=== PATIENT | female | born 1990 | race Caucasian/White ===

== ENCOUNTER 2021-08-08 09:56 | Emergency (ER) | payer OTHER, SELFPAY ==
--- NOTE | ~2021-08-08 | CT_ITS ---
EXAMINATION: CT SOFT TISSUE NECK WITHOUT CONTRAST CLINICAL INFORMATION: Headaches and right jaw, a mouth and ear pain. COMPARISON: None TECHNIQUE: Helical imaging was performed in the axial plane with generation of coronal and sagittal reformatted images. This CT examination was performed using dose optimization techniques as appropriate, variously including the following: *Automated exposure control *Adjustment of mA and/or kV according to patient size (this includes techniques or standardized protocols for targeted exams where dose is matched to indication/reason for exam; i.e. extremities or head) *Use of iterative reconstruction technique DLP: 642 mGy-cm FINDINGS: No cervical lymphadenopathy. No appreciable mucosal space mass. Major salivary glands and thyroid gland are unremarkable. No retropharyngeal edema/swelling. Globes and retro-orbital structures are within normal limits. Normal appearance of the clay dry press operator space. Parapharyngeal fat is symmetric. Minimal hazy atelectasis in the dependent visualized lungs. No consolidation or suspicious appearing pulmonary nodules. Normal caliber visualized thoracic aorta. No lymphadenopathy in the visualized mediastinum. Review of bone windows demonstrates no subluxation or fracture visualized spine. Intervertebral disc heights are maintained. Mild lobulated mucosal thickening along the floor the maxillary antra bilaterally. No air-fluid levels hyperostosis. Paranasal sinuses and mastoid air cells are otherwise normally aerated. Middle ear cavities are normally aerated. Temporomandibular joints are normally located. No appreciable degenerative or erosive change. No periapical lucencies to suggest dental abscess. CT/CT soft tissue neck wo con IMPRESSION: 1. No findings to explain the patient's pain. No soft tissue mass. 2. Minimal mucosal thickening in the maxillary antra bilaterally. No evidence of acute sinusitis.
--- NOTE | ~2021-08-08 | CT_ITS ---
EXAMINATION: CT HEAD WITHOUT CONTRAST CLINICAL INFORMATION: Migraine worse than normal COMPARISON: Head CT 06/10/2019 TECHNIQUE: Imaging was performed from the skull base to vertex without intravenous administration of contrast. This CT examination was performed using dose optimization techniques as appropriate, variously including the following: *Automated exposure control *Adjustment of mA and/or kV according to patient size (this includes techniques or standardized protocols for targeted exams where dose is matched to indication/reason for exam; i.e. extremities or head) *Use of iterative reconstruction technique Total exam dose length product: 702 mGy-cm FINDINGS: No intra or extra-axial fluid collection, hemorrhage, or mass. No ventriculomegaly. No midline shift or herniation. Basal cisterns are patent. Pedersen-white matter differentiation is maintained. No territorial encephalomalacia. Cluster calcifications in the pineal region are unchanged. No significant volume loss. There is no abnormal attenuation within the brain parenchyma. No calvarial fracture or soft tissue abnormality. The mastoid air cells and visualized portions of the paranasal sinuses are well aerated. Small exostosis or osteoma projecting from the inner table of the anterior right frontal bone noted. No aggressive features. CT/CT head/brain wo con IMPRESSION: 1. No acute intracranial pathology.
[2021-08-08 10:32] VITALS: BP 118/61; PULSE 62; RESP 18; TEMP 36.8; O2SAT 98; BMI 31.7
[2021-08-08 11:05] LABS: MANUAL DIFF FLAG NO
[2021-08-08 11:12] LABS: Basophils Percent Auto 0.4 % (0-2); Eosinophils Absolute Auto 0.4 X10*3/uL (0.0-0.4); Eosinophils Percent Auto 3.5 % (0-4); Hemoglobin 13.1 g/dl (12.0-16.0); Imm Gran Abs Auto 0.03 X10*3/uL (0.00-0.03); Imm Gran Pct Auto 0.3 % (0.0-0.4); Lymphocytes Absolute Auto 2.6 X10*3/uL (1.2-4.9); Lymphocytes Percent Auto 24.8 % (20-40); Mean Corpuscular HGB Conc 32.8 g/dl (31.0-35.0); Mean Corpuscular Hemoglobin 28.5 pg (27.0-33.0); Mean Platelet Volume 9.1 fL (9.4-12.3); Monocytes Absolute Auto 0.6 X10*3/uL (0.1-1.2); Monocytes Percent Auto 5.4 % (2-11); Neutrophils Absolute Auto 6.8 x10*3/uL (2.0-8.3); Neutrophils Percent Auto 65.6 % (45-73); Platelet Count 293 X10*3/uL (160-400); Red Cell Distribution Width 12.5 % (11.0-16.0); White Blood Count 10.3 X10*3/uL (4.8-10.8)
[2021-08-08 11:22] LABS: Alanine Aminotransferase 12 U/L (0-31); Albumin Level 4.1 g/dL (3.5-5.0); Alkaline Phosphatase 72 U/L (39-117); Anion Gap 10 (12-20); Aspartate Amino Transferase 12 U/L (5-31); Bilirubin Total 0.2 mg/dL (0.0-1.0); Blood Urea Nitrogen 7 mg/dL (9-16); C Reactive Protein 0.09 mg/dL (< or = 0.50); Calcium 9.3 mg/dL (8.4-10.2); Carbon Dioxide 28 mmol/L (22-29); Chloride 105 mmol/L (96-108); Creatinine Clr Calc Pharmacy 130.1; Estimated Glomerular Filt Rate > 60; Glucose Random 96 mg/dL (60-115); Potassium 4.4 mmol/L (3.3-5.1); Sodium 139 mmol/L (135-145)
[2021-08-08 12:46] LABS: Erythrocyte Sedimentation Rate 6 MM/HR (0-20)
[2021-08-08] MEDS: Ketorolac Tromethamine 30 MG/ML VIAL IM (16:08)
[2021-08-08] MEDS: Butalb/Acetamin/Caff 50/325/40 TABLET 2 TAB PO (16:08)
[2021-08-08 16:22] LABS: Appearance Urine CLEAR; Color Urine YELLOW; Glucose Urine UA NEG (NEG); Leukocyte Esterase Urine NEG (NEG); Nitrite Urine NEG (NEG); Specific Gravity - Urine 1.015 (1.005-1.025); Urine Blood NEG (NEG); Urine Ketones NEG (NEG); Urine Protein NEG (NEG-TRACE)
--- NOTE | 2021-08-08 16:25 | ED.HA ---
HPI - Headache General Chief Complaint: General Medical Stated Complaint: migraine, right jaw pain Time Seen by Provider: 08/08/21 10:51 Source: patient Mode of arrival: ambulatory Limitations: no limitations History of Present Illness HPI Narrative: 31-year-old female with a past medical history of asthma migraine headaches currently on 10 mg of propanolol presenting to the ED with complaints of a migraine headache to the bilateral temporal areas and right side of the face that has been intermittent over the past 3 weeks with associated right ear pain and right jaw pain. 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 She reports that she was seen at the urgent care for an ear infection given Augmentin and no symptomatic relief therefore she returned back to the urgent care this morning and they reported that the infection does not appear to be better and advised her to come to the emergency department they also noticed a lump in the inside of her mouth/she. She reports that [facility] She also had a negative strep and COVID. She reports that she also took 1000 mg of Motrin and 1000 mg of Tylenol. I explained to her that the limit for Motrin is 800 mg every 6-8 hours and she understands not to take a 1000 mg of Motrin next time. She reports that she has been having associated low-grade fevers of 99.0 through 100.0 temp orally otherwise no chills or sweats. She denies any recent falls or trauma, changes in vision, recent tick bite or CO2 exposure, she denies any new medications, recent spinal/epidural procedure, close contacts with similar symptoms, changes in vision, neck pain/stiffness, trouble swallowing or breathing, sore throat, trismus, drooling, changes in voice, recent sick contacts or travel, cough, nasal congestion/rhinorrhea, rashes or any other symptoms complaints or concerns at this time. MD elicited complaint: headache and migraine Pertinent past history: migraines Onset (ago): week(s) (3) Onset description: gradually Location: right, temporal, facial and maxillary Severity: moderate Quality & Timing: aching, throbbing, pulsatile, constant, pressure, progressively worsening and different than previous headaches Exacerbating factors: none Relieving factors: nothing Context: other (Cannot recall) Associated symptoms: fever (99.0-100.0 temporally ) and other (right facial, ear and jaw pain ) Treatments prior to arrival: acetaminophen (1000mg ), ibuprofen (1000mg ) and other (And her prescribed propanolol) Related Data Previous Rx's Medication Instructions Recorded [id number]-ghprcmpefetzi-[id number] 1 cap PO Q8H PRN pain #14 caps 08/08/21 50 mg-300 mg-40 mg capsule (Fioricet) cyclobenzaprine 10 mg tablet 10 mg PO Q8H Muscle spasms #14 tabs 08/08/21 naproxen 500 mg tablet 500 mg PO BID PRN pain #14 tabs 08/08/21 ondansetron 4 mg disintegrating 4 mg PO Q8H nausea/vomiting #14 08/08/21 tablet tabs Allergies Allergy/AdvReac Type Severity Reaction Status Date / Time erythromycin base Allergy Unknown UNKNOWN Verified 08/08/21 10:37 [ERYTHROMYCIN BASE] latex [LATEX] Allergy Unknown UNKNOWN Verified 08/08/21 10:37 Adhesive tape Allergy Unknown Unknown Uncoded 08/08/21 10:37 Erthromycin Allergy Unknown Unknown Uncoded 08/08/21 10:37 Latex Allergy Unknown Unknown Uncoded 08/08/21 10:37 Review of Systems Review of Systems: Constitutional : + Fever's, No changes in activity, No lethargy, No recent prior head injury, No agitation, No increased fussiness ENT/Mouth : + Right Ear Pain/Jaw pain, No Nasal discharge/drainage Eyes: No Eye Pain, No Swelling, No Redness, No Foreign Body, No Vision Changes Cardiovascular : No Chest Pain, No SOB Respiratory : No Cough Gastrointestinal : No Nausea, No Vomiting, No abdominal Pain Genitourinary : No Dysuria, No Urinary Frequency, No Urinary Incontinence, No Urgency, No Flank Pain Musculoskeletal : No joint pain, No neck stiffness, No back pain/injury Skin : No lacerations Neuro : No unsteady gait, No Paresthesias, No Loss of Consciousness, No altered mental status, No dizziness, + Headache Denies past medical history of HIV, recent trauma, coagulopathy, recent spinal/ epidural procedure, new medication, URI symptoms, close contacts with similar symptoms, tick bite, or known CO2 exposure. Yes all other systems are reviewed and are negative PMFSH Past Medical History Attestation statement: The following information was validated with the patient. Source: old records reviewed and nursing notes reviewed Social History Social History Advance Directives: No Advance Directives Information Provided: No Physical Exam Vital Signs: Vital Signs: Last Vital Signs Temp 96.8 F 08/08/21 17:06 Pulse 51 08/08/21 17:06 Resp 16 08/08/21 17:06 BP 105/48 L 08/08/21 17:06 Pulse Ox 98 08/08/21 17:06 O2 Del Method 08/08/21 17:06 BMI result Body Mass Index 31.7 Vital signs have been reviewed as normal and appeared to be correct. Blood pressure normal. Heart rate normal. Respiration rate normal. Temperature normal. Oxygen saturation normal. Appearance: Alert. Oriented X3. No acute distress. Head: Normal external exam. Normocephalic. Atraumatic. Able to rotate head bilaterally. No temporal artery tendinitis on my exam noted. Eyes: PERRLA. EOMI. No nystagmus noted. Conjunctiva and sclera normal. Eyelids normal. Corneal reflex normal. ENT: EAC normal. TM's Normal. Hearing normal. Pharynx normal. Uvula midline. tongue midline. Moist mucous membranes. No trismus noted. No drooling noted. No muffled voice noted. While I firmly palpate the pre-auricular area and have the patient open and close her mouth she reports that she has pain when opening and closing her mouth and she does have some intraoral tenderness on palpation of the pterygoid muscle on the right side. Neck: Normal inspection. Neck supple. FROM. No adenopathy. Thyroid Normal. No meningeal signs. No neck mass noted. CVS: Normal heart rate and rhythm. Heart sound normal. No murmurs noted. Pulses normal throughout. Respiratory: No respiratory distress. Painless inspiration. Breath sounds normal. No wheezes/rales/rhonchi noted. Chest nontender. No accessory muscle usage noted or decreased air movement noted. Back: Full range of motion noted. Skin: Skin warm and dry. Normal skin color. Normal skin turgor. No rashes/lesions/lacerations noted. Extremities: Extremities exhibit normal range of motion. Extremities nontender. Able to shrug shoulders bilaterally and keep up against resistance. Neuro: Oriented X 3. No motor deficit. No sensory deficit. Reflexes normal. Moving all extremities. No focal motor deficits. Cranial nerves II-XI intact bilaterally. Facial strength normal. Normal cognition. Speech normal. Gait normal. Strength 5/5 throughout. No pronator drift. No tremor noted. No fasciculations noted. Muscle tone normal throughout. No asterixis noted. No rigidity noted. Course Course Course Narrative: 16pm - Patient afebrile, resting comfortably in no distress. Non-toxic appearing. Patient denies any recent trauma/injury to head. Neurological exam shows no deficits. BP WNL. Denies any changes in vision. Patient ambulates without difficulty. Given the history, and physical - most likely diagnosis: Migraine ANDREWS. Although due to patient reporting that this is longer than her usual headaches will obtain CT scan of brain/soft tissue neck to evaluate for any acute processes. - labs reviewed and all within normal limits including ESR/CRP. Negative urine - Will treat pain with Fioricet and IM Toradol. And re-evaluate SAH: unlikely given gradual onset and similar to previous episodes Intracranial bleed: unlikely given neg trauma, neg anticoagulation Meningitis: unlikely given pt afebrile, neg stiff neck, no immune compromise. Exam without signs of meningismus Temporal arteritis: Unlikely given Neg jaw claudication, no temporal tenderness or nodularity on exam. Cerebral venous thrombosis: unlikely given no h/o hypercoaguable state, no chronic head/neck infection. Reevaluation(s) Reevaluation #1: - CT scan of head and neck revealed chronic changes no acute processes noted. Therefore patient most likely TMJ syndrome and migraine headaches. Will DC home with symptomatic treatment instructions return if any new or worsening symptoms follow up with primary care provider. Patient understands agrees with this plan. Time: 17:23 [facility] - Headache Medical Records Attestation: I reviewed the patient's medical records. Lab Data Attestation: I reviewed the patient's lab results. Result diagrams: 08/08/21 11:03 08/08/21 11:03 Labs: Lab Results 08/08/21 08/08/21 08/08/21 Range/Units 11:03 11:03 11:03 WBC 10.3 (4.8-10.8) X10*3/uL RBC 4.60 (4.20-5.50) X10*6/uL Hgb 13.1 (12.0-16.0) g/dl Hct 40.0 (37.0-47.0) % MCV 87.0 (80.0-98.0) fL MCH 28.5 (27.0-33.0) pg MCHC 32.8 (31.0-35.0) g/dl RDW 12.5 (11.0-16.0) % Plt Count 293 (160-400) X10*3/uL MPV 9.1 L (9.4-12.3) fL Immature Gran % (Auto) 0.3 (0.0-0.4) % Neut % (Auto) 65.6 (45-73) % Lymph % (Auto) 24.8 (20-40) % Dunn % (Auto) 5.4 (2-11) % Eos % (Auto) 3.5 (0-4) % Baso % (Auto) 0.4 (0-2) % Lymph # (Auto) 2.6 (1.2-4.9) X10*3/uL Dunn # (Auto) 0.6 (0.1-1.2) X10*3/uL Eos # (Auto) 0.4 (0.0-0.4) X10*3/uL Baso # (Auto) 0.0 (0.0-0.2) X10*3/uL Abs Immat Gran (auto) 0.03 (0.00-0.03) X10*3/uL Absolute Neuts (auto) 6.8 (2.0-8.3) x10*3/uL Absolute Nucleated RBC 0.000 (0.0-0.012) X10*3/uL Nucleated RBC % (auto) 0.0 (0.0-0.2) /100WBC ESR 6 (0-20) MM/HR Sodium 139 (135-145) mmol/L Potassium 4.4 (3.3-5.1) mmol/L Chloride 105 (96-108) mmol/L Carbon Dioxide 28 (22-29) mmol/L Anion Gap 10 L (12-20) BUN 7 L (9-16) mg/dL Creatinine 0.65 (0.5-1.4) mg/dL Estim Creat Clear Calc 130.1 Estimated GFR > 60 Random Glucose 96 (60-115) mg/dL Lactic Acid (0.5-2.0) mmol/L Calcium 9.3 (8.4-10.2) mg/dL Total Bilirubin 0.2 (0.0-1.0) mg/dL AST 12 (5-31) U/L ALT 12 (0-31) U/L Alkaline Phosphatase 72 (39-117) U/L C-Reactive Protein 0.09 (< or = 0.50) mg/dL Total Protein 6.0 L (6.5-8.0) g/dL Albumin 4.1 (3.5-5.0) g/dL Urine Test (NEGATIVE) 08/08/21 08/08/21 Range/Units 11:03 16:06 WBC (4.8-10.8) X10*3/uL RBC (4.20-5.50) X10*6/uL Hgb (12.0-16.0) g/dl Hct (37.0-47.0) % MCV (80.0-98.0) fL MCH (27.0-33.0) pg MCHC (31.0-35.0) g/dl RDW (11.0-16.0) % Plt Count (160-400) X10*3/uL MPV (9.4-12.3) fL Immature Gran % (Auto) (0.0-0.4) % Neut % (Auto) (45-73) % Lymph % (Auto) (20-40) % Dunn % (Auto) (2-11) % Eos % (Auto) (0-4) % Baso % (Auto) (0-2) % Lymph # (Auto) (1.2-4.9) X10*3/uL Dunn # (Auto) (0.1-1.2) X10*3/uL Eos # (Auto) (0.0-0.4) X10*3/uL Baso # (Auto) (0.0-0.2) X10*3/uL Abs Immat Gran (auto) (0.00-0.03) X10*3/uL Absolute Neuts (auto) (2.0-8.3) x10*3/uL Absolute Nucleated RBC (0.0-0.012) X10*3/uL Nucleated RBC % (auto) (0.0-0.2) /100WBC ESR (0-20) MM/HR Sodium (135-145) mmol/L Potassium (3.3-5.1) mmol/L Chloride (96-108) mmol/L Carbon Dioxide (22-29) mmol/L Anion Gap (12-20) BUN (9-16) mg/dL Creatinine (0.5-1.4) mg/dL Estim Creat Clear Calc Estimated GFR Random Glucose (60-115) mg/dL Lactic Acid 1.0 (0.5-2.0) mmol/L Calcium (8.4-10.2) mg/dL Total Bilirubin (0.0-1.0) mg/dL AST (5-31) U/L ALT (0-31) U/L Alkaline Phosphatase (39-117) U/L C-Reactive Protein (< or = 0.50) mg/dL Total Protein (6.5-8.0) g/dL Albumin (3.5-5.0) g/dL Urine Test NEGATIVE (NEGATIVE) Imaging Data CT scan of brain and soft tissue neck without contrast: Attestation: I personally reviewed and interpreted this imaging study as follows: Radiologist's impression: FINDINGS: No intra or extra-axial fluid collection, hemorrhage, or mass. No ventriculomegaly. No midline shift or herniation. Basal cisterns are patent. Pedersen-white matter differentiation is maintained. No territorial encephalomalacia. Cluster calcifications in the pineal region are unchanged. No significant volume loss. There is no abnormal attenuation within the brain parenchyma. No calvarial fracture or soft tissue abnormality.? The mastoid air cells and visualized portions of the paranasal sinuses are well aerated. Small exostosis or osteoma projecting from the inner table of the anterior right frontal bone noted. No aggressive features. CT/CT head/brain wo con IMPRESSION: 1. No acute intracranial pathology. FINDINGS: No cervical lymphadenopathy. No appreciable mucosal space mass. Major salivary glands and thyroid gland are unremarkable. No retropharyngeal edema/swelling. Globes and retro-orbital structures are within normal limits. Normal appearance of the crossbow maker space. Parapharyngeal fat is symmetric. Minimal hazy atelectasis in the dependent visualized lungs. No consolidation or suspicious appearing pulmonary nodules. Normal caliber visualized thoracic aorta. No lymphadenopathy in the visualized mediastinum. Review of bone windows demonstrates no subluxation or fracture visualized spine. Intervertebral disc heights are maintained. Mild lobulated mucosal thickening along the floor the maxillary antra bilaterally. No air-fluid levels hyperostosis. Paranasal sinuses and mastoid air cells are otherwise normally aerated. Middle ear cavities are normally aerated. Temporomandibular joints are normally located. No appreciable degenerative or erosive change. No periapical lucencies to suggest dental abscess. CT/CT soft tissue neck wo con IMPRESSION: ? ? 1. No findings to explain the patient's pain. No soft tissue mass. 2. Minimal mucosal thickening in the maxillary antra bilaterally. No evidence of acute sinusitis. ? 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
[2021-08-08 16:31] LABS: UPreg QC Valid YES; Urine Pregnancy NEGATIVE (NEGATIVE)
[2021-08-08] MEDS: Ondansetron ODT 4 MG TAB.RAPDIS TRANSLINGU (17:00)
[2021-08-08] MEDS: Cyclobenzaprine HCl 10 MG TABLET PO (17:00)
[2021-08-08 17:06] VITALS: BP 105/48; PULSE 51; RESP 16; TEMP 36; O2SAT 98
== END 2021-08-08 17:43 | disposition home or self-care (01) ==
PROVIDERS: Emergency Medicine Emergency Medical Services; Physician Assistant Medical; Emergency Provider Emergency Medicine; PCP Registered Nurse
DX: G43.909 Migraine, unspecified, not intractable, without status migrainosus (principal); M26.621 Arthralgia of right temporomandibular joint; Z79.899 Other long term (current) drug therapy
CPT/HCPCS: 36415; 70450; 70490; 80053; 81003; 81025; 83605; 85025; 85652; 86140; 99283; J1885

== ENCOUNTER 2021-10-04 08:22 | Emergency (ER) | payer OTHER, SELFPAY ==
--- NOTE | ~2021-10-04 | CT_ITS ---
EXAMINATION: CT ABDOMEN AND PELVIS WITHOUT CONTRAST CLINICAL INFORMATION: Negative test bilateral back/flank pain COMPARISON: CT abdomen and pelvis from 01/14/2016 TECHNIQUE: Multidetector volumetric imaging was performed from the superior aspect of the liver through the pubic symphysis. Sagittal and coronal reformatted images were obtained on the technologist's workstation. This CT examination was performed using dose optimization techniques as appropriate, variously including the following: *Automated exposure control *Adjustment of mA and/or kV according to patient size (this includes techniques or standardized protocols for targeted exams where dose is matched to indication/reason for exam; i.e. extremities or head) *Use of iterative reconstruction technique DLP: 677 mGy-cm FINDINGS: LUNG BASES: The visualized lung bases are unremarkable. LIVER, GALLBLADDER, AND BILIARY TREE: The liver is normal in size, shape, and attenuation. No focal hepatic lesion or biliary ductal dilatation is present. The gallbladder is unremarkable with no evidence of radiopaque gallstones, gallbladder wall thickening, or obvious pericholecystic inflammatory changes. PANCREAS: Unremarkable. SPLEEN: Spleen is enlarged measuring up to 14.8 cm. ADRENAL GLANDS: Unremarkable. KIDNEYS AND URETERS: The kidneys are normal in size, shape, and attenuation. No hydronephrosis, hydroureter, or calculi seen. No perinephric stranding. BLADDER: Unremarkable. GASTROINTESTINAL TRACT: The small and large bowel are unremarkable. The appendix is surgically absent. ABDOMINAL WALL: Fat filled umbilical hernia. LYMPH NODES: Redemonstration of multiple mildly prominent lymph nodes inferior to the right kidney and in the right lower quadrant of the abdomen, nonspecific though may represent an element of mesenteric adenitis in the appropriate clinical setting the largest of which measures 1.1 cm in short axis. VASCULAR: Abdominal aorta is nonaneurysmal. Pelvic phleboliths are noted. PELVIC VISCERA: Anteverted uterus. Left adnexal/ovarian hypodensity demonstrating fluid attenuation statistically representing a cyst measuring up to 2.2 cm. OSSEOUS STRUCTURES: Multilevel degenerative changes of the thoracolumbar spine. Stable loss of height of the superior endplate of T11. No large lytic or blastic lesions are noted. CT/CT abdomen pelvis wo con IMPRESSION: 1. No acute process of the abdomen or pelvis visualized. 2. Splenomegaly measuring up to 14.8 cm. 3. Redemonstration of multiple mildly prominent lymph nodes inferior to the right kidney and in the right lower quadrant of the abdomen, nonspecific though may represent an element of mesenteric adenitis in the appropriate clinical setting the largest of which measures 1.1 cm in short axis. 4. Fat filled umbilical hernia. 5. Left adnexal/ovarian hypodensity demonstrating fluid attenuation statistically representing a cyst measuring up to 2.2 cm.
[2021-10-04 08:32] VITALS: BP 129/73; PULSE 74; RESP 20; TEMP 36.8; O2SAT 98
--- NOTE | 2021-10-04 08:54 | ED_ITS ---
HPI - Abdominal Pain General Chief Complaint: General Medical Stated Complaint: Back pain/Vomiting/Covid+ 09/29 Time Seen by Provider: 10/04/21 08:29 Source: patient Mode of arrival: ambulatory Limitations: no limitations History of Present Illness HPI narrative: Patient presents emergency department for evaluation of bilateral flank pain. Onset 4 days ago. Initially a dull ache. Now having severe 10/10 pain. Right is worse than the left, and is beginning to radiate towards the front. Reports a history of kidney infections and this feels similar but is just worse. Associated nausea, vomiting, decreased urinary output inability to tolerate food. She states that she tested positive for COVID-19 5 days ago, initially she thought her symptoms were just due to muscular aches. Denies fevers, chills, dysuria, urinary frequency/urgency, hematuria, possibility of , last menstrual period 09/21/2021. Related Data Previous Rx's Medication Instructions Recorded gsulvdcfpt-[id number]-kruuqaiz 1 cap PO Q8H PRN pain #14 caps 08/08/21 50 mg-300 mg-40 mg capsule (Fioricet) cyclobenzaprine 10 mg tablet 10 mg PO Q8H Muscle spasms #14 tabs 08/08/21 naproxen 500 mg tablet 500 mg PO BID PRN pain #14 tabs 08/08/21 ondansetron 4 mg disintegrating 4 mg PO Q8H nausea/vomiting #14 08/08/21 tablet tabs cephalexin 500 mg capsule 500 mg PO BID 10 days #20 caps 10/04/21 naproxen 500 mg tablet 500 mg PO BID PRN pain 5 days #10 10/04/21 tabs oxycodone 5 mg capsule 5 mg PO Q8H PRN pain, severe 3 10/04/21 days #7 caps Allergies Allergy/AdvReac Type Severity Reaction Status Date / Time erythromycin base Allergy Unknown UNKNOWN Verified 08/08/21 10:37 [ERYTHROMYCIN BASE] latex [LATEX] Allergy Unknown UNKNOWN Verified 08/08/21 10:37 Adhesive tape Allergy Unknown Unknown Uncoded 08/08/21 10:37 Erthromycin Allergy Unknown Unknown Uncoded 08/08/21 10:37 Latex Allergy Unknown Unknown Uncoded 08/08/21 10:37 Review of Systems Review of Systems Constitutional : No Weight loss, No Fever, No Chills ENT/Mouth :? No sore throat, No Rhinorrhea Eyes: No Swelling, No Redness Cardiovascular : No Chest Pain, No SOB, No Edema Respiratory : No Cough, No Sputum, No Wheezing Gastrointestinal : Positive Nausea, Positive Vomiting, no Diarrhea, positive abdominal pain, No Hematochezia, No Melena Genitourinary : No Dysuria, No Urinary Frequency, No Hematuria, No Urgency? Musculoskeletal : No joint pain, No Myalgias, No Joint Swelling Skin : No Skin Lesions, No rash Neuro : No Weakness, No Numbness, No Dizziness, No Headache Psych : No Anxiety/Panic, No Depression Heme/Lymph: No Bruising, No Lymphadenopathy Endocrine : No Polyuria, No Polydipsia Yes all other systems are reviewed and are negative [facility] Past Medical History Attestation statement: The following information was validated with the patient. Source: old records reviewed Social History Social History Advance Directives: No Advance Directives Information Provided: Yes Physical Exam ED Vital Signs: Vital Signs - 24 hr 10/04/21 08:32 10/04/21 08:57 10/04/21 11:28 Temperature 98.2 F 98.2 F Pulse Rate 74 74 62 Respiratory Rate 20 20 18 Blood Pressure 129/73 129/73 115/50 L Pulse Oximetry 98 98 100 Oxygen Delivery Method Room Air Room Air Room Air 10/04/21 11:33 Temperature Pulse Rate Respiratory Rate 16 Blood Pressure Pulse Oximetry Oxygen Delivery Method BMI result Body Mass Index 31.7 Vital signs have been reviewed as normal and appeared to be correct. Blood pressure normal.? Heart rate normal.? Respiration rate normal. Temperature norm al.? Oxygen saturation normal. Appearance: Alert.?Oriented to person, place and time. No acute distress.?Normal affect. Eyes: Pupils equal, round and reactive to light.? ENT: Pharynx normal.?? Neck: Normal inspection.? Neck supple.?? CVS: Heart sounds normal. Normal heart rate and rhythm.? Pulses normal.?? Respiratory: No respiratory distress.? Lung sounds clear to auscultation bilaterally?? Abdomen: Soft and non-tender. Normoactive bowel sounds. Positive CVA tenderness bilaterally Skin: Skin warm and dry.? Normal skin color.? Extremities: No lower extremity edema.? Neuro: Moves all extremities spontaneously. Sensation intact bilaterally. No motor deficits Ambulates with normal steady gait. Course Course Course Narrative: Patient is a 31-year-old female presents emergency department for evaluation of bilateral flank pain and subjective decreased urinary output. She appears uncomfortable, tearful, vital signs are stable she is afebrile and not tachycardic. Will obtain CBC to evaluate for leukocytosis/ anemia, CMP and lipase to evaluate for abnormal electrolytes /abnormal renal function/ abnormal hepatic/biliary function, urine and Urinalysis. CT of the abdomen to evaluate for pyelonephritis versus nephrolithiasis. Patient receive normal saline 1 L IV bolus, Reglan IV, and Toradol IV. Disposition pending results. Reevaluation(s) Reevaluation #1: CBC is overall unremarkable. CMP is unremarkable. Urine test is negative. Urinalysis reveals a small amount of blood, trace leukocyte esterase. CT of the abdomen and pelvis is pending at this time. Upon re-evaluation, pain remains 8/10, will trial morphine IV. Time: 10:43 Reevaluation #2: CT of the abdomen and pelvis reveals no acute process, incidental finding of splenomegaly, redemonstration of prominent lymph nodes inferior to right kidney and right lower quadrant, fat filled umbilical hernia, and left adnexal/ovarian hypodensity likely representing a cyst. Overall no acute explanation for patient's pain. At this time, will begin treatment for urinary tract infection, presumed pyelonephritis given bilateral CVA tenderness. Discussed worsening signs and symptoms the patient should return back to the emergency department for. Advised outpatient follow-up with her primary care provider within 2-3 d ays. Patient verbalized understanding, and discharged home in stable condition. Time: 11:20 [facility] - Abdominal Pain Medical Records Attestation: I reviewed the patient's medical records. Lab Data Attestation: I reviewed the patient's lab results. Result diagrams: 10/04/21 09:13 10/04/21 09:12 Labs: Lab Results 10/04/21 10/04/21 10/04/21 Range/Units 09:05 09:05 09:12 WBC (4.8-10.8) X10*3/uL RBC (4.20-5.50) X10*6/uL Hgb (12.0-16.0) g/dl Hct (37.0-47.0) % MCV (80.0-98.0) fL MCH (27.0-33.0) pg MCHC (31.0-35.0) g/dl RDW (11.0-16.0) % Plt Count (160-400) X10*3/uL MPV (9.4-12.3) fL Immature Gran % (Auto) (0.0-0.4) % Neut % (Auto) (45-73) % Lymph % (Auto) (20-40) % [place] % (Auto) (2-11) % Eos % (Auto) (0-4) % Baso % (Auto) (0-2) % Lymph # (Auto) (1.2-4.9) X10*3/uL [place] # (Auto) (0.1-1.2) X10*3/uL Eos # (Auto) (0.0-0.4) X10*3/uL Baso # (Auto) (0.0-0.2) X10*3/uL Abs Immat Gran (auto) (0.00-0.03) X10*3/uL Absolute Neuts (auto) (2.0-8.3) x10*3/uL Absolute Nucleated RBC (0.0-0.012) X10*3/uL Nucleated RBC % (auto) (0.0-0.2) /100WBC Sodium 140 (135-145) mmol/L Potassium 4.4 (3.3-5.1) mmol/L Chloride 105 (96-108) mmol/L Carbon Dioxide 24 (22-29) mmol/L Anion Gap 15 (12-20) BUN 10 (9-16) mg/dL Creatinine 0.81 (0.5-1.4) mg/dL Estim Creat Clear Calc 104.5 Estimated GFR > 60 Random Glucose 89 (60-115) mg/dL Calcium 9.2 (8.4-10.2) mg/dL Total Bilirubin 0.5 (0.0-1.0) mg/dL AST 26 D (5-31) U/L ALT 25 (0-31) U/L Alkaline Phosphatase 106 D (39-117) U/L Total Protein 6.5 (6.5-8.0) g/dL Albumin 4.1 (3.5-5.0) g/dL Lipase 21 (8-78) U/L Urine Color Yellow Urine Appearance Hazy Urine pH 7.0 (5.0-8.0) Ur Specific [place] 1.015 (1.005-1.025) Urine Protein Negative (Neg-Trace) mg/dL Urine Glucose (UA) Negative (Negative) mg/dL Urine Ketones Negative (Negative) mg/dL Urine Blood Small (1+) H (Negative) Urine Nitrite Negative (Negative) Ur Leukocyte Esterase Trace H (Negative) Urine RBC 0-2 (0-2) /HPF Urine WBC 0-5 (0-5) /HPF Ur Squamous Epith Cells 11-20 (0-2) /HPF Urine Bacteria Trace (None Seen) Hyaline Casts 0-2 (0-2) /LPF Urine Test NEGATIVE (NEGATIVE) 10/04/21 Range/Units 09:13 WBC 6.2 (4.8-10.8) X10*3/uL RBC 4.70 (4.20-5.50) X10*6/uL Hgb 13.4 (12.0-16.0) g/dl Hct 40.1 (37.0-47.0) % MCV 85.3 (80.0-98.0) fL MCH 28.5 (27.0-33.0) pg MCHC 33.4 (31.0-35.0) g/dl RDW 12.7 (11.0-16.0) % Plt Count 310 (160-400) X10*3/uL MPV 9.2 L (9.4-12.3) fL Immature Gran % (Auto) 0.3 (0.0-0.4) % Neut % (Auto) 52.6 (45-73) % Lymph % (Auto) 30.8 (20-40) % [place] % (Auto) 10.6 (2-11) % Eos % (Auto) 5.2 H (0-4) % Baso % (Auto) 0.5 (0-2) % Lymph # (Auto) 1.9 (1.2-4.9) X10*3/uL [place] # (Auto) 0.7 (0.1-1.2) X10*3/uL Eos # (Auto) 0.3 (0.0-0.4) X10*3/uL Baso # (Auto) 0.0 (0.0-0.2) X10*3/uL Abs Immat Gran (auto) 0.02 (0.00-0.03) X10*3/uL Absolute Neuts (auto) 3.2 (2.0-8.3) x10*3/uL Absolute Nucleated RBC 0.000 (0.0-0.012) X10*3/uL Nucleated RBC % (auto) 0.0 (0.0-0.2) /100WBC Sodium (135-145) mmol/L Potassium (3.3-5.1) mmol/L Chloride (96-108) mmol/L Carbon Dioxide (22-29) mmol/L Anion Gap (12-20) BUN (9-16) mg/dL Creatinine (0.5-1.4) mg/dL Estim Creat Clear Calc Estimated GFR Random Glucose (60-115) mg/dL Calcium (8.4-10.2) mg/dL Total Bilirubin (0.0-1.0) mg/dL AST (5-31) U/L ALT (0-31) U/L Alkaline Phosphatase (39-117) U/L Total Protein (6.5-8.0) g/dL Albumin (3.5-5.0) g/dL Lipase (8-78) U/L Urine Color Urine Appearance Urine pH (5.0-8.0) Ur Specific [place] (1.005-1.025) Urine Protein (Neg-Trace) mg/dL Urine Glucose (UA) (Negative) mg/dL Urine Ketones (Negative) mg/dL Urine Blood (Negative) Urine Nitrite (Negative) Ur Leukocyte Esterase (Negative) Urine RBC (0-2) /HPF Urine WBC (0-5) /HPF Ur Squamous Epith Cells (0-2) /HPF Urine Bacteria (None Seen) Hyaline Casts (0-2) /LPF Urine Test (NEGATIVE) Imaging Data CT scan - abdomen: Radiologist's impression: CT/CT abdomen pelvis wo con IMPRESSION: 1.? No acute process of the abdomen or pelvis visualized. 2.? Splenomegaly measuring up to 14.8 cm. 3.? Redemonstration of multiple mildly prominent lymph nodes inferior to the right kidney and in the right lower quadrant of the abdomen, nonspecific though may represent an element of mesenteric adenitis in the appropriate clinical setting the largest of which measures 1.1 cm in short axis. 4.? Fat filled umbilical hernia. 5.? Left adnexal/ovarian hypodensity demonstrating fluid attenuation statistically representing a cyst measuring up to 2.2 cm.? Discharge Plan Discharge Clinical Impression: Urinary tract infection Patient Disposition: Home, Self-Care Additional Instructions: You have been given a prescription for cephalexin this is an antibiotic to treat urinary tract infection. Be sure to stay well hydrated. If you develop fevers, chills, nausea, vomiting severe worsening pain, hematuria, inability to urinate you should be re-evaluated. You have been given a prescription for naproxen to use twice daily as needed for pain, do not take additional [id number] medications such as aspirin, Tylenol/Motrin/Advil, or Aleve while taking this medication. If the naproxen is not helping you may trial oxycodone, this is a narcotic, it may be addictive, you should use this with caution. Additionally only take for severe pain. Please contact your primary care provider and arrange for a follow-up visit within 3 days. Prescriptions: New cephalexin 500 mg capsule 500 mg PO BID 10 Days Qty: 20 0RF naproxen 500 mg tablet 500 mg PO BID PRN (Reason: pain) 5 Days Qty: 10 0RF oxycodone 5 mg capsule 5 mg PO Q8H PRN (Reason: pain, severe) 3 Days Qty: 7 0RF Rx Instructions: Partial Fill upon patient request. No Action naproxen 500 mg tablet 500 mg PO BID PRN (Reason: pain) Qty: 14 0RF cyclobenzaprine 10 mg tablet 10 mg PO Q8H Qty: 14 0RF [id number]-aztrhocqlzoti-vqyy [Fioricet] 50-300-40 mg capsule 1 cap PO Q8H PRN (Reason: pain) Qty: 14 0RF ondansetron 4 mg tablet,disintegrating 4 mg PO Q8H Qty: 14 0RF Interventions: ED Discharge Assessment Last Done: 10/04/21 13:01 Discharge Date/Time: 10/04/21 13:02
[2021-10-04 08:57] VITALS: BP 129/73; PULSE 74; RESP 20; TEMP 36.8; O2SAT 98; BMI 31.7
[2021-10-04] MEDS: Ketorolac Tromethamine 30 MG/ML VIAL IVPUSH (09:21)
[2021-10-04] MEDS: 0.9 % Sodium Chloride 1,000 ML 999 ML IV (09:21)
[2021-10-04] MEDS: Metoclopramide HCl 10 MG/2 ML VIAL IVPUSH (09:27)
[2021-10-04 09:31] LABS: MANUAL DIFF FLAG NO
[2021-10-04 09:32] LABS: Basophils Percent Auto 0.5 % (0-2); Eosinophils Absolute Auto 0.3 X10*3/uL (0.0-0.4); Eosinophils Percent Auto 5.2 % (0-4); Hematocrit 40.1 % (37.0-47.0); Hemoglobin 13.4 g/dl (12.0-16.0); Imm Gran Abs Auto 0.02 X10*3/uL (0.00-0.03); Imm Gran Pct Auto 0.3 % (0.0-0.4); Lymphocytes Absolute Auto 1.9 X10*3/uL (1.2-4.9); Lymphocytes Percent Auto 30.8 % (20-40); Mean Corpuscular HGB Conc 33.4 g/dl (31.0-35.0); Mean Corpuscular Hemoglobin 28.5 pg (27.0-33.0); Mean Corpuscular Volume 85.3 fL (80.0-98.0); Mean Platelet Volume 9.2 fL (9.4-12.3); Monocytes Absolute Auto 0.7 X10*3/uL (0.1-1.2); Monocytes Percent Auto 10.6 % (2-11); Neutrophils Absolute Auto 3.2 x10*3/uL (2.0-8.3); Neutrophils Percent Auto 52.6 % (45-73); Platelet Count 310 X10*3/uL (160-400); Red Cell Distribution Width 12.7 % (11.0-16.0); White Blood Count 6.2 X10*3/uL (4.8-10.8)
[2021-10-04 09:36] LABS: Appearance Urine Hazy; Color Urine Yellow; Glucose Urine UA Negative (Negative); Leukocyte Esterase Urine Trace (Negative); Nitrite Urine Negative (Negative); Specific Gravity - Urine 1.015 (1.005-1.025); Urine Blood Small (1+) (Negative); Urine Ketones Negative (Negative); Urine Protein Negative (Neg-Trace)
[2021-10-04 09:39] LABS: UPreg QC Valid YES; Urine Pregnancy NEGATIVE (NEGATIVE)
[2021-10-04 09:51] LABS: Bacteria Urine Trace (None Seen); Hyaline Casts Urine 0-2 /LPF (0-2); RBC Urine 0-2 /HPF (0-2); WBC Urine 0-5 /HPF (0-5)
[2021-10-04 09:55] LABS: Alanine Aminotransferase 25 U/L (0-31); Albumin Level 4.1 g/dL (3.5-5.0); Alkaline Phosphatase 106 U/L (39-117); Anion Gap 15 (12-20); Aspartate Amino Transferase 26 U/L (5-31); Bilirubin Total 0.5 mg/dL (0.0-1.0); Blood Urea Nitrogen 10 mg/dL (9-16); Calcium 9.2 mg/dL (8.4-10.2); Carbon Dioxide 24 mmol/L (22-29); Chloride 105 mmol/L (96-108); Creatinine Clr Calc Pharmacy 104.5; Estimated Glomerular Filt Rate > 60; Glucose Random 89 mg/dL (60-115); Lipase 21 U/L (8-78); Potassium 4.4 mmol/L (3.3-5.1); Sodium 140 mmol/L (135-145); Total Protein 6.5 g/dL (6.5-8.0)
[2021-10-04 11:28] VITALS: BP 115/50; PULSE 62; RESP 18; O2SAT 100
[2021-10-04 11:33] VITALS: RESP 16
[2021-10-04] MEDS: Morphine Sulfate 4 MG/ML CARTRIDGE IVPUSH (11:33)
== END 2021-10-04 13:02 | disposition home or self-care (01) ==
PROVIDERS: Nurse Practitioner Family; Emergency Provider Emergency Medicine; PCP Nurse Practitioner Family
DX: N39.0 Urinary tract infection, site not specified (principal); U07.1 COVID-19; R10.2 Pelvic and perineal pain; M54.50 Low back pain, unspecified; Z79.899 Other long term (current) drug therapy
CPT/HCPCS: 36415; 74176; 80053; 81001; 81025; 83690; 85025; 96361; 96374; 96375; 99284; J1885; J2270; J2765

== ENCOUNTER 2021-10-26 09:54 | Emergency (ER) | payer OTHER, SELFPAY ==
--- NOTE | ~2021-10-26 | CT_ITS ---
EXAMINATION: CT ABDOMEN AND PELVIS WITH CONTRAST CLINICAL INFORMATION: Right abdominal pain. Rule out appendicitis. COMPARISON: October 04, 2021 and January 14, 2016. TECHNIQUE: Multidetector volumetric images were obtained from the superior aspect of the liver through the pubic symphysis following administration 85 mL of Omnipaque 350 intravenous contrast. Sagittal and coronal reformatted images were obtained on the technologist's workstation. Oral contrast: No This CT examination was performed using dose optimization techniques as appropriate, variously including the following: *Automated exposure control *Adjustment of mA and/or kV according to patient size (this includes techniques or standardized protocols for targeted exams where dose is matched to indication/reason for exam; i.e. extremities or head) *Use of iterative reconstruction technique DLP: 737 mGy-cm FINDINGS: LUNG BASES: The lung bases appear clear, with no evidence of inflammation or nodules. LIVER, GALLBLADDER, AND BILIARY TREE: Subcentimeter segment 5 benign simple hepatic cyst or hemangioma (image 36, series 3).. Suspect segment 4 focal fatty infiltration. The liver otherwise appears unremarkable in size, shape, and attenuation. No suspicious focal hepatic lesion or biliary ductal dilatation is appreciated. Unremarkable appearance of the gallbladder. PANCREAS: Unremarkable SPLEEN: Unremarkable ADRENAL GLANDS: Unremarkable KIDNEYS AND URETERS: The kidneys appear unremarkable in size, shape, and attenuation. No hydronephrosis, hydroureter, or calculi seen. BLADDER: Unremarkable GASTROINTESTINAL TRACT: Unremarkable appearance of the stomach and small bowel. Surgical chain jody in the region of the cecum. Normal-appearing distal ileum. Vermiform appendix not identified; no evidence of appendicitis. ABDOMINAL WALL: No significant hernia is appreciated. LYMPH NODES: At least 6 right lower quadrant mesenteric nodes measuring between 0.6 cm and 0.9 cm in short axis. VASCULAR: Unremarkable PELVIC VISCERA: Unremarkable OSSEOUS STRUCTURES: No change in mild compression deformity of T11. CT/CT abdomen pelvis w IV con IMPRESSION: No evidence of appendicitis. At least 6 right lower quadrant mesenteric nodes measuring between 0.6 cm and 0.9 cm in short axis. Cannot entirely exclude mesenteric adenitis.
--- NOTE | ~2021-10-26 | US_ITS ---
EXAMINATION: US ABDOMEN LIMITED CLINICAL INFORMATION: Right upper quadrant pain. Question cholecystitis.. COMPARISON: CT scan of the abdomen dated October 04, 2021. TECHNIQUE: Real-time imaging of the liver and biliary system. FINDINGS: PANCREAS: Not evaluated. LIVER: The liver is normal in size. The liver contour is normal. Parenchymal echogenicity is normal. No focal hepatic lesion identified. There is no intrahepatic biliary duct dilatation seen. GALLBLADDER: The gallbladder is physiologically distended without evidence of stones, sludge, polyps, wall thickening or pericholecystic fluid. COMMON BILE DUCT: Normal in caliber measuring 0.5 cm in diameter. RIGHT KIDNEY: Not evaluated. FREE FLUID: None. US/US abdomen limited IMPRESSION: Unremarkable appearance of the liver and biliary system.
[2021-10-26 11:04] VITALS: BP 153/81; PULSE 55; RESP 16; TEMP 36.3; O2SAT 98; BMI 30.9
--- NOTE | 2021-10-26 11:19 | ED_ITS ---
HPI - General Adult General Chief complaint: Abdominal Pain Stated complaint: R side pain referred from doctor. gallbladder Time Seen by Provider: 10/26/21 11:14 Source: patient Mode of arrival: ambulatory Limitations: no limitations History of Present Illness HPI narrative: 31-year-old female presents to ED for right upper quadrant pain as worse in the past 3 days. Patient station ultrasound with ago which showed that she had sludge in her gallbladder. Patient referred by primary care's to the ER for evaluation of acute cholecystitis. Patient states he has severe pain with nausea and vomiting. Patient states no improvement with tramadol. Patient denies any history of alcoholism, hepatitis, or pancreatitis. Patient denies any recent alcohol drink Related Data Previous Rx's Medication Instructions Recorded [id number]-[id number]-dxccowfh 1 cap PO Q8H PRN pain #14 caps 08/08/21 50 mg-300 mg-40 mg capsule (Fioricet) cyclobenzaprine 10 mg tablet 10 mg PO Q8H Muscle spasms #14 tabs 08/08/21 naproxen 500 mg tablet 500 mg PO BID PRN pain #14 tabs 08/08/21 ondansetron 4 mg disintegrating 4 mg PO Q8H nausea/vomiting #14 08/08/21 tablet tabs cephalexin 500 mg capsule 500 mg PO BID 10 days #20 caps 10/04/21 naproxen 500 mg tablet 500 mg PO BID PRN pain 5 days #10 10/04/21 tabs oxycodone 5 mg capsule 5 mg PO Q8H PRN pain, severe 3 10/04/21 days #7 caps oxycodone 5 mg capsule 5 mg PO TID PRN pain 3 days #9 caps 10/26/21 Allergies Allergy/AdvReac Type Severity Reaction Status Date / Time erythromycin base Allergy Unknown UNKNOWN Verified 08/08/21 10:37 [ERYTHROMYCIN BASE] latex [LATEX] Allergy Unknown UNKNOWN Verified 08/08/21 10:37 Adhesive tape Allergy Unknown Unknown Uncoded 08/08/21 10:37 Erthromycin Allergy Unknown Unknown Uncoded 08/08/21 10:37 Latex Allergy Unknown Unknown Uncoded 08/08/21 10:37 Review of Systems Review of Systems: Right upper quadrant pain Yes all other systems are reviewed and are negative PMFSH Social History Social History Alcohol intake: current Alcohol intake frequency: a few times a week Patient Tobacco Use Status: Former Tobacco user Use of substances other than those prescribed or required for medical reasons: No Advance Directives: No Advance Directives Information Provided: No Physical Exam ED Vital Signs: Vital Signs - 24 hr 10/26/21 11:04 10/26/21 11:44 10/26/21 13:26 Temperature 97.4 F Pulse Rate 55 43 L 53 Respiratory Rate 16 20 20 Blood Pressure 153/81 H 106/48 L 101/56 L Pulse Oximetry 98 99 100 Oxygen Delivery Method Room Air Room Air Room Air 10/26/21 15:22 Temperature 98.0 F Pulse Rate 43 L Respiratory Rate 18 Blood Pressure 105/39 L Pulse Oximetry 96 Oxygen Delivery Method Room Air BMI result Body Mass Index 30.9 Const General: cooperative, healthy appearing, comfortable, no acute distress, well developed, alert, awake and Physically active Orientation/consciousness: patient oriented x3 HENMA Head: Yes normal to inspection, Yes No palpable skull fracture present, Yes normocephalic, Yes atraumatic and No abrasion Eyes General: appearance normal, both eyes and all related structures Neck Neck: Yes normal visual inspection, Yes full ROM, Yes no lymphadenopathy, Yes no meningeal signs, Yes trachea midline, Yes supple, No anterior neck swelling and No tender Chest Chest palpation & inspection: normal inspection of the chest and normal palpation of entire chest wall Resp Effort & Inspection: normal respiratory effort and able to speak in complete sentences Auscultation: clear to auscultation bilaterally Cardio Jugular venous distension: no JVD Heart sounds: S1 normal heart sound present and S2 normal heart sound present GI Inspection: Yes normal to inspection and No abdominal wall ecchymosis Palpation (GI): Soft to palpation, not firm, Tenderness to palpation present (GI) in the RUQ, no guarding and not rigid General: Yes CVA tenderness (Right) and Yes no CVA tenderness Back/Spine/Pelvis Back: no CVA tenderness, CVA tenderness (Right) and No back tenderness Skin General skin exam: no rashes or lesions noted and elasticity normal Neuro General: patient oriented x3, gait normal, tone normal, no meningeal signs and CN's II-XI intact bilaterally Cranial nerves: Yes CN's II-XII intact bilaterally Extrem Other: Lower extremity negative for swelling, pain edema, or calf tenderness. General: Yes normal to inspection and Yes full ROM Psych Appearance: grossly normal, well kempt and not disheveled Course Course Course Narrative: History physical exam indicate possible cholecystitis. Will do labs in order ultrasound. Patient states no chance for . Labs hCG ordered. Pain me d ordered Reevaluation(s) Reevaluation #1: Patient labs came back normal. Negative for white blood cell count. Liver and lipase normal. Ultrasound came back negative for cholecystitis or fatty liver. Upon re-evaluation patient states she had pleurisy also pain on movement. Will add D-dimer to make sure no chance of PE. Upon re-evaluation she has no abdominal pain but still has flank CVA. Time: 13:07 Reevaluation #2: EKG showed sinus bradycardia at 38. Patient states history of bradycardia. On a monitor patient's heart rate between 70 and 40s. D-dimer negative. EKG negative STEMI. Waiting for troponin. Patient now having flank pain and right upper quadrant abdominal pain. PERC Score 0. Heart Score 0. Time: 13:59 Reevaluation #3: Patient had heart rate of 38 once on monitor. Spoke with Dr. Rosas of Cardiology he was informed of patient's history, physical exam, diagnostics, EKG, and vital signs on heart monitor. He states patient's heart rate was above 60 on ambulation patient is safe for discharge. Patient heart rate was 69 on ambulation. Patient will be discharged. He recommends outpatient echocardiogram and Holter monitor. Patient will be discharged after 2nd morphine dose. Abdominal CT scan came back normal. No need for admission. Labs are normal. Patient will be discharged 1 hour after receiving last morphine dose for returning abdominal pain. Patient to be discharged and informed to follow-up with primary care provider and for referral to social worker clinical and anesthesiology tech. Time: 17:16 Medical Decision Making MDM Narrative Medical decision making narrative: Abdominal pain. Lab Data Result diagrams: 10/26/21 11:10/26/21 11: Labs: Lab Results 10/26/21 10/26/21 10/26/21 Range/Units 11:26 11: 11:26 WBC 10.4 (4.8-10.8) X10*3/uL RBC 4.69 (4.20-5.50) X10*6/uL Hgb 13.5 (12.0-16.0) g/dl Hct 41.0 (37.0-47.0) % MCV 87.4 (80.0-98.0) fL MCH 28.8 (27.0-33.0) pg MCHC 32.9 (31.0-35.0) g/dl RDW 13.4 (11.0-16.0) % Plt Count 276 (160-400) X10*3/uL MPV 9.2 L (9.4-12.3) fL Immature Gran % (Auto) 0.4 (0.0-0.4) % Neut % (Auto) 57.2 (45-73) % Lymph % (Auto) 27.6 (20-40) % [place] % (Auto) 8.8 (2-11) % Eos % (Auto) 5.3 H (0-4) % Baso % (Auto) 0.7 (0-2) % Lymph # (Auto) 2.9 (1.2-4.9) X10*3/uL [place] # (Auto) 0.9 (0.1-1.2) X10*3/uL Eos # (Auto) 0.6 H (0.0-0.4) X10*3/uL Baso # (Auto) 0.1 (0.0-0.2) X10*3/uL Abs Immat Gran (auto) 0.04 H (0.00-0.03) X10*3/uL Absolute Neuts (auto) 6.0 (2.0-8.3) x10*3/uL Absolute Nucleated RBC 0.000 (0.0-0.012) X10*3/uL Nucleated RBC % (auto) 0.0 (0.0-0.2) /100WBC PT 12.7 (10.0-13.1) SEC INR 1.1 (0.9-1.1) APTT 33.1 (26.0-36.4) SEC D-Dimer High Sensitivty < 150 NG/ML Sodium 139 (135-145) mmol/L Potassium 4.4 (3.3-5.1) mmol/L Chloride 106 (96-108) mmol/L Carbon Dioxide 24 (22-29) mmol/L Anion Gap 13 (12-20) BUN 9 (9-16) mg/dL Creatinine 0.70 (0.5-1.4) mg/dL Estim Creat Clear Calc 119.3 Estimated GFR > 60 Random Glucose 104 (60-115) mg/dL Calcium 9.2 (8.4-10.2) mg/dL Total Bilirubin 0.8 (0.0-1.0) mg/dL Direct Bilirubin 0.3 (0.0-0.5) mg/dL AST 17 (5-31) U/L ALT 22 (0-31) U/L Alkaline Phosphatase 94 (39-117) U/L Troponin I High Sens (<3.5-17.0) ng/L Total Protein 6.6 (6.5-8.0) g/dL Albumin 4.3 (3.5-5.0) g/dL Lipase 7 L (8-78) U/L Beta HCG, Quant < 2 mIU/mL Urine Color Urine Appearance Urine pH (5.0-9.0) Ur Specific [place] (1.005-1.025) Urine Protein (Neg-Trace) mg/dL Urine Glucose (UA) (Negative) mg/dL Urine Ketones (Negative) mg/dL Urine Blood (Negative) Urine Nitrite (Negative) Ur Leukocyte Esterase (Negative) 10/26/21 10/26/21 Range/Units 13:29 13:43 WBC (4.8-10.8) X10*3/uL RBC (4.20-5.50) X10*6/uL Hgb (12.0-16.0) g/dl Hct (37.0-47.0) % MCV (80.0-98.0) fL MCH (27.0-33.0) pg MCHC (31.0-35.0) g/dl RDW (11.0-16.0) % Plt Count (160-400) X10*3/uL MPV (9.4-12.3) fL Immature Gran % (Auto) (0.0-0.4) % Neut % (Auto) (45-73) % Lymph % (Auto) (20-40) % [place] % (Auto) (2-11) % Eos % (Auto) (0-4) % Baso % (Auto) (0-2) % Lymph # (Auto) (1.2-4.9) X10*3/uL [place] # (Auto) (0.1-1.2) X10*3/uL Eos # (Auto) (0.0-0.4) X10*3/uL Baso # (Auto) (0.0-0.2) X10*3/uL Abs Immat Gran (auto) (0.00-0.03) X10*3/uL Absolute Neuts (auto) (2.0-8.3) x10*3/uL Absolute Nucleated RBC (0.0-0.012) X10*3/uL Nucleated RBC % (auto) (0.0-0.2) /100WBC PT (10.0-13.1) SEC INR (0.9-1.1) APTT (26.0-36.4) SEC D-Dimer High Sensitivty NG/ML Sodium (135-145) mmol/L Potassium (3.3-5.1) mmol/L Chloride (96-108) mmol/L Carbon Dioxide (22-29) mmol/L Anion Gap (12-20) BUN (9-16) mg/dL Creatinine (0.5-1.4) mg/dL Estim Creat Clear Calc Estimated GFR Random Glucose (60-115) mg/dL Calcium (8.4-10.2) mg/dL Total Bilirubin (0.0-1.0) mg/dL Direct Bilirubin (0.0-0.5) mg/dL AST (5-31) U/L ALT (0-31) U/L Alkaline Phosphatase (39-117) U/L Troponin I High Sens < 3.5 (<3.5-17.0) ng/L Total Protein (6.5-8.0) g/dL Albumin (3.5-5.0) g/dL Lipase (8-78) U/L Beta HCG, Quant mIU/mL Urine Color Yellow Urine Appearance Clear Urine pH 5.5 (5.0-9.0) Ur Specific [place] <= 1.005 (1.005-1.025) Urine Protein Negative (Neg-Trace) mg/dL Urine Glucose (UA) Negative (Negative) mg/dL Urine Ketones Negative (Negative) mg/dL Urine Blood Negative (Negative) Urine Nitrite Negative (Negative) Ur Leukocyte Esterase Negative (Negative) ECG Data Interpretation: Number sinus rhythm. Ventricular rate 38. Pr interval 146. QRS 86. QTC 399. Negative STEMI Discharge Plan Discharge Clinical Impression: Abdominal pain, Bradycardia, sinus Patient Disposition: Home, Self-Care Instructions: Bradycardia (ED), Abdominal Pain (ED) Additional Instructions: Your blood work, ultrasound, and CT scan came back normal. Please follow-up with the primary care provider for referral to social worker clinical for Holter monitoring and echocardiogram. Also you will need to be referred to gastroent erology for abdominal pain. Return to the ED immediately for chest pain, coughing up blood, shortness of breath, leg swelling, calf pain, severe abdominal pain, flank pain, hematuria, dysuria, weakness, or any other concerning symptoms. Stop taking tramadol while taking oxycodone. Prescriptions: New oxycodone 5 mg capsule 5 mg PO TID PRN (Reason: pain) 3 Days Qty: 9 0RF Rx Instructions: Partial Fill upon patient request. No Action naproxen 500 mg tablet 500 mg PO BID PRN (Reason: pain) Qty: 14 0RF cyclobenzaprine 10 mg tablet 10 mg PO Q8H Qty: 14 0RF [id number] [Fioricet] 50-300-40 mg capsule 1 cap PO Q8H PRN (Reason: pain) Qty: 14 0RF ondansetron 4 mg tablet,disintegrating 4 mg PO Q8H Qty: 14 0RF cephalexin 500 mg capsule 500 mg PO BID 10 Days Qty: 20 0RF naproxen 500 mg tablet 500 mg PO BID PRN (Reason: pain) 5 Days Qty: 10 0RF oxycodone 5 mg capsule 5 mg PO Q8H PRN (Reason: pain, severe) 3 Days Qty: 7 0RF Rx Instructions: Partial Fill upon patient request. Referrals: Glenny Dyson, JAZMIN, RESOLUTION ANALYST, ASSISTANCE COORDINATOR-C [Primary Care Provider] - (Abdominal pain. Sinus bradycardia. [place] social worker clinical recommend Holter monitor and echocardiogram.) Duane Rosas MD [Physician] - (Sinus bradycardia) Print Language: Syriac
[2021-10-26 11:36] LABS: MANUAL DIFF FLAG NO
[2021-10-26] MEDS: ondansetron HCL 4 MG/2 ML VIAL IVPUSH ×2 (11:37→14:52)
[2021-10-26] MEDS: Morphine Sulfate 4 MG/ML CARTRIDGE IVPUSH ×2 (11:37→17:32)
[2021-10-26] MEDS: 0.9 % Sodium Chloride 1,000 ML 999 ML IV (11:38)
[2021-10-26 11:42] LABS: Basophils Absolute Auto 0.1 X10*3/uL (0.0-0.2); Basophils Percent Auto 0.7 % (0-2); Eosinophils Absolute Auto 0.6 X10*3/uL (0.0-0.4); Eosinophils Percent Auto 5.3 % (0-4); Hemoglobin 13.5 g/dl (12.0-16.0); Imm Gran Abs Auto 0.04 X10*3/uL (0.00-0.03); Imm Gran Pct Auto 0.4 % (0.0-0.4); Lymphocytes Absolute Auto 2.9 X10*3/uL (1.2-4.9); Lymphocytes Percent Auto 27.6 % (20-40); Mean Corpuscular HGB Conc 32.9 g/dl (31.0-35.0); Mean Corpuscular Hemoglobin 28.8 pg (27.0-33.0); Mean Corpuscular Volume 87.4 fL (80.0-98.0); Mean Platelet Volume 9.2 fL (9.4-12.3); Monocytes Absolute Auto 0.9 X10*3/uL (0.1-1.2); Monocytes Percent Auto 8.8 % (2-11); Neutrophils Percent Auto 57.2 % (45-73); Platelet Count 276 X10*3/uL (160-400); Red Blood Count 4.69 X10*6/uL (4.20-5.50); Red Cell Distribution Width 13.4 % (11.0-16.0); White Blood Count 10.4 X10*3/uL (4.8-10.8)
[2021-10-26 11:44] VITALS: BP 106/48; PULSE 43; RESP 20; O2SAT 99
[2021-10-26 11:47] LABS: INTERNATIONAL NORM RATIO 1.1 (0.9-1.1); Prothrombin Time 12.7 SEC (10.0-13.1)
[2021-10-26 11:50] LABS: Partial Thromboplastin Time 33.1 SEC (26.0-36.4)
[2021-10-26 11:55] LABS: Alanine Aminotransferase 22 U/L (0-31); Albumin Level 4.3 g/dL (3.5-5.0); Alkaline Phosphatase 94 U/L (39-117); Anion Gap 13 (12-20); Aspartate Amino Transferase 17 U/L (5-31); Bilirubin Direct 0.3 mg/dL (0.0-0.5); Bilirubin Total 0.8 mg/dL (0.0-1.0); Blood Urea Nitrogen 9 mg/dL (9-16); Calcium 9.2 mg/dL (8.4-10.2); Carbon Dioxide 24 mmol/L (22-29); Chloride 106 mmol/L (96-108); Creatinine Clr Calc Pharmacy 119.3; Estimated Glomerular Filt Rate > 60; Glucose Random 104 mg/dL (60-115); Lipase 7 U/L (8-78); Potassium 4.4 mmol/L (3.3-5.1); Sodium 139 mmol/L (135-145); Total Protein 6.6 g/dL (6.5-8.0)
[2021-10-26 12:01] LABS: HCG Quantitative < 2 mIU/mL
--- NOTE | 2021-10-26 13:08 | ECG_ITS ---
Test Reason : ABD PAIN Blood Pressure : / mmHG Vent. Rate : 038 BPM Atrial Rate : 038 BPM P-R Int : 146 ms QRS Dur : 086 ms QT Int : 502 ms P-R-T Axes : -12 013 027 degrees QTc Int : 399 ms Marked sinus bradycardia Abnormal ECG No previous ECGs available Referred By: Fran Campbell Electronically Signed By:BROOKLYN STRAUSS
[2021-10-26 13:26] VITALS: BP 101/56; PULSE 53; RESP 20; O2SAT 100
--- NOTE | 2021-10-26 13:30 | PC.NURSE ---
pt reports that the pain is starting to come back in the right upper abd area that wraps slightly towards her back, nausea coming back as well but no vomiting since the arrival to the ed
[2021-10-26 13:33] LABS: D Dimer High Sensitivity < 150 NG/ML
[2021-10-26 13:40] LABS: Appearance Urine Clear; Color Urine Yellow; Glucose Urine UA Negative (Negative); Leukocyte Esterase Urine Negative (Negative); Nitrite Urine Negative (Negative); PH 5.5 (5.0-9.0); Specific Gravity - Urine <= 1.005 (1.005-1.025); Urine Blood Negative (Negative); Urine Ketones Negative (Negative); Urine Protein Negative (Neg-Trace)
[2021-10-26 14:17] LABS: Troponin-I High Sensitivity < 3.5 ng/L (<3.5-17.0)
[2021-10-26] MEDS: Cyclobenzaprine HCl 10 MG TABLET PO (14:52)
[2021-10-26] MEDS: Ketorolac Tromethamine 30 MG/ML VIAL IVPUSH (14:52)
[2021-10-26] MEDS: diphenhydrAMINE HCL 50 MG/ML VIAL 25 MG IVPUSH (15:05)
[2021-10-26] MEDS: methylPREDNISolone Sod Succ 125 MG/2 ML VIAL IVPUSH (15:05)
[2021-10-26] MEDS: iohexoL 350 MG/ML 100 ML INFUS..BTL IV (15:14)
[2021-10-26 15:22] VITALS: BP 105/39; PULSE 43; RESP 18; TEMP 36.7; O2SAT 96
== END 2021-10-26 19:38 | disposition home or self-care (01) ==
PROVIDERS: Physician Assistant; Emergency Provider Emergency Medicine; PCP Registered Nurse
DX: R00.1 Bradycardia, unspecified (principal); R10.9 Unspecified abdominal pain; Z87.891 Personal history of nicotine dependence; Z79.899 Other long term (current) drug therapy
CPT/HCPCS: 36415; 74177; 76705; 80053; 81003; 82248; 83690; 84484; 84702; 85025; 85379; 85610; 85730; 93005; 96361; 96374; 96375; 96376; 99285; J1200; J1885; J2270; J2405; J2930; Q9967

== ENCOUNTER 2021-11-10 11:24 | Outpatient (REF) | payer OTHER, SELFPAY ==
[2021-11-10 11:59] LABS: MANUAL DIFF FLAG NO
[2021-11-10 12:15] LABS: Basophils Absolute Auto 0.1 X10*3/uL (0.0-0.2); Basophils Percent Auto 0.8 % (0-2); Eosinophils Absolute Auto 0.2 X10*3/uL (0.0-0.4); Hematocrit 40.5 % (37.0-47.0); Hemoglobin 13.7 g/dl (12.0-16.0); Imm Gran Abs Auto 0.02 X10*3/uL (0.00-0.03); Imm Gran Pct Auto 0.3 % (0.0-0.4); Lymphocytes Absolute Auto 1.3 X10*3/uL (1.2-4.9); Lymphocytes Percent Auto 16.8 % (20-40); Mean Corpuscular HGB Conc 33.8 g/dl (31.0-35.0); Mean Corpuscular Volume 85.8 fL (80.0-98.0); Monocytes Absolute Auto 0.3 X10*3/uL (0.1-1.2); Monocytes Percent Auto 3.9 % (2-11); Neutrophils Absolute Auto 5.8 x10*3/uL (2.0-8.3); Neutrophils Percent Auto 75.2 % (45-73); Platelet Count 305 X10*3/uL (160-400); Red Blood Count 4.72 X10*6/uL (4.20-5.50); Red Cell Distribution Width 12.7 % (11.0-16.0); White Blood Count 7.7 X10*3/uL (4.8-10.8)
[2021-11-10 13:06] LABS: Alanine Aminotransferase 28 U/L (0-31); Albumin Level 4.4 g/dL (3.5-5.0); Alkaline Phosphatase 110 U/L (39-117); Anion Gap 15 (12-20); Aspartate Amino Transferase 25 U/L (5-31); Bilirubin Total 0.7 mg/dL (0.0-1.0); Blood Urea Nitrogen 7 mg/dL (9-16); Calcium 9.6 mg/dL (8.4-10.2); Carbon Dioxide 23 mmol/L (22-29); Chloride 105 mmol/L (96-108); Estimated Glomerular Filt Rate > 60; Gamma Glutamyl Transpeptidase 31 U/L (7-33); Glucose Random 104 mg/dL (60-115); Potassium 4.2 mmol/L (3.3-5.1); Sodium 139 mmol/L (135-145); Total Protein 6.7 g/dL (6.5-8.0)
[2021-11-11 06:22] LABS: HIV AB/AG Nonreactive (Nonreactive); HIV Num 1 0.07 S/CO (0.00-0.99)
[2021-11-11 22:02] LABS: EBV-VCA IgM Ab <36.00 U/mL
[2021-11-14 10:42] LABS: Other Ref Test - Misc SEE COMMENTS
[2021-11-14 10:46] LABS: Other Ref Test - Misc SEE COMMENTS
[2021-11-17 10:32] LABS: Transglutaminase Ab IgG <1.0 U/mL; Transglutaminase IgA <1.0 U/mL
== END 2021-11-10 11:25 | disposition home or self-care (01) ==
LOC: HO.LAB 11:24
PROVIDERS: PCP Registered Nurse; Visit Provider Registered Nurse
DX: Z11.4 Encounter for screening for human immunodeficiency virus [HIV] (principal); R05.9 Cough, unspecified; R10.13 Epigastric pain; L04.1 Acute lymphadenitis of trunk
CPT/HCPCS: 80053; 82977; 85025; 86364; 86663; 86664; 86665; 87086; 87147; 87389; 87476

== ENCOUNTER → 2021-12-13 08:58 | Outpatient (REF) | payer OTHER, SELFPAY ==
--- NOTE | 2021-12-13 09:00 | HM_ITS ---
Conclusion: 1. Patient was monitored for total period of 2 days and 22 hours 2. Baseline was normal sinus rhythm with average heart of 68 beats per minute 3. Frequent sinus bradycardia with 32.5% of time heart rate below 60 beats per minute 4. No significant bradycardia or pauses noted 5. Rare PACs noted 6. No patient reported events MTDD
--- NOTE | 2021-12-13 09:00 | CA_ITS ---
Acquisition Time: 2021-12-13 09:27:54 Total Exercise Time: 00:09:46 Test Indications: BRADYCARDIA Medications: SEE CHART Protocol: MITCH Max HR: 118 BPM 62% of Pred: 188 BPM Max BP: 110/070 mmHG Max Work Load: 11.3 METS Exercise stress test with exercise 9 min 46 sec of Mitch protocol, achieving 114 b/min 60% MPHR by my observation ( computer reading gives higher heart rate which is likely related to artificat) 11.3 METs, ( Baseline heart rate 50 b/min 27% MPHR), with report of a tightness across, up to 4/10 discomfort, and dizziness with request to stop, without arrythmia, with blunted heart rate and BP response to exercise, ( baseline BP 96/60, ajay to max 110/60), with nondiagnostic EKG for ischemia due to suboptimal heart rate. In recovery her symptoms resolved. Test reviewed with Dr Varela. Pt is having a holter monitor applied today. Referred By: Duane Rosas Overread By: AKANKSHA AGUDELO
== END ==
LOC: HO.CARD 08:58
PROVIDERS: PCP Registered Nurse; Visit Provider Internal Medicine Cardiovascular Disease
DX: R00.1 Bradycardia, unspecified (principal); J45.909 Unspecified asthma, uncomplicated
CPT/HCPCS: 93017; 93242

== ENCOUNTER → 2022-08-04 09:38 | Outpatient (BNVA) | payer OTHER, SELFPAY | PROVIDERS: PCP Registered Nurse; Visit Provider Nurse Practitioner Family | DX: M62.838 Other muscle spasm (principal); M25.551 Pain in right hip; M25.552 Pain in left hip; M54.2 Cervicalgia; M62.830 Muscle spasm of back; G89.4 Chronic pain syndrome | CPT/HCPCS: 99202 ==

== ENCOUNTER 2023-10-18 14:33 | Inpatient (IN) | payer OTHER, SELFPAY ==
--- NOTE | ~2023-10-18 | US_ITS ---
EXAMINATION: US ABDOMEN LIMITED CLINICAL INFORMATION: Right upper quadrant tenderness. COMPARISON: CT abdomen pelvis dated October 26, 2021. TECHNIQUE: Real-time imaging of the gallbladder and common bile duct was performed per request of ordering physician. FINDINGS: GALLBLADDER: The gallbladder is physiologically distended without evidence of stones, sludge, polyps, wall thickening or pericholecystic fluid. COMMON BILE DUCT: Normal in caliber measuring 0.5 cm in diameter. US/US abdomen limited IMPRESSION: Normal sonographic appearance of the gallbladder. Electronically signed by: Juan F Ashley DO 10/18/2023 07:55 PM EDT
--- NOTE | ~2023-10-18 | FL_ITS ---
EXAMINATION: XR FLUOROSCOPY UPPER GI WITH AIR CLINICAL INFORMATION: Nausea/vomiting COMPARISON: None TECHNIQUE: Fluoroscopic air contrast upper GI examination was performed utilizing standard techniques with thin and thick barium and effervescent granules. Numerous spot images were obtained. FINDINGS: Dual and single contrast images of the esophagus demonstrate normal caliber, contour, and mucosal pattern. No evidence of stricture, mass, or ulcerations identified. Esophageal peristalsis was normal. No evidence of hiatus hernia identified. No significant gastroesophageal reflux was seen during the course of the examination and on reflux views. Dual contrast and single contrast images of the stomach demonstrated a normal contour. There are multiple tiny foci of contrast pooling in the posterior wall of the fundus of the stomach. No masses are seen. Contrast freely passed into the gastric antrum and duodenal bulb without delay. Single and air-contrast images of the duodenal bulb demonstrate no abnormality. The duodenal sweep has a normal appearance, course, and mucosal fold appearance. The imaged proximal jejunum has a normal fold pattern and caliber. FLUOROSCOPY TIME: 4 minutes 16 seconds Number of Spot Images: 11 Number of Cine: 12 DOSE AREA PRODUCT: 3224 uGy-m2 (microgray-meter squared) FL/FL upper GI series IMPRESSION: 1. Multiple tiny foci of contrast pooling in the posterior wall the fundus the stomach that may represent small superficial aphthous ulcers. Recommend correlation with EGD. This procedure was performed by Rolando Gould PA-C, and supervised by Dr. Awad Electronically signed by: Didier Awad MD 10/19/2023 04:03 PM EDT
--- NOTE | ~2023-10-18 | NM_ITS ---
EXAMINATION: BILIARY TRACT IMAGING STUDY WITH CCK CLINICAL INFORMATION: Right upper quadrant abdominal pain. COMPARISON: CT of the abdomen and pelvis done on 10/18/2023. TECHNIQUE: Serial gamma scintillation camera images were obtained over the abdomen for a total observation period of 60 minutes following the intravenous administration of 5 mCi Tc-99m mebrofenin. The radiotracer was injected through the right hand superficial vein without complications. FINDINGS: There is good concentration of activity in the liver by 5 minutes post injection. Biliary activity is visualized by 10 minutes. The gallbladder is well visualized by 25 minutes. Small bowel is well visualized by 70 minutes. At 60 minutes post radiopharmaceutical injection, a 30-minute infusion of 1.6 micrograms Sincalide was then begun and an additional 40 minutes of images were obtained. There is rapid emptying of the gallbladder. By the end of the study there is good clearance of activity from the liver and visualization of diffuse small bowel activity. The calculated gallbladder ejection fraction is 88% (Normal range of gallbladder ejection fraction is between 35-80%; GBEF <35% is considered biliary hypokinesia and >80% is considered biliary hyperkinesia; Ref. #1-Clinical Journal of Gastroenterology (2020) 14:7942-1375; Ref.#2-[email or web address]). NM/NM hepatobiliary w pharm IMPRESSION: Visualization of the gallbladder is evidence of a patent cystic duct and strong evidence against the diagnosis of acute cholecystitis. The common bile duct is patent. Gallbladder emptying and ejection fraction are abnormal. Liver function appears normal. Electronically signed by: Moises Curran MD 10/20/2023 11:55 AM EDT Workstation: [id number]
--- NOTE | ~2023-10-18 | CT_ITS ---
EXAMINATION: CT ABDOMEN AND PELVIS WITH CONTRAST CLINICAL INFORMATION: Right upper quadrant pain. COMPARISON: Abdominal ultrasound dated 10/18/2023. CT abdomen and pelvis dated 10/26/2021. TECHNIQUE: Multidetector volumetric images were obtained from the superior aspect of the liver through the pubic symphysis following administration 85 mL of Omnipaque 350 intravenous contrast. Sagittal and coronal reformatted images were obtained on the technologist's workstation. Oral contrast: No This CT examination was performed using dose optimization techniques as appropriate, variously including the following: *Automated exposure control *Adjustment of mA and/or kV according to patient size (this includes techniques or standardized protocols for targeted exams where dose is matched to indication/reason for exam; i.e. extremities or head) *Use of iterative reconstruction technique DLP: 703 mGy-cm FINDINGS: LUNG BASES: The visualized lung bases are unremarkable. LIVER, GALLBLADDER, AND BILIARY TREE: The liver is normal in size, shape, and attenuation. No focal hepatic lesion or biliary ductal dilatation is present. The gallbladder is unremarkable with no evidence of radiopaque gallstones, gallbladder wall thickening, or obvious pericholecystic inflammatory changes. PANCREAS: Unremarkable. SPLEEN: Unremarkable. ADRENAL GLANDS: Unremarkable. KIDNEYS AND URETERS: The kidneys are normal in size, shape, and attenuation. No hydronephrosis, hydroureter, or calculi seen. No perinephric stranding. BLADDER: Unremarkable. GASTROINTESTINAL TRACT: The small and large bowel are normal in caliber. There is no pericolonic inflammatory stranding. The appendix is not identified. Correlate with surgical history. ABDOMINAL WALL: No significant hernia is appreciated. LYMPH NODES: Again seen are numerous right lower quadrant lymph nodes, measuring up to 1.1 cm in short axis. VASCULAR: Unremarkable. PELVIC VISCERA: The uterus and adnexal structures appear grossly normal. OSSEOUS STRUCTURES: No acute osseous abnormality. CT/CT abdomen pelvis w IV con IMPRESSION: No acute intra-abdominal/intrapelvic abnormality. The appendix appears to be surgically absent. Correlate with surgical history. Again seen are numerous right lower quadrant lymph nodes, measuring up to 1.1 cm in short axis. The etiology of these lymph nodes remains uncertain. Mesenteric adenitis cannot be excluded. Fleischner guidelines were followed. Electronically signed by: Juan F Ashley DO 10/18/2023 10:31 PM EDT RP
--- NOTE | ~2023-10-18 | XR_ITS ---
EXAMINATION: XR CHEST CLINICAL INFORMATION: Left-sided back pain. Fever. COMPARISON: Chest radiograph dated January 14, 2016. TECHNIQUE: 2 views of the chest were obtained. FINDINGS: The heart is normal in size. The lungs are clear. Pleural spaces are clear. No pneumothorax. No acute osseous abnormality. XR/XR chest 2V IMPRESSION: No acute cardiopulmonary disease. Electronically signed by: Juan F Ashley DO 10/18/2023 07:56 PM EDT
[2023-10-18 14:36] VITALS: BP 111/62; PULSE 84; RESP 20; TEMP 37.1; O2SAT 99; BMI 29.9
--- NOTE | 2023-10-18 14:37 | ED.GENADULT ---
HPI - General Adult General Chief complaint: Abdominal Pain Stated complaint: back unry-tsmdvbrb-gealp stool Time Seen by Provider: 10/18/23 17:43 Source: patient Mode of arrival: ambulatory Limitations: no limitations History of Present Illness ED Provider: geronimo CORLEY narrative: Patient is a 33-year-old female with history of Behcet syndrome, Kings Danlos syndrome, fibromyalgia, asthma, appendectomy presenting to emergency department with complaint of 3 weeks of right upper quadrant abdominal pain worse after eating as well as left upper back pain since yesterday. Reporting white, greasy stools. Reporting nausea and vomiting at least 3 episodes daily for the past 3 weeks. Reports subjective fevers. Complains bladder spasms but states she has interstitial cystitis and this is her baseline. Denies hematuria, dysuria, urinary urgency. Denies hematochezia, melena, hematemesis. MD complaint: RUQ and back pain Onset (ago): week(s) Exacerbating factors: eating Associated symptoms: fever/chills and nausea/vomiting Related Data Home Medications ?Medication ?Instructions ?Recorded ?Confirmed cyclobenzaprine 5 mg tablet 5 mg PO BEDTIME PRN 08/04/22 duloxetine 30 mg capsule,delayed 30 mg PO BID 08/04/22 release escitalopram oxalate 10 mg tablet 10 mg PO DAILY 08/04/22 lorazepam 0.5 mg tablet 0.5 mg PO BID PRN 08/04/22 oxycodone-acetaminophen 5 mg-325 1 tab PO BID PRN 08/04/22 mg tablet prazosin 1 mg capsule 1 mg PO BEDTIME 08/04/22 propranolol 10 mg tablet 10 mg PO DAILY 08/04/22 Previous Rx's ?Medication ?Instructions ?Recorded ieddfurkit-luqaeibxiqurt-lsemwtfu 1 cap PO Q8H PRN pain #14 caps 08/08/21 50 mg-300 mg-40 mg capsule (Fioricet) naproxen 500 mg tablet 500 mg PO BID PRN pain #14 tabs 08/08/21 baclofen 20 mg tablet 20 mg PO TID muscle spasticity 30 09/07/22 days #90 tabs Allergies Allergy/AdvReac Type Severity Reaction Status Date / Time erythromycin base Allergy Unknown UNKNOWN Verified 10/18/23 14:40 [ERYTHROMYCIN BASE] latex [LATEX] Allergy Unknown UNKNOWN Verified 10/18/23 14:40 Adhesive tape Allergy Unknown Unknown Uncoded 10/18/23 14:40 Erthromycin Allergy Unknown Unknown Uncoded 10/18/23 14:40 Latex Allergy Unknown Unknown Uncoded 10/18/23 14:40 Review of Systems Review of Systems: As per HPI. Yes all other systems are reviewed and are negative Constitutional: Constitutional: Reports as per HPI [facility] Past Medical History Medical History (Updated 10/18/23 @ 20:57 by Kristi Tubbs NP) Other specified disorders of bladder 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] Personal history of malignant melanoma of skin Muscle spasm of back Chronic pain syndrome Generalized anxiety disorder Major depressive disorder, single episode, in full remission Social History Social History (System 12/12/22 @ 13:37 by Sharona Owens) Alcohol intake: current Alcohol intake frequency: a few times a week Patient Tobacco Use Status: Former Tobacco user Substance Use Type: Other and Caffiene Advance Directives: No Advance Directives Information Provided: Yes Do you have a plan to hurt others: No Plan Physical Exam ED Vital Signs: Vital Signs - 24 hr 10/18/23 14:36 10/18/23 17:34 10/18/23 20:24 Temperature 98.7 F 97.5 F 97.6 F Pulse Rate 84 71 69 Respiratory Rate 20 19 20 Blood Pressure 111/62 114/70 114/73 Pulse Oximetry 99 100 99 Oxygen Delivery Method Room Air Room Air Room Air BMI result Body Mass Index 29.9 Vital signs have been reviewed and appear to be correct. Blood pressure normal. Heart rate normal. Respiratory rate normal. Temperature normal. Oxygen saturation normal. Const General: cooperative, healthy appearing and no acute distress Orientation/consciousness: oriented to person, oriented to place, oriented to time and patient oriented x3 Limitations: no limitations [facility] Head: Yes normocephalic and Yes atraumatic Ears: external ears normal General nose exam: Normal external nose present Face and sinus: Yes face symmetric Mouth: oropharynx normal and moist mucous membranes Throat: Yes uvula midline Eyes Pupils: Equal, round and reactive pupils present Neck Neck: Yes normal visual inspection and Yes supple Resp Effort & Inspection: normal respiratory effort and able to speak in complete sentences Auscultation: clear to auscultation bilaterally Cardio Rate: regular rate Rhythm: regular rhythm Heart sounds: S1 normal heart sound present and S2 normal heart sound present GI Palpation (GI): Soft to palpation, Tenderness to palpation present (GI) in the RUQ, no guarding and No Rebound tenderness present Auscultation: normoactive bowel sounds General: Yes no CVA tenderness Back/Spine/Pelvis Back: no CVA tenderness Thoracic/Lumbar Spine: thoracic and lumbar spine normal to inspection, pain with thoraco-lumbar ROM, paraspinal muscle tenderness on the left in the mid thoracic, No thoracic spinal tenderness and No lumbar spinal tenderness Skin General skin exam: elasticity normal and turgor normal Neuro General: oriented to person, oriented to place, oriented to time, patient oriented x3, moves all extremities, no focal motor deficits and CN's II-XI intact bilaterally Cranial nerves: Yes Equal, round and reactive pupils present Cognition (Neuro): normal cognition Extrem General: Yes full ROM, Yes no pedal edema and Yes no calf tenderness Psych Mental Status: mental status grossly normal Affect: normal affect Thought process: Normal thought process present Course Course Course Narrative: This is a Rapid Medical Examination (RME) performed by [place] PA-C in triage. Full HPI, ROS, assessment and treatment plan per primary provider in the Main ED. 33 yo female with history of chronic pain syndrome, asthma, who presents to the ER for evaluation of 3 weeks of intermittent RUQ pain along with greasy, white stools and new onset of severe 9/10 left flank pain that started yesterday. She reports vomiting for the 3 weeks and post prandial abdominal pain. Decreased UOP but no other urinary symptoms. LMP 1 month ago, denies chance of . Appears uncomfortable in triage. RUQ tenderness and bilateral CVA tenderness on exam. No improvement with tylenol and ibuprofen today. Plan: Labs, UA, Upreg Medications Administered Discontinued Medications Generic Name Dose Route Start Last Admin Trade Name Freq PRN Reason Stop Dose Admin Hydromorphone HCl 1 mg 10/18/23 20:08 10/18/23 20:24 Hydromorphone Hcl 1 Mg/Ml Syringe IVPUSH 10/18/23 20:09 1 mg ONCE ONE Administration Protocol Sodium Chloride 1,000 mls @ 999 mls/hr 10/18/23 18:00 10/18/23 20:24 Ns IV 10/18/23 19:00 Infused .Q1H1M XIMENA Infusion Morphine Sulfate 4 mg 10/18/23 17:55 10/18/23 18:26 Morphine Sulfate 4 Mg/Ml Cartridge IVPUSH 10/18/23 17:56 4 mg ONCE ONE Administration Protocol Ondansetron HCl 4 mg 10/18/23 17:55 10/18/23 18:26 Ondansetron Hcl 4 Mg/2 Ml Vial IVPUSH 10/18/23 17:56 4 mg ONCE ONE Administration Medical Decision Making Medical Decision Making [facility] Narrative: Patient is a 33-year-old female with history of Behcet syndrome, Kings Danlos syndrome, fibromyalgia, asthma, appendectomy presenting to emergency department with complaint of 3 weeks of right upper quadrant abdominal pain worse after eating as well as left upper back pain since yesterday. On exam patient is awake, A+Ox3, VS WNL, afebrile, normal neurological exam without focal deficits, physical exam findings as above. Given reported symptoms and physical exam findings, initial differential includes biliary colic, cholecystitis, cholangitis, pancreatitis, UTI/pyelonephritis, muscle strain, pneumonia.. Labs notable for no leukocytosis, no anemia, no evidence of PRIMO, no significant electrolyte abnormalities, ALT of 62, normal alk-phos, lipase. No evidence of infection on urinalysis. Urine drug screen positive for methadone and THC only. COVID negative. X-ray chest notable for no evidence of pneumonia. RUQ ultrasound notable for normal gallbladder, no evidence of cholecystitis, stones, sludge, normal CBD. My interpretation is in agreement with the radiologist's interpretation. Results discussed with patient who continues to complain of severe pain. States she feels she is unable to return home due to her severe pain. IV dilaudid ordered. Case discussed with Dr. Apple to admit for intratable pain. He recommends adding CT A/P. Differential Diagnosis Differential Diagnoses: The differential diagnosis associated with the presentation includes as per [facility] Admission/Observation Consideration of admission/observation: Escalation of care including admission/observation considered Consult Healthcare Provider Management of the patient was discussed with: Hospitalist (Dr. Apple) Lab Data [facility] Lab Attestation statement: I reviewed the patient's lab results. as per [facility] 10/18/23 14:56 10/18/23 14:56 Labs: Lab Results 10/18/23 Range/Units 14:56 WBC 8.6 (4.8-10.8) X10*3/uL RBC 4.86 (4.20-5.50) X10*6/uL Hgb 14.2 (12.0-16.0) g/dl Hct 41.6 (37.0-47.0) % MCV 85.6 (80.0-98.0) fL MCH 29.2 (27.0-33.0) pg MCHC 34.1 (31.0-35.0) g/dl RDW 12.6 (11.0-16.0) % Plt Count 262 (160-400) X10*3/uL MPV 9.4 (9.4-12.3) fL Immature Gran % (Auto) 0.2 (0.0-0.4) % Neut % (Auto) 44.4 L (45-73) % Lymph % (Auto) 37.4 (20-40) % [place] % (Auto) 6.7 (2-11) % Eos % (Auto) 10.4 H (0-4) % Baso % (Auto) 0.9 (0-2) % Lymph # (Auto) 3.2 (1.2-4.9) X10*3/uL [place] # (Auto) 0.6 (0.1-1.2) X10*3/uL Eos # (Auto) 0.9 H (0.0-0.4) X10*3/uL Baso # (Auto) 0.1 (0.0-0.2) X10*3/uL Abs Immat Gran (auto) 0.02 (0.00-0.03) X10*3/uL Absolute Neuts (auto) 3.8 (2.0-8.3) x10*3/uL Absolute Nucleated RBC 0.000 (0.0-0.012) X10*3/uL Nucleated RBC % (auto) 0.0 (0.0-0.2) /100WBC Sodium 142 (135-145) mmol/L Potassium 3.6 (3.3-5.1) mmol/L Chloride 108 (96-108) mmol/L Carbon Dioxide 26 (22-29) mmol/L Anion Gap 12 (12-20) BUN 6 L (9-16) mg/dL Creatinine 0.76 (0.5-1.4) mg/dL Estim Creat Clear Calc 106.0 Estimated GFR > 60 Random Glucose 83 (60-115) mg/dL Calcium 9.7 (8.4-10.2) mg/dL Magnesium 1.8 (1.6-2.6) mg/dL Total Bilirubin 0.4 (0.0-1.0) mg/dL Direct Bilirubin 0.1 (0.0-0.5) mg/dL AST 21 (5-31) U/L ALT 62 H (0-31) U/L Alkaline Phosphatase 74 (39-117) U/L Total Protein 6.6 (6.5-8.0) g/dL Albumin 4.3 (3.5-5.0) g/dL Lipase 30 (8-78) U/L Urine Color Yellow Urine Appearance Clear Urine pH 6.0 (5.0-9.0) Ur Specific Farley 1.010 (1.005-1.025) Urine Protein Negative (Neg-Trace) mg/dL Urine Glucose (UA) Negative (Negative) mg/dL Urine Ketones Negative (Negative) mg/dL Urine Blood Negative (Negative) Urine Nitrite Negative (Negative) Ur Leukocyte Esterase Negative (Negative) Urine Test NEGATIVE (NEGATIVE) Urine Opiates Screen Not Detected (Not Detect) Ur Buprenorphine Scrn Not Detected (Not Detect) ng/mL Ur Oxycodone Screen Not Detected (Not Detect) ng/mL Urine Methadone Screen Positive H (Not Detect) ng/mL Urine Fentanyl Screen Not Detected (Not Detect) Ur Barbiturates Screen Not Detected (Not Detect) Ur Phencyclidine Scrn Not Detected (Not Detect) Ur Amphetamines Screen Not Detected (Not Detect) U Benzodiazepines Scrn Not Detected (Not Detect) Urine Cocaine Screen Not Detected (Not Detect) U Marijuana (THC) Screen POSITIVE H (Not Detect) Ethyl Alcohol < 10 mg/dL COVID-19 (SREEDHAR) Negative (Negative) COVID-19 Clin Com See Note Independent Interpretation I performed an independent interpretation of an: Ultrasound Interpretation: U/S notable for normal gallbladder and CBD Chest xray is without evidence of pneumonia. Radiology Impression Discussion of test interpretation with radiology: I have reviewed the radiologist's reading. Radiologist Impression: FINDINGS: GALLBLADDER: The gallbladder is physiologically distended without evidence of stones, sludge, polyps, wall thickening or pericholecystic fluid. COMMON BILE DUCT: Normal in caliber measuring 0.5 cm in diameter. US/US abdomen limited IMPRESSION: Normal sonographic appearance of the gallbladder. XR/XR chest 2V IMPRESSION: No acute cardiopulmonary disease. External Record Review External record reviewed: Inpatient record, Office record and Outpatient record Discharge Plan Discharge Print Language: Spanish
[2023-10-18 15:07] LABS: MANUAL DIFF FLAG NO
[2023-10-18 15:09] LABS: Basophils Absolute Auto 0.1 X10*3/uL (0.0-0.2); Basophils Percent Auto 0.9 % (0-2); Eosinophils Absolute Auto 0.9 X10*3/uL (0.0-0.4); Eosinophils Percent Auto 10.4 % (0-4); Hematocrit 41.6 % (37.0-47.0); Hemoglobin 14.2 g/dl (12.0-16.0); Imm Gran Abs Auto 0.02 X10*3/uL (0.00-0.03); Imm Gran Pct Auto 0.2 % (0.0-0.4); Lymphocytes Absolute Auto 3.2 X10*3/uL (1.2-4.9); Lymphocytes Percent Auto 37.4 % (20-40); Mean Corpuscular HGB Conc 34.1 g/dl (31.0-35.0); Mean Corpuscular Hemoglobin 29.2 pg (27.0-33.0); Mean Corpuscular Volume 85.6 fL (80.0-98.0); Mean Platelet Volume 9.4 fL (9.4-12.3); Monocytes Absolute Auto 0.6 X10*3/uL (0.1-1.2); Monocytes Percent Auto 6.7 % (2-11); Neutrophils Absolute Auto 3.8 x10*3/uL (2.0-8.3); Neutrophils Percent Auto 44.4 % (45-73); Platelet Count 262 X10*3/uL (160-400); Red Blood Count 4.86 X10*6/uL (4.20-5.50); Red Cell Distribution Width 12.6 % (11.0-16.0); White Blood Count 8.6 X10*3/uL (4.8-10.8)
[2023-10-18 15:15] LABS: Appearance Urine Clear; Color Urine Yellow; Glucose Urine UA Negative (Negative); Leukocyte Esterase Urine Negative (Negative); Nitrite Urine Negative (Negative); Urine Blood Negative (Negative); Urine Ketones Negative (Negative); Urine Protein Negative (Neg-Trace)
[2023-10-18 15:17] LABS: UPreg QC Valid YES; Urine Pregnancy NEGATIVE (NEGATIVE)
[2023-10-18 15:25] LABS: COVID-19 Test Negative (Negative); IDNOW Serial# 08D9AD1C
[2023-10-18 15:28] LABS: Alanine Aminotransferase 62 U/L (0-31); Albumin Level 4.3 g/dL (3.5-5.0); Alkaline Phosphatase 74 U/L (39-117); Anion Gap 12 (12-20); Aspartate Amino Transferase 21 U/L (5-31); Bilirubin Direct 0.1 mg/dL (0.0-0.5); Bilirubin Total 0.4 mg/dL (0.0-1.0); Blood Urea Nitrogen 6 mg/dL (9-16); Calcium 9.7 mg/dL (8.4-10.2); Carbon Dioxide 26 mmol/L (22-29); Chloride 108 mmol/L (96-108); Estimated Glomerular Filt Rate > 60; Ethanol < 10 mg/dL; Glucose Random 83 mg/dL (60-115); Lipase 30 U/L (8-78); Magnesium 1.8 mg/dL (1.6-2.6); Potassium 3.6 mmol/L (3.3-5.1); Sodium 142 mmol/L (135-145); Total Protein 6.6 g/dL (6.5-8.0)
[2023-10-18 16:39] LABS: Amphetamine Screen Urine Not Detected (Not Detect); Barbiturates, Urine Not Detected (Not Detect); Benzodiazepines Screen Urine Not Detected (Not Detect); Buprenorphine Scr Not Detected (Not Detect); Cannabinoid Screen Urine POSITIVE (Not Detect); Cocaine Screen Urine Not Detected (Not Detect); Fentanyl, urine Not Detected (Not Detect); Methadone Screen, Urine Positive (Not Detect); Opiate Screen Urine Not Detected (Not Detect); Oxycodone Screen Urine Not Detected (Not Detect); Phencyclidine Screen Urine Not Detected (Not Detect)
[2023-10-18 17:34] VITALS: BP 114/70; PULSE 71; RESP 19; TEMP 36.4; O2SAT 100
--- OUTSIDE RECORDS SUMMARY | 2023-10-18 17:55 | XMS_ITS | Continuity of Care Document ---
Author Organization [facility] Address [address] [place] [address]- Care Team Providers Care Pizzamaker Name Role Phone Kiel AMADO, Glenny Ayon Primary Care Physician [place] [facility] [place]s): 01/26/22 - 02/25/22 [facility] [address] [place] [id number] Attending Physician: Arya Guido Admitting Physician: AdmtrArya Referring Physician: Admtr, Ar8 Allergies, Adverse Reactions, Alerts Substance Reaction Severity Status erythromycin Active Adhesive Bandage Active Contrast Dye Hives Hives Active Latex Adhesive Active Medications Acetaminophen = 1,000 mg, 3 times a day, PRN Pain , Mild, 0 Refills, Maintenance, 10/01/19 17:40:00 EDT Start Date: 10/01/19 Status: Ordered acetaminophen/butalbital/caffeine 325 mg-50 mg-40 mg oral tablet 0 Refills, Maintenance, 11/21/17 7:52:18 EDT Start Date: 11/21/17 Status: Ordered estradiol-norethindrone 0.5 mg-0.1 mg oral tablet 1 tablet, By Mouth, Daily, # 28 tablet, 0 Refills, Maintenance, 10/01/19 17:40:00 EDT, Tablet Start Date: 10/01/19 Status: Ordered gabapentin 300 mg oral capsule 300 mg, 1, capsule, By Mouth, 2 times a day, PRN, Refills 0, Maintenance, Other, 10/01/19 17:40:00 EDT Start Date: 10/01/19 Status: Ordered LORazepam 1 mg oral tablet 1 tablet = 1 mg, By Mouth, 2 times a day, PRN as needed for anxiety, 0 Refills, Maintenance, 10/01/19 17:41:00 EDT, Tablet Start Date: 10/01/19 Status: Ordered PNV Plus oral tablet 0 Refills, Maintenance, 11/21/17 7:52:42 EDT Start Date: 11/21/17 Status: Ordered ProAir HFA 90 mcg/inh inhalation aerosol with adapter Refills 0, Maintenance, 11/21/17 7:52:54 EDT Start Date: 11/21/17 Status: Ordered tramadol 100 mg oral tablet, extended release 1 tablet = 100 mg, By Mouth, 3 times a day, 0 Refills, Maintenance, 01/26/22 9:24:00 EST, Partial fill upon patient request if the prescription is for a schedule II opioid drug. Start Date: 01/26/22 Status: Ordered Problem List Condition Confirmation Course Effective Dates Status Health St atus Informant Asthma Confirmed Active Gestational diabetes mellitus, antepartum Confirmed Active Migraine Confirmed Active Obese class I Confirmed Active Social History Social History Type Response Smoking Status Former smoker, quit more than 30 days ago; Other: quit 2015; entered on: 01/26/22 Sex Note * Event Display: Non Lab Results Authored Date: Patient Care team information Care Team Personnel Name: Julianna Schreiber LPN Position: [facility] OB RN Member Role: Primary Care Nurse Name: Glenny Dyson NP Position: [facility] Outreach Member Role: PCP Address: Address: [address] [place] [phone]- Care Team Related Persons Name: DANNY REYNOLDS Address: [address] [place] [address] Name: JORGE REYNOLDS Address: [place] Address: home [address] [place] [address] [place] Address: [facility] 0
--- OUTSIDE RECORDS SUMMARY | 2023-10-18 17:55 | XMS_ITS | Continuity of Care Document ---
Author Organization [facility] ter Address [address] [place] [id number]- Care Team Providers Care Metal Milling Machine Operator Name Role Phone Kiel AMADO, Glenny Ayon Primary Care Physician Encounter [facility] [place] Date(s): 03/28/22 - 08/06/[address] [id number] Attending Physician: Tex Varela MD Admitting Physician: Tex Varela MD Referring Physician: Tex Varela MD Allergies, Adverse Reactions, Alerts Substance Reaction Severity Status erythromycin Active Adhesive Bandage Active Contrast Dye Hives Hives Active Latex Adhesive Active Medications Acetaminophen = 1,000 mg, 3 times a day, PRN Pain , Mild, 0 Refills, Maintenance, 10/01/19 17:40:00 EDT Start Date: 10/01/19 Status: Ordered acetaminophen/butalbital/caffeine 325 mg-50 mg-40 mg oral tablet 0 Refills, Maintenance, 11/21/17 7:52:18 EDT Start Date: 11/21/17 Status: Ordered Aller-Dong 10 mg oral tablet See Instructions, take 1 tab 12 hours prior to exam, and then again at 2 hours prior to exam, # 2 tablet, 0 Refills, Maintenance, 03/06/22 14:34:00 [facility], [facility] #[id number], Partial fill uponpatient request if the prescription is for a schedu... Start Date: 03/06/22 Status: Ordered estradiol-norethindrone 0.5 mg-0.1 mg oral [...] EDT, Tablet Start Date: 10/01/19 Status: Ordered Medrol 16 mg oral tablet See Instructions, Take 2 tablets [address] scan then again [address] scan., # 4 tablet, 0 Refills, Maintenance, 03/06/22 14:34:00 EST, [facility] #[id number], Partial fill upon patient request if the prescription is for a joaquin... Start Date: 03/06/22 Status: Ordered PNV Plus oral tablet 0 [...] Other: quit 2015; entered on: 01/26/22 Sex Patient Care team information Care Team Personnel Name: Julianna Schreiber LPN Position: [facility] OB RN Member Role: Primary Care Nurse Name: Pamela Dorsey MA Position: [facility] Onco RN Member Role: Primary Care Nurse Name: Glenny Dyson NP Position: [facility] Outreach Member Role: PCP Address: Address: [address] [place] [id number] Care Team Related Persons Name: DANNY REYNOLDS Address: [address] [place] [address] Name: JORGE REYNOLDS Address: [employer] Address: [address] [place] [address] Address: temporary 0
--- OUTSIDE RECORDS SUMMARY | 2023-10-18 17:55 | XMS_ITS | Continuity of Care Document ---
Author Organization [facility] Address [address] [place] [address]- Care Team Providers Care Systems Trainer Name Role Phone Kiel AMADO, Glenny Ayon Primary Care Physician Encounter [facility] [place] Date(s): 02/03/22 - 03/09/22 [facility] [address] [place] [id number] Attending Physician: Leon Martinez MD Admitting Physician: Leon Martinez MD Referring Physician: Glenny Dyson NP Allergies, Adverse Reactions, Alerts Substance Reaction Severity [...] 2 tablet, 0 Refills, Maintenance, 03/06/22 14:34:00 [id number], Partial fill uponpatient request if the prescription [...] tablet, 0 Refills, Maintenance, 03/06/22 14:34:00 EST, [facility] #[id number], Partial fill upon patient request if the [...] Team Personnel Name: Julianna Schreiber LPN Position: [facility] OB RN Member Role: Primary Care Nurse Name: Glenny Dyson NP Position: [facility] Outreach Member Role: PCP Address: Address: [address] [place] [phone]- Care Team Related Persons Name: DANNY REYNOLDS Address: [address] [place] [address] Name: JORGE REYNOLDS Address: [employer] Address: home [address] [facility] [place] [address] Address: temporary 0
--- OUTSIDE RECORDS SUMMARY | 2023-10-18 17:55 | XMS_ITS | Continuity of Care Document ---
Author Organization [facility] Address [address] [place] [address]- Care Team Providers Care Assistant Produce Manager Name Role Phone Kiel MAADO, Glenny Ayon Primary Care Physician [place] [facility] [place] [facility] [address], [place] [address] Attending Physician: Arya Guido Admitting Physician: AdmtrArya Referring Physician: Admtr, ArElis Allergies, Adverse Reactions, Alerts Substance Reaction Severity [...] 2 tablet, 0 Refills, Maintenance, 03/06/22 14:34:00 [facility], [facility] #[id number], Partial fill uponpatient request if the prescription [...] tablet, 0 Refills, Maintenance, 03/06/22 14:34:00 EST, [facility] #[id number], Partial fill upon patient request if the [...] Team Personnel Name: Julianna Schreiber LPN Position: [facility] OB RN Member Role: Primary Care Nurse Name: Pamela Dorsey MA Position: [facility] Onco RN Member Role: Primary Care Nurse Name: Glenny Dyson NP Position: [facility] Outreach Member Role: PCP Address: Address: [address] [place] [phone]- Care Team Related Persons Name: DANNY REYNOLDS Address: [address] [place] [address] Name: JORGE REYNOLDS Address: [employer] Address: [address] [place] [address] Address: temporary 0
--- OUTSIDE RECORDS SUMMARY | 2023-10-18 17:55 | XMS_ITS | Continuity of Care Document ---
Author Organization [facility] Address [address] [place] [address]- Care Team Providers Care Esl Tutor Name Role Phone Nilda Carty Primary Care Physician Encounter [facility] [place] Date(s): 09/23/19 - 10/23/19 [facility] [address] [place] [address] [facility] Attending Physician: Hay, Arya Admitting Physician: AdmtrArya Referring Physician: Admtr, Ar8 [...] 7:52:54 EDT Start Date: 11/21/17 Status: Ordered Problem List Condition Effective Dates Status Health Status Inform ant Asthma(Confirmed) Active Gestational diabetes mellitu s, antepartum(Confirmed) Active Migraine(Confirmed) Active
--- OUTSIDE RECORDS SUMMARY | 2023-10-18 17:55 | XMS_ITS | Continuity of Care Document ---
Author Organization [facility] Address [address] [place] [address]- Care Team Providers Care Senior Ios Software Engineer Name Role Phone Kiel AMADO, Glenny Ayon Primary Care Physician Encounter [facility] [place] Date(s): 03/06/22 - 04/05/22 [facility] [address] [place] [id number] Allergies, Adverse Reactions, Alerts Substance Reaction Severity [...] 2 tablet, 0 Refills, Maintenance, 03/06/22 14:34:00 [facility] #[id number], Partial fill uponpatient request if the prescription [...] tablet, 0 Refills, Maintenance, 03/06/22 14:34:00 EST, [facility] #[id number], Partial fill upon patient request if the [...] Team Personnel Name: Julianna Schreiber LPN Position: [facility] OB RN Member Role: Primary Care Nurse Name: Pamela Dorsey MA Position: [facility] Onco RN Member Role: Primary Care Nurse Name: Glenny Dyson NP Position: [facility] Outreach Member Role: PCP Address: Address: [address] [place] [phone] [place] Care Team Related Persons Name: DANNY REYNOLDS Address: [address] [place] [address] Name: JORGE REYNOLDS Address: [employer] Address: home [address] [place] [address] [place] Address: temporary 0
--- OUTSIDE RECORDS SUMMARY | 2023-10-18 17:55 | XMS_ITS | Continuity of Care Document ---
Author Organization [facility] Address [address] [place] [address]- Care Team Providers Care Small Arms Artillery Repairer Name Role Phone Kiel AMADO, Glenny Ayon Primary Care Physician [place] [facility] [place] 03/[place]/22 [facility] [address] [place] [id number] Allergies, Adverse Reactions, Alerts Substance Reaction Severity [...] 2 tablet, 0 Refills, Maintenance, 03/06/22 14:34:00 [facility][id number], Partial fill uponpatient request if the prescription [...] tablet, 0 Refills, Maintenance, 03/06/22 14:34:00 EST, [facility] #[id number], Partial fill upon patient request if the [...] Team Personnel Name: Julianna Schreiber LPN Position: [facility] OB RN Member Role: Primary Care Nurse Name: Glenny Dyson NP Position: [facility] Outreach Member Role: PCP Address: Address: [address] [place] [address]- Care Team Related Persons Name: DANNY REYNOLDS Address: home [address] [place] [address] Name: JORGE REYNOLDS Address: AMERCN Address: home [address] [place] [address] [place] Address: [facility] 0
--- OUTSIDE RECORDS SUMMARY | 2023-10-18 17:56 | XMS_ITS | Continuity of Care Document ---
Author Organization [facility] Address [address] [place] [address]- Care Team Providers Care Party Plan Dealer Name Role Phone Nilda Carty Primary Care Physician [place] [facility] [place] [facility] [place]09/21 - 01/08/22 [facility] [address] [place] [id number] Allergies, Adverse Reactions, Alerts Substance Reaction [...] Date: 11/21/17 Status: Ordered Problem List Condition Confirmation Course Effective Dates Status Health St atus Informant Asthma Confirmed Active Gestational diabetes mellitus, antepartum Confirmed Active Migraine Confirmed Active Obese class I Confirmed Active Patient Care team information Care Team Personnel Name: Nilda Carty Position: Reference Physician Member Role: PCP Address: Address: [address] [place] [address]- Name: Julianna Schreiber LPN Position: S OB RN Member Role: Primary Care Nurse Care Team Related Persons Name: DANNY REYNOLDS Address: [address] [place] [address] Name: JORGE REYNOLDS Address: AMERCN Address: [address] [place] [address] Address: temporary 0
--- OUTSIDE RECORDS SUMMARY | 2023-10-18 17:56 | XMS_ITS | Continuity of Care Document ---
Author Organization [facility] Infectious Disease Address [address] [place] [address]- Care Team Providers Care Satellite Tv Technician Name Role Phone Kiel AMADO, Glenny Ayon Primary Care Physician [place] [facility] [place] - 03/02/22 [facility] [address] [place] [id number] Allergies, Adverse Reactions, Alerts Substance [...] Team Personnel Name: Julianna Schreiber LPN Position: [facility] OB RN Member Role: Primary Care Nurse Name: Glenny Dyson NP Position: [facility] Outreach Member Role: PCP Address: Address: [address] [place] [address]- Care Team Related Persons Name: DANNY REYNOLDS Address: [address] [place] [address] Name: JORGE REYNOLDS Address: AMERCDevi Address: [address] [place] [address] Address: [place] [address]
--- OUTSIDE RECORDS SUMMARY | 2023-10-18 17:56 | XMS_ITS | Continuity of Care Document ---
Author Organization [facility] ter Address [address] [place] [address]- Care Team Providers Care Electrical Tester Battery Name Role Phone Kiel AMADO, Glenny Ayon Primary Care Physician Encounter [facility] [place] Date(s): 03/14/22 - 05/03/[address] [id number] Attending Physician: Tex Varela MD Admitting Physician: Tex Varela MD Referring Physician: Nikolas Gee MD, Tex Santiago Allergies, Adverse Reactions, Alerts Substance Reaction Severity [...] 2 tablet, 0 Refills, Maintenance, 03/06/22 14:34:00 [facility], [facility] #[id number], Partial fill uponpatient request if the prescription [...] tablet, 0 Refills, Maintenance, 03/06/22 14:34:00 EST, [facility] #[id number], Partial fill upon patient request if the [...] Care team information Care Team Personnel Name: Pamela Dorsey [place] Position: [facility] Onco RN Member Role: Primary Care Nurse Name: Glenny Dyson NP Position: [facility] Outreach Member Role: PCP Address: Address: [address] [place] [id number] Care Team Related Persons Name: DANNY REYNOLDS Address: [address] [place] [address] Name: JORGE REYNOLDS Address: AMERCN Address: [address] [place] [address] Address: temporary 0
--- OUTSIDE RECORDS SUMMARY | 2023-10-18 17:56 | XMS_ITS | Continuity of Care Document ---
Author Organization [facility] Address [address] [facility] [place] [address]- Care Team Providers Care Superintendent Local Name Role Phone Kiel AMADO, Glenny Ayon Primary Care Physician Encounter 10/06/22 - 10/13/22 [facility] [place] [address] [facility] [place] [address]- Attending Physician: Dana AMADO, Ana De Anda Admitting Physician: Dana AMADO, Ana De Anda Referring Physician: Dana AMADO, Ana De Anda Allergies, Adverse Reactions, Alerts Substance Reaction Severity [...] 2 tablet, 0 Refills, Maintenance, 03/06/22 14:34:00 [facility], [facility] #[id number], Partial fill uponpatient request if the prescription [...] tablet, 0 Refills, Maintenance, 03/06/22 14:34:00 EST, [facility] #[id number], Partial fill upon patient request if the [...] Confirmed Active Obese class I Confirmed Active Results Radiology Reports * Exam Date Time Procedure Performing Provider Status 10/06/22 1:09 PM US Abdomen Comp Laureen Guy; Auth (Verified) Notes: (US Abdomen Comp) Reason For Exam: 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 No focal lesion is seen. Main portal vein patent with normalhepatopetal direction of flow. Gallbladder: No gallstones. Normal wall thickness. No pericholecystic fluid. Negative Ortega sign. Biliary Tree: No intrahepatic or extrahepatic bile duct dilation is identified. Common duct: 0.5 cm. Pancreas: No abnormality in the visualized portions of the pancreas. Spleen: Normal in size and echotexture. Spleen measures 11.9 cm in length, decreased from 14.5 cm. Right kidney: 10.8 cm in length. Normal parenchymal echotexture and thickness. No hydronephrosis, stone or mass. Left kidney: 12.4 cm in length. Normal parenchymal echotexture and thickness. No hydronephrosis, stone or mass. Aorta: Normal caliber and contour. Inferior vena cava: Normal. Other: No free fluid. IMPRESSION: Normal abdominal ultrasound. Interval resolution of splenomegaly. WSN: [id number] Ordering Physician: Ana Cortez Dictated By: Rolando Mobley MD Dictated Date/Time: 10/06/22 1:52 pm Reviewed By: Rolando Mobley MD Signed By: Rolando Mobley MD Signed Date/Time: 10/06/22 1:52 pm Transcribed By: SYEDA Transcribed Date/Time: 10/06/22 1:49 pm Social History Social History Type Response Smoking Status Former smoker, quit more than 30 days ago; Other: quit 2015; entered on: 01/26/22 Sex Patient Care team information Care Team Personnel Name: Julianna Schreiber LPN Position: [facility] OB RN Member Role: Primary Care Nurse Name: Pamela Dorsey [place] Position: [facility] Onco RN Member Role: Primary Care Nurse Name: Glenny Dyson NP Position: [facility] Outreach Member Role: PCP Address: Address: [address] [place] [address]- Care Team Related Persons Name: ROLANDO REYNOLDS Address: [address] [place], [place] Name: JORGE REYNOLDS Address: AMERCN Address: home [address] [place], [place] Address: [place] [address]
--- OUTSIDE RECORDS SUMMARY | 2023-10-18 17:56 | XMS_ITS | Continuity of Care Document ---
Author Organization [facility] Address [address] [place] [address]- Care Team Providers Care English Faculty Member Name Role Phone Kiel AMADO, Glenny Ayon Primary Care Physician [place] [facility] [place] Date(s): 01/31/22 - 04/17/22 [facility] [address] [place] [address]- Discharge Disposition: A-D/C Home Attending Physician: Nikolas Gee MD, Tex Santiago Admitting Physician: Nikolas Gee MD, Tex Santiago Referring Physician: Kanika LERMA, Moy Prieto Allergies, Adverse Reactions, Alerts Substance Reaction Severity [...] 2 tablet, 0 Refills, Maintenance, 03/06/22 14:34:00 [id number] Partial fill uponpatient request if the prescription [...] tablet, 0 Refills, Maintenance, 03/06/22 14:34:00 EST, [facility] #[id number], Partial fill upon patient request if the [...] Confirmed Active Obese class I Confirmed Active Vital Signs Most recent to oldest [Reference Range]: 1 Height 163 cm (02/15/22 2:04 PM) Weight 85.6 kg (02/15/22 2:04 PM) Oxygen Saturation [94-100 %] 95 % (02/15/22 2:04 PM) Pulse Rate [55-90 bpm] 65 bpm (02/15/22 2:04 PM) Body Mass Index [18.5-24.99 kg/m2] 32.22 kg/m2 *>HHI* (02/15/22 2:04 PM) Blood Pressure [90-138/55-84 mm Hg] 119/ 54mm Hg (02/15/22 2:04 PM) Temperature [96.8-100.4 DegF] 98.7 DegF (02/15/22 2:04 PM) Mode of Delivery (Oxygen) Room air (02/15/22 2:04 PM) Blood pressure sites Arm, left (02/15/22 2:04 PM) Temperature Route Temporal (02/15/22 2:04 PM) Dry Weight 85.6 kg (02/15/22 2:04 PM) Weight Obtained Via Standing scale (02/15/22 2:04 PM) Dry Weight Obtained Via Standing scale (02/15/22 2:04 PM) Social History Social History Type Response Smoking Status Former smoker, quit more than 30 days ago; Other: quit 2015; entered on: 01/26/22 Sex Patient Care team information Care Team Personnel Name: Pamela Dorsey [place] Position: [facility] Onco RN Member Role: Primary Care Nurse Name: Glenny Dyson NP Position: [facility] Outreach Member Role: PCP Address: Address: [address] [place] [address]- Care Team Related Persons Name: DANNY REYNOLDS Address: [address] [place], [place] Name: JORGE REYNOLDS Address: AMERCN Address: [address] [place], [place] Address: [place] [address]
--- OUTSIDE RECORDS SUMMARY | 2023-10-18 17:56 | XMS_ITS | Continuity of Care Document ---
Author Organization [facility] Address [address] [place] [address]- Care Team Providers Care Gummed Tape Press Operator Name Role Phone Kiel AMADO, Glenny Ayon Primary Care Physician Encounter [facility] [place] Date(s): 01/31/22 - 03/02/22 [facility] [address] [place] [id number] Attending Physician: Arya Guido Admitting Physician: AdmtrArya [...] HOSPITAL Outreach Member Role: PCP Address: Address: [address] [place] [address]- Care Team Related Persons Name: DANNY REYNOLDS Address: [address] [place] [address] Name: JORGE REYNOLDS Address: AMERCN Address: [address] [place] [address] [place] Address: [facility] 0
--- OUTSIDE RECORDS SUMMARY | 2023-10-18 17:56 | XMS_ITS | Continuity of Care Document ---
Author Organization [facility] Infectious Disease Address [address] [place] [address]- Care Team Providers Care Laborer Laboratory Name Role Phone Kiel AMADO, Glenny Ayon Primary Care Physician En[place] [facility] [place] Date(s): 02/02/22 - 03/04/22 [facility] Disease [address] [place] [id number] Allergies, Adverse Reactions, Alerts Substance Reaction [...] Personnel Name: Julianna Schreiber LPN Position: [facility] OB RN Member Role: Primary Care Nurse Name: Glenny Dyson NP Position: [facility] Outreach Member Role: PCP Address: Address: [address] [place] [address]- Care Team Related Persons Name: DANNY REYNOLDS Address: [address] [place] [address] Name: JORGE REYNOLDS Address: AMERCDevi Address: [address] [place] [address] Address: [place] [address]
--- OUTSIDE RECORDS SUMMARY | 2023-10-18 17:56 | XMS_ITS | Continuity of Care Document ---
Author Organization [facility] ter Address [address] [place] [address]- Care Team Providers Care Auxiliary Powerplant Operator Name Role Phone Kiel AMADO, Glenny Ayon Primary Care Physician [place] [facility] [place] - 09/22/[address] [address] Attending Physician: Tam LERMA, Rhys Admitting Physician: Tam LERMA, Rhys Referring Physician: Tam LERMA, Rhys Allergies, Adverse Reactions, Alerts Substance Reaction Severity [...] 2 tablet, 0 Refills, Maintenance, 03/06/22 14:34:00 [facility], [facility] #[id number], Partial fill uponpatient request if the prescription [...] tablet, 0 Refills, Maintenance, 03/06/22 14:34:00 EST, [facility] #[id number], Partial fill upon patient request if the prescription is for a joaquin... Start Date: 03/06/22 Status: Ordered Milk of Magnesia 8% oral suspension 30 mL = 2.4 Gm, By Mouth, Daily at bedtime, PRN for constipation, # 300 mL, 0 Refills, Maintenance,09/02/23 22:35:00 EDT, Suspension, [id number], Partial fill upon patient request if the prescription is for a schedule II opioid drug., 163, cm... Start Date: 09/02/23 Status: Ordered MiraLax oral powder for reconstitution = 17 Gm, By Mouth, Daily, dissolve in 4 to 8 oz of beverage, # 238 Gm, 0 Refills, Maintenance, 09/02/23 22:35:00 EDT, REC Powder, [id number], Partial fill upon patient request if the prescription is for a schedule II opioid drug., 17 Gm By Audelia... 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 Gestational diabetes mellitus, antepartum Confirmed Active IgA deficiency Confirmed Active Migraine Confirmed Active Obese class I Confirmed Active Sjogren's syndrome Confirmed Active Social History Social History Type Response Smoking Status Former smoker, quit more than 30 days ago; Other: quit 2015; entered on: 01/26/22 Sex Patient Care team information Care Team Personnel Name: Pamela Dorsey [place] Position: [facility] Onco RN Member Role: Primary Care Nurse Name: Glenny Dyson NP Position: [facility] Outreach Member Role: PCP Address: Address: [address] [place] [address]- Care Team Related Persons Name: DANNY REYNOLDS Address: [address] [place] [address] Name: JORGE REYNOLDS Address: AMERCN Address: [address] [place] [address] Address: [place] [address]
--- OUTSIDE RECORDS SUMMARY | 2023-10-18 17:56 | XMS_ITS | Continuity of Care Document ---
Author Organization [facility] Address [address] [place] [address]- Care Team Providers Care Dynamics Ax Consultant Name Role Phone Nilda Carty Primary Care Physician ( [phone] Encounter [facility] [place] Date(s): 10/19/21 - 11/19/[address] [address]- Attending Physician: Kiel AMADO, Glenny Ayon Admitting Physician: Kiel AMADO, Glenny Ayon Referring Physician: Kiel AMADO, Glenny Ayon Allergies, Adverse Reactions, Alerts Substance Reaction Severity [...] I Confirmed Active Patient Care team information Personnel Name: Nilda Carty Address: Address: [address] [place], [place] [address]
--- OUTSIDE RECORDS SUMMARY | 2023-10-18 17:56 | XMS_ITS | Continuity of Care Document ---
Author Organization [facility] ter Address [address] [place] [address]- Care Team Providers Care Delinquent Notice Machine Operator Name Role Phone Nilda Carty Primary Care Physician ( [phone] [place] [facility] [place]16/[place] - 08/16/[address] [address]- Discharge Disposition: A-D/C Walkout Attending Physician: Not on Staff, Attending MD Admitting Physician: Not on Staff, Admitting MD Referring Physician: Not on Staff, Referring MD Allergies, Adverse Reactions, Alerts Substance Reaction [...] diabetes mellitu s, antepartum(Confirmed) Active Migraine(Confirmed) Active Obese class I(Confirmed) Active Vital Signs Most recent to oldest [Reference Range]: 1 2 Height 163 cm (08/16/21 8:56 AM) 163 cm (08/16/21 8:17 AM) Weight 84 kg (08/16/21 8:56 AM) 84 kg (08/16/21 8:17 AM) Oxygen Saturation [94-100 %] 100 % (08/16/21 11:05 AM) 100 % (08/16/21 8:17 AM) Pulse Rate [55-90 bpm] 55 bpm (08/16/21 11:05 AM) 61 bpm (08/16/21 8:17 AM) Body Mass Index [18.5-24.99] 31.62 *>HHI* (08/16/21 8:17 AM) Blood Pressure [90-138/55-84 mm Hg] 107/ 61mm Hg (08/16/21 11:05 AM) 122/51mm Hg (08/16/21 8:17 AM) Respiratory Rate [16-30 br/min] 18 br/mi n (08/16/21 11:05 AM) 18 br/min (08/16/21 8:17 AM) Temperature [96.8-100.4 DegF] 98.2 DegF (08/16/21 11:05 AM) 98.1 DegF (08/16/21 8:17 AM) Mode of Delivery (Oxygen) Room air (08/16/21 11:05 AM) Room air (08/16/21 8:17 AM) Blood pressure sites Arm, right (08/16/21 11:05 AM) Arm, left (08/16/21 8:17 AM) Temperature Route Oral (08/16/21 11:05 AM) Oral (08/16/21 8:17 AM) Weight Obtained Via Patient/family state d (08/16/21 8:17 AM)
--- OUTSIDE RECORDS SUMMARY | 2023-10-18 17:56 | XMS_ITS | Continuity of Care Document ---
Author Organization [facility] Address [address] [place] [address]- Care Team Providers Care Support Merchandiser Name Role Phone Kiel AMADO, Glenny Ayon Primary Care Physician [place] [facility] [place] 06/30/22 - 10/14/22 [facility] [address] [place] [address]- Discharge Disposition: A-D/C Home Attending Physician: Nikolas Gee MD, Tex Santiago Admitting Physician: Nikolas Gee MD, Tex Santiago Referring Physician: Kiel AMADO, Glenny Ayon Allergies, [...] 2 tablet, 0 Refills, Maintenance, 03/06/22 14:34:00 [facility][id number], Partial fill uponpatient request if the prescription [...] tablet, 0 Refills, Maintenance, 03/06/22 14:34:00 EST, [facility] #[id number], Partial fill upon patient request if the [...] Team Personnel Name: Julianna Schreiber LPN Position: [facility] OB RN Member Role: Primary Care Nurse Name: Pamela Dorsey [place] Position: [facility] Onco RN Member Role: Primary Care Nurse Name: Glenny Dyson NP Position: [facility] Outreach Member Role: PCP Address: Address: [address] [place] [address], [place] [address]- Name: Nikolas Gee MD, Tex Santiago Position: [facility] Physician - Oncology Med Service: Hematology & Oncology Member Role: Admitting Physician Address: Address: [address] [place] [address] Hem/[place] [address]- Care Team Related Persons Name: DANNY REYNOLDS Address: [address] [place] [address] Name: JORGE REYNOLDS Address: AMER[place] Address: home [address] [place] [address] Address: temporary 0
--- OUTSIDE RECORDS SUMMARY | 2023-10-18 17:56 | XMS_ITS | Continuity of Care Document ---
Author Organization [facility] Address [address] [place] [address]- Care Team Providers Care Boring Mill Set Up Operator Vertical Name Role Phone Kiel AMADO, Glenny Ayon Primary Care Physician [place] [facility] [place] 03[place]22 [facility] [address] [place] [address] Allergies, Adverse Reactions, Alerts [...] 2 tablet, 0 Refills, Maintenance, 03/06/22 14:34:00 [email or web address][id number], Partial fill uponpatient request if the prescription [...] tablet, 0 Refills, Maintenance, 03/06/22 14:34:00 EST, [email or web address] #[id number], Partial fill upon patient request if the [...] HOSPITAL Outreach Member Role: PCP Address: Address: [address] [place] [address]- Care Team Related Persons Name: DANNY REYNOLDS Address: [address] [place] [address] Name: JORGE REYNOLDS Address: AMERCN Address: [address] [place] [address] [place] Address: [facility] 0
--- OUTSIDE RECORDS SUMMARY | 2023-10-18 17:56 | XMS_ITS | Continuity of Care Document ---
Author Organization [facility] Address [address] [place] [address]- Care Team Providers Care Barrel Loader And Cleaner Name Role Phone Kiel AMADO, Glenny Ayon Primary Care Physician Encounter [facility] [place] Date(s): 02/07/22 - 03/09/22 [facility] [address] [place] [address]- Attending Physician: Arya Guido Admitting Physician: AdmArya balderas Referring Physician: Admtr, Ar8 Allergies, Adverse Reactions, [...] 7:52:18 EDT Start Date: 11/21/17 Status: Ordered Aller-Dogn 10 mg oral tablet See Instructions, take 1 tab 12 hours prior to exam, and then again at 2 hours prior to exam, # 2 tablet, 0 Refills, Maintenance, 03/06/22 14:34:00 [facility], [facility][id number], Partial fill uponpatient request if the prescription [...] tablet, 0 Refills, Maintenance, 03/06/22 14:34:00 EST, [facility] #[id number], Partial fill upon patient request if the [...] Team Personnel Name: Julianna Schreiber LPN Position: [facility] OB RN Member Role: Primary Care Nurse Name: Glenny Dyson NP Position: [facility] Outreach Member Role: PCP Address: Address: [address] [place] [address]- Care Team Related Persons Name: DANNY REYNOLDS Address: [address] [place] [address] Name: JORGE REYNOLDS Address: AMERCN Address: home [address] [place] [address] [place] Address: temporary 0
--- OUTSIDE RECORDS SUMMARY | 2023-10-18 17:56 | XMS_ITS | Patient Health Record ---
Author Organization [facility], [facility] Address [address] [place] [address] [phone] Support Name Relationship Address Phone JAVIER REYNOLDS Guarantor Unknown Unavailable REASON FOR REFERRAL No Information MEDICATIONS Medication SIG (Take, Route, Frequency, Duration) Notes Start Date End Date Status Albuterol Sulfate (2.5 MG/3ML) 0.083% Use one vial in nebulizer every 4-6 hours as needed for wheezing. Inhalation albuterol sulfate 2.5 mg/3 mL (0.083 %) solution for nebulization 11/17/2021 Active Ketorolac Tromethamine 10 MG Take 2 tabs orally once then take 1 tab every 6 hrs as needed for pain. Don not exceed 40 mg in 24 hrs Oral ketorolac 10 mg tablet 11/11/2021 Active LORazepam 0.5 MG Take 1 tab orally twice daily as needed for anxiety/panic Oral LORazepam 0.5 mg tablet 01/31/2022 Active oxyCODONE HCl 5 MG take 1 tab orally every 6 hrs as needed for acute pain Oral oxyCODONE 5 mg tablet 01/31/2022 Active SOLU-Medrol 125 MG Injection SOLU-MedroL ( PF) 125 mg/2 mL solution for injection 11/10/2021 Active Ubrelvy 100 MG Take 1 tab orally once at first sign of migraine Oral Ubrelvy 100 mg tablet 12/01/2021 Active SOCIAL HISTORY Sex Assigned At : Social History Observation Description Sex Assigned At Unknown PLAN OF TREATMENT No Information Insurance Providers Payer Name Payer Address Payer Phone Subscriber Number Group Number Insured Name Patient Relationship to Insured Coverage Start Date Coverage End Date [facility] [address] [place] [address] [id number] JAVIER REYNOLDS Self - patient is the insured
--- OUTSIDE RECORDS SUMMARY | 2023-10-18 17:56 | XMS_ITS | Continuity of Care Document ---
Author Organization [facility] ter Address [address] [place] [id number]- Care Team Providers Care Other Sports Official Name Role Phone Kiel AMADO, Glenny Ayon Primary Care Physician Encounter [facility] Date(s): 09/02/23 - 09/03/[address] [id number] Discharge Disposition: A-D/C Home Attending Physician: Flaca Najera MD Admitting Physician: Flaca Najera MD Referring Physician: Flaca Najera MD Allergies, Adverse Reactions, Alerts Substance Reaction [...] tablet, 0 Refills, Maintenance, 03/06/22 14:34:00 [facility], [facility] #[id number], Partial fill uponpatient request if the prescription [...] tablet, 0 Refills, Maintenance, 03/06/22 14:34:00 EST, [facility] #[id number], Partial fill upon patient request if the prescription is for a joaquin... Start Date: 03/06/22 Status: Ordered Milk of Magnesia 8% oral suspension 30 mL = 2.4 Gm, By Mouth, Daily at bedtime, PRN for constipation, # 300 mL, 0 Refills, Maintenance,09/02/23 22:35:00 EDT, Suspension, [facility]/pharmacy #[id number], Partial fill upon patient request if [...] By Audelia... Start Date: 09/02/23 Status: Ordered oxyCODONE 5 mg oral tablet 5 mg, Tablet, By Mouth, Once, PRN for Pain , Moderate, Routine, 09/02/23 21:01:00 EDT Start Date: 09/02/23 Stop Date: 09/02/23 Status: Completed PNV Plus oral tablet 0 Refills, Maintenance, [...] I Confirmed Active Sjogren's syndrome Confirmed Active Vital Signs Most recent to oldest [Reference Range]: 1 2 Height 163 cm (09/02/23 7:15 PM) Weight 86 kg (09/02/23 7:10 PM) Oxygen Saturation [94-100 %] 99 % (09/02/23 7:10 PM) Pulse Rate [55-90 bpm] 71 bpm (09/02/23 7:10 PM) Blood Pressure [90-138/55-84 mm Hg] 113/ 72mm Hg (09/02/23 7:10 PM) Respiratory Rate [16-30 br/min] 20 br/mi n (09/02/23 8:59 PM) 18 br/min (09/02/23 7:10 PM) Temperature [96.8-100.4 DegF] 98.4 DegF (09/02/23 7:10 PM) Mode of Delivery (Oxygen) Room air (09/02/23 7:10 PM) Blood pressure sites Arm, right (09/02/23 7:10 PM) Temperature Route Oral (09/02/23 7:10 PM) Dry Weight 86 kg (09/02/23 7:10 PM) Weight Obtained Via Standing scale (09/02/23 7:10 PM) Dry Weight Obtained Via Standing scale (09/02/23 7:10 PM) Social History Social History Type Response Smoking Status Former smoker, quit more than 30 days ago; Other: quit 2015; entered on: 01/26/22 Sex Note * Event Display: Discharge/Transfer Note Hospital Authored Date: * Aldo PUENTES, Shyanne Merida: PERFORM Event Display: Discharge/Transfer Note Hospital Authored Date: Nursing Discharge Note Entered On: 09/03/2023 0:01 EDT Performed On: 09/03/2023 0:00 EDT by Shyanne Carlson RN Nursing Discharge Note 2 Discharge Time : 09/03/2023 0:00 EDT Discharge Level of Care at Discharge : Home/Fpc/Foster Care Patient Left Unit Via : Ambulatory Patient Accompanied Off Unit with : Significant other DC Instructions Provided & Signed by Pt : Yes Patient Understands D/C Instructions : Yes Patient Instructions Discharge Signed : Yes Did Pt have Specialty Bed or Wound Vac : No Shyanne Carlson RN - 09/03/2023 0:00 EDT * Shyanne Carlson RN: PERFORM Event Display: Patient Education/Instruction Authored Date: [id number] Inpatient Adult Discharge Instructions. [address] [address] Name: JAVIER REYNOLDS : 1990?? Visit: 09/02/2023 19:07?? Current Date: 09/02/2023 23:47 ?? Account: [id number]?? Inpatient Adult Discharge Instructions We would like to thank you for allowing us to assist you with your healthcare needs. The following includes patient education materials and information regarding your injury/illness. Our entire staffstrives to provide an excellent experience for our patients and their families. PLEASE ENSURE YOU FOLLOW-UP PER THE INSTRUCTIONS BELOW! ?? YOUR OPINION IS IMPORTANT TO US! Please complete the survey you may receive by mail or email. Your feedback will be used to make improvements to the healthcare experiences of our patients and their families. Surveys are administered by [employer] ?? If further treatment with your primary care physician or another doctor is recommended, it is important for you to keep the appointment. Call your primary care physician or return to the Emergency Department immediately if your condition worsens, fails to improve, or new symptoms develop. If you need to find a doctor, you can call [facility] [email or web address] for a referral at [phone] or toll free at [phone] ([phone]) or log in to [email or web address].. ?? [facility], in keeping with [facility] guidance, no longer requires face masks for staff, patientsor visitors in most situations. Similiar to time spent indoors at other locations, there is the chance that you were exposed to repiratory viruses during your time with us (such as flu or COVID-19). If you develop symptoms concerning for a viral respiratory infection, please seek testing (and treatment if indicated) from your medical provider or home test kit. ?? You can view and manage your care through the patient portal or by using a health care bill of your choosing. [employer] is a website that allows you to securely view your medical information including your hospital discharge summary, office visit summaries, medications and follow-up visits. You can also request appointments, renew medications, and request access to your medical information using a health care bill of your choosing, or just ask a question. You can enroll at [email or web address] or register during your next office visit. You have been discharged from [facility], Patient Care Unit: [id number]??. If you have any questions regarding these instructions, including results of studies pending, afteryou leave, please call us and we will be happy to assist you 04/09. [facility] Your Care Team Attending Physician Flaca Najera MD?? Consulting Providers Flaca Najera MD?? Tests Performed Below is a partial list of the tests performed during your hospitalization. You may have had other tests and procedures not included in this list. Please discuss all test results with your provider. Urinalysis Complete Chlamydia/Neisseria RNA, TMA, Ur/TP/Swab (CHLAMYDIA/GC RNA, UR/TP/SWAB)?? Complete Urinalysis (Urinalysis Complete)?? Urine Culture (Culture Urine)?? Vaginosis Panel, CTNG?? Primary Care Provider Kiel AMADO, Glenny Ayon? Advance Directive Health Care Proxy on File No Discharge Vitals Temperature: 98.4 DegF Weight: 86 kg Pulse Rate: 71 bpm ?? Respiratory Rate: 20 br/min ?? Systolic Blood Pressure: 113 mm Hg ?? Diastolic Blood Pressure: 72 mm Hg ?? Oxygen Saturation: 99 % ?? Studies Pending All studies ordered during this hospital stay have been completed unless listed below. Please discuss all pending results with your provider listed above in these instructions. ?? Chlamydia/Neisseria RNA, TMA, Ur/TP/Swab (CHLAMYDIA/GC RNA, UR/TP/SWAB)?? Urine Culture (Culture Urine)?? Vaginosis Panel, CTNG?? What to do next Instructions From Your Doctor ?? Orders?? You Need to Schedule the Following Appointments Follow Up with??[facility] [phone] Discharge Medications JAVIER REYNOLDS :1990 Visit Date:09/02/2023 Medications: Please continue your medications until treatment is completed or stopped by your provider. Medications not listed below should be discontinued. Discuss any questions related to medications with your provider. What How Much When Instructions Next Dose New Milk of Magnesia (Milk of Magnesia 8% oral suspension) 30 Milliliter Oral Daily at Bedtime as needed for for constipation Pickup at [facility]/pharmacy #[id number] New Polyethylene Glycol 3350 (MiraLax oral powder for reconstitution) 17 gram Oral Daily dissolve in 4 to 8 oz of beverage ?? Pickup at [facility]/pharmacy #[id number] Unchanged Acetaminophen 1,000 Milligram 3 times a day as needed for Pain , Mild Unchanged Acetaminophen/ Butalbital/ Caffeine (acetaminophen/ butalbital/ caffeine 325 mg-50 mg-40 mg oral tablet) Unchanged Albuterol (ProAir HFA 90 mcg/ inh inhalation aerosol with adapter) Unchanged Cetirizine (Aller-Dong 10 mg oral tablet) See instructions take 1 tab 12 hours prior to exam, and then again at 2 hours prior to exam ?? Unchanged Estradiol-Norethindrone (estradiol-norethindrone 0.5 mg-0.1 mg oral tablet) 1 tab(s) Oral Daily Unchanged Gabapentin (gabapentin 300 mg oral capsule) 1 capsule Oral Twice a day as needed for Other Unchanged Lorazepam (LORazepam 1 mg oral tablet) 1 tab(s) Oral Twice a day as needed for as needed for anxiety Unchanged MethylPREDNISolone (Medrol 16 mg oral tablet) See instructions Take 2 tablets [address] scan then again [address] scan. ?? Unchanged Multivitamin, (PNV Plus oral tablet) Pharmacy Information [facility]/pharmacy #[id number]: [id number] [place] [phone] Prescription Given During Visit Milk of Magnesia (Milk of Magnesia 8% oral suspension) - 30 mL = 2.4 Gm, By Mouth, Daily at bedtime, # 300 mL, 0 Refills, [facility]/pharmacy #[id number], [id number] [place] [phone]?? Polyethylene Glycol 3350 (MiraLax oral powder for reconstitution) - 17 Gm, By Mouth, Daily, # 238 Gm, 0 Refills, dissolve in 4 to 8 oz of beverage, [facility]/pharmacy #[id number], [address] [place] [id number] [phone]?? Laboratory Results Below is a partial list of the most recent Laboratory test results done prior to this discharge. You may have had other tests and procedures not included in this list. Please discuss all test resultswith your provider. Urinalysis Complete (09/02/2023) ???Appear/Color, Urine - LIGHT YELLOW???Specific [place], Urine - 1.014???pH, Urine - 6.5???Albumin, Urine - NEGATIVE???Glucose, Urine - NEGATIVE???Ketones, Urine - NEGATIVE???Bilirubin, Urine - NEGATIVE???Hemoglobin, Urine - NEGATIVE???Nitrite, Urine - NEGATIVE???Leukocyte, Urine - TRACE???Urobilinogen - NORMAL???WBC's, Urine - 4 /HPF???RBC's, Urine - NONE SEEN???Squamous Epith - 6 /HPF Allergies (NKA means No Known Allergies) Adhesive Bandage Contrast Dye??(Hives, Hives) Latex??(Adhesive) erythromycin Problems Active Problems??(8) Asthma?? 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 Gestational diabetes mellitus, antepartum?? IgA deficiency?? Migraine?? Obese class I?? Sjogren's syndrome?? Education Materials Below is the list of Educational Leaflet Providered with your Discharge Instructions. Web[employer] Ignite Patient Education - Treating Constipation?? [employer] Patient Education - Constipation (Adult)?? Valuables and Belongings I fully understand and agree that [facility] accepts no responsibility for all my personal property including clothing, toilet articles, radios, jewelry, dentures, hearing aids, rings, money, or any other property that is in my possession or is brought to me after admission. I understand certain valuables may be placed in a hospital safe for a short period of time. I understand that the hospital is not liable for loss or damage due to accident, fire, or other natural occurrence while said property is in the safe. I accept full responsibility for any personal property that I keep with me, and will not hold the hospital responsible in case of loss or disappearance. I acknowledge that i have been encouraged to send valuables and belongings home. ? Other Discharge Information ? Pulmonary Rehab Status?? Pulmonary Rehab Discharge Status?? Respiratory Rate: 20 br/min ? Common Emergency Awareness Tips IS IT A STROKE? Act FAST and Check for these signs: FACE Does the face look uneven? ARM Does one arm drift down? SPEECH Does their speech sound strange? TIME Call at any sign of stroke ?? Heart Attack Signs Chest discomfort: Most heart attacks involve discomfort in the center of the chest and lasts more than a few minutes, or goes away and comes back. It can feel like uncomfortable pressure, squeezing, fullness or pain. Discomfort in upper body: Symptoms can include pain or discomfort in one or both arms, back, neck, jaw or stomach. Shortness of breath: With or without discomfort. Other signs: Breaking out in a cold sweat, nausea, or lightheaded. Remember, MINUTES DO MATTER. If you experience any of these heart attack warning signs, call to get immediate medical attention! ?? Smoking can increase your chances of developing chronic health problems and can cause harmful effects to other family members in your house. If you smoke, you are strongly encouraged to quit. Please call [facility] GetMyRx Link at [phone] or [phone] ([phone]) or log in to [email or web address] for referrals to smoking cessation programs. ?? 807 Suicide & Crisis Lifeline is available 04/09 if you or someone you know needs to find a reason to keep living. By calling 760 you'll be connected to a skilled, trained counselor at a crisis center in your area. INPATIENT DISCHARGE INSTRUCTIONS SIGNATURE PAGE JAVIER REYNOLDS Location:[facility] Registration Date and Time:09/02/2023 19:07 EDT Primary Care Physician: Kiel AMADO, Glenny Ayon, Attending Physician: Dania LERMA, Flaca Babb, I JAVIER REYNOLDS, have received the above patient education materials/instructions and have verbalized understanding. If ambulance or transport services are being used I further acknowledge being given a choice of service. ?? If you need to contact me, please call me at this number: . Patient/Manager Mountain Name: Patient/Manager Mountain Signature: Relationship to Patient: Witness Name/Signature: Date: * Aldo PUENTES, Shyanne Merida: PERFORM Event Display: Patient Education Leaflets Authored Date: [id number] Treating Constipation ?? [address] Treating Constipation Constipation is a common and often uncomfortable problem. Constipation means you have bowel movements??fewer than 3 times per week. Or that you strain to pass hard, dry stool. It can last a short time. Or it can be a problem that never seems to go away. The good news is that it can often be treatedand controlled. Eat more fiber One of the best ways to help treat constipation is to increase your fiber intake. You can do this either through diet or by using fiber supplements. Fiber (in whole grains, fruits, and vegetables) adds bulk and absorbs water to soften the stool. This helps the stool pass through the colon more easily. When you increase your fiber intake, do it slowly to prevent side effects such as bloating. Alsoincrease the amount of water that you drink. Eating more of these foods can add fiber to your diet:??? High-fiber cereals ??? Whole grains, bran, and brown rice ??? Vegetables such as carrots, broccoli, and greens ??? Fresh fruits (especially apples, pears, and dried fruits such as raisins and apricots) ??? Nuts and legumes (especially beans such as lentils, kidney beans, and cornelius beans) ?? Set a good routine ? Go to the bathroom when you feel you need to. Don???t ignore the urge to have a bowel movement.??? Set aside time after meals to go to the bathroom. ? Get physically active Exercise helps improve the working of your colon which helps ease constipation. Try to get some physical??activity every day. If you haven???t been active for a while, talk with your??healthcare provider??before starting again. ?? Consider other choices ??? Laxatives. Your healthcare provider may suggest an kezn-zaa-fitguuk product to help ease your constipation. They may suggest using bulk-forming products or laxatives. Laxatives are common and safe if used as directed. Follow directions carefully when using them. See your provider for new constipation or long-term constipation. This is??to rule out other causes such as certain medicines or other health conditions. See your provider if you have rectal bleeding. ??? Pelvic floor training. Biofeedback and pelvic physical therapy (PT) may be helpful. They can help if youhave pelvic floor problems that may be lead to constipation. For biofeedback, the healthcare provider puts sensors in and outside your anus. This helps you learn how to find and relax the muscles during a bowel movement so you don't get constipated. With PT, you'll learn exercises to help have normal bowel movements and prevent constipation. You may be taught different positions to use to keep from straining during a bowel movement. ?? Last Reviewed Date: 2021 ?? [employer]. All rights reserved. This information is not intended as a substitute for professional medical care. Always follow your healthcare professional's instructions. ?? * Aldo PUENTES, Shyanne Merida: PERFORM Event Display: Patient Education Leaflets Authored Date: [id number] Constipation (Adult) ?? [id number] Constipation (Adult) Constipation means that you have bowel movements that are less frequent than usual. Stools often become very hard and difficult to pass. Constipation is very common. At some point in life, it affects almost everyone. Since everyone's bowel habits are different, what is constipation to one person may not be to another. Your healthcare provider may do tests to diagnose constipation. It depends on what??they??find when evaluating you. Symptoms of constipation include: ??? Abdominal pain ??? Bloating ??? Vomiting ??? Painful bowel movements ??? Itching, swelling, bleeding, or pain around the anus Causes Constipation can have many causes. These include: ??? Diet low in fiber ??? Too much dairy ??? Not drinking enough liquids ??? Lack of exercise or physical activity (especially true for older adults)??? Changes in lifestyle or daily routine, including , aging, work, and travel ??? Frequent use or misuse of laxatives ??? Ignoring the urge to have a bowel movement or delaying it until later ??? Medicines, such as certain prescription pain medicines, iron supplements, antacids, certain antidepressants, and calcium supplements ??? Diseases like irritable bowel syndrome, bowel obstructions, stroke, diabetes, thyroid disease, Parkinson disease, hemorrhoids, and colon cancer ?? Complications Possible complications of constipation can include: ??? Hemorrhoids ??? Rectal bleeding from hemorrhoids or anal fissures??(skin tears) ??? Hernias ??? Chronic constipation ??? Fecal impaction, a severe form of constipation in which a large amount of hard stool is in your rectum that you can't pass??? Bowel obstruction or perforation ?? Home care All treatment should be done after talking with your healthcare provider. This is especially true if you have another medical problem, are taking prescription medicines, or are an older adult. Treatment most often involves lifestyle changes. You may also need medicines. Your healthcare provider will tell you which will work best for you. Follow the advice below to help avoid this problem in the future. ?? Lifestyle changes These lifestyle changes can help prevent constipation: ??? Diet. Eat a high- fiber diet, with fresh fruit and vegetables, and reduce dairy intake, meats, and processed foods ??? Fluids. It's importantto get enough fluids each day. Drink plenty of water when you eat more fiber. If you are on diet that limits the amount of fluid you can have, talk about this with your healthcare provider. ??? Regular exercise. Check with your healthcare provider first. ?? Medicines Take any medicines as directed. Some laxatives are safe to use only every now and then. Others can be taken on a regular basis. While laxatives don't cause bowel dependence, they are treating the symptoms. So your constipation may return if you don't make other changes. Talk with your healthcare provider or pharmacist if you have questions. Prescription pain medicines can cause constipation. If you are taking this kind of medicine, ask your healthcare provider if you should also take a stool softener. Medicines you may take to treat constipation include: ??? Fiber supplements ??? Stool softeners ???Laxatives ??? Enemas ??? Rectal suppositories ?? Follow-up care Follow up with your healthcare provider if symptoms don't get better in the next few days. You may need to have more tests or see a specialist. ?? Call 911 Call 911 if any of these occur: ??? Trouble breathing ??? Stiff, rigid abdomen that is severely painful to touch ??? Large amount of blood in the stool ??? Confusion ??? Fainting or loss of consciousness ??? Rapid heart rate ??? Chest pain ?? When to seek medical advice Call your healthcare provider right away if any of these occur: ??? Fever of 100.4??F (38??C) or higher, or as directed by your healthcare provider ??? Failure to resume normal bowel movements ??? Pain in your abdomen or back gets worse ??? Nausea or vomiting ??? Swelling in your abdomen ??? Small amount of blood in the stool ??? Black, tarry stool ??? Involuntary weight loss ??? Weakness ?? Last Reviewed Date: 2021 ?? 7405-2207 [employer]. All rights reserved. This information is not intended as a substitute for professional medical care. Always follow your healthcare professional's instructions. ?? Patient Care team information Care Team Personnel Name: Pamela Dorsey MA Position: [facility] Onco RN Member Role: Primary Care Nurse Name: Glenny Dyson NP Position: [facility] Outreach Member Role: PCP Address: Address: [address] [place] [address]- Name: Aldo PUENTES, Shyanne Merida Position: [facility] OB RN Member Role: Patient Care Provider Care Team Related Persons Name: DANNY REYNOLDS Address: [address] [place] [address] Name: JORGE REYNOLDS Address: [employer] Address: home [address] [place] [address] Address: [facility] [address]
--- OUTSIDE RECORDS SUMMARY | 2023-10-18 17:56 | XMS_ITS | Continuity of Care Document ---
Author Organization [facility] Address [address] [place] [address]- Care Team Providers Care Block Splitter Operator Name Role Phone Kiel AMADO, Glenny Ayon Primary Care Physician Encounter [facility] Date(s): 02/10/22 - 03/12/22 [facility] [address] [place] [id number] Allergies, Adverse Reactions, Alerts Substance Reaction [...] 2 tablet, 0 Refills, Maintenance, 03/06/22 14:34:00 [facility] #[id number], Partial fill uponpatient request if the prescription [...] tablet, 0 Refills, Maintenance, 03/06/22 14:34:00 EST, [facility] #[id number], Partial fill upon patient request if the [...] Team Personnel Name: Julianna Schreiber LPN Position: [facility] OB RN Member Role: Primary Care Nurse Name: Glenny Dyson NP Position: [facility] Outreach Member Role: PCP Address: Address: [address] [place] [id number]- Care Team Related Persons Name: DANNY REYNOLDS Address: home [address] [place] [address] Name: JORGE REYNOLDS Address: [place] Address: home [address] [place], [place] Address: [place] [address]
--- OUTSIDE RECORDS SUMMARY | 2023-10-18 17:56 | XMS_ITS | Continuity of Care Document ---
Author Organization [facility] Address [address] [place] [address]- Care Team Providers Care Finishing Machine Operator Name Role Phone Kiel AMADO, Glenny Ayon Primary Care Physician Encounter [facility] Date(s): 03/02/22 - 04/01/22 [facility] [address] [place] [id number]- Allergies, Adverse Reactions, Alerts Substance Reaction Severity [...] 2 tablet, 0 Refills, Maintenance, 03/06/22 14:34:00 [place], [facility] #[id number], Partial fill uponpatient request if the prescription [...] tablet, 0 Refills, Maintenance, 03/06/22 14:34:00 EST, [facility] #[id number], Partial fill upon patient request if the [...] Team Personnel Name: Julianna Schreiber LPN Position: [facility] OB RN Member Role: Primary Care Nurse Name: Glenny Dyson NP Position: [facility] Outreach Member Role: PCP Address: Address: [address] [place] [id number]- Care Team Related Persons Name: DANNY REYNOLDS Address: home [address] [place] [address] Name: JORGE REYNOLDS Address: [employer] Address: home [address] [place] [address] [place] Address: temporary 0
[2023-10-18] MEDS: 0.9 % Sodium Chloride 1,000 ML 999 ML IV (18:26)
[2023-10-18] MEDS: ondansetron HCL 4 MG/2 ML VIAL IVPUSH (18:26)
[2023-10-18] MEDS: Morphine Sulfate 4 MG/ML CARTRIDGE IVPUSH (18:26)
--- NOTE | 2023-10-18 18:33 | PC.NURSE ---
IV established, medicated per the MAR. ultrasound at bedside
[2023-10-18 20:24] VITALS: BP 114/73; PULSE 69; RESP 20; TEMP 36.4; O2SAT 99
[2023-10-18] MEDS: HYDROmorphone HCl 1 MG/ML SYRINGE IVPUSH (20:24)
[2023-10-18] MEDS: iohexoL 350 MG/ML 100 ML INFUS..BTL 85 ML IV (21:25)
--- NOTE | 2023-10-18 21:44 | PM.IMHP ---
History of Present Illness Date of Service: 10/18/23 Chief Complaint: abd pain 33F PMH becets, EDS, melanoma s/p excision 2019, splenomegaly, fibromyalgia, mild intermittent asthma, chronic pain syndrome, mood disorder, interstitial cystitis presented with abdominal pain. Patient reports pain has been going on for about 3 weeks. Started mid epigastric, radiates to right upper quadrant. Worse with food associated with loose diarrhea. Also had some vomiting. Recently started radiating to back specifically left side. In ED ALT noted to be elevated to the 60s, abdominal ultrasound negative, CT abdomen done but report pending. 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] Personal history of malignant melanoma of skin Muscle spasm of back Chronic pain syndrome Generalized anxiety disorder Major depressive disorder, single episode, in full remission Social History Alcohol intake: current Alcohol intake frequency: a few times a week Patient Tobacco Use Status: Former Tobacco user Substance Use Type: Other and Caffiene Advance Directives: No Advance Directives Information Provided: Yes Do you have a plan to hurt others: No Plan Meds Allergies Allergy/AdvReac Type Severity Reaction Status Date / Time erythromycin base Allergy Unknown UNKNOWN Verified 10/18/23 14:40 [ERYTHROMYCIN BASE] latex [LATEX] Allergy Unknown UNKNOWN Verified 10/18/23 14:40 Adhesive tape Allergy Unknown Unknown Uncoded 10/18/23 14:40 Erthromycin Allergy Unknown Unknown Uncoded 10/18/23 14:40 Latex Allergy Unknown Unknown Uncoded 10/18/23 14:40 Active Medications: Current Medications Acetaminophen (Acetaminophen 325 Mg Tablet) 650 mg PO Q6H PRN PRN Reason: Pain, Mild (Pain Scale 1-3), fever or headache Calcium Carbonate (Calcium Carbonate 750 Mg Tab.Chew) 750 mg PO Q4H PRN PRN Reason: Heartburn Hydromorphone HCl (Hydromorphone Hcl 1 Mg/Ml Syringe) 1 mg IVPUSH Q4H PRN; Protocol PRN Reason: severe pain Magnesium Hydroxide (Milk Of Magnesia 30 Ml Oral.Susp) 30 ml PO DAILY PRN PRN Reason: Constipation Melatonin (Melatonin 3 Mg Tablet) 6 mg PO BEDTIME PRN PRN Reason: Insomnia Sodium Chloride (0.9 % Sodium Chloride Flush 3 Ml Syringe) 3 ml IVFLUSH QSHIFT [facility] Home Medications ?Medication ?Instructions ?Recorded ?Confirmed ?Last Taken ?Type duloxetine 30 mg capsule,delayed 30 mg PO BID 08/04/22 Unknown History release lorazepam 0.5 mg tablet 0.5 mg PO BID PRN 08/04/22 Unknown History acetaminophen 500 mg tablet 1,000 mg PO Q6-8H PRN Pain 10/18/23 10/18/23 Unknown History (Tylenol Extra Strength) baclofen 10 mg tablet 10 mg PO TID 10/18/23 Unknown History buspirone 15 mg tablet 15 mg PO TID 10/18/23 Unknown History colchicine 0.6 mg tablet 0.6 mg DAILY 10/18/23 Unknown History dextroamphetamine-amphetamine 10 10 mg PO DAILY@1200 10/18/23 10/18/23 10/18/23 History mg tablet dextroamphetamine-amphetamine 10 PO 10/18/23 Unknown History mg tablet duloxetine 60 mg capsule,delayed 60 mg PO QAM 10/18/23 Unknown History release gabapentin 800 mg tablet 800 mg PO TID 10/18/23 Unknown History ibuprofen 200 mg tablet 400 mg PO Q6-8H PRN Pain 10/18/23 10/18/23 Unknown History mupirocin 2 % topical ointment topical BID 10/18/23 Unknown History Physical Exam Vital Signs and Narrative: Vital Signs: Last Vital Signs Temp 97.6 F 10/18/23 20:24 Pulse 69 10/18/23 20:24 Resp 20 10/18/23 20:24 BP 114/73 10/18/23 20:24 Pulse Ox 99 10/18/23 20:24 O2 Del Method Room Air 10/18/23 20:24 BMI result Body Mass Index 29.9 General: AO X 3, in pain Resp: CTA bilateral, no accessory muscles used CVS: S1,S2,RRR GI: soft, epigatric tenderness, non distended Neuro: motor grossly intact, alert Psych: appropriate affect, appropriate insight Results Labs 10/18/23 14:56 10/18/23 14:56 Labs: Laboratory Results - last 24 hr 10/18/23 14:56 MCV 85.6 MCH 29.2 MCHC 34.1 RDW 12.6 Plt Count 262 MPV 9.4 Immature Gran % (Auto) 0.2 Neut % (Auto) 44.4 L Lymph % (Auto) 37.4 [place] % (Auto) 6.7 Eos % (Auto) 10.4 H Baso % (Auto) 0.9 Lymph # (Auto) 3.2 [place] # (Auto) 0.6 Eos # (Auto) 0.9 H Baso # (Auto) 0.1 Abs Immat Gran (auto) 0.02 Absolute Neuts (auto) 3.8 Absolute Nucleated RBC 0.000 Nucleated RBC % (auto) 0.0 Anion Gap 12 Estim Creat Clear Calc 106.0 Estimated GFR > 60 Random Glucose 83 Calcium 9.7 Magnesium 1.8 Total Bilirubin 0.4 Direct Bilirubin 0.1 AST 21 ALT 62 H Alkaline Phosphatase 74 Total Protein 6.6 Albumin 4.3 Lipase 30 Urine Color Yellow Urine Appearance Clear Urine pH 6.0 Ur Specific [place] 1.010 Urine Protein Negative Urine Glucose (UA) Negative Urine Ketones Negative Urine Blood Negative Urine Nitrite Negative Ur Leukocyte Esterase Negative Urine Test NEGATIVE Urine Opiates Screen Not Detected Ur Buprenorphine Scrn Not Detected Ur Oxycodone Screen Not Detected Urine Methadone Screen Positive H Urine Fentanyl Screen Not Detected Ur Barbiturates Screen Not Detected Ur Phencyclidine Scrn Not Detected Ur Amphetamines Screen Not Detected U Benzodiazepines Scrn Not Detected Urine Cocaine Screen Not Detected U Marijuana (THC) Screen POSITIVE H Ethyl Alcohol < 10 COVID-19 (SREEDHAR) Negative COVID-19 Clin Com See Note Imaging Radiologist's Impressions: Impressions Chest X-Ray 10/18/23 18:05 IMPRESSION: No acute cardiopulmonary disease. Electronically signed by: Juan F Ashley DO 10/18/2023 07:56 PM EDT Abdomen Ultrasound 10/18/23 18:28 IMPRESSION: Normal sonographic appearance of the gallbladder. Electronically signed by: Juan F Ashley DO 10/18/2023 07:55 PM EDT Assessment and Plan (1) Intractable abdominal pain: Status: Acute Plan 33F PMH becets, EDS, melanoma s/p excision 2019, splenomegaly, fibromyalgia, mild intermittent asthma, chronic pain syndrome, mood disorder, interstitial cystitis presented with abdominal pain Intractable abdominal pain Broad differential, follow-up CT abdomen GI eval Pain meds Mild intermittent asthma Albuterol as needed Low risk for DVT-early ambulation Full code Quality Stroke Does the patient have a stroke diagnosis?: No VTE Prior VTE?: No VTE Risk Level:: Medical - low VTE Device Contraindication: Treatment Not Indicated VTE Drug Contraindication: Treatment Not Indicated
--- NOTE | 2023-10-18 21:50 | PHA.MEDREC ---
Addendum entered by Jackie An formerly [facility] 10/18/23 22:21: Patient states her ketamine is in dennise form used in her cheek, unable to find any information on exact dosing or product Addendum entered by Jackie An formerly [facility] 10/18/23 22:04: Reviewed by [facility] Original Note: Pharmacy Consult ? Medication Reconciliation Pharmacy has completed the medication reconciliation. Spoke to patient to confirm med list patient states she no longer takes proportional 10 mg. patient confirm Dextroamphetamine-amphetamine 20 mg qam and 10 mg at noon prn, Buspirone 15 mg is bid , Duloxetine is 60 mg plus 30 mg daily for a total dose of 90 mg total. Patient also states she take Ketamine 60 mg or mcg daily she isn't sure of the dose. she gets from her psychiatrist
[2023-10-18] MEDS: Lactated Ringers 1,000 ML 80 ML IVCONT (23:45)
[2023-10-18] MEDS: HYDROmorphone HCl 0.5 MG/0.5 ML SYRINGE IVPUSH (23:45)
[2023-10-18] MEDS: 0.9 % Sodium Chloride Flush 3 ML SYRINGE IVFLUSH (23:46)
[2023-10-18 23:47] VITALS: BP 124/84; PULSE 69; RESP 18; TEMP 36; O2SAT 99
[2023-10-19] MEDS: Baclofen 10 MG TABLET PO ×4 (00:22→21:06)
[2023-10-19] MEDS: HYDROmorphone HCl 0.5 MG/0.5 ML SYRINGE IVPUSH ×5 (03:54→22:50)
[2023-10-19 04:18] VITALS: BP 111/53; PULSE 57; RESP 18; TEMP 36.1; O2SAT 100
[2023-10-19 06:45] LABS: Hemoglobin 13.1 g/dl (12.0-16.0); Mean Corpuscular HGB Conc 32.8 g/dl (31.0-35.0); Mean Corpuscular Hemoglobin 28.5 pg (27.0-33.0); Mean Platelet Volume 9.7 fL (9.4-12.3); Platelet Count 245 X10*3/uL (160-400); Red Cell Distribution Width 12.6 % (11.0-16.0); White Blood Count 7.9 X10*3/uL (4.8-10.8)
[2023-10-19 06:49] LABS: Alanine Aminotransferase 51 U/L (0-31); Albumin Level 3.7 g/dL (3.5-5.0); Alkaline Phosphatase 63 U/L (39-117); Anion Gap 10 (12-20); Aspartate Amino Transferase 21 U/L (5-31); Bilirubin Direct 0.1 mg/dL (0.0-0.5); Bilirubin Total 0.4 mg/dL (0.0-1.0); Blood Urea Nitrogen 5 mg/dL (9-16); Calcium 9.1 mg/dL (8.4-10.2); Carbon Dioxide 26 mmol/L (22-29); Chloride 108 mmol/L (96-108); Creatinine Clr Calc Pharmacy 120.2; Estimated Glomerular Filt Rate > 60; Glucose Fasting 79 mg/dL (60-99); Magnesium 1.8 mg/dL (1.6-2.6); Potassium 3.4 mmol/L (3.3-5.1); Sodium 141 mmol/L (135-145); Total Protein 5.6 g/dL (6.5-8.0)
[2023-10-19 07:54] VITALS: BP 100/56; PULSE 57; RESP 17; TEMP 36.2; O2SAT 98
[2023-10-19] MEDS: DULoxetine HCl 60 MG CAPSULE.DR PO (08:00)
[2023-10-19] MEDS: busPIRone HCl 5 MG TABLET 15 MG PO ×2 (08:00→21:05)
[2023-10-19] MEDS: 0.9 % Sodium Chloride Flush 3 ML SYRINGE IVFLUSH ×3 (08:00→23:59)
[2023-10-19] MEDS: Gabapentin 400 MG CAPSULE 800 MG PO ×3 (08:00→21:06)
[2023-10-19] MEDS: DULoxetine HCl 30 MG CAPSULE.DR PO (08:00)
[2023-10-19 10:45] LABS: Erythrocyte Sedimentation Rate 4 MM/HR (0-20)
--- NOTE | 2023-10-19 10:58 | P.PNIM_ITS ---
Subjective Subjective Date of Service: 10/19/23 Interval History: Seen and evaluated this morning reporting Left sided back pain and RUQ pain reporting fever at home nausea no other events Review of Systems Review of Systems: Yes all other systems are reviewed and are negative Physical Exam 2 Vital Signs: Vital Signs: Last Vital Signs Temp 97.1 F 10/19/23 07:54 Pulse 57 10/19/23 07:54 Resp 17 10/19/23 07:54 BP 100/56 L 10/19/23 07:54 Pulse Ox 98 10/19/23 07:54 O2 Del Method Room Air 10/19/23 07:54 BMI result Body Mass Index 29.9 Const: Other: Constitutional : Awake, interactive, not in distress Neck : Normal inspection, Supple Cardiovascular : RRR, no JVP, no lower extremity edema Respiratory : good bilateral air entry, no crackles, wheezes or rhonchi Gastrointestinal: soft, lax, Normal bowel sounds, RUQ tenderness , Left CVA? tenderness, no surgical signs Skin : Warm, Dry Neurological : Alert & oriented x3, No focal deficit Objective Data Active Medications Acetaminophen (Acetaminophen 325 Mg Tablet) 650 mg PO Q6H PRN PRN Reason: Pain, Mild (Pain Scale 1-3), fever or headache Albuterol Sulfate (Albuterol Sulfate 90 Mcg 8 Gm Inhaler) 2 puff INHALE RQ4H PRN PRN Reason: sob Baclofen (Baclofen 10 Mg Tablet) 10 mg PO TID ON LICENSE OF [facility] Last Admin: 10/19/23 08:00 Dose: 10 mg Documented By: GOPAL Buspirone HCl (Buspirone Hcl 5 Mg Tablet) 15 mg PO BID ON LICENSE OF [facility] Last Admin: 10/19/23 08:00 Dose: 15 mg Documented By: GOPAL Calcium Carbonate (Calcium Carbonate 750 Mg Tab.Chew) 750 mg PO Q4H PRN PRN Reason: Heartburn Duloxetine HCl (Duloxetine Hcl 60 Mg Capsule.) 60 mg PO DAILY ON LICENSE OF [facility] Last Admin: 10/19/23 08:00 Dose: 60 mg Documented By: GOPAL Duloxetine HCl (Duloxetine Hcl 30 Mg Capsule.) 30 mg PO DAILY ON LICENSE OF [facility] Last Admin: 10/19/23 08:00 Dose: 30 mg Documented By: GOPAL Gabapentin (Gabapentin 400 Mg Capsule) 800 mg PO TID ON LICENSE OF [facility] Last Admin: 10/19/23 08:00 Dose: 800 mg Documented By: GOPAL Hydromorphone HCl (Hydromorphone Hcl 0.5 Mg/0.5 Ml Syringe) 0.5 mg IVPUSH Q4H PRN; Protocol PRN Reason: severe pain Last Admin: 10/19/23 07:59 Dose: 0.5 mg Documented By: GOPAL Lactated Ringer's (Lr) 1,000 mls @ 80 mls/hr IVCONT .[id number] ON LICENSE OF [facility] Last Admin: 10/18/23 23:45 Dose: 80 mls/hr Documented By: RADHA Ceftriaxone Sodium 1 gm/ (Sodium Chloride) 50 mls @ 100 mls/hr IV Q24H ON LICENSE OF [facility] Magnesium Hydroxide (Milk Of Magnesia 30 Ml Oral.Susp) 30 ml PO DAILY PRN PRN Reason: Constipation Melatonin (Melatonin 3 Mg Tablet) 6 mg PO BEDTIME PRN PRN Reason: Insomnia Ondansetron HCl (Ondansetron Hcl 4 Mg/2 Ml Vial) 4 mg IVPUSH Q6H PRN PRN Reason: Nausea and Vomiting Sodium Chloride (0.9 % Sodium Chloride Flush 3 Ml Syringe) 3 ml IVFLUSH QSHIFT ON LICENSE OF [facility] Last Admin: 10/19/23 08:00 Dose: 3 ml Documented By: GOPAL Labs 10/19/23 05:28 10/19/23 05:28 Labs: Laboratory Results - last 24 hr 10/18/23 10/19/23 14:56 05:28 MCV 85.6 87.0 MCH 29.2 28.5 MCHC 34.1 32.8 RDW 12.6 12.6 Plt Count 262 245 MPV 9.4 9.7 Immature Gran % (Auto) 0.2 Neut % (Auto) 44.4 L Lymph % (Auto) 37.4 [place] % (Auto) 6.7 Eos % (Auto) 10.4 H Baso % (Auto) 0.9 Lymph # (Auto) 3.2 [place] # (Auto) 0.6 Eos # (Auto) 0.9 H Baso # (Auto) 0.1 Abs Immat Gran (auto) 0.02 Absolute Neuts (auto) 3.8 Absolute Nucleated RBC 0.000 0.000 Nucleated RBC % (auto) 0.0 0.0 ESR 4 Anion Gap 12 10 L Estim Creat Clear Calc 106.0 120.2 Estimated GFR > 60 > 60 Random Glucose 83 Fasting Glucose 79 Calcium 9.7 9.1 D Magnesium 1.8 1.8 Total Bilirubin 0.4 0.4 Direct Bilirubin 0.1 0.1 AST 21 21 ALT 62 H 51 H Alkaline Phosphatase 74 63 C-Reactive Protein 0.10 Total Protein 6.6 5.6 L Albumin 4.3 3.7 Lipase 30 Urine Color Yellow Urine Appearance Clear Urine pH 6.0 Ur Specific [place] 1.010 Urine Protein Negative Urine Glucose (UA) Negative Urine Ketones Negative Urine Blood Negative Urine Nitrite Negative Ur Leukocyte Esterase Negative Urine Test NEGATIVE Urine Opiates Screen Not Detected Ur Buprenorphine Scrn Not Detected Ur Oxycodone Screen Not Detected Urine Methadone Screen Positive H Urine Fentanyl Screen Not Detected Ur Barbiturates Screen Not Detected Ur Phencyclidine Scrn Not Detected Ur Amphetamines Screen Not Detected U Benzodiazepines Scrn Not Detected Urine Cocaine Screen Not Detected U Marijuana (THC) Screen POSITIVE H Ethyl Alcohol < 10 COVID-19 (SREEDHAR) Negative COVID-19 Clin Com See Note Assessment and Plan (1) Intractable abdominal pain: Status: Acute (2) Muscle spasm of back: Status: Acute (3) Chronic pain syndrome: Status: Acute Plan 33F [facility] aria, EDS, melanoma s/p excision 2019, splenomegaly, fibromyalgia, mild intermittent asthma, chronic pain syndrome, mood disorder, interstitial cystitis presented with abdominal pain Intractable abdominal pain CT abdomen showing enlarged RUQ LN which seems to be chronic Has left CVA tenderness ? Muscle pain ? Empirical Ceftriaxone for now given reported fever and CVa tenderness Muscle relaxant : Baclofen Pending GI eval Zofran for nausea IVF PRN dilaudid for pain Mild intermittent asthma Albuterol as needed Low risk for DVT early ambulation Full code Quality Stroke Does the patient have a stroke diagnosis?: No VTE Prior VTE?: No VTE Risk Level:: Medical - low VTE Device Contraindication: Treatment Not Indicated VTE Drug Contraindication: Treatment Not Indicated
[2023-10-19] MEDS: cefTRIAXone sodium 1 GM in 0.9 % Sodium Chloride 50 ML IV (11:06)
[2023-10-19] MEDS: ondansetron HCL 4 MG/2 ML VIAL IVPUSH ×2 (11:06→22:50)
[2023-10-19 11:38] LABS: Lactate Dehydrogenase 197 U/L (122-220)
--- NOTE | 2023-10-19 11:54 | P.CNGI_ITS ---
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 Patient reports a background of chronic intermittent right-sided abdominal pain that has been ongoing for more than a year. Sees Dr Colon at [facility] as outpatient. Reports having an upper endoscopy and colonoscopy last year for the same. More recently, over the last 2-3 weeks, the pain has worsened with nausea and decreased p.o. intake. Reports reduced appetite. Also has been having diarrhea with watery nonbloody bowel movements 3 to 4 times a day. Does not think that this slowed down when she skips food. No sick contacts. No new medications. On initial evaluation, was noted to be vitally stable. Labs with no significant abnormality on CBC and chem 7. Tox screen positive for methadone as well as marijuana. CT abdomen pelvis with IV contrast personally reviewed and shows and shows no gastric wall thickening or air-fluid level to suggest GI 0 0. Gallbladder without any radiopaque stones. Decompressed CBD. Lymphadenopathy on the right side of her abdomen noticed. 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] Personal history of malignant melanoma of skin Muscle spasm of back Chronic pain syndrome Generalized anxiety disorder Major depressive disorder, single episode, in full remission Social History Social History Alcohol intake: current Alcohol intake frequency: a few times a week Patient Tobacco Use Status: Former Tobacco user Substance Use Type: Other and Caffiene Meds Allergies Allergy/AdvReac Type Severity Reaction Status Date / Time erythromycin base Allergy Unknown UNKNOWN Verified 10/18/23 14:40 [ERYTHROMYCIN BASE] latex [LATEX] Allergy Unknown UNKNOWN Verified 10/18/23 14:40 Adhesive tape Allergy Unknown Unknown Uncoded 10/18/23 14:40 Erthromycin Allergy Unknown Unknown Uncoded 10/18/23 14:40 Latex Allergy Unknown Unknown Uncoded 10/18/23 14:40 Active Medications: Current Medications Acetaminophen (Acetaminophen 325 Mg Tablet) 650 mg PO Q6H PRN PRN Reason: Pain, Mild (Pain Scale 1-3), fever or headache Albuterol Sulfate (Albuterol Sulfate 90 Mcg 8 Gm Inhaler) 2 puff INHALE RQ4H PRN PRN Reason: sob Baclofen (Baclofen 10 Mg Tablet) 10 mg PO TID [facility] Last Admin: 10/19/23 08:00 Dose: 10 mg Buspirone HCl (Buspirone Hcl 5 Mg Tablet) 15 mg PO BID [facility] Last Admin: 10/19/23 08:00 Dose: 15 mg Calcium Carbonate (Calcium Carbonate 750 Mg Tab.Chew) 750 mg PO Q4H PRN PRN Reason: Heartburn Duloxetine HCl (Duloxetine Hcl 60 Mg Capsule.Dr) 60 mg PO DAILY [facility] Last Admin: 10/19/23 08:00 Dose: 60 mg Duloxetine HCl (Duloxetine Hcl 30 Mg Capsule.Dr) 30 mg PO DAILY [facility] Last Admin: 10/19/23 08:00 Dose: 30 mg Gabapentin (Gabapentin 400 Mg Capsule) 800 mg PO TID [facility] Last Admin: 10/19/23 08:00 Dose: 800 mg Hydromorphone HCl (Hydromorphone Hcl 0.5 Mg/0.5 Ml Syringe) 0.5 mg IVPUSH Q4H PRN; Protocol PRN Reason: severe pain Last Admin: 10/19/23 07:59 Dose: 0.5 mg Lactated Ringer's (Lr) 1,000 mls @ 80 mls/hr IVCONT .[id number] [facility] Last Infusion: 10/19/23 11:10 Dose: 0 mls/hr Ceftriaxone Sodium 1 gm/ (Sodium Chloride) 50 mls @ 100 mls/hr IV Q24H [facility] Last Admin: 10/19/23 11:06 Dose: 100 mls/hr Magnesium Hydroxide (Milk Of Magnesia 30 Ml Oral.Susp) 30 ml PO DAILY PRN PRN Reason: Constipation Melatonin (Melatonin 3 Mg Tablet) 6 mg PO BEDTIME PRN PRN Reason: Insomnia Ondansetron HCl (Ondansetron Hcl 4 Mg/2 Ml Vial) 4 mg IVPUSH Q6H PRN PRN Reason: Nausea and Vomiting Last Admin: 10/19/23 11:06 Dose: 4 mg Sodium Chloride (0.9 % Sodium Chloride Flush 3 Ml Syringe) 3 ml IVFLUSH QSHIFT [facility] Last Admin: 10/19/23 08:00 Dose: 3 ml Home Medications ?Medication ?Instructions ?Recorded ?Confirmed ?Last Taken ?Type duloxetine 30 mg capsule,delayed 30 mg PO DAILY 08/04/22 10/18/23 10/18/23 History release lorazepam 0.5 mg tablet 0.5 mg PO QID PRN Anxiety 08/04/22 10/18/23 10/18/23 History acetaminophen 500 mg tablet 1,000 mg PO Q6-8H PRN Pain 10/18/23 10/18/23 Unknown History (Tylenol Extra Strength) baclofen 10 mg tablet 10 mg PO TID 10/18/23 10/18/23 10/18/23 History buspirone 15 mg tablet 15 mg PO BID 10/18/23 10/18/23 10/18/23 History colchicine 0.6 mg tablet 0.6 mg DAILY 10/18/23 10/18/23 10/18/23 History dextroamphetamine-amphetamine 10 10 mg PO DAILY@1200 PRN attention 10/18/23 10/18/23 10/18/23 History mg tablet dextroamphetamine-amphetamine 10 20 mg PO DAILY 10/18/23 10/18/23 10/18/23 History mg tablet duloxetine 60 mg capsule,delayed 60 mg PO DAILY 10/18/23 10/18/23 10/18/23 History release gabapentin 800 mg tablet 800 mg PO TID 10/18/23 10/18/23 10/18/23 History ibuprofen 200 mg tablet 400 mg PO Q6-8H PRN Pain 10/18/23 10/18/23 Unknown History ketamine 100 mg sublingual dennise 60 mg sublingual DAILY 10/18/23 10/18/23 Unknown History mupirocin 2 % topical ointment 1 appl topical BID PRN Rash 10/18/23 10/18/23 Unknown History Physical Exam 2 Vital Signs: Vital Signs: Last Vital Signs Temp 97.1 F 10/19/23 07:54 Pulse 57 10/19/23 07:54 Resp 17 10/19/23 07:54 BP 100/56 L 10/19/23 07:54 Pulse Ox 98 10/19/23 07:54 O2 Del Method Room Air 10/19/23 07:54 BMI result Body Mass Index 29.9 No apparent distress Nonicteric normal resp Abdomen soft, nondistended, voluntary guarding on palpation paula in epigastrium and RUQ Alert and oriented x3 Results Labs 10/19/23 05:28 10/19/23 05:28 Labs: Short CBC 10/18/23 10/19/23 Range/Units 14:56 05:28 WBC 8.6 7.9 (4.8-10.8) X10*3/uL Hgb 14.2 13.1 (12.0-16.0) g/dl Hct 41.6 40.0 (37.0-47.0) % Plt Count 262 245 (160-400) X10*3/uL BMP 10/18/23 10/19/23 14:56 05:28 Sodium 142 141 Potassium 3.6 3.4 Chloride 108 108 Carbon Dioxide 26 26 BUN 6 L 5 L Creatinine 0.76 0.67 Calcium 9.7 9.1 D Liver Function 10/18/23 10/19/23 Range/Units 14:56 05:28 Total Bilirubin 0.4 0.4 (0.0-1.0) mg/dL Direct Bilirubin 0.1 0.1 (0.0-0.5) mg/dL AST 21 21 (5-31) U/L ALT 62 H 51 H (0-31) U/L Alkaline Phosphatase 74 63 (39-117) U/L Albumin 4.3 3.7 (3.5-5.0) g/dL Urine 10/18/23 Range/Units 14:56 Urine Color Yellow Urine Appearance Clear Urine pH 6.0 (5.0-9.0) Ur Specific [place] 1.010 (1.005-1.025) Urine Protein Negative (Neg-Trace) mg/dL Urine Glucose (UA) Negative (Negative) mg/dL Assessment and Plan (1) Intractable abdominal pain: Status: Acute (2) Chronic pain syndrome: Status: Acute (3) Diarrhea: Status: Acute (4) Nausea & vomiting: Status: Acute Plan Most of the pt's complaints re abd pain and nausea are chronic and spanning over years. She also reports endoscopic work up done for this last year. Main reason for seeking medical attnetion this time was severity of R sided pain with nausea, decreased appetite and diarrhea x 2-3 weeks. Ddx include infectious gastroenteritis, PUD, symptomatic cholelithiasis, cannabis hyperemesis considered but typically not assoc with diarrhea. Plan: - Check GI panel, C Diff - HIDA scan - UGIS - Trial of topical capsaicin over the abd - Empiric omeprazole 20 BID - Records from [facility] to be reviewed to guide indication of repeat endoscopy if needed - Diet as tolerated Thank you for allowing me to participate in her care. Pls do not hesitate to reach out for questions or concerns. Procedures Date of Service Date of Service: 10/19/23
[2023-10-19] MEDS: Lactated Ringers 1,000 ML 80 ML IVCONT (13:55)
--- NOTE | 2023-10-19 14:18 | MHC.CM.PN ---
MORGAN delivered. Patient lives in a home w/ and children. Ambulates w/ cane, walker PRN. assists w/ ADL's PRN. No PCP. CM provided [facility] provider brochure. Patient will call to schedule appt and understands importance of establishing care w/ PCP. No HCP. CM provided education and offered assistance. Patient declined. DP: Goal is home, self care. to transport. CM will continue to follow.
[2023-10-19 15:17] VITALS: BP 119/53; PULSE 60; RESP 20; TEMP 36.2; O2SAT 95
[2023-10-19] MEDS: Omeprazole 20 MG CAPSULE.DR PO (15:46)
[2023-10-19 17:00] LABS: CDiff Gene PCR NEGATIVE (Negative)
[2023-10-19 20:07] VITALS: BP 104/52; PULSE 71; RESP 20; TEMP 36.2; O2SAT 97
[2023-10-19] MEDS: LORazepam 0.5 MG TABLET PO (21:20)
[2023-10-20 00:42] LABS: Amphetamine Screen Urine Not Detected (Not Detect); Barbiturates, Urine Not Detected (Not Detect); Benzodiazepines Screen Urine Not Detected (Not Detect); Buprenorphine Scr Not Detected (Not Detect); Cannabinoid Screen Urine POSITIVE (Not Detect); Cocaine Screen Urine Not Detected (Not Detect); Fentanyl, urine Not Detected (Not Detect); Methadone Screen, Urine Positive (Not Detect); Opiate Screen Urine POSITIVE (Not Detect); Oxycodone Screen Urine Not Detected (Not Detect); Phencyclidine Screen Urine Not Detected (Not Detect)
[2023-10-20] MEDS: HYDROmorphone HCl 0.5 MG/0.5 ML SYRINGE IVPUSH ×6 (02:47→21:32)
[2023-10-20] MEDS: Lactated Ringers 1,000 ML 80 ML IVCONT ×2 (02:50→15:31)
[2023-10-20] MEDS: LORazepam 0.5 MG TABLET PO ×2 (04:45→10:35)
[2023-10-20 06:00] VITALS: BP 124/58; PULSE 75; RESP 18; TEMP 35.6; O2SAT 96
[2023-10-20 06:28] LABS: Hematocrit 38.3 % (37.0-47.0); Hemoglobin 13.3 g/dl (12.0-16.0); Mean Corpuscular HGB Conc 34.7 g/dl (31.0-35.0); Mean Corpuscular Hemoglobin 29.1 pg (27.0-33.0); Mean Corpuscular Volume 83.8 fL (80.0-98.0); Mean Platelet Volume 9.6 fL (9.4-12.3); Platelet Count 249 X10*3/uL (160-400); Red Blood Count 4.57 X10*6/uL (4.20-5.50); Red Cell Distribution Width 12.3 % (11.0-16.0); White Blood Count 6.9 X10*3/uL (4.8-10.8)
[2023-10-20 06:43] LABS: Anion Gap 12 (12-20); Blood Urea Nitrogen 6 mg/dL (9-16); Calcium 9.3 mg/dL (8.4-10.2); Carbon Dioxide 26 mmol/L (22-29); Chloride 107 mmol/L (96-108); Creatinine Clr Calc Pharmacy 115.1; Estimated Glomerular Filt Rate > 60; Glucose Random 108 mg/dL (60-115); Potassium 3.7 mmol/L (3.3-5.1); Sodium 141 mmol/L (135-145)
--- NOTE | 2023-10-20 07:11 | PC.NURSE ---
Pt informed me of a prolapsed uterus she has been suffering from for a couple months, and was hoping for a Gyno consult. Provider Zechariah made aware.
[2023-10-20 07:15] VITALS: BP 104/62; PULSE 60; RESP 16; TEMP 36.1; O2SAT 94
[2023-10-20] MEDS: 0.9 % Sodium Chloride Flush 3 ML SYRINGE IVFLUSH ×3 (09:17→21:34)
[2023-10-20] MEDS: Omeprazole 20 MG CAPSULE.DR PO (10:20)
[2023-10-20] MEDS: busPIRone HCl 5 MG TABLET 15 MG PO ×2 (10:20→19:21)
[2023-10-20] MEDS: Baclofen 10 MG TABLET PO (10:20)
[2023-10-20] MEDS: DULoxetine HCl 60 MG CAPSULE.DR PO (10:20)
[2023-10-20] MEDS: Gabapentin 400 MG CAPSULE 800 MG PO ×2 (10:20→19:22)
[2023-10-20] MEDS: DULoxetine HCl 30 MG CAPSULE.DR PO (10:20)
[2023-10-20] MEDS: cefTRIAXone sodium 1 GM in 0.9 % Sodium Chloride 50 ML IV (10:35)
[2023-10-20 11:10] LABS: Adenovirus F 40/41 Not Detected (Not Detect.); Astrovirus Not Detected (Not Detect.); Campylobacter Not Detected (Not Detect.); Cryptosporidium Not Detected (Not Detect.); Cyclospora cayetanensis Not Detected (Not Detect.); E. coli EAEC Not Detected (Not Detect.); E. coli EPEC Not Detected (Not Detect.); E. coli ETEC Not Detected (Not Detect.); E. coli STEC Not Detected (Not Detect.); Entamoeba histolytica Not Detected (Not Detect.); Giardia lamblia Not Detected (Not Detect.); Norovirus GI/GII Not Detected (Not Detect.); Plesiomonas shigelloides Not Detected (Not Detect.); Salmonella Not Detected (Not Detect.); Shigella sp./EIEC Not Detected (Not Detect.); Vibrio Not Detected (Not Detect.); Vibrio Cholerae Not Detected (Not Detect.); Yersinia enterocolitica Not Detected (Not Detect.)
[2023-10-20 11:11] LABS: Rotavirus A Not Detected (Not Detect.); Sapovirus Not Detected (Not Detect.)
--- NOTE | 2023-10-20 12:13 | P.PNIM_ITS ---
Subjective Subjective Date of Service: 10/20/23 Interval History: Seen and evaluated still complaining of Left sided back pain and RUQ pain, No fever or chills having nausea no other events Review of Systems Review of Systems: Yes all other systems are reviewed and are negative Physical Exam 2 Vital Signs: Vital Signs: Last Vital Signs Temp 97.0 F 10/20/23 07:15 Pulse 60 10/20/23 07:15 Resp 16 10/20/23 07:15 BP 104/62 10/20/23 07:15 Pulse Ox 94 10/20/23 07:15 O2 Del Method Room Air 10/20/23 07:15 BMI result Body Mass Index 29.9 Const: Other: Constitutional : Awake, interactive, not in distress Neck : Normal inspection, Supple Cardiovascular : RRR, no JVP, no lower extremity edema Respiratory : good bilateral air entry, no crackles, wheezes or rhonchi Gastrointestinal: soft, lax, Normal bowel sounds, RUQ tenderness , Left back\loin tenderness; superficial, no surgical signs Skin : Warm, Dry Neurological : Alert & oriented x3, No focal deficit Objective Data Active Medications Acetaminophen (Acetaminophen 325 Mg Tablet) 650 mg PO Q6H PRN PRN Reason: Pain, Mild (Pain Scale 1-3), fever or headache Albuterol Sulfate (Albuterol Sulfate 90 Mcg 8 Gm Inhaler) 2 puff INHALE RQ4H PRN PRN Reason: sob Buspirone HCl (Buspirone Hcl 5 Mg Tablet) 15 mg PO BID [facility] Last Admin: 10/20/23 10:20 Dose: 15 mg Documented By: TRISTON Calcium Carbonate (Calcium Carbonate 750 Mg Tab.Chew) 750 mg PO Q4H PRN PRN Reason: Heartburn Duloxetine HCl (Duloxetine Hcl 60 Mg Capsule.) 60 mg PO DAILY [facility] Last Admin: 10/20/23 10:20 Dose: 60 mg Documented By: TRISTON Duloxetine HCl (Duloxetine Hcl 30 Mg Capsule.Dr) 30 mg PO DAILY [facility] Last Admin: 10/20/23 10:20 Dose: 30 mg Documented By: TRISTON Famotidine (Famotidine 20 Mg Tablet) 20 mg PO BID [facility] Gabapentin (Gabapentin 400 Mg Capsule) 800 mg PO TID [facility] Last Admin: 10/20/23 10:20 Dose: 800 mg Documented By: TRISTON Hydromorphone HCl (Hydromorphone Hcl 0.5 Mg/0.5 Ml Syringe) 0.5 mg IVPUSH Q4H PRN; Protocol PRN Reason: severe pain Last Admin: 10/20/23 09:14 Dose: 0.5 mg Documented By: TRISTON Lactated Ringer's (Lr) 1,000 mls @ 80 mls/hr IVCONT .[id number] [facility] Last Admin: 10/20/23 02:50 Dose: 80 mls/hr Documented By: TRAV Ceftriaxone Sodium 1 gm/ (Sodium Chloride) 50 mls @ 100 mls/hr IV Q24H [facility] Last Infusion: 10/20/23 11:19 Dose: Infused Documented By: TRISTON Lorazepam (Lorazepam 0.5 Mg Tablet) 0.5 mg PO QID PRN PRN Reason: Anxiety Last Admin: 10/20/23 10:35 Dose: 0.5 mg Documented By: TRISTON Magnesium Hydroxide (Milk Of Magnesia 30 Ml Oral.Susp) 30 ml PO DAILY PRN PRN Reason: Constipation Melatonin (Melatonin 3 Mg Tablet) 6 mg PO BEDTIME PRN PRN Reason: Insomnia Methocarbamol (Methocarbamol 500 Mg Tablet) 1,000 mg PO TID [facility] Omeprazole (Omeprazole 20 Mg Capsule.Dr) 20 mg PO BID@0630,1630 [facility] Ondansetron HCl (Ondansetron Hcl 4 Mg/2 Ml Vial) 4 mg IVPUSH Q6H PRN PRN Reason: Nausea and Vomiting Last Admin: 10/19/23 22:50 Dose: 4 mg Documented By: TRAV Sodium Chloride (0.9 % Sodium Chloride Flush 3 Ml Syringe) 3 ml IVFLUSH QSHIFT [facility] Last Admin: 10/20/23 09:17 Dose: 3 ml Documented By: TRISTON Labs 10/20/23 06:04 10/20/23 06:04 Labs: Laboratory Results - last 24 hr 10/19/23 10/20/23 10/20/23 15:50 06:04 Unknown MCV 83.8 MCH 29.1 MCHC 34.7 RDW 12.3 Plt Count 249 MPV 9.6 Absolute Nucleated RBC 0.000 Nucleated RBC % (auto) 0.0 Anion Gap 12 Estim Creat Clear Calc 115.1 Estimated GFR > 60 Random Glucose 108 Calcium 9.3 Stl C. cayetanensis PCR Not Detected Stool Rotavirus A PCR Not Detected Stl Adenov F 40/41 PCR Not Detected Stool Astrovirus (PCR) Not Detected Stool Campylobacter PCR Not Detected Stool Cryptosporidium PCR Not Detected Stl Sh Tox Pr E STEC PCR Not Detected Stool E coli O157 PCR Not applicable Stl Enterotoxigenic E PCR Not Detected Stool EPEC (PCR) Not Detected Stool EAEC (PCR) Not Detected Stl E. histolytica PCR Not Detected Stool Giardia Lamblia PCR Not Detected Stl P. shigelloides PCR Not Detected Stool Salmonella PCR Not Detected Stool Sapovirus (PCR) Not Detected Stl Shigella/EIEC PCR Not Detected St Y.enterocolitica PCR Not Detected Stool Vibrio (PCR) Not Detected Stl Vibrio cholerae PCR Not Detected Stl Norovirus GI/GII PCR Not Detected Urine Opiates Screen POSITIVE H Ur Buprenorphine Scrn Not Detected Ur Oxycodone Screen Not Detected Urine Methadone Screen Positive H Urine Fentanyl Screen Not Detected Ur Barbiturates Screen Not Detected Ur Phencyclidine Scrn Not Detected Ur Amphetamines Screen Not Detected U Benzodiazepines Scrn Not Detected Urine Cocaine Screen Not Detected U Marijuana (THC) Screen POSITIVE H C. difficile Tox B Gene NEGATIVE Assessment and Plan (1) Nausea & vomiting: Status: Acute (2) Intractable abdominal pain: Status: Acute (3) Muscle spasm of back: Status: Acute Plan 33[facility], melanoma s/p excision 2018, splenomegaly, fibromyalgia, mild intermittent asthma, chronic pain syndrome, mood disorder, interstitial cystitis presented with abdominal pain Intractable abdominal pain CT abdomen showing enlarged RUQ LN which seems to be chronic Empirical Ceftriaxone for now given reported fever and CVA tenderness Muscle relaxant change to Methocarbamol GI input appreciated; GI Series, HIDA scan, old records GI series concerning for possible PUD; start Omeprazole and Famotidine, EGD Sunday HIDA scan normal PRN dilaudid for pain Zofran for nausea IVF for now Mild intermittent asthma Albuterol as needed Uterine prolapse Discussed with dr Hudson, Outpatient follow up. Low risk for DVT early ambulation Full code The patient will need overnight hospital stay for evaluation of abdominal pain and decrease PO intake with nausea pending EGD study on Sunday. Quality Stroke Does the patient have a stroke diagnosis?: No VTE Prior VTE?: No VTE Risk Level:: Medical - low VTE Device Contraindication: Treatment Not Indicated VTE Drug Contraindication: Treatment Not Indicated
[2023-10-20] MEDS: Famotidine 20 MG TABLET PO ×2 (12:20→19:23)
[2023-10-20] MEDS: methocarbamoL 500 MG TABLET 1000 MG PO ×2 (12:20→19:22)
[2023-10-20] MEDS: Pantoprazole Sodium 40 MG/10 ML VIAL IVPUSH (15:32)
[2023-10-20 15:34] VITALS: BP 100/58; PULSE 62; RESP 16; TEMP 36.6; O2SAT 94
[2023-10-20] MEDS: Lidocaine 5 % Ointment 35 GM 1 APPL TOPICAL (17:03)
[2023-10-20 17:14] VITALS: BP 116/61; PULSE 81
[2023-10-20] MEDS: Milk of Magnesia 30 ML ORAL.SUSP PO (19:21)
[2023-10-20 21:28] VITALS: BP 113/66; PULSE 78; RESP 18; TEMP 36.1; O2SAT 96
[2023-10-20] MEDS: ondansetron HCL 4 MG/2 ML VIAL IVPUSH (23:08)
[2023-10-21] MEDS: HYDROmorphone HCl 0.5 MG/0.5 ML SYRINGE IVPUSH ×3 (01:45→13:21)
[2023-10-21] MEDS: methocarbamoL 750 MG TABLET PO (02:04)
[2023-10-21 04:00] VITALS: BP 130/63; PULSE 75; RESP 18; TEMP 36.2; O2SAT 96
[2023-10-21] MEDS: Lactated Ringers 1,000 ML 80 ML IVCONT ×2 (04:13→17:14)
[2023-10-21] MEDS: Pantoprazole Sodium 40 MG/10 ML VIAL IVPUSH ×2 (05:57→15:31)
[2023-10-21] MEDS: LORazepam 0.5 MG TABLET PO ×3 (06:15→21:46)
[2023-10-21 06:21] LABS: Anion Gap 11 (12-20); Blood Urea Nitrogen 5 mg/dL (9-16); Carbon Dioxide 26 mmol/L (22-29); Chloride 106 mmol/L (96-108); Estimated Glomerular Filt Rate > 60; Glucose Random 138 mg/dL (60-115); Potassium 3.4 mmol/L (3.3-5.1); Sodium 140 mmol/L (135-145)
[2023-10-21 07:13] VITALS: BP 117/61; PULSE 57; RESP 14; TEMP 36.4; O2SAT 96
[2023-10-21] MEDS: Gabapentin 400 MG CAPSULE 800 MG PO ×3 (09:44→20:26)
[2023-10-21] MEDS: DULoxetine HCl 60 MG CAPSULE.DR PO (09:44)
[2023-10-21] MEDS: DULoxetine HCl 30 MG CAPSULE.DR PO (09:44)
[2023-10-21] MEDS: methocarbamoL 500 MG TABLET 1000 MG PO ×3 (09:44→20:29)
[2023-10-21] MEDS: cefTRIAXone sodium 1 GM in 0.9 % Sodium Chloride 50 ML IV (09:45)
[2023-10-21] MEDS: Famotidine 20 MG TABLET PO ×2 (09:45→20:28)
[2023-10-21] MEDS: busPIRone HCl 5 MG TABLET 15 MG PO ×2 (09:45→20:30)
[2023-10-21] MEDS: Lidocaine 5 % Ointment 35 GM 1 APPL TOPICAL (10:32)
[2023-10-21] MEDS: Milk of Magnesia 30 ML ORAL.SUSP PO (11:29)
--- NOTE | 2023-10-21 13:01 | HO.PM.IMPN ---
Subjective Subjective Date of Service: 10/21/23 Interval History: Seen and evaluated still complaining RUQ pain, Lt sided muscle pain improved No fever or chills having nausea but tolerating small amount of diet no other events Review of Systems Review of Systems: Yes all other systems are reviewed and are negative Physical Exam Vital Signs: Vital Signs: Last Vital Signs Temp 97.5 F 10/21/23 07:13 Pulse 57 10/21/23 07:13 Resp 14 10/21/23 07:13 BP 117/61 10/21/23 07:13 Pulse Ox 96 10/21/23 07:13 O2 Del Method Room Air 10/21/23 04:00 BMI result Body Mass Index 29.9 Const: Other: Constitutional : Awake, interactive, not in distress Neck : Normal inspection, Supple Cardiovascular : RRR, no JVP, no lower extremity edema Respiratory : good bilateral air entry, no crackles, wheezes or rhonchi Gastrointestinal: soft, lax, Normal bowel sounds, RUQ tenderness , Left back\loin less tenderness; superficial, no surgical signs Skin : Warm, Dry Neurological : Alert & oriented x3, No focal deficit Objective Data Active Medications Acetaminophen (Acetaminophen 325 Mg Tablet) 650 mg PO Q6H PRN PRN Reason: Pain, Mild (Pain Scale 1-3), fever or headache Albuterol Sulfate (Albuterol Sulfate 90 Mcg 8 Gm Inhaler) 2 puff INHALE RQ4H PRN PRN Reason: sob Buspirone HCl (Buspirone Hcl 5 Mg Tablet) 15 mg PO BID [facility] Last Admin: 10/21/23 09:45 Dose: 15 mg Documented By: TRISTON Calcium Carbonate (Calcium Carbonate 750 Mg Tab.Chew) 750 mg PO Q4H PRN PRN Reason: Heartburn Duloxetine HCl (Duloxetine Hcl 60 Mg Capsule.) 60 mg PO DAILY [facility] Last Admin: 10/21/23 09:44 Dose: 60 mg Documented By: TRISTON Duloxetine HCl (Duloxetine Hcl 30 Mg Capsule.) 30 mg PO DAILY [facility] Last Admin: 10/21/23 09:44 Dose: 30 mg Documented By: TRISTON Famotidine (Famotidine 20 Mg Tablet) 20 mg PO BID [facility] Last Admin: 10/21/23 09:45 Dose: 20 mg Documented By: TRISTON Gabapentin (Gabapentin 400 Mg Capsule) 800 mg PO TID [facility] Last Admin: 10/21/23 09:44 Dose: 800 mg Documented By: TRISTON Hydromorphone HCl (Hydromorphone Hcl 0.5 Mg/0.5 Ml Syringe) 0.5 mg IVPUSH Q4H PRN; Protocol PRN Reason: severe pain Last Admin: 10/21/23 10:31 Dose: 0.5 mg Documented By: TRISTON Lactated Ringer's (Lr) 1,000 mls @ 80 mls/hr IVCONT .[id number] [facility] Last Admin: 10/21/23 04:13 Dose: 80 mls/hr Documented By: TRAV Ceftriaxone Sodium 1 gm/ (Sodium Chloride) 50 mls @ 100 mls/hr IV Q24H [facility] Last Infusion: 10/21/23 10:39 Dose: Infused Documented By: TRISTON Lidocaine (Lidocaine 5 % Ointment 35 Gm) 1 appl TOPICAL Q6H PRN; Protocol PRN Reason: Pain, Mild (Pain Scale 1-3) Last Admin: 10/21/23 10:32 Dose: 1 appl Documented By: TRISTON Lorazepam (Lorazepam 0.5 Mg Tablet) 0.5 mg PO QID PRN PRN Reason: Anxiety Last Admin: 10/21/23 06:15 Dose: 0.5 mg Documented By: TRAV Magnesium Hydroxide (Milk Of Magnesia 30 Ml Oral.Susp) 30 ml PO DAILY PRN PRN Reason: Constipation Last Admin: 10/21/23 11:29 Dose: 30 ml Documented By: TRISTON Melatonin (Melatonin 3 Mg Tablet) 6 mg PO BEDTIME PRN PRN Reason: Insomnia Methocarbamol (Methocarbamol 500 Mg Tablet) 1,000 mg PO TID [facility] Last Admin: 10/21/23 09:44 Dose: 1,000 mg Documented By: TRISTON Ondansetron HCl (Ondansetron Hcl 4 Mg/2 Ml Vial) 4 mg IVPUSH Q6H PRN PRN Reason: Nausea and Vomiting Last Admin: 10/20/23 23:08 Dose: 4 mg Documented By: TRAV Pantoprazole Sodium (Pantoprazole Sodium 40 Mg/10 Ml Vial) 40 mg IVPUSH BID@0630,1630 [facility] Last Admin: 10/21/23 05:57 Dose: 40 mg Documented By: TRAV Sodium Chloride (0.9 % Sodium Chloride Flush 3 Ml Syringe) 3 ml IVFLUSH QSHIFT [facility] Last Admin: 10/21/23 09:45 Dose: Not Given Documented By: TRISTON Non-Admin Reason: IV Running Labs 10/20/23 06:04 10/21/23 05:49 Labs: Laboratory Results - last 24 hr 10/21/23 05:49 Hold Purple Top SEE NOTE Anion Gap 11 L Estim Creat Clear Calc 106.0 Estimated GFR > 60 Random Glucose 138 H Calcium 9.0 Assessment and Plan (1) Nausea & vomiting: Status: Acute (2) Intractable abdominal pain: Status: Acute (3) Muscle spasm of back: Status: Acute Plan 33F [facility], EDS, melanoma s/p excision 2019, splenomegaly, fibromyalgia, mild intermittent asthma, chronic pain syndrome, mood disorder, interstitial cystitis presented with abdominal pain Intractable abdominal pain Possibe PUD\GB problem CT abdomen showing enlarged RUQ LN which seems to be chronic Empirical Ceftriaxone for now given reported fever and CVA tenderness Muscle relaxant change to Methocarbamol GI input appreciated; GI Series, HIDA scan, old records GI series concerning for possible PUD; start Omeprazole and Famotidine, EGD Sunday HIDA scan no obstruction but some abnormalities reported with emptying to get surgery eval PRN dilaudid for pain Zofran for nausea IVF for now Mild intermittent asthma Albuterol as needed Uterine prolapse Discussed with dr Hudson, Outpatient follow up. Low risk for DVT early ambulation Full code The patient will need overnight hospital stay for evaluation of abdominal pain and decrease PO intake with nausea pending EGD study and surgery evaluation. Quality Stroke Does the patient have a stroke diagnosis?: No VTE Prior VTE?: No VTE Risk Level:: Medical - low VTE Device Contraindication: Treatment Not Indicated VTE Drug Contraindication: Treatment Not Indicated
[2023-10-21] MEDS: polyethylene glycoL 3350 17 GM POWD.PACK PO (13:20)
[2023-10-21] MEDS: ondansetron HCL 4 MG/2 ML VIAL IVPUSH ×2 (14:24→20:26)
[2023-10-21 15:00] VITALS: BP 132/80; PULSE 85; RESP 20; TEMP 36.1; O2SAT 97
[2023-10-21] MEDS: HYDROmorphone HCl 0.5 MG/0.5 ML SYRINGE 1 MG IVPUSH ×3 (15:31→23:32)
--- NOTE | 2023-10-21 18:33 | PM.CNGS ---
History of Present Illness Consult details Consult date: 10/21/23 Reason for consult: abdominal pain Requesting physician: Francisca Turpin Narrative: 33-year-old female patient presenting with complaints of abdominal pain mainly in the right upper quadrant of several months duration. Patient has a past history of Behcet Disease, malignant melanoma of the abdomen and back excised in 2019, splenomegaly, fibromyalgia, asthma, chronic pain syndrome, mood disorder and interstitial cystitis. Pain seems to be increasing over the past 3 weeks and associated with a constant right upper quadrant pain with elevation of the pain after eating. The pain did seem to improve slightly after having a bowel movement. She reports that her bowel movements have been unusual, occasionally oily and pencil thin. She reports nausea, anorexia, and vomiting. She underwent extensive workup was found to have a normal WBC a slightly elevated ALT but otherwise normal liver bilirubin level. Both CT and ultrasound were negative for cholelithiasis, wall thickening, pericholecystic fluid or common bile duct dilatation. A HIDA scan however revealed an abnormally high gallbladder ejection fraction of 88%, which is above the normal range of 35-80%. Surgical consultation was requested for management of this biliary hyperkinesia. Review of Systems Review of Systems: Yes all other systems are reviewed and are negative Constitutional: Constitutional: Denies chills, Denies fever(s), Denies headache(s), Reports poor appetite and Denies weakness ENT: Denies headache(s) Cardiovascular: Cardiovascular: Denies chest pain, Denies irregular heart rhythm, Denies palpitations and Denies dyspnea Respiratory: Respiratory: Denies cough, Denies excessive phlegm production and Denies dyspnea Gastrointestinal: Gastrointestinal: Reports abdominal pain, Denies bloating, Reports change in bowel habits, Denies constipation, Denies heartburn, Reports diarrhea, Reports nausea and Reports vomiting Genitourinary: Genitourinary: Denies urinary frequency Musculoskeletal: Musculoskeletal: Denies back pain, Denies muscle weakness and Denies numbness Integumentary/Breasts: Skin/Breast: Denies changing lesions and Denies unusual bruising Neurologic: Denies headache(s), Denies numbness, Denies paresthesias and Denies weakness Psychiatric: Psychiatric: Denies anxiety and Denies depression Endocrine: Endocrine: Denies palpitations Hematologic/Lymphatic: Hematologic/Lymphatic: Reports lymphadenopathy (By CT) [facility] Past Medical History Medical History Other specified disorders of bladder 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] Personal history of malignant melanoma of skin Muscle spasm of back Chronic pain syndrome Generalized anxiety disorder Major depressive disorder, single episode, in full remission Social History Social History Household Members: Spouse and Family Housing: House Do you presently have visiting nurse or other home services: No Alcohol intake: current Alcohol intake frequency: a few times a week Patient Tobacco Use Status: Former Tobacco user Tobacco use type: Cigarette Smoked in Last 30 Days: No e-Cigarette/Vaping Use: Currently Using Patient Interested in Nicotine Replacement: No Patient Given Instructions on How to Stop Smoking: No Date Education Initiated: 10/21/23 Second Hand Smoke Exposure: No Use of substances other than those prescribed or required for medical reasons: No Substance Use Type: Other and Caffiene Currently Displaying Signs/Symptoms of Drug Intoxication Withdrawal: No Any prior treatment program specific to substance use: No Have you been hit, kicked, punched, or otherwise hurt by someone within the past year? If so, by whom?: No Do you feel safe in your current relationship?: Yes Is there a partner from a previous relationship who is making you feel unsafe now?: No Are you made to feel afraid or neglected: No Advance Directives: No Advance Directives Information Provided: Yes Do you have a plan to hurt others: No Plan Recently lost weight without trying: No Eating poorly because of decreased appetite: No Nutrition Risks: Acute nausea or vomiting x1 week and Poor intake 0-25% >4 days Patient : No : No Poor oral hygiene: No service: No Meds Allergies Allergy/AdvReac Type Severity Reaction Status Date / Time erythromycin base Allergy Unknown UNKNOWN Verified 10/18/23 14:40 [ERYTHROMYCIN BASE] latex [LATEX] Allergy Unknown UNKNOWN Verified 10/18/23 14:40 Adhesive tape Allergy Unknown Unknown Uncoded 10/18/23 14:40 Erthromycin Allergy Unknown Unknown Uncoded 10/18/23 14:40 Latex Allergy Unknown Unknown Uncoded 10/18/23 14:40 Active Medications: Current Medications Acetaminophen (Acetaminophen 325 Mg Tablet) 650 mg PO Q6H PRN PRN Reason: Pain, Mild (Pain Scale 1-3), fever or headache Albuterol Sulfate (Albuterol Sulfate 90 Mcg 8 Gm Inhaler) 2 puff INHALE RQ4H PRN PRN Reason: sob Buspirone HCl (Buspirone Hcl 5 Mg Tablet) 15 mg PO BID [facility] Last Admin: 10/21/23 09:45 Dose: 15 mg Calcium Carbonate (Calcium Carbonate 750 Mg Tab.Chew) 750 mg PO Q4H PRN PRN Reason: Heartburn Duloxetine HCl (Duloxetine Hcl 60 Mg Capsule.Dr) 60 mg PO DAILY [facility] Last Admin: 10/21/23 09:44 Dose: 60 mg Duloxetine HCl (Duloxetine Hcl 30 Mg Capsule.Dr) 30 mg PO DAILY [facility] Last Admin: 10/21/23 09:44 Dose: 30 mg Famotidine (Famotidine 20 Mg Tablet) 20 mg PO BID [facility] Last Admin: 10/21/23 09:45 Dose: 20 mg Gabapentin (Gabapentin 400 Mg Capsule) 800 mg PO TID [facility] Last Admin: 10/21/23 14:24 Dose: 800 mg Hydromorphone HCl (Hydromorphone Hcl 0.5 Mg/0.5 Ml Syringe) 1 mg IVPUSH Q4H PRN; Protocol PRN Reason: Pain, Severe (Pain Scale 7-10) Last Admin: 10/21/23 15:31 Dose: 1 mg Lactated Ringer's (Lr) 1,000 mls @ 80 mls/hr IVCONT .[id number] [facility] Last Admin: 10/21/23 17:14 Dose: 80 mls/hr Lidocaine (Lidocaine 5 % Ointment 35 Gm) 1 appl TOPICAL Q6H PRN; Protocol PRN Reason: Pain, Mild (Pain Scale 1-3) Last Admin: 10/21/23 10:32 Dose: 1 appl Lorazepam (Lorazepam 0.5 Mg Tablet) 0.5 mg PO QID PRN PRN Reason: Anxiety Last Admin: 10/21/23 13:21 Dose: 0.5 mg Magnesium Hydroxide (Milk Of Magnesia 30 Ml Oral.Susp) 30 ml PO DAILY PRN PRN Reason: Constipation Last Admin: 10/21/23 11:29 Dose: 30 ml Melatonin (Melatonin 3 Mg Tablet) 6 mg PO BEDTIME PRN PRN Reason: Insomnia Methocarbamol (Methocarbamol 500 Mg Tablet) 1,000 mg PO TID [facility] Last Admin: 10/21/23 14:24 Dose: 1,000 mg Ondansetron HCl (Ondansetron Hcl 4 Mg/2 Ml Vial) 4 mg IVPUSH Q6H PRN PRN Reason: Nausea and Vomiting Last Admin: 10/21/23 14:24 Dose: 4 mg Pantoprazole Sodium (Pantoprazole Sodium 40 Mg/10 Ml Vial) 40 mg IVPUSH BID@0630,1630 [facility] Last Admin: 10/21/23 15:31 Dose: 40 mg Polyethylene Glycol (Polyethylene Glycol 3350 17 Gm Powd.Pack) 17 gm PO DAILY [facility] Last Admin: 10/21/23 13:20 Dose: 17 gm Psyllium Hydrophilic Mucilloid (Psyllium Seed 3.7 Gm Packet) 3.7 gm PO BEDTIME [facility] Sodium Chloride (0.9 % Sodium Chloride Flush 3 Ml Syringe) 3 ml IVFLUSH QSHIFT [facility] Last Admin: 10/21/23 15:36 Dose: Not Given Home Medications ?Medication ?Instructions ?Recorded ?Confirmed ?Last Taken ?Type duloxetine 30 mg capsule,delayed 30 mg PO DAILY 08/04/22 10/18/23 10/18/23 History release lorazepam 0.5 mg tablet 0.5 mg PO QID PRN Anxiety 08/04/22 10/18/23 10/18/23 History acetaminophen 500 mg tablet 1,000 mg PO Q6-8H PRN Pain 10/18/23 10/18/23 Unknown History (Tylenol Extra Strength) baclofen 10 mg tablet 10 mg PO TID 10/18/23 10/18/23 10/18/23 History buspirone 15 mg tablet 15 mg PO BID 10/18/23 10/18/23 10/18/23 History colchicine 0.6 mg tablet 0.6 mg DAILY 10/18/23 10/18/23 10/18/23 History dextroamphetamine-amphetamine 10 10 mg PO DAILY@1200 PRN attention 10/18/23 10/18/23 10/18/23 History mg tablet dextroamphetamine-amphetamine 10 20 mg PO DAILY 10/18/23 10/18/23 10/18/23 History mg tablet duloxetine 60 mg capsule,delayed 60 mg PO DAILY 10/18/23 10/18/23 10/18/23 History release gabapentin 800 mg tablet 800 mg PO TID 0910/18/23 10/18/23 History ibuprofen 200 mg tablet 400 mg PO Q6-8H PRN Pain 10/18/23 10/18/23 Unknown History ketamine 100 mg sublingual dennise 60 mg sublingual DAILY 10/18/23 10/18/23 Unknown History mupirocin 2 % topical ointment 1 appl topical BID PRN Rash 10/18/23 10/18/23 Unknown History Physical Exam Vital Signs: Vital Signs: Last Vital Signs Temp 97.0 F 10/21/23 15:00 Pulse 85 10/21/23 15:00 Resp 20 10/21/23 15:00 BP 132/80 10/21/23 15:00 Pulse Ox 97 10/21/23 15:00 O2 Del Method Room Air 10/21/23 15:00 BMI result Body Mass Index 29.9 Const: General: cooperative and no acute distress Nutritional Appearance: well nourished Orientation/consciousness: patient oriented x3 Limitations: no limitations HEENT: Head: Yes normocephalic and Yes atraumatic Ears: hearing grossly normal bilaterally Resp: Effort & Inspection: normal respiratory effort, no audible wheezes, no cough and no respiratory distress Cardio: Jugular venous distension: no JVD GI: Inspection: Yes normal to inspection Palpation (GI): Soft to palpation, Tenderness to palpation present (GI) in the RUQ and Ortega's sign positive; with no rebound tenderness and Rovsing's sign negative, no guarding, not rigid and No hepatosplenomegaly present Percussion: Yes normal to percussion Rectal Exam - Female: deferred Skin: Other: Warm, dry, no rash Neuro: General: patient oriented x3 Extrem: General: Yes no clubbing, cyanosis or edema Results Labs 10/20/23 06:04 10/21/23 05:49 Labs: Abnormal lab results 10/21/23 Range/Units 05:49 Anion Gap 11 L (12-20) BUN 5 L (9-16) mg/dL Random Glucose 138 H (60-115) mg/dL BMP 10/21/23 05:49 Sodium 140 Potassium 3.4 Chloride 106 Carbon Dioxide 26 BUN 5 L Creatinine 0.76 Calcium 9.0 Urine 10/18/23 Range/Units 14:56 Urine Color Yellow Urine Appearance Clear Urine pH 6.0 (5.0-9.0) Ur Specific [place] 1.010 (1.005-1.025) Urine Protein Negative (Neg-Trace) mg/dL Urine Glucose (UA) Negative (Negative) mg/dL Urine Test NEGATIVE (NEGATIVE) All other labs normal. Imaging Additional studies: CT abdomen and pelvis: Mesenteric lymphadenopathy HIDA scan: Assessment and Plan (1) Biliary dyskinesia: Status: Acute Plan 33-year-old female patient with persistent abdominal pain in the right upper quadrant found to have a negative CT and ultrasound for cholelithiasis. CT was positive for multiple enlarged lymph nodes along the right colon mesentery. HIDA scan however was positive for biliary hyperkinesia with an ejection fraction of 88%. It is difficult to know if all her symptoms could be answered by this biliary hyperkinesia. The patient is very eager to proceed to a laparoscopic cholecystectomy but understands that it is certainly possible that she continues to have abdominal pain following this procedure. After discussion of the procedure, risks, and alternatives, she consents to a laparoscopic or possible open cholecystectomy. She will be added onto the operative schedule for tomorrow. Procedures Date of Service Date of Service: 10/21/23
[2023-10-21 19:45] VITALS: BP 141/69; PULSE 63; RESP 20; TEMP 36.3; O2SAT 95
[2023-10-21] MEDS: Psyllium seed 3.7 GM PACKET PO (20:29)
[2023-10-21] MEDS: 0.9 % Sodium Chloride Flush 3 ML SYRINGE IVFLUSH (20:30)
[2023-10-22] VITALS (16 sets, daily range): BP systolic 110–149; BP diastolic 57–83; PULSE 50–67; RESP 14–20; TEMP 36–36.9; O2SAT 95–100
--- NOTE | 2023-10-22 | ECG_ITS ---
Test Reason : arrhythmia, ? LVH Blood Pressure : / mmHG Vent. Rate : 054 BPM Atrial Rate : 054 BPM P-R Int : 144 ms QRS Dur : 092 ms QT Int : 474 ms P-R-T Axes : 001 -22 025 degrees QTc Int : 449 ms Sinus bradycardia Otherwise normal ECG When compared with ECG of 26-OCT-2021 13:37, QT has lengthened Heart rate has increased Referred By: Kaya Bush Electronically Signed By:BROOKLYN STRAUSS
[2023-10-22] MEDS: Lactated Ringers 1,000 ML 80 ML IVCONT ×2 (04:55→23:42)
[2023-10-22] MEDS: HYDROmorphone HCl 0.5 MG/0.5 ML SYRINGE 1 MG IVPUSH ×5 (05:36→23:12)
[2023-10-22] MEDS: Pantoprazole Sodium 40 MG/10 ML VIAL IVPUSH ×2 (05:36→17:45)
[2023-10-22] MEDS: cefoTEtan disodium 2 GM in 0.9 % Sodium Chloride 50 ML IV (06:18)
[2023-10-22 06:41] LABS: Anion Gap 12 (12-20); Blood Urea Nitrogen 4 mg/dL (9-16); Calcium 8.8 mg/dL (8.4-10.2); Carbon Dioxide 25 mmol/L (22-29); Chloride 108 mmol/L (96-108); Creatinine Clr Calc Pharmacy 111.9; Estimated Glomerular Filt Rate > 60; Glucose Random 83 mg/dL (60-115); Potassium 3.9 mmol/L (3.3-5.1); Sodium 141 mmol/L (135-145)
[2023-10-22] MEDS: Gabapentin 400 MG CAPSULE 800 MG PO ×3 (07:37→20:00)
[2023-10-22] MEDS: methocarbamoL 500 MG TABLET 1000 MG PO ×3 (07:37→20:00)
[2023-10-22] MEDS: DULoxetine HCl 60 MG CAPSULE.DR PO (07:37)
[2023-10-22] MEDS: Famotidine 20 MG TABLET PO ×2 (07:37→20:00)
[2023-10-22] MEDS: busPIRone HCl 5 MG TABLET 15 MG PO ×2 (07:37→20:00)
[2023-10-22] MEDS: DULoxetine HCl 30 MG CAPSULE.DR PO (07:37)
[2023-10-22] MEDS: 0.9 % Sodium Chloride Flush 3 ML SYRINGE IVFLUSH ×2 (07:38→19:55)
--- NOTE | 2023-10-22 08:27 | P.CONAN_ITS ---
HPI - Anesthesia Eval Consult details Narrative: 33 yo female patient for Laparoscopic Cholecystectomy PMFSH Active Problems Active Problems: All Active Problems Biliary dyskinesia (Acute) Nausea & vomiting (Acute) Diarrhea (Acute) Intractable abdominal pain (Acute) Cervicalgia (Acute) Bilateral hip pain (Acute) Muscle spasticity (Acute) Asthma (Acute)- only with respiratory illness Migraine headache (Acute) Muscle spasm of back (Acute) Chronic pain syndrome (Acute) Anxiety/Depression Denies AMA Past Medical History 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] Personal history of malignant melanoma of skin Muscle spasm of back Chronic pain syndrome Generalized anxiety disorder Major depressive disorder, single episode, in full remission Family History Family history of problems with anesthesia: No Surgical History Surgical History Hx of tonsillectomy History of appendectomy History of Problems with Anesthesia: No Social History Social History Household Members: Spouse and Family Housing: House Are you a primary childbirth and infant care teacher to a significant other at home: No Do you presently have visiting nurse or other home services: No Alcohol intake: current Alcohol intake frequency: a few times a week Patient Tobacco Use Status: Former Tobacco user Tobacco use type: Cigarette Smoked in Last 30 Days: No e-Cigarette/Vaping Use: Currently Using Patient Interested in Nicotine Replacement: No Patient Given Instructions on How to Stop Smoking: No Date Education Initiated: 10/21/23 Second Hand Smoke Exposure: No Use of substances other than those prescribed or required for medical reasons: Yes Substance Use Type: Other and Caffiene Substance Use Frequency: Weekly Currently Displaying Signs/Symptoms of Drug Intoxication Withdrawal: No Any prior treatment program specific to substance use: No Have you been hit, kicked, punched, or otherwise hurt by someone within the past year? If so, by whom?: No Do you feel safe in your current relationship?: Yes Is there a partner from a previous relationship who is making you feel unsafe now?: No Are you made to feel afraid or neglected: No Are you DNR?: No Advance Directives: No Advance Directives Information Provided: Yes Do you have a plan to hurt others: No Plan Recently lost weight without trying: No Eating poorly because of decreased appetite: No Nutrition Risks: No Nutritional Risk Patient : No : No Poor oral hygiene: No service: No Meds Allergies Allergy/AdvReac Type Severity Reaction Status Date / Time erythromycin base Allergy Unknown UNKNOWN Verified 10/22/23 08:18 [ERYTHROMYCIN BASE] latex [LATEX] Allergy Unknown UNKNOWN Verified 10/22/23 08:18 Adhesive tape Allergy Unknown Unknown Uncoded 10/18/23 14:40 Erthromycin Allergy Unknown Unknown Uncoded 10/18/23 14:40 Latex Allergy Unknown Unknown Uncoded 10/18/23 14:40 Active Medications: Current Medications Acetaminophen (Acetaminophen 325 Mg Tablet) 650 mg PO Q6H PRN PRN Reason: Pain, Mild (Pain Scale 1-3), fever or headache Albuterol Sulfate (Albuterol Sulfate 90 Mcg 8 Gm Inhaler) 2 puff INHALE RQ4H PRN PRN Reason: sob Buspirone HCl (Buspirone Hcl 5 Mg Tablet) 15 mg PO BID [facility] Last Admin: 10/22/23 07:37 Dose: 15 mg Calcium Carbonate (Calcium Carbonate 750 Mg Tab.Chew) 750 mg PO Q4H PRN PRN Reason: Heartburn Duloxetine HCl (Duloxetine Hcl 60 Mg Capsule.Dr) 60 mg PO DAILY [facility] Last Admin: 10/22/23 07:37 Dose: 60 mg Duloxetine HCl (Duloxetine Hcl 30 Mg Capsule.Dr) 30 mg PO DAILY [facility] Last Admin: 10/22/23 07:37 Dose: 30 mg Famotidine (Famotidine 20 Mg Tablet) 20 mg PO BID [facility] Last Admin: 10/22/23 07:37 Dose: 20 mg Gabapentin (Gabapentin 400 Mg Capsule) 800 mg PO TID [facility] Last Admin: 10/22/23 07:37 Dose: 800 mg Hydromorphone HCl (Hydromorphone Hcl 0.5 Mg/0.5 Ml Syringe) 1 mg IVPUSH Q4H PRN; Protocol PRN Reason: Pain, Severe (Pain Scale 7-10) Last Admin: 10/22/23 05:36 Dose: 1 mg Lactated Ringer's (Lr) 1,000 mls @ 80 mls/hr IVCONT .[id number] [facility] Last Admin: 10/22/23 04:55 Dose: 80 mls/hr Lidocaine (Lidocaine 5 % Ointment 35 Gm) 1 appl TOPICAL Q6H PRN; Protocol PRN Reason: Pain, Mild (Pain Scale 1-3) Last Admin: 10/21/23 10:32 Dose: 1 appl Lorazepam (Lorazepam 0.5 Mg Tablet) 0.5 mg PO QID PRN PRN Reason: Anxiety Last Admin: 10/21/23 21:46 Dose: 0.5 mg Magnesium Hydroxide (Milk Of Magnesia 30 Ml Oral.Susp) 30 ml PO DAILY PRN PRN Reason: Constipation Last Admin: 10/21/23 11:29 Dose: 30 ml Melatonin (Melatonin 3 Mg Tablet) 6 mg PO BEDTIME PRN PRN Reason: Insomnia Methocarbamol (Methocarbamol 500 Mg Tablet) 1,000 mg PO TID [facility] Last Admin: 10/22/23 07:37 Dose: 1,000 mg Ondansetron HCl (Ondansetron Hcl 4 Mg/2 Ml Vial) 4 mg IVPUSH Q6H PRN PRN Reason: Nausea and Vomiting Last Admin: 10/21/23 20:26 Dose: 4 mg Pantoprazole Sodium (Pantoprazole Sodium 40 Mg/10 Ml Vial) 40 mg IVPUSH BID@0630,1630 [facility] Last Admin: 10/22/23 05:36 Dose: 40 mg Polyethylene Glycol (Polyethylene Glycol 3350 17 Gm Powd.Pack) 17 gm PO DAILY [facility] Last Admin: 10/22/23 08:02 Dose: Not Given Psyllium Hydrophilic Mucilloid (Psyllium Seed 3.7 Gm Packet) 3.7 gm PO BEDTIME [facility] Last Admin: 10/21/23 20:29 Dose: 3.7 gm Sodium Chloride (0.9 % Sodium Chloride Flush 3 Ml Syringe) 3 ml IVFLUSH QSHIFT [facility] Last Admin: 10/22/23 07:38 Dose: 3 ml Home Medications ?Medication ?Instructions ?Recorded ?Confirmed ?Last Taken ?Type duloxetine 30 mg capsule,delayed 30 mg PO DAILY 08/04/22 10/18/23 10/18/23 History release lorazepam 0.5 mg tablet 0.5 mg PO QID PRN Anxiety 08/04/22 10/18/23 10/18/23 History acetaminophen 500 mg tablet 1,000 mg PO Q6-8H PRN Pain 10/18/23 10/18/23 Unknown History (Tylenol Extra Strength) baclofen 10 mg tablet 10 mg PO TID 10/18/23 10/18/23 10/18/23 History buspirone 15 mg tablet 15 mg PO BID 10/18/23 10/18/23 10/18/23 History colchicine 0.6 mg tablet 0.6 mg DAILY 10/18/23 10/18/23 10/18/23 History dextroamphetamine-amphetamine 10 10 mg PO DAILY@1200 PRN attention 10/18/23 10/18/23 10/18/23 History mg tablet dextroamphetamine-amphetamine 10 20 mg PO DAILY 10/18/23 10/18/23 10/18/23 History mg tablet duloxetine 60 mg capsule,delayed 60 mg PO DAILY 10/18/23 10/18/23 10/18/23 History release gabapentin 800 mg tablet 800 mg PO TID 10/18/23 10/18/23 10/18/23 History ibuprofen 200 mg tablet 400 mg PO Q6-8H PRN Pain 10/18/23 10/18/23 Unknown History ketamine 100 mg sublingual dennise 60 mg sublingual DAILY 10/18/23 10/18/23 Unknown History mupirocin 2 % topical ointment 1 appl topical BID PRN Rash 10/18/23 10/18/23 Unknown History Exam Height,Weight and Vital Signs: Height 5 ft 4 in Weight 78.925 kg Last Vital Signs Temp 97.1 F 10/22/23 08:19 Pulse 55 10/22/23 08:19 Resp 14 10/22/23 08:19 BP 135/83 10/22/23 08:19 Pulse Ox 97 10/22/23 08:19 O2 Del Method Room Air 10/22/23 08:19 Pertinent Lab Results Pertinent Lab Results: Laboratory Tests 10/18/23 10/19/23 10/19/23 14:56 05:28 15:50 WBC 8.6 7.9 RBC 4.86 4.60 Hgb 14.2 13.1 Hct 41.6 40.0 MCV 85.6 87.0 MCH 29.2 28.5 MCHC 34.1 32.8 RDW 12.6 12.6 Plt Count 262 245 MPV 9.4 9.7 Immature Gran % (Auto) 0.2 Neut % (Auto) 44.4 L Lymph % (Auto) 37.4 [place] % (Auto) 6.7 Eos % (Auto) 10.4 H Baso % (Auto) 0.9 Lymph # (Auto) 3.2 [place] # (Auto) 0.6 Eos # (Auto) 0.9 H Baso # (Auto) 0.1 Abs Immat Gran (auto) 0.02 Absolute Neuts (auto) 3.8 Absolute Nucleated RBC 0.000 0.000 Nucleated RBC % (auto) 0.0 0.0 ESR 4 Hold Purple Top Sodium 142 141 Potassium 3.6 3.4 Chloride 108 108 Carbon Dioxide 26 26 Anion Gap 12 10 L BUN 6 L 5 L Creatinine 0.76 0.67 Estim Creat Clear Calc 106.0 120.2 Estimated GFR > 60 > 60 Random Glucose 83 Fasting Glucose 79 Calcium 9.7 9.1 D Magnesium 1.8 1.8 Total Bilirubin 0.4 0.4 Direct Bilirubin 0.1 0.1 AST 21 21 ALT 62 H 51 H Alkaline Phosphatase 74 63 Lactate Dehydrogenase 197 C-Reactive Protein 0.10 Total Protein 6.6 5.6 L Albumin 4.3 3.7 Lipase 30 Urine Color Yellow Urine Appearance Clear Urine pH 6.0 Ur Specific [place] 1.010 Urine Protein Negative Urine Glucose (UA) Negative Urine Ketones Negative Urine Blood Negative Urine Nitrite Negative Ur Leukocyte Esterase Negative Urine Test NEGATIVE Stl C. cayetanensis PCR Not Detected Stool Rotavirus A PCR Not Detected Stl Adenov F 40/41 PCR Not Detected Stool Astrovirus (PCR) Not Detected Stool Campylobacter PCR Not Detected Stool Cryptosporidium PCR Not Detected Stl Sh Tox Pr E STEC PCR Not Detected Stool E coli O157 PCR Not applicable Stl Enterotoxigenic E PCR Not Detected Stool EPEC (PCR) Not Detected Stool EAEC (PCR) Not Detected Stl E. histolytica PCR Not Detected Stool Giardia Lamblia PCR Not Detected Stl P. shigelloides PCR Not Detected Stool Salmonella PCR Not Detected Stool Sapovirus (PCR) Not Detected Stl Shigella/EIEC PCR Not Detected St Y.enterocolitica PCR Not Detected Stool Vibrio (PCR) Not Detected Stl Vibrio cholerae PCR Not Detected Stl Norovirus GI/GII PCR Not Detected Urine Opiates Screen Not Detected Ur Buprenorphine Scrn Not Detected Ur Oxycodone Screen Not Detected Urine Methadone Screen Positive H Urine Fentanyl Screen Not Detected Ur Barbiturates Screen Not Detected Ur Phencyclidine Scrn Not Detected Ur Amphetamines Screen Not Detected U Benzodiazepines Scrn Not Detected Urine Cocaine Screen Not Detected U Marijuana (THC) Screen POSITIVE H Ethyl Alcohol < 10 C. difficile Tox B Gene NEGATIVE COVID-19 ([facility]) Negative COVID-19 Clin Com See Note 10/20/23 10/20/23 10/21/23 06:04 Unknown 05:49 WBC 6.9 RBC 4.57 Hgb 13.3 Hct 38.3 MCV 83.8 MCH 29.1 MCHC 34.7 RDW 12.3 Plt Count 249 MPV 9.6 Immature Gran % (Auto) Neut % (Auto) Lymph % (Auto) [place] % (Auto) Eos % (Auto) Baso % (Auto) Lymph # (Auto) [place] # (Auto) Eos # (Auto) Baso # (Auto) Abs Immat Gran (auto) Absolute Neuts (auto) Absolute Nucleated RBC 0.000 Nucleated RBC % (auto) 0.0 ESR Hold Purple Top SEE NOTE Sodium 141 140 Potassium 3.7 3.4 Chloride 107 106 Carbon Dioxide 26 26 Anion Gap 12 11 L BUN 6 L 5 L Creatinine 0.70 0.76 Estim Creat Clear Calc 115.1 106.0 Estimated GFR > 60 > 60 Random Glucose 108 138 H Fasting Glucose Calcium 9.3 9.0 Magnesium Total Bilirubin Direct Bilirubin AST ALT Alkaline Phosphatase Lactate Dehydrogenase C-Reactive Protein Total Protein Albumin Lipase Urine Color Urine Appearance Urine pH Ur Specific [place] Urine Protein Urine Glucose (UA) Urine Ketones Urine Blood Urine Nitrite Ur Leukocyte Esterase Urine Test Stl C. cayetanensis PCR Stool Rotavirus A PCR Stl Adenov F 40/41 PCR Stool Astrovirus (PCR) Stool Campylobacter PCR Stool Cryptosporidium PCR Stl Sh Tox Pr E STEC PCR Stool E coli O157 PCR Stl Enterotoxigenic E PCR Stool EPEC (PCR) Stool EAEC (PCR) Stl E. histolytica PCR Stool Giardia Lamblia PCR Stl P. shigelloides PCR Stool Salmonella PCR Stool Sapovirus (PCR) Stl Shigella/EIEC PCR St Y.enterocolitica PCR Stool Vibrio (PCR) Stl Vibrio cholerae PCR Stl Norovirus GI/GII PCR Urine Opiates Screen POSITIVE H Ur Buprenorphine Scrn Not Detected Ur Oxycodone Screen Not Detected Urine Methadone Screen Positive H Urine Fentanyl Screen Not Detected Ur Barbiturates Screen Not Detected Ur Phencyclidine Scrn Not Detected Ur Amphetamines Screen Not Detected U Benzodiazepines Scrn Not Detected Urine Cocaine Screen Not Detected U Marijuana (THC) Screen POSITIVE H Ethyl Alcohol C. difficile Tox B Gene COVID-19 ([facility]) COVID-19 Clin Com 10/22/23 05:23 WBC RBC Hgb Hct MCV MCH MCHC RDW Plt Count MPV Immature Gran % (Auto) Neut % (Auto) Lymph % (Auto) [place] % (Auto) Eos % (Auto) Baso % (Auto) Lymph # (Auto) [place] # (Auto) Eos # (Auto) Baso # (Auto) Abs Immat Gran (auto) Absolute Neuts (auto) Absolute Nucleated RBC Nucleated RBC % (auto) ESR Hold Purple Top SEE NOTE Sodium 141 Potassium 3.9 Chloride 108 Carbon Dioxide 25 Anion Gap 12 BUN 4 L Creatinine 0.72 Estim Creat Clear Calc 111.9 Estimated GFR > 60 Random Glucose 83 Fasting Glucose Calcium 8.8 Magnesium Total Bilirubin Direct Bilirubin AST ALT Alkaline Phosphatase Lactate Dehydrogenase C-Reactive Protein Total Protein Albumin Lipase Urine Color Urine Appearance Urine pH Ur Specific [place] Urine Protein Urine Glucose (UA) Urine Ketones Urine Blood Urine Nitrite Ur Leukocyte Esterase Urine Test Stl C. cayetanensis PCR Stool Rotavirus A PCR Stl Adenov F 40/41 PCR Stool Astrovirus (PCR) Stool Campylobacter PCR Stool Cryptosporidium PCR Stl Sh Tox Pr E STEC PCR Stool E coli O157 PCR Stl Enterotoxigenic E PCR Stool EPEC (PCR) Stool EAEC (PCR) Stl E. histolytica PCR Stool Giardia Lamblia PCR Stl P. shigelloides PCR Stool Salmonella PCR Stool Sapovirus (PCR) Stl Shigella/EIEC PCR St Y.enterocolitica PCR Stool Vibrio (PCR) Stl Vibrio cholerae PCR Stl Norovirus GI/GII PCR Urine Opiates Screen Ur Buprenorphine Scrn Ur Oxycodone Screen Urine Methadone Screen Urine Fentanyl Screen Ur Barbiturates Screen Ur Phencyclidine Scrn Ur Amphetamines Screen U Benzodiazepines Scrn Urine Cocaine Screen U Marijuana (THC) Screen Ethyl Alcohol C. difficile Tox B Gene COVID-19 ([facility]) COVID-19 Clin Com Airway Mallampati Class: II TM Dist: >3cm Neck ROM: Full Loose/Missing/Broken Teeth: Yes (Missing teeth back. Some broken teeth) Heart: RRR Lungs: CTAB Assessment and Plan Assessment Anesthesia Assessment: Anesthesia Plan Discussed and Chart Reviewed Final Anesthetic Review Family History of Problems with Anesthesia: No History of Problems with Anesthesia: No NPO: Yes ASA Class: II and Emergency Final Preanesthetic Review: No Changes in Pt Med Stat, Meds/Allgs Chart Reviewed, Consent Obtained/Reviewed and Anes Risks/Benef Reviewed Patient Risk: Intermediate Procedure Risk: Intermediate Assessment/Block/Sedation in SS: Assess/Block/Sedation-SS Anesthetic Plan Anesthetic Plan: GA Disposition: Standard PACU and Inp. Admit - Standard Bed
--- NOTE | 2023-10-22 08:45 | MHC.SHP ---
Pre-Procedural Eval Section A - 24 Hr Update-Section A only Date of Service: 10/22/23 The patient is an INPATIENT: Yes Changes since office visit: Yes Patient answered all questions; No Cold of Flu in the past 2 weeks, No New Medical Problems and No Changes in Medication The patient has been examined within 24 hours of the surgical procedure. The History & Physical has been completed within 30 days and I have reviewed it.: Yes Section B - Complete if H&P > 30 days Chief Complaint: Abd pain Allergies: Allergies Allergy/AdvReac Type Severity Reaction Status Date / Time erythromycin base Allergy Unknown UNKNOWN Verified 10/22/23 08:18 [ERYTHROMYCIN BASE] latex [LATEX] Allergy Unknown UNKNOWN Verified 10/22/23 08:18 Adhesive tape Allergy Unknown Unknown Uncoded 10/18/23 14:40 Erthromycin Allergy Unknown Unknown Uncoded 10/18/23 14:40 Latex Allergy Unknown Unknown Uncoded 10/18/23 14:40 Plan Diagnosis/Plan: Change (pt requested biopsy of mesenteric Lymph nodes seen on CT) I have reviewed the history and physical and performed a pertinent physical examination on my patient. No changes have occurred unless specified. Multiple enlarged lymph nodes noted in the mesentery of the right colon on CT. Patient has a prior history of malignant melanoma in his concerned about metastatic spread. She has requested biopsy of 1 of the enlarged lymph nodes. I reviewed the procedure, risks, and alternatives and she consents to a lymph node biopsy of the mesenteric lymph node to be performed during the laparoscopic cholecystectomy. Time Spent With Patient Time: Total time managing care of this patient today ____ minutes.
--- NOTE | 2023-10-22 10:12 | P.OP_ITS ---
Operative Note Operative Note Date of Service: 10/22/23 Narrative: Preoperative diagnosis: Biliary dyskinesia, mesenteric lymphadenopathy Postoperative diagnosis: Same Procedure: Laparoscopic cholecystectomy, biopsy mesenteric lymph node Surgeon: Gavin Burks MD Data Abstractor: ERIN Turk Anesthesia: General endotracheal Indications for procedure: 33-year-old female patient presenting with complaints of right upper quadrant abdominal pain of several months' duration. Workup with ultrasound and CT was negative for cholelithiasis however HIDA scan revealed an ejection fraction of 88% suggestive hyperkinesia. Patient was also noted to have enlarged mesenteric lymph nodes on CT and the patient has requested biopsy due to her previous history of malignant melanoma. Operative findings: Markedly enlarged lymph nodes in the right colon mesentery without melanotic changes. Normal appearing gallbladder without apparent gallstones Specimen: gallbladder Estimated blood loss: 2 mL Complications: None Procedure details: Patient was brought to the OR and placed in a supine position. After administering general anesthesia the patient's abdomen was prepped with ChloraPrep and draped in a sterile fashion. A surgical time-out was called the consent confirmed. Patient received preoperative antibiotics and Venodyne boots were in place. Local anesthesia consisting of 0.5% Sensorcaine without epinephrine was infiltrated in a periumbilical region. A 5 mm incision was made above the umbilicus in a transverse fashion. The Veress needle was then inserted while elevating abdominal cavity with towel clips. After positive drop test the abdomen was insufflated to a pressure of 15 mm of mercury. The Veress needle was then removed and a 5 mm trocar inserted. The camera was inserted in the abdomen explored. A 12 mm trocar was then placed in the epigastrium. Two 5 mm trocars placed in the right upper quadrant by the visual merchandising assistant. The patient was placed in reverse Trendelenburg positioning and rotated to the left. The gallbladder was grasped with the fundus and retracted cephalad by the visual merchandising assistant. The infundibulum was then grasped and retracted away from the liver bed, also by the visual merchandising assistant. The Dolphin dissected was then used by the surgeon to dissect the peritoneum off the infundibulum to reveal the junction with the cystic duct. Cystic artery was noted slightly medial and posterior to the cystic duct. After obtaining a critical view the cystic duct was doubly clipped and divided. The cystic artery was then doubly clipped and divided. The gallbladder was then dissected off the liver bed using electrocautery with an L hook. Hemostasis was assured all times using the electrocautery. When the gallbladder is completely dissected off the liver bed was placed in an Endo-Catch bag and brought out through the epigastric incision. The gallbladder was sent to pathology for further examination. Attention was then directed to the mesentery of the right colon. The patient was placed in a Trendelenburg position and rotated to the left. The mesentery of the right colon was examined and an area of possible lymphadenopathy identified just below the duodenal sweep. The mesentery was divided using LigaSure. A 2nd port was placed in the right lower quadrant. Dissection through the mesentery revealed a large beefy appearing lymph node. LigaSure was used to dissect the lymph node from the surrounding vascular tissue. Hemostasis was assured at all times with the LigaSure. The lymph node was removed and placed in the Endo-Catch bag brought out through the epigastric incision. The abdomen was then re-examined. The liver bed was irrigated and suctioned dry. No bleeding or bile leak could be identified. CO2 was then evacuated and all trocars removed. Skin was closed in all incisions using a subcuticular 4 0 Polysorb suture by both the surgeon and visual merchandising assistant. Sterile dressings consisting of Steri-Strips, 2 x 2 gauze, and Tegaderm were then applied. The patient tolerated the procedure well. Sponge instrument and needle counts reported as correct. The patient was transferred to PACU in stable condition.
[2023-10-22] MEDS: HYDROmorphone HCl 0.5 MG/0.5 ML SYRINGE 0.25 MG IVPUSH ×4 (10:43→10:58)
[2023-10-22] MEDS: fentaNYL citrate/PF 100 MCG/2 ML VIAL 25 MCG IVPUSH (11:13)
--- NOTE | 2023-10-22 11:27 | MHC.CM.PN ---
Per MD rounds patient not medically cleared for dc. CM will continue to follow.
--- NOTE | 2023-10-22 12:56 | P.PNIM_ITS ---
Subjective Subjective Date of Service: 10/22/23 Interval History: Seen and evaluated POD 0 post lap shayy reporting pain at surgical site no other events Review of Systems Review of Systems: Yes all other systems are reviewed and are negative Physical Exam 2 Vital Signs: Vital Signs: Last Vital Signs Temp 96.8 F 10/22/23 11:45 Pulse 53 10/22/23 11:45 Resp 18 10/22/23 11:45 BP 128/78 10/22/23 11:45 Pulse Ox 98 10/22/23 11:45 O2 Del Method Room Air 10/22/23 11:45 O2 Flow Rate 2 10/22/23 11:33 BMI result Body Mass Index 29.9 Const: Other: Constitutional : Awake, interactive, not in distress Neck : Normal inspection, Supple Cardiovascular : RRR, no JVP, no lower extremity edema Respiratory : good bilateral air entry, no crackles, wheezes or rhonchi Gastrointestinal: soft, lax, Normal bowel sounds, tenderness at surgery site , Left back\loin less tenderness significantly better; superficial, no surgical signs Skin : Warm, Dry Neurological : Alert & oriented x3, No focal deficit Objective Data Active Medications Acetaminophen (Acetaminophen 325 Mg Tablet) 650 mg PO Q6H PRN PRN Reason: Pain, Mild (Pain Scale 1-3), fever or headache Albuterol Sulfate (Albuterol Sulfate 90 Mcg 8 Gm Inhaler) 2 puff INHALE RQ4H PRN PRN Reason: sob Buspirone HCl (Buspirone Hcl 5 Mg Tablet) 15 mg PO BID [facility] Last Admin: 10/22/23 07:37 Dose: 15 mg Documented By: ZACH Calcium Carbonate (Calcium Carbonate 750 Mg Tab.Chew) 750 mg PO Q4H PRN PRN Reason: Heartburn Duloxetine HCl (Duloxetine Hcl 60 Mg Capsule.) 60 mg PO DAILY [facility] Last Admin: 10/22/23 07:37 Dose: 60 mg Documented By: ZACH Duloxetine HCl (Duloxetine Hcl 30 Mg Capsule.) 30 mg PO DAILY [facility] Last Admin: 10/22/23 07:37 Dose: 30 mg Documented By: ZACH Famotidine (Famotidine 20 Mg Tablet) 20 mg PO BID [facility] Last Admin: 10/22/23 07:37 Dose: 20 mg Documented By: ZACH Gabapentin (Gabapentin 400 Mg Capsule) 800 mg PO TID [facility] Last Admin: 10/22/23 07:37 Dose: 800 mg Documented By: ZACH Hydromorphone HCl (Hydromorphone Hcl 0.5 Mg/0.5 Ml Syringe) 1 mg IVPUSH Q4H PRN; Protocol PRN Reason: Pain, Severe (Pain Scale 7-10) Last Admin: 10/22/23 12:20 Dose: 1 mg Documented By: ZACH Lactated Ringer's (Lr) 1,000 mls @ 80 mls/hr IVCONT .[id number] [facility] Last Admin: 10/22/23 04:55 Dose: 80 mls/hr Documented By: TRAV Lidocaine (Lidocaine 5 % Ointment 35 Gm) 1 appl TOPICAL Q6H PRN; Protocol PRN Reason: Pain, Mild (Pain Scale 1-3) Last Admin: 10/21/23 10:32 Dose: 1 appl Documented By: TRISTON Lorazepam (Lorazepam 0.5 Mg Tablet) 0.5 mg PO QID PRN PRN Reason: Anxiety Last Admin: 10/21/23 21:46 Dose: 0.5 mg Documented By: TRAV Magnesium Hydroxide (Milk Of Magnesia 30 Ml Oral.Susp) 30 ml PO DAILY PRN PRN Reason: Constipation Last Admin: 10/21/23 11:29 Dose: 30 ml Documented By: TRISTON Melatonin (Melatonin 3 Mg Tablet) 6 mg PO BEDTIME PRN PRN Reason: Insomnia Methocarbamol (Methocarbamol 500 Mg Tablet) 1,000 mg PO TID [facility] Last Admin: 10/22/23 07:37 Dose: 1,000 mg Documented By: ZACH Ondansetron HCl (Ondansetron Hcl 4 Mg/2 Ml Vial) 4 mg IVPUSH Q6H PRN PRN Reason: Nausea and Vomiting Last Admin: 10/21/23 20:26 Dose: 4 mg Documented By: TRAV Oxycodone HCl (Oxycodone Hcl Immed Release 5 Mg Tablet) 5 mg PO Q6H PRN PRN Reason: Pain, Moderate(Pain Scale 4-6) Pantoprazole Sodium (Pantoprazole Sodium 40 Mg/10 Ml Vial) 40 mg IVPUSH BID@0630,1630 [facility] Last Admin: 10/22/23 05:36 Dose: 40 mg Documented By: TRAV Polyethylene Glycol (Polyethylene Glycol 3350 17 Gm Powd.Pack) 17 gm PO DAILY [facility] Last Admin: 10/22/23 08:02 Dose: Not Given Documented By: ZACH Non-Admin Reason: NPO Psyllium Hydrophilic Mucilloid (Psyllium Seed 3.7 Gm Packet) 3.7 gm PO BEDTIME [facility] Last Admin: 10/21/23 20:29 Dose: 3.7 gm Documented By: TRAV Sodium Chloride (0.9 % Sodium Chloride Flush 3 Ml Syringe) 3 ml IVFLUSH QSHIFT [facility] Last Admin: 10/22/23 07:38 Dose: 3 ml Documented By: ZACH Labs 10/20/23 06:04 10/22/23 05:23 Labs: Laboratory Results - last 24 hr 10/22/23 05:23 Hold Purple Top SEE NOTE Anion Gap 12 Estim Creat Clear Calc 111.9 Estimated GFR > 60 Random Glucose 83 Calcium 8.8 Assessment and Plan (1) Biliary dyskinesia: Status: Acute (2) Nausea & vomiting: Status: Acute (3) Intractable abdominal pain: Status: Acute Plan 33F PMH becets, EDS, melanoma s/p excision 2019, splenomegaly, fibromyalgia, mild intermittent asthma, chronic pain syndrome, mood disorder, interstitial cystitis presented with abdominal pain Intractable abdominal pain Possibe PUD\GB problem CT abdomen showing enlarged RUQ LN which seems to be chronic GI input appreciated; GI Series, HIDA scan, old records GI series concerning for possible PUD; start IV PPI and Famotidine, EGD considered HIDA showing dyskinesia of GB Muscle relaxant change to Methocarbamol PRN dilaudid for pain Zofran for nausea IVF for now Biliary dyskinesa post Lap Shayy POD 0 HIDA scan no obstruction but some abnormalities reported with emptying; dyskinesia Gen surgery did Lap Shayy NPO pain management Mild intermittent asthma Albuterol as needed Uterine prolapse Discussed with dr Hudson, Outpatient follow up. Low risk for DVT early ambulation Full code The patient will need overnight hospital stay post Lap shayy pending advancing diet and possible EGD study Quality Stroke Does the patient have a stroke diagnosis?: No VTE Prior VTE?: No VTE Risk Level:: Medical - low VTE Device Contraindication: Treatment Not Indicated VTE Drug Contraindication: Treatment Not Indicated
--- NOTE | 2023-10-22 13:35 | PM.EVENT ---
Event Note Date of Service: 10/22/23 Event Note: Postoperative Check: Patient awake and alert Does reports some incisional pain but otherwise no new complaints. Some bloody discharge noted from the umbilical incision, all other incisions are clean and intact. Review of the operative findings with the patient. Pathology pending. Time Spent With Patient Time: Total time managing care of this patient today ____ minutes.
[2023-10-22] MEDS: oxyCODONE HCl Immed Release 5 MG TABLET PO ×2 (14:11→21:52)
[2023-10-22] MEDS: ondansetron HCL 4 MG/2 ML VIAL IVPUSH ×2 (15:43→23:09)
[2023-10-22] MEDS: Psyllium seed 3.7 GM PACKET PO (20:00)
[2023-10-22] MEDS: Acetaminophen 325 MG TABLET 650 MG PO (21:52)
[2023-10-22] MEDS: LORazepam 0.5 MG TABLET PO (21:52)
[2023-10-23] MEDS: HYDROmorphone HCl 0.5 MG/0.5 ML SYRINGE 1 MG IVPUSH ×6 (04:52→22:21)
[2023-10-23 06:13] LABS: Alanine Aminotransferase 109 U/L (0-31); Albumin Level 3.7 g/dL (3.5-5.0); Alkaline Phosphatase 69 U/L (39-117); Anion Gap 13 (12-20); Aspartate Amino Transferase 56 U/L (5-31); Bilirubin Direct 0.1 mg/dL (0.0-0.5); Bilirubin Total 0.3 mg/dL (0.0-1.0); Blood Urea Nitrogen 7 mg/dL (9-16); Calcium 9.3 mg/dL (8.4-10.2); Carbon Dioxide 26 mmol/L (22-29); Chloride 106 mmol/L (96-108); Creatinine Clr Calc Pharmacy 108.9; Estimated Glomerular Filt Rate > 60; Glucose Random 82 mg/dL (60-115); Potassium 3.8 mmol/L (3.3-5.1); Sodium 141 mmol/L (135-145); Total Protein 5.9 g/dL (6.5-8.0)
[2023-10-23 06:18] LABS: Hematocrit 39.2 % (37.0-47.0); Hemoglobin 13.2 g/dl (12.0-16.0); Mean Corpuscular HGB Conc 33.7 g/dl (31.0-35.0); Mean Corpuscular Hemoglobin 28.2 pg (27.0-33.0); Mean Corpuscular Volume 83.8 fL (80.0-98.0); Mean Platelet Volume 9.6 fL (9.4-12.3); Platelet Count 266 X10*3/uL (160-400); Red Blood Count 4.68 X10*6/uL (4.20-5.50); Red Cell Distribution Width 12.1 % (11.0-16.0); White Blood Count 12.5 X10*3/uL (4.8-10.8)
[2023-10-23] MEDS: Pantoprazole Sodium 40 MG/10 ML VIAL IVPUSH ×2 (06:39→15:53)
[2023-10-23] MEDS: Gabapentin 400 MG CAPSULE 800 MG PO ×3 (07:34→22:10)
[2023-10-23] MEDS: methocarbamoL 500 MG TABLET 1000 MG PO ×3 (07:34→22:11)
[2023-10-23] MEDS: DULoxetine HCl 60 MG CAPSULE.DR PO (07:35)
[2023-10-23] MEDS: oxyCODONE HCl Immed Release 5 MG TABLET PO ×2 (07:35→08:00)
[2023-10-23] MEDS: busPIRone HCl 5 MG TABLET 15 MG PO ×2 (07:35→22:10)
[2023-10-23] MEDS: Famotidine 20 MG TABLET PO ×2 (07:35→22:11)
[2023-10-23] MEDS: Acetaminophen 325 MG TABLET 650 MG PO (07:35)
[2023-10-23] MEDS: DULoxetine HCl 30 MG CAPSULE.DR PO (07:35)
[2023-10-23] MEDS: polyethylene glycoL 3350 17 GM POWD.PACK PO (07:37)
--- NOTE | 2023-10-23 07:57 | P.PNGS_ITS ---
Subjective Subjective Date of Service: 10/23/23 <Jenae Arciniega PA-C - Last Filed: 10/23/23 08:03> 10/23/23 <Gavin Burks MD - Last Filed: 10/23/23 08:15> Interval history: C/o RUQ/right shoulder pain and pain at incision sites. Different than pain prior to surgery. Had some nausea/vomiting yesterday, resolved this morning. Has been trying to ambulate with walker to bathroom. <Jenae Arciniega PA-C - Last Filed: 10/23/23 08:03> Physical Exam 2 Vital Signs: Vital Signs: Last Vital Signs Temp 97 F 10/22/23 23:50 Pulse 55 10/22/23 23:50 Resp 18 10/22/23 23:50 BP 120/74 10/22/23 23:50 Pulse Ox 97 10/22/23 23:50 O2 Del Method Room Air 10/22/23 23:50 O2 Flow Rate 2 10/22/23 11:33 BMI result Body Mass Index 29.9 <Jenae Arciniega PA-C - Last Filed: 10/23/23 08:03> Const: General: comfortable, no acute distress and alert <SHIRIN Turk Last Filed: 10/23/23 08:03> Orientation/consciousness: patient oriented x3 <Jenae Arciniega PA-C - Last Filed: 10/23/23 08:03> Resp: Effort & Inspection: normal respiratory effort <SHIRIN Turk Last Filed: 10/23/23 08:03> GI: Inspection: No distended and Yes incision (dressings intact) <SHIRIN Turk Last Filed: 10/23/23 08:03> Palpation (GI): Soft to palpation, Tenderness to palpation present (GI) (incisional) and no guarding <SHIRIN Turk Last Filed: 10/23/23 08:03> Percussion: Yes normal to percussion <SHIRIN Turk Last Filed: 10/23/23 08:03> Skin: General skin exam: no rashes or lesions noted <Jenae Arciniega PA-C - Last Filed: 10/23/23 08:03> Neuro: General: patient oriented x3 <Jenae Arciniega PA-C - Last Filed: 10/23/23 08:03> Objective Data Active Medications Acetaminophen (Acetaminophen 325 Mg Tablet) 650 mg PO Q6H PRN PRN Reason: Pain, Mild (Pain Scale 1-3), fever or headache Last Admin: 10/23/23 07:35 Dose: 650 mg Documented By: ZACH Albuterol Sulfate (Albuterol Sulfate 90 Mcg 8 Gm Inhaler) 2 puff INHALE RQ4H PRN PRN Reason: sob Buspirone HCl (Buspirone Hcl 5 Mg Tablet) 15 mg PO BID [facility] Last Admin: 10/23/23 07:35 Dose: 15 mg Documented By: ZACH Calcium Carbonate (Calcium Carbonate 750 Mg Tab.Chew) 750 mg PO Q4H PRN PRN Reason: Heartburn Duloxetine HCl (Duloxetine Hcl 60 Mg Capsule.) 60 mg PO DAILY [facility] Last Admin: 10/23/23 07:35 Dose: 60 mg Documented By: ZACH Duloxetine HCl (Duloxetine Hcl 30 Mg Capsule.) 30 mg PO DAILY [facility] Last Admin: 10/23/23 07:35 Dose: 30 mg Documented By: ZACH Famotidine (Famotidine 20 Mg Tablet) 20 mg PO BID [facility] Last Admin: 10/23/23 07:35 Dose: 20 mg Documented By: ZACH Gabapentin (Gabapentin 400 Mg Capsule) 800 mg PO TID [facility] Last Admin: 10/23/23 07:34 Dose: 800 mg Documented By: ZACH Hydromorphone HCl (Hydromorphone Hcl 0.5 Mg/0.5 Ml Syringe) 1 mg IVPUSH Q3H PRN; Protocol PRN Reason: Pain, Severe (Pain Scale 7-10) Last Admin: 10/23/23 04:52 Dose: 1 mg Documented By: LENCHO Lactated Ringer's (Lr) 1,000 mls @ 80 mls/hr IVCONT .[id number] [facility] Last Admin: 10/23/23 03:34 Dose: Not Given Documented By: LENCHO Non-Admin Reason: IV Running Lidocaine (Lidocaine 5 % Ointment 35 Gm) 1 appl TOPICAL Q6H PRN; Protocol PRN Reason: Pain, Mild (Pain Scale 1-3) Last Admin: 10/21/23 10:32 Dose: 1 appl Documented By: TRISTON Lorazepam (Lorazepam 0.5 Mg Tablet) 0.5 mg PO QID PRN PRN Reason: Anxiety Last Admin: 10/22/23 21:52 Dose: 0.5 mg Documented By: LENCHO Magnesium Hydroxide (Milk Of Magnesia 30 Ml Oral.Susp) 30 ml PO DAILY PRN PRN Reason: Constipation Last Admin: 10/21/23 11:29 Dose: 30 ml Documented By: TRISTON Melatonin (Melatonin 3 Mg Tablet) 6 mg PO BEDTIME PRN PRN Reason: Insomnia Methocarbamol (Methocarbamol 500 Mg Tablet) 1,000 mg PO TID [facility] Last Admin: 10/23/23 07:34 Dose: 1,000 mg Documented By: ZACH Ondansetron HCl (Ondansetron Hcl 4 Mg/2 Ml Vial) 4 mg IVPUSH Q6H PRN PRN Reason: Nausea and Vomiting Last Admin: 10/22/23 23:09 Dose: 4 mg Documented By: LENCHO Oxycodone HCl (Oxycodone Hcl Immed Release 5 Mg Tablet) 10 mg PO Q6H PRN PRN Reason: Pain, Moderate(Pain Scale 4-6) Pantoprazole Sodium (Pantoprazole Sodium 40 Mg/10 Ml Vial) 40 mg IVPUSH BID@0630,1630 [facility] Last Admin: 10/23/23 06:39 Dose: 40 mg Documented By: LENCHO Polyethylene Glycol (Polyethylene Glycol 3350 17 Gm Powd.Pack) 17 gm PO DAILY [facility] Last Admin: 10/23/23 07:37 Dose: 17 gm Documented By: ZACH Psyllium Hydrophilic Mucilloid (Psyllium Seed 3.7 Gm Packet) 3.7 gm PO BEDTIME [facility] Last Admin: 10/22/23 20:00 Dose: 3.7 gm Documented By: LENCHO Sodium Chloride (0.9 % Sodium Chloride Flush 3 Ml Syringe) 3 ml IVFLUSH QSHIFT [facility] Last Admin: 10/23/23 07:37 Dose: Not Given Documented By: ZACH Non-Admin Reason: IV Running <Jenae Arciniega PA-C - Last Filed: 10/23/23 08:03> Labs CBC & Chem 7: 10/23/23 05:31 10/23/23 05:31 <Jenae Arciniega PA-C - Last Filed: 10/23/23 08:03> Labs: Laboratory Results - last 24 hr 10/23/23 05:31 MCV 83.8 MCH 28.2 MCHC 33.7 RDW 12.1 Plt Count 266 MPV 9.6 Absolute Nucleated RBC 0.000 Nucleated RBC % (auto) 0.0 Anion Gap 13 Estim Creat Clear Calc 108.9 Estimated GFR > 60 Random Glucose 82 Calcium 9.3 Total Bilirubin 0.3 Direct Bilirubin 0.1 AST 56 H ALT 109 H Alkaline Phosphatase 69 Total Protein 5.9 L Albumin 3.7 <Jenae Arciniega PA-C - Last Filed: 10/23/23 08:03> Procedures Date of Service Date of Service: 10/23/23 <Jenae Arciniega PA-C - Last Filed: 10/23/23 08:03> 10/23/23 <Gavin Burks MD - Last Filed: 10/23/23 08:15> Progress Note: A&P Assessment and plan (1) Biliary dyskinesia: Status: Acute <Jenae Arciniega PA-C - Last Filed: 10/23/23 08:03> (2) Intractable abdominal pain: Status: Acute <Jenae Arciniega PA-C - Last Filed: 10/23/23 08:03> Assessment and Plan: POD #1 s/p laparoscopic cholecystectomy, biopsy mesenteric lymph node for biliary dyskinesia, mesenteric lymphadenopathy. Patient doing fairly well post op, having referred and incisional pain. VSS. Abd exam benign with intact dressings, appropriate post op tenderness. Diet as tolerated, increase activity. Incentive spiromater. Will increase oxycodone to 10mg as needed. Surgically stable for dc when tolerating diet, comfortable on PO analgesics. PAteint comfortable with plan. Pathology pending. <Jenae Arciniega PA-C - Last Filed: 10/23/23 08:03> POD #1 s/p laparoscopic cholecystectomy, biopsy mesenteric lymph node for biliary dyskinesia, mesenteric lymphadenopathy. Patient doing fairly well post op, having referred and incisional pain. VSS. Abd exam benign with intact dressings, appropriate post op tenderness. Diet as tolerated, increase activity. Incentive spiromater. Will increase oxycodone to 10mg as needed. Surgically stable for dc when tolerating diet, comfortable on PO analgesics. PAteint comfortable with plan. Pathology pending. <Gavin Burks MD - Last Filed: 10/23/23 08:15> Time Spent With Patient Time: Total time managing care of this patient today ____ minutes. <Jenae Arciniega PA-C - Last Filed: 10/23/23 08:03> Quality Stroke Does the patient have a stroke diagnosis?: No <Jenae Arciniega PA-C - Last Filed: 10/23/23 08:03> VTE Prior VTE?: No <Jenae Arciniega PA-C - Last Filed: 10/23/23 08:03> VTE Risk Level:: Medical - low <Jenae Arciniega PA-C - Last Filed: 10/23/23 08:03> VTE Device Contraindication: Treatment Not Indicated <Jenae Arciniega PA-C - Last Filed: 10/23/23 08:03> VTE Drug Contraindication: Treatment Not Indicated <Jenae Arciniega PA-C - Last Filed: 10/23/23 08:03>
[2023-10-23 08:02] VITALS: BP 120/57; PULSE 59; RESP 18; TEMP 36.3; O2SAT 97
--- NOTE | 2023-10-23 09:08 | HO.POSTANES ---
Post Anesthesia Evaluation Post Anesthesia Evaluation Date of Service: 10/23/23 Vital Signs: Vital Signs Temp Pulse Resp BP Pulse Ox O2 Del Method 10/23/23 08:02 97.3 F 59 18 120/57 L 97 Room Air 10/22/23 23:50 97 F 55 18 120/74 97 Room Air Anesthesia: General Endotracheal-GETA Mental Status: Awake Pain Control: Satisfactory Nausea/Vomiting: None Hydration: Adequate Anesthesia-Related Issues: No Anes. Related Issues
[2023-10-23] MEDS: ondansetron HCL 4 MG/2 ML VIAL IVPUSH (09:31)
--- NOTE | 2023-10-23 10:15 | HO.PM.IMPN ---
Subjective Subjective Date of Service: 10/23/23 Interval History: Seen and evaluated POD 1 post lap shayy reporting pain at surgical site and feels distended passing gas and reports 2 episodes of vomiting no other events Review of Systems Review of Systems: Yes all other systems are reviewed and are negative Physical Exam Vital Signs: Vital Signs: Last Vital Signs Temp 97.3 F 10/23/23 08:02 Pulse 59 10/23/23 08:02 Resp 18 10/23/23 08:02 BP 120/57 L 10/23/23 08:02 Pulse Ox 97 10/23/23 08:02 O2 Del Method Room Air 10/23/23 08:02 O2 Flow Rate 2 10/22/23 11:33 BMI result Body Mass Index 29.9 Const: Other: Constitutional : Awake, interactive, not in distress Neck : Normal inspection, Supple Cardiovascular : RRR, no JVP, no lower extremity edema Respiratory : good bilateral air entry, no crackles, wheezes or rhonchi Gastrointestinal: soft, lax, Normal bowel sounds, tenderness at surgery site , Left back\loin tenderness significantly better Skin : Warm, Dry Neurological : Alert & oriented x3, No focal deficit Objective Data Active Medications Acetaminophen (Acetaminophen 325 Mg Tablet) 650 mg PO Q6H PRN PRN Reason: Pain, Mild (Pain Scale 1-3), fever or headache Last Admin: 10/23/23 07:35 Dose: 650 mg Documented By: ZACH Albuterol Sulfate (Albuterol Sulfate 90 Mcg 8 Gm Inhaler) 2 puff INHALE RQ4H PRN PRN Reason: sob Buspirone HCl (Buspirone Hcl 5 Mg Tablet) 15 mg PO BID [facility] Last Admin: 10/23/23 07:35 Dose: 15 mg Documented By: ZACH Calcium Carbonate (Calcium Carbonate 750 Mg Tab.Chew) 750 mg PO Q4H PRN PRN Reason: Heartburn Duloxetine HCl (Duloxetine Hcl 60 Mg Capsule.) 60 mg PO DAILY [facility] Last Admin: 10/23/23 07:35 Dose: 60 mg Documented By: ZACH Duloxetine HCl (Duloxetine Hcl 30 Mg Capsule.) 30 mg PO DAILY [facility] Last Admin: 10/23/23 07:35 Dose: 30 mg Documented By: ZACH Famotidine (Famotidine 20 Mg Tablet) 20 mg PO BID [facility] Last Admin: 10/23/23 07:35 Dose: 20 mg Documented By: ZACH Gabapentin (Gabapentin 400 Mg Capsule) 800 mg PO TID [facility] Last Admin: 10/23/23 07:34 Dose: 800 mg Documented By: ZACH Hydromorphone HCl (Hydromorphone Hcl 0.5 Mg/0.5 Ml Syringe) 1 mg IVPUSH Q3H PRN; Protocol PRN Reason: Pain, Severe (Pain Scale 7-10) Last Admin: 10/23/23 09:32 Dose: 1 mg Documented By: ZACH Lactated Ringer's (Lr) 1,000 mls @ 80 mls/hr IVCONT .[id number] [facility] Last Admin: 10/23/23 03:34 Dose: Not Given Documented By: LENCHO Non-Admin Reason: IV Running Lidocaine (Lidocaine 5 % Ointment 35 Gm) 1 appl TOPICAL Q6H PRN; Protocol PRN Reason: Pain, Mild (Pain Scale 1-3) Last Admin: 10/21/23 10:32 Dose: 1 appl Documented By: TRISTON Lorazepam (Lorazepam 0.5 Mg Tablet) 0.5 mg PO QID PRN PRN Reason: Anxiety Last Admin: 10/22/23 21:52 Dose: 0.5 mg Documented By: LENCHO Magnesium Hydroxide (Milk Of Magnesia 30 Ml Oral.Susp) 30 ml PO DAILY PRN PRN Reason: Constipation Last Admin: 10/21/23 11:29 Dose: 30 ml Documented By: TRISTON Melatonin (Melatonin 3 Mg Tablet) 6 mg PO BEDTIME PRN PRN Reason: Insomnia Methocarbamol (Methocarbamol 500 Mg Tablet) 1,000 mg PO TID [facility] Last Admin: 10/23/23 07:34 Dose: 1,000 mg Documented By: ZACH Ondansetron HCl (Ondansetron Hcl 4 Mg/2 Ml Vial) 4 mg IVPUSH Q6H PRN PRN Reason: Nausea and Vomiting Last Admin: 10/23/23 09:31 Dose: 4 mg Documented By: ZACH Oxycodone HCl (Oxycodone Hcl Immed Release 5 Mg Tablet) 10 mg PO Q6H PRN PRN Reason: Pain, Moderate(Pain Scale 4-6) Pantoprazole Sodium (Pantoprazole Sodium 40 Mg/10 Ml Vial) 40 mg IVPUSH BID@0630,1630 [facility] Last Admin: 10/23/23 06:39 Dose: 40 mg Documented By: LENCHO Polyethylene Glycol (Polyethylene Glycol 3350 17 Gm Powd.Pack) 17 gm PO DAILY [facility] Last Admin: 10/23/23 07:37 Dose: 17 gm Documented By: ZACH Psyllium Hydrophilic Mucilloid (Psyllium Seed 3.7 Gm Packet) 3.7 gm PO BEDTIME [facility] Last Admin: 10/22/23 20:00 Dose: 3.7 gm Documented By: LENCHO Simethicone (Simethicone 80 Mg Tab.Chew) 80 mg PO QIDWMHS PRN PRN Reason: Gas Sodium Chloride (0.9 % Sodium Chloride Flush 3 Ml Syringe) 3 ml IVFLUSH QSHIFT [facility] Last Admin: 10/23/23 07:37 Dose: Not Given Documented By: ZACH Non-Admin Reason: IV Running Labs 10/23/23 05:31 10/23/23 05:31 Labs: Laboratory Results - last 24 hr 10/23/23 05:31 MCV 83.8 MCH 28.2 MCHC 33.7 RDW 12.1 Plt Count 266 MPV 9.6 Absolute Nucleated RBC 0.000 Nucleated RBC % (auto) 0.0 Anion Gap 13 Estim Creat Clear Calc 108.9 Estimated GFR > 60 Random Glucose 82 Calcium 9.3 Total Bilirubin 0.3 Direct Bilirubin 0.1 AST 56 H ALT 109 H Alkaline Phosphatase 69 Total Protein 5.9 L Albumin 3.7 Assessment and Plan (1) Biliary dyskinesia: Status: Acute (2) Nausea & vomiting: Status: Acute (3) Intractable abdominal pain: Status: Acute Plan 33F PMH becets, EDS, melanoma s/p excision 2019, splenomegaly, fibromyalgia, mild intermittent asthma, chronic pain syndrome, mood disorder, interstitial cystitis presented with abdominal pain Biliary dyskinesa post Lap Shayy POD 1 HIDA scan no obstruction but some abnormalities reported with emptying; dyskinesia Gen surgery did Lap Shayy advance diet as tolerated pain management Intractable abdominal pain Possibe PUD\GB dyskinesia CT abdomen showing enlarged RUQ LN which seems to be chronic GI input appreciated; GI Series, HIDA scan, old records GI series concerning for possible PUD; Continue IV PPI and Famotidine, EGD considered; To rediscuss with GI if need to be done as Inpt Muscle relaxant change to Methocarbamol with good response; Left loin pain resolved PRN dilaudid for pain Zofran for nausea IVF for now Mild intermittent asthma Albuterol as needed Uterine prolapse Discussed with dr Hudson, Outpatient follow up. Low risk for DVT Lovenox Full code The patient will need overnight hospital stay post Lap shayy pending advancing diet and possible EGD study Quality Stroke Does the patient have a stroke diagnosis?: No VTE Prior VTE?: No VTE Risk Level:: Medical - low VTE Device Contraindication: Treatment Not Indicated VTE Drug Contraindication: Treatment Not Indicated
[2023-10-23] MEDS: Enoxaparin Sodium 40 MG/0.4 ML SYRINGE SUBCUT (12:36)
[2023-10-23] MEDS: Prochlorperazine Edisylate 10 MG/2 ML VIAL 5 MG IVPUSH (13:37)
[2023-10-23] MEDS: LORazepam 0.5 MG TABLET PO (13:38)
[2023-10-23] MEDS: Lactated Ringers 1,000 ML 80 ML IVCONT (13:38)
[2023-10-23 15:14] VITALS: BP 128/87; PULSE 73; RESP 18; TEMP 36.2; O2SAT 96
[2023-10-23] MEDS: 0.9 % Sodium Chloride Flush 3 ML SYRINGE IVFLUSH ×2 (16:01→22:13)
[2023-10-23] MEDS: oxyCODONE HCl Immed Release 5 MG TABLET 10 MG PO (17:10)
[2023-10-23 23:17] VITALS: BP 113/58; PULSE 55; RESP 16; TEMP 36.6; O2SAT 95
[2023-10-24] MEDS: HYDROmorphone HCl 0.5 MG/0.5 ML SYRINGE 1 MG IVPUSH ×6 (03:00→21:06)
[2023-10-24] MEDS: Lactated Ringers 1,000 ML 80 ML IVCONT ×2 (03:03→17:41)
[2023-10-24] MEDS: LORazepam 0.5 MG TABLET PO ×3 (05:15→20:21)
[2023-10-24] MEDS: Pantoprazole Sodium 40 MG/10 ML VIAL IVPUSH ×2 (06:28→16:37)
[2023-10-24 06:54] LABS: Hematocrit 35.8 % (37.0-47.0); Hemoglobin 12.2 g/dl (12.0-16.0); Mean Corpuscular HGB Conc 34.1 g/dl (31.0-35.0); Mean Corpuscular Hemoglobin 28.8 pg (27.0-33.0); Mean Corpuscular Volume 84.4 fL (80.0-98.0); Mean Platelet Volume 9.6 fL (9.4-12.3); Platelet Count 240 X10*3/uL (160-400); Red Blood Count 4.24 X10*6/uL (4.20-5.50); Red Cell Distribution Width 12.4 % (11.0-16.0); White Blood Count 8.4 X10*3/uL (4.8-10.8)
[2023-10-24 07:00] VITALS: BP 117/69; PULSE 50; RESP 18; TEMP 36.9; O2SAT 93
[2023-10-24 07:21] LABS: Alanine Aminotransferase 77 U/L (0-31); Albumin Level 3.2 g/dL (3.5-5.0); Alkaline Phosphatase 59 U/L (39-117); Anion Gap 10 (12-20); Aspartate Amino Transferase 31 U/L (5-31); Bilirubin Direct < 0.2 mg/dL (0.0-0.5); Bilirubin Total 0.1 mg/dL (0.0-1.0); Blood Urea Nitrogen 5 mg/dL (9-16); Calcium 8.2 mg/dL (8.4-10.2); Carbon Dioxide 27 mmol/L (22-29); Chloride 107 mmol/L (96-108); Creatinine Clr Calc Pharmacy 111.9; Estimated Glomerular Filt Rate > 60; Glucose Random 105 mg/dL (60-115); Potassium 3.2 mmol/L (3.3-5.1); Sodium 141 mmol/L (135-145); Total Protein 4.9 g/dL (6.5-8.0)
--- NOTE | 2023-10-24 08:08 | HO.PM.IMPN ---
Subjective Subjective Date of Service: 10/24/23 Interval History: Seen in follow-up for biliary hyperkinesia Interval history: Continues to report incisional pain s/p lap cholecystectomy. Denies ongoing nausea or vomiting. Has been using incentive spirometer. Scheduled for EGD later today, currently NPO Review of Systems Review of Systems: Yes all other systems are reviewed and are negative Physical Exam Vital Signs: Vital Signs: Last Vital Signs Temp 98.4 F 10/24/23 07:00 Pulse 50 10/24/23 07:00 Resp 18 10/24/23 07:00 BP 117/69 10/24/23 07:00 Pulse Ox 93 10/24/23 07:00 O2 Del Method Room Air 10/24/23 07:00 O2 Flow Rate 2 10/22/23 11:33 BMI result Body Mass Index 29.9 Constitutional - Awake and Alert, No apparent distress Eyes - PERRLA, EOMI Cardiovascular - S1S2, RRR, No edema Respiratory - Normal lung expansion, Normal respiratory effort, No respiratory distress, CTA bilaterally Gastrointestinal - ttp in ruq and epigastrium around incision without erythema or warmth. ND; +BS; No rebound or guarding Extremities - no calf tenderness bilaterally, no swelling Skin - Warm/Dry Neurological - Alert & oriented x3 Psychological - Appropriate affect Objective Data Active Medications Acetaminophen (Acetaminophen 325 Mg Tablet) 650 mg PO Q6H PRN PRN Reason: Pain, Mild (Pain Scale 1-3), fever or headache Last Admin: 10/23/23 07:35 Dose: 650 mg Documented By: ZACH Albuterol Sulfate (Albuterol Sulfate 90 Mcg 8 Gm Inhaler) 2 puff INHALE RQ4H PRN PRN Reason: sob Buspirone HCl (Buspirone Hcl 5 Mg Tablet) 15 mg PO BID [facility] Last Admin: 10/23/23 22:10 Dose: 15 mg Documented By: LENCHO Calcium Carbonate (Calcium Carbonate 750 Mg Tab.Chew) 750 mg PO Q4H PRN PRN Reason: Heartburn Duloxetine HCl (Duloxetine Hcl 60 Mg Capsule.) 60 mg PO DAILY [facility] Last Admin: 10/23/23 07:35 Dose: 60 mg Documented By: ZACH Duloxetine HCl (Duloxetine Hcl 30 Mg Capsule.) 30 mg PO DAILY [facility] Last Admin: 10/23/23 07:35 Dose: 30 mg Documented By: ZACH Enoxaparin Sodium (Enoxaparin Sodium 40 Mg/0.4 Ml Syringe) 40 mg SUBCUT Q24H [facility] Last Admin: 10/23/23 12:36 Dose: 40 mg Documented By: ZACH Famotidine (Famotidine 20 Mg Tablet) 20 mg PO BID [facility] Last Admin: 10/23/23 22:11 Dose: 20 mg Documented By: LENCHO Gabapentin (Gabapentin 400 Mg Capsule) 800 mg PO TID [facility] Last Admin: 10/23/23 22:10 Dose: 800 mg Documented By: LENCHO Hydromorphone HCl (Hydromorphone Hcl 0.5 Mg/0.5 Ml Syringe) 1 mg IVPUSH Q3H PRN; Protocol PRN Reason: Pain, Severe (Pain Scale 7-10) Last Admin: 10/24/23 06:24 Dose: 1 mg Documented By: LENCHO Lactated Ringer's (Lr) 1,000 mls @ 80 mls/hr IVCONT .[id number] [facility] Last Admin: 10/24/23 03:03 Dose: 80 mls/hr Documented By: LENCHO Lidocaine (Lidocaine 5 % Ointment 35 Gm) 1 appl TOPICAL Q6H PRN; Protocol PRN Reason: Pain, Mild (Pain Scale 1-3) Last Admin: 10/21/23 10:32 Dose: 1 appl Documented By: TRISTON Lorazepam (Lorazepam 0.5 Mg Tablet) 0.5 mg PO QID PRN PRN Reason: Anxiety Last Admin: 10/24/23 05:15 Dose: 0.5 mg Documented By: LENCHO Magnesium Hydroxide (Milk Of Magnesia 30 Ml Oral.Susp) 30 ml PO DAILY PRN PRN Reason: Constipation Last Admin: 10/21/23 11:29 Dose: 30 ml Documented By: TRISTON Melatonin (Melatonin 3 Mg Tablet) 6 mg PO BEDTIME PRN PRN Reason: Insomnia Methocarbamol (Methocarbamol 500 Mg Tablet) 1,000 mg PO TID [facility] Last Admin: 10/23/23 22:11 Dose: 1,000 mg Documented By: LENCHO Ondansetron HCl (Ondansetron Hcl 4 Mg/2 Ml Vial) 4 mg IVPUSH Q6H PRN PRN Reason: Nausea and Vomiting Last Admin: 10/23/23 09:31 Dose: 4 mg Documented By: ZACH Oxycodone HCl (Oxycodone Hcl Immed Release 5 Mg Tablet) 10 mg PO Q6H PRN PRN Reason: Pain, Moderate(Pain Scale 4-6) Last Admin: 10/23/23 17:10 Dose: 10 mg Documented By: ZACH Pantoprazole Sodium (Pantoprazole Sodium 40 Mg/10 Ml Vial) 40 mg IVPUSH BID@0630,1630 [facility] Last Admin: 10/24/23 06:28 Dose: 40 mg Documented By: LENCHO Polyethylene Glycol (Polyethylene Glycol 3350 17 Gm Powd.Pack) 17 gm PO DAILY [facility] Last Admin: 10/23/23 07:37 Dose: 17 gm Documented By: ZACH Prochlorperazine Edisylate (Prochlorperazine Edisylate 10 Mg/2 Ml Vial) 5 mg IVPUSH Q6H PRN PRN Reason: Nausea and Vomiting Psyllium Hydrophilic Mucilloid (Psyllium Seed 3.7 Gm Packet) 3.7 gm PO BEDTIME [facility] Last Admin: 10/23/23 22:09 Dose: Not Given Documented By: LENCHO Non-Admin Reason: Patient Refused Simethicone (Simethicone 80 Mg Tab.Chew) 80 mg PO QIDWMHS PRN PRN Reason: Gas Sodium Chloride (0.9 % Sodium Chloride Flush 3 Ml Syringe) 3 ml IVFLUSH QSHIFT [facility] Last Admin: 10/23/23 22:13 Dose: 3 ml Documented By: LENCHO Labs 10/24/23 05:35 10/24/23 05:35 Labs: Laboratory Results - last 24 hr 10/24/23 05:35 MCV 84.4 MCH 28.8 MCHC 34.1 RDW 12.4 Plt Count 240 MPV 9.6 Absolute Nucleated RBC 0.000 Nucleated RBC % (auto) 0.0 Anion Gap 10 L Estim Creat Clear Calc 111.9 Estimated GFR > 60 Random Glucose 105 Calcium 8.2 L D Total Bilirubin 0.1 Direct Bilirubin < 0.2 AST 31 ALT 77 H Alkaline Phosphatase 59 Total Protein 4.9 L Albumin 3.2 L Assessment and Plan (1) Biliary dyskinesia: Status: Acute (2) Nausea & vomiting: Status: Acute (3) Intractable abdominal pain: Status: Acute Plan 33F PMH aria, EDS, melanoma s/p excision 2019, splenomegaly, fibromyalgia, mild intermittent asthma, chronic pain syndrome, mood disorder, interstitial cystitis presented with abdominal pain Biliary dyskinesa post Lap Shayy POD 2 HIDA scan no obstruction but some abnormalities reported with emptying; dyskinesia Gen surgery did Lap Shayy, awaiting lymph node biopsies Currently NPO scheduled for EGD today. Advance diet as tolerated pain management Intractable abdominal pain Possibe PUD\GB dyskinesia CT abdomen showing enlarged RUQ LN which seems to be chronic GI input appreciated; GI Series, HIDA scan, old records GI series concerning for possible PUD; Continue IV PPI and Famotidine, EGD scheduled for today 2pm, currentlyl npo Muscle relaxant change to Methocarbamol with good response; Left loin pain resolved PRN dilaudid for pain Zofran for nausea IVF for now Mild intermittent asthma Albuterol as needed Uterine prolapse Discussed with dr Hudson, Outpatient follow up. Low risk for DVT Lovenox Full code The patient will need overnight hospital stay post Lap shayy pending advancing diet and EGD study Quality Stroke Does the patient have a stroke diagnosis?: No VTE Prior VTE?: No VTE Risk Level:: Medical - low VTE Device Contraindication: Treatment Not Indicated VTE Drug Contraindication: Treatment Not Indicated
--- NOTE | 2023-10-24 08:45 | PM.PNGS ---
Subjective Subjective Date of Service: 10/24/23 Interval history: Pod 2 following laparoscopic cholecystectomy and mesenteric lymph node biopsy. Patient continues to report pain in the epigastric and subcostal incision. She apparently is scheduled for an EGD later today. Reports continued nausea and vomiting. Physical Exam Vital Signs: Vital Signs: Last Vital Signs Temp 98.4 F 10/24/23 07:00 Pulse 50 10/24/23 07:00 Resp 18 10/24/23 07:00 BP 117/69 10/24/23 07:00 Pulse Ox 93 10/24/23 07:00 O2 Del Method Room Air 10/24/23 07:00 O2 Flow Rate 2 10/22/23 11:33 BMI result Body Mass Index 29.9 Const: General: no acute distress Nutritional Appearance: well nourished Orientation/consciousness: patient oriented x3 Limitations: ambulation with walker Resp: Effort & Inspection: normal respiratory effort, no audible wheezes, no cough and no respiratory distress GI: Other: Trocar sites are clean, dry, and intact without redness or hernia. Palpation (GI): Soft to palpation Skin: Other: No jaundice Neuro: General: patient oriented x3 Objective Data Active Medications Acetaminophen (Acetaminophen 325 Mg Tablet) 650 mg PO Q6H PRN PRN Reason: Pain, Mild (Pain Scale 1-3), fever or headache Last Admin: 10/23/23 07:35 Dose: 650 mg Documented By: ZACH Albuterol Sulfate (Albuterol Sulfate 90 Mcg 8 Gm Inhaler) 2 puff INHALE RQ4H PRN PRN Reason: sob Buspirone HCl (Buspirone Hcl 5 Mg Tablet) 15 mg PO BID [facility] Last Admin: 10/23/23 22:10 Dose: 15 mg Documented By: LENCHO Calcium Carbonate (Calcium Carbonate 750 Mg Tab.Chew) 750 mg PO Q4H PRN PRN Reason: Heartburn Duloxetine HCl (Duloxetine Hcl 60 Mg Capsule.) 60 mg PO DAILY [facility] Last Admin: 10/23/23 07:35 Dose: 60 mg Documented By: ZACH Duloxetine HCl (Duloxetine Hcl 30 Mg Capsule.) 30 mg PO DAILY [facility] Last Admin: 10/23/23 07:35 Dose: 30 mg Documented By: ZACH Enoxaparin Sodium (Enoxaparin Sodium 40 Mg/0.4 Ml Syringe) 40 mg SUBCUT Q24H [facility] Last Admin: 10/23/23 12:36 Dose: 40 mg Documented By: ZACH Famotidine (Famotidine 20 Mg Tablet) 20 mg PO BID [facility] Last Admin: 10/23/23 22:11 Dose: 20 mg Documented By: LENCHO Gabapentin (Gabapentin 400 Mg Capsule) 800 mg PO TID [facility] Last Admin: 10/23/23 22:10 Dose: 800 mg Documented By: LENCHO Hydromorphone HCl (Hydromorphone Hcl 0.5 Mg/0.5 Ml Syringe) 1 mg IVPUSH Q3H PRN; Protocol PRN Reason: Pain, Severe (Pain Scale 7-10) Last Admin: 10/24/23 06:24 Dose: 1 mg Documented By: LENCHO Lactated Ringer's (Lr) 1,000 mls @ 80 mls/hr IVCONT .[id number] [facility] Last Admin: 10/24/23 03:03 Dose: 80 mls/hr Documented By: LENCHO Lidocaine (Lidocaine 5 % Ointment 35 Gm) 1 appl TOPICAL Q6H PRN; Protocol PRN Reason: Pain, Mild (Pain Scale 1-3) Last Admin: 10/21/23 10:32 Dose: 1 appl Documented By: TRISTON Lorazepam (Lorazepam 0.5 Mg Tablet) 0.5 mg PO QID PRN PRN Reason: Anxiety Last Admin: 10/24/23 05:15 Dose: 0.5 mg Documented By: LENCHO Magnesium Hydroxide (Milk Of Magnesia 30 Ml Oral.Susp) 30 ml PO DAILY PRN PRN Reason: Constipation Last Admin: 10/21/23 11:29 Dose: 30 ml Documented By: TRISTON Melatonin (Melatonin 3 Mg Tablet) 6 mg PO BEDTIME PRN PRN Reason: Insomnia Methocarbamol (Methocarbamol 500 Mg Tablet) 1,000 mg PO TID [facility] Last Admin: 10/23/23 22:11 Dose: 1,000 mg Documented By: LENCHO Ondansetron HCl (Ondansetron Hcl 4 Mg/2 Ml Vial) 4 mg IVPUSH Q6H PRN PRN Reason: Nausea and Vomiting Last Admin: 10/23/23 09:31 Dose: 4 mg Documented By: ZACH Oxycodone HCl (Oxycodone Hcl Immed Release 5 Mg Tablet) 10 mg PO Q6H PRN PRN Reason: Pain, Moderate(Pain Scale 4-6) Last Admin: 10/23/23 17:10 Dose: 10 mg Documented By: ZACH Pantoprazole Sodium (Pantoprazole Sodium 40 Mg/10 Ml Vial) 40 mg IVPUSH BID@0630,1630 [facility] Last Admin: 10/24/23 06:28 Dose: 40 mg Documented By: LENCHO Polyethylene Glycol (Polyethylene Glycol 3350 17 Gm Powd.Pack) 17 gm PO DAILY [facility] Last Admin: 10/23/23 07:37 Dose: 17 gm Documented By: ZACH Prochlorperazine Edisylate (Prochlorperazine Edisylate 10 Mg/2 Ml Vial) 5 mg IVPUSH Q6H PRN PRN Reason: Nausea and Vomiting Psyllium Hydrophilic Mucilloid (Psyllium Seed 3.7 Gm Packet) 3.7 gm PO BEDTIME [facility] Last Admin: 10/23/23 22:09 Dose: Not Given Documented By: LENCHO Non-Admin Reason: Patient Refused Simethicone (Simethicone 80 Mg Tab.Chew) 80 mg PO QIDWMHS PRN PRN Reason: Gas Sodium Chloride (0.9 % Sodium Chloride Flush 3 Ml Syringe) 3 ml IVFLUSH QSHIFT [facility] Last Admin: 10/23/23 22:13 Dose: 3 ml Documented By: LENCHO Labs 10/24/23 05:35 10/24/23 05:35 Labs: Laboratory Results - last 24 hr 10/24/23 05:35 MCV 84.4 MCH 28.8 MCHC 34.1 RDW 12.4 Plt Count 240 MPV 9.6 Absolute Nucleated RBC 0.000 Nucleated RBC % (auto) 0.0 Anion Gap 10 L Estim Creat Clear Calc 111.9 Estimated GFR > 60 Random Glucose 105 Calcium 8.2 L D Total Bilirubin 0.1 Direct Bilirubin < 0.2 AST 31 ALT 77 H Alkaline Phosphatase 59 Total Protein 4.9 L Albumin 3.2 L Procedures Date of Service Date of Service: 10/24/23 Progress Note: A&P Assessment and plan (1) Biliary dyskinesia: Status: Acute (2) Nausea & vomiting: Status: Acute Plan 33-year-old female patient with complaints of right upper quadrant abdominal pain, nausea and vomiting found on HIDA scan to have biliary hyperkinesia. She is now postoperative day 2 following laparoscopic cholecystectomy with mesenteric lymph node biopsy. She continues to have nausea and vomiting and mainly incisional pain at this time. It is unclear if her symptoms have improved following laparoscopic cholecystectomy. She is awaiting EGD later today. We will await pathology results on the large mesenteric lymphadenopathy. Time Spent With Patient Time: Total time managing care of this patient today ____ minutes. Quality Stroke Does the patient have a stroke diagnosis?: No VTE Prior VTE?: No VTE Risk Level:: Medical - low VTE Device Contraindication: Treatment Not Indicated VTE Drug Contraindication: Treatment Not Indicated
[2023-10-24] MEDS: methocarbamoL 500 MG TABLET 1000 MG PO ×3 (09:39→20:22)
[2023-10-24] MEDS: Famotidine 20 MG TABLET PO ×2 (09:39→20:22)
[2023-10-24] MEDS: DULoxetine HCl 30 MG CAPSULE.DR PO (09:39)
[2023-10-24] MEDS: DULoxetine HCl 60 MG CAPSULE.DR PO (09:39)
[2023-10-24] MEDS: busPIRone HCl 5 MG TABLET 15 MG PO ×2 (09:39→20:21)
[2023-10-24] MEDS: Gabapentin 400 MG CAPSULE 800 MG PO ×3 (09:39→20:22)
[2023-10-24] MEDS: Enoxaparin Sodium 40 MG/0.4 ML SYRINGE SUBCUT (09:40)
[2023-10-24] MEDS: ondansetron HCL 4 MG/2 ML VIAL IVPUSH ×2 (09:47→21:05)
[2023-10-24 12:24] VITALS: BP 127/78; PULSE 53; RESP 16; TEMP 36.7; O2SAT 97
[2023-10-24] MEDS: oxyCODONE HCl Immed Release 5 MG TABLET 10 MG PO (12:31)
--- NOTE | 2023-10-24 13:00 | P.PNGI_ITS ---
Subjective Subjective Date of Service: 10/24/23 Interval History: patient still has nausea, and epigastric pain, poor appetite she has been having diarrhea no fevers or chills Critical Care Time (minutes): 0 Physical Exam 2 Vital Signs: Vital Signs: Last Vital Signs Temp 98.0 F 10/24/23 12:24 Pulse 53 10/24/23 12:24 Resp 16 10/24/23 12:24 BP 127/78 10/24/23 12:24 Pulse Ox 97 10/24/23 12:24 O2 Del Method Room Air 10/24/23 12:24 O2 Flow Rate 2 10/22/23 11:33 BMI result Body Mass Index 29.9 EXAM: GENERAL: The patient is well developed and nontoxic. VITAL SIGNS:see workflow HEENT: Nonicteric sclerae, PERRLA, EOMI. Oropharynx clear. Moist mucous membranes. Conjunctivae appear well perfused. No thyroid mass. CHEST: Chest wall is nontender. HEART: Regular rate and rhythm without murmurs. LUNGS: Clear to auscultation bilaterally. ABDOMEN: Soft, positive bowel sounds, tender upper abdo, no organomegaly.no flank tenderness SKIN: No rash, no excessive bruising, petechiae, or purpura. NEUROLOGIC: Cranial nerves II-XII intact without motor/sensory deficit. Psych: normal affect Objective Data Labs 10/24/23 05:35 10/24/23 05:35 Labs: Laboratory Results - last 24 hr 10/24/23 05:35 WBC 8.4 RBC 4.24 Hgb 12.2 Hct 35.8 L MCV 84.4 MCH 28.8 MCHC 34.1 RDW 12.4 Plt Count 240 MPV 9.6 Absolute Nucleated RBC 0.000 Nucleated RBC % (auto) 0.0 Sodium 141 Potassium 3.2 L Chloride 107 Carbon Dioxide 27 Anion Gap 10 L BUN 5 L Creatinine 0.72 Estim Creat Clear Calc 111.9 Estimated GFR > 60 Random Glucose 105 Calcium 8.2 L D Total Bilirubin 0.1 Direct Bilirubin < 0.2 AST 31 ALT 77 H Alkaline Phosphatase 59 Total Protein 4.9 L Albumin 3.2 L Procedures Date of Service Date of Service: 10/24/23 Progress Note: A&P Assessment and plan (1) Intractable abdominal pain: Status: Acute Assessment and Plan: 1/ upper abdominal pain, nausea, poor PO intake--recent cholecystectomy, with mesenteric LN sample also take, result pending PLAN: 1/ EGD for further assessment of pain, r/o PUD, GOO 2/ f/u mesenteric LN path Time Spent With Patient Time: Total time managing care of this patient today ____ minutes. Quality Stroke Does the patient have a stroke diagnosis?: No VTE Prior VTE?: No VTE Risk Level:: Medical - low VTE Device Contraindication: Treatment Not Indicated VTE Drug Contraindication: Treatment Not Indicated
--- NOTE | 2023-10-24 13:00 | MHC.SHP ---
Pre-Procedural Eval Section A - 24 Hr Update-Section A only Date of Service: 10/24/23 The patient is an INPATIENT: Yes The patient has been examined within 24 hours of the surgical procedure. The History & Physical has been completed within 30 days and I have reviewed it.: Yes Section B - Complete if H&P > 30 days Chief Complaint: Intractable abd pain Allergies: Allergies Allergy/AdvReac Type Severity Reaction Status Date / Time erythromycin base Allergy Unknown UNKNOWN Verified 10/22/23 08:18 [ERYTHROMYCIN BASE] latex [LATEX] Allergy Unknown UNKNOWN Verified 10/22/23 08:18 Adhesive tape Allergy Unknown Unknown Uncoded 10/18/23 14:40 Erthromycin Allergy Unknown Unknown Uncoded 10/18/23 14:40 Latex Allergy Unknown Unknown Uncoded 10/18/23 14:40 Plan Diagnosis/Plan: Unchanged I have reviewed the history and physical and performed a pertinent physical examination on my patient. No changes have occurred unless specified. Time Spent With Patient Time: Total time managing care of this patient today ____ minutes.
--- NOTE | 2023-10-24 13:04 | HO.ANESPROP2 ---
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] Personal history of malignant melanoma of skin Muscle spasm of back Chronic pain syndrome Generalized anxiety disorder Major depressive disorder, single episode, in full remission Family History Family history of problems with anesthesia: No Surgical History Surgical History Hx of tonsillectomy History of appendectomy History of Problems with Anesthesia: No Social History Social History Household Members: Spouse and Family Housing: House Are you a primary health care liaison to a significant other at home: No Do you presently have visiting nurse or other home services: No Alcohol intake: current Alcohol intake frequency: holidays/special occasions only Patient Tobacco Use Status: Former Tobacco user Tobacco use type: Cigarette Smoked in Last 30 Days: No e-Cigarette/Vaping Use: Currently Using Patient Interested in Nicotine Replacement: No Patient Given Instructions on How to Stop Smoking: No Date Education Initiated: 10/21/23 Second Hand Smoke Exposure: No Use of substances other than those prescribed or required for medical reasons: Yes Substance Use Type: Other and Caffiene Substance Use Frequency: Weekly Currently Displaying Signs/Symptoms of Drug Intoxication Withdrawal: No Any prior treatment program specific to substance use: No Have you been hit, kicked, punched, or otherwise hurt by someone within the past year? If so, by whom?: No Do you feel safe in your current relationship?: Yes Is there a partner from a previous relationship who is making you feel unsafe now?: No Are you made to feel afraid or neglected: No Are you DNR?: No Advance Directives: No Advance Directives Information Provided: Yes Advance Directives on File: No Do you have a plan to hurt others: No Plan Recently lost weight without trying: No Eating poorly because of decreased appetite: No Nutrition Risks: No Nutritional Risk Patient : No : No Poor oral hygiene: No service: No Meds Allergies Allergy/AdvReac Type Severity Reaction Status Date / Time erythromycin base Allergy Unknown UNKNOWN Verified 10/22/23 08:18 [ERYTHROMYCIN BASE] latex [LATEX] Allergy Unknown UNKNOWN Verified 10/22/23 08:18 Adhesive tape Allergy Unknown Unknown Uncoded 10/18/23 14:40 Erthromycin Allergy Unknown Unknown Uncoded 10/18/23 14:40 Latex Allergy Unknown Unknown Uncoded 10/18/23 14:40 Active Medications: Current Medications Acetaminophen (Acetaminophen 325 Mg Tablet) 650 mg PO Q6H PRN PRN Reason: Pain, Mild (Pain Scale 1-3), fever or headache Last Admin: 10/23/23 07:35 Dose: 650 mg Albuterol Sulfate (Albuterol Sulfate 90 Mcg 8 Gm Inhaler) 2 puff INHALE RQ4H PRN PRN Reason: sob Buspirone HCl (Buspirone Hcl 5 Mg Tablet) 15 mg PO BID [facility] Last Admin: 10/24/23 09:39 Dose: 15 mg Calcium Carbonate (Calcium Carbonate 750 Mg Tab.Chew) 750 mg PO Q4H PRN PRN Reason: Heartburn Duloxetine HCl (Duloxetine Hcl 60 Mg Capsule.Dr) 60 mg PO DAILY [facility] Last Admin: 10/24/23 09:39 Dose: 60 mg Duloxetine HCl (Duloxetine Hcl 30 Mg Capsule.Dr) 30 mg PO DAILY [facility] Last Admin: 10/24/23 09:39 Dose: 30 mg Enoxaparin Sodium (Enoxaparin Sodium 40 Mg/0.4 Ml Syringe) 40 mg SUBCUT Q24H [facility] Last Admin: 10/24/23 09:40 Dose: 40 mg Famotidine (Famotidine 20 Mg Tablet) 20 mg PO BID [facility] Last Admin: 10/24/23 09:39 Dose: 20 mg Gabapentin (Gabapentin 400 Mg Capsule) 800 mg PO TID [facility] Last Admin: 10/24/23 09:39 Dose: 800 mg Hydromorphone HCl (Hydromorphone Hcl 0.5 Mg/0.5 Ml Syringe) 1 mg IVPUSH Q3H PRN; Protocol PRN Reason: Pain, Severe (Pain Scale 7-10) Last Admin: 10/24/23 09:40 Dose: 1 mg Lactated Ringer's (Lr) 1,000 mls @ 80 mls/hr IVCONT .[id number] [facility] Last Admin: 10/24/23 03:03 Dose: 80 mls/hr Lidocaine (Lidocaine 5 % Ointment 35 Gm) 1 appl TOPICAL Q6H PRN; Protocol PRN Reason: Pain, Mild (Pain Scale 1-3) Last Admin: 10/21/23 10:32 Dose: 1 appl Lorazepam (Lorazepam 0.5 Mg Tablet) 0.5 mg PO QID PRN PRN Reason: Anxiety Last Admin: 10/24/23 05:15 Dose: 0.5 mg Magnesium Hydroxide (Milk Of Magnesia 30 Ml Oral.Susp) 30 ml PO DAILY PRN PRN Reason: Constipation Last Admin: 10/21/23 11:29 Dose: 30 ml Melatonin (Melatonin 3 Mg Tablet) 6 mg PO BEDTIME PRN PRN Reason: Insomnia Methocarbamol (Methocarbamol 500 Mg Tablet) 1,000 mg PO TID [facility] Last Admin: 10/24/23 09:39 Dose: 1,000 mg Ondansetron HCl (Ondansetron Hcl 4 Mg/2 Ml Vial) 4 mg IVPUSH Q6H PRN PRN Reason: Nausea and Vomiting Last Admin: 10/24/23 09:47 Dose: 4 mg Oxycodone HCl (Oxycodone Hcl Immed Release 5 Mg Tablet) 10 mg PO Q6H PRN PRN Reason: Pain, Moderate(Pain Scale 4-6) Last Admin: 10/24/23 12:31 Dose: 10 mg Pantoprazole Sodium (Pantoprazole Sodium 40 Mg/10 Ml Vial) 40 mg IVPUSH BID@0630,1630 [facility] Last Admin: 10/24/23 06:28 Dose: 40 mg Polyethylene Glycol (Polyethylene Glycol 3350 17 Gm Powd.Pack) 17 gm PO DAILY [facility] Last Admin: 10/24/23 09:48 Dose: Not Given Prochlorperazine Edisylate (Prochlorperazine Edisylate 10 Mg/2 Ml Vial) 5 mg IVPUSH Q6H PRN PRN Reason: Nausea and Vomiting Psyllium Hydrophilic Mucilloid (Psyllium Seed 3.7 Gm Packet) 3.7 gm PO BEDTIME [facility] Last Admin: 10/23/23 22:09 Dose: Not Given Simethicone (Simethicone 80 Mg Tab.Chew) 80 mg PO QIDWMHS PRN PRN Reason: Gas Sodium Chloride (0.9 % Sodium Chloride Flush 3 Ml Syringe) 3 ml IVFLUSH QSHIFT [facility] Last Admin: 10/24/23 09:48 Dose: Not Given Home Medications ?Medication ?Instructions ?Recorded ?Confirmed ?Last Taken ?Type duloxetine 30 mg capsule,delayed 30 mg PO DAILY 08/04/22 10/18/23 10/18/23 History release lorazepam 0.5 mg tablet 0.5 mg PO QID PRN Anxiety 08/04/22 10/18/23 10/18/23 History acetaminophen 500 mg tablet 1,000 mg PO Q6-8H PRN Pain 10/18/23 10/18/23 Unknown History (Tylenol Extra Strength) baclofen 10 mg tablet 10 mg PO TID 10/18/23 10/18/23 10/18/23 History buspirone 15 mg tablet 15 mg PO BID 10/18/23 10/18/23 10/18/23 History colchicine 0.6 mg tablet 0.6 mg DAILY 10/18/23 10/18/23 10/18/23 History dextroamphetamine-amphetamine 10 10 mg PO DAILY@1200 PRN attention 10/18/23 10/18/23 10/18/23 History mg tablet dextroamphetamine-amphetamine 10 20 mg PO DAILY 10/18/23 10/18/23 10/18/23 History mg tablet duloxetine 60 mg capsule,delayed 60 mg PO DAILY 10/18/23 10/18/23 10/18/23 History release gabapentin 800 mg tablet 800 mg PO TID 10/18/23 10/18/23 10/18/23 History ibuprofen 200 mg tablet 400 mg PO Q6-8H PRN Pain 10/18/23 10/18/23 Unknown History ketamine 100 mg sublingual dennise 60 mg sublingual DAILY 10/18/23 10/18/23 Unknown History mupirocin 2 % topical ointment 1 appl topical BID PRN Rash 10/18/23 10/18/23 Unknown History Exam Height,Weight and Vital Signs: Height 5 ft 4 in Weight 78.925 kg Last Vital Signs Temp 98.0 F 10/24/23 12:24 Pulse 53 10/24/23 12:24 Resp 16 10/24/23 12:24 BP 127/78 10/24/23 12:24 Pulse Ox 97 10/24/23 12:24 O2 Del Method Room Air 10/24/23 12:24 O2 Flow Rate 2 10/22/23 11:33 Pertinent Lab Results Pertinent Lab Results: Laboratory Tests 10/18/23 10/19/23 10/19/23 14:56 05:28 15:50 WBC 8.6 7.9 RBC 4.86 4.60 Hgb 14.2 13.1 Hct 41.6 40.0 MCV 85.6 87.0 MCH 29.2 28.5 MCHC 34.1 32.8 RDW 12.6 12.6 Plt Count 262 245 MPV 9.4 9.7 Immature Gran % (Auto) 0.2 Neut % (Auto) 44.4 L Lymph % (Auto) 37.4 [place] % (Auto) 6.7 Eos % (Auto) 10.4 H Baso % (Auto) 0.9 Lymph # (Auto) 3.2 [place] # (Auto) 0.6 Eos # (Auto) 0.9 H Baso # (Auto) 0.1 Abs Immat Gran (auto) 0.02 Absolute Neuts (auto) 3.8 Absolute Nucleated RBC 0.000 0.000 Nucleated RBC % (auto) 0.0 0.0 ESR 4 Hold Purple Top Sodium 142 141 Potassium 3.6 3.4 Chloride 108 108 Carbon Dioxide 26 26 Anion Gap 12 10 L BUN 6 L 5 L Creatinine 0.76 0.67 Estim Creat Clear Calc 106.0 120.2 Estimated GFR > 60 > 60 Random Glucose 83 Fasting Glucose 79 Calcium 9.7 9.1 D Magnesium 1.8 1.8 Total Bilirubin 0.4 0.4 Direct Bilirubin 0.1 0.1 AST 21 21 ALT 62 H 51 H Alkaline Phosphatase 74 63 Lactate Dehydrogenase 197 C-Reactive Protein 0.10 Total Protein 6.6 5.6 L Albumin 4.3 3.7 Lipase 30 Urine Color Yellow Urine Appearance Clear Urine pH 6.0 Ur Specific [place] 1.010 Urine Protein Negative Urine Glucose (UA) Negative Urine Ketones Negative Urine Blood Negative Urine Nitrite Negative Ur Leukocyte Esterase Negative Urine Test NEGATIVE Stl C. cayetanensis PCR Not Detected Stool Rotavirus A PCR Not Detected Stl Adenov F 40/41 PCR Not Detected Stool Astrovirus (PCR) Not Detected Stool Campylobacter PCR Not Detected Stool Cryptosporidium PCR Not Detected Stl Sh Tox Pr E STEC PCR Not Detected Stool E coli O157 PCR Not applicable Stl Enterotoxigenic E PCR Not Detected Stool EPEC (PCR) Not Detected Stool EAEC (PCR) Not Detected Stl E. histolytica PCR Not Detected Stool Giardia Lamblia PCR Not Detected Stl P. shigelloides PCR Not Detected Stool Salmonella PCR Not Detected Stool Sapovirus (PCR) Not Detected Stl Shigella/EIEC PCR Not Detected St Y.enterocolitica PCR Not Detected Stool Vibrio (PCR) Not Detected Stl Vibrio cholerae PCR Not Detected Stl Norovirus GI/GII PCR Not Detected Urine Opiates Screen Not Detected Ur Buprenorphine Scrn Not Detected Ur Oxycodone Screen Not Detected Urine Methadone Screen Positive H Urine Fentanyl Screen Not Detected Ur Barbiturates Screen Not Detected Ur Phencyclidine Scrn Not Detected Ur Amphetamines Screen Not Detected U Benzodiazepines Scrn Not Detected Urine Cocaine Screen Not Detected U Marijuana (THC) Screen POSITIVE H Ethyl Alcohol < 10 C. difficile Tox B Gene NEGATIVE COVID-19 ([facility]) Negative COVID-19 Clin Com See Note 10/20/23 10/20/23 10/21/23 06:04 Unknown 05:49 WBC 6.9 RBC 4.57 Hgb 13.3 Hct 38.3 MCV 83.8 MCH 29.1 MCHC 34.7 RDW 12.3 Plt Count 249 MPV 9.6 Immature Gran % (Auto) Neut % (Auto) Lymph % (Auto) [place] % (Auto) Eos % (Auto) Baso % (Auto) Lymph # (Auto) [place] # (Auto) Eos # (Auto) Baso # (Auto) Abs Immat Gran (auto) Absolute Neuts (auto) Absolute Nucleated RBC 0.000 Nucleated RBC % (auto) 0.0 ESR Hold Purple Top SEE NOTE Sodium 141 140 Potassium 3.7 3.4 Chloride 107 106 Carbon Dioxide 26 26 Anion Gap 12 11 L BUN 6 L 5 L Creatinine 0.70 0.76 Estim Creat Clear Calc 115.1 106.0 Estimated GFR > 60 > 60 Random Glucose 108 138 H Fasting Glucose Calcium 9.3 9.0 Magnesium Total Bilirubin Direct Bilirubin AST ALT Alkaline Phosphatase Lactate Dehydrogenase C-Reactive Protein Total Protein Albumin Lipase Urine Color Urine Appearance Urine pH Ur Specific [place] Urine Protein Urine Glucose (UA) Urine Ketones Urine Blood Urine Nitrite Ur Leukocyte Esterase Urine Test Stl C. cayetanensis PCR Stool Rotavirus A PCR Stl Adenov F 40/ PCR Stool Astrovirus (PCR) Stool Campylobacter PCR Stool Cryptosporidium PCR Stl Sh Tox Pr E STEC PCR Stool E coli O157 PCR Stl Enterotoxigenic E PCR Stool EPEC (PCR) Stool EAEC (PCR) Stl E. histolytica PCR Stool Giardia Lamblia PCR Stl P. shigelloides PCR Stool Salmonella PCR Stool Sapovirus (PCR) Stl Shigella/EIEC PCR St Y.enterocolitica PCR Stool Vibrio (PCR) Stl Vibrio cholerae PCR Stl Norovirus GI/GII PCR Urine Opiates Screen POSITIVE H Ur Buprenorphine Scrn Not Detected Ur Oxycodone Screen Not Detected Urine Methadone Screen Positive H Urine Fentanyl Screen Not Detected Ur Barbiturates Screen Not Detected Ur Phencyclidine Scrn Not Detected Ur Amphetamines Screen Not Detected U Benzodiazepines Scrn Not Detected Urine Cocaine Screen Not Detected U Marijuana (THC) Screen POSITIVE H Ethyl Alcohol C. difficile Tox B Gene COVID-19 ([facility]) COVID-19 Clin Com 10/22/23 10/23/23 10/24/23 05:23 05:31 05:35 WBC 12.5 H 8.4 RBC 4.68 4.24 Hgb 13.2 12.2 Hct 39.2 35.8 L MCV 83.8 84.4 MCH 28.2 28.8 MCHC 33.7 34.1 RDW 12.1 12.4 Plt Count 266 240 MPV 9.6 9.6 Immature Gran % (Auto) Neut % (Auto) Lymph % (Auto) [place] % (Auto) Eos % (Auto) Baso % (Auto) Lymph # (Auto) [place] # (Auto) Eos # (Auto) Baso # (Auto) Abs Immat Gran (auto) Absolute Neuts (auto) Absolute Nucleated RBC 0.000 0.000 Nucleated RBC % (auto) 0.0 0.0 ESR Hold Purple Top SEE NOTE Sodium 141 141 141 Potassium 3.9 3.8 3.2 L Chloride 108 106 107 Carbon Dioxide 25 26 27 Anion Gap 12 13 10 L BUN 4 L 7 L 5 L Creatinine 0.72 0.74 0.72 Estim Creat Clear Calc 111.9 108.9 111.9 Estimated GFR > 60 > 60 > 60 Random Glucose 83 82 105 Fasting Glucose Calcium 8.8 9.3 8.2 L D Magnesium Total Bilirubin 0.3 0.1 Direct Bilirubin 0.1 < 0.2 AST 56 H 31 ALT 109 H 77 H Alkaline Phosphatase 69 59 Lactate Dehydrogenase C-Reactive Protein Total Protein 5.9 L 4.9 L Albumin 3.7 3.2 L Lipase Urine Color Urine Appearance Urine pH Ur Specific [place] Urine Protein Urine Glucose (UA) Urine Ketones Urine Blood Urine Nitrite Ur Leukocyte Esterase Urine Test Stl C. cayetanensis PCR Stool Rotavirus A PCR Stl Adenov F 40/41 PCR Stool Astrovirus (PCR) Stool Campylobacter PCR Stool Cryptosporidium PCR Stl Sh Tox Pr E STEC PCR Stool E coli O157 PCR Stl Enterotoxigenic E PCR Stool EPEC (PCR) Stool EAEC (PCR) Stl E. histolytica PCR Stool Giardia Lamblia PCR Stl P. shigelloides PCR Stool Salmonella PCR Stool Sapovirus (PCR) Stl Shigella/EIEC PCR St Y.enterocolitica PCR Stool Vibrio (PCR) Stl Vibrio cholerae PCR Stl Norovirus GI/GII PCR Urine Opiates Screen Ur Buprenorphine Scrn Ur Oxycodone Screen Urine Methadone Screen Urine Fentanyl Screen Ur Barbiturates Screen Ur Phencyclidine Scrn Ur Amphetamines Screen U Benzodiazepines Scrn Urine Cocaine Screen U Marijuana (THC) Screen Ethyl Alcohol C. difficile Tox B Gene COVID-19 ([facility]) COVID-19 Clin Com Airway Mallampati Class: II TM Dist: <=3cm Neck ROM: Full Loose/Missing/Broken Teeth: No Heart: ok Lungs: ok Assessment and Plan Assessment Anesthesia Assessment: Anesthesia Plan Discussed and Chart Reviewed Final Anesthetic Review Family History of Problems with Anesthesia: No History of Problems with Anesthesia: No NPO: Yes ASA Class: II Final Preanesthetic Review: No Changes in Pt Med Stat, Meds/Allgs Chart Reviewed, Consent Obtained/Reviewed and Anes Risks/Benef Reviewed Patient Risk: Intermediate Procedure Risk: Intermediate Anesthetic Plan Anesthetic Plan: Agree w/ Assess. and Plan and TIVA Disposition: Standard PACU
--- NOTE | 2023-10-24 13:28 | W.PM.OPN ---
Operative Note Operative Note Date of Service: 10/24/23 Narrative: Procedure Description: EGD Indication: abdominal pain Anesthesia: MAC FLEXIBLE TRANSORAL UPPER GASTROINTESTINAL ENDOSCOPY UPPER ENDOSCOPY Consent: Indications for the procedure and potential complications of bleeding, perforation, reaction to medications and missed diagnosis were discussed with the patient and informed consent was obtained. Instrument: Olympus GIF H 190 J mid size upper endoscope Monitoring: Vital signs and clinical assessment, continuous EKG monitoring, Pulse oximetry, Carbon Dioxide monitoring and blood pressure monitoring were done throughout the procedure. Procedure: The patient was placed in the left lateral decubitis position and pre-procedure medications were administered and a bite block was placed. The endoscope was inserted into the mouth and advanced under direct vision to the third part of duodenum. A careful inspection was made as the upper endoscope was withdrawn including a retroflexed examination of the proximal stomach; Findings and interventions are described below. Findings: Larynx:normal Esophagus: GE junction at 36 cm, diaphragm hiatus at 36 cm, normal mucosa Stomach: atrophic mucosa with scarring and erythema . Biopsies were obtained. Grade 2 flap valve on retroflexed examination of the cardia. Duodenum: Patchy erythema and nodular mucosa, bx taken Intervention: Biopsies as noted above, Impression/Findings: atrophic gastritis enteritis PLAN: check celiac serologies if H pylori pos treat await mesenteric LN path GERD precautions
[2023-10-24 13:36] VITALS: BP 82/48; PULSE 54; RESP 18; TEMP 36.5; O2SAT 91
--- NOTE | 2023-10-24 13:38 | MHC.CM.PN ---
EMR REVIEWED AND PER MD ROUNDS, PT NOT MEDICALLY CLEARED FOR DC (WILL HAVE EGD TODAY, CONTINUES WITH N/V) CM WILL CONTINUE TO FOLLOW FOR ANY CHANGE TO DC PLAN/NEEDS.
[2023-10-24 13:52] VITALS: BP 115/66; PULSE 72; RESP 17; TEMP 36.1; O2SAT 96
[2023-10-24 14:30] VITALS: BP 131/67; PULSE 52; RESP 18; TEMP 36.8; O2SAT 97
[2023-10-24] MEDS: Milk of Magnesia 30 ML ORAL.SUSP PO (14:41)
[2023-10-24] MEDS: polyethylene glycoL 3350 17 GM POWD.PACK PO (14:45)
[2023-10-24] MEDS: 0.9 % Sodium Chloride Flush 3 ML SYRINGE IVFLUSH ×2 (14:46→21:06)
[2023-10-24] MEDS: Sucralfate Oral Suspension 1 GM/10 ML ORAL.SUSP PO ×2 (16:36→20:22)
[2023-10-24 19:45] VITALS: BP 124/73; PULSE 71; RESP 18; TEMP 36.9; O2SAT 96
[2023-10-25] MEDS: HYDROmorphone HCl 0.5 MG/0.5 ML SYRINGE 1 MG IVPUSH ×6 (02:31→20:59)
[2023-10-25 05:57] VITALS: BP 111/70; PULSE 51; RESP 18; TEMP 36.6; O2SAT 95
[2023-10-25] MEDS: Pantoprazole Sodium 40 MG/10 ML VIAL IVPUSH ×2 (06:03→15:34)
[2023-10-25] MEDS: Lactated Ringers 1,000 ML 80 ML IVCONT (06:04)
[2023-10-25] MEDS: DULoxetine HCl 30 MG CAPSULE.DR PO (07:52)
[2023-10-25] MEDS: Sucralfate Oral Suspension 1 GM/10 ML ORAL.SUSP PO ×4 (07:52→20:12)
[2023-10-25] MEDS: methocarbamoL 500 MG TABLET 1000 MG PO ×3 (07:53→20:12)
[2023-10-25] MEDS: Famotidine 20 MG TABLET PO ×2 (07:53→20:12)
[2023-10-25] MEDS: DULoxetine HCl 60 MG CAPSULE.DR PO (07:53)
[2023-10-25] MEDS: busPIRone HCl 5 MG TABLET 15 MG PO ×2 (07:53→20:12)
[2023-10-25] MEDS: Gabapentin 400 MG CAPSULE 800 MG PO ×3 (07:53→20:12)
[2023-10-25] MEDS: 0.9 % Sodium Chloride Flush 3 ML SYRINGE IVFLUSH ×3 (07:54→20:59)
--- NOTE | 2023-10-25 08:27 | P.PNGS_ITS ---
Subjective Subjective Date of Service: 10/25/23 Interval history: States she feels better Tolerating diet Still having some vague abdominal pain Physical Exam 2 Vital Signs: Vital Signs: Last Vital Signs Temp 97.8 F 10/25/23 05:57 Pulse 51 10/25/23 05:57 Resp 18 10/25/23 05:57 BP 111/70 10/25/23 05:57 Pulse Ox 95 10/25/23 05:57 O2 Del Method Room Air 10/25/23 05:57 O2 Flow Rate 2 10/22/23 11:33 BMI result Body Mass Index 29.9 Const: General: comfortable and no acute distress Eyes: Other: Nonicteric Resp: Effort & Inspection: normal respiratory effort GI: Other: Incisions clean and dry Palpation (GI): Soft to palpation and not firm Objective Data Active Medications Acetaminophen (Acetaminophen 325 Mg Tablet) 650 mg PO Q6H PRN PRN Reason: Pain, Mild (Pain Scale 1-3), fever or headache Last Admin: 10/23/23 07:35 Dose: 650 mg Documented By: ZACH Albuterol Sulfate (Albuterol Sulfate 90 Mcg 8 Gm Inhaler) 2 puff INHALE RQ4H PRN PRN Reason: sob Buspirone HCl (Buspirone Hcl 5 Mg Tablet) 15 mg PO BID [facility] Last Admin: 10/25/23 07:53 Dose: 15 mg Documented By: ARSENIO Calcium Carbonate (Calcium Carbonate 750 Mg Tab.Chew) 750 mg PO Q4H PRN PRN Reason: Heartburn Duloxetine HCl (Duloxetine Hcl 60 Mg Capsule.) 60 mg PO DAILY [facility] Last Admin: 10/25/23 07:53 Dose: 60 mg Documented By: ARSENIO Duloxetine HCl (Duloxetine Hcl 30 Mg Capsule.) 30 mg PO DAILY [facility] Last Admin: 10/25/23 07:52 Dose: 30 mg Documented By: ARSENIO Enoxaparin Sodium (Enoxaparin Sodium 40 Mg/0.4 Ml Syringe) 40 mg SUBCUT Q24H [facility] Last Admin: 10/24/23 09:40 Dose: 40 mg Documented By: FOGARTB Famotidine (Famotidine 20 Mg Tablet) 20 mg PO BID [facility] Last Admin: 10/25/23 07:53 Dose: 20 mg Documented By: ARSENIO Gabapentin (Gabapentin 400 Mg Capsule) 800 mg PO TID [facility] Last Admin: 10/25/23 07:53 Dose: 800 mg Documented By: ARSENIO Hydromorphone HCl (Hydromorphone Hcl 0.5 Mg/0.5 Ml Syringe) 1 mg IVPUSH Q3H PRN; Protocol PRN Reason: Pain, Severe (Pain Scale 7-10) Last Admin: 10/25/23 06:21 Dose: 1 mg Documented By: RADHA Lactated Ringer's (Lr) 1,000 mls @ 80 mls/hr IVCONT .[id number] [facility] Last Admin: 10/25/23 06:04 Dose: 80 mls/hr Documented By: RADHA Lidocaine (Lidocaine 5 % Ointment 35 Gm) 1 appl TOPICAL Q6H PRN; Protocol PRN Reason: Pain, Mild (Pain Scale 1-3) Last Admin: 10/21/23 10:32 Dose: 1 appl Documented By: TRISTON Lorazepam (Lorazepam 0.5 Mg Tablet) 0.5 mg PO QID PRN PRN Reason: Anxiety Last Admin: 10/24/23 20:21 Dose: 0.5 mg Documented By: RADHA Magnesium Hydroxide (Milk Of Magnesia 30 Ml Oral.Susp) 30 ml PO DAILY PRN PRN Reason: Constipation Last Admin: 10/24/23 14:41 Dose: 30 ml Documented By: FRANCESARTLaurie Melatonin (Melatonin 3 Mg Tablet) 6 mg PO BEDTIME PRN PRN Reason: Insomnia Methocarbamol (Methocarbamol 500 Mg Tablet) 1,000 mg PO TID [facility] Last Admin: 10/25/23 07:53 Dose: 1,000 mg Documented By: ARSENIO Naloxone HCl (Naloxone Hcl 0.4 Mg/Ml Vial) 0.04 mg IVPUSH Q5M PRN PRN Reason: Excessive sedation or RR < 8 Ondansetron HCl (Ondansetron Hcl 4 Mg/2 Ml Vial) 4 mg IVPUSH Q6H PRN PRN Reason: Nausea and Vomiting Last Admin: 10/24/23 21:05 Dose: 4 mg Documented By: RADHA Oxycodone HCl (Oxycodone Hcl Immed Release 5 Mg Tablet) 10 mg PO Q6H PRN PRN Reason: Pain, Moderate(Pain Scale 4-6) Last Admin: 10/24/23 12:31 Dose: 10 mg Documented By: LAUREL Pantoprazole Sodium (Pantoprazole Sodium 40 Mg/10 Ml Vial) 40 mg IVPUSH BID@0630,1630 [facility] Last Admin: 10/25/23 06:03 Dose: 40 mg Documented By: RADHA Polyethylene Glycol (Polyethylene Glycol 3350 17 Gm Powd.Pack) 17 gm PO DAILY [facility] Last Admin: 10/25/23 07:55 Dose: Not Given Documented By: ARSENIO Non-Admin Reason: Patient Refused Prochlorperazine Edisylate (Prochlorperazine Edisylate 10 Mg/2 Ml Vial) 5 mg IVPUSH Q6H PRN PRN Reason: Nausea and Vomiting Psyllium Hydrophilic Mucilloid (Psyllium Seed 3.7 Gm Packet) 3.7 gm PO BEDTIME [facility] Last Admin: 10/24/23 20:22 Dose: Not Given Documented By: RADHA Non-Admin Reason: Patient Refused Simethicone (Simethicone 80 Mg Tab.Chew) 80 mg PO QIDWMHS PRN PRN Reason: Gas Sodium Chloride (0.9 % Sodium Chloride Flush 3 Ml Syringe) 3 ml IVFLUSH QSHIFT [facility] Last Admin: 10/25/23 07:54 Dose: 3 ml Documented By: ARSENIO Sucralfate (Sucralfate Oral Suspension 1 Gm/10 Ml Oral.Susp) 1 gm PO QIDACHS [facility] Last Admin: 10/25/23 07:52 Dose: 1 gm Documented By: ARSENIO Labs 10/24/23 05:35 10/24/23 05:35 Procedures Date of Service Date of Service: 10/25/23 Progress Note: A&P Assessment and plan (1) Biliary dyskinesia: Status: Acute Assessment and Plan: Status post lap fazal Able to tolerate diet better With persistent abdominal pain GI following Path for gallbladder pending Care as per hospitalist service Time Spent With Patient Time: Total time managing care of this patient today ____ minutes. Quality Stroke Does the patient have a stroke diagnosis?: No VTE Prior VTE?: No VTE Risk Level:: Medical - low VTE Device Contraindication: Treatment Not Indicated VTE Drug Contraindication: Treatment Not Indicated
[2023-10-25 08:31] VITALS: BP 129/79; PULSE 56; RESP 18; O2SAT 96
[2023-10-25] MEDS: oxyCODONE HCl Immed Release 5 MG TABLET 10 MG PO ×2 (08:52→16:41)
[2023-10-25] MEDS: ondansetron HCL 4 MG/2 ML VIAL IVPUSH (11:08)
[2023-10-25] MEDS: Enoxaparin Sodium 40 MG/0.4 ML SYRINGE SUBCUT (11:35)
[2023-10-25 13:13] VITALS: O2SAT 97
--- NOTE | 2023-10-25 13:32 | HO.POSTANES ---
Post Anesthesia Evaluation Post Anesthesia Evaluation Date of Service: 10/24/23 Vital Signs: Vital Signs Temp Pulse Resp BP Pulse Ox O2 Del Method 10/25/23 08:31 56 18 129/79 96 Room Air 10/25/23 05:57 97.8 F 51 18 111/70 95 Room Air Anesthesia: Monitored Mental Status: Awake Pain Control: Satisfactory Nausea/Vomiting: None Hydration: Adequate Anesthesia-Related Issues: No Anes. Related Issues
[2023-10-25 14:00] VITALS: BP 130/82; PULSE 65; RESP 18; TEMP 37.5; O2SAT 97
--- NOTE | 2023-10-25 14:34 | P.PNIM_ITS ---
Subjective Subjective Date of Service: 10/25/23 Interval History: Seen and examined this morning Follow-up for abdominal pain, biliary dyskinesia status post cholecystectomy and EGD Abdominal pain improving, tolerating diet Review of Systems Review of Systems: Yes all other systems are reviewed and are negative Constitutional Constitutional: Denies fever(s) Physical Exam 2 Vital Signs: Vital Signs: Last Vital Signs Temp 99.5 F 10/25/23 14:00 Pulse 65 10/25/23 14:00 Resp 18 10/25/23 14:00 BP 130/82 10/25/23 14:00 Pulse Ox 97 10/25/23 14:00 O2 Del Method Room Air 10/25/23 14:00 O2 Flow Rate 2 10/22/23 11:33 BMI result Body Mass Index 29.9 Const: Other: Constitutional : Awake, interactive, not in distress Neck : Normal inspection, Supple Cardiovascular : RRR, no JVP, no lower extremity edema Respiratory : good bilateral air entry, no crackles, wheezes or rhonchi Gastrointestinal: soft, lax, Normal bowel sounds, tenderness at surgery site , Left back\loin tenderness significantly better Skin : Warm, Dry Neurological : Alert & oriented x3, No focal deficit GI: Other: Mild incisional tenderness, soft, nondistended Palpation (GI): Soft to palpation Objective Data Active Medications Acetaminophen (Acetaminophen 325 Mg Tablet) 650 mg PO Q6H PRN PRN Reason: Pain, Mild (Pain Scale 1-3), fever or headache Last Admin: 10/23/23 07:35 Dose: 650 mg Documented By: ZACH Albuterol Sulfate (Albuterol Sulfate 90 Mcg 8 Gm Inhaler) 2 puff INHALE RQ4H PRN PRN Reason: sob Buspirone HCl (Buspirone Hcl 5 Mg Tablet) 15 mg PO BID [facility] Last Admin: 10/25/23 07:53 Dose: 15 mg Documented By: ARSENIO Calcium Carbonate (Calcium Carbonate 750 Mg Tab.Chew) 750 mg PO Q4H PRN PRN Reason: Heartburn Duloxetine HCl (Duloxetine Hcl 60 Mg Capsule.) 60 mg PO DAILY [facility] Last Admin: 10/25/23 07:53 Dose: 60 mg Documented By: ARSENIO Duloxetine HCl (Duloxetine Hcl 30 Mg Capsule.) 30 mg PO DAILY [facility] Last Admin: 10/25/23 07:52 Dose: 30 mg Documented By: ARSENIO Enoxaparin Sodium (Enoxaparin Sodium 40 Mg/0.4 Ml Syringe) 40 mg SUBCUT Q24H [facility] Last Admin: 10/25/23 11:35 Dose: 40 mg Documented By: ARSENIO Famotidine (Famotidine 20 Mg Tablet) 20 mg PO BID [facility] Last Admin: 10/25/23 07:53 Dose: 20 mg Documented By: ARSENIO Gabapentin (Gabapentin 400 Mg Capsule) 800 mg PO TID [facility] Last Admin: 10/25/23 14:08 Dose: 800 mg Documented By: ARSENIO Hydromorphone HCl (Hydromorphone Hcl 0.5 Mg/0.5 Ml Syringe) 1 mg IVPUSH Q3H PRN; Protocol PRN Reason: Pain, Severe (Pain Scale 7-10) Last Admin: 10/25/23 14:09 Dose: 1 mg Documented By: ARSENIO Lactated Ringer's (Lr) 1,000 mls @ 80 mls/hr IVCONT .[id number] [facility] Last Admin: 10/25/23 06:04 Dose: 80 mls/hr Documented By: RADHA Lidocaine (Lidocaine 5 % Ointment 35 Gm) 1 appl TOPICAL Q6H PRN; Protocol PRN Reason: Pain, Mild (Pain Scale 1-3) Last Admin: 10/21/23 10:32 Dose: 1 appl Documented By: TRISTON Lorazepam (Lorazepam 0.5 Mg Tablet) 0.5 mg PO QID PRN PRN Reason: Anxiety Last Admin: 10/24/23 20:21 Dose: 0.5 mg Documented By: RADHA Magnesium Hydroxide (Milk Of Magnesia 30 Ml Oral.Susp) 30 ml PO DAILY PRN PRN Reason: Constipation Last Admin: 10/24/23 14:41 Dose: 30 ml Documented By: FOGARTLaurie Melatonin (Melatonin 3 Mg Tablet) 6 mg PO BEDTIME PRN PRN Reason: Insomnia Methocarbamol (Methocarbamol 500 Mg Tablet) 1,000 mg PO TID [facility] Last Admin: 10/25/23 14:08 Dose: 1,000 mg Documented By: ARSENIO Naloxone HCl (Naloxone Hcl 0.4 Mg/Ml Vial) 0.04 mg IVPUSH Q5M PRN PRN Reason: Excessive sedation or RR < 8 Ondansetron HCl (Ondansetron Hcl 4 Mg/2 Ml Vial) 4 mg IVPUSH Q6H PRN PRN Reason: Nausea and Vomiting Last Admin: 10/25/23 11:08 Dose: 4 mg Documented By: ARSENIO Oxycodone HCl (Oxycodone Hcl Immed Release 5 Mg Tablet) 10 mg PO Q6H PRN PRN Reason: Pain, Moderate(Pain Scale 4-6) Last Admin: 10/25/23 08:52 Dose: 10 mg Documented By: ARSENIO Pantoprazole Sodium (Pantoprazole Sodium 40 Mg/10 Ml Vial) 40 mg IVPUSH BID@0630,1630 [facility] Last Admin: 10/25/23 06:03 Dose: 40 mg Documented By: RADHA Polyethylene Glycol (Polyethylene Glycol 3350 17 Gm Powd.Pack) 17 gm PO DAILY [facility] Last Admin: 10/25/23 07:55 Dose: Not Given Documented By: ARSENIO Non-Admin Reason: Patient Refused Prochlorperazine Edisylate (Prochlorperazine Edisylate 10 Mg/2 Ml Vial) 5 mg IVPUSH Q6H PRN PRN Reason: Nausea and Vomiting Psyllium Hydrophilic Mucilloid (Psyllium Seed 3.7 Gm Packet) 3.7 gm PO BEDTIME [facility] Last Admin: 10/24/23 20:22 Dose: Not Given Documented By: RADHA Non-Admin Reason: Patient Refused Simethicone (Simethicone 80 Mg Tab.Chew) 80 mg PO QIDWMHS PRN PRN Reason: Gas Sodium Chloride (0.9 % Sodium Chloride Flush 3 Ml Syringe) 3 ml IVFLUSH QSHIFT [facility] Last Admin: 10/25/23 07:54 Dose: 3 ml Documented By: ARSENIO Sucralfate (Sucralfate Oral Suspension 1 Gm/10 Ml Oral.Susp) 1 gm PO QIDACHS [facility] Last Admin: 10/25/23 11:35 Dose: 1 gm Documented By: ARSENIO Labs 10/24/23 05:35 10/25/23 14:10 Assessment and Plan (1) Biliary dyskinesia: Status: Acute Plan 33F PMH becets, EDS, melanoma s/p excision 2019, splenomegaly, fibromyalgia, mild intermittent asthma, chronic pain syndrome, mood disorder, interstitial cystitis presented with abdominal pain Biliary dyskinesa post Lap Shayy POD 3 cholecystectomy, biopsy of mesenteric lymph node for biliary dyskinesia, mesenteric lymphadenopathy HIDA scan no obstruction but some abnormalities reported with emptying; dyskinesia Tolerating regular diet pain management Intractable abdominal pain Possibe PUD\GB dyskinesia CT abdomen showing enlarged RUQ LN which seems to be chronic GI input appreciated; GI Series, HIDA scan GI series concerning for possible PUD; Continue IV PPI and Famotidine, s/p EGD Muscle relaxant change to Methocarbamol with good response; Left loin pain resolved PRN dilaudid for pain Zofran for nausea Mild intermittent asthma Albuterol as needed Uterine prolapse Discussed with dr Hudson, Outpatient follow up. Low risk for DVT Lovenox Full code The patient will need overnight hospital stay post lap isra - PT recommended short-term rehab, also awaiting safe disposition Quality Stroke Does the patient have a stroke diagnosis?: No VTE Prior VTE?: No VTE Risk Level:: Medical - low VTE Device Contraindication: Treatment Not Indicated VTE Drug Contraindication: Treatment Not Indicated
--- NOTE | 2023-10-25 15:04 | MHC.CM.PN ---
P.Nish. REC STR, BROAD REFERRALS SENT TO CENTERS CONTRACTED WITH HER INSURANCE LOCALLY WITH NO BED OFFERS OF YET. CM WILL CONTINUE TO AWAIT BED OFFERS AND WILL EXPAND REFERRALS NEEDED.
[2023-10-25 15:46] VITALS: BP 135/84; PULSE 53; RESP 18; TEMP 36.6; O2SAT 96
[2023-10-25 15:50] LABS: Alanine Aminotransferase 70 U/L (0-31); Albumin Level 3.5 g/dL (3.5-5.0); Alkaline Phosphatase 64 U/L (39-117); Anion Gap 10 (12-20); Aspartate Amino Transferase 26 U/L (5-31); Bilirubin Direct < 0.2 mg/dL (0.0-0.5); Bilirubin Total 0.2 mg/dL (0.0-1.0); Blood Urea Nitrogen 4 mg/dL (9-16); Calcium 9.1 mg/dL (8.4-10.2); Carbon Dioxide 30 mmol/L (22-29); Chloride 104 mmol/L (96-108); Creatinine Clr Calc Pharmacy 110.3; Estimated Glomerular Filt Rate > 60; Glucose Random 84 mg/dL (60-115); Potassium 4.4 mmol/L (3.3-5.1); Sodium 140 mmol/L (135-145); Total Protein 5.5 g/dL (6.5-8.0)
[2023-10-25 19:44] VITALS: BP 112/69; PULSE 68; RESP 18; TEMP 36.1; O2SAT 96
[2023-10-25 23:34] LABS: Gliadin Deamidated IgA Ab <1.0 U/mL; Gliadin Deamidated IgG Ab <1.0 U/mL; Immunoglobulin A <5 mg/dL (47-310); Transglutaminase Ab IgG <1.0 U/mL; Transglutaminase IgA <1.0 U/mL
[2023-10-26] MEDS: HYDROmorphone HCl 0.5 MG/0.5 ML SYRINGE 1 MG IVPUSH ×2 (00:43→03:53)
[2023-10-26 03:19] VITALS: BP 111/61; PULSE 58; RESP 16; TEMP 36; O2SAT 96
[2023-10-26] MEDS: oxyCODONE HCl Immed Release 5 MG TABLET 10 MG PO ×3 (04:45→18:05)
[2023-10-26] MEDS: Sucralfate Oral Suspension 1 GM/10 ML ORAL.SUSP PO ×3 (07:42→15:34)
[2023-10-26] MEDS: polyethylene glycoL 3350 17 GM POWD.PACK PO (07:42)
[2023-10-26] MEDS: 0.9 % Sodium Chloride Flush 3 ML SYRINGE IVFLUSH ×2 (07:42→14:21)
[2023-10-26] MEDS: Gabapentin 400 MG CAPSULE 800 MG PO ×2 (07:43→14:19)
[2023-10-26] MEDS: DULoxetine HCl 60 MG CAPSULE.DR PO (07:43)
[2023-10-26] MEDS: DULoxetine HCl 30 MG CAPSULE.DR PO (07:43)
[2023-10-26] MEDS: busPIRone HCl 5 MG TABLET 15 MG PO (07:43)
[2023-10-26] MEDS: Famotidine 20 MG TABLET PO (07:43)
[2023-10-26] MEDS: methocarbamoL 500 MG TABLET 1000 MG PO ×2 (07:44→14:18)
[2023-10-26 07:55] VITALS: BP 113/69; PULSE 60; RESP 18; TEMP 36.1; O2SAT 98
[2023-10-26] MEDS: HYDROmorphone HCl 0.5 MG/0.5 ML SYRINGE IVPUSH ×3 (07:59→15:06)
--- NOTE | 2023-10-26 08:32 | MHC.CM.PN ---
[facility] HAS OFFERED A BED AND PT ACCEPTS BED OFFER. [facility] HAS SUBMITTED FOR INSURANCE AUTH. CM WILL CONTINUE TO FOLLOW.
[2023-10-26] MEDS: Enoxaparin Sodium 40 MG/0.4 ML SYRINGE SUBCUT (11:18)
--- NOTE | 2023-10-26 11:55 | MHC.CM.PN ---
Addendum entered by Kristi Smith RN 10/26/23 15:25: [facility] obtained insurance auth. BLS transport scheduled for 5pm. RN, PA and patient aware. Patient requesting private room. Aware that she will not have a roommate at this time, and that [facility] reports they have several open beds. They have agreed to try not to place a roommate, but she understands that it's a possibility. Original Note: Per MD rounds patient medically cleared for dc. Accepted by [facility] and auth is pending. CM will continue to follow.
[2023-10-26 13:00] VITALS: O2SAT 96
[2023-10-26] MEDS: LORazepam 0.5 MG TABLET PO (13:00)
--- NOTE | 2023-10-26 13:52 | HO.PM.IMPN ---
Subjective Subjective Date of Service: 10/26/23 Interval History: Seen and examined this morning Follow-up for abdominal pain status post cholecystectomy still with some antoinette-incisional pain Physical Exam Vital Signs: Vital Signs: Last Vital Signs Temp 96.9 F 10/26/23 07:55 Pulse 60 10/26/23 07:55 Resp 18 10/26/23 07:55 BP 113/69 10/26/23 07:55 Pulse Ox 98 10/26/23 07:55 O2 Del Method Room Air 10/26/23 07:55 O2 Flow Rate 2 10/22/23 11:33 BMI result Body Mass Index 29.9 Objective Data Active Medications Acetaminophen (Acetaminophen 325 Mg Tablet) 650 mg PO Q6H PRN PRN Reason: Pain, Mild (Pain Scale 1-3), fever or headache Last Admin: 10/23/23 07:35 Dose: 650 mg Documented By: ZACH Albuterol Sulfate (Albuterol Sulfate 90 Mcg 8 Gm Inhaler) 2 puff INHALE RQ4H PRN PRN Reason: sob Buspirone HCl (Buspirone Hcl 5 Mg Tablet) 15 mg PO BID [facility] Last Admin: 10/26/23 07:43 Dose: 15 mg Documented By: ARSENIO Calcium Carbonate (Calcium Carbonate 750 Mg Tab.Chew) 750 mg PO Q4H PRN PRN Reason: Heartburn Duloxetine HCl (Duloxetine Hcl 60 Mg Capsule.) 60 mg PO DAILY [facility] Last Admin: 10/26/23 07:43 Dose: 60 mg Documented By: ARSENIO Duloxetine HCl (Duloxetine Hcl 30 Mg Capsule.) 30 mg PO DAILY [facility] Last Admin: 10/26/23 07:43 Dose: 30 mg Documented By: ARSENIO Enoxaparin Sodium (Enoxaparin Sodium 40 Mg/0.4 Ml Syringe) 40 mg SUBCUT Q24H [facility] Last Admin: 10/26/23 11:18 Dose: 40 mg Documented By: ARSENIO Famotidine (Famotidine 20 Mg Tablet) 20 mg PO BID [facility] Last Admin: 10/26/23 07:43 Dose: 20 mg Documented By: ARSENIO Gabapentin (Gabapentin 400 Mg Capsule) 800 mg PO TID [facility] Last Admin: 10/26/23 07:43 Dose: 800 mg Documented By: ARSENIO Hydromorphone HCl (Hydromorphone Hcl 0.5 Mg/0.5 Ml Syringe) 0.5 mg IVPUSH Q3H PRN; Protocol PRN Reason: Pain, Severe (Pain Scale 7-10) Last Admin: 10/26/23 11:15 Dose: 0.5 mg Documented By: ARSENIO Lidocaine (Lidocaine 5 % Ointment 35 Gm) 1 appl TOPICAL Q6H PRN; Protocol PRN Reason: Pain, Mild (Pain Scale 1-3) Last Admin: 10/21/23 10:32 Dose: 1 appl Documented By: TRISTON Lorazepam (Lorazepam 0.5 Mg Tablet) 0.5 mg PO QID PRN PRN Reason: Anxiety Last Admin: 10/26/23 13:00 Dose: 0.5 mg Documented By: BOB Magnesium Hydroxide (Milk Of Magnesia 30 Ml Oral.Susp) 30 ml PO DAILY PRN PRN Reason: Constipation Last Admin: 10/24/23 14:41 Dose: 30 ml Documented By: REYES Melatonin (Melatonin 3 Mg Tablet) 6 mg PO BEDTIME PRN PRN Reason: Insomnia Methocarbamol (Methocarbamol 500 Mg Tablet) 1,000 mg PO TID [facility] Last Admin: 10/26/23 07:44 Dose: 1,000 mg Documented By: ARSENIO Naloxone HCl (Naloxone Hcl 0.4 Mg/Ml Vial) 0.04 mg IVPUSH Q5M PRN PRN Reason: Excessive sedation or RR < 8 Ondansetron HCl (Ondansetron Hcl 4 Mg/2 Ml Vial) 4 mg IVPUSH Q6H PRN PRN Reason: Nausea and Vomiting Last Admin: 10/25/23 11:08 Dose: 4 mg Documented By: ARSENIO Oxycodone HCl (Oxycodone Hcl Immed Release 5 Mg Tablet) 10 mg PO Q6H PRN PRN Reason: Pain, Moderate(Pain Scale 4-6) Last Admin: 10/26/23 13:01 Dose: 10 mg Documented By: BOB Polyethylene Glycol (Polyethylene Glycol 3350 17 Gm Powd.Pack) 17 gm PO DAILY [facility] Last Admin: 10/26/23 07:42 Dose: 17 gm Documented By: ARSENIO Prochlorperazine Edisylate (Prochlorperazine Edisylate 10 Mg/2 Ml Vial) 5 mg IVPUSH Q6H PRN PRN Reason: Nausea and Vomiting Psyllium Hydrophilic Mucilloid (Psyllium Seed 3.7 Gm Packet) 3.7 gm PO BEDTIME [facility] Last Admin: 10/25/23 20:12 Dose: Not Given Documented By: RADHA Non-Admin Reason: Patient Refused Simethicone (Simethicone 80 Mg Tab.Chew) 80 mg PO QIDWMHS PRN PRN Reason: Gas Sodium Chloride (0.9 % Sodium Chloride Flush 3 Ml Syringe) 3 ml IVFLUSH QSHIFT [facility] Last Admin: 10/26/23 07:42 Dose: 3 ml Documented By: ARSENIO Sucralfate (Sucralfate Oral Suspension 1 Gm/10 Ml Oral.Susp) 1 gm PO QIDACHS [facility] Last Admin: 10/26/23 11:18 Dose: 1 gm Documented By: ARSENIO Labs 10/24/23 05:35 10/25/23 14:10 Labs: Laboratory Results - last 24 hr 10/24/23 10/25/23 14:45 14:10 Anion Gap 10 L Estim Creat Clear Calc 110.3 Estimated GFR > 60 Random Glucose 84 Calcium 9.1 D Total Bilirubin 0.2 Direct Bilirubin < 0.2 AST 26 ALT 70 H Alkaline Phosphatase 64 Total Protein 5.5 L Albumin 3.5 IgA <5 L Tiss Transglutamin IgG <1.0 Tiss Transglutamin IgA <1.0 Anti-Gliadin IgG Ab <1.0 Gliadin (Deamidat) IgA <1.0 Quality Stroke Does the patient have a stroke diagnosis?: No VTE Prior VTE?: No VTE Risk Level:: Medical - low VTE Device Contraindication: Treatment Not Indicated VTE Drug Contraindication: Treatment Not Indicated
--- NOTE | 2023-10-26 13:57 | PM.DS ---
DS: Providers Provider Date of Service: 10/26/23 Date of admission: 10/20/23 12:36 Date of discharge: 10/26/23 Primary care physician: None Physician Consults: 10/19/23 01:47 Consult to Gastroenterology Routine Consulting Provider: Shima Mota Reason for consultation: abd pain 10/21/23 13:00 Consult to General Surgery Routine Consulting Provider: [facility] General Surgeons Reason for consultation: recurrent RUQ pain, Abnormal HIDA scan; emptying. 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 Patient reports pain has been going on for about 3 weeks. Started mid epigastric, radiates to right upper quadrant. Worse with food associated with loose diarrhea. Also had some vomiting. Recently started radiating to back specifically left side. In ED ALT noted to be elevated to the 60s, abdominal ultrasound negative, CT abdomen done but report pending Biliary dyskinesa POD 4 s/p cholecystectomy, biopsy of mesenteric lymph node for biliary dyskinesia, mesenteric lymphadenopathy HIDA scan no obstruction but some abnormalities reported with emptying; dyskinesia Tolerating regular diet. will need outpatient follow up with general surgery, post operative instruction in d/c paperwork Intractable abdominal pain Possibe PUD\GB dyskinesia GI series concerning for possible PUD; Initially treated with IV PPI and Famotidine, s/p EGD showing atrophic gastritis/enteritis. Celiac serologies pending negative for H pylori. Lymph node pathology negative for malignancy. Muscle relaxant change to Methocarbamol with good response; Left loin pain resolved Time Attestation Discharge Coordination Time (in mins): 36 Quality: Safe Use of Opioids Does Pt have an Active Cancer Diagnosis on the Problem List?: No Quality: Stroke Does the patient have a stroke diagnosis?: No Physical Exam Vital Signs: Vital Signs: Last Vital Signs Temp 96.9 F 10/26/23 07:55 Pulse 60 10/26/23 07:55 Resp 18 10/26/23 07:55 BP 113/69 10/26/23 07:55 Pulse Ox 98 10/26/23 07:55 O2 Del Method Room Air 10/26/23 07:55 O2 Flow Rate 2 10/22/23 11:33 BMI result Body Mass Index 29.9 Const: Other: Constitutional : Awake, interactive, not in distress Neck : Normal inspection, Supple Cardiovascular : RRR, no JVP, no lower extremity edema Respiratory : good bilateral air entry, no crackles, wheezes or rhonchi Gastrointestinal: soft, lax, Normal bowel sounds, tenderness at surgery site , Left back\loin tenderness significantly better Skin : Warm, Dry Neurological : Alert & oriented x3, No focal deficit GI: Other: Mild incisional tenderness, soft, nondistended Palpation (GI): Soft to palpation DS: Data Data Completed and Pending Completed studies during hospitalization [Text1]: Pending at discharge 10/22/23 09:30 Surgical [PTH] Routine 10/24/23 13:26 Surgical [PTH] Routine Labs on day of discharge: Laboratory Results - last 24 hr 10/24/23 10/25/23 14:45 14:10 Sodium 140 Potassium 4.4 D Chloride 104 Carbon Dioxide 30 H Anion Gap 10 L BUN 4 L Creatinine 0.73 Estim Creat Clear Calc 110.3 Estimated GFR > 60 Random Glucose 84 Calcium 9.1 D Total Bilirubin 0.2 Direct Bilirubin < 0.2 AST 26 ALT 70 H Alkaline Phosphatase 64 Total Protein 5.5 L Albumin 3.5 IgA <5 L Tiss Transglutamin IgG <1.0 Tiss Transglutamin IgA <1.0 Anti-Gliadin IgG Ab <1.0 Gliadin (Deamidat) IgA <1.0 Discharge Plan Discharge Anticipated Discharge Date/Time: 10/26/23 17:00 Patient Disposition: er [facility] Discharge Diagnosis: abdominal pain biliary dyskinesia Referrals: [facility] [Outside] - 1 Day (short term rehab) Gavin Burks MD [Physician] - 1 Week Physician,None [Primary Care Provider] - 1 Week Discharge Medications: New polyethylene glycol 3350 17 gram Powder In Packet 17 g PO DAILY Qty: 14 0RF famotidine 20 mg Tablet 20 mg PO BID Qty: 1 0RF oxycodone 5 mg Tablet 10 mg PO Q6H PRN (Reason: Pain, Moderate(Pain Scale 4-6)) Qty: 7 0RF Rx Instructions: Partial Fill upon patient request. methocarbamol 500 mg Tablet 500 mg PO TID PRN (Reason: muscle spasm) Qty: 7 0RF acetaminophen 325 mg Tablet 650 mg PO Q6H PRN (Reason: Pain, Mild (Pain Scale 1-3), fever or headache) Qty: 1 0RF Continued dextroamphetamine-amphetamine 10 mg tablet 20 mg PO DAILY Rx Instructions: TAKE 2 TABLETS BY MOUTH EVERY MORNING AND TAKE 1 TABLET EVERY AFTERNOON gabapentin 800 mg tablet 800 mg PO TID mupirocin 2 % ointment 1 appl topical BID PRN (Reason: Rash) buspirone 15 mg tablet 15 mg PO BID duloxetine 60 mg capsule,delayed release(DR/EC) 60 mg PO DAILY dextroamphetamine-amphetamine 10 mg tablet 10 mg PO DAILY@1200 PRN (Reason: attention) lorazepam 0.5 mg tablet 0.5 mg PO QID PRN (Reason: Anxiety) Qty: 7 0RF duloxetine 30 mg capsule,delayed release(DR/EC) 30 mg PO DAILY Discontinued naproxen 500 mg tablet 500 mg PO BID PRN (Reason: pain) Qty: 14 0RF baclofen 10 mg tablet 10 mg PO TID colchicine 0.6 mg tablet 0.6 mg DAILY acetaminophen [Tylenol Extra Strength] 500 mg Tablet 1,000 mg PO Q6-8H PRN (Reason: Pain) ibuprofen 200 mg Tablet 400 mg PO Q6-8H PRN (Reason: Pain) ketamine 100 mg Sharon 60 mg SUBLINGUAL DAILY Discharge Orders: Discharge Order (Routine); Ordered 10/26/23 Ordered By: Marlene Samaniego Activity on Discharge: No heavy lifting Stand Alone Forms: Patient Portal Discharge page Print Language: Portuguese Activity Restrictions/Additional Instructions: If the incision area is tender, you may apply an ice pack for short intervals (No more than 20 minutes on, followed by at least 20 minutes off). Do not apply heat. Do not use creams, lotions, or topical antibiotics. Ok to shower. Remove clear dressings 3 days following your procedure. You have steri strips (small white cloth strips) covering your incision- these will fall off ~1 week. No heavy lifting (>10lbs) or strenuous activity! Take Tylenol Extra-strength 1-2 tabs every 6 hours for the first day, then as needed. Oxycodone every 6-8 hours as needed for pain. Colace 100 mg every day as needed for constipation. Follow up in office with Dr. Burks in 1 week. ([phone]) Call Your Doctor If: -Your temperature exceeds 101.5? F -You experience excessive pain or swelling -You have an unexpected reaction to medication -You have excessive bleeding -You experience continued vomiting/nausea -Your incision begins to separate -Your incision shows signs of infection such as increased redness, swelling, excessive pain, drainage (light blood or clear fluid is normal) or heat Care Plan Goals: see below Health Concerns: Abdominal pain Biliary dyskinesia status post cholecystectomy Plan of Treatment: Postoperative instructions as above Recommend outpatient follow-up with PCP Assessment: see discharge summary
[2023-10-26 14:00] VITALS: BP 129/64; PULSE 74; RESP 18; TEMP 36.4; O2SAT 96
[2023-10-26 15:33] VITALS: BP 129/64; PULSE 74; O2SAT 96
[2023-10-26 15:44] VITALS: BP 125/76; PULSE 64; RESP 18; TEMP 36.9; O2SAT 96
[2023-10-26] MEDS: Acetaminophen 325 MG TABLET 650 MG PO (17:49)
== END 2023-10-26 19:13 | disposition skilled nursing facility (03) | DRG 263 ==
LOC: HO.ED 20:57 → HO.EDOVER 21:40 → HO.S3 21:54
PROVIDERS: Internal Medicine; Internal Medicine Gastroenterology; Physician Assistant; Student in an Organized Health Care Education/Training Program; Surgery; Admitting Provider Internal Medicine; Emergency Provider Emergency Medicine; Visit Provider Physician Assistant Medical
PROC: 0FT44ZZ Resection of Gallbladder, Percutaneous Endoscopic Approach (ICD-10-PCS; CPT 47562; principal; 2023-10-22 08:50)
PROC: 0DJ08ZZ Inspection of Upper Intestinal Tract, Via Natural or Artificial Opening Endoscopic (ICD-10-PCS; CPT 43235; principal; 2023-10-24 14:00)
DX: K82.8 Other specified diseases of gallbladder (principal); M35.2 Behcet's disease; R59.0 Localized enlarged lymph nodes; N81.4 Uterovaginal prolapse, unspecified; K52.9 Noninfective gastroenteritis and colitis, unspecified; K29.40 Chronic atrophic gastritis without bleeding; J45.20 Mild intermittent asthma, uncomplicated; Z20.822 Contact with and (suspected) exposure to COVID-19; Z87.891 Personal history of nicotine dependence; Z91.040 Latex allergy status; Z79.899 Other long term (current) drug therapy
CPT/HCPCS: 36415; 71046; 74177; 74240; 76705; 78227; 80048; 80076; 80307; 81003; 81025; 82784; 83615; 83690; 83735; 85025; 85027; 85652; 86140; 86258; 86364; 87493; 87507; 87635; 88304; 88305; 88307; 88341; 88342; 93005; 97116; 97162; 97166; 99285; A9537; J0131; J0696; J0737; J1100; J1170; J1650; J2250; J2270; J2405; J2470; J2704; J2795; J2805; J3010; J7120; Q9967

== ENCOUNTER 2023-10-18 21:36 | Outpatient (BNV) | payer OTHER, SELFPAY | END 2023-10-19 14:30 | PROVIDERS: Admitting Provider Internal Medicine; Emergency Provider Emergency Medicine; Visit Provider Radiology Diagnostic Radiology | DX: R11.2 Nausea with vomiting, unspecified (principal) | CPT/HCPCS: 74246 ==

== ENCOUNTER → 2023-10-18 21:36 | Outpatient (BNV) | payer OTHER, SELFPAY | PROVIDERS: Admitting Provider Internal Medicine; Emergency Provider Emergency Medicine; Visit Provider Internal Medicine | DX: K82.8 Other specified diseases of gallbladder (principal) | CPT/HCPCS: 99222; 99232; 99239 ==

== ENCOUNTER → 2023-10-18 21:36 | Outpatient (BNV) | payer OTHER, SELFPAY | PROVIDERS: Admitting Provider Internal Medicine; Emergency Provider Emergency Medicine; Visit Provider Internal Medicine | DX: R10.9 Unspecified abdominal pain (principal); K29.40 Chronic atrophic gastritis without bleeding; K52.9 Noninfective gastroenteritis and colitis, unspecified | CPT/HCPCS: 43239; 99222; 99232 ==

== ENCOUNTER → 2023-10-20 12:36 | Outpatient (BNV) | payer OTHER, SELFPAY | PROVIDERS: Admitting Provider Internal Medicine; Emergency Provider Emergency Medicine; Visit Provider Surgery | DX: K82.8 Other specified diseases of gallbladder (principal) | CPT/HCPCS: 38570; 47562; 99024; 99222; 99499 ==

== ENCOUNTER 2023-11-06 10:52 | Outpatient (AMB) | payer OTHER, SELFPAY ==
--- NOTE | 2023-11-06 10:56 | MHC.OFFVIS ---
Vital Signs 11/06/23 10:57 Height 5 ft 3.5 in Weight 185 lb BMI 32.3 BP 116/75 Blood Pressure Location Rt brachial Position Sitting Pulse 99 Intake Visit Reasons: Abdominal pain Intake Note: Patient here c/o abd pain. Hx of biliary dyskinesia, mesenteric lymphadenopathy with Dr. Burks on 10-22-2023. Patient c/o: abdominal pain. Pencil thin BM. Taking Oxycodone q4hrs. Rn Correctional Required: No Accompanied by: Self / Same As Patient Allergies erythromycin base [ERYTHROMYCIN BASE] Allergy (Unknown, Verified 11/06/23 10:57) UNKNOWN latex [LATEX] Allergy (Unknown, Verified 11/06/23 10:57) UNKNOWN Adhesive tape Allergy (Unknown, Uncoded 11/06/23 10:57) Unknown Erthromycin Allergy (Unknown, Uncoded 11/06/23 10:57) Unknown Latex Allergy (Unknown, Uncoded 11/06/23 10:57) Unknown HPI Comments Details: Patient was status post laparoscopic cholecystectomy. She presents here because she has incisional discomfort. She has a plethora of other complaints and is currently at an extended care facility. She is upset because she is getting analgesic narcotic meds every 8 hours and would like the frequency to be every 4 hours. In the meantime, patient was tolerating a diet. Having regular bowel habits. Pathology from laparoscopic cholecystectomy and lymph node biopsy are benign. 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] Personal history of malignant melanoma of skin Muscle spasm of back Chronic pain syndrome Generalized anxiety disorder Major depressive disorder, single episode, in full remission Surgical History Hx of tonsillectomy History of appendectomy Social History Household Members: Spouse and Family Housing: House Are you a primary healthcare interpreter to a significant other at home: No Do you presently have visiting nurse or other home services: No Alcohol intake: current Alcohol intake frequency: holidays/special occasions only Patient Tobacco Use Status: Former Tobacco user Tobacco use type: Cigarette e-Cigarette/Vaping Use: Currently Using Second Hand Smoke Exposure: No Substance Use Type: Other and Caffiene service: No Physical Exam Vital Signs: Last Vital Signs Pulse 99 11/06/23 10:57 BP 116/75 11/06/23 10:57 BMI result Body Mass Index 32.3 Eyes Other: Anicteric GI Other: Abdomen is soft. All wounds clean dry and intact healing very well. Patient has incisional tenderness at the upper midline which is the specimen retrieval site. She was reassured that this will improve in time. Assessment & Plan Assessment & Plan (1) Status post laparoscopic cholecystectomy: Code(s): Z90.49 - Acquired absence of other specified parts of digestive tract Category: Medical Plan Patient has been given local instructions. She is currently on extended care facility and is ?rehabbing ?there. She would like her analgesics/oxycodone given more frequently. I will acquiesce to every 6 hours as opposed to 4. Patient will be scheduled to follow-up with Dr. Burks in roughly 1 weeks time or p.r.n.. All questions answered Coding Level of Care Code Global (67734) Diagnoses Status post laparoscopic cholecystectomy Z90.49
[2023-11-06 10:57] VITALS: BP 116/75; PULSE 99; BMI 32.3
== END 2023-11-06 11:20 | disposition home or self-care (01) ==
PROVIDERS: Visit Provider Surgery
DX: Z90.49 Acquired absence of other specified parts of digestive tract (principal)
CPT/HCPCS: 99024

== ENCOUNTER → 2023-11-06 10:52 | Outpatient (BNVA) | payer OTHER, SELFPAY | PROVIDERS: Visit Provider Surgery | DX: Z90.49 Acquired absence of other specified parts of digestive tract (principal) | CPT/HCPCS: 99212 ==

== ENCOUNTER → 2023-11-22 10:04 | Outpatient (BNVA) | payer OTHER, SELFPAY | PROVIDERS: Visit Provider Surgery | DX: K29.40 Chronic atrophic gastritis without bleeding (principal); K91.5 Postcholecystectomy syndrome; Z90.49 Acquired absence of other specified parts of digestive tract | CPT/HCPCS: 99212 ==

== ENCOUNTER 2023-11-22 10:07 | Outpatient (AMB) | payer OTHER, SELFPAY ==
--- OUTSIDE RECORDS SUMMARY | 2023-11-22 10:06 | XMS_ITS | Patient Health Record ---
Author Organization [facility], [facility] Address [address] [place] [phone] Support Name Relationship Address Phone JAVIER REYNOLDS [...] Insured Coverage Start Date Coverage End Date [facility] [address] [place] [address] [id number] JAVIER REYNOLDS Self - patient is the insured
--- NOTE | 2023-11-22 10:10 | MHC.OFFVIS ---
Intake Visit Reasons: 2 wks f/u, s/p laparoscopic cholecystectomy Intake Note: Patient post op/ Laparoscopic Cholecystectomy Patient cc: discomfort in the incision and also nauseas and vomiting on and off. 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 Overall she does feel improved with less right upper quadrant abdominal pain. She does have some minor incisional pain but mostly complains of what she calls gastric pain. She was determined to have atrophic gastritis by upper endoscopy. Her pathology was negative for H pylori. Previous lymph node biopsy was negative as well for malignancy/melanoma. 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] Personal history of malignant melanoma of skin Muscle spasm of back Chronic pain syndrome Generalized anxiety disorder Major depressive disorder, single episode, in full remission Surgical History Hx laparoscopic cholecystectomy (10/22/23) Hx of tonsillectomy History of appendectomy Social History Household Members: Spouse and Family Housing: House Are you a primary critical care paramedic to a significant other at home: No Do you presently have visiting nurse or other home services: No Alcohol intake: current Alcohol intake frequency: holidays/special occasions only Patient Tobacco Use Status: Former Tobacco user Tobacco use type: Cigarette e-Cigarette/Vaping Use: Currently Using Second Hand Smoke Exposure: No Substance Use Type: Other and Caffiene service: No Physical Exam Const General: no acute distress Nutritional Appearance: well nourished Orientation/consciousness: patient oriented x3 Resp Effort & Inspection: normal respiratory effort GI Other: Trocar incisions are clean, dry, and intact. No hernia noted with Valsalva maneuvers. Inspection: Yes normal to inspection Palpation (GI): Soft to palpation, Tenderness to palpation present (GI) (Epigastric incision), no guarding and not rigid Neuro General: patient oriented x3 Extrem Other: No edema Assessment & Plan Assessment & Plan (1) Atrophic gastritis: Code(s): K29.40 - Chronic atrophic gastritis without bleeding Category: Medical (2) Biliary dyskinesia: Code(s): K82.8 - Other specified diseases of gallbladder Category: Medical Plan Patient returns following laparoscopic cholecystectomy on 10/24/2023. Her wounds are clean, dry, and intact. She may resume normal activity without restrictions. I recommended follow-up with Gastroenterology due to the continued upper intestinal symptoms, nausea and vomiting. She expressed understanding and agrees with the plan. She should follow up as needed. Orders: Referrals Gastroenterology Referral K29.40 - Chronic atrophic gastritis without bleeding Coding Level of Care Code Global (80510) Diagnoses Atrophic gastritis K29.40 Biliary dyskinesia K82.8
== END 2023-11-22 10:22 | disposition home or self-care (01) ==
PROVIDERS: Visit Provider Surgery
DX: K29.40 Chronic atrophic gastritis without bleeding (principal); K82.8 Other specified diseases of gallbladder
CPT/HCPCS: 99024

== ENCOUNTER 2023-12-14 19:29 | Outpatient (REF) | payer OTHER, SELFPAY ==
--- NOTE | ~2023-12-14 | MR_ITS ---
EXAMINATION: MR THORACIC SPINE WITHOUT CONTRAST CLINICAL INFORMATION: Compression fracture. COMPARISON: MRI thoracic spine dated March 08, 2010. TECHNIQUE: MRI of the thoracic spine was obtained using routine sequences without contrast. FINDINGS: There is mild S-shaped curvature of the thoracolumbar spine. Thoracic spinal alignment is anatomic in the sagittal projection. There are unchanged, mild compression deformities of the superior endplates of T10 and T11. Remaining thoracic vertebral bodies demonstrate preserved stature. There are several low signal linear foci within the T11 vertebral body which appear slightly more prominent than on the 2011 MRI examination. There is, however, no bone marrow edema to suggest that these are acute fractures. The intervertebral discs demonstrate preserved stature. There is partial desiccation of several midthoracic spine intervertebral discs. The visualized spinal cord is normal in caliber and signal intensity. There are tiny disc bulges at T9-10 and T10-11. There is no spinal canal stenosis at any thoracic level. No foraminal stenosis. The paraspinal soft tissue is normal in appearance. Visualized retroperitoneal structures are normal in appearance. Visualized lungs appear clear. MR/MR thoracic spine wo con IMPRESSION: There is mild S-shaped curvature of the thoracolumbar spine. Thoracic spinal alignment is anatomic in the sagittal projection. There are unchanged, mild compression deformities of the superior endplates of T10 and T11. Remaining thoracic vertebral bodies demonstrate preserved stature. There are several low signal linear foci within the T11 vertebral body which appear slightly more prominent than on the 2011 MRI examination. Chronic fractures are suspected as there is no associated bone marrow edema. This critical result was discussed with RG GUPTA at 5:05 PM on 12/15/2023 and it was ascertained that the content and urgency of the report was understood at the time of direct communication. Electronically signed by: uJan F Ashley DO 12/15/2023 05:05 PM EDT
== END 2023-12-14 19:30 | disposition home or self-care (01) ==
LOC: HO.MRI 19:29
PROVIDERS: Visit Provider Internal Medicine Rheumatology
DX: S22.078A Other fracture of T9-T10 vertebra, initial encounter for closed fracture (principal); S22.088A Other fracture of T11-T12 vertebra, initial encounter for closed fracture
CPT/HCPCS: 72146

== ENCOUNTER 2023-12-15 14:31 | Emergency (ER) | payer OTHER, SELFPAY ==
--- NOTE | ~2023-12-15 | CT_ITS ---
EXAMINATION: CT LUMBAR SPINE WITHOUT CONTRAST CT SACRUM WITHOUT CLINICAL INFORMATION: Trauma, known fracture of thoracic spine and coccyx COMPARISON: None available. TECHNIQUE: CT imaging of the lumbar spine and sacrum performed without contrast. Multiplanar reformats were reviewed. This CT examination was performed using dose optimization techniques as appropriate, variously including the following: *Automated exposure control *Adjustment of mA and/or kV according to patient size (this includes techniques or standardized protocols for targeted exams where dose is matched to indication/reason for exam; i.e. extremities or head) *Use of iterative reconstruction technique DLP; 808 mGy-cm FINDINGS: The lumbar spine maintains normal alignment. Vertebral body heights and intervertebral disc spaces are maintained. No bony abnormalities. No significant spinal canal or foraminal stenosis. No acute fractures in the sacrum. There is a nondisplaced coccygeal fracture. The paravertebral soft tissues are unremarkable. CT/CT lumbar spine wo IV con IMPRESSION: Nondisplaced coccygeal fracture. Electronically signed by: Adelaida Alvarado MD 12/15/2023 06:24 PM EDT
--- NOTE | ~2023-12-15 | XR_ITS ---
EXAMINATION: XR RIBS, BILATERAL CLINICAL INFORMATION: Trauma. COMPARISON: None available. TECHNIQUE: Frontal view of chest 3 views of the bilateral ribs were obtained. FINDINGS: Lungs are clear. No consolidation, pneumothorax, or pleural effusion. The cardiomediastinal silhouette and pulmonary vasculature are normal. Osseous structures are unremarkable. Ribs are intact. No fractures are identified. Surgical clips right upper quadrant of abdomen. XR/XR ribs BI 3V IMPRESSION: Unremarkable examination. Electronically signed by: Mitch Mathew MD 12/15/2023 06:23 PM EDT RP
--- NOTE | ~2023-12-15 | CT_ITS ---
EXAMINATION: CT LUMBAR SPINE WITHOUT CONTRAST CT SACRUM WITHOUT CLINICAL INFORMATION: Trauma, known fracture of thoracic spine and coccyx COMPARISON: None available. TECHNIQUE: CT imaging of the lumbar spine and sacrum performed without contrast. Multiplanar reformats were reviewed. This CT examination was performed using dose optimization techniques as appropriate, variously including the following: *Automated exposure control *Adjustment of mA and/or kV according to patient size (this includes techniques or standardized protocols for targeted exams where dose is matched to indication/reason for exam; i.e. extremities or head) *Use of iterative reconstruction technique DLP; 808 mGy-cm FINDINGS: The lumbar spine maintains normal alignment. Vertebral body heights and intervertebral disc spaces are maintained. No bony abnormalities. No significant spinal canal or foraminal stenosis. No acute fractures in the sacrum. There is a nondisplaced coccygeal fracture. The paravertebral soft tissues are unremarkable. CT/CT sacrum IMPRESSION: Nondisplaced coccygeal fracture. Electronically signed by: Adelaida Alvarado MD 12/15/2023 06:24 PM EDT
[2023-12-15 14:45] VITALS: BP 100/65; PULSE 82; RESP 20; TEMP 36.1; O2SAT 98; BMI 31.9
--- NOTE | 2023-12-15 14:48 | ED.BACK ---
HPI - Back Pain/Injury General Chief Complaint: Back Pain/Injury Stated Complaint: back pain Time Seen by Provider: 12/15/23 16:12 Source: patient Limitations: no limitations History of Present Illness ED Provider: Philly Butler PA-C HPI Narrative: 33-year-old female with chronic back pain secondary to thoracic fractures that occurred in 2010, presents with new back fracture. Patient states she fell backwards landing on a chair, she subsequently fractured additional regions of the her thoracic spine, she sustained a rib fracture and a coccyx fracture. Incident occurred yesterday, she was seen as an outpatient for x-rays, they in turn sent her for an MRI. The MRI is yet to be read, her healthcare provider will not prescribe pain medication until they have MRI results. Denies weakness of lower extremities, saddle anesthesia, urinary retention or bowel incontinence. Related Data Home Medications ?Medication ?Instructions ?Recorded ?Confirmed duloxetine 30 mg capsule,delayed 30 mg PO DAILY 08/04/22 11/06/23 release buspirone 15 mg tablet 15 mg PO BID 10/18/23 11/06/23 dextroamphetamine-amphetamine 10 10 mg PO DAILY@1200 PRN attention 10/18/23 11/06/23 mg tablet dextroamphetamine-amphetamine 10 20 mg PO DAILY 10/18/23 11/06/23 mg tablet duloxetine 60 mg capsule,delayed 60 mg PO DAILY 10/18/23 11/06/23 release gabapentin 800 mg tablet 800 mg PO TID 10/18/23 11/06/23 mupirocin 2 % topical ointment 1 appl topical BID PRN Rash 10/18/23 11/06/23 Previous Rx's ?Medication ?Instructions ?Recorded acetaminophen 325 mg tablet 650 mg (2 x 325 mg) PO Q6H PRN 10/26/23 Pain, Mild (Pain Scale 1-3), fever or headache #1 tab famotidine 20 mg tablet 20 mg PO BID #1 tab 10/26/23 lorazepam 0.5 mg tablet 0.5 mg PO QID PRN Anxiety #7 tabs 10/26/23 methocarbamol 500 mg tablet 500 mg PO TID PRN muscle spasm #7 10/26/23 tabs oxycodone 5 mg tablet 10 mg (2 x 5 mg) PO Q6H PRN Pain, 10/26/23 Moderate(Pain Scale 4-6) #7 tabs polyethylene glycol 3350 17 gram 17 g PO DAILY #14 ea 10/26/23 oral powder packet methocarbamol 750 mg tablet 1,500 mg (2 x 750 mg) PO QID PRN 12/15/23 pain #20 tabs Allergies Allergy/AdvReac Type Severity Reaction Status Date / Time erythromycin base Allergy Unknown UNKNOWN Verified 12/15/23 14:47 [ERYTHROMYCIN BASE] latex [LATEX] Allergy Unknown UNKNOWN Verified 12/15/23 14:47 Adhesive tape Allergy Unknown Unknown Uncoded 11/06/23 10:57 Erthromycin Allergy Unknown Unknown Uncoded 11/06/23 10:57 Latex Allergy Unknown Unknown Uncoded 11/06/23 10:57 Review of Systems Review of Systems: Yes all other systems are reviewed and are negative Constitutional: Constitutional: Denies fatigue and Denies fever(s) Cardiovascular: Cardiovascular: Denies chest pain and Denies dyspnea Respiratory: Respiratory: Denies dyspnea Gastrointestinal: Gastrointestinal: Denies abdominal pain Musculoskeletal: Musculoskeletal: Reports back pain, Denies muscle weakness, Denies radiating pain into limb and Denies tingling Neurologic: Denies tingling Endocrine: Endocrine: Denies fatigue PMFSH Past Medical History Attestation statement: The following information was validated with the patient. 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] Personal history of malignant melanoma of skin Muscle spasm of back Chronic pain syndrome Generalized anxiety disorder Major depressive disorder, single episode, in full remission Surgical History Hx laparoscopic cholecystectomy (10/22/23) Hx of tonsillectomy History of appendectomy Social History Social History Household Members: Spouse and Family Housing: House Are you a primary home health care case manager to a significant other at home: No Do you presently have visiting nurse or other home services: No Alcohol intake: current Alcohol intake frequency: holidays/special occasions only Patient Tobacco Use Status: Former Tobacco user Tobacco use type: Cigarette e-Cigarette/Vaping Use: Currently Using Second Hand Smoke Exposure: No Substance Use Type: Other and Caffiene Advance Directives Date on File: 10/29/23 service: No Physical Exam Vital Signs: Vital Signs: Last Vital Signs Temp 98.2 F 12/15/23 19:26 Pulse 57 12/15/23 19:26 Resp 16 12/15/23 19:26 BP 106/66 12/15/23 19:26 Pulse Ox 97 12/15/23 19:26 O2 Del Method Room Air 12/15/23 19:26 BMI result Body Mass Index 31.9 Const: Other: Alert, tearful, appears older than stated age Orientation/consciousness: patient oriented x3 Resp: Other: Nonlabored respiration Cardio: Other: Normal peripheral perfusion Skin: Other: Warm dry no rash Neuro: General: patient oriented x3, no focal motor deficits and CN's II-XI intact bilaterally Extrem: Other: Strength 5/5 bilateral upper and lower extremities, patient is ambulatory, she does have a cane Psych: Other: Cooperative Course Course Course Narrative: This is an RME: Additional HPI, ROS, PE not included below will be deferred to primary provider. RME assessment and note performed by: Carlie No PA-C This is a 33-year-old female who presents with upper back pain. Patient is that she fell 1 week ago into a chair and fractured her back. She was seen at [facility], she had an MRI performed yesterday and has been awaiting the results. She is reporting worsening back pain. She has been taking multiple medications including muscle relaxants, gabapentin, and others without any relief. Spoke to radiology department, who will attempt to have MRI read. Medications Administered Discontinued Medications Generic Name Dose Route Start Last Admin Trade Name Andre PRN Reason Stop Dose Admin Diazepam 5 mg 12/15/23 16:12 12/15/23 16:22 Diazepam 10 Mg/2 Ml Cartridge IVPUSH 12/15/23 16:13 5 mg STAT STA Administration Ketorolac Tromethamine 15 mg 12/15/23 16:12 12/15/23 16:22 Ketorolac Tromethamine 15 Mg/Ml Vial IVPUSH 12/15/23 16:13 15 mg ONCE ONE Administration Morphine Sulfate 4 mg 12/15/23 16:12 12/15/23 16:19 Morphine Sulfate 4 Mg/Ml Cartridge IVPUSH 12/15/23 16:13 4 mg ONCE ONE Administration Protocol Morphine Sulfate 6 mg 12/15/23 18:10 12/15/23 18:16 Morphine Sulfate 10 Mg/Ml Cartridge IVPUSH 12/15/23 18:11 6 mg ONCE ONE Administration Protocol Oxycodone HCl 10 mg 12/15/23 18:57 12/15/23 19:22 Oxycodone Hcl Immed Release 5 Mg Tablet PO 12/15/23 18:58 10 mg ONCE ONE Administration Medical Decision Making Medical Decision Making MDM Narrative: 33-year-old female with chronic back pain secondary to thoracic fractures that occurred in 2010, presents with new back fracture. Patient states she fell backwards landing on a chair, she subsequently fractured additional regions of the her thoracic spine, she sustained a rib fracture and a coccyx fracture. Incident occurred yesterday, she was seen as an outpatient for x-rays, they in turn sent her for an MRI. The MRI is yet to be read, her healthcare provider will not prescribe pain medication until they have MRI results. Denies weakness of lower extremities, saddle anesthesia, urinary retention or bowel incontinence. Problem: Acute on chronic back pain, new fractures and multiple regions History: Per patient I have considered the following differential diagnoses: Fracture, dislocation, cauda equina, additional injury Plan: We are unable to receive outpatient x-rays, the patient reports she has new thoracic fracture with rib fracture and coccygeal fracture. Given injury and multiple regions, she potentially could be a trauma consult. I am going to scan her lumbar spine, the sacrum/coccyx, I have put in a request for Radiology to read the MRI. It is unclear why her healthcare provider did not prescribe pain medication, based on the x-ray reads. Unclear if she is exhibiting medication seeking behaviors at this time. We will treat with Valium, morphine and Toradol. Screening labs were already obtained. To note, she has no red flag signs symptoms concerning for cord compression. I have independently reviewed the following tests: Labs: No leukocytosis, not anemic, no electrolyte abnormality, not T spine MRI: MR/MR thoracic spine wo con IMPRESSION: There is mild S-shaped curvature of the thoracolumbar spine. Thoracic spinal alignment is anatomic in the sagittal projection. There are unchanged, mild compression deformities of the superior endplates of T10 and T11. Remaining thoracic vertebral bodies demonstrate preserved stature. There are several low signal linear foci within the T11 vertebral body which appear slightly more prominent than on the 2011 MRI examination. Chronic fractures are suspected as there is no associated bone marrow edema. This critical result was discussed with RG GUPTA at 5:05 PM on 12/15/2023 and it was ascertained that the content and urgency of the report was understood at the time of direct communication. CT lumbar spine and sacrum: CT/CT sacrum IMPRESSION: Nondisplaced coccygeal fracture. Electronically signed by: Adelaida Alvarado MD 12/15/2023 06:24 PM EDT RP Rib x-rays: XR/XR ribs BI 3V IMPRESSION: Unremarkable examination. Electronically signed by: Mitch Mathew MD 12/15/2023 06:23 PM EDT RP Lab Data 12/15/23 16:48 12/15/23 16:48 Labs: Lab Results 12/15/23 Range/Units 16:48 WBC 7.0 (4.8-10.8) X10*3/uL RBC 4.62 (4.20-5.50) X10*6/uL Hgb 13.3 (12.0-16.0) g/dl Hct 38.3 (37.0-47.0) % MCV 82.9 (80.0-98.0) fL MCH 28.8 (27.0-33.0) pg MCHC 34.7 (31.0-35.0) g/dl RDW 13.1 (11.0-16.0) % Plt Count 244 (160-400) X10*3/uL MPV 9.2 L (9.4-12.3) fL Immature Gran % (Auto) 0.3 (0.0-0.4) % Neut % (Auto) 52.9 (45-73) % Lymph % (Auto) 27.2 (20-40) % Faulk % (Auto) 7.0 (2-11) % Eos % (Auto) 11.9 H (0-4) % Baso % (Auto) 0.7 (0-2) % Lymph # (Auto) 1.9 (1.2-4.9) X10*3/uL Faulk # (Auto) 0.5 (0.1-1.2) X10*3/uL Eos # (Auto) 0.8 H (0.0-0.4) X10*3/uL Baso # (Auto) 0.1 (0.0-0.2) X10*3/uL Abs Immat Gran (auto) 0.02 (0.00-0.03) X10*3/uL Absolute Neuts (auto) 3.7 (2.0-8.3) x10*3/uL Absolute Nucleated RBC 0.000 (0.0-0.012) X10*3/uL Nucleated RBC % (auto) 0.0 (0.0-0.2) /100WBC Sodium 140 (135-145) mmol/L Potassium 4.5 (3.3-5.1) mmol/L Chloride 108 (96-108) mmol/L Carbon Dioxide 25 (22-29) mmol/L Anion Gap 12 (12-20) BUN 9 (9-16) mg/dL Creatinine 0.64 (0.5-1.4) mg/dL Estim Creat Clear Calc 125.3 Estimated GFR > 60 Random Glucose 93 (60-115) mg/dL Calcium 9.4 (8.4-10.2) mg/dL Magnesium 2.1 (1.6-2.6) mg/dL Total Bilirubin 0.3 (0.0-1.0) mg/dL AST 24 (5-31) U/L ALT 27 (0-31) U/L Alkaline Phosphatase 74 (39-117) U/L Total Protein 6.2 L (6.5-8.0) g/dL Albumin 4.1 (3.5-5.0) g/dL Beta HCG, Quant < 2 mIU/mL Discharge Plan Discharge Clinical Impression: Back contusion, Closed fracture of coccyx, Muscle spasm Patient Disposition: Home, Self-Care Instructions: Coccyx Injury (ED), Contusion in Adults (ED), Muscle Spasm (ED) Additional Instructions: We are able to obtain the MRI of your thoracic spine, there was no acute injury sustained, the study resembles your prior MRI from 2010. Today, I obtained a CT scan of your lumbar spine that was unremarkable. We also imaged the coccyx, you do have a nondisplaced fracture, this is not operable, it will heal on its own. Lastly, we obtained dedicated rib films, you have no rib fractures. You need to follow up with your prescribers, and the spine and sports specialists, for your ongoing discomfort. Use the methocarbamol as needed for pain, you can take 1500 mg 4 times a day, if need be. Use your other home pain medications that you were prescribed. Prescriptions: New methocarbamol 750 mg tablet 1,500 mg PO QID PRN (Reason: pain) Qty: 20 0RF No Action dextroamphetamine-amphetamine 10 mg tablet 20 mg PO DAILY Rx Instructions: TAKE 2 TABLETS BY MOUTH EVERY MORNING AND TAKE 1 TABLET EVERY AFTERNOON gabapentin 800 mg tablet 800 mg PO TID mupirocin 2 % ointment 1 appl topical BID PRN (Reason: Rash) buspirone 15 mg tablet 15 mg PO BID duloxetine 60 mg capsule,delayed release(DR/EC) 60 mg PO DAILY dextroamphetamine-amphetamine 10 mg tablet 10 mg PO DAILY@1200 PRN (Reason: attention) polyethylene glycol 3350 17 gram Powder In Packet 17 g PO DAILY Qty: 14 0RF famotidine 20 mg Tablet 20 mg PO BID Qty: 1 0RF oxycodone 5 mg Tablet 10 mg PO Q6H PRN (Reason: Pain, Moderate(Pain Scale 4-6)) Qty: 7 0RF Rx Instructions: Partial Fill upon patient request. methocarbamol 500 mg Tablet 500 mg PO TID PRN (Reason: muscle spasm) Qty: 7 0RF lorazepam 0.5 mg tablet 0.5 mg PO QID PRN (Reason: Anxiety) Qty: 7 0RF acetaminophen 325 mg Tablet 650 mg PO Q6H PRN (Reason: Pain, Mild (Pain Scale 1-3), fever or headache) Qty: 1 0RF duloxetine 30 mg capsule,delayed release(DR/EC) 30 mg PO DAILY Interventions: ED Discharge Assessment Last Done: 12/15/23 19:26 Discharge Date/Time: 12/15/23 19:26 Print Language: Irish
--- OUTSIDE RECORDS SUMMARY | 2023-12-15 15:55 | XMS_ITS | Continuity of Care Document ---
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 Role Phone Kiel AMADO, Glenny Ayon Primary Care Physician Encounter [facility] [place] Date(s): 11/02/23 - 12/02/23 [facility] [address] [id number]- Attending Physician: Arya Guido Admitting Physician: Admtr, Arya Referring Physician: Admtr, [id number] Allergies, Adverse Reactions, [...] 03/06/22 14:34:00 [facility], [id number], Partial fill uponpatient request if the prescription [...] tablet, 0 Refills, Maintenance, 03/06/22 14:34:00 EST, [facility] #[id number], Partial fill upon patient request if the [...] Team Personnel Name: Pamela Dorsey MA Position: [facility] Onco RN Member Role: Primary Care Nurse Name: Kiel AMADO, Glenny Ayon Position: [facility] Outreach Member Role: PCP Address: Address: [address] [place] [id number]- Care Team Related Persons Name: DANNY REYNOLDS Address: home [address] [place] [address] Name: JORGE REYNOLDS Address: [employer] Address: home [address] [place], [place] Address: [place] [address]
--- OUTSIDE RECORDS SUMMARY | 2023-12-15 15:56 | XMS_ITS | Patient Health Record ---
Author Organization [facility], [facility] Address [address] [place] [phone] Support Name Relationship Address Phone JAVIER REYNOLDS [...] Insured Coverage Start Date Coverage End Date [employer] [address] [place] [address] [id number] JAVIER REYNOLDS Self - patient is the insured
[2023-12-15 16:19] VITALS: RESP 18
[2023-12-15] MEDS: Morphine Sulfate 4 MG/ML CARTRIDGE IVPUSH (16:19)
[2023-12-15] MEDS: Ketorolac Tromethamine 15 MG/ML VIAL IVPUSH (16:22)
[2023-12-15] MEDS: diazePAM 10 MG/2 ML CARTRIDGE 5 MG IVPUSH (16:22)
[2023-12-15 16:53] LABS: Basophils Absolute Auto 0.1 X10*3/uL (0.0-0.2); Basophils Percent Auto 0.7 % (0-2); Eosinophils Absolute Auto 0.8 X10*3/uL (0.0-0.4); Eosinophils Percent Auto 11.9 % (0-4); Hematocrit 38.3 % (37.0-47.0); Hemoglobin 13.3 g/dl (12.0-16.0); Imm Gran Abs Auto 0.02 X10*3/uL (0.00-0.03); Imm Gran Pct Auto 0.3 % (0.0-0.4); Lymphocytes Absolute Auto 1.9 X10*3/uL (1.2-4.9); Lymphocytes Percent Auto 27.2 % (20-40); MANUAL DIFF FLAG NO; Mean Corpuscular HGB Conc 34.7 g/dl (31.0-35.0); Mean Corpuscular Hemoglobin 28.8 pg (27.0-33.0); Mean Corpuscular Volume 82.9 fL (80.0-98.0); Mean Platelet Volume 9.2 fL (9.4-12.3); Monocytes Absolute Auto 0.5 X10*3/uL (0.1-1.2); Neutrophils Absolute Auto 3.7 x10*3/uL (2.0-8.3); Neutrophils Percent Auto 52.9 % (45-73); Platelet Count 244 X10*3/uL (160-400); Red Blood Count 4.62 X10*6/uL (4.20-5.50); Red Cell Distribution Width 13.1 % (11.0-16.0)
[2023-12-15 17:30] LABS: Alanine Aminotransferase 27 U/L (0-31); Albumin Level 4.1 g/dL (3.5-5.0); Alkaline Phosphatase 74 U/L (39-117); Anion Gap 12 (12-20); Aspartate Amino Transferase 24 U/L (5-31); Bilirubin Total 0.3 mg/dL (0.0-1.0); Blood Urea Nitrogen 9 mg/dL (9-16); Calcium 9.4 mg/dL (8.4-10.2); Carbon Dioxide 25 mmol/L (22-29); Chloride 108 mmol/L (96-108); Creatinine Clr Calc Pharmacy 125.3; Estimated Glomerular Filt Rate > 60; Glucose Random 93 mg/dL (60-115); HCG Quantitative < 2 mIU/mL; Magnesium 2.1 mg/dL (1.6-2.6); Potassium 4.5 mmol/L (3.3-5.1); Sodium 140 mmol/L (135-145); Total Protein 6.2 g/dL (6.5-8.0)
[2023-12-15 18:16] VITALS: RESP 16
[2023-12-15] MEDS: Morphine Sulfate 10 MG/ML CARTRIDGE 6 MG IVPUSH (18:16)
[2023-12-15 18:44] VITALS: BP 88/46; PULSE 54; RESP 16; O2SAT 98
[2023-12-15] MEDS: oxyCODONE HCl Immed Release 5 MG TABLET 10 MG PO (19:22)
[2023-12-15 19:24] VITALS: BP 106/66; PULSE 57; RESP 16; TEMP 36.8; O2SAT 97
[2023-12-15 19:26] VITALS: BP 106/66; PULSE 57; RESP 16; TEMP 36.8; O2SAT 97
== END 2023-12-15 19:26 | disposition home or self-care (01) ==
PROVIDERS: Physician Assistant Medical; Emergency Provider Emergency Medicine
DX: S32.2XXA Fracture of coccyx, initial encounter for closed fracture (principal); S20.224A Contusion of middle back wall of thorax, initial encounter; W01.190A Fall on same level from slipping, tripping and stumbling with subsequent striking against furniture, initial encounter; M62.830 Muscle spasm of back; M54.6 Pain in thoracic spine; Z87.891 Personal history of nicotine dependence; Z91.81 History of falling; Y93.9 Activity, unspecified; Y92.9 Unspecified place or not applicable; Y99.9 Unspecified external cause status; Z79.899 Other long term (current) drug therapy
CPT/HCPCS: 36415; 71110; 72131; 72192; 80053; 83735; 84702; 85025; 96374; 96375; 96376; 99284; J1885; J2270; J3360

== ENCOUNTER 2023-12-19 12:59 | Outpatient (AMB) | payer OTHER, SELFPAY ==
--- NOTE | 2023-12-19 13:05 | HO.SPINEOV ---
Intake Visit Reasons: Severe Mid back pain Intake Note: Ms. Pandya is here today c/o severe mid back pain that radiates down to the legs and make it difficult to walk. Configuration Developer Required: No Allergies erythromycin base [ERYTHROMYCIN BASE] Allergy (Unknown, Verified 12/19/23 13:05) UNKNOWN latex [LATEX] Allergy (Unknown, Verified 12/19/23 13:05) UNKNOWN Adhesive tape Allergy (Unknown, Uncoded 11/06/23 10:57) Unknown Erthromycin Allergy (Unknown, Uncoded 11/06/23 10:57) Unknown Latex Allergy (Unknown, Uncoded 11/06/23 10:57) Unknown Assessment & Plan Assessment & Plan (1) Myelopathy: Code(s): G95.9 - Disease of spinal cord, unspecified Category: Medical Plan Marie is a pleasant 33-year-old female who is self-referred to our office. She comes in today with a chief complaint of midthoracic back pain. She does report some occasional radiation into her bilateral ribs. In addition to this she reports his progressive difficulty with balance/walking over the course of the last few years. Her difficulties with ambulation have progressed to the point where she needs to utilize a walker in order to ambulate without falling. She also reports weakness in her bilateral legs. She has a pertinent medical history of childhood scoliosis and was previously followed by [facility] for this. She reports an initial inciting incident when she was 14 years old and fell on her back causing a compression fracture in her thoracic spine. She has had several other recurrences compression fractures at T10/T11 since this incident. She has been evaluated by other neurosurgical services that informed her her thoracic spine does not need intervention. She comes in today for a subsequent evaluation/2nd opinion regarding her thoracic spine, and difficulty with ambulation/balance. She has been to physical therapy in the past multiple times feels as though it has not been helpful. She has tried [id number] medications including Tylenol, ibuprofen, pain patches/creams. She is currently taking gabapentin, Robaxin, Valium, Celebrex in an effort to help mitigate her back pain. PMH: Kings-Danlos syndrome, pots, Behcet's disease, fibromyalgia, depression. Social hx: Patient does not smoke, reports no substance use. Medications: Duloxetine, Robaxin, Valium, gabapentin, colchicine, prednisone, Celebrex, lidocaine. Allergies: Erythromycin, latex, adhesives. Physical exam: The patient is an obvious agony on exam, tearing up when talking & discussing her pain. The patient has 3/5 strength with bilateral dorsiflexion. She has 4/5 strength diffusely throughout the rest of her bilateral lower extremities. Her upper extremity strength is about 4/5. Much of her physical exam strength testing is limited due to pain. She ambulates very slowly with an extremely antalgic gait with her walker favoring her right side. She has no appreciable sensational deficits. Her reflexes are slightly hyperactive in her upper and lower extremities. (+) bilateral Babinski, (+) bilateral Conteh's. (-) clonus. Imaging review: MRI of the thoracic spine completed at [facility] shows evidence of compression fracture at T11/10. There is some notable streaking in the central canal at this level but it does not appear to be myelomalacia or true signal change. The radiologist report also reflects this. Impression: Marie is a pleasant 33-year-old female who comes in today with a chief complaint of midthoracic back pain as a result of multiple compression fractures in the past. Based on the imaging I have today her pain on exam is far out of proportion to the findings I have available. I do not believe she needs his surgical intervention for her thoracic spine to help relieve her pain. Given this, I can not ignore her (+) Babinski's & Conteh's sign which raises significant concern for a cervical impingement. I would like to send the patient for a cervical MRI to rule out cervical myelopathy, which could also be responsible for her balance/ambulation issues. Thank you for allowing us to care for your patient. The total time spent with this visit with this patient was 45 minutes reviewing history, physical exam, MRI imaging review, and implementation of treatment plan or further diagnostic testing Bradford Boykin MD,PhD [facility] Orders: Orders MR cervical spine wo con Today G95.9 - Disease of spinal cord, unspecified Coding Level of Care Code New Pt Level 4 (18332) Diagnoses Myelopathy G95.9
== END 2023-12-19 13:46 | disposition home or self-care (01) ==
LOC: HO.HNS 12:59
PROVIDERS: Visit Provider Physician Assistant
DX: G95.9 Disease of spinal cord, unspecified (principal)
CPT/HCPCS: 99204

== ENCOUNTER → 2023-12-19 12:59 | Outpatient (BNVA) | payer OTHER, SELFPAY | PROVIDERS: Visit Provider Physician Assistant | DX: G95.9 Disease of spinal cord, unspecified (principal) | CPT/HCPCS: 99202 ==

== ENCOUNTER 2023-12-19 19:38 | Outpatient (REF) | payer OTHER, SELFPAY ==
--- NOTE | ~2023-12-19 | MR_ITS ---
EXAMINATION: MR CERVICAL SPINE WITHOUT CONTRAST CLINICAL INFORMATION: Cervical myelopathy COMPARISON: None available. TECHNIQUE: MRI of the cervical spine was obtained using routine sequences without contrast. FINDINGS: The visualized cervical vertebrae are intact with normal alignment. No focal bone lesion with abnormal signal can be seen. Evaluation of the intervertebral discs show: C2/C3: Intervertebral disc height is normal, with normal T2 signal. No focal disc herniation is seen. Bilateral C2-C3 neural foramina are patent. Bilateral apophyseal joints are intact with normal alignment. C3/C4: Intervertebral disc height is normal, with normal T2 signal. No focal disc herniation is seen. Bilateral C3-C4 neural foramina are patent. Bilateral apophyseal joints are intact with normal alignment. C4/C5: Intervertebral disc height is normal, with normal T2 signal. No focal disc herniation is seen. Bilateral C4-C5 neural foramina are patent. Bilateral apophyseal joints are intact with normal alignment. C5/C6: Intervertebral disc height is normal, with normal T2 signal. No focal disc herniation is seen. Bilateral C5-C6 neural foramina are patent. Bilateral apophyseal joints are intact with normal alignment. C6/C7: Intervertebral disc height is normal, with normal T2 signal. No focal disc herniation is seen. Bilateral C6-C7 neural foramina are patent. Bilateral apophyseal joints are intact with normal alignment. C7/T1: Intervertebral disc height is normal, with normal T2 signal. No focal disc herniation is seen. Bilateral C7-T1 neural foramina are patent. Bilateral apophyseal joints are intact with normal alignment. Cervical spinal cord is normal in position and signal. MR/MR cervical spine wo con IMPRESSION: 1. Normal MRI scan of the cervical spine. No focal cervical disc herniation, spinal stenosis, spinal cord or nerve root compression can be seen. 2. No focal lesion or signal abnormality could be seen in the cervical spinal cord. Electronically signed by: Sherrill House MD 12/20/2023 09:02 AM [facility] [place]
== END 2023-12-19 19:39 | disposition home or self-care (01) ==
LOC: HO.MRI 19:38
PROVIDERS: Visit Provider Physician Assistant
DX: G95.9 Disease of spinal cord, unspecified (principal)
CPT/HCPCS: 72141

== ENCOUNTER 2023-12-26 13:45 | Outpatient (AMB) | payer OTHER, SELFPAY ==
--- NOTE | 2023-12-26 14:14 | HO.SPINEOV ---
Intake Visit Reasons: STAT MRI follow up Intake Note: Ms. Pandya is here to F/u on the results to her MRI. Reservations And Ticketing Agent Required: No Allergies erythromycin base [ERYTHROMYCIN BASE] Allergy (Unknown, Verified 01/03/24 09:58) UNKNOWN latex [LATEX] Allergy (Unknown, Verified 01/03/24 09:58) UNKNOWN Adhesive tape Allergy (Unknown, Uncoded 01/03/24 09:58) Unknown Erthromycin Allergy (Unknown, Uncoded 01/03/24 09:58) Unknown Latex Allergy (Unknown, Uncoded 01/03/24 09:58) Unknown plaquenol Adverse Reaction (Intermediate, Uncoded 01/03/24 09:58) Vomiting Assessment & Plan Assessment & Plan (1) Cervicalgia: Code(s): M54.2 - Cervicalgia Category: Medical Plan Marie comes in for follow up regarding her STAT MRI. She did not have any neurological impingement noted on MRI imaging. She requested that she have a referral placed to [facility] so they could re-evaluate her for continued back pain. The referral was placed for her. She denied any other needs during this visit and reported she only came in for follow up to have the referral placed. I did discuss her cervical MRI with her, but she states she already read the report and acknowledges that she does not needs surgery. Coding Level of Care Code Est Pt Level 1 (66798) Diagnoses Cervicalgia M54.2
== END 2023-12-26 14:28 | disposition home or self-care (01) ==
PROVIDERS: Visit Provider Physician Assistant
DX: M54.2 Cervicalgia (principal)

== ENCOUNTER → 2023-12-26 13:45 | Outpatient (BNVA) | payer OTHER, SELFPAY | PROVIDERS: Visit Provider Physician Assistant | DX: M54.2 Cervicalgia (principal) | CPT/HCPCS: 99211 ==

== ENCOUNTER 2024-01-03 09:37 | Outpatient (AMB) | payer OTHER, SELFPAY ==
--- NOTE | 2024-01-03 09:52 | MHC.OFFVIS ---
Vital Signs 01/03/24 09:53 Height 5 ft 3 in Weight 168 lb 3.403 oz BMI 29.8 BP 112/62 Blood Pressure Location Lt brachial Position Sitting Pulse 58 Pulse Source Pulse Oximeter Pulse Oximetry (%) 98 Oxygen Delivery Method Room Air Intake Visit Reasons: Sindy/ RECIEVED Intake Note: Patient is here to follow up on Bechet's today. She is always nauseous and in pain. Allergies erythromycin base [ERYTHROMYCIN BASE] Allergy (Unknown, Verified 01/03/24 09:58) UNKNOWN latex [LATEX] Allergy (Unknown, Verified 01/03/24 09:58) UNKNOWN Adhesive tape Allergy (Unknown, Uncoded 01/03/24 09:58) Unknown Erthromycin Allergy (Unknown, Uncoded 01/03/24 09:58) Unknown Latex Allergy (Unknown, Uncoded 01/03/24 09:58) Unknown plaquenol Adverse Reaction (Intermediate, Uncoded 01/03/24 09:58) Vomiting HPI HPI Sindy/MR RECIEVED: Details: Patient has a history of Behcet's syndrome with positive pathergy testing, recurrent oral ulcers and now new diagnosis of bilateral uveitis being managed by pinsetter mechanic automatic Dr. Michel. Since my last appointment with patient she has had multiple medical conditions that complicate her situation. 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 She is currently experiencing explosive watery diarrhea and vomiting constantly unchanged on famotidine and sucralfate prescribed by GI for the last 2 months. She also has been treated for bilateral uveitis with topical steroid for a few months. Parts Interpreter tried hydroxychloroquine but she could not tolerate it due to vomiting. She only took hydroxychloroquine for [address] Rodriguez last month who increased colchicine from 0.6 mg daily to b.i.d. and reports that she has fewer ulcers in her mouth. Most recently her skin has less lesions But are still persistent in her extremities and anterior chest. She continues to have mid to lower back pain. She has been seeing warp bleaching vat tender Dr. Raúl ANDERSEN who has ordered a nuclear bone scan that is scheduled today for further evaluation of her pain. She has been on multiple muscle relaxers without benefit. Most recently she has been on Robaxin. She is allergic to adhesive and can not try lidocaine patch. She has minimal benefit with lidocaine topical. She has been using heating pad applied her back constantly with some benefit but it has caused skin lesions. she continues to have recurrent falls. She uses a walker to ambulate. She had EMG bilateral upper extremity lower extremity in October but I do not have results. DErmatology Ritu Mcgrath hx melanoma 2 sites that were resected 2018. she has erythema development in the scar of the lesion that was resected in her back. she was told that she could not be on a medication Humira if needed in the future due to melanoma history. 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] Personal history of malignant melanoma of skin Muscle spasm of back Chronic pain syndrome Generalized anxiety disorder Major depressive disorder, single episode, in full remission Surgical History Hx laparoscopic cholecystectomy (10/22/23) Hx of tonsillectomy History of appendectomy Social History Household Members: Spouse and Family Housing: House Are you a primary livestock caretaker to a significant other at home: No Do you presently have visiting nurse or other home services: No Alcohol intake: current Alcohol intake frequency: holidays/special occasions only Patient Tobacco Use Status: Former Tobacco user Tobacco use type: Cigarette e-Cigarette/Vaping Use: Currently Using Second Hand Smoke Exposure: No Substance Use Type: Other and Caffiene Advance Directives Date on File: 10/29/23 service: No Review of Systems Const All systems reviewed & are unremarkable except as noted in HPI and below Physical Exam Vital Signs: Last Vital Signs Pulse 58 01/03/24 09:53 BP 112/62 01/03/24 09:53 Pulse Ox 98 01/03/24 09:53 Oxygen Delivery Method Room Air 01/03/24 09:53 BMI result Body Mass Index 29.8 Const Other: General: Comfortable Ocular: erythema and sclera noted left worse than right CVS: RRR Respiratory: clear to auscultation bilaterally. Good respiratory effort Skin: erythematous circular lesions on anterior chest, bilateral arms and legs. erythema ab igne present mid to lower back MSK: tenderness of PIP knees bilaterally in hands. No synovitis. She is unable to abduct shoulders over 100 degrees bilaterally. Limited shoulder external rotation internal rotation due to pain. she has diffuse tenderness of spinous process midthoracic spine to lower lumbar spine. She has tenderness of paraspinal muscles and laterally. Patient ambulates with walker. abnormal gait. Assessment & Plan Assessment & Plan (1) Behcet disease with multisystem involvement: Comment: history of Behcet's syndrome with positive pathergy test, recurrent ulcerations and bilateral uveitis. recently complicated with autoimmune atrophic gastritis causing uncontrolled watery diarrhea and vomiting, uncontrolled back pain, recurrent falls and weakness. She is seeing multiple specialist to help manage her conditions. she has failed treatment with colchicine to help manage oral ulcerations from Behcet's syndrome. She continues to have skin lesions and requires topical steroid to treat her uveitis. she did not tolerate hydroxychloroquine due to vomiting. Diarrhea and vomiting are uncontrolled. Colchicine may be contributing 2 diarrhea, which is why I asked her to discontinue it. we discussed medical management with DMARD therapy methotrexate, which is indicated for Behcet's syndrome to treat recurrent oral ulcers, skin lesions and uveitis. discussed side effects, benefits and drug monitoring. I recommend that she be started on subcutaneous methotrexate due to favorable safety profile over oral methotrexate In setting of her current GI complaints. Code(s): M35.2 - Behcet's disease Category: Medical Plan: Labs ordered for baseline prior to starting methotrexate. After lab results are back, we will send prescription for methotrexate liquid, syringes and schedule patient an appointment with nurse for teaching. she will then need to have labs a month after starting methotrexate. She will be following up with pinsetter mechanic automatic Dr. Michel next week. I will forward my note to his office. I recommended that she contact GI to help further manage her uncontrolled diarrhea and vomiting with consideration of medication adjustments. Requesting EMG report from [facility] Return to clinic in 2 months (2) Back pain: Comment: myofascial pain is contributing. Failed multiple muscle relaxers. She also is currently being seen at [facility] and being worked up for her pain. Code(s): M54.9 - Dorsalgia, unspecified Category: Medical Plan: we will switch Robaxin to tizanidine 2 mg t.i.d.. She has an appointment with warp bleaching vat tender January 08. I have asked her to consider up titration if she does not find benefit on the current dose. She has developed erythema ab igne from heating pad use. I have recommended that she decrease her use of heating pad but patient reports using the heating pad is the only thing that has provided her relief. I recommend that she have at least a towel as a barrier in between the heating pad in her skin she will continue to follow up with warp bleaching vat tender Dr. 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 she did not tolerate hydroxychloroquine Prescribed by pinsetter mechanic automatic Dr. Michel. Code(s): H20.9 - Unspecified iridocyclitis Category: Medical Plan: I recommend starting methotrexate subcutaneous injection with initial dosing at 15 mg once weekly to help control Behcet's syndrome associated recurrent oral ulcers, skin lesions and bilateral uveitis. I am requesting last clinic note from Dr. Michel's office she has an appointment with Ophthalmology next week, which encouraged her to follow-up with continued monitoring of her ocular condition. Defer steroid dosing to Ophthalmology for her ocular condition. (5) Fibromyalgia: Comment: not address this visit Code(s): M79.7 - Fibromyalgia Category: Medical Plan: not address this visit Plan . Orders: Orders Liver Panel Today M35.2 - Behcet's disease Creatinine Today M35.2 - Behcet's disease Complete Blood Count Auto Diff Today M35.2 - Behcet's disease Hepatitis B,C Profile Today M35.2 - Behcet's disease C Reactive Protein Today M35.2 - Behcet's disease Erythrocyte Sedimentation Rate Today M35.2 - Behcet's disease T Spot TB Today M35.2 - Behcet's disease Medications: New tizanidine Take 1 tablet TID replace prior muscle relaxers 2 mg PO Q8H PRN 90 caps 2RF muscle spasticity Discontinued methocarbamol Discontinued Reason: Doctor's Order 1,500 mg (2 x 750 mg) PO QID PRN 20 tabs 0RF pain Coding Level of Care Code Est Pt Level 5 (99362) Complex EM visit Add On G2211 Diagnoses Behcet disease with multisystem involvement M35.2 Back pain M54.9 Other retirement (current) drug therapy Z79.899 Uveitis H20.9 Fibromyalgia M79.7
[2024-01-03 09:53] VITALS: BP 112/62; PULSE 58; O2SAT 98; BMI 29.8
== END 2024-01-03 10:45 | disposition home or self-care (01) ==
PROVIDERS: Visit Provider Internal Medicine Rheumatology
DX: M35.2 Behcet's disease (principal); M54.9 Dorsalgia, unspecified; Z79.899 Other long term (current) drug therapy; H20.9 Unspecified iridocyclitis; M79.7 Fibromyalgia
CPT/HCPCS: 99214; G2211

== ENCOUNTER 2024-01-03 09:37 | Outpatient (REF) | payer OTHER, SELFPAY ==
[2024-01-03 15:54] LABS: MANUAL DIFF FLAG NO
[2024-01-03 16:45] LABS: Basophils Absolute Auto 0.1 X10*3/uL (0.0-0.2); Basophils Percent Auto 0.7 % (0-2); Eosinophils Absolute Auto 0.1 X10*3/uL (0.0-0.4); Hematocrit 37.6 % (37.0-47.0); Hemoglobin 13.4 g/dl (12.0-16.0); Imm Gran Abs Auto 0.02 X10*3/uL (0.00-0.03); Imm Gran Pct Auto 0.3 % (0.0-0.4); Lymphocytes Absolute Auto 2.3 X10*3/uL (1.2-4.9); Lymphocytes Percent Auto 32.8 % (20-40); Mean Corpuscular HGB Conc 35.6 g/dl (31.0-35.0); Mean Corpuscular Hemoglobin 28.3 pg (27.0-33.0); Mean Corpuscular Volume 79.5 fL (80.0-98.0); Mean Platelet Volume 9.2 fL (9.4-12.3); Monocytes Absolute Auto 0.4 X10*3/uL (0.1-1.2); Monocytes Percent Auto 6.2 % (2-11); Platelet Count 304 X10*3/uL (160-400); Red Blood Count 4.73 X10*6/uL (4.20-5.50); Red Cell Distribution Width 12.9 % (11.0-16.0); White Blood Count 6.9 X10*3/uL (4.8-10.8)
[2024-01-03 17:38] LABS: Alanine Aminotransferase 39 U/L (0-31); Albumin Level 4.5 g/dL (3.5-5.0); Aspartate Amino Transferase 23 U/L (5-31); Bilirubin Direct 0.2 mg/dL (0.0-0.5); Bilirubin Total 0.5 mg/dL (0.0-1.0); C Reactive Protein < 0.10 mg/dL (< or = 0.50); Estimated Glomerular Filt Rate > 60; Total Protein 6.5 g/dL (6.5-8.0)
[2024-01-03 17:41] LABS: Erythrocyte Sedimentation Rate 2 MM/HR (0-20)
[2024-01-03 18:53] LABS: Alkaline Phosphatase 73 U/L (39-117)
[2024-01-04 08:09] LABS: HBS Num1 4.72 mIU/mL (0-7.99); HBsAGNum1 0.46 S/CO (0.00-0.99); Hepatitis B Core Antibody Nonreactive (Nonreactive); Hepatitis B Surface Antigen Negative (Negative); ~HepC Num1 0.07 S/CO (0.00-0.79); ~Hepatitis B Surface Antibody NONREACTIVE (Nonreactive); ~Hepatitis C Antibody Nonreactive (Nonreactive)
[2024-01-06 05:18] LABS: TS Negative Control Passed; TS Panel A 0; TS Panel B 0; TS Positive Control Passed; TSpotTB Negative (Negative)
== END 2024-01-03 09:38 | disposition home or self-care (01) ==
LOC: HO.LAB 09:37
PROVIDERS: Visit Provider Internal Medicine Rheumatology
DX: M35.2 Behcet's disease (principal); M54.9 Dorsalgia, unspecified; M79.7 Fibromyalgia; H20.9 Unspecified iridocyclitis; Z79.899 Other long term (current) drug therapy
CPT/HCPCS: 36415; 80076; 82565; 85025; 85652; 86140; 86481; 86704; 86706; 86803; 87340; 99212

== ENCOUNTER 2024-01-14 13:20 | Outpatient (REF) | payer OTHER, SELFPAY ==
[2024-01-14 14:34] LABS: Alanine Aminotransferase 16 U/L (0-31)
== END 2024-01-14 13:21 | disposition home or self-care (01) ==
LOC: HO.LAB 13:20
PROVIDERS: Visit Provider Internal Medicine Rheumatology
DX: R74.01 Elevation of levels of liver transaminase levels (principal)
CPT/HCPCS: 36415; 84460

== ENCOUNTER 2024-01-16 11:26 | Outpatient (REF) | payer OTHER, SELFPAY ==
[2024-01-16 11:34] LABS: Appearance Urine Cloudy; Color Urine Dark Yellow; Glucose Urine UA Negative (Negative); Leukocyte Esterase Urine Moderate (2+) (Negative); Nitrite Urine Negative (Negative); Specific Gravity - Urine 1.015 (1.005-1.025); UMIC TRIGGER UA YES; Urine Blood Moderate (2+) (Negative); Urine Ketones Trace mg/dL (Negative); Urine Protein Negative (Neg-Trace)
[2024-01-16 11:37] LABS: Bacteria Urine 4+ (None Seen); Hyaline Casts Urine 0-2 /LPF (0-2); RBC Urine >20 /HPF (0-2); Squamous Epithelial Cell Urine 0-2 /HPF (0-2); WBC Urine 21-50 /HPF (0-5)
--- OUTSIDE RECORDS SUMMARY | 2024-01-22 18:08 | XMS_ITS | Patient Health Record ---
Author Organization [facility], [facility] Address [address] [place] [address] [phone] Support Name Relationship Address Phone JAVIER REYNOLDS [...] Oral Ubrelvy 100 mg tablet 12/01/2021 Active PLAN OF TREATMENT No Information Insurance Providers Payer Name Payer Address Payer Phone Subscriber Number Group Number Insured Name Patient Relationship to Insured Coverage Start Date Coverage End Date [facility] [address] [place] [phone] [id number] JAVIER REYNOLDS Self - patient is the insured
== END 2024-01-16 11:27 | disposition home or self-care (01) ==
LOC: HO.LNP 11:26
PROVIDERS: Visit Provider Internal Medicine Rheumatology
DX: R33.9 Retention of urine, unspecified (principal)
CPT/HCPCS: 81001; 87086; 87088; 87186

== ENCOUNTER 2024-01-22 08:01 | Emergency (ER) | payer OTHER, SELFPAY ==
[2024-01-22 08:07] VITALS: BP 118/64; PULSE 63; RESP 20; TEMP 36.6; O2SAT 95; BMI 28.7
--- NOTE | 2024-01-22 08:17 | ED.FEMALEGU ---
HPI - Female Genitourinary General Chief complaint: Urogenital-Female Stated complaint: Pain upon urination, fever, chills Time Seen by Provider: 01/22/24 08:17 Source: patient Mode of arrival: ambulatory Limitations: no limitations History of Present Illness ED Provider: Lake Bradley PA-C HPI Narrative: 34-year-old female with a history of Behcet's disease, fibromyalgia, headaches, recent E coli UTI who presents to the ER for evaluation of ongoing urinary tract symptoms. She states she completed 3 days of Bactrim last week but is having ongoing symptoms including bladder pain, dysuria, foul-smelling urine. She now has developed left-sided lower back pain, chills, fever of 103 today. She is also having trouble passing her urine, with urgency and frequency but only passing small amounts. She denies any other abdominal pain, chest pain, shortness of breath. MD elicited complaint: UTI , back pain and other (Vomiting and fever) Onset (ago): day(s) Location of symptoms: suprapubic and urethra Severity: severe Severity scale (1-10): 7 Quality of pain: sharp, dull, burning and stabbing Consistency: constant Vaginal discharge: none Vaginal bleeding: none Urinary symptoms: Dysuria, Urgency, Frequency, Foul Smelling Urine, Difficulty Urinating and Flank Pain Exacerbating factors: urination Relieving factors: none Associated symptoms: fever, chills, nausea and vomiting Treatment prior to arrival: none Sexual activity: No Patient : No Related Data Home Medications ?Medication ?Instructions ?Recorded ?Confirmed duloxetine 30 mg capsule,delayed 30 mg PO DAILY 08/04/22 11/06/23 release buspirone 15 mg tablet 15 mg PO BID 10/18/23 11/06/23 dextroamphetamine-amphetamine 10 10 mg PO DAILY@1200 PRN attention 10/18/23 11/06/23 mg tablet dextroamphetamine-amphetamine 10 20 mg PO DAILY 10/18/23 11/06/23 mg tablet duloxetine 60 mg capsule,delayed 60 mg PO DAILY 10/18/23 11/06/23 release gabapentin 800 mg tablet 800 mg PO TID 10/18/23 11/06/23 mupirocin 2 % topical ointment 1 appl topical BID PRN Rash 10/18/23 11/06/23 acetaminophen 500 mg tablet 1,000 mg PO Q6H PRN 01/02/24 (Tylenol Extra Strength) colchicine 0.6 mg capsule 0.6 mg PO DAILY 01/02/24 (Mitigare) methadone 10 mg/5 mL oral solution 40 mg PO Q4H 01/02/24 qjazvdev-mwpihpitd-xoirihiv 3.5 1 drp ophthalmic (eye) Q12H 01/02/24 mg/mL-10,000 unit/mL-0.1% eye drops ondansetron 4 mg disintegrating 4 mg PO Q8H 01/02/24 tablet turmeric 400 mg capsule mg PO 01/02/24 glucosamine-chondroitin 250 mg-200 2 tab PO TID 01/03/24 mg tablet (Osteo Bi-Flex) Previous Rx's ?Medication ?Instructions ?Recorded acetaminophen 325 mg tablet 650 mg (2 x 325 mg) PO Q6H PRN 10/26/23 Pain, Mild (Pain Scale 1-3), fever or headache #1 tab famotidine 20 mg tablet 20 mg PO BID #1 tab 10/26/23 lorazepam 0.5 mg tablet 0.5 mg PO QID PRN Anxiety #7 tabs 10/26/23 oxycodone 5 mg tablet 10 mg (2 x 5 mg) PO Q6H PRN Pain, 10/26/23 Moderate(Pain Scale 4-6) #7 tabs polyethylene glycol 3350 17 gram 17 g PO DAILY #14 ea 10/26/23 oral powder packet tizanidine 2 mg capsule 2 mg PO Q8H PRN muscle spasticity 01/03/24 #90 caps Magic Mouthwash 240 ml PO .COMPLEX #240 mL 01/15/24 Diphen/Lido/Antacid 1:1:1 240 mL suspension sulfamethoxazole 800 1 tab PO BID #6 tabs 01/16/24 mg-trimethoprim 160 mg tablet (Bactrim DS) cefuroxime axetil 500 mg tablet 500 mg PO BID 7 days #14 tabs 01/22/24 nitrofurantoin macrocrystal 100 mg 100 mg PO BID #14 caps 01/22/24 capsule ondansetron 4 mg disintegrating 4 mg PO Q8H PRN nausea and 01/22/24 tablet vomiting #7 tabs phenazopyridine 100 mg tablet 100 mg PO TID PRN pain 6 doses #6 01/22/24 (Pyridium) tabs Allergies Allergy/AdvReac Type Severity Reaction Status Date / Time erythromycin base Allergy Unknown UNKNOWN Verified 01/22/24 08:08 [ERYTHROMYCIN BASE] latex [LATEX] Allergy Unknown UNKNOWN Verified 01/22/24 08:08 acetaminophen [From Tylenol] AdvReac Unknown Verified 01/22/24 08:08 Adhesive tape Allergy Unknown Unknown Uncoded 01/22/24 08:08 Erthromycin Allergy Unknown Unknown Uncoded 01/22/24 08:08 Latex Allergy Unknown Unknown Uncoded 01/22/24 08:08 plaquenol AdvReac Intermediate Vomiting Uncoded 01/22/24 08:08 Review of Systems Review of Systems: Yes all other systems are reviewed and are negative PMFSH Past Medical History Medical History (Updated 01/22/24 @ 10:52 by ALONSO Man) History of enlarged adenoids TMJ (temporomandibular joint syndrome) Other specified disorders of bladder 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] Personal history of malignant melanoma of skin Muscle spasm of back Chronic pain syndrome Generalized anxiety disorder Major depressive disorder, single episode, in full remission Surgical History Hx laparoscopic cholecystectomy (10/22/23) Hx of tonsillectomy History of appendectomy Social History Social History Household Members: Spouse and Family Housing: House Are you a primary healthcare network pricing consultant to a significant other at home: No Do you presently have visiting nurse or other home services: No Alcohol intake: current Alcohol intake frequency: holidays/special occasions only Patient Tobacco Use Status: Former Tobacco user Tobacco use type: Cigarette e-Cigarette/Vaping Use: Currently Using Second Hand Smoke Exposure: No Substance Use Type: Other and Caffiene Advance Directives: Yes Advance Directives on File: Yes Advance Directives Date on File: 10/29/23 service: No Physical Exam Vital Signs: Vital Signs: Last Vital Signs Temp 98 F 01/22/24 08:07 Pulse 47 L 01/22/24 10:07 Resp 16 01/22/24 10:07 BP 97/58 L 01/22/24 10:07 Pulse Ox 96 01/22/24 10:07 O2 Del Method Room Air 01/22/24 10:07 BMI result Body Mass Index 28.7 Appearance: Alert. Oriented X3. Appears uncomfortable, in pain, Head: normocephalic, atraumatic. Eyes: Pupils equal, round and reactive to light. ENT: Pharynx normal. No tonsillar swelling or exudate. Neck: Normal inspection. Neck supple. CVS: Normal heart rate and rhythm. Pulses normal. Respiratory: No respiratory distress. Breath sounds normal. Abdomen: Soft with suprapubic tenderness, no rebound or guarding, normal +BS x4. +CVA tenderness Skin: Skin warm and dry. Normal skin color. Normal skin turgor. No rashes. Extremities: No lower extremity edema. No joint swelling. Neuro/psych: Oriented X 3. nonfocal Normal speech and cognition. Medications Administered Discontinued Medications Generic Name Dose Route Start Last Admin Trade Name Freq PRN Reason Stop Dose Admin Ceftriaxone Sodium 1 gm 01/22/24 09:29 01/22/24 09:56 Ceftriaxone Sodium 1 Gm Vial IVPUSH 01/22/24 09:30 1 gm ONCE ONE Administration Ketorolac Tromethamine 15 mg 01/22/24 09:29 01/22/24 09:55 Ketorolac Tromethamine 15 Mg/Ml Vial IVPUSH 01/22/24 09:30 15 mg ONCE ONE Administration Morphine Sulfate 4 mg 01/22/24 09:29 01/22/24 09:56 Morphine Sulfate 4 Mg/Ml Cartridge IVPUSH 01/22/24 09:30 4 mg ONCE ONE Administration Protocol Ondansetron HCl 4 mg 01/22/24 09:29 01/22/24 09:55 Ondansetron Hcl 4 Mg/2 Ml Vial IVPUSH 01/22/24 09:30 4 mg ONCE ONE Administration Medical Decision Making Medical Decision Making MDM Narrative: 34-year-old female with history of Behcet's disease, fibromyalgia, migraines, who recently completed a a course of Bactrim for UTI last week presents to the ER for evaluation of ongoing symptoms. She has a reported fever of 103 at home this morning along with nausea and vomiting. On arrival she is uncomfortable, hunching over in bed. She is not febrile or tachycardic here. Low suspicion for sepsis. There is concern for pyelonephritis given her symptoms and clinical presentation. Lab work is reassuring with no leukocytosis, no anemia. Her renal function is normal. Her urinalysis is still positive for infection. She does have a pansensitive E coli on her urine culture from January 15. An IV was established and she was given IV Rocephin, IV morphine, IV Zofran with significant improvement in her symptoms when re-evaluated. Comfortable discharge home with treatment for pyelonephritis with oral Ceftin 500 mg bid x 1 week. She was given strict return precautions to return to the ER if she had new or worsening symptoms. Stable for discharge home. Differential Diagnosis Differential Diagnoses: The differential diagnosis associated with the presentation includes UTI, pyelonephritis, obstructing kidney stone, colitis, low suspicion for sepsis Admission/Observation Consideration of admission/observation: Escalation of care including admission/observation considered Lab Data MDM Lab Attestation statement: I reviewed the patient's lab results. No leukocytosis, normal renal function, no anemia 01/22/24 08:20 01/22/24 08:20 Labs: Lab Results 01/22/24 01/22/24 Range/Units 08:20 09:20 WBC 6.2 (4.8-10.8) X10*3/uL RBC 4.71 (4.20-5.50) X10*6/uL Hgb 13.6 (12.0-16.0) g/dl Hct 39.1 (37.0-47.0) % MCV 83.0 (80.0-98.0) fL MCH 28.9 (27.0-33.0) pg MCHC 34.8 (31.0-35.0) g/dl RDW 12.9 (11.0-16.0) % Plt Count 246 (160-400) X10*3/uL MPV 9.2 L (9.4-12.3) fL Immature Gran % (Auto) 0.2 (0.0-0.4) % Neut % (Auto) 45.0 (45-73) % Lymph % (Auto) 38.7 (20-40) % [place] % (Auto) 7.9 (2-11) % Eos % (Auto) 7.6 H (0-4) % Baso % (Auto) 0.6 (0-2) % Lymph # (Auto) 2.4 (1.2-4.9) X10*3/uL [place] # (Auto) 0.5 (0.1-1.2) X10*3/uL Eos # (Auto) 0.5 H (0.0-0.4) X10*3/uL Baso # (Auto) 0.0 (0.0-0.2) X10*3/uL Abs Immat Gran (auto) 0.01 (0.00-0.03) X10*3/uL Absolute Neuts (auto) 2.8 (2.0-8.3) x10*3/uL Absolute Nucleated RBC 0.000 (0.0-0.012) X10*3/uL Nucleated RBC % (auto) 0.0 (0.0-0.2) /100WBC Sodium 138 (135-145) mmol/L Potassium 3.5 D (3.3-5.1) mmol/L Chloride 106 (96-108) mmol/L Carbon Dioxide 22 (22-29) mmol/L Anion Gap 14 (12-20) BUN 7 L (9-16) mg/dL Creatinine 0.78 (0.5-1.4) mg/dL Estim Creat Clear Calc 96.6 Estimated GFR > 60 Random Glucose 124 H (60-115) mg/dL Calcium 9.4 (8.4-10.2) mg/dL Urine Color Dark Yellow Urine Appearance Cloudy Urine pH 6.0 (5.0-9.0) Ur Specific [place] 1.020 (1.005-1.025) Urine Protein Trace (Neg-Trace) mg/dL Urine Glucose (UA) Negative (Negative) mg/dL Urine Ketones Trace (Negative) mg/dL Urine Blood Large (3+) H (Negative) Urine Nitrite Negative (Negative) Ur Leukocyte Esterase Moderate (2+) H (Negative) Urine RBC >20 H (0-2) /HPF Urine WBC 11-20 H (0-5) /HPF Ur Squamous Epith Cells >20 (0-2) /HPF Urine Bacteria Trace (None Seen) Hyaline Casts 0-2 (0-2) /LPF External Record Review External record reviewed: Outpatient record, Prior outpatient labs and Prior outpatient radiology Tests considered The following testing was considered but not selected: Considered renal ultrasound versus CT scan of the abdomen however clinically improved after treatments Prescription Management I considered prescription management with: Pain Medication and Antibiotic Chronic Conditions Patient?s care impacted by: Other (Presents disease, fibromyalgia) Critical Care Time Critical Care Time Critical Care Time: Yes Total Critical Care Time: 32 Attestation: I have personally provided critical care time exclusive of time spent on separately billable procedures. Time includes review of lab data, radiology results, bedside re-evaluation of vital signs and cardiopulmonary status after administration of IV narcotics, and monitoring for potential decompensation. Intervention performed as documented. Discharge Plan Discharge Clinical Impression: Pyelonephritis Patient Disposition: Home, Self-Care Instructions: Kidney Infection (ED) Additional Instructions: Take the prescribed antibiotics as directed, complete the entire course and do not miss any doses. Start them tomorrow morning, you were given a dose in the ER today that is long acting. Take the prescribed Pyridium as needed for bladder pain and spasm. This has a known side effect or turn your urine orange that is normal. Make sure drinking plenty of fluids. Follow-up with your doctor. If you develop new or worsening symptoms call 911 or come back to the ER for further evaluation. Prescriptions: New cefuroxime axetil 500 mg tablet 500 mg PO BID 7 Days Qty: 14 0RF phenazopyridine [Pyridium] 100 mg tablet 100 mg PO TID PRN (Reason: pain) Qty: 6 0RF ondansetron 4 mg tablet,disintegrating 4 mg PO Q8H PRN (Reason: nausea and vomiting) Qty: 7 0RF No Action Magic Mouthwash Diphen/Lido/Antacid 1:1:1 240 mL suspension 240 ml PO .COMPLEX Qty: 240 1RF Rx Instructions: 240 mL orally; Lidocaine Viscous 2 % 80mL; diphenhydramine 12.5 mg/5 mL 80mL; aluminum-mag hydrox-simeth 582ts-080dc-12bt/5mL 80mL Swish, gargle and split 5 mL every 4-6 hours as needed. sulfamethoxazole-trimethoprim [Bactrim DS] 800-160 mg tablet 1 tab PO BID Qty: 6 0RF nitrofurantoin macrocrystal 100 mg capsule 100 mg PO BID Qty: 14 0RF Rx Instructions: must administer with a meal/food dextroamphetamine-amphetamine 10 mg tablet 20 mg PO DAILY Rx Instructions: TAKE 2 TABLETS BY MOUTH EVERY MORNING AND TAKE 1 TABLET EVERY AFTERNOON gabapentin 800 mg tablet 800 mg PO TID mupirocin 2 % ointment 1 appl topical BID PRN (Reason: Rash) buspirone 15 mg tablet 15 mg PO BID duloxetine 60 mg capsule,delayed release(DR/EC) 60 mg PO DAILY dextroamphetamine-amphetamine 10 mg tablet 10 mg PO DAILY@1200 PRN (Reason: attention) polyethylene glycol 3350 17 gram Powder In Packet 17 g PO DAILY Qty: 14 0RF famotidine 20 mg Tablet 20 mg PO BID Qty: 1 0RF oxycodone 5 mg Tablet 10 mg PO Q6H PRN (Reason: Pain, Moderate(Pain Scale 4-6)) Qty: 7 0RF Rx Instructions: Partial Fill upon patient request. lorazepam 0.5 mg tablet 0.5 mg PO QID PRN (Reason: Anxiety) Qty: 7 0RF acetaminophen 325 mg Tablet 650 mg PO Q6H PRN (Reason: Pain, Mild (Pain Scale 1-3), fever or headache) Qty: 1 0RF duloxetine 30 mg capsule,delayed release(DR/EC) 30 mg PO DAILY methadone 10 mg/5 mL solution 40 mg PO Q4H colchicine [Mitigare] 0.6 mg capsule 0.6 mg PO DAILY neomycin-polymyxin B-dexameth 3.5mg/mL-10,000 unit/mL-0.1 % drops,suspension 1 drp ophthalmic (eye) Q12H ondansetron 4 mg tablet,disintegrating 4 mg PO Q8H turmeric 400 mg capsule PO acetaminophen [Tylenol Extra Strength] 500 mg tablet 1,000 mg PO Q6H PRN glucosamine-chondroitin [Osteo Bi-Flex] 250-200 mg tablet 2 tab PO TID Rx Instructions: give after food/meal tizanidine 2 mg capsule 2 mg PO Q8H PRN (Reason: muscle spasticity) Qty: 90 2RF Rx Instructions: Take 1 tablet TID replace prior muscle relaxers Print Language: Albanian
[2024-01-22 08:27] LABS: MANUAL DIFF FLAG NO
[2024-01-22 08:28] LABS: Basophils Percent Auto 0.6 % (0-2); Eosinophils Absolute Auto 0.5 X10*3/uL (0.0-0.4); Eosinophils Percent Auto 7.6 % (0-4); Hematocrit 39.1 % (37.0-47.0); Hemoglobin 13.6 g/dl (12.0-16.0); Imm Gran Abs Auto 0.01 X10*3/uL (0.00-0.03); Imm Gran Pct Auto 0.2 % (0.0-0.4); Lymphocytes Absolute Auto 2.4 X10*3/uL (1.2-4.9); Lymphocytes Percent Auto 38.7 % (20-40); Mean Corpuscular HGB Conc 34.8 g/dl (31.0-35.0); Mean Corpuscular Hemoglobin 28.9 pg (27.0-33.0); Mean Platelet Volume 9.2 fL (9.4-12.3); Monocytes Absolute Auto 0.5 X10*3/uL (0.1-1.2); Monocytes Percent Auto 7.9 % (2-11); Neutrophils Absolute Auto 2.8 x10*3/uL (2.0-8.3); Platelet Count 246 X10*3/uL (160-400); Red Blood Count 4.71 X10*6/uL (4.20-5.50); Red Cell Distribution Width 12.9 % (11.0-16.0); White Blood Count 6.2 X10*3/uL (4.8-10.8)
[2024-01-22 08:45] LABS: Anion Gap 14 (12-20); Blood Urea Nitrogen 7 mg/dL (9-16); Calcium 9.4 mg/dL (8.4-10.2); Carbon Dioxide 22 mmol/L (22-29); Chloride 106 mmol/L (96-108); Creatinine Clr Calc Pharmacy 96.6; Estimated Glomerular Filt Rate > 60; Glucose Random 124 mg/dL (60-115); Potassium 3.5 mmol/L (3.3-5.1); Sodium 138 mmol/L (135-145)
[2024-01-22 09:27] LABS: Appearance Urine Cloudy; Color Urine Dark Yellow; Glucose Urine UA Negative (Negative); Leukocyte Esterase Urine Moderate (2+) (Negative); Nitrite Urine Negative (Negative); UMIC TRIGGER UACC YES; Urine Blood Large (3+) (Negative); Urine Ketones Trace mg/dL (Negative); Urine Protein Trace mg/dL (Neg-Trace)
[2024-01-22 09:29] LABS: Bacteria Urine Trace (None Seen); Hyaline Casts Urine 0-2 /LPF (0-2); RBC Urine >20 /HPF (0-2); Squamous Epithelial Cell Urine >20 /HPF (0-2); UACC Culture Trigger YES
[2024-01-22] MEDS: ondansetron HCL 4 MG/2 ML VIAL IVPUSH (09:55)
[2024-01-22] MEDS: Ketorolac Tromethamine 15 MG/ML VIAL IVPUSH (09:55)
[2024-01-22] MEDS: Morphine Sulfate 4 MG/ML CARTRIDGE IVPUSH (09:56)
[2024-01-22] MEDS: cefTRIAXone sodium 1 GM VIAL IVPUSH (09:56)
[2024-01-22 10:07] VITALS: BP 97/58; PULSE 47; RESP 16; O2SAT 96
[2024-01-22 11:01] VITALS: BP 97/58; PULSE 47; RESP 18; TEMP 36.6; O2SAT 96
--- OUTSIDE RECORDS SUMMARY | 2024-01-23 18:42 | XMS_ITS | Patient Health Record ---
Author Organization [facility], [facility] Address [address] [place] [address] [phone] Support Name Relationship Address Phone JAVIER REYNOLDS [...] [facility] [address] [place] [address] [id number] JAVIER REYNOLDS Self - patient is the insured
== END 2024-01-22 11:02 | disposition home or self-care (01) ==
PROVIDERS: Emergency Provider Emergency Medicine
DX: N12 Tubulo-interstitial nephritis, not specified as acute or chronic (principal); R30.0 Dysuria; R39.89 Other symptoms and signs involving the genitourinary system; M54.50 Low back pain, unspecified; R39.15 Urgency of urination; Z79.899 Other long term (current) drug therapy
CPT/HCPCS: 36415; 80048; 81001; 85025; 87086; 96374; 96375; 99284; J0696; J1885; J2270; J2405

== ENCOUNTER 2024-02-04 14:55 | Outpatient (AMB) | payer OTHER, SELFPAY ==
--- NOTE | 2024-02-04 14:56 | MHC.OFFVIS ---
Vital Signs 02/04/24 15:00 Height 5 ft 3 in Weight 162 lb BMI 28.7 Blood Pressure Location Lt brachial Position Sitting Intake Visit Reasons: Chronic atrophic gastritis without bleeding Intake Note: Marie presents in the office as a Keila patient for chronic atrophic gastritis. CC: Master Control Operator Required: No Allergies erythromycin base [ERYTHROMYCIN BASE] Allergy (Unknown, Verified 02/04/24 15:02) UNKNOWN latex [LATEX] Allergy (Unknown, Verified 02/04/24 15:02) UNKNOWN acetaminophen [From Tylenol] Adverse Reaction (Verified 02/04/24 15:02) Unknown Adhesive tape Allergy (Unknown, Uncoded 02/04/24 15:02) Unknown Erthromycin Allergy (Unknown, Uncoded 02/04/24 15:02) Unknown Latex Allergy (Unknown, Uncoded 02/04/24 15:02) Unknown plaquenol Adverse Reaction (Intermediate, Uncoded 02/04/24 15:02) Vomiting HPI Comments Details: 34 y.o F with PMH of Behcet's, reported Ehler Danlos, melanoma, intermittent asthma, chronic pain syndrome, interstitial cystitis, who is coming to follow up. Pt was seen for inpatietn consultation 10/2023 for RUQ pain. W/up was significant for abnormal HIDA scan, and gastritis/duodenitis. Pt is s/p cholecystectomy 10/22/23. Reports near resolution of R sided abd pain but continues to endorse diffuse abd pain and bloating with nausea paula 10-20 mins after eating. This is assoc with constipation. Prev was struggling with diarrhea but now bowel movements have shifted to constipation. Pain gets worse with the urge to defecate. Prev has been seen by [facility]. Dr Colon. Has had extensive w/up including EGD/colo 2022. 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] Personal history of malignant melanoma of skin Muscle spasm of back Chronic pain syndrome Generalized anxiety disorder Major depressive disorder, single episode, in full remission Surgical History Hx laparoscopic cholecystectomy (10/22/23) Hx of tonsillectomy History of appendectomy Social History Household Members: Spouse and Family Housing: House Are you a primary pet care attendant to a significant other at home: No Do you presently have visiting nurse or other home services: No Alcohol intake: current Alcohol intake frequency: holidays/special occasions only Patient Tobacco Use Status: Former Tobacco user Tobacco use type: Cigarette e-Cigarette/Vaping Use: Currently Using Second Hand Smoke Exposure: No Substance Use Type: Other and Caffiene Advance Directives Date on File: 10/29/23 service: No Review of Systems Const All systems reviewed & are unremarkable except as noted in HPI and below Physical Exam Vital Signs: BMI result Body Mass Index 28.7 Assessment & Plan Assessment & Plan (1) Atrophic gastritis: Code(s): K29.40 - Chronic atrophic gastritis without bleeding Category: Medical (2) Change in bowel habit: Code(s): R19.4 - Change in bowel habit Category: Medical (3) Abdominal bloating: Code(s): R14.0 - Abdominal distension (gaseous) Category: Medical Plan DDx includes postprandial distress 2/2 atrophic gastritis vs IBS-mixed, vs IMO due to constipation. Plan: - Labs as below - GES - Will also obtain small bowel imaging - In the meantime, will start on motegrity which should help with IBS related constipation as well as gastric emptying. - Bentyl Rxed as per pt's preference Follow up 2 months Orders: Orders NM gastric emptying study 02/04/24 R11.10 - Vomiting, unspecified CT enterography 02/04/24 R14.0 - Abdominal distension (gaseous), R19.4 - Change in bowel habit Medications: New prucalopride (Motegrity) 1 mg PO DAILY 90 tabs 0RF 90 days dicyclomine 10 mg PO BID PRN 180 caps 0RF abdominal pain 90 days Coding Level of Care Code Est Pt Level 4 (32280) Complex EM visit Add On G2211 Diagnoses Atrophic gastritis K29.40 Change in bowel habit R19.4 Abdominal bloating R14.0
--- OUTSIDE RECORDS SUMMARY | 2024-02-04 14:56 | XMS_ITS | Patient Health Record ---
Author Organization [facility], [facility] Address [address] [place] [address] [phone] Support Name Relationship Address Phone JAVIER REYNOLDS [...] Coverage End Date [facility] [address] [place] [address] [id number] JAVIER REYNOLDS Self - patient is the insured
[2024-02-04 15:00] VITALS: BMI 28.7
== END 2024-02-04 15:18 | disposition home or self-care (01) ==
LOC: HO.HGI 14:55
PROVIDERS: Visit Provider Internal Medicine
DX: K29.40 Chronic atrophic gastritis without bleeding (principal); R19.4 Change in bowel habit; R14.0 Abdominal distension (gaseous)
CPT/HCPCS: 99214; G2211

== ENCOUNTER → 2024-02-04 14:55 | Outpatient (BNVA) | payer OTHER, SELFPAY | PROVIDERS: Visit Provider Internal Medicine | DX: K29.40 Chronic atrophic gastritis without bleeding (principal); R19.4 Change in bowel habit; R14.0 Abdominal distension (gaseous) | CPT/HCPCS: 99212 ==

== ENCOUNTER 2024-02-20 15:43 | Outpatient (AMB) | payer OTHER, SELFPAY ==
--- OUTSIDE RECORDS SUMMARY | 2024-02-20 15:45 | XMS_ITS | Patient Health Record ---
Author Organization [facility], [facility] Address [address] [place] [address] [phone] Support Name Relationship Address Phone JAVIER REYNOLDS [...] Insured Coverage Start Date Coverage End Date [facility] [address] [place] [address] [id number] JAVIER REYNOLDS Self - patient is the insured
--- NOTE | 2024-02-20 15:49 | HO.SPINEOV ---
Intake Visit Reasons: EMG f/u reschedule from 02/10 Intake Note: Ms. Pandya is here today to F/u on the results to her EMG. Articulation Officer Required: No Allergies erythromycin base [ERYTHROMYCIN BASE] Allergy (Unknown, Verified 02/04/24 15:02) UNKNOWN latex [LATEX] Allergy (Unknown, Verified 02/04/24 15:02) UNKNOWN acetaminophen [From Tylenol] Adverse Reaction (Verified 02/04/24 15:02) Unknown Adhesive tape Allergy (Unknown, Uncoded 02/04/24 15:02) Unknown Erthromycin Allergy (Unknown, Uncoded 02/04/24 15:02) Unknown Latex Allergy (Unknown, Uncoded 02/04/24 15:02) Unknown plaquenol Adverse Reaction (Intermediate, Uncoded 02/04/24 15:02) Vomiting Assessment & Plan Assessment & Plan (1) Elbow pain: Code(s): M25.529 - Pain in unspecified elbow Category: Medical Plan Marie comes in today to discuss her previous EMG at [facility] and worsening right upper extremity symptoms. She reports that her right upper extremity has diffuse pain, worse in the right elbow and right wrist. She does have a history of right-sided carpal tunnel release, which he found was helpful back in 2019 when it was done. About a year later she had return of symptoms. Unfortunately now she feels as though the numbness and tingling in her right hand continues to worsen as the weeks progress. She states that her right elbow is by far the worst. She feels hyperesthesia in her right elbow with pain to even light touch. She feels shooting pains down from elbow to her hand. She also has diffuse tingling throughout her forearm. (+) right-sided Tinel's at elbow. (+) right-sided Tinel's at wrist. (+) right-sided Phalen's. I would like to order the patient a EMG of her right upper extremity to include/rule out cubital tunnel impingement and brachial plexus impingement. I will call her with the results with this is done. Bradford Boykin MD,PhD [facility] Orders: Orders NE electromyogram (EMG) Today M25.529 - Pain in unspecified elbow Coding Level of Care Code Est Pt Level 3 (87989) Diagnoses Elbow pain M25.529
== END 2024-02-20 16:08 | disposition home or self-care (01) ==
PROVIDERS: Visit Provider Physician Assistant
DX: M25.529 Pain in unspecified elbow (principal)
CPT/HCPCS: 99213

== ENCOUNTER → 2024-02-20 15:43 | Outpatient (BNVA) | payer OTHER, SELFPAY | PROVIDERS: Visit Provider Physician Assistant | DX: M25.521 Pain in right elbow (principal) | CPT/HCPCS: 99212 ==

== ENCOUNTER 2024-02-22 10:19 | Outpatient (AMB) | payer OTHER, SELFPAY ==
--- NOTE | 2024-02-22 10:23 | A.OFFVIS_ITS ---
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 Accompanied by: Self / Same As Patient Allergies erythromycin base [ERYTHROMYCIN BASE] Allergy (Unknown, Verified 02/04/24 15:02) UNKNOWN latex [LATEX] Allergy (Unknown, Verified 02/04/24 15:02) UNKNOWN acetaminophen [From Tylenol] Adverse Reaction (Verified 02/04/24 15:02) Unknown Adhesive tape Allergy (Unknown, Uncoded 02/04/24 15:02) Unknown Erthromycin Allergy (Unknown, Uncoded 02/04/24 15:02) Unknown Latex Allergy (Unknown, Uncoded 02/04/24 15:02) Unknown plaquenol Adverse Reaction (Intermediate, Uncoded 02/04/24 15:02) Vomiting Medication List - Last Reconciled 02/22/24 by Kt Randolph MD colchicine (Mitigare) 0.6 mg PO DAILY dextroamphetamine-amphetamine 10 mg 20 mg PO DAILY dextroamphetamine-amphetamine 10 mg 10 mg PO DAILY@1200 PRN diazepam 5 mg PO TID PRN dicyclomine 10 mg PO BID PRN 90 days duloxetine 60 mg PO DAILY duloxetine 30 mg PO DAILY famotidine 20 mg PO BID folic acid 1 mg PO DAILY gabapentin 800 mg PO TID glucosamine-chondroitin 250-200 mg (Osteo Bi-Flex) 2 tabs PO TID Magic Mouthwash Diphen/Lido/Antacid 1:1:1 240 mL orally; Lidocaine Viscous 2 % 80mL; diphenhydramine 12.5 mg/5 mL 80mL; aluminum-mag hydrox-simeth [id number]/5mL 80mL Swish, gargle and split 5 mL every 4-6 hours as needed. methotrexate sodium 12.5 mg (0.5 mL) subcut QWEEK mupirocin 2% 1 appl topical BID PRN neomycin-polymyxin B-dexameth 3.5mg/mL-10,000 unit/mL-0.1 % 1 drp ophthalmic (eye) Q12H ondansetron 4 mg PO Q8H PRN oxycodone 10 mg (2 x 5 mg) PO Q6H PRN prucalopride (Motegrity) 1 mg PO DAILY 90 days syringe with needle, safety (Monoject TB Safety Syringe) As directed use weekly with methotrexate. Schedule methotrexate injection teaching [place] [facility] [place] tizanidine 2 mg PO Q8H PRN turmeric mg PO HPI Comments Details: [age] year female who is here for 1st office visit. 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 She also has hypermobile joints and Kings-Danlos syndrome. She has multiple joints dislocations and walks without a walker mostly. She previously underwent Holter monitoring and stress test in the past. She has noticed that her heart rate is slow and when she is sleeping the heart rate was as low as 29 on her Apple watch. She has dizziness and lightheadedness when she stands up. She also has noticed that her heart rate goes up to 130s when she is going upstairs or when she stands up at times. She has persistent diarrhea and nausea/vomiting ongoing for 6 months. She has been following with Gastroenterology for that. She tries to hydrate herself with water and electrolytes. She has significant abdominal pain. She also has back pain and he is currently taking Percocet. She is also on medications for ADHD and takes dextroamphetamine-amphetamine. She is saying she has been taking that for years. She also has some issues with orthopnea like episodes that when she tries to lay down she gets out of breath. She has to sit up. She denies any snoring. Quite complex issues. 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] Personal history of malignant melanoma of skin Muscle spasm of back Chronic pain syndrome Generalized anxiety disorder Major depressive disorder, single episode, in full remission Surgical History Hx laparoscopic cholecystectomy (10/22/23) Hx of tonsillectomy History of appendectomy Social History Household Members: Spouse and Family Housing: House Are you a primary primary care sales representative to a significant other at home: No Do you presently have visiting nurse or other home services: No Alcohol intake: current Alcohol intake frequency: holidays/special occasions only Patient Tobacco Use Status: Former Tobacco user Tobacco use type: Cigarette e-Cigarette/Vaping Use: Currently Using Second Hand Smoke Exposure: No Substance Use Type: Other and Caffiene Advance Directives Date on File: 10/29/23 service: No Review of Systems Const Denies chills, Denies fatigue, Denies fever(s), Denies frequent falls, Denies weakness, Denies weight gain and Denies weight loss ENT Denies dizziness Card Denies chest pain, Denies leg edema, Denies lightheadedness, Denies palpitations, Denies dyspnea and Denies dyspnea on exertion Resp Denies cough, Denies dyspnea and Denies dyspnea on exertion GI Denies hematochezia Musc Denies abnormal gait, Denies muscle weakness, Denies numbness, Denies radiating pain into limb and Denies tingling Neuro Denies abnormal gait, Denies dizziness, Denies frequent falls, Denies numbness, Denies tingling and Denies weakness Endo Denies fatigue and Denies palpitations Physical Exam Vital Signs: Last Vital Signs Pulse 74 02/22/24 10:24 BP 90/62 02/22/24 10:24 BMI result Body Mass Index 28.7 GENERAL APPEARANCE: in no acute distress, pleasant. NECK: no carotid bruit, no jugular venous distention. SKIN: no suspicious lesions, warm and dry. HEART: no murmurs, regular rate and rhythm. LUNGS: clear to auscultation bilaterally. ABDOMEN: soft, nontender. EXTREMITIES: no edema. PERIPHERAL PULSES: equal. NEUROLOGIC: No gross deficits, AAO X 3 Office Procedures EKG Details: Sinus rhythm 74 beats per minute, normal axis, normal ECG, QTC 439 milliseconds. [id number], Complete Assessment & Plan Assessment & Plan (1) Tachycardia: Code(s): R00.0 - Tachycardia, unspecified Category: Medical (2) Dizziness: Code(s): R42 - Dizziness and giddiness Category: Medical Plan [age] year female with multiple complaints on background of Behcet's disease. She has diarrhea abdominal pain and vomiting ongoing for 6 months. She also has postural intolerance and gets dizziness and tachycardia when she stands up. She also has some bradycardic episodes and previously had workup done for that. I have reassured her about the heart rate being slow in her sleep which is normal. Autonomic issues can happen in patients with hypermobile joints/Kings-Danlos syndrome. I think the 1st issue is that she has significant fluid loss with diarrhea vomiting and it is hard to say whether she has been able to hydrate herself completely. I have advised her to continue the hydration as she is doing. She will sprinkled some salt on her food to so she can retain some of the fluids. I will arrange Holter monitor to rule out any arrhythmia and we will do echocardiogram to rule out any structural heart issues. I am also referring her for a tilt-table test to see her hemodynamics when she is in upright posture. She may need further workup with Neurology at [facility] because they do have neurologist working in autonomic dysfunction. I think currently we have limited information to call this autonomic dysfunction/POTS. Thank you for allowing me to participate in the care of your patient. Please feel free to contact me if you have any questions. Orders: Orders ECG 7 day holter monitor Today R00.0 - Tachycardia, unspecified CA echo transthoracic complete Today R00.0 - Tachycardia, unspecified ECG Tilt Table Test Today R42 - Dizziness and giddiness Coding Level of Care Code New Pt Level 5 (17272) Diagnoses Tachycardia R00.0 Dizziness R42 CPT Codes EKG - CPT: 03073-[id number], Complete ([id number])
[2024-02-22 10:24] VITALS: BP 90/62; PULSE 74; BMI 28.7
--- OUTSIDE RECORDS SUMMARY | 2024-02-22 10:36 | XMS_ITS | Patient Health Record ---
Author Organization [facility], [facility] Address [address] [place] [phone] Support Name Relationship Address Phone JAVIER REYNOLDS [...] Insured Coverage Start Date Coverage End Date [facility] [address] [place] [address] [id number] JAVIER REYNOLDS Self - patient is the insured
== END 2024-02-22 11:23 | disposition home or self-care (01) ==
PROVIDERS: Visit Provider Internal Medicine Cardiovascular Disease
DX: R00.0 Tachycardia, unspecified (principal); R42 Dizziness and giddiness
CPT/HCPCS: 93010; 99204

== ENCOUNTER 2024-02-22 15:43 | Outpatient (REF) | payer OTHER, SELFPAY ==
--- NOTE | 2024-02-22 15:45 | EMG_ITS ---
Chief complaint: Right shoulder pain, elbow pain, hand numbness. History of right CTR. Previous EMG done at [facility] but not available for my review. Reason for referral: Evaluate for ulnar neuropathy Referred by: Bradford GUPTA Procedure done: Right upper extremity NCS/EMG Precautions and/or limitations: None The limb temperature was monitored continuously and remained between 32-36 degrees C during the performance of the NCS. Nerve Conduction Studies Anti Sensory Summary Table ?Stim Site NR Onset (ms) Norm Onset (ms) Peak (ms) Norm Peak (ms) O-P Amp (?V) Norm O-P Amp Site1 Site2 Delta-0 (ms) Dist (cm) Dario (m/s) Norm Dario (m/s) Right Median Anti Sensory (2nd Digit) Wrist ? 3.1 4.0 <3.6 27.4 >10 Wrist 2nd Digit 3.1 14.0 45 Right Radial Anti Sensory (Thumb) Forearm ? 1.3 2.0 <3.1 21.8 Forearm Thumb 1.3 0.0 Right Ulnar Anti Sensory (5th Digit) Wrist ? 2.1 3.0 <3.7 28.5 >15.0 Wrist 5th Digit 2.1 14.0 67 Motor Summary Table ?Stim Site NR Onset (ms) Norm Onset (ms) O-P Amp (mV) Norm O-P Amp iAmp (mV) Amp (1st) (%) Site1 Site2 Delta-0 (ms) Dist (cm) Dario (m/s) Norm Dario (m/s) Right Median Motor (Abd Poll Brev) Wrist ? 4.8 <3.9 7.3 >4.5 8.1 100.0 Elbow Wrist 3.9 20.5 53 >45 Elbow ? 8.7 7.0 7.9 95.9 Right Ulnar Motor (Abd Dig Minimi) Wrist ? 2.7 <3.0 7.8 >5 9.5 100.0 B Elbow Wrist 3.4 19.0 56 >45 B Elbow ? 6.1 7.9 9.8 101.3 A Elbow B Elbow 1.3 10.0 77 >45 A Elbow ? 7.4 7.9 9.8 101.3 EMG ?Side Muscle Nerve Root Ins Act Fibs Psw Amp Dur Poly Recrt Int Pat Comment Right 1stDorInt Ulnar C8-T1 Nml Nml Nml Nml Nml 0 Nml Complete Right FlexCarRad Median C6-7 Nml Nml Nml Nml Nml 0 Nml Complete Right Biceps Musculocut C5-6 Nml Nml Nml Nml Nml 0 Nml Complete Right Triceps Radial C6-7-8 Nml Nml Nml Nml Nml 0 Nml Complete Right Deltoid Axillary C5-6 Nml Nml Nml Nml Nml 0 Nml Complete Paraspinal EMG ?Side Muscle Nerve Root Ins Act Fibs Psw Comment Right Cervical Upper Rami Nml Nml Nml Right Cervical Mid Rami Nml Nml Nml Right Cervical Lower Rami Nml Nml Nml FINDINGS: Right median motor nerve showed prolonged distal latency, normal amplitude and normal conduction velocity. Right median sensory nerve showed prolonged peak latency. All other nerves tested were within normal. Concentric needle EMG was performed in selected muscles of the right upper extremity and cervical paraspinals. Study did not reveal signs of electric abnormalities as shown in the table above. IMPRESSION: 1. This is an abnormal study. 2. There is electrodiagnostic evidence for right moderate-severe median neuropathy at the wrist, consistent with carpal tunnel syndrome. 3. There is no electrodiagnostic evidence for ulnar neuropathy, brachial plexopathy, or cervical radiculopathy. Thank you for your kind referral. Betty Hermosillo MD, ESVIN Board Certified, [place] Board [employer] and Rehabilitation (ABPMR) Board Certified, [place] Board of Electrodiagnostic Medicine (ABEM) CODIN [id number] MTDD
== END 2024-02-22 15:44 | disposition home or self-care (01) ==
LOC: HO.NEURO 15:43
PROVIDERS: Visit Provider Physician Assistant
DX: M25.521 Pain in right elbow (principal); R00.0 Tachycardia, unspecified; R42 Dizziness and giddiness
CPT/HCPCS: 95886; 95909

== ENCOUNTER → 2024-02-22 15:45 | Outpatient (BNV) | payer OTHER, SELFPAY | PROVIDERS: Visit Provider Physical Medicine & Rehabilitation | DX: G56.01 Carpal tunnel syndrome, right upper limb (principal) | CPT/HCPCS: 95886; 95909 ==

== ENCOUNTER → 2024-02-27 11:02 | Outpatient (BNVA) | payer OTHER, SELFPAY | PROVIDERS: Visit Provider Student in an Organized Health Care Education/Training Program ==

== ENCOUNTER 2024-03-04 08:38 | Outpatient (AMB) | payer OTHER, SELFPAY ==
[2024-03-04 08:40] VITALS: BP 94/60; PULSE 69; O2SAT 98; BMI 27.7
--- NOTE | 2024-03-04 08:40 | A.OFFVIS_ITS ---
Vital Signs 03/04/24 08:40 Height 5 ft 3 in Weight 156 lb 2 oz BMI 27.7 BP 94/60 Blood Pressure Location Lt brachial Position Sitting Pulse 69 Pulse Source Pulse Oximeter Pulse Oximetry (%) 98 Oxygen Delivery Method Room Air Intake Visit Reasons: Follow up 2mo Intake Note: Patient presents for follow up on joint pain and pain in both kidneys, the pain has not gone away. Allergies erythromycin base [ERYTHROMYCIN BASE] Allergy (Unknown, Verified 03/04/24 08:45) UNKNOWN latex [LATEX] Allergy (Unknown, Verified 03/04/24 08:45) UNKNOWN acetaminophen [From Tylenol] Adverse Reaction (Verified 03/04/24 08:45) Unknown Adhesive tape Allergy (Unknown, Uncoded 03/04/24 08:45) Unknown Erthromycin Allergy (Unknown, Uncoded 03/04/24 08:45) Unknown Latex Allergy (Unknown, Uncoded 03/04/24 08:45) Unknown plaquenol Adverse Reaction (Intermediate, Uncoded 03/04/24 08:45) Vomiting HPI HPI Follow up 2mo: Details: She has revealed to me that she has been found to have MTHFR gene mutation in the past. She is experiencing acute on chronic migraines, nausea, vomiting, diarrhea and increased fatigue after taking methotrexate last Sunday. She took methotrexate today. She was in bed all weekend. She is also taking methylated folic 2 mg daily. She has children at home that she was unable to care for over the weekend but during the week they are in school. She continues to have pain in her joints throughout her body. She has noted swelling in her hands and her knees. She uses a walker to ambulate. She has had frequent falls. She saw Ophthalmology who recommended that patient see a neurologist for discoordination. Patient needs neurologist locally as she was unable to go to her appointments at [facility] in [place] and was discharged from practice due to multiple no shows. At the time she did not have a consistent ride. Since antibiotic treatment for UTI (she required IV antibiotics inpatient and was discharged with regimen) she has reduced dysuria but still experiences suprapubic pain and mid low back pain with urination. She continues to have urinary frequency. Urine is no longer foul-smelling. She denies fevers and chills. She has had multiple ER visits. She has no PCP. Off of colchicine diarrhea improved but oral ulceration increased. She resumed colchicine 0.6 mg b.i.d. with benefit. 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] Personal history of malignant melanoma of skin Muscle spasm of back Chronic pain syndrome Generalized anxiety disorder Major depressive disorder, single episode, in full remission Surgical History Hx laparoscopic cholecystectomy (10/22/23) Hx of tonsillectomy History of appendectomy Social History Household Members: Spouse and Family Housing: House Are you a primary home care associate to a significant other at home: No Do you presently have visiting nurse or other home services: No Alcohol intake: current Alcohol intake frequency: holidays/special occasions only Patient Tobacco Use Status: Former Tobacco user Tobacco use type: Cigarette e-Cigarette/Vaping Use: Currently Using Second Hand Smoke Exposure: No Substance Use Type: Other and Caffiene Advance Directives Date on File: 10/29/23 service: No Review of Systems Const All systems reviewed & are unremarkable except as noted in HPI and below Physical Exam Vital Signs: Last Vital Signs Pulse 69 03/04/24 08:40 BP 94/60 03/04/24 08:40 Pulse Ox 98 03/04/24 08:40 Oxygen Delivery Method Room Air 03/04/24 08:40 BMI result Body Mass Index 27.7 GENERAL APPEARANCE: in no acute distress, pleasant. NECK: no carotid bruit, no jugular venous distention. SKIN: no suspicious lesions, warm and dry. HEART: no murmurs, regular rate and rhythm. LUNGS: clear to auscultation bilaterally. ABDOMEN: soft, nontender. EXTREMITIES: no edema. PERIPHERAL PULSES: equal. NEUROLOGIC: No gross deficits, AAO X 3 Const Other: General: Comfortable CVS: RRR Respiratory: clear to auscultation bilaterally. Good respiratory effort Oral: lower lip apthus ulcers present MSK: tenderness of PIP bilaterally in hands. No synovitis. She is unable to abduct shoulders over 160 degrees bilaterally. Limited shoulder external rotation internal rotation due to pain. Diffuse allodynia. Patient ambulates with walker. abnormal gait. Assessment & Plan Assessment & Plan (1) Dysuria: Comment: Recurrent suspected Code(s): R30.0 - Dysuria Category: Medical Plan: UA and UC ordered (2) Behcet disease with multisystem involvement: Comment: history of Behcet's syndrome with positive pathergy test, recurrent ulcerations and polyarthalgias. She has failed treatment with colchicine 0.6mg BID in controlling oral ulcers. She continues to have skin lesions and requires topical steroid to treat dry eyes prescribed from Dr. Michel (12/26/2023 note). she did not tolerate hydroxychloroquine due to vomiting started by Ophthalmology for dry eye syndrome (status post punctate plugs, topical prednisone). Diarrhea and vomiting are uncontrolled, especially after starting MTX SC. Colchicine is contributing to diarrhea, which is why I asked her to discontinue it but she resumed it due to worsening oral ulcers. She has had benefit with magic mouthwash. Her Polyarthalgias are uncontrolled. She informed me this visit that she has MTHFR mutation and therefore should not be on methotrexate due to increase risk of toxicity, which she experienced. We discussed medical management with DMARD therapy Otezla, which is indicated for Behcet's syndrome to treat recurrent oral ulcers, skin lesions and joint pain. We discussed side effects, benefits and drug monitoring. Code(s): M35.2 - Behcet's disease Category: Medical Plan: Labs ordered for baseline prior to starting Otezla Discontinue MTX Ondansetron 4 mg every 4-6 hours as needed for nausea and vomiting. She is being worked up by GI and has an upcoming scan. Continue colchicine 0.6 mg twice a day Change NSAID to Celebrex 200mg twice a day Continue magic mouthwash every 4-6 hours as We had a discussion about her establishing with PCP. She has called many PCP's office is but has been unsuccessful in obtaining an appointment. Discussed case with executive officer. Patient needs to call her insurance to change PCP. Patient was referred to uveitis specialist by appliance painter and refinisher Dr. Michel. I am requesting clinical notes of uveitis specialist and Dr. Michel after 01/02/2024 Return to clinic in 3 months (3) Migraine headache: Comment: Chronic. Exacerbated since being on methotrexate. She has discoordination, gait instability, frequent falls, symptoms of neuropathy in lower extremities with negative EMG for significant finding and prior brain imaging unrevealing. I was unable to locate recent brain MRI in [facility]'s EMR CIS. She has benefit on gabapentin in helping to control neuropathy. She denies any side effects from gabapentin. Code(s): G43.909 - Migraine, unspecified, not intractable, without status migrainosus Category: Medical Qualifiers: Intractability: intractable Migraine type: unspecified Status migrainosus presence: without status migrainosus Qualified Code(s): G43.919 - Migraine, unspecified, intractable, without status migrainosus Plan: Requesting neurological consultation for evaluation and management of her neurological symptoms Discontinue methotrexate Increase gabapentin to 900 mg t.i.d. Requesting brain MRI report (4) Hematuria: Comment: On recent urinalysis. Urine culture has been negative so far. She was treated for UTI 01/2024 presenting with dysuria, urinary frequency, abdominal pain and mid back pain with resolution of urinary frequency and foul-smelling urine after antibiotic treatment, which consisted of IV antibiotics in the ER. She continues to have dysuria, suprapubic pain and mid back pain. I am requesting urgent urology evaluation for further workup to prevent recurrent ER visits. She has uncontrolled pain and is unable to sit for prolonged periods of time. She requested palliative consultation for pain control as her quality of life is very limited with all of her symptoms. I recommended that at this time it is best for her to get further workup to determine if there is a specific cause for her symptoms that is treatable. 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) use of unspecified immunomodulators and immunosuppressants UA w Microscopic 03/04/24 R30.0 - Dysuria Urine Culture 03/04/24 R30.0 - Dysuria XR knee RT 2V 03/04/24 M35.2 - Behcet's disease Alanine Aminotransferase 03/04/24 Z79.60 - care home (current) use of unspecified immunomodulators and immunosuppressants Creatinine 03/04/24 Z79.60 - 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 200 mg PO BID 60 caps 2RF Discontinued methotrexate sodium Schedule methotrexate injection teaching visit for first dose at [facility] [place] Rhe[place]ology office Discontinued Reason: Duplicate 12.5 mg (0.5 mL) subcut QWEEK 2 mL 0RF syringe with needle, safety (Monoject TB Safety Syringe) Discontinued Reason: Doctor's Order As directed use weekly with methotrexate. Schedule methotrexate injection teaching visit for first dose at [facility] [place] Rheumatology office 100 ea 0RF Coding Level of Care Code Est Pt Level 5 (78090) Complex EM visit Add On G2211 Diagnoses Dysuria R30.0 Behcet disease with multisystem involvement M35.2 Intractable migraine without status migrainosus, unspecified migraine type G43.919 Intractability: intractable Migraine type: unspecified Status migrainosus presence: without status migrainosus Hematuria, unspecified type R31.9 Hematuria type: unspecified type Time Spent (min) 80 Comment [id number] time, reviewing labs/imaging/consultation notes, coordinating care
== END 2024-03-04 09:28 | disposition home or self-care (01) ==
LOC: HO.RHES 08:38
PROVIDERS: Visit Provider Internal Medicine Rheumatology
DX: R30.0 Dysuria (principal); M35.2 Behcet's disease; G43.919 Migraine, unspecified, intractable, without status migrainosus; R31.9 Hematuria, unspecified
CPT/HCPCS: 99215; 99417; G2211

== ENCOUNTER 2024-03-04 08:38 | Outpatient (REF) | payer OTHER, SELFPAY ==
--- OUTSIDE RECORDS SUMMARY | 2024-03-04 10:30 | XMS_ITS | Clinical Summary ---
Author Organization [address] Address [address] [place] [phone] Phone Care Team Providers Care Bowling Ball Marker Name Role Phone Genesis Davis MD Primary Care Provider Allergies Active Allergy Reactions Criticality Noted Date Comments Adhesive Tape-Silicones Rash 05/04/2011 localized Erythromycin Rash 01/18/2006 Iodinated Contrast Media 09/20/2018 Latex Rash 07/04/2016 Localized;Pt reports latex sensitivity, gets rash with use Other 11/12/2018 Other (No Interaction Warnings)-Blood product alert: patient with IgA deficiency Medications Medication Sig Dispensed Refills Start Date End Date Status LORazepam (ATIVAN) 1 mg tablet Take 1 tablet (1 mg total) by mouth. 10/14/2019 Active DULoxetine (Drizalma Sprinkle) 30 mg capsule, delayed rel sprinkle Take by mouth 1 (one) time each day. Active DULoxetine (CYMBALTA) [address] capsule Take 1 capsule (60 mg total) by mouth 1 (one) time each day. Active busPIRone (BUSPAR) 15 mg tablet Take 1 tablet (15 mg total) by mouth 3 (three) times a day. Active amphetamine-dextroamph etamine (ADDERALL) 10 mg tablet Take 1 tablet (10 mg total) by mouth 2 (two) times a day. Active dextroamphetamine/amph etamine (ADDERALL ORAL) Take 5 mg by mouth daily as needed. Active gabapentin (NEURONTIN) 600 mg tablet Take 1 tablet (600 mg total) by mouth 3 (three) times a day. Active baclofen (LIORESAL) 10 mg tablet Take 1 tablet (10 mg total) by mouth 3 (three) times a day. Active naproxen (NAPROSYN) 500 mg tablet Take 1 tablet (500 mg total) by mouth 2 (two) times a day with meals. Active colchicine (COLCRYS) 0.6 mg tablet Take 1 tablet (0.6 mg total) by mouth 1 (one) time each day. Active METHYLPREDNISOLONE ORAL Take by mouth. 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 Biopsies Abdominal ultrasound 03/31/17 wnl Asthma 09/24/2013 Encounters Date Type Department Care Team Description 01/03/2024 1:30 PM EST - 01/03/2024 11:59 PM [facility] Hospital Encounter [facility] Nuclear Medicine [address] [place] [phone] Discharge Disposition: Home or Self Care 01/03/2024 10:00 AM EST - 01/03/2024 11:59 PM [facility] Hospital Encounter [facility] Nuclear Medicine [address] [place] [phone] Spondylosis without myelopathy or radiculopathy, thoracic region; Low back pain, unspecified; Wedge compression fracture of unspecified thoracic vertebra, sequela Discharge Disposition: Home or Self Care from Last 3 Months Immunizations Name Administration Dates Next Due Tdap Tetanus diptheria acell ular pertussis (Boostrix; Adacel) 7yo and older 10/13/2015 Surgical History Surgery Date Site/Laterality Comments TONSILLECTOMY PROCEDURE: HISTORICAL TONSILLECTOMY OTHER SURGICAL HISTORY PROCEDURE: REMOVAL OF TMJ CONDYLE APPENDECTOMY PROCEDURE: HISTORICAL APPENDECTOMY ESOPHAGOGASTRODUODENOSCOPY 03/29/15 PROCEDURE: NE EGD TRANSORAL BIOPSY SINGLE/MULTIPLE; COMMENT: mild distal esophagitis, antritis and duodenitis. bxs of all - bx all negative ADENOIDECTOMY PROCEDURE: HISTORICAL ADENOIDECTOMY Medical History Medical History Date Comments History of migraine DX:History o f migraine Obesity DX:Obesity Family history of hyperthyroidism 01/20/2019 DX:Family history of hyperthyroidism Family History Medical History Relation Name Comments Melanoma Aunt maternal Squamous cell carcinoma Aunt maternal No Known Problems Father no contact Alzheimer's disease Maternal Grandfather Diabetes Maternal Grandfather Hyperlipidemia Maternal Grandfather Hypertension Maternal Grandfather Prostate cancer Maternal Grandfather Basal cell carcinoma Maternal Grandmother Heart attack Maternal Grandmother other a ssociated heart issues Hypertension Mother Other: autoimmune disorders Mother Other: graves disease Mother Melanoma Other cousin No Known Problems Paternal Grandfather No Known Problems Paternal Grandmother di abetes and cancer- she is doing research about this Relation Name Status Comments Aunt maternal Alive Father Other Maternal Grandfather Maternal Grandmother Alive Mother Alive Other cousin Alive Paternal Grandfather Other Paternal Grandmother Other Social History Tobacco Use Types Packs/Day Years Used Date Smoking Tobacco: Former Cigarettes Q uit: 03/15/2016 Smokeless Tobacco: Never Alcohol Use Standard Drinks/Week Comments No 0 (1 standard drink = 0.6 oz pur e alcohol) Sex and Gender Information Value Date Recorded Sex Assigned at Not on file Gender Identity Not on file Sexual Orientation Not on file Job Start Date Occupation Industry Not on file Not on file Not on file Obstetrics History Last Filed Vital Signs Vital Sign Reading Time Taken Comments Blood Pressure 124/78 09/07/2023 3:45 PM EDT Pulse 82 09/07/2023 3:45 PM EDT Temperature - - Respiratory Rate - - Oxygen Saturation - - Inhaled Oxygen Concentration - - Weight 86.6 kg (191 lb) 09/07/2023 3:45 PM EDT Height 162.6 cm (5' 4 ) 09/07/2023 3:45 PM EDT Body Mass Index 32.79 09/07/2023 3:45 PM EDT Plan of Treatment Upcoming Encounters Date Type Department Care Team (Late st Contact Info) Description 04/15/2024 1:45 PM EST Appointment [facility] Xray [address] [place] [phone] Health Maintenance Due Date Last Done Comments COVID-19 Vaccine (#1) 1994 Pneumococcal Vaccine: Pediatrics (0 to 5 Years) and At-Risk Patients (6 to 64 Years) (1 of 2 - PCV) 1995 Hepatitis B Vaccines (1 of 3 - 19+ 3-dose series) 01/07/2008 Cervical Cancer Screening: P ap Smear 06/13/2020 06/13/2017, 06/13/2017, 06/13/2017 Depression Screening 01/14/2022 Hepatitis C Screening 01/14/2022 Social Influencers of Health Screening 01/14/2022 Cholesterol Screening (Lipid Panel) 04/19/2023 04/18/2018 Influenza Vaccine (#1) 2023 DTaP,Tdap,and Td Vaccines (2 - Td or Tdap) 10/12/2025 10/13/2015 HIV Screening Completed 06/14/2017 HIB Vaccines Aged Out No longer eligi ble based on patient's age to complete this topic HPV Vaccines Aged Out No longer eligi ble based on patient's age to complete this topic Hepatitis A Vaccines Aged Out No long er eligible based on patient's age to complete this topic IPV Vaccines Aged Out No longer eligi ble based on patient's age to complete this topic MMR Vaccines Aged Out No longer eligi ble based on patient's age to complete this topic Meningococcal ACWY Vaccine Aged Out N o longer eligible based on patient's age to complete this topic RSV Immunization Patients Under 20 months Aged Out No longer eligible b ased on patient's age to complete this topic Varicella Vaccines Aged Out No longer eligible based on patient's age to complete this topic Procedures Procedure Name Priority Date/Time Associated Diagnosis Comments NM BONE/JOINT SCAN SPECT Routine 01/03/2024 4:00 PM EST Spondylosis without myelopathy or radiculopathy, thoracic region Low back pain, unspecified Wedge compression fracture of unspecified thoracic vertebra, sequela LIPID PANEL Routine 04/18/2018 HM HIV SCREENING Routine 06/14/2017 PAP SMEAR Routine 06/13/2017 from Last 3 Months or Most Recently Relevant to Health Maintenance Results * NM Bone/Joint Scan Spect (01/03/2024 4:00 PM EST) Anatomical Region Laterality Modality Nuclear Medicine 01/03/2024 3:58 PM EST Impressions 01/03/2024 4:06 PM EST Focal increased activity corresponding to left T9-10 facet joint most likely represents a source for patient's back pain. Findings not consistent with active compression fracture. -------- FINAL REPORT -------- Dictated By: Santy Devries Dictated Date: 01/03/2024 15:58 ET Assigned Physician: Santy Devries Reviewed and Electronically Signed By: Santy Devries Signed Date: 01/03/2024 16:06 ET Workstation ID: [id number] Transcribed By: Self Edit Transcribed Date: 01/03/2024 15:58 ET Narrative 01/03/2024 4:06 PM EST EXAM PERFORMED: Bone SPECT REASON FOR EXAM: [id number] spondylosis without myelopathy or radiculopathy in the thoracic region, low back pain COMPARISON: Correlation made with prior thoracic MRI from June 07, 2022 ??corresponding to the same anatomical region in question. RADIOISOTOPE: 22.9 mCi of Tc99m MDP TECHNIQUE: SPECT imaging of the thoracolumbar region was performed about 2 hours after administration of Tc 99m MDP FINDINGS: Focal significantly increased activity noted towards the left side corresponding to the left T9/10 facet joint. Minimally increased activity noted towards the right T9/T10 facet joint. Mild increased activity anteriorly and towards the right centered at the T8 level and lesser degree at the T9 level corresponding to mild bony sclerosis and adjacent osteophytosis. Procedure Note Santy Devries MD - 01/03/2024 EXAM PERFORMED: Bone SPECT REASON FOR EXAM: [id number] spondylosis without myelopathy or radiculopathyin the thoracic region, low back pain COMPARISON: Correlation made with prior thoracic MRI from June 07orresponding to the same anatomical region in question. RADIOISOTOPE: 22.9 mCi of Tc99m MDP TECHNIQUE: SPECT imaging of the thoracolumbar region was performed about 2hours after administration of Tc 99m MDP FINDINGS: Focal significantly increased activity noted towards the leftside corresponding to the left T9/10 facet joint. Minimally increasedactivity noted towards the right T9/T10 facet joint. Mild increased activity anteriorly and towards the right centered at theT8 level and lesser degree at the T9 level corresponding to mild bonysclerosis and adjacent osteophytosis. IMPRESSION: Focal increased activity corresponding to left T9-10 facet joint mostlikely represents a source for patient's back pain. Findings notconsistent with active compression fracture. -------- FINAL REPORT -------- Dictated By: Santy Devries Dictated Date: 01/03/2024 15:58 ET Assigned Physician: Santy Devries Reviewed and Electronically Signed By: Santy Devries Signed Date: 01/03/2024 16:06 ET Workstation ID: [id number] Transcribed By: Self Edit Transcribed Date: 01/03/2024 15:58 ET Narayan Ernst MD IMG NM PROCEDURES * (ABNORMAL) Lipid panel (04/18/2018) Pathologist [facility] LDL/HDL Ratio 4 0 - 4 Triglycerides 97 0 - 150 mg/dL Cholesterol 179 0 - 200 mg/dL HDL 42 40 mg/dL LDL Cholesterol 118(A) 0 - 100 mg/dL Blood Venous blood specimen / Unknown Historical Provider LAB BLOOD ORDERAB LES * Hm HIV Screening (06/14/2017) Pathologist [facility] HIV Screening abstracted Historical Provider [facility] * Pap smear (06/13/2017) 06/13/2017 Narrative HISTORICAL TESTING LAB RESULTING AGENCY - 06/20/2017 4:55 PM EDT [id number] THINPREP PAP, IMAGED AND CELL BLOCK: NEGATIVE FOR SQUAMOUS INTRAEPITHELIAL LESION AND MALIGNANCY ??. PARTIALLY OBSCURING LUBRICANT IS PRESENT. BORDERLINE/LIMITED SQUAMOUS CELLULARITY. LYNDA SNYDER, ELIZABETH(ASCP) (CASE SCREENED 06 18 2017) BROOKLYN MANSFIELD M.D., PATHOLOGIST (CASE ELECTRONICALLY SIGNED 06 19 2017) ADEQUACY: SATISFACTORY. ENDOCERVICAL/TRANSFORMATION ZONE COMPONENT PRESENT. SOURCE: THINPREP PAP HPV IF ASCUS, CERVICAL, IMAGED: CLINICAL INFORMATION: HPV IF DIAGNOSIS OF ASCUS. Z12.4, Z34.81, PAP HX: NEGATIVE 06/09/2017, [place] CNM LAB CYTOLOG Y ORDERABLES HISTORICAL TESTING LAB RESULTING AGENCY from Last 3 Months or Most Recently Relevant to Health Maintenance Care Teams Bowling Ball Marker Relationship Specialty Start Date End Date Genesis Davis MD [address], [place] [id number] PCP - General 08/31/23
--- OUTSIDE RECORDS SUMMARY | 2024-03-04 10:30 | XMS_ITS | Clinical Summary ---
Author Organization [facility] Address [address] [place] [address] Care Team Providers Care Log Operations Coordinator Name Role Phone Ana Cortez NP Primary Care Provider [phone] Allergies Active Allergy Reactions Criticality Noted Date Comments Adhesive Tape Rash Low 09/21/2022 Erythromycin Hives Medium 09/21/2022 Latex Rash Low 09/21/2022 Medications Medication Sig Dispensed Refills Start Date End Date Status oxyCODONE-acetaminop hen (PERCOCET) 5-325 MG per tablet TAKE 1 TABLET BY MOUTH EVERY 12 HOURS NEEDED FOR CHRONIC PAIN FOR 30 DAYS 0 08/23/2022 Active LORazepam (ATIVAN) 0.5 MG tablet Take 1 tablet (0.5 mg total) by mouth. 0 08/03/2022 Active DULoxetine (CYMBALTA) DR capsule 60 mg Take 1 capsule (60 mg total) by mouth every morning. 0 09/12/2022 Active baclofen (LIORESAL) 20 MG tablet TAKE 1 TABLET BY MOUTH 3 TIMES A DAY FOR MUSCLE SPASTICITY FOR 30 DAYS 0 09/07/2022 Active Active Problems No known active problems Social History Tobacco Use Types Packs/Day Years Used Date Smoking Tobacco: Never Assessed Sex and Gender Information Value Date Recorded Sex Assigned at Female 09/21/2022 6:14 PM EDT Gender Identity Not on file Sexual Orientation Not on file Job Start Date Occupation Industry Not on file Not on file Not on file Last Filed Vital Signs Vital Sign Reading Time Taken Comments Blood Pressure 120/82 09/21/2022 10:00 PM EDT Pulse 79 09/21/2022 10:00 PM EDT Temperature 36.7 ??C (98.1 ??F) 09/21/2022 10:00 PM E DT Respiratory Rate 18 09/21/2022 10:00 PM EDT Oxygen Saturation 100% 09/21/2022 10:00 PM EDT Inhaled Oxygen Concentration - - Weight 72.6 kg (160 lb) 09/21/2022 6:32 PM EDT Height 162.6 cm (5' 4 ) 09/21/2022 6:32 PM EDT Body Mass Index 27.46 09/21/2022 6:32 PM EDT Plan of Treatment Health Maintenance Due Date Last Done Comments Hepatitis B Vaccines (1 of 3 - 3-dose series) 1989 Hepatitis C Screening 1989 COVID-19 Vaccine (#1) 1989 Depression Screening 2001 Preventative Health Evaluation 2007 Cervical Cancer Screening (P ap Smear) 2010 Influenza Vaccine (#1) 2023 DTap / Tdap / Td (2 - Td or Tdap) 10/12/2025 016 Pneumococcal Vaccine Aged Out No long er eligible based on patient's age to complete this topic RSV Ped < 20 months Aged Out No longe r eligible based on patient's age to complete this topic Care Teams Log Operations Coordinator Relationship Specialty Start Date End Date Ana Cortez NP [address] [id number] PCP - General Family Medicine 09/21/22
--- OUTSIDE RECORDS SUMMARY | 2024-03-04 10:31 | XMS_ITS | Referral Summary ---
Author Organization [facility] Address [address] [place] [address] Care Team Providers Care Railroad Brake Repairer Name Role Phone Ana Cortez Primary Care Provider [phone] Allergies Active Allergy Reactions Criticality Noted Date Comments Adhesive Rash High 03/09/2019 Erythromycin Rash Low 01/18/2006 Iodine Hives 08/03/2022 Latex Hives,Rash High 03/09/[address] (CYMBALTA) 60 mg capsule Take 90 mg by mouth once a day. Active LORazepam (ATIVAN) 0.5 mg tablet Take by mouth every 6 hours as needed for anxiety. Active docusate sodium (COLACE) 100 mg capsule Take 100 mg by mouth 2 times daily. 3 Active EPINEPHrine (EPIPEN) 0.3 mg/0.3 mL injection syringe Inject 0.3 mg into the shoulder, thigh, or buttocks muscle as directed once daily as needed. 2 Active famotidine (PEPCID) 40 mg tablet 3 Active ondansetron (ZOFRAN ODT) 4 mg disintegrating tablet Dissolve 4 mg in the mouth every 8 hours as needed. 3 Active LORazepam (ATIVAN) 0.5 mg tablet Take 1 tablet (0.5 mg total) by mouth Pre-medication (MRI pre-med) for up to 2 doses. 2 tablet 3 Active baclofen (LIORESAL) 20 mg tablet TAKE 1 TABLET BY MOUTH 3 TIMES A DAY FOR MUSCLE SPASTICITY FOR 30 DAYS 3 Active albuterol (PROAIR HFA,VENTOLIN HFA) 90 mcg inhaler SMARTSI Puff(s) By Mouth Every 6 Hours PRN 2 Active busPIRone (BUSPAR) 15 mg tablet SMARTSI Tablet(s) By Mouth Twice Daily 3 Active mirtazapine (REMERON) 7.5 mg tablet SMARTSI Tablet(s) By Mouth Every Night 3 Active senna 8.6 mg tablet SMARTSI Tablet(s) By Mouth Daily PRN 3 Active cholecalciferol (VITAMIN D3) 1,250 mcg (50,000 unit) capsule TAKE 1 CAPSULE BY MOUTH ONE TIME PER WEEK 12 capsule 3 Active azelastine (ASTELIN) 137 mcg (0.1 %) nasal spray Administer 2 sprays into each nostril 2 times a day. 30 mL 11 4 025 Active Active Problems Problem Noted Date Diagnosed Date Bilateral carpal tunnel syndrome 04/03/2023 Paresthesia 04/03/2023 Migraine 09/28/2022 Class 1 obesity 09/28/2022 Multiple neurological symptoms 09/28/2022 Chronic pelvic pain in female 08/29/2019 Overview (08/03/2022): Since 2018 Endometriosis 08/29/2019 Overview (08/03/2022): Clinical diagnosis Migraine without aura and wi thout status migrainosus, not intractable 08/29/2019 Overview (08/03/2022): Last Assessment & Plan: A history today of her migraines is taken; she reports no aura. She states that during the headache, she does have some nausea and visual spots/lights and photophobia. No symptoms precede the headache. Right hand pain 07/11/2019 Overview (08/03/2022): Last Assessment & Plan: Orthopedics diagnosed as CPT and recommends surgical release d/t presence of muscle wasting. Insurance requiring EMG which cannot be scheduled until 09/23/19. -will do trial of restarting her gabapentin which she tolerated well. Discussed titrating slowly up to 300mg tid -sent in #30 day supply with one refill. Discussed other pain medication options if gabapentin alone does not seem to be effective and she will message me in the next week if that is the case Allergic reaction to contrast dye 04/20/2019 Overview (08/03/2022): Last Assessment & Plan: Prednisone and rx for benadryl with directions for dosing prior to CT scan Anxiety with depression 04/20/2019 Overview (08/03/2022): Last Assessment & Plan: Recent increase in zoloft to 100mg daily with noted improvement -will refill today Right lower quadrant pain 04/20/2019 Overview (08/03/2022): Last Assessment & Plan: Will be scheduled with [facility] GI. Saw Dr. Reyes who recommended work up of potential GI causes of her pain prior to diagnostic laparoscopy. Asthma 09/24/2013 Social History Tobacco Use Types Packs/Day Years Used Date Smoking Tobacco: Never Smokeless Tobacco: Never Tobacco Cessation:Counseling Given: Not Answered Alcohol Use Standard Drinks/Week Comments Never 0 (1 standard drink = 0.6 oz pur e alcohol) Comments No Sex and Gender Information Value Date Recorded Sex Assigned at Female 09/02/2022 8:46 AM EDT Legal Sex Female 2:48 PM EDT Gender Identity Female 09/02/2022 8:46 AM EDT Sexual Orientation Straight 09/02/2022 8: 46 AM EDT Last Filed Vital Signs Vital Sign Reading Time Taken Comments Blood Pressure 120/81 09/28/2022 1:14 PM EDT Pulse 96 09/28/2022 1:14 PM EDT Temperature 36.1 ??C (96.9 ??F) 07/19/2022 9:43 AM ED T Respiratory Rate 18 07/19/2022 9:43 AM EDT Oxygen Saturation - - Inhaled Oxygen Concentration - - Weight 71 kg (156 lb 8.4 oz) 07/19/2022 9:43 AM EDT Height 162.6 cm (5' 4 ) 07/19/2022 9:43 AM EDT Body Mass Index 26.87 07/19/2022 9:43 AM EDT Plan of Treatment Not on file Insurance [employer] Care Teams Railroad Brake Repairer Relationship Specialty Start Date End Date Ana Cortez [address] [place], [place] [address] PCP - General 04/10/23
--- OUTSIDE RECORDS SUMMARY | 2024-03-04 10:31 | XMS_ITS | Clinical Summary ---
Author Organization [facility] Address [address] [place] [address] Care Team Providers Care Energy Projects Lead Name Role Phone Ana Cortez Primary Care Provider [phone] Allergies Active Allergy Reactions Criticality Noted Date [...] Assessment & Plan: Will be scheduled with [facility] GI. Saw Dr. Reyes who recommended work up of potential GI causes of her pain prior to diagnostic laparoscopy. Asthma 09/24/2013 Family History Medical History Relation Name Comments Diabetes Maternal Grandfather Glaucoma Maternal Grandfather Macular degeneration Maternal Grandmother Blindness Mother Glaucoma Other Hypertension Other Strabismus Other Thyroid disease Other Relation Name Status Comments Maternal Grandfather Maternal Grandmother Mother Other Social History Tobacco Use Types Packs/Day [...] 07/19/2022 9:43 AM EDT Plan of Treatment Health Maintenance Due Date Last Done Comments Cervical Cancer Screening 1989 HIV Screening 1989 HPV and Pap Smear 1989 Hepatitis C Screening 1989 Pap Smear 1989 Pneumococcal Vaccine: Pediat jani (0-5 Years) and At-Risk Patients (6-64 Years) (1 of 2 - PCV) 1995 Varicella Vaccines (1 of 2 - 13+ 2-dose series) 2001 Hepatitis B Vaccines (1 of 3 - 19+ 3-dose series) 12/14 COVID-19 Vaccine (1 - 2023- season) 2023 Influenza Vaccine (#1) 2023 Alcohol/Substance Use Screening 02/13/2024 Depression Evaluation 02/13/2024 Social Drivers of Health Annual Screening 02/13/2024 DTaP,Tdap,and Td Vaccines (2 - Td or Tdap) 10/12/2025 10/13/2015 RSV Vaccine (60+ years old a nd patients) (1 - 1-dose 75+ series) 01/07/2064 Insurance [employer]ICA[employer] Care Teams Energy Projects Lead Relationship Specialty Start Date End Date Ana Cortez [address] [place] [address] PCP - General 04/10/23
--- OUTSIDE RECORDS SUMMARY | 2024-03-04 10:31 | XMS_ITS | Encounter Summary ---
Author Organization [facility] Address [address] [place] [address] Care Team Providers Care Salt Miner Name Role Phone Ana Cortez Primary Care Provider [phone] Encounter Details Date Type Department Care Team (Late st Contact Info) Description 08/11/2022 Orders Only [facility] [address] [place] [address] Brenda Willard, DO [address] [place], [place] [id number] Social History Tobacco Use Types Packs/Day Years Used Date Smoking Tobacco: Never Smokeless Tobacco: Never Alcohol Use Standard Drinks/Week Comments Never 0 (1 standard drink = 0.6 oz pur e alcohol) Comments Unknown Sex and Gender Information Value Date Recorded Sex Assigned at Female 09/02/2022 8:46 AM EDT Legal Sex Female 2:48 PM EDT Gender Identity Female 09/02/2022 8:46 AM EDT Sexual Orientation Straight 09/02/2022 8: 46 AM EDT documented as of this encounter Plan of Treatment Not on file documented as of this encounter Visit Diagnoses Not on filedocumented in this encounter Care Teams Salt Miner Relationship Specialty Start Date End Date Ana Cortez [address] [place] [address] PCP - General 04/10/23 documented as of this encounter
[2024-03-04 17:42] LABS: Appearance Urine Clear; Color Urine Dark Yellow; Glucose Urine UA Negative (Negative); Leukocyte Esterase Urine Moderate (2+) (Negative); Nitrite Urine Negative (Negative); PH 6.5 (5.0-9.0); Specific Gravity - Urine 1.015 (1.005-1.025); UMIC TRIGGER UA YES; Urine Blood Moderate (2+) (Negative); Urine Ketones Negative (Negative); Urine Protein Negative (Neg-Trace)
[2024-03-04 17:44] LABS: MANUAL DIFF FLAG NO
[2024-03-04 17:50] LABS: Basophils Percent Auto 0.6 % (0-2); Eosinophils Absolute Auto 0.4 X10*3/uL (0.0-0.4); Eosinophils Percent Auto 5.8 % (0-4); Hematocrit 38.5 % (37.0-47.0); Imm Gran Abs Auto 0.01 X10*3/uL (0.00-0.03); Imm Gran Pct Auto 0.2 % (0.0-0.4); Lymphocytes Absolute Auto 2.2 X10*3/uL (1.2-4.9); Lymphocytes Percent Auto 34.8 % (20-40); Mean Corpuscular HGB Conc 33.8 g/dl (31.0-35.0); Mean Corpuscular Hemoglobin 28.5 pg (27.0-33.0); Mean Corpuscular Volume 84.4 fL (80.0-98.0); Mean Platelet Volume 9.8 fL (9.4-12.3); Monocytes Absolute Auto 0.5 X10*3/uL (0.1-1.2); Monocytes Percent Auto 7.2 % (2-11); Neutrophils Absolute Auto 3.3 x10*3/uL (2.0-8.3); Neutrophils Percent Auto 51.4 % (45-73); Platelet Count 297 X10*3/uL (160-400); Red Blood Count 4.56 X10*6/uL (4.20-5.50); White Blood Count 6.4 X10*3/uL (4.8-10.8)
[2024-03-04 18:05] LABS: Bacteria Urine Trace (None Seen); Hyaline Casts Urine 0-2 /LPF (0-2); RBC Urine 0-2 /HPF (0-2)
[2024-03-04 18:06] LABS: Alanine Aminotransferase 17 U/L (0-31); Aspartate Amino Transferase 29 U/L (5-31); Estimated Glomerular Filt Rate > 60; Iron 108 mcg/dL (30-160); Percent Iron Saturation 36 % (15-50); Total Iron Binding Capacity 304 mcg/dL (228-428); Unsaturated Iron Binding 196 ug/dL
[2024-03-04 18:25] LABS: Ferritin 62 ng/mL (10-122)
[2024-03-04 18:38] LABS: Folate 7.8 ng/mL (> or = 4.0); Vitamin B12 1095 pg/mL (200-900)
[2024-03-07 12:28] LABS: Parietal Cell Antibody <=20.0 Unit (<=20.0)
[2024-03-07 18:07] LABS: Intrinsic Factor Antibodies Negative (Negative)
[2024-03-07 21:59] LABS: Gastrin 39 pg/mL (<=100)
== END 2024-03-04 08:39 | disposition home or self-care (01) ==
LOC: HO.HKASLDS 08:38
PROVIDERS: Internal Medicine; Visit Provider Internal Medicine Rheumatology
DX: R30.0 Dysuria (principal); M35.2 Behcet's disease; G43.919 Migraine, unspecified, intractable, without status migrainosus; R31.9 Hematuria, unspecified; K29.40 Chronic atrophic gastritis without bleeding; Z79.60 Long term (current) use of unspecified immunomodulators and immunosuppressants
CPT/HCPCS: 36415; 81001; 82565; 82607; 82728; 82746; 82941; 83516; 83540; 84450; 84460; 85025; 86340; 87086; 99212

== ENCOUNTER → 2024-03-07 13:53 | Outpatient (REF) | payer OTHER, SELFPAY ==
--- NOTE | ~2024-03-07 | XR_ITS ---
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 TECHNIQUE: 2 views of the right knee. FINDINGS: The tricompartment joint space is minimally reduced. No acute fracture, dislocation or subluxation seen. No joint effusion or loose bodies. XR/XR knee RT 2V IMPRESSION: Minimal loss of tricompartment joint space. No acute fracture, dislocation or subluxation seen. Electronically signed by: David Bowser MD 03/10/2024 07:27 AM [facility]
--- NOTE | ~2024-03-07 | XR_ITS ---
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 TECHNIQUE: Four views of the left knee. FINDINGS: Minimal loss of tricompartment joint space. No bony erosive changes, acute fracture, dislocation or loose bodies. No joint effusion seen.. XR/XR knee LT 2V IMPRESSION: Minimal loss of tricompartment joint space. Electronically signed by: David Bowser MD 03/10/2024 07:27 AM [facility]
--- NOTE | 2024-03-07 14:04 | CA_ITS ---
Transthoracic Echocardiogram Patient (Last, First, Middle): Marie Pandya M Gender: Female Date of : 1990 Age: 34 Procedure Date: 03/07/2024 Procedure Type: Transthoracic Echocardiogram Location: OP Height: 162.56 cm Weight: 67.59 kg BSA: 1.73 m2 Heart Rate: bpm BP: 90 / 60 mmHg Verifying Machine Operator: TO Referring MD: Kt Randolph MD Rotary Planer Set Up Operator: Duane Rosas MD Symptoms: R00.0 - Tachycardia, unspecified Study Quality: Good ECG Rhythm: Sinus bradycardia Conclusions: - Normal study Findings Left Ventricle Normal left ventricular size, thickness, and systolic function. The visually estimated ejection fraction is between 60-65%. Diastolic function is normal for age. Peak GLS is -27.2%, excellent. Right Ventricle Normal right ventricular cavity size and systolic function. Atria Both atria are normal in size. There is no evidence of interatrial shunt. Aortic Valve Normal aortic valve structure and function. There is no aortic valve stenosis. There is no aortic valve regurgitation. Mitral Valve Normal mitral valve structure and function. There is trace mitral valve regurgitation. There is no mitral valve stenosis. Pulmonic Valve The pulmonic valve is normal. There is trace pulmonic valve regurgitation. Tricuspid Valve Normal tricuspid valve structure. There is trace tricuspid valve regurgitation. The right ventricular systolic pressure is normal. Normal right atrial pressure. There is no evidence of pulmonary hypertension. Great Vessels All visible segments of the aorta are normal in size. The visualized portions of the pulmonary artery and branches are normal. Venous The inferior vena cava is normal in size and collapses greater than 50% with inspiration. Pericardium/Pleural There is no evidence of pericardial effusion. Prior Study Comparison No prior study available for comparison. Measurements 2D Linear Measurements IVSd: 0.71 0.6-0.9/0.6-1.0 cm LVIDd: 5.28 3.9-5.3/4.2-5.9 cm LVIDd Index: 3.05 2.4-3.2/2.2-3.1 cm/m2 LVIDs: 3.10 2.0-3.6 cm LVPWd: 0.75 0.7-1.1 cm LA Diam: 3.50 2.7-3.8/3.0-4.0 cm LAIDs Index: 2.02 1.5-2.3 cm/m2 LV Mass: 165.20 67-162/88-224 g LV Mass Index: 95.49 43-95/49-115 g/m2 LVOT Diam: 2.20 3.0+(-)1.3 cm 2D Systolic Function EF 4C: 63.80 >55% EF 2C: 64.60 >55% EF BiP: 65.50 >55% Mitral Valve MV Pk E: 0.79 MV PK A: 0.30 MV Decel Time: 265.00 E/A: 2.70 E'Lateral: 15.40 E'Medial: 11.60 E/E' Med: 6.80 E/E' Lat: 5.10 PHT: 78.00 MVA PHT: 2.82 Decel Andrews: 2.97 Aortic Valve AoV Pk Dario: 1.48 AoV Mn Dario: 0.94 AoV VTI: 0.35 AoV Pk Grad: 9.00 Aov Mn Grad: 4.00 LIGIA Cont.VTI: 2.82 LVOT LVOT Pk Dario: 1.12 LVOT Mn Dario: 0.71 LVOT VTI: 0.26 LVOT Pk Grad: 5.00 LVOT Mn Grad: 2.00 LVOT Diam: 2.20 LVOT Area: 3.80 Diastolic Function MV Pk E: 0.79 MV Pk A: 0.30 E/A: 2.70 E'Medial: 11.60 E/E' Med: 6.80 E' Laterial: 15.40 E/E' Lat: 5.10 Right Ventricle TAPSE (mm): 27.70 TVS' Dario: 14.50 Tricuspid Valve TR Pk Dario: 1.56 TR Pk Grad: 10.00 RA Press: 3.00 RVSP: 13.00 Great Vessels Aorta Sinus of Valsalva: 3.08 2.0-3.5 cm Ao Asc: 2.90 2.1-3.4 cm Ao Arch: 2.50 Updated in Other Vendor System with Status of Final Duane Rosas MD electronically signed on 03/09/2024 11:49:28 AM with status of Final
--- OUTSIDE RECORDS SUMMARY | 2024-03-07 15:34 | XMS_ITS | Clinical Summary ---
Author Organization [facility] Address [address] [place] [address] Care Team Providers Care Home Care Scheduler Name Role Phone Ana Cortez Primary Care Provider [phone] Allergies Active Allergy Reactions Criticality Noted Date [...] Assessment & Plan: Will be scheduled with [facility] GI. Saw Dr. Reyes who recommended [...] Insurance [employer] MEDICAID WE[employer] MEDICAID Care Teams Home Care Scheduler Relationship Specialty Start Date End Date Ana Cortez [address] [place] [address] PCP - General 04/10/23
--- OUTSIDE RECORDS SUMMARY | 2024-03-07 15:34 | XMS_ITS | Referral Summary ---
Author Organization [facility] Address [address] [place] [address] Care Team Providers Care Superintendent Board Mill Name Role Phone Ana Cortez Primary Care Provider [phone] Allergies Active Allergy Reactions Criticality Noted Date [...] Assessment & Plan: Will be scheduled with [facility] GI. Saw Dr. Reyes who recommended [...] Insurance [employer] MEDICAID WE[employer] MEDICAID Care Teams Superintendent Board Mill Relationship Specialty Start Date End Date Ana Cortez [address] [place], [place] [address] PCP - General 04/10/23
--- OUTSIDE RECORDS SUMMARY | 2024-03-07 15:35 | XMS_ITS | Clinical Summary ---
Author Organization [address] Address [address] [place] [phone] Phone Care Team Providers Care Web Analytics Developer Name Role Phone Genesis Davis MD Primary [...] 1:30 PM EST - 01/03/2024 11:59 PM [facility] Hospital Encounter [facility] Nuclear Medicine [address] [place] [phone] Discharge Disposition: Home or Self Care 01/03/2024 10:00 AM EST - 01/03/2024 11:59 PM [facility] Hospital Encounter [facility] Nuclear Medicine [address] [place] [phone] Spondylosis without myelopathy or radiculopathy, thoracic region; [...] APPENDECTOMY PROCEDURE: HISTORICAL APPENDECTOMY ESOPHAGOGASTRODUODENOSCOPY 03/29/15 PROCEDURE: MS EGD TRANSORAL BIOPSY SINGLE/MULTIPLE; COMMENT: mild distal [...] Info) Description 04/15/2024 1:45 PM EST Appointment [facility] Xray [address] [place] [phone] Health Maintenance Due Date Last [...] Dictated Date: 01/03/2024 15:58 ET Assigned Physician: aSnty Devries Reviewed and Electronically Signed By: Santy Devries Signed Date: 01/03/2024 16:06 ET Workstation ID: [id number] Transcribed By: Self Edit Transcribed Date: 01/03/2024 [...] Signed Date: 01/03/2024 16:06 ET Workstation ID: [id number] Transcribed By: Self Edit Transcribed Date: 01/03/2024 15:58 ET Narayan Ernst MD IMG NM PROCEDURES * (ABNORMAL) Lipid panel (04/18/2018) Pathologist [facility] LDL/HDL Ratio 4 0 - 4 Triglycerides 97 0 - 150 mg/dL Cholesterol 179 0 - 200 mg/dL HDL 42 40 mg/dL LDL Cholesterol 118(A) 0 - 100 mg/dL Blood Venous blood specimen / Unknown Historical Provider LAB BLOOD ORDERAB LES * Hm HIV Screening (06/14/2017) Pathologist [facility] HIV Screening abstracted Historical Provider [facility] JUNE E * Pap smear (06/13/2017) 06/13/2017 Narrative HISTORICAL TESTING LAB RESULTING AGENCY - 06/20/2017 4:55 PM EDT [id number] THINPREP PAP, IMAGED AND CELL BLOCK: NEGATIVE [...] Recently Relevant to Health Maintenance Care Teams Web Analytics Developer Relationship Specialty Start Date End Date Genesis Davis MD [address] [place], [place] [phone] PCP - General 08/31/23
--- OUTSIDE RECORDS SUMMARY | 2024-03-07 15:35 | XMS_ITS | Clinical Summary ---
Author Organization [facility] Address [address] [place] [address] Care Team Providers Care Cylinder Machine Operator Name Role Phone Ana Cortez NP Primary Care Provider [phone] Allergies Active Allergy Reactions Criticality Noted Date [...] age to complete this topic Care Teams Cylinder Machine Operator Relationship Specialty Start Date End Date Ana Cortez NP [address] [address] PCP - General Family Medicine 09/21/22
--- OUTSIDE RECORDS SUMMARY | 2024-03-07 15:35 | XMS_ITS | Patient Health Record ---
Author Organization [facility] Address [address] [place] [phone] Support Name Relationship Address Phone JAVIER REYNOLDS [...] Coverage Start Date Coverage End Date [facility] [address] [place] [address] [id number] JAVIER REYNOLDS Self - patient is the insured
--- OUTSIDE RECORDS SUMMARY | 2024-03-07 15:35 | XMS_ITS | Encounter Summary ---
Author Organization [facility] Address [address] [place] [address] Care Team Providers Care Package Drier Name Role Phone Ana Cortez Primary Care Provider [phone] Encounter Details Date Type Department Care Team (Late st Contact Info) Description 08/11/2022 Orders Only [facility] Neurology Clinic [address] [place] [address] Brenda Willard, DO [address] [place], [place] [phone] Social History Tobacco Use Types Packs/Day Years [...] on filedocumented in this encounter Care Teams Package Drier Relationship Specialty Start Date End Date Ana Cortez [address] [place] [address] PCP - General 04/10/23 documented as of this encounter
== END ==
LOC: HO.CARD 13:53
PROVIDERS: Absent Provider Internal Medicine Rheumatology; Visit Provider Internal Medicine Cardiovascular Disease
DX: R00.0 Tachycardia, unspecified (principal); M35.2 Behcet's disease
CPT/HCPCS: 73560; 93242; 93306; 93356

== ENCOUNTER → 2024-03-07 14:59 | Outpatient (BNV) | payer OTHER, SELFPAY | PROVIDERS: Absent Provider Internal Medicine Rheumatology; Visit Provider Radiology Diagnostic Radiology | DX: M25.561 Pain in right knee (principal); M25.562 Pain in left knee | CPT/HCPCS: 73560 ==

== ENCOUNTER 2024-03-24 10:27 | Outpatient (REF) | payer OTHER, SELFPAY ==
[2024-03-24 10:58] LABS: MANUAL DIFF FLAG NO
--- OUTSIDE RECORDS SUMMARY | 2024-03-24 11:24 | XMS_ITS | Patient Health Record ---
Author Organization [facility] Address [address] [place] [phone] Support Name Relationship Address Phone JAVIER REYNOLDS [...] Insured Coverage Start Date Coverage End Date [facility] [address] [place] [address] [id number] JAVIER REYNOLDS Self - patient is the insured
--- OUTSIDE RECORDS SUMMARY | 2024-03-24 11:24 | XMS_ITS | Clinical Summary ---
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 Active amphetamine-dex troamphetamine (ADDERALL) 10 mg tablet Take 1 tablet (10 mg total) by mouth 2 (two) times a day. Active dextroamphetami ne/amphetamine (ADDERALL ORAL) Take 5 mg by mouth [...] mouth 1 (one) time each day. Active METHYLPREDNISOL ONE ORAL Take by mouth. Active Active Problems [...] 1:30 PM EST - 01/03/2024 11:59 PM [facility] Hospital Encounter [facility] Nuclear Medicine [address] [place] [phone] Discharge Disposition: Home or Self Care 01/03/2024 10:00 AM EST - 01/03/2024 11:59 PM [facility] Hospital Encounter [facility] Nuclear Medicine [address] [place] [phone] Spondylosis without myelopathy or radiculopathy, thoracic region; [...] APPENDECTOMY PROCEDURE: HISTORICAL APPENDECTOMY ESOPHAGOGASTRODUODENOSCOPY 03/29/15 PROCEDURE: WA EGD TRANSORAL BIOPSY SINGLE/MULTIPLE; COMMENT: mild distal [...] Recorded Sex Assigned at Not on file Legal Sex Female 8:54 PM EST Gender Identity Not on file Sexual Orientation Not on file Obstetrics History Last Filed [...] Description 04/15/2024 1:45 PM EST Appointment [facility] Xray [address] [place] [phone] Health Maintenance Due Date Last Done Comments COVID-19 Vaccine (#1) 1994 Hepatitis B Vaccines (1 of 3 - 19+ 3-dose series) 01/07/2008 Pneumococcal Vaccine: Pediatrics (0 to 5 Years) and At-Risk Patients (6 to 64 Years) (1 of 2 - PCV) 01/07/2008 DTaP,Tdap,and Td Vaccines (2 - Td or Tdap) 11/10/2015 10/13/2015 Cervical Cancer Screening: P ap Smear 06/13/2020 06/13/2017, 06/13/2017, 06/13/2017 Depression Screening 01/14/2022 Hepatitis C Screening 01/14/2022 Social Influencers of Health Screening 01/14/2022 Cholesterol Screening (Lipid Panel) 04/19/2023 04/18/2018 Influenza Vaccine (#1) 2023 HIV Screening Completed 06/14/2017 HIB Vaccines Aged [...] patient's age to complete this topic Meningococcal B Vacine Aged Out No lo nger eligible based on patient's age to complete [...] Signed Date: 01/03/2024 16:06 ET Workstation ID: [id number] Transcribed By: Self Edit Transcribed Date: 01/03/2024 [...] Signed Date: 01/03/2024 16:06 ET Workstation ID: [id number] Transcribed By: Self Edit Transcribed Date: 01/03/2024 15:58 ET Narayan Ernst MD IM NM PROCEDURES Final Resul t * (ABNORMAL) Lipid panel (04/18/2018) Pathologist [facility] LDL/HDL Ratio 4 0 - 4 Triglycerides 97 0 - 150 mg/dL Cholesterol 179 0 - 200 mg/dL HDL 42 >=40 mg/dL LDL Cholesterol 118(A) 0 - 100 mg/dL Blood Venous blood specimen / Unknown Historical Provider LAB BLOOD ORDERABLES Candis l Result * Hm HIV Screening (06/14/2017) [facility] HIV Screening abstracted Historical Provider HEALTH MAINTENANCE Final Result * Pap smear (06/13/2017) 06/13/2017 Narrative HISTORICAL TESTING LAB RESULTING AGENCY - 06/20/2017 4:55 PM EDT [id number] THINPREP PAP, IMAGED AND CELL BLOCK: NEGATIVE [...] ASCUS. Z12.4, Z34.81, PAP HX: NEGATIVE 06/09/2017, us [facility] LAB CYTOLOGY ORDERA BLES Final Result HISTORICAL TESTING LAB RESULTING AGENCY from Last 3 Months or Most Recently Relevant to Health Maintenance Insurance [facility] [employer] Care Teams Dog Track Kennel Manager Relationship Specialty Start Date End Date Genesis Davis MD [address] [place] [address] PCP - General 08/31/23
--- OUTSIDE RECORDS SUMMARY | 2024-03-24 11:24 | XMS_ITS | Encounter Summary ---
Author Organization [facility] Address [address] [place] [address] Care Team Providers Care Ciaio Lumite Injector Name Role Phone Ana Cortez Primary Care Provider [phone] Encounter Details Date Type Department Care Team (Late st Contact Info) Description 08/11/2022 Orders Only [facility] Neurology Clinic [address] [place] [address] Brenda Willard, DO [address] [place], [place] [phone] Social History Tobacco Use Types Packs/Day Years [...] on filedocumented in this encounter Care Teams Ciaio Lumite Injector Relationship Specialty Start Date End Date Ana Cortez [address] [place] [address] PCP - General 04/10/23 documented as of this encounter
--- OUTSIDE RECORDS SUMMARY | 2024-03-24 11:24 | XMS_ITS | Clinical Summary ---
Author Organization [facility] Address [address] [place] [address] Care Team Providers Care Marketing Consultant Name Role Phone Ana Cortez NP Primary Care Provider [phone] Allergies Active Allergy Reactions Criticality Noted Date [...] age to complete this topic Care Teams Marketing Consultant Relationship Specialty Start Date End Date Ana Cortez NP [address] [address] PCP - General Family Medicine 09/21/22
--- OUTSIDE RECORDS SUMMARY | 2024-03-24 11:24 | XMS_ITS ---
Author Organization [facility] Address Unknown Allergies, Adverse Reactions, Alerts Substance Reaction Status Noted Date Resolved Date Latex active 10/26/2023 Erythromycin active 10/26/2023 Adhesive Tape active 10/26/2023 Medications Medication Dose Frequency Directions Start Date End Jarek e MiraLax Oral Powder 17 GM/SCOOP 1 24 h Give 1 scoop by mout h one time a day for constipation mix with 8 oz of water 10/27/2023 DULoxetine HCl Oral Capsule Delayed Release Sprinkle 60 MG 1 {Capsule} 24 h Give 1 capsule by mouth one time a day for depression take with 30mg TD 90mg 10/27/2023 Amphetamine-Dextroamph etamine Oral Tablet 10 MG 1 {tbl} Give 1 tablet by mouth every 24 hours as needed for ADHD 10mg po daily at 12 noon prn 10/27/2023 Gabapentin Oral Tablet 800 MG 1 {tbl} 8 h Give 1 tablet by mouth every 8 hours for neuropathy 10/27/2023 Amphetamine-Dextroamph etamine Oral Tablet 10 MG 2 {tbl} 24 h Give 2 tablet by mouth one time a day for ADHD 10/27/2023 Mupirocin External Ointment 2 % Apply to affected areas topically every 12 hours as needed for rash 10/27/2023 Famotidine Oral Tablet 20 MG 1 {tbl} Give 1 tablet by mouth every morning and at bedtime for biliary dyskinesia 10/27/2023 DULoxetine HCl Oral Capsule Delayed Release Sprinkle 30 MG 1 {Capsule} 24 h Give 1 capsule by mouth one time a day for depression take with 60mg TD 90mg qd 10/27/2023 Fleet Enema Enema 7-19 GM/118ML 1 {Dose} Insert 1 dose rectally as needed for Constipation (Step 3) as needed if no bowel movement for 8 hours after bisacodyl suppository. 10/27/2023 Milk of Magnesia Suspension 400 MG/5ML 30 mL Give 30 ml by mout h as needed for Constipation (Step 1) As needed if no bowel movement for three days. (Do not use for Hemodialysis patients). 10/27/2023 Bisacodyl Suppository 10 MG 1 Insert 1 suppository rectally as needed for If no bowel movement for 8 hours after Milk of Magnesia 10/27/2023 busPIRone HCl Oral Tablet 15 MG 1 {tbl} Give 1 tablet by mouth every morning and at bedtime for mood disorder 10/27/2023 LORazepam Oral Tablet 0.5 MG 1 {tbl} Give 1 tablet by mouth every 6 hours as needed for anxiety 10/27/2023 CeleBREX Oral Capsule 100 MG 1 {Capsule} Give 1 capsule by mouth every 12 hours as needed for Pain 10/27/2023 Methocarbamol Oral Tablet 500 MG 1000 mg 8 h Give 1000 mg by mout h three times a day for Pain hold for sedation 10/30/2023 Tylenol Extra Strength Oral Tablet 500 MG 1000 mg 8 h Give 1000 mg by mout h three times a day for PAIN DO NOT EXCEED 3000MG 10/30/2023 Cetirizine HCl Oral Tablet 5 MG 1 {tbl} Give 1 tablet by mouth every 24 hours as needed for allergy symptoms 10/30/2023 oxyCODONE HCl Oral Tablet 5 MG 5 mg Give 5 mg by mouth every 8 hours as needed for mild pain 11/06/2023 oxyCODONE HCl Oral Tablet 5 MG 10 mg Give 10 mg by mouth every 8 hours as needed for moderate to severe pain 11/06/2023 Medications Administered Medication Dose Frequency Status Start Date End Date MiraLax Oral Powder 17 GM/SCOOP 1 24 h 11/08/2023 DULoxetine HCl Oral Capsule Delayed Release Sprinkle 60 MG 1 {Capsule} 24 h 11/08/2023 Amphetamine-Dextroamphet amine Oral Tablet 10 MG 1 {tbl} 10/27/2023 Gabapentin Oral Tablet 800 MG 1 {tbl} 8 h Other / See Progress Notes?? 11/08/2023 Amphetamine-Dextroamphet amine Oral Tablet 10 MG 2 {tbl} 24 h 11/08/2023 Mupirocin External Ointment 2 % 10/27/2023 Famotidine Oral Tablet 20 MG 1 {tbl} 11/08/2023 DULoxetine HCl Oral Capsule Delayed Release Sprinkle 30 MG 1 {Capsule} 24 h 11/08/2023 Fleet Enema Enema 7-19 GM/118ML 1 {Dose} 10/27/2023 Milk of Magnesia Suspension 400 MG/5ML 30 mL 10/29/2023 Bisacodyl Suppository 10 MG 1 10/30/2023 busPIRone HCl Oral Tablet 15 MG 1 {tbl} 11/08/2023 LORazepam Oral Tablet 0.5 MG 1 {tbl} 11/07/2023 CeleBREX Oral Capsule 100 MG 1 {Capsule} 11/08/2023 Methocarbamol Oral Tablet 500 MG 1000 mg 8 h Other / See Progress Notes?? 11/08/2023 Tylenol Extra Strength Oral Tablet 500 MG 1000 mg 8 h Other / See Progress Notes?? 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 - ICD-10-CM) ACTIVE 10/26/2023 FIBROMYALGIA (M79.7 - ICD-10-CM) ACTIVE 10/26/19 CHRONIC PAIN SYNDROME (G89.4 - ICD-10-CM) ACTIVE 10/26/2023 WEAKNESS (R53.1 - ICD-10-CM) ACTIVE 10/26/2023 ANXIETY DISORDER, UNSPECIFIED (F41.9 - ICD-10-CM) ACTI VE 10/26/2023 POSTCHOLECYSTECTOMY SYNDROME (K91.5 - ICD-10-CM) ACTIV E 10/26/2023 MUSCLE WEAKNESS (GENERALIZED) (M62.81 - ICD-10-CM) ACT WENDY 10/26/2023 OTHER ABNORMALITIES OF GAIT AND MOBILITY (R26.89 - ICD-10-CM) ACTIVE 10/26/2023 Encounters Encounter Performer Performer Role Encounter Diagnoses Location Date Discharge - Discharged to home or self care - HOME - [facility] 4 07:37 pm EDT - 4 11:35 am EDT Social History
--- OUTSIDE RECORDS SUMMARY | 2024-03-24 11:24 | XMS_ITS | Clinical Summary ---
Author Organization [facility] Address [address] [place] [address] Care Team Providers Care Septic Pump Truck Driver Name Role Phone Ana Cortez Primary Care Provider [phone] Allergies Active Allergy Reactions Criticality Noted Date [...] Assessment & Plan: Will be scheduled with [facility] GI. Saw Dr. Reyes who recommended [...] Insurance [employer] MEDICAID WE[employer] MEDICAID Care Teams Septic Pump Truck Driver Relationship Specialty Start Date End Date Ana Cortez [address] [place] [address] PCP - General 04/10/23
--- OUTSIDE RECORDS SUMMARY | 2024-03-24 11:24 | XMS_ITS | Referral Summary ---
Author Organization [facility] Address [address] [place] [address] Care Team Providers Care Housekeeping Room Attendant Name Role Phone Ana Cortez Primary Care Provider [phone] Allergies Active Allergy Reactions Criticality Noted Date [...] Assessment & Plan: Will be scheduled with [facility] GI. Saw Dr. Reyes who recommended [...] Insurance [employer] MEDICAID WE[employer] MEDICAID Care Teams Housekeeping Room Attendant Relationship Specialty Start Date End Date Ana Cortez [address] [place], [place] [address] PCP - General 04/10/23
[2024-03-24 11:39] LABS: Basophils Percent Auto 0.2 % (0-2); Eosinophils Percent Auto 0.6 % (0-4); Hematocrit 38.7 % (37.0-47.0); Hemoglobin 13.8 g/dl (12.0-16.0); Imm Gran Abs Auto 0.03 X10*3/uL (0.00-0.03); Imm Gran Pct Auto 0.6 % (0.0-0.4); Lymphocytes Absolute Auto 1.4 X10*3/uL (1.2-4.9); Lymphocytes Percent Auto 28.5 % (20-40); Mean Corpuscular HGB Conc 35.7 g/dl (31.0-35.0); Mean Corpuscular Hemoglobin 29.2 pg (27.0-33.0); Mean Platelet Volume 9.9 fL (9.4-12.3); Monocytes Absolute Auto 0.5 X10*3/uL (0.1-1.2); Monocytes Percent Auto 9.7 % (2-11); Neutrophils Absolute Auto 2.9 x10*3/uL (2.0-8.3); Neutrophils Percent Auto 60.4 % (45-73); Platelet Count 235 X10*3/uL (160-400); Red Blood Count 4.72 X10*6/uL (4.20-5.50); Red Cell Distribution Width 13.2 % (11.0-16.0); White Blood Count 4.8 X10*3/uL (4.8-10.8)
[2024-03-24 12:08] LABS: Alanine Aminotransferase 20 U/L (0-31); Aspartate Amino Transferase 31 U/L (5-31); Estimated Glomerular Filt Rate > 60
== END 2024-03-24 10:28 | disposition home or self-care (01) ==
LOC: HO.LAB 10:27
PROVIDERS: Referring Provider Internal Medicine; Visit Provider Internal Medicine Rheumatology
DX: Z79.60 Long term (current) use of unspecified immunomodulators and immunosuppressants (principal)
CPT/HCPCS: 36415; 82565; 84450; 84460; 85025

== ENCOUNTER 2024-03-25 05:49 | Emergency (ER) | payer OTHER, SELFPAY ==
--- NOTE | ~2024-03-25 | XR_ITS ---
EXAMINATION: XR CHEST 2 VIEWS HISTORY: cough, sob COMPARISON: Comparison is made with the prior examination dated 12/15/2023. FINDINGS: PA and lateral views of the chest are submitted. The lungs are expanded and clear. There is no pleural effusion, pneumothorax, or pulmonary vascular congestion. The heart is normal in size. The bones are intact. XR/XR chest 2V IMPRESSION: No acute cardiopulmonary abnormality. Electronically signed by: Mikael Méndez MD 03/25/2024 10:57 AM [facility]
--- NOTE | ~2024-03-25 | CT_ITS ---
EXAMINATION: CT ABDOMEN AND PELVIS WITH CONTRAST CLINICAL INFORMATION: Diffuse abdominal pain, nausea and vomiting, flank pain. COMPARISON: 10/18/2023. TECHNIQUE: Multidetector volumetric images were obtained from the superior aspect of the liver through the pubic symphysis following administration 85 mL of Omnipaque 350 intravenous contrast. Sagittal and coronal reformatted images were obtained on the technologist's workstation. Oral contrast: No This CT examination was performed using dose optimization techniques as appropriate, variously including the following: *Automated exposure control *Adjustment of mA and/or kV according to patient size (this includes techniques or standardized protocols for targeted exams where dose is matched to indication/reason for exam; i.e. extremities or head) *Use of iterative reconstruction technique FINDINGS: LUNG BASES: Diffuse peribronchial thickening in the lung bases, most notable left lower lobe. Associated centrilobular nodular foci of airspace disease right middle lobe, left lower lobe, and to a lesser degree right lower lobe, in keeping with bronchopneumonia. No effusions. LIVER, GALLBLADDER, AND BILIARY TREE: The liver is normal in size, shape, and attenuation. No suspicious focal hepatic lesion. Minimal focal fatty infiltration abutting the falciform ligament. There is mild intra and extrahepatic biliary dilatation, most likely representing post cholecystectomy state. The common bile duct in the pancreatic head region measures 10 mm in diameter. Smooth tapering into the papilla. No change in these findings. Gallbladder is surgically absent. PANCREAS: Unremarkable. SPLEEN: Mildly enlarged measuring 14.0 x 11.7 cm. ADRENAL GLANDS: Unremarkable. KIDNEYS AND URETERS: The kidneys are normal in size, shape, and attenuation. No hydronephrosis, hydroureter, or calculi seen. No perinephric stranding. BLADDER: Unremarkable. GASTROINTESTINAL TRACT: The small and large bowel are unremarkable. The appendix is likely surgically absent. ABDOMINAL WALL: No significant hernia is appreciated. LYMPH NODES: None enlarged by size criteria. VASCULAR: Unremarkable. PELVIC VISCERA: The uterus and adnexa are unremarkable. OSSEOUS STRUCTURES: No suspicious lytic or blastic bone lesions. Mild chronic superior endplate concavities T10 and T9. CT/CT abdomen pelvis w IV con IMPRESSION: 1. Findings of bronchopneumonia in the lung bases. 2. No acute findings in the abdomen or pelvis. 3. Mild splenic enlargement, uncertain etiology. 4. Stable ancillary findings as discussed. Electronically signed by: Didier Awad MD 03/25/2024 12:33 PM [facility]
[2024-03-25 05:53] VITALS: BP 131/80; PULSE 106; RESP 17; TEMP 36; O2SAT 99; BMI 24.8
[2024-03-25 06:28] LABS: MANUAL DIFF FLAG NO
[2024-03-25 06:32] LABS: Eosinophils Percent Auto 0.3 % (0-4); Hematocrit 36.5 % (37.0-47.0); Hemoglobin 13.4 g/dl (12.0-16.0); Imm Gran Abs Auto 0.03 X10*3/uL (0.00-0.03); Imm Gran Pct Auto 0.4 % (0.0-0.4); Lymphocytes Absolute Auto 1.3 X10*3/uL (1.2-4.9); Lymphocytes Percent Auto 16.8 % (20-40); Mean Corpuscular HGB Conc 36.7 g/dl (31.0-35.0); Mean Corpuscular Hemoglobin 29.3 pg (27.0-33.0); Mean Corpuscular Volume 79.7 fL (80.0-98.0); Mean Platelet Volume 9.5 fL (9.4-12.3); Monocytes Absolute Auto 0.7 X10*3/uL (0.1-1.2); Neutrophils Absolute Auto 5.5 x10*3/uL (2.0-8.3); Neutrophils Percent Auto 73.5 % (45-73); Platelet Count 252 X10*3/uL (160-400); Red Blood Count 4.58 X10*6/uL (4.20-5.50); Red Cell Distribution Width 13.2 % (11.0-16.0); White Blood Count 7.5 X10*3/uL (4.8-10.8)
[2024-03-25 06:58] LABS: Alanine Aminotransferase 24 U/L (0-31); Albumin Level 4.4 g/dL (3.5-5.0); Alkaline Phosphatase 84 U/L (39-117); Anion Gap 16 (12-20); Aspartate Amino Transferase 33 U/L (5-31); Bilirubin Direct 0.4 mg/dL (0.0-0.5); Bilirubin Total 0.9 mg/dL (0.0-1.0); Blood Urea Nitrogen 8 mg/dL (9-16); Carbon Dioxide 24 mmol/L (22-29); Chloride 99 mmol/L (96-108); Creatinine Clr Calc Pharmacy 117.4; Estimated Glomerular Filt Rate > 60; Glucose Random 94 mg/dL (60-115); HCG Quantitative < 2 mIU/mL; Lipase 58 U/L (8-78); Potassium 3.9 mmol/L (3.3-5.1); Sodium 135 mmol/L (135-145); Total Protein 7.5 g/dL (6.5-8.0)
[2024-03-25 09:57] LABS: Magnesium 1.9 mg/dL (1.6-2.6)
[2024-03-25] MEDS: Ketorolac Tromethamine 15 MG/ML VIAL IVPUSH (09:58)
[2024-03-25] MEDS: 0.9 % Sodium Chloride 1,000 ML 999 ML IV (09:58)
[2024-03-25] MEDS: ondansetron HCL 4 MG/2 ML VIAL IVPUSH (09:58)
--- NOTE | 2024-03-25 10:07 | ED.ABDPAIN ---
HPI - Abdominal Pain General Chief Complaint: Abdominal Pain Stated Complaint: vomiting & abd pain Time Seen by Provider: 03/25/24 09:11 Source: patient, RN notes reviewed and old records reviewed Mode of arrival: ambulatory History of Present Illness ED Provider: Tara Sargent PA-C HPI narrative: 34-year-old female with a past medical history presents disease, fibromyalgia, headaches, pyelonephritis dx on 01/22/24, recent influenza 3 weeks ago, presenting to the ED complaining of diffuse abdominal pain, nausea, vomiting, inability to tolerate p.o., productive cough, SOB x 3 weeks. Also reports bilateral low pain and subjective fever. Denies diarrhea, dysuria/hematuria, travel, sick contacts, suspicious food intake Related Data Home Medications ?Medication ?Instructions ?Recorded ?Confirmed duloxetine 30 mg capsule,delayed 30 mg PO DAILY 08/04/22 02/22/24 release dextroamphetamine-amphetamine 10 20 mg PO DAILY 10/18/23 02/22/24 mg tablet duloxetine 60 mg capsule,delayed 60 mg PO DAILY 10/18/23 02/22/24 release mupirocin 2 % topical ointment 1 appl topical BID PRN Rash 10/18/23 02/22/24 nhamuhwi-xhkitjdvs-ibjroons 3.5 1 drp ophthalmic (eye) Q12H 01/02/24 02/22/24 mg/mL-10,000 unit/mL-0.1% eye drops turmeric 400 mg capsule mg PO 01/02/24 02/22/24 glucosamine-chondroitin 250 mg-200 2 tab PO TID 01/03/24 02/22/24 mg tablet (Osteo Bi-Flex) diazepam 5 mg tablet 5 mg PO TID PRN 02/22/24 02/22/24 dextroamphetamine-amphetamine 10 20 mg PO DAILY@1200 PRN attention 03/04/24 mg tablet Previous Rx's ?Medication ?Instructions ?Recorded famotidine 20 mg tablet 20 mg PO BID #1 tab 10/26/23 oxycodone 5 mg tablet 10 mg (2 x 5 mg) PO Q6H PRN Pain, 10/26/23 Moderate(Pain Scale 4-6) #7 tabs tizanidine 2 mg capsule 2 mg PO Q8H PRN muscle spasticity 01/03/24 #90 caps ondansetron 4 mg disintegrating 4 mg PO Q8H PRN nausea and 01/22/24 tablet vomiting #7 tabs dicyclomine 10 mg capsule 10 mg PO BID PRN abdominal pain 90 02/04/24 days #180 caps prucalopride 1 mg tablet 1 mg PO DAILY 90 days #90 tabs 02/08/24 (Motegrity) folic acid 1 mg tablet 1 mg PO DAILY #90 tabs 02/14/24 Magic Mouthwash 240 ml PO .COMPLEX #240 mL 03/04/24 Diphen/Lido/Antacid 1:1:1 240 mL suspension celecoxib 200 mg capsule (Celebrex) 200 mg PO BID #60 caps 03/04/24 colchicine 0.6 mg tablet 0.6 mg PO BID #60 tabs 03/04/24 gabapentin 600 mg tablet 900 mg (1.5 x 600 mg) PO TID #135 03/04/24 tabs ondansetron HCl 4 mg tablet 4 mg PO Q8H PRN nausea and 03/04/24 vomiting #42 tabs ondansetron 4 mg disintegrating 4 mg PO BID PRN nausea and 03/11/24 tablet vomiting #10 tabs apremilast 10 mg (4)-20 mg (4)-30 See Rx Instructions PO PER PKG DIR 03/13/24 mg (47) tablets in a dose pack #55 ea (Otezla Starter) apremilast 30 mg tablet (Otezla) 30 mg PO BID #180 tabs 03/13/24 amoxicillin 875 mg-potassium 1 tab PO BID 7 days #14 tabs 03/25/24 clavulanate 125 mg tablet doxycycline hyclate 100 mg tablet 100 mg PO BID 7 days #14 tabs 03/25/24 Allergies Allergy/AdvReac Type Severity Reaction Status Date / Time erythromycin base Allergy Unknown UNKNOWN Verified 03/25/24 05:55 [ERYTHROMYCIN BASE] latex [LATEX] Allergy Unknown UNKNOWN Verified 03/25/24 05:55 acetaminophen [From Tylenol] AdvReac Unknown Verified 03/25/24 05:55 Adhesive tape Allergy Unknown Unknown Uncoded 03/25/24 05:55 Erthromycin Allergy Unknown Unknown Uncoded 03/25/24 05:55 Latex Allergy Unknown Unknown Uncoded 03/25/24 05:55 plaquenol AdvReac Intermediate Vomiting Uncoded 03/25/24 05:55 Review of Systems Review of Systems Yes all other systems are reviewed and are negative Constitutional: Reports as per HPI [facility] Past Medical History Attestation statement: The following information was validated with the patient. 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] Personal history of malignant melanoma of skin Muscle spasm of back Chronic pain syndrome Generalized anxiety disorder Major depressive disorder, single episode, in full remission Surgical History Hx laparoscopic cholecystectomy (10/22/23) Hx of tonsillectomy History of appendectomy Social History Social History Household Members: Spouse and Family Housing: House Are you a primary child care centre manager to a significant other at home: No Do you presently have visiting nurse or other home services: No Alcohol intake: current Alcohol intake frequency: holidays/special occasions only Patient Tobacco Use Status: Former Tobacco user Tobacco use type: Cigarette e-Cigarette/Vaping Use: Currently Using Second Hand Smoke Exposure: No Substance Use Type: Other and Caffiene Advance Directives: Yes Advance Directives on File: Yes Advance Directives Date on File: 10/29/23 Do you have a plan to hurt others: No Plan service: No Physical Exam ED Vital Signs: Vital Signs - 24 hr 03/25/24 05:53 03/25/24 10:32 Temperature 96.8 F Pulse Rate 106 H 74 Respiratory Rate 17 18 Blood Pressure 131/80 Pulse Oximetry 99 Oxygen Delivery Method Room Air BMI result Body Mass Index 24.8 Const General: cooperative, healthy appearing and no acute distress Orientation/consciousness: patient oriented x3 Limitations: no limitations HENMT Head: Yes normal to inspection and Yes atraumatic Ears: hearing grossly normal bilaterally General nose exam: Normal external nose present Face and sinus: Yes normal facial exam Eyes General: appearance normal, both eyes and all related structures EOM: EOMs intact bilaterally Neck Neck: Yes normal visual inspection and Yes no meningeal signs Resp Effort & Inspection: normal respiratory effort and no respiratory distress Auscultation: rhonchi throughout Cardio Rate: regular rate Heart sounds: S1 normal heart sound present and S2 normal heart sound present GI Inspection: Yes normal to inspection Palpation (GI): Soft to palpation, Tenderness to palpation present (GI) (diffusely) with no rebound tenderness, no guarding and not rigid General: Yes CVA tenderness bilateral Back/Spine/Pelvis Back: CVA tenderness Skin Wounds: no wounds Neuro General: patient oriented x3, tone normal and no meningeal signs Cranial nerves: Yes CN's II-XII intact bilaterally Gait exam (Neuro): Normal gait present Extrem General: Yes normal to inspection Course Course Course Narrative: -1317--no leukocytosis. Labs otherwise reassuring. HCG negative. -UA with protein, blood/RBCs. Not infected. Contaminated. -influenza B positive (likely old infection - known) XR chest 2V IMPRESSION: No acute cardiopulmonary abnormality. CT abdomen pelvis w IV con IMPRESSION: 1. Findings of bronchopneumonia in the lung bases. 2. No acute findings in the abdomen or pelvis. 3. Mild splenic enlargement, uncertain etiology. 4. Stable ancillary findings as discussed. > patient is tolerating p.o. in the ED. Urine is dark will add CPK -1415-- CPK wnl Results discussed with patient including worrisome signs and symptoms and strict return precautions, and when to return to the emergency department. They verbalized understanding and feel safe for discharge at this time. Medical Decision Making Medical Decision Making [facility] Narrative: 1012: 34-year-old female with a past medical history presents disease, fibromyalgia, headaches, pyelonephritis dx on 01/22/24, recent influenza 3 weeks ago, presenting to the ED complaining of diffuse abdominal pain, nausea, vomiting, inability to tolerate p.o., productive cough, SOB x 3 weeks. Also reports bilateral low pain and subjective fever. On exam tachycardic, appears uncomfortable, coarse lung sounds throughout, abdomen soft diffusely tender, bilateral CVAT noted. Concern for viral illness vs pneumonia/bronchitis vs UTI/pyelo vs colitis/diverticulitis/appendicitis. Lower suspicion for acute ACS/PE or dissection. Unlikely severe sepsis at this time Plan: Labs, UA, viral testing, CXR, CT AP, IVF, pain control, re-evaluate Please refer to course for remaining clinical decision making, interpretation of labs/imaging results, and discussions with consultants and/or family members. Differential Diagnosis Differential Diagnoses: The differential diagnosis associated with the presentation includes As above Admission/Observation Consideration of admission/observation: Escalation of care including admission/observation considered Lab Data MDM Lab Attestation statement: I reviewed the patient's lab results. 03/25/24 06:13 03/25/24 06:13 Labs: Lab Results 03/25/24 03/25/24 Range/Units 06:13 10:10 WBC 7.5 (4.8-10.8) X10*3/uL RBC 4.58 (4.20-5.50) X10*6/uL Hgb 13.4 (12.0-16.0) g/dl Hct 36.5 L (37.0-47.0) % MCV 79.7 L (80.0-98.0) fL MCH 29.3 (27.0-33.0) pg MCHC 36.7 H (31.0-35.0) g/dl RDW 13.2 (11.0-16.0) % Plt Count 252 (160-400) X10*3/uL MPV 9.5 (9.4-12.3) fL Immature Gran % (Auto) 0.4 (0.0-0.4) % Neut % (Auto) 73.5 H (45-73) % Lymph % (Auto) 16.8 L (20-40) % [place] % (Auto) 9.0 (2-11) % Eos % (Auto) 0.3 (0-4) % Baso % (Auto) 0.0 (0-2) % Lymph # (Auto) 1.3 (1.2-4.9) X10*3/uL [place] # (Auto) 0.7 (0.1-1.2) X10*3/uL Eos # (Auto) 0.0 (0.0-0.4) X10*3/uL Baso # (Auto) 0.0 (0.0-0.2) X10*3/uL Abs Immat Gran (auto) 0.03 (0.00-0.03) X10*3/uL Absolute Neuts (auto) 5.5 (2.0-8.3) x10*3/uL Absolute Nucleated RBC 0.000 (0.0-0.012) X10*3/uL Nucleated RBC % (auto) 0.0 (0.0-0.2) /100WBC Sodium 135 (135-145) mmol/L Potassium 3.9 (3.3-5.1) mmol/L Chloride 99 (96-108) mmol/L Carbon Dioxide 24 (22-29) mmol/L Anion Gap 16 (12-20) BUN 8 L (9-16) mg/dL Creatinine 0.60 (0.5-1.4) mg/dL Estim Creat Clear Calc 117.4 Estimated GFR > 60 Random Glucose 94 (60-115) mg/dL Calcium 9.0 (8.4-10.2) mg/dL Magnesium 1.9 (1.6-2.6) mg/dL Total Bilirubin 0.9 (0.0-1.0) mg/dL Direct Bilirubin 0.4 (0.0-0.5) mg/dL AST 33 H (5-31) U/L ALT 24 (0-31) U/L Alkaline Phosphatase 84 (39-117) U/L Total Creatine Kinase 121 (26-140) U/L Total Protein 7.5 (6.5-8.0) g/dL Albumin 4.4 (3.5-5.0) g/dL Lipase 58 (8-78) U/L Beta HCG, Quant < 2 mIU/mL Urine Color Dark Yellow Urine Appearance Clear Urine pH 6.5 (5.0-9.0) Ur Specific [place] 1.015 (1.005-1.025) Urine Protein 30 (1+) H (Neg-Trace) mg/dL Urine Glucose (UA) Negative (Negative) mg/dL Urine Ketones 40 (Negative) mg/dL Urine Blood Moderate (2+) H (Negative) Urine Nitrite Negative (Negative) Ur Leukocyte Esterase Small (1+) H (Negative) Urine RBC 3-5 H (0-2) /HPF Urine WBC 0-5 (0-5) /HPF Ur Squamous Epith Cells 6-10 (0-2) /HPF Urine Bacteria None Seen (None Seen) Hyaline Casts 0-2 (0-2) /LPF Influenza Type A (PCR) NEGATIVE (Negative) Influenza Type B (PCR) POSITIVE A (Negative) RSV RNA Qual (PCR) NEGATIVE (Negative) SARS-CoV-2 RNA (RT-PCR) NEGATIVE (Negative) Independent Interpretation I performed an independent interpretation of an: Plain X-Ray and CT Scan Radiology Impression Discussion of test interpretation with radiology: I have reviewed the radiologist's reading. External Record Review External record reviewed: Inpatient record, Office record, Outpatient record, Prior outpatient labs, Prior outpatient radiology, Primary care record and Outside ED record Tests considered The following testing was considered but not selected: As above Prescription Management I considered prescription management with: Pain Medication, Antiviral and Antibiotic Chronic Conditions Patient?s care impacted by: Other (Behcet's disease, fibromyalgia) Social Determinants Patient?s care significantly limited by Social Determinants of Health including: Other Social Determinant of Health Medications Administered Discontinued Medications Generic Name Dose Route Start Last Admin Trade Name Freq PRN Reason Stop Dose Admin Albuterol Sulfate 2.5 mg 03/25/24 10:27 03/25/24 10:32 Albuterol Sulfate (0.083%) 2.5 Mg/3 Ml Vial.Neb INHALE 03/25/24 10:28 2.5 mg ONCE ONE Administration Sodium Chloride 1,000 mls @ 999 mls/hr 03/25/24 09:45 03/25/24 12:49 Ns IV 03/25/24 10:45 Infused .Q1H1M XIMENA Infusion Iohexol 70 ml 03/25/24 10:50 03/25/24 10:51 Iohexol 350 Mg/Ml 75 Ml Infus..Btl IV 03/25/24 10:51 70 ml ONCE ONE Administration Ketorolac Tromethamine 15 mg 03/25/24 09:56 03/25/24 09:58 Ketorolac Tromethamine 15 Mg/Ml Vial IVPUSH 03/25/24 09:57 15 mg ONCE ONE Administration Morphine Sulfate 2 mg 03/25/24 11:23 03/25/24 11:35 Morphine Sulfate 2 Mg/Ml Cartridge IVPUSH 03/25/24 11:24 2 mg ONCE ONE Administration Protocol Ondansetron HCl 4 mg 03/25/24 09:37 03/25/24 09:58 Ondansetron Hcl 4 Mg/2 Ml Vial IVPUSH 03/25/24 09:38 4 mg ONCE ONE Administration Discharge Plan Discharge Clinical Impression: Bronchopneumonia, Abdominal pain, Nausea & vomiting, Influenza Patient Disposition: Home, Self-Care Instructions: Acute Nausea and Vomiting (ED), Abdominal Pain (ED), Pneumonia (ED) Additional Instructions: Your CT scan shows pneumonia. Augmentin and doxycycline are antibiotics please take as prescribed until completion Your blood work is otherwise reassuring Your urine shows protein and blood, please have follow up with her doctor in regards to this If your symptoms persist or worsen or pain becomes unbearable, you are unable to eat or drink return to the emergency department MAKE SURE YOU ARE STAYING HYDRATED Prescriptions: New doxycycline hyclate 100 mg tablet 100 mg PO BID 7 Days Qty: 14 0RF amoxicillin-pot clavulanate 875-125 mg tablet 1 tab PO BID 7 Days Qty: 14 0RF No Action Motegrity 1 mg tablet 1 mg PO DAILY 90 Days Qty: 90 0RF folic acid 1 mg tablet 1 mg PO DAILY Qty: 90 3RF Magic Mouthwash Diphen/Lido/Antacid 1:1:1 240 mL suspension 240 ml PO .COMPLEX Qty: 240 2RF Rx Instructions: 240 mL orally; Lidocaine Viscous 2 % 80mL; diphenhydramine 12.5 mg/5 mL 80mL; aluminum-mag hydrox-simeth 536pw-[id number]-18sq/5mL 80mL Swish, gargle and split 5 mL every 4-6 hours as needed. ondansetron 4 mg tablet,disintegrating 4 mg PO BID PRN (Reason: nausea and vomiting) Qty: 10 1RF Otezla Starter 10 mg (4)-20 mg (4)-30 mg (47) tablets,dose pack See Rx Instructions PO PER PKG DIR Qty: 55 0RF Rx Instructions: PA approved. Please dispense. Authorization number: [id number]. Otezla 30 mg tablet 30 mg PO BID Qty: 180 2RF Rx Instructions: Start after starter kit. Dispense 90 day supply. PA needed. dextroamphetamine-amphetamine 10 mg tablet 20 mg PO DAILY Rx Instructions: TAKE 2 TABLETS BY MOUTH EVERY MORNING AND TAKE 1 TABLET EVERY AFTERNOON mupirocin 2 % ointment 1 appl topical BID PRN (Reason: Rash) duloxetine 60 mg capsule,delayed release(DR/EC) 60 mg PO DAILY famotidine 20 mg Tablet 20 mg PO BID Qty: 1 0RF oxycodone 5 mg Tablet 10 mg PO Q6H PRN (Reason: Pain, Moderate(Pain Scale 4-6)) Qty: 7 0RF Rx Instructions: Partial Fill upon patient request. dextroamphetamine-amphetamine 10 mg tablet 20 mg PO DAILY@1200 PRN (Reason: attention) ondansetron 4 mg tablet,disintegrating 4 mg PO Q8H PRN (Reason: nausea and vomiting) Qty: 7 0RF dicyclomine 10 mg capsule 10 mg PO BID PRN (Reason: abdominal pain) 90 Days Qty: 180 0RF duloxetine 30 mg capsule,delayed release(DR/EC) 30 mg PO DAILY neomycin-polymyxin B-dexameth 3.5mg/mL-10,000 unit/mL-0.1 % drops,suspension 1 drp ophthalmic (eye) Q12H turmeric 400 mg capsule PO glucosamine-chondroitin [Osteo Bi-Flex] 250-200 mg tablet 2 tab PO TID Rx Instructions: give after food/meal tizanidine 2 mg capsule 2 mg PO Q8H PRN (Reason: muscle spasticity) Qty: 90 2RF Rx Instructions: Take 1 tablet TID replace prior muscle relaxers ondansetron HCl 4 mg tablet 4 mg PO Q8H PRN (Reason: nausea and vomiting) Qty: 42 0RF celecoxib [Celebrex] 200 mg capsule 200 mg PO BID Qty: 60 2RF Rx Instructions: Take with food. colchicine 0.6 mg tablet 0.6 mg PO BID Qty: 60 5RF gabapentin 600 mg tablet 900 mg PO TID Qty: 135 5RF diazepam 5 mg tablet 5 mg PO TID PRN Referrals: Physician,None [Primary Care Provider] - 3 days Print Language: Palestinian
[2024-03-25 10:20] LABS: Appearance Urine Clear; Color Urine Dark Yellow; Glucose Urine UA Negative (Negative); Leukocyte Esterase Urine Small (1+) (Negative); Nitrite Urine Negative (Negative); PH 6.5 (5.0-9.0); Specific Gravity - Urine 1.015 (1.005-1.025); UMIC TRIGGER UACC YES; Urine Blood Moderate (2+) (Negative); Urine Ketones 40 mg/dL (Negative); Urine Protein 30 (1+) mg/dL (Neg-Trace)
--- OUTSIDE RECORDS SUMMARY | 2024-03-25 10:25 | XMS_ITS | Clinical Summary ---
Author Organization [facility] Address [address] [place] [address] Care Team Providers Care Deckhand Maintenance Name Role Phone Ana Cortez NP Primary Care Provider [phone] Allergies Active Allergy Reactions Criticality Noted Date [...] age to complete this topic Care Teams Deckhand Maintenance Relationship Specialty Start Date End Date Ana Cortez NP [address] [address] PCP - General Family Medicine 09/21/22
--- OUTSIDE RECORDS SUMMARY | 2024-03-25 10:25 | XMS_ITS | Encounter Summary ---
Author Organization [facility] Address [address] [place] [address] Care Team Providers Care Vocational Director Name Role Phone Ana Cortez Primary Care Provider [phone] Encounter Details Date Type Department Care Team (Late st Contact Info) Description 08/11/2022 Orders Only [facility] [address] [place] [address] Brenda Willard, DO [address] [place], [place] [id number] Social History Tobacco Use Types Packs/Day Years [...] on filedocumented in this encounter Care Teams Vocational Director Relationship Specialty Start Date End Date Ana Cortez [address] [place] [address] PCP - General 04/10/23 documented as of this encounter
--- OUTSIDE RECORDS SUMMARY | 2024-03-25 10:25 | XMS_ITS | Clinical Summary ---
Author Organization [facility] Address [address] [place] [address] Care Team Providers Care Health Education Director Name Role Phone Ana Cortez Primary Care Provider [phone] Allergies Active Allergy Reactions Criticality Noted Date [...] & Plan: Will be scheduled with [facility] GI. Saw Dr. Reyes who recommended [...] Insurance [employer] Care Teams Health Education Director Relationship Specialty Start Date End Date Ana Cortez [address] [place] [address] PCP - General 04/10/23
--- OUTSIDE RECORDS SUMMARY | 2024-03-25 10:25 | XMS_ITS | Referral Summary ---
Author Organization [facility] Address [address] [place] [address] Care Team Providers Care Senior Qualitative Researcher Name Role Phone Ana Cortez Primary Care Provider [phone] Allergies Active Allergy Reactions Criticality Noted Date [...] Assessment & Plan: Will be scheduled with [facility] GI. Saw Dr. Reyes who recommended [...] Insurance [employer] Care Teams Senior Qualitative Researcher Relationship Specialty Start Date End Date Ana Cortez [address] [place], [place] [address] PCP - General 04/10/23
--- OUTSIDE RECORDS SUMMARY | 2024-03-25 10:26 | XMS_ITS | Clinical Summary ---
Author Organization [address] Address [address] [place] [phone] Phone Care Team Providers Care Supervisor Orchard Name Role Phone Genesis Davis MD Primary Care Provider [phone] Allergies Active Allergy Reactions Criticality Noted Date [...] 1:30 PM EST - 01/03/2024 11:59 PM [facility] Hospital Encounter [facility] Nuclear Medicine [address] [place] [phone] Discharge Disposition: Home or Self Care 01/03/2024 10:00 AM EST - 01/03/2024 11:59 PM [facility] Hospital Encounter [facility] Nuclear Medicine [address] [place] [phone] Spondylosis without myelopathy or radiculopathy, thoracic region; [...] APPENDECTOMY PROCEDURE: HISTORICAL APPENDECTOMY ESOPHAGOGASTRODUODENOSCOPY 03/29/15 PROCEDURE: AR EGD TRANSORAL BIOPSY SINGLE/MULTIPLE; COMMENT: mild distal [...] Info) Description 04/15/2024 1:45 PM EST Appointment [facility] Xray [address] [place] [address] Health Maintenance Due Date Last [...] Signed Date: 01/03/2024 16:06 ET Workstation ID: [id number] Transcribed By: Self Edit Transcribed Date: 01/03/2024 [...] Signed Date: 01/03/2024 16:06 ET Workstation ID: [id number] Transcribed By: Self Edit Transcribed Date: 01/03/2024 15:58 ET Narayan Ernst MD IM NM PROCEDURES Final Resul t * (ABNORMAL) Lipid panel (04/18/2018) Pathologist [facility] LDL/HDL Ratio 4 0 - 4 Triglycerides 97 0 - 150 mg/dL Cholesterol 179 0 - 200 mg/dL HDL 42 >=40 mg/dL LDL Cholesterol 118(A) 0 - 100 mg/dL Blood Venous blood specimen / Unknown Historical Provider LAB BLOOD ORDERABLES Candis l Result * Hm HIV Screening (06/14/2017) [facility] HIV Screening abstracted Historical Provider HEALTH MAINTENANCE Final Result * Pap smear (06/13/2017) 06/13/2017 Narrative HISTORICAL TESTING LAB RESULTING AGENCY - 06/20/2017 4:55 PM EDT [id number] THINPREP PAP, IMAGED AND CELL BLOCK: NEGATIVE [...] Most Recently Relevant to Health Maintenance Insurance [facility] Care Teams Supervisor Orchard Relationship Specialty Start Date End Date Genesis Davis MD [address] [place] [address] PCP - General 08/31/23
[2024-03-25 10:30] LABS: Bacteria Urine None Seen (None Seen); Hyaline Casts Urine 0-2 /LPF (0-2); UACC Culture Trigger YES; WBC Urine 0-5 /HPF (0-5)
[2024-03-25 10:32] VITALS: PULSE 74; RESP 18; O2SAT 98
[2024-03-25] MEDS: Albuterol Sulfate (0.083%) 2.5 MG/3 ML VIAL.NEB INHALE (10:32)
[2024-03-25] MEDS: iohexoL 350 MG/ML 75 ML INFUS..BTL 70 ML IV (10:51)
[2024-03-25 10:57] LABS: Influenza A PCR NEGATIVE (Negative); Influenza B PCR POSITIVE (Negative); Resp Syncy Virus RNA Qual PCR NEGATIVE (Negative); SARS COV2 PCR INHOUSE NEGATIVE (Negative)
[2024-03-25] MEDS: Morphine Sulfate 2 MG/ML CARTRIDGE IVPUSH (11:35)
--- NOTE | 2024-03-25 11:38 | PC.NURSE ---
IV in right AC infiltrated, IV placed into left AC for medication administration
[2024-03-25] MEDS: Metoclopramide HCl 10 MG/2 ML VIAL IVPUSH (14:15)
[2024-03-25 14:29] VITALS: BP 00/00; PULSE 74; RESP 18; TEMP -17.7; TEMP 0; O2SAT 95
== END 2024-03-25 14:30 | disposition home or self-care (01) ==
PROVIDERS: Physician Assistant; Emergency Provider Emergency Medicine
DX: J18.0 Bronchopneumonia, unspecified organism (principal); J10.1 Influenza due to other identified influenza virus with other respiratory manifestations; R10.2 Pelvic and perineal pain; R06.02 Shortness of breath; R11.2 Nausea with vomiting, unspecified; Z79.899 Other long term (current) drug therapy; Z03.818 Encounter for observation for suspected exposure to other biological agents ruled out
CPT/HCPCS: 0241U; 36415; 71046; 74177; 80048; 80076; 81001; 82550; 83690; 83735; 84702; 85025; 87086; 87147; 94640; 96361; 96374; 96375; 99284; J1885; J2270; J2405; J2765; Q9967

== ENCOUNTER → 2024-03-25 10:13 | Outpatient (BNV) | payer OTHER, SELFPAY | PROVIDERS: Emergency Provider Emergency Medicine; Visit Provider Radiology Diagnostic Radiology | DX: J18.0 Bronchopneumonia, unspecified organism (principal); R06.02 Shortness of breath | CPT/HCPCS: 71046; 74177 ==

== ENCOUNTER 2024-04-07 13:08 | Outpatient (AMB) | payer OTHER, SELFPAY ==
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
--- OUTSIDE RECORDS SUMMARY | 2024-04-07 15:01 | XMS_ITS | Referral Summary ---
Author Organization [facility] Address [address] [place] [address] Care Team Providers Care Sharepoint Administrator Name Role Phone Ana Cortez Primary Care Provider [phone] Allergies Active Allergy Reactions Criticality Noted Date [...] Assessment & Plan: Will be scheduled with [facility]. Saw Dr. Reyes who [...] Insurance [employer] Care Teams Sharepoint Administrator Relationship Specialty Start Date End Date Ana Cortez [address] [place], [place] [address] PCP - General 04/10/23
--- OUTSIDE RECORDS SUMMARY | 2024-04-07 15:01 | XMS_ITS | Clinical Summary ---
Author Organization [facility] Address [address] [place] [address] Care Team Providers Care Hoister Name Role Phone Ana Cortez NP Primary Care Provider [phone] Allergies Active Allergy Reactions Criticality Noted Date [...] age to complete this topic Care Teams Hoister Relationship Specialty Start Date End Date Ana Cortez NP [address] [id number] PCP - General Family Medicine 09/21/22
--- OUTSIDE RECORDS SUMMARY | 2024-04-07 15:01 | XMS_ITS | Continuity of Care Document ---
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 Calcium (Calcium Ionized)?? Magnesium Level?? Phosphorus Level?? What to do next Instructions From Your Doctor ? You were??admitted??to[facility] for Injuries seen below:? Injury: 2nd Right rib fracture pneumonia mild t10-11 compression fracture ? The following consultants have seen you during your hospitalization and these are their discharge recommendations:? Neurosurgery: No neurosurgical intervention indicated at this time. No need for spinal precautions or bracing. Soft TLSO brace can be considered PRN for comfort only. If the patient continues to??experience upper extremity numbness sensation/weakness beyond 3 weeks,she should call our neurosurgical office to schedule an appointment. ?? - continue to use your IS ?? Trauma Special Instructions? If you develop fever, chills, increased pain, nausea, vomiting, bleeding, or increased redness or pus around the wound please call the trauma surgery office at . Please take medicationsas prescribed and do not drive while on narcotic medications.? If you have any questions, please call the trauma surgery office at . ?? Please call your Primary Care Provider within 1 week for post hospital follow up and review of yourmedications. ? Orders?? to [facility] - Please make sure patient gets soft TLSO brace for comfort before she leaves, ??04/01/24 12:34:00 EST?? Scheduled Follow-Up Appointments Sunday 2:00 PM EST ?? With: Sierra AMADO, Ollie Dave Where: Trauma Surg [address] [place] [address]- Status: Pending You Need to Schedule the Following Appointments Follow Up with??Jordan LERMA, Jeremiah When:??Within 2 to 3 weeks, only if needed Where: [address] [place] [address] [place] [address]- Follow Up with??Not on Staff, PCP When:??Within 1 week Discharge Medications JAVIER REYNOLDS :1990 Visit Date:03/30/2024 Medications: Please continue your medications until treatment is completed or stopped by your provider. Medications not listed below should be discontinued. Discuss any questions related to medications with your provider. What How Much When Instructions Next Dose New Diazepam (diazepam 5 mg oral tablet) 5 Milligram Oral Twice a day as needed for Spasm Pickup at [facility] as needed follow as prescribe Changed Acetaminophen (acetaminophen 500 mg oral tablet) 1,000 Milligram Oral 3 times a day as needed for Pain , Mild not to exceed 3000 mg/ day ?? Pickup at [place] [address] as needed follow as prescribe Changed Gabapentin (gabapentin 300 mg oral capsule) 900 Milligram Oral 3 times a day Pickup at [place] [address] 04/01/24 evening Changed Gabapentin (gabapentin 300 mg oral capsule) 1 capsule Oral Twice a day as needed for Other as needed follow as prescribe Changed Gabapentin (gabapentin 600 mg oral tablet) Changed Oxycodone (oxyCODONE 5 mg oral tablet) 10 Milligram Oral Every 4 hours as needed for Pain , Severe Pickup at [place] [address] 04/01/24 7:20 PM than follow as prescribe Changed Tizanidine (tiZANidine 2 mg oral tablet) Changed Tizanidine (tiZANidine 4 mg oral tablet) 4 Milligram Oral 4 times a day as needed for Spasm not to exceed 3 doses/ day ?? Pickup at [place] [address] as needed follow as prescribe last dose give 4:45 PM Unchanged Acetaminophen/ Butalbital/ Caffeine (acetaminophen/ butalbital/ caffeine 325 mg-50 mg-40 mg oral tablet) Unchanged Albuterol (ProAir HFA 90 mcg/ inh inhalation aerosol with adapter) Unchanged Amoxicillin-Clavulanate (Augmentin 875 mg-125 mg oral tablet) 1 tab(s) Oral Every 12 hours Duration: 10 Days follow as prescibe Unchanged Amphetamine-Dextroamphetamine (amphetamine-dextroamphetamine 20 mg oral tablet) 1 tab(s) Oral Twice a day 04/01/24 evening Unchanged apremilast (Otezla Starter Pack oral tablet) Unchanged Celecoxib (celecoxib 200 mg oral capsule) 1 capsule Oral Twice a day 04/01/24 evening Unchanged Cetirizine (Aller-Dong 10 mg oral tablet) See instructions take 1 tab 12 hours prior to exam, and then again at 2 hours prior to exam ?? see instructions Unchanged Colchicine (colchicine 0.6 mg oral tablet) Unchanged Doxycycline (doxycycline hyclate 100 mg oral tablet) 1 tab(s) Oral Twice a day Duration: 10 Days 04/01/24 evening Unchanged Estradiol-Norethindrone (estradiol-norethindrone 0.5 mg-0.1 mg oral tablet) 1 tab(s) Oral Daily 04/02/24 Unchanged Lidocaine Topical (lidocaine 5% topical film) 1 patch(es) Topically Daily as needed for Pain , Mild remove after 12 hours ?? as needed follow as prescribe Unchanged Lorazepam (LORazepam 1 mg oral tablet) 1 tab(s) Oral Twice a day as needed for as needed for anxiety as needed follow as prescribe Unchanged MethylPREDNISolone (Medrol 16 mg oral tablet) See instructions Take 2 tablets [address] scan then again [address] scan. ?? see instructions Unchanged Milk of Magnesia (Milk of Magnesia 8% oral suspension) 30 Milliliter Oral Daily at Bedtime as needed for for constipation as needed follow as prescribe bedtime Unchanged Miscellaneous Rx (COMPOUND DRUG) Unchanged Multivitamin, (PNV Plus oral tablet) Unchanged Ondansetron (ondansetron 4 mg oral tablet, disintegrating) 1 tab(s) Oral Every 8 hours as needed for as needed for nausea/vomiting as needed follow as prescribe Unchanged Polyethylene Glycol 3350 (MiraLax oral powder for reconstitution) 17 gram Oral Daily dissolve in 4 to 8 oz of beverage ?? 04/02/24 Pharmacy Information [facility] 3: [address] [place] [address] [phone] Prescription Given During Visit Acetaminophen (acetaminophen 500 mg oral tablet) - 1,000 mg, By Mouth, 3 times a day, # 50 tablet, 0 Refills, not to exceed 3000 mg/day, [address] [address] [phone]?? Diazepam (diazepam 5 mg oral tablet) - 5 mg, By Mouth, 2 times a day, # 15 tablet, 0 Refills, [place] [address] [phone]?? Gabapentin (gabapentin 300 mg oral capsule) - 900 mg, By Mouth, 3 times a day, # 90 tablet, 0 Refills, [address] [address] [phone]?? Oxycodone (oxyCODONE 5 mg oral tablet) - 10 mg, By Mouth, Every 4 hours, # 24 tablet, 0 Refills, [place] [address] [phone]?? Tizanidine (tiZANidine 4 mg oral tablet) - 4 mg, By Mouth, 4 times a day, # 40 tablet, 0 Refills, not to exceed 3 doses/day, [facility], [address] [place] [address] [phone]?? Laboratory Results Below is a partial list of the most recent Laboratory test results done prior to this discharge. You may have had other tests and procedures not included in this list. Please discuss all test resultswith your provider. Est Creatinine Clearance - 214.93 mL/min (04/01/2024) Alcohol Level (03/30/2024) ???Ethanol, Serum or Plasma - NONE DETECTED Amphetamine Urine Screen (03/30/2024) ???Amphetamine Screen, Urine - POSITIVE Amylase (03/30/2024) ???Amylase - 80 units/L Barbiturate Urine Screen (03/30/2024) ???Barbiturate Screen, Urine - NONE DETECTED Basic Metabolic Panel (03/30/2024) ???Sodium - 139 mmol/L???Potassium - 2.8 mmol/L???Chloride - 100 mmol/L???Bicarbonate Level - 22 mmol/L???Anion Gap - 17 mmol/L???Glucose Level - 98 mg/dL???BUN - 8 mg/dL???Creatinine-Blood - 0.53 mg/dL???Estimated GFR Creatinine - 71 ML/MIN/1.73 M2???Calcium - 10.1 mg/dL Benzodiazepine Urine Screen (03/30/2024) ???Benzodiazepine Screen, Urine - POSITIVE BUN (04/01/2024) ???BUN - 6 mg/dL Calcium Ionized (04/01/2024) ???Calcium, Ionized pH Corrected - 1.28 mmol/L Cannabinoid Urine Screen (03/30/2024) ???Cannabinoid Screen, Urine - POSITIVE CBC w/ Differential (04/01/2024) ???WBC - 5.6 k/mm3???RBC - 3.98 m/mm3???Hgb - 11.2 Gm/dL???Hct - 32.6 %???MCV - 81.9 femtoliters???MCH - 28.1 pg???MCHC - 34.4 Gm/dL???Platelet Count - 383 k/mm3???RDW-SD - 38.8 femtoliters???MPV - 9.2 femtoliters???Nucleated RBC (Automated) - 0.0 #/100 WBC'S???Abs. NRBC - 0.0 k/mm3???Abs. Neut - 2.9 k/mm3???Abs. Lymph - 1.9 k/mm3???Abs. Mckenzie - 0.7 k/mm3???Abs. Eo - 0.1 k/mm3???Abs. Baso - 0.0 k/mm3???Neut % - 51.9 %???Lymph % - 33.3 %???Mckenzie % - 12.5 %???Eos % - 1.3 %???Baso % - 0.5 %???Imm Gran - 0.5 %???Abs. Imm Gran - 0.0 k/mm3 Cocaine Urine Screen (03/30/2024) ???Cocaine Metabolite Screen, Urine - NONE DETECTED Complete Urinalysis (03/30/2024) ? ?Appear/Color, Urine - YELLOW? ?Specific Eckley, Urine - >1.050? ?pH, Urine - 7.0? ?Albumin, Urine - TRACE???Glucose, Urine - NEGATIVE???Ketones, Urine - 2+???Bilirubin, Urine - NEGATIVE???Hemoglobin, Urine - NEGATIVE???Nitrite, Urine - NEGATIVE???Leukocyte, Urine - NEGATIVE???Urobilinogen - NORMAL? ?WBC's, Urine - <1 /HPF? ?RBC's, Urine - NONE SEEN? ?Squamous Epith - 1 /HPF? ?Mucus - SLIGHT COVID-19, RSV, and Flu A/B, Rapid PCR (03/30/2024) ???Influenza A PCR - NEGATIVE???Influenza B PCR - POSITIVE???RSV PCR - NEGATIVE???COVID-19 PCR Specimen Source - NASAL???COVID-19 PCR Result - NEGATIVE Creatinine (04/01/2024) ???Creatinine-Blood - 0.37 mg/dL???Estimated GFR Creatinine - 135 ML/MIN/1.73 M2 Electrolytes (04/01/2024) ???Sodium - 137 mmol/L???Potassium - 3.4 mmol/L???Chloride - 106 mmol/L???Bicarbonate Level - 20 mmol/L???Anion Gap - 11 mmol/L Glucose Level (04/01/2024) ???Glucose Level - 87 mg/dL Hold Red Top Tube (03/30/2024) ???Hold Red Top - SPECIMEN DISCARDED AFTER 1 WEEK Lactic Acid Level (03/30/2024) ???Lactate - 1.4 mmol/L Magnesium Level (04/01/2024) ???Magnesium - 1.7 mg/dL Opiate Screen Urine (03/30/2024) ???Opiate Screen, Urine - NONE DETECTED Phosphorus Level (04/01/2024) ???Phosphorus - 2.4 mg/dL Serum Quantitative (03/30/2024) ? ?Blood - <1 mIU/mL PT (INR) (03/30/2024) ???INR - 1.3???Protime (PT) - 12.9 seconds PTT (03/30/2024) ???APTT - 25.6 seconds Type and Screen (03/30/2024) ???Blood Type - O Positive???Antibody Screen - Negative You will be contacted within 72 hours with your results. Allergies (NKA means No Known Allergies) Adhesive Bandage Contrast Dye??(Hives, Hives) Latex??(Adhesive) erythromycin Problems Active Problems??(8) Asthma?? 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 Gestational diabetes mellitus, antepartum?? IgA deficiency?? Migraine?? Obese class I?? Sjogren's syndrome?? Education Materials Below is the list of Educational Leaflet Providered with your Discharge Instructions. Web[employer] Ignite Patient Education - Back Fracture (Compression Fracture)?? Web[employer] Ignite Patient Education - Vertebral Compression Fracture?? Web[employer] Ign[employer] Patient Education - Rib Fracture (Broken Rib)?? Valuables and Belongings I fully understand and agree that [facility] accepts no responsibility for all my [...] encouraged to send valuables and belongings home. ?? Review of Valuable and Belonging List: With patient Date for Pt to Sign Valuables/Belongings: 03/31/24 16:13:00 ?? Other Discharge Information ? Pulmonary Rehab Status?? Pulmonary Rehab Discharge Status?? Respiratory Rate: 18 br/min ? Common Emergency Awareness Tips IS [...] are strongly encouraged to quit. Please call [facility] [employer] at [phone] or [phone] ([phone]) or log in to [email or web address] for referrals to smoking cessation programs. ?? 919 Suicide & Crisis Lifeline is available 04/09 if you or someone you know needs to find a reason to keep living. By calling 622 you'll be connected to a skilled, trained counselor at a crisis center in your area. INPATIENT DISCHARGE INSTRUCTIONS SIGNATURE PAGE JAVIER REYNOLDS Location:[facility] Registration Date and Time:03/30/2024 11:10 EST Primary Care Physician: Not on Staff, PCP Attending Physician: Annel Gomez MD, I JAVIER REYNOLDS, have received the above patient education materials/instructions and have verbalized understanding. If ambulance or transport services are being used I further acknowledge being given a choice of service. ?? If you need to contact me, please call me at this number: . Patient/Global Marketing Coordinator Name: Patient/Global Marketing Coordinator Signature: Relationship to Patient: Witness Name/Signature: Date: * Rolando Melendez: PERFORM Event Display: Patient Education Leaflets Authored Date: [id number] Back Fracture (Compression Fracture) ?? 71062 Back Fracture (Compression Fracture) Your spine stretches from the base of your skull to your tailbone. It's composed of 33 bones (vertebrae) stacked on top of one another. These bones are strong enough to support the weight of your upper body. But certain injuries can damage 1 or more of the vertebrae and cause them to collapse. A collapsed bone in your spine is known as a compression fracture. As you age, your bones lose calcium. This can lead to bone loss (osteopenia) or osteoporosis. This raises the risk for compression fractures and other fractures, such as in the hip. What to expect in the ER A??healthcare provider??will ask about your health history and examine you. In some cases, you may have X-rays. You may have other tests, such as a CT scan or MRI. These tests can give detailed images of your bones and spinal cord. ?? Treatment Treatment will depend on the type and cause of the fracture. You will be given??medicine for pain. Severe fractures or those that cause nerve problems may need surgery. Many compression fractures mend on their own. ?? Follow-up As you improve, you may be given exercises to strengthen your bones. You may also need a special type of X-ray called a DEXA scan (dual-energy X-ray absorptiometry). This measures bone mineral density and bone loss. If the DEXA shows your bone density is lower than expected for your age, it means you have a risk for osteoporosis and bone fractures. If you have osteoporosis, your provider??may prescribe a??medicine to treat it. Sometimes you may have pain even after the bone has healed. In that case, your??provider??will discuss your options. ?? Causes of compression fracture Many compression fractures result from osteoporosis. This disease thins and weakens your bones so they can't withstand normal pressure and are more likely to break. Trauma from a car accident or hardfall can fracture even healthy vertebrae. In rare cases, a tumor in the bone may be the cause of a fracture. Sometimes vertebrae may fracture for unknown reasons. ?? When to call 911 Call 911 if you or someone else has been in an accident or had a fall and has neck or back pain, especially when pain occurs with any of these symptoms: ??? Can't move immediately after the incident.Keep the person still. Don't move the head or neck. Place heavy towels or rolled sheets on both sides of the neck. Or hold the head and neck still to prevent movement. ??? Loss of control over bowelsor bladder ??? Numbness or weakness ??? High fever ??? Unexplained back pain in a person with cancer ?? Last Reviewed Date: 2023 ?? [employer]. All rights reserved. This information is not intended as a substitute for professional medical care. Always follow your healthcare professional's instructions. ?? * Rolando Melendez: PERFORM Event Display: Patient Education Leaflets Authored Date: [id number] Vertebral Compression Fracture ?? [id number] Vertebral Compression Fracture You have a crushed vertebra. This is a compression fracture of 1 or more bones in your spine. This kind of break usually happens in older people with thinning of the bones called osteoporosis. It mayhappen after a ground-level fall or even with a very minor force. This can include bending forward,getting up from a seated position, coughing, or sneezing. It may also occur in young healthy people after a severe injury, such as a car accident or a fall from a height. This is generally a stable break. This means the spine doesn't need to be realigned orfused. And it usually doesn't cause any injury to the spinal cord or nerves. This injury often takes 1 to 3 months to heal. It can be treated at home with bed rest and pain medicine. Prescription or ixer-efp-[id number] pain medicine can be used to control the pain. Long-term use of pain medicine can increase the risk of side effects. This includes liver or kidney damage, gastrointestinal bleeding, constipation, or narcotic dependence. If you have chronic liver or kidney disease, or ever had a stomach ulcer or gastrointestinal bleeding, talk with your healthcare provider before using these medicines. If pain medicine is needed for more than 1 to 2 weeks, talk with your providerabout other treatment options. A back brace or abdominal binder may be prescribed. This reduces pain by limiting motion at the fracture site. If you have osteoporosis, talk with your healthcare provider about using calcium and vitamin D3 supplements. You may need prescription medicines to prevent further bone loss. If you take co rticosteroids, smoke or take nicotine products, or you had a bariatric surgery, talk to your provider about how this affects your bones. An exercise program to increase spine strength is a very important part of the treatment plan. It should start once the pain is under control. If you have severe and lasting pain, your provider may advise a procedure called a vertebral augmentation. In this procedure, a needle is used to inject a bone cement into the fractured vertebra. Home care ??? You may need to stay in bed for the first few days. But start sitting or walking as soon as possible. This will help prevent problems with prolonged bed rest such as: muscle weakness, worsening back stiffness and pain, and blood clots in the legs. ??? When in bed, try to find a comfortable position. A firm mattress is best. Try lying flat on your back with pillows under your knees. You can also try lying on your side with your knees bent up toward your chest and a pillow between your knees. ??? Don't sit for long periods of time. This puts more stress on the low back than standing or walking. ??? Apply an ice pack over the injured area for 15 to 20 minutes every 3 to 6 hours. You should do this for the first 24 to 48 hours. To make an ice pack, put ice cubes in a plastic bagthat seals at the top. Wrap the bag in a thin towel or cloth before using it. You can start with ice, then switch to heat after 2 days. Apply heat (warm shower or warm bath) for 15 to 20 minutes several times a day for muscle spasms. Some people feel best alternating ice and heat treatments. Use the one method that feels the best to you. Be careful not to injure your skin with the ice or heat treatments. Ice should never be applied directly to skin. Warm rather than hot heat should be used to protect skin areas that have decreased sensation. ??? Take pain medicine as directed. Call your healthcare provider if your pain isn't well-controlled. A dose change, stronger medicine, or other treatment options may be needed. ??? Be aware of safe lifting methods. Don't lift anything over 10 pounds until all the pain is gone. ?? Follow-up care Follow up with your healthcare provider as advised. If X-rays were taken, you'll be told of any newfindings that may affect your care. ?? Call 911 Call 911 if you have: ??? Weakness or numbness in 1 or both legs ??? Loss of control over bowels orbladder ??? Numbness in the groin area ?? When to get medical advice Call your healthcare provider right away if the pain gets worse or spreads to your arms or legs. ?? Last Reviewed Date: 2021 ?? [employer]. All rights reserved. This information is not intended as a substitute for professional medical care. Always follow your healthcare professional's instructions. ?? * Rolando Melendez: PERFORM Event Display: Patient Education Leaflets Authored Date: [id number] Rib Fracture (Broken Rib) ?? 91184 Rib Fracture (Broken Rib) Your ribs are curved bones in your chest. They help protect your lungs and expand and contract whenyou breathe. Children's ribs bend easily and can often withstand a blow or fall. But adult ribs aremore likely to break (fracture) under stress. Even coughing or a hard sneeze can fracture a rib. When to go to the emergency room (ER) Although they can be painful, most rib fractures aren't serious. But they often make it hard to cough or breathe deeply. Get to the ER or call 911 right away if you have: ??? Trouble breathing ??? Nausea, vomiting, or stomach pain with a sore or bruised rib ??? Pain that gets worse over time ??? An injury to the chest or stomach ?? What to expect in the ER Here's what will happen in the ER:? A healthcare provider will ask about your injury and examine you carefully. ??? An X-ray of your chest will likely be taken to show any major damage to ribs and lungs. But ribs can have small breaks that don't show up on X-rays, even though they still hurt. In some cases, a CT scan may be done. ??? You may be given??medicine to ease your discomfort. ??? In rare cases, rib fractures can cause a lung to collapse or lead to bleeding in the chest. In these cases, a tube will be inserted into the chest to reinflate the lung or drain the blood. ?? Follow-up You are likely to heal in 6 to 8 weeks. Most rib fractures heal on their own with no lasting effects. Call your??healthcare provider??right away if you notice any of these symptoms: ??? Increased chest pain ??? Shortness of breath ??? Fever of 100.4??F (38??C) or above, or as advised by your provider ??? Chills ??? Coughing up blood ?? Last Reviewed Date: 2023 ?? 2126-2519 [employer]. All rights reserved. This information is not intended as a substitute for professional medical care. Always follow your healthcare professional's instructions. ?? Patient Care team information Care Team Personnel Name: Pamela Dorsey MA Position: [facility] Onco RN Member Role: Primary Care Nurse Name: Not on Staff, PCP Position: [facility] Physician (General Medicine) Member Role: PCP Name: Kourtney Nielsen RN Position: [facility] RN Member Role: Primary Care Nurse Care Team Related Persons Name: ROLANDO REYNOLDS Name: JORGE REYNOLDS Insurance Providers Guarantor name: FI[employer] Health Plan Information #: 1 Payer: [employer] Member Number: [id number] Policy Number: FIOR Group Number: Health Plan Information #: 2 Payer: [employer] Member Number: [id number] Policy Number: FIOR Group Number:
--- OUTSIDE RECORDS SUMMARY | 2024-04-07 15:01 | XMS_ITS | Clinical Summary ---
Author Organization [facility] Address [address] [place] [address] Care Team Providers Care Wine Specialist Name Role Phone Ana Cortez Primary Care Provider [phone] Allergies Active Allergy Reactions Criticality Noted Date [...] Assessment & Plan: Will be scheduled with [facility]. Saw Dr. Reyes who recommended work [...] Hepatitis C Screening 1989 Pap Smear 1989 Varicella Vaccines (1 of 2 - 13+ 2-dose series) 2001 Hepatitis B Vaccines (1 of 3 - 19+ 3-dose series) 12/14 Pneumococcal Vaccine: Pediat jani (0-5 Years) and At-Risk Patients (6-50 Years) (1 of 2 - PCV) 01/07/2008 COVID-19 Vaccine (1 - 2023- season) 2023 Influenza Vaccine (#1) 2023 Alcohol/Substance Use Screening 02/13/2024 Depression Evaluation 02/13/2024 Social Drivers of Health Annual Screening 02/13/2024 DTaP,Tdap,and Td Vaccines (2 - Td or Tdap) 10/12/2025 10/13/2015 RSV Vaccine (60+ years old a nd patients) (1 - 1-dose 75+ series) 01/07/2064 Insurance [employer] MEDICAID WE[employer] MEDICAID Care Teams Wine Specialist Relationship Specialty Start Date End Date Ana Cortez [address] [place] [address] PCP - General 04/10/23
--- OUTSIDE RECORDS SUMMARY | 2024-04-07 15:01 | XMS_ITS | Patient Health Record ---
Author Organization [facility] Address [address] [place] [phone] Support Name Relationship Address Phone JAVIER REYNOLDS [...] Insured Coverage Start Date Coverage End Date [facility] [address] [place] [address] [id number] JAVIER REYNOLDS Self - patient is the insured
--- OUTSIDE RECORDS SUMMARY | 2024-04-07 15:01 | XMS_ITS | Clinical Summary ---
Author Organization [address] Address [address] [place] [id number] Phone Care Team Providers Care Supervisor Housecleaner Name Role Phone Genesis Davis MD Primary [...] Biopsies Abdominal ultrasound 03/31/17 wnl Asthma 09/24/2013 Immunizations Name Administration Dates Next Due Tdap Tetanus diptheria acell ular pertussis (Boostrix; Adacel) 7yo and older 10/13/2015 Surgical History Surgery Date Site/Laterality Comments TONSILLECTOMY PROCEDURE: HISTORICAL TONSILLECTOMY OTHER SURGICAL HISTORY PROCEDURE: REMOVAL OF TMJ CONDYLE APPENDECTOMY PROCEDURE: HISTORICAL APPENDECTOMY ESOPHAGOGASTRODUODENOSCOPY 03/29/15 PROCEDURE: DC EGD TRANSORAL BIOPSY SINGLE/MULTIPLE; COMMENT: mild distal [...] Info) Description 04/15/2024 1:45 PM EST Appointment [facility] [address] [place] [address] Health Maintenance Due Date Last Done Comments COVID-19 Vaccine (#1) 1994 Hepatitis B Vaccines (1 of 3 - 19+ 3-dose series) 01/07/2008 Pneumococcal Vaccine: Pediatrics (0 to 5 Years) and At-Risk Patients (6 to 64 Years) (1 of 2 - PCV) 01/07/2008 Cervical Cancer Screening: P ap Smear [...] Procedure Name Priority Date/Time Associated Diagnosis Comments LIPID PANEL Routine 04/18/2018 HIV SCREENING Routine 06/14/2017 PAP SMEAR Routine 06/13/2017 from Last 3 Months or Most Recently Relevant to Health Maintenance Results * (ABNORMAL) Lipid panel (04/18/2018) Pathologist [facility] LDL/HDL Ratio 4 0 - 4 Triglycerides 97 0 - 150 mg/dL Cholesterol 179 0 - 200 mg/dL HDL 42 >=40 mg/dL LDL Cholesterol 118(A) 0 - 100 mg/dL Blood Venous blood specimen / Unknown Historical Provider LAB BLOOD ORDERABLES Candis l Result * HIV Screening (06/14/2017) Pathologist [facility] HIV Screening abstracted Historical Provider HEALTH MAINTENANCE Final Result * Pap smear (06/13/2017) 06/13/2017 Narrative HISTORICAL TESTING LAB RESULTING AGENCY - 06/20/2017 4:55 PM EDT [id number] THINPREP PAP, IMAGED AND CELL BLOCK: NEGATIVE [...] Z34.81, PAP HX: NEGATIVE 06/09/2017, [place] [facility] LAB CYTOLOGY ORDERA BLES Final Result HISTORICAL TESTING LAB RESULTING AGENCY from Last 3 Months or Most Recently Relevant to Health Maintenance Insurance [facility] Care Teams Supervisor Housecleaner Relationship Specialty Start Date End Date Genesis Daivs MD [address] [place] [id number] PCP - General 08/31/23
--- OUTSIDE RECORDS SUMMARY | 2024-04-07 15:01 | XMS_ITS | Encounter Summary ---
Author Organization [facility] Address [address] [place] [address] Care Team Providers Care Human Resources Assistant Manager Name Role Phone Ana Cortez Primary Care Provider [phone] Encounter Details Date Type Department Care Team (Late st Contact Info) Description 08/11/2022 Orders Only [facility] [address] [place] [address] Brenda Willard, DO [address], [place] [phone] Social History Tobacco Use Types Packs/Day Years [...] on filedocumented in this encounter Care Teams Human Resources Assistant Manager Relationship Specialty Start Date End Date Ana Cortez [address] [place] [address] PCP - General 04/10/23 documented as of this encounter
== END 2024-04-07 13:48 | disposition home or self-care (01) ==
LOC: HO.HNS 13:08
PROVIDERS: Visit Provider Physician Assistant
DX: G56.01 Carpal tunnel syndrome, right upper limb (principal)
CPT/HCPCS: 99213

== ENCOUNTER → 2024-04-07 13:08 | Outpatient (BNVA) | payer OTHER, SELFPAY | PROVIDERS: Visit Provider Physician Assistant | DX: G56.01 Carpal tunnel syndrome, right upper limb (principal) | CPT/HCPCS: 99212 ==

== ENCOUNTER 2024-04-24 09:42 | Day surgery (SDC) | payer OTHER, SELFPAY ==
--- OUTSIDE RECORDS SUMMARY | 2024-04-08 14:58 | XMS_ITS | Clinical Summary ---
Author Organization [facility] Address [address] [place] [address] Care Team Providers Care New Order Clerk Name Role Phone Ana Cortez Primary Care Provider [phone] Allergies Active Allergy Reactions Criticality Noted Date [...] Assessment & Plan: Will be scheduled with [facility] GI. Saw Dr. Reyes who recommended [...] Insurance [employer] MEDICAID WE[employer] MEDICAID Care Teams New Order Clerk Relationship Specialty Start Date End Date Ana Cortez [address] [place] [address] PCP - General 04/10/23
--- OUTSIDE RECORDS SUMMARY | 2024-04-08 14:58 | XMS_ITS | Referral Summary ---
Author Organization [facility] Address [address] [place] [address] Care Team Providers Care Aviation Maintenance Instructor Name Role Phone Ana Cortez Primary Care Provider [phone] Allergies Active Allergy Reactions Criticality Noted Date [...] Assessment & Plan: Will be scheduled with [facility] GI. Saw Dr. Reyes who [...] Insurance [employer] MEDICAID WELL[employer] MEDICAID Care Teams Aviation Maintenance Instructor Relationship Specialty Start Date End Date Ana Cortez [address] [place], [place] [address] PCP - General 04/10/23
--- OUTSIDE RECORDS SUMMARY | 2024-04-08 14:59 | XMS_ITS | Clinical Summary ---
Author Organization [facility] Address [address] [place] [address] Care Team Providers Care Laborer Livestock Name Role Phone Ana Cortez NP Primary Care Provider Allergies Active Allergy Reactions [...] age to complete this topic Care Teams Laborer Livestock Relationship Specialty Start Date End Date Ana Cortez NP [address] [address] PCP - General Family Medicine 09/21/22
--- OUTSIDE RECORDS SUMMARY | 2024-04-08 14:59 | XMS_ITS | Patient Health Record ---
Author Organization [facility] Address [address] [place] [phone] Support Name Relationship Address Phone JAVIER REYNOLDS [...] Coverage Start Date Coverage End Date [facility] [address] [place] [address] [id number] JAVIER REYNOLDS Self - patient is the insured
--- OUTSIDE RECORDS SUMMARY | 2024-04-08 14:59 | XMS_ITS | Encounter Summary ---
Author Organization [facility] Address [address] [place] [address] Care Team Providers Care Trucking Supervisor Name Role Phone Ana Cortez Primary Care Provider [phone] Encounter Details Date Type Department Care Team (Late st Contact Info) Description 08/11/2022 Orders Only [facility] [address] [place] [address] Brenda Willard, DO [address] [place], [place] [id number] Social History Tobacco Use Types Packs/Day Years [...] on filedocumented in this encounter Care Teams Trucking Supervisor Relationship Specialty Start Date End Date Ana Cortez [address] [place] [address] PCP - General 04/10/23 documented as of this encounter
--- OUTSIDE RECORDS SUMMARY | 2024-04-08 14:59 | XMS_ITS | Clinical Summary ---
Author Organization [address] Address [address] [place] [phone] Phone Care Team Providers Care Carpet Loom Fixer Name Role Phone Genesis Davis MD Primary Care Provider [phone] Allergies Active Allergy Reactions Criticality Noted Date [...] APPENDECTOMY PROCEDURE: HISTORICAL APPENDECTOMY ESOPHAGOGASTRODUODENOSCOPY 03/29/15 PROCEDURE: OK EGD TRANSORAL BIOPSY SINGLE/MULTIPLE; COMMENT: mild distal [...] Info) Description 04/15/2024 1:45 PM EST Appointment [facility] [address] [place] [address] Health Maintenance Due Date Last [...] Results * (ABNORMAL) Lipid panel (04/18/2018) Pathologist [facility] LDL/HDL Ratio 4 0 - 4 Triglycerides 97 0 - 150 mg/dL Cholesterol 179 0 - 200 mg/dL HDL 42 >=40 mg/dL LDL Cholesterol 118(A) 0 - 100 mg/dL Blood Venous blood specimen / Unknown Historical Provider LAB BLOOD ORDERABLES Candis l Result * HIV Screening (06/14/2017) Pathologist [facility] HIV Screening abstracted Historical Provider HEALTH MAINTENANCE Final Result * Pap smear (06/13/2017) 06/13/2017 Narrative HISTORICAL TESTING LAB RESULTING AGENCY - 06/20/2017 4:55 PM EDT [id number] THINPREP PAP, IMAGED AND CELL BLOCK: NEGATIVE [...] Most Recently Relevant to Health Maintenance Insurance [facility] PLAN Care Teams Carpet Loom Fixer Relationship Specialty Start Date End Date Genesis Davis MD [address] [place] [id number] PCP - General 08/31/23
[2024-04-22 12:32] VITALS: BMI 27.6
--- NOTE | 2024-04-24 09:55 | MHC.SHP ---
Pre-Procedural Eval Section A - 24 Hr Update-Section A only Date of Service: 04/24/24 The patient is an INPATIENT: No Section B - Complete if H&P > 30 days Chief Complaint: Carpal tunnel syndrome, right upper limb Details of Present Illness: Right hand pain Allergies: Allergies Allergy/AdvReac Type Severity Reaction Status Date / Time hydroxychloroquine Allergy Intermediate Vomiting Verified 04/22/24 12:21 [From Plaquenil] adhesive tape Allergy Unknown Unknown Verified 04/22/24 12:22 erythromycin base Allergy Unknown UNKNOWN Verified 03/25/24 05:55 [ERYTHROMYCIN BASE] latex [LATEX] Allergy Unknown UNKNOWN Verified 03/25/24 05:55 acetaminophen [From Tylenol] AdvReac Unknown Unknown Verified 04/22/24 12:22 Review of Systems Sugical H&P ROS: Negative: Constitution, Cardiovascular, Respiratory, Neurological, Psychiatric, Hem-Onc, Allergic/Immunologic, Gastrointestinal, Genitourinary, Musculoskeletal, Integumentary, Endocrine and Eyes/Ears/Nose/Throat Exam Surgical H&P Exam: Normal: HEENT, Normal: Heart, Normal: Lungs, Normal: Extremities, Normal: Abdomen, Normal: Skin and Normal: Neurological (Awake, alert) Plan Diagnosis/Plan: Unchanged I have reviewed the history and physical and performed a pertinent physical examination on my patient. No changes have occurred unless specified. Carpal tunnel release, right side Time Spent With Patient Time: Total time managing care of this patient today __5__ minutes.
[2024-04-24 10:17] VITALS: BP 106/69; PULSE 76; RESP 16; TEMP 36.8; O2SAT 98; BMI 11.7
[2024-04-24 10:30] VITALS: BMI 25.8
--- NOTE | 2024-04-24 10:31 | P.CONAN_ITS ---
Documented by User: Madelin White NP 04/23/24 10:08 HPI - Anesthesia Eval Consult details Narrative: 34yo F for Right Carpal Tunnel Release Behcet disease ?POTS - eval'd by [facility] Active Problems Active Problems: All Active Problems Carpal tunnel syndrome, right (Acute) Hematuria (Acute) Dysuria (Acute) Dizziness (Acute) Tachycardia (Acute) Elbow pain (Acute) Change in bowel habit (Acute) Abdominal bloating (Acute) Vomiting (Acute) Urinary retention (Acute) Dry eyes (Acute) Transaminitis (Acute) Fibromyalgia (Acute) Uveitis (Acute) Other termite renewal inspector (current) drug therapy (Acute) Back pain (Acute) Behcet disease with multisystem involvement (Acute) Thoracic compression fracture (Acute) Myelopathy (Acute) Atrophic gastritis (Acute) Status post laparoscopic cholecystectomy (Acute) Biliary dyskinesia (Acute) Cervicalgia (Acute) Bilateral hip pain (Acute) Muscle spasticity (Acute) Asthma (Acute) Migraine headache (Acute) 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] (Acute) Past Medical History Medical History Migraine Asthma Behcet disease with multisystem involvement TMJ (temporomandibular joint syndrome) Other specified disorders of bladder 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] Personal history of malignant melanoma of skin Muscle spasm of back Chronic pain syndrome Generalized anxiety disorder Major depressive disorder, single episode, in full remission Family History Family history of problems with anesthesia: No Surgical History Surgical History Hx laparoscopic cholecystectomy (10/22/23) Hx of tonsillectomy History of appendectomy History of Problems with Anesthesia: No Social History Social History Household Members: Spouse and Family Housing: House Are you a primary palliative care nurse practitioner to a significant other at home: No Do you presently have visiting nurse or other home services: No Alcohol intake: current Alcohol intake frequency: holidays/special occasions only Patient Tobacco Use Status: Former Tobacco user Tobacco use type: Cigarette e-Cigarette/Vaping Use: Currently Using Second Hand Smoke Exposure: No Use of substances other than those prescribed or required for medical reasons: Yes Substance Use Type: Other and Caffiene Substance Use Frequency: Daily Have you been hit, kicked, punched, or otherwise hurt by someone within the past year? If so, by whom?: No Are you DNR?: No Advance Directives: No Advance Directives Information Provided: Yes Advance Directives Date on File: 10/29/23 Recently lost weight without trying: No Nutrition Risks: No Nutritional Risk Patient : No FDLMP: 03/28/2024 service: No Meds Allergies Allergy/AdvReac Type Severity Reaction Status Date / Time hydroxychloroquine Allergy Intermediate Vomiting Verified 04/22/24 12:21 [From Plaquenil] adhesive tape Allergy Unknown Unknown Verified 04/22/24 12:22 erythromycin base Allergy Unknown UNKNOWN Verified 03/25/24 05:55 [ERYTHROMYCIN BASE] latex [LATEX] Allergy Unknown UNKNOWN Verified 03/25/24 05:55 acetaminophen [From Tylenol] AdvReac Unknown Unknown Verified 04/22/24 12:22 Home Medications ?Medication ?Instructions ?Recorded ?Confirmed ?Last Taken ?Type duloxetine 30 mg capsule,delayed 30 mg PO DAILY 08/04/22 04/22/24 10/18/23 History release dextroamphetamine-amphetamine 10 20 mg PO DAILY 10/18/23 04/22/24 10/18/23 History mg tablet duloxetine 60 mg capsule,delayed 60 mg PO DAILY 10/18/23 04/22/24 10/18/23 History release mupirocin 2 % topical ointment 1 appl topical BID PRN Rash 10/18/23 04/22/24 Unknown History [id number]-[id number]-peigakkf 3.5 1 drp ophthalmic (eye) Q12H 01/02/24 04/22/24 Unknown History mg/mL-10,000 unit/mL-0.1% eye drops turmeric 400 mg capsule 400 mg PO DAILY 01/02/24 04/22/24 Unknown History glucosamine-chondroitin 250 mg-200 2 tab PO TID 01/03/24 04/22/24 Unknown History mg tablet (Osteo Bi-Flex) diazepam 5 mg tablet 5 mg PO TID PRN Anxiety 02/22/24 04/22/24 Unknown History dextroamphetamine-amphetamine 10 20 mg PO DAILY@1200 PRN attention 03/04/24 04/22/24 Unknown History mg tablet Exam Height,Weight and Vital Signs: Height 5 ft 3 in Weight 70.76 kg Pertinent Lab Results Pertinent Lab Results: Laboratory Tests 03/25/24 06:13 WBC 7.5 Hgb 13.4 Hct 36.5 L Plt Count 252 Sodium 135 Potassium 3.9 Chloride 99 Carbon Dioxide 24 BUN 8 L Creatinine 0.60 Narrative Narrative: ECHO 03/2024 Conclusions: - Normal study EKG 02/2024 EKG Details: Sinus rhythm 74 beats per minute, normal axis, normal ECG, QTC 439 milliseconds. Holter 2024 1. Patient was monitored for total period of 2 days and 22 hours 2. Baseline was normal sinus rhythm with average heart of 68 beats per minute 3. Frequent sinus bradycardia with 32.5% of time heart rate below 60 beats per minute 4. No significant bradycardia or pauses noted 5. Rare PACs noted 6. 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] Personal history of malignant melanoma of skin Muscle spasm of back Chronic pain syndrome Generalized anxiety disorder Major depressive disorder, single episode, in full remission Family History Family history of problems with anesthesia: No Surgical History Surgical History Hx laparoscopic cholecystectomy (10/22/23) Hx of tonsillectomy History of appendectomy History of Problems with Anesthesia: No Social History Social History Household Members: Spouse and Family Housing: House Are you a primary palliative care nurse practitioner to a significant other at home: No Do you presently have visiting nurse or other home services: No Alcohol intake: current Alcohol intake frequency: holidays/special occasions only Patient Tobacco Use Status: Former Tobacco user Tobacco use type: Cigarette e-Cigarette/Vaping Use: Currently Using Second Hand Smoke Exposure: No Use of substances other than those prescribed or required for medical reasons: Yes Substance Use Type: Other and Caffiene Substance Use Frequency: Daily Have you been hit, kicked, punched, or otherwise hurt by someone within the past year? If so, by whom?: No Are you DNR?: No Advance Directives: No Advance Directives Information Provided: Yes Advance Directives Date on File: 10/29/23 Recently lost weight without trying: No Nutrition Risks: No Nutritional Risk Patient : No FDLMP: 03/28/2024 service: No Meds Allergies Allergy/AdvReac Type Severity Reaction Status Date / Time hydroxychloroquine Allergy Intermediate Vomiting Verified 04/22/24 12:21 [From Plaquenil] adhesive tape Allergy Unknown Unknown Verified 04/22/24 12:22 erythromycin base Allergy Unknown UNKNOWN Verified 03/25/24 05:55 [ERYTHROMYCIN BASE] latex [LATEX] Allergy Unknown UNKNOWN Verified 03/25/24 05:55 acetaminophen [From Tylenol] AdvReac Unknown Unknown Verified 04/22/24 12:22 Home Medications ?Medication ?Instructions ?Recorded ?Confirmed ?Last Taken ?Type duloxetine 30 mg capsule,delayed 30 mg PO DAILY 08/04/22 04/22/24 10/18/23 History release dextroamphetamine-amphetamine 10 20 mg PO DAILY 10/18/23 04/22/24 10/18/23 History mg tablet duloxetine 60 mg capsule,delayed 60 mg PO DAILY 10/18/23 04/22/24 10/18/23 History release mupirocin 2 % topical ointment 1 appl topical BID PRN Rash 10/18/23 04/22/24 Unknown History gehdnmrz-rzqhymcvp-crswhkys 3.5 1 drp ophthalmic (eye) Q12H 01/02/24 04/22/24 Unknown History mg/mL-10,000 unit/mL-0.1% eye drops turmeric 400 mg capsule 400 mg PO DAILY 01/02/24 04/22/24 Unknown History glucosamine-chondroitin 250 mg-200 2 tab PO TID 01/03/24 04/22/24 Unknown History mg tablet (Osteo Bi-Flex) diazepam 5 mg tablet 5 mg PO TID PRN Anxiety 02/22/24 04/22/24 Unknown History dextroamphetamine-amphetamine 10 20 mg PO DAILY@1200 PRN attention 03/04/24 04/22/24 Unknown History mg tablet Exam Exam Date and Time: 04/24/24 1030 Height,Weight and Vital Signs: Height 5 ft 3 in Weight 70.76 kg Vital Signs Temperature 98.3 F 04/24/24 10:17 Pulse Rate 76 04/24/24 10:17 Respiratory Rate 16 04/24/24 10:17 Blood Pressure 106/69 04/24/24 10:17 Pulse Oximetry 98 04/24/24 10:17 Oxygen Delivery Method Room Air 04/24/24 10:17 Temperature 98.3 F 04/24/24 10:17 Pulse Rate 76 04/24/24 10:17 Respiratory Rate 16 04/24/24 10:17 Blood Pressure 106/69 04/24/24 10:17 Pulse Oximetry 98 04/24/24 10:17 Oxygen Delivery Method Room Air 04/24/24 10:17 Airway Mallampati Class: II TM Dist: >3cm Neck ROM: Full Loose/Missing/Broken Teeth: Yes (multiple chipped teeth but nothing loose) Heart: S1S2 Lungs: CTAB Assessment and Plan Assessment Anesthesia Assessment: Anesthesia Plan Discussed and Chart Reviewed Final Anesthetic Review Family History of Problems with Anesthesia: No History of Problems with Anesthesia: No NPO: Yes ASA Class: II Final Preanesthetic Review: No Changes in Pt Med Stat, Meds/Allgs Chart Reviewed, Consent Obtained/Reviewed and Anes Risks/Benef Reviewed Patient Risk: Low Procedure Risk: Low Anesthetic Plan Anesthetic Plan: MAC: and Agree w/ Assess. and Plan Disposition: Standard PACU
--- NOTE | 2024-04-24 10:36 | PC.NURSE ---
at bedside. Per Dr. Boykin, RN to disregard existing PO and IV orders for pt. No medications administered per Dr. Boykin.
--- NOTE | 2024-04-24 10:37 | W.PM.OPN ---
Operative Note Operative Note Date of Service: 04/24/24 Narrative: Diagnosis: Right carpal tunnel syndrome Procedure: Right median nerve release Surgeon: Elias Boykin MD PhD Description procedure: This 34-year-old female had a right-sided carpal tunnel release done 3 years ago another institution. The symptoms returned and EMG shows severe carpal tunnel syndrome. She was offered a reexploration and decompression of the nerve root. The patient was offered a decompression of the median nerve. The procedure complications were explained. The patient was consented. She was brought to the operating room, where moderate sedation was applied. Prepping and draping was done followed by time-out. Marcaine was injected into the mid volar region. A midvolar incision was made. The ligamentum carpi transversum was opened sharply until the median nerve became visible. A Metzenbaum scissor was used to decompress the median nerve proximally and distally over its trajectory. Significant compression was present. Hemostasis was done. The incision was closed with 3 interrupted sutures. A compressive DANA wrap was used for hemostasis. All sponge and needle counts were correct. Patient was transported to the recovery room. Anesthesia: Moderate sedation and local anesthetic Blood loss: Minimal Complications: None Disposition: Discharge home
[2024-04-24] MEDS: Lactated Ringers 1,000 ML 100 ML IVCONT (10:38)
[2024-04-24 10:44] LABS: UPreg QC Valid YES; Urine Pregnancy NEGATIVE (NEGATIVE)
--- NOTE | 2024-04-24 10:49 | P.DS_ITS ---
DS: Providers Provider Date of Service: 04/24/24 Date of discharge: 04/24/24 Primary care physician: Unknown Physician Admitting clinician: Elias Boykin DS: Diagnosis Discharge Diagnosis (1) Carpal tunnel syndrome, right: Status: Acute DS: Summary Time Attestation Discharge Coordination Time (in mins): 4 Quality: Safe Use of Opioids Does Pt have an Active Cancer Diagnosis on the Problem List?: No Quality: Stroke Does the patient have a stroke diagnosis?: No Physical Exam Vital Signs: Vital Signs: Last Vital Signs Temp 98.3 F 04/24/24 10:17 Pulse 76 04/24/24 10:17 Resp 16 04/24/24 10:17 BP 106/69 04/24/24 10:17 Pulse Ox 98 04/24/24 10:17 O2 Del Method Room Air 04/24/24 10:17 BMI result Body Mass Index 11.7 DS: Data Data Completed and Pending Completed studies during hospitalization [Text1]: Procedures Excision of Duodenum, Via Natural or Artificial Opening Endoscopic, Diagnostic (10/20/23) Excision of Mesenteric Lymphatic, Percutaneous Endoscopic Approach, Diagnostic (10/20/23) Excision of Stomach, Pylorus, Via Natural or Artificial Opening Endoscopic, Diagnostic (10/20/23) Resection of Gallbladder, Percutaneous Endoscopic Approach (10/20/23) Labs on day of discharge: Laboratory Results - last 24 hr 04/24/24 09:50 Urine Test NEGATIVE Discharge Plan Discharge Patient Disposition: Home, Self-Care Referrals: Physician,Unknown J [Primary Care Provider] - 1 Week Discharge Medications: Continued Motegrity 1 mg tablet 1 mg PO DAILY 90 Days Qty: 90 0RF folic acid 1 mg tablet 1 mg PO DAILY Qty: 90 3RF Magic Mouthwash Diphen/Lido/Antacid 1:1:1 240 mL suspension 240 ml PO .COMPLEX Qty: 240 2RF Rx Instructions: 240 mL orally; Lidocaine Viscous 2 % 80mL; diphenhydramine 12.5 mg/5 mL 80mL; aluminum-mag hydrox-simeth 641bw-[id number]-41oz/5mL 80mL Swish, gargle and split 5 mL every 4-6 hours as needed. ondansetron 4 mg tablet,disintegrating 4 mg PO BID PRN (Reason: nausea and vomiting) Qty: 10 1RF Otezla Starter 10 mg (4)-20 mg (4)-30 mg (47) tablets,dose pack See Rx Instructions PO PER PKG DIR Qty: 55 0RF Rx Instructions: PA approved. Please dispense. Authorization number: [id number]. Otezla 30 mg tablet 30 mg PO BID Qty: 180 2RF Rx Instructions: Start after starter kit. Dispense 90 day supply. PA needed. tizanidine 2 mg tablet 2 mg PO Q8H PRN (Reason: for muscle spasm) Qty: 90 2RF dextroamphetamine-amphetamine 10 mg tablet 20 mg PO DAILY Rx Instructions: TAKE 2 TABLETS BY MOUTH EVERY MORNING AND TAKE 1 TABLET EVERY AFTERNOON mupirocin 2 % ointment 1 appl topical BID PRN (Reason: Rash) duloxetine 60 mg capsule,delayed release(DR/EC) 60 mg PO DAILY famotidine 20 mg Tablet 20 mg PO BID Qty: 1 0RF oxycodone 5 mg Tablet 10 mg PO Q6H PRN (Reason: Pain, Moderate(Pain Scale 4-6)) Qty: 7 0RF Rx Instructions: Partial Fill upon patient request. dextroamphetamine-amphetamine 10 mg tablet 20 mg PO DAILY@1200 PRN (Reason: attention) doxycycline hyclate 100 mg tablet 100 mg PO BID 7 Days Qty: 14 0RF amoxicillin-pot clavulanate 875-125 mg tablet 1 tab PO BID 7 Days Qty: 14 0RF lidocaine [Lidoderm] 5 % adhesive patch,medicated 1 patch topical DAILY MDD remove after 12 hours PRN (Reason: pain) Qty: 30 0RF Rx Instructions: leave on most painful area for up to 12 hrs dicyclomine 10 mg capsule 10 mg PO BID PRN (Reason: abdominal pain) 90 Days Qty: 180 0RF duloxetine 30 mg capsule,delayed release(DR/EC) 30 mg PO DAILY neomycin-polymyxin B-dexameth 3.5mg/mL-10,000 unit/mL-0.1 % drops,suspension 1 drp ophthalmic (eye) Q12H turmeric 400 mg capsule 400 mg PO DAILY glucosamine-chondroitin [Osteo Bi-Flex] 250-200 mg tablet 2 tab PO TID Rx Instructions: give after food/meal celecoxib [Celebrex] 200 mg capsule 200 mg PO BID Qty: 60 2RF Rx Instructions: Take with food. colchicine 0.6 mg tablet 0.6 mg PO BID Qty: 60 5RF gabapentin 600 mg tablet 900 mg PO TID Qty: 135 5RF diazepam 5 mg tablet 5 mg PO TID PRN (Reason: Anxiety) Discharge Orders: Discharge Order (Routine); Ordered 04/24/24 Ordered By: Tenzin Steen Diet: Advance to usual diet Activity on Discharge: As tolerated Activity Restrictions/Additional Instructions: after your carpal tunnel surgery we ask that you observe the following alexandre delines. You may remove your zayda wrap on post op day 3, as well as the dressing underneath it There are sutures in your wound, and you will need these removed 10-14 days after surgery. Please call the office to arrange this visit, You can use your hand as much as you like, however, please avoid straining or heavy lifting It will help swelling in your hand to keep it elevated when you are not using it. You can shower on post op day 1, but please keep wound dry You can drive when you feel comfortable and are off narcotics If you experience any signs of infection such as fever, chills or redness/discharge from your wound,please call office right away Print Language: Sudanese
[2024-04-24 11:35] VITALS: BP 91/42; PULSE 80; RESP 12; TEMP 36.1; O2SAT 97
[2024-04-24 11:50] VITALS: BP 92/45; PULSE 65; RESP 16; O2SAT 100
[2024-04-24 12:05] VITALS: BP 91/54; PULSE 63; RESP 16; O2SAT 100
[2024-04-24] MEDS: Haloperidol Lactate 5 MG/ML VIAL 1 MG IVPUSH (12:07)
[2024-04-24] MEDS: oxyCODONE HCl Immed Release 5 MG TABLET PO (12:10)
[2024-04-24 12:20] VITALS: BP 101/63; PULSE 65; RESP 16; TEMP 36.1; O2SAT 100
== END 2024-04-24 13:16 | disposition home or self-care (01) ==
PROVIDERS: Nurse Practitioner; Visit Provider Neurological Surgery
PROC: (CPT 64721; principal; 2024-04-24 11:40)
DX: G56.01 Carpal tunnel syndrome, right upper limb (principal); M79.641 Pain in right hand; R20.0 Anesthesia of skin; R20.2 Paresthesia of skin; G89.4 Chronic pain syndrome; M25.831 Other specified joint disorders, right wrist; M54.9 Dorsalgia, unspecified; Z87.828 Personal history of other (healed) physical injury and trauma; Z98.890 Other specified postprocedural states; M35.2 Behcet's disease; Q79.60 Ehlers-Danlos syndrome, unspecified; F32.5 Major depressive disorder, single episode, in full remission; F41.1 Generalized anxiety disorder; Z79.891 Long term (current) use of opiate analgesic; Z79.899 Other long term (current) drug therapy; Z99.89 Dependence on other enabling machines and devices; Z88.1 Allergy status to other antibiotic agents; Z88.8 Allergy status to other drugs, medicaments and biological substances; Z91.040 Latex allergy status; L23.1 Allergic contact dermatitis due to adhesives
CPT/HCPCS: 64721; 81025; J0690; J1630; J2003; J2250; J3010

== ENCOUNTER → 2024-04-24 09:42 | Outpatient (BNV) | payer OTHER, SELFPAY | PROVIDERS: Visit Provider Physician Assistant | DX: G56.01 Carpal tunnel syndrome, right upper limb (principal) | CPT/HCPCS: 64721; 99499 ==

== ENCOUNTER 2024-05-01 12:38 | Outpatient (AMB) | payer OTHER, SELFPAY ==
--- NOTE | 2024-05-01 12:58 | HO.SPINEOV ---
Intake Visit Reasons: incision check Intake Note: Ms. Pandya is here today for an incision check. Drawbridge Tender Required: No Allergies hydroxychloroquine [From Plaquenil] Allergy (Intermediate, Verified 05/01/24 13:01) Vomiting adhesive tape Allergy (Unknown, Verified 05/01/24 13:01) Unknown erythromycin base [ERYTHROMYCIN BASE] Allergy (Unknown, Verified 05/01/24 13:01) UNKNOWN latex [LATEX] Allergy (Unknown, Verified 05/01/24 13:01) UNKNOWN acetaminophen [From Tylenol] Adverse Reaction (Unknown, Verified 05/01/24 13:01) Unknown Assessment & Plan Assessment & Plan (1) Carpal tunnel syndrome, right: Code(s): G56.01 - Carpal tunnel syndrome, right upper limb Category: Medical Plan Mrs Pandya came in today to have me look at her wound. She had a carpal tunnel done on her right hand about a week ago. She feels as though it is getting more swollen and irritated. The preoperative symptoms that she had with the carpal tunnel are improved. There is a little bit of pinkness around the external suture area but no overt redness or discharge that I can see. It might just be skin irritation from the sutures. 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 I told her she does not have to start it right now but if it starts to get more reddened over the course of the next few days she should start the prescription. I did remove her sutures while she was here today because the wound looked completely healed up. Tenzin Boykin MD, PhD [facility] Coding Level of Care Code Global (57403) Diagnoses Carpal tunnel syndrome, right G56.01
--- OUTSIDE RECORDS SUMMARY | 2024-05-01 15:01 | XMS_ITS | Patient Health Record ---
Author Organization [facility] Address [address] [place] [phone] Support Name Relationship Address Phone JAVIER REYNOLDS [...] Insured Coverage Start Date Coverage End Date [facility] [address] [place] [address] [phone] [id number] JAVIER REYNOLDS Self - patient is the insured
--- OUTSIDE RECORDS SUMMARY | 2024-05-01 15:01 | XMS_ITS | Clinical Summary ---
Author Organization [facility] Address [address] [place] [address] Care Team Providers Care Heel Sprayer First Name Role Phone Ana Cortez Primary Care Provider [phone] Allergies Active Allergy Reactions Criticality Noted Date [...] Assessment & Plan: Will be scheduled with [facility] GI. Saw Dr. Reyes who [...] (#1) 2023 Alcohol/Substance Use Screening 02/13/2024 Depression Screening and Follow-Up 02/13/2024 Social Drivers of Health Annual Screening 02/13/2024 DTaP,Tdap,and Td Vaccines (2 - Td or Tdap) 10/12/2025 10/13/2015 RSV Vaccine (60+ years old a nd patients) (1 - 1-dose 75+ series) 01/07/2064 Insurance [employer]ICA[employer] Care Teams Heel Sprayer First Relationship Specialty Start Date End Date Ana Cortez [address] [place] [address] PCP - General 04/10/23
--- OUTSIDE RECORDS SUMMARY | 2024-05-01 15:01 | XMS_ITS | Referral Summary ---
Author Organization [facility] Address [address] [place] [address] Care Team Providers Care Labour Market Economist Name Role Phone Ana Cortez Primary Care Provider Allergies Active Allergy Reactions [...] Assessment & Plan: Will be scheduled with [facility] GI. Saw Dr. Reyes who [...] Insurance [employer] Care Teams Labour Market Economist Relationship Specialty Start Date End Date Ana Cortez [address] [place], [place] [id number] PCP - General 04/10/23
--- OUTSIDE RECORDS SUMMARY | 2024-05-01 15:01 | XMS_ITS | Clinical Summary ---
Author Organization [facility] Address [address] [place] [address] Care Team Providers Care Cable Dispatcher Name Role Phone Ana Cortez NP Primary Care Provider [phone] Allergies Active Allergy Reactions Criticality Noted Date [...] age to complete this topic Care Teams Cable Dispatcher Relationship Specialty Start Date End Date Ana Cortez NP [address] [address] PCP - General Family Medicine 09/21/22
--- OUTSIDE RECORDS SUMMARY | 2024-05-01 15:01 | XMS_ITS | Clinical Summary ---
Author Organization [address] Address [address] [place] [phone] Phone Care Team Providers Care Fundraising Officer Name Role Phone Genesis Davis MD Primary Care Provider [phone] Allergies Active Allergy Reactions Criticality Noted Date [...] APPENDECTOMY PROCEDURE: HISTORICAL APPENDECTOMY ESOPHAGOGASTRODUODENOSCOPY 03/29/15 PROCEDURE: ND EGD TRANSORAL BIOPSY SINGLE/MULTIPLE; COMMENT: mild distal [...] 09/07/2023 3:45 PM EDT Plan of Treatment Health Maintenance [...] Maintenance Results * (ABNORMAL) Lipid panel (04/18/2018) [facility] [address] LDL/HDL Ratio 4 0 - 4 Triglycerides 97 0 - 150 mg/dL Cholesterol 179 0 - 200 mg/dL HDL 42 >=40 mg/dL LDL Cholesterol 118(A) 0 - 100 mg/dL Blood Venous blood specimen / Unknown us Historical Provider MD LAB BLOOD ORDERABLES Candis l Result * HIV Screening (06/14/2017) [facility] [address] HIV Screening abstracted us Historical Provider HEALTH MAINTENANCE Final Result * Pap smear (06/13/2017) 06/13/2017 Narrative HISTORICAL TESTING LAB RESULTING AGENCY - 06/20/2017 4:55 PM EDT [id number] THINPREP PAP, IMAGED AND CELL BLOCK: NEGATIVE FOR SQUAMOUS INTRAEPITHELIAL LESION AND MALIGNANCY ??. PARTIALLY OBSCURING LUBRICANT IS PRESENT. BORDERLINE/LIMITED SQUAMOUS CELLULARITY. ELIZABETH LATHAM(ASCP) (CASE SCREENED 06 18 2017) [facility] [...] Most Recently Relevant to Health Maintenance Insurance [facility] [employer] Care Teams Fundraising Officer Relationship Specialty Start Date End Date Genesis Davis MD [address] [place] [id number] PCP - General 08/31/23
--- OUTSIDE RECORDS SUMMARY | 2024-05-01 15:01 | XMS_ITS ---
Author Name [facility] Organization Unknown Encounters Encounter Type Encounter Reason Primary Diagnosis Location Date Emergency Myalgia, unspecified site Myalgia, unspecified site [facility] 09/21/2022 Care Team Organization Name Specialty Phone Email Start Date End Da steve [facility] 03/04/2023 [facility] 2022 [facility] 09/2109/21/2022
--- OUTSIDE RECORDS SUMMARY | 2024-05-01 15:01 | XMS_ITS | Encounter Summary ---
Author Organization [facility] Address [address] [place] [address] Care Team Providers Care Drawer In Jacquard Loom Name Role Phone Ana Cortez Primary Care Provider [phone] Encounter Details Date Type Department Care Team (Late st Contact Info) Description 08/11/2022 Orders Only [facility] [address] [place] [address] Brenda Willard, DO [address], [place] [id number] Social History Tobacco Use Types Packs/Day Years [...] on filedocumented in this encounter Care Teams Drawer In Jacquard Loom Relationship Specialty Start Date End Date Ana Cortez [address] [place] [address] PCP - General 04/10/23 documented as of this encounter
--- OUTSIDE RECORDS SUMMARY | 2024-05-01 15:01 | XMS_ITS | Continuity of Care Document ---
Author Organization [facility] Address [address] [place] [address] [address] [place] [address]- Care Team Providers Care Manager Of Corporate Name Role Phone Not on Staff, PCP Primary Care Physician Unavail able [place] [facility] [place] 04/16/24 - 04/23/[address] [place] [address]- Attending Physician: Sierra AMADO, Ollie Dave Encounter Type: Office Visit Allergies, Adverse Reactions, Alerts Substance Criticality Severity Reaction Reaction Severity Status erythromycin Active Adhesive Bandage Act victor manuel Contrast Dye Hives Hives Active Latex Adhesive Active Medications Aller-Dong 10 mg oral tablet See Instructions, take 1 tab 12 hours prior to exam, and then again at 2 hours prior to exam, # 2 tablet, 0 Refills, Maintenance, 03/06/22 2:34:00 PM EST, [id number], Partial fill upon patient request if the [...] Date: 03/30/24 Status: Ordered Repeat number: 1 celecoxib 200 mg oral capsule 1 capsule = 200 mg, By Mouth, 2 times a day, 0 Refills, Maintenance, 03/30/24 3:57:00 PM EST, Capsule, Partial fill upon patient request if the prescription is for a schedule II opioid drug. Start Date: 03/30/24 Status: Ordered Repeat number: 1 clobetasol 0.05% topical gel Topically, 2 times a day, 0 Refills, Maintenance, 04/16/24 2:29:00 PM EST, Partial fill upon patient request if the prescription is for a schedule II opioid drug. Start Date: 04/16/24 Status: Ordered Repeat number: 1 colchicine 0.6 mg oral tablet Refills 0, Maintenance, 03/30/24 3:58:00 PM EST, Partial fill upon patient request if the prescription is for a schedule II opioid drug. Start Date: 03/30/24 Status: Ordered Repeat number: 1 COMPOUND DRUG COMPOUND DRUG, 0 Refills, Maintenance, 03/30/24 3:58:00 PM EST Start Date: 03/30/24 Status: Ordered Repeat number: 1 desoximetasone 0.25% topical ointment Topically, 2 times a day, 0 Refills, Maintenance, 04/16/24 2:28:00 PM EST, Partial fill upon patient request if the prescription is for a schedule II opioid drug. Start Date: 04/16/24 Status: Ordered Repeat number: 1 dicyclomine 10 mg oral capsule 180 capsule, 0 Refill(s), 0 Refills, 04/16/24 2:25:00 PM EST, Partial fill upon patient request if the prescription is for a schedule II opioid drug. Start Date: 04/16/24 Status: Ordered Repeat number: 1 duloxetine 30 mg oral enteric coated capsule 90 each, 0 Refill(s), TAKE 1 CAPSULE BY MOUTH EVERY DAY IN THE EVENING, 0 Refills, 04/16/24 2:25:00 PM EST, Partial fill upon patient request if the prescription is for a schedule II opioid drug. Start Date: 04/16/24 Status: Ordered Repeat number: 1 duloxetine 60 mg oral enteric coated capsule 90 each, 0 Refill(s), TAKE 1 CAPSULE BY MOUTH EVERY DAY IN THE MORNING, 0 Refills, 04/16/24 2:25:00 PM EST, Partial fill upon patient request if the prescription is for a schedule II opioid drug. Start Date: 04/16/24 Status: Ordered Repeat number: 1 gabapentin 300 [...] 12:27:00 PM EST, Route to Pharmacy Electronically, [facility], Partial fill upon patient [...] Date: 03/30/24 Status: Ordered Repeat number: 1 Magic Mouth Wash 0 Refills, Maintenance, 04/16/24 2:29:00 PM EST, Partial fill upon patient request if the prescription is for a schedule II opioid drug. Start Date: 04/16/24 Status: Ordered Repeat number: 1 MiraLax oral powder for reconstitution = 17 Gm, By Mouth, Daily, dissolve in 4 to 8 oz of beverage, # 238 Gm, 0 Refills, Maintenance, 09/02/23 10:35:00 PM EDT, REC Powder, [facility] #[id number], Partial fill upon patient request if the prescription is for a schedule II opioid drug., 17 Gm By Mouth Daily,Instr:dissolve in 4 to 8 oz of beverage, 163, cm, 12/30/22 10:29:00 EST, Height, 86, kg, 09/02/23 19:18:00 EDT, Dry Weight Start Date: 09/02/23 Status: Ordered Quantity: 238.0 Unit: g Repeat number: 1 mupirocin 2% topical cream Topically, 3 times a day, 0 Refills, Maintenance, 04/16/24 2:27:00 PM EST, Partial fill upon patient request if the prescription is for a schedule II opioid drug. Start Date: 04/16/24 Status: Ordered Repeat number: 1 ondansetron 4 mg oral [...] number: 1 oxyCODONE 5 mg oral tablet 30 each, 0 Refill(s), TAKE 1 TO 2 TABLETS BY MOUTH 3 TIMES A DAY NEEDED FOR SEVERE PAIN, Refills0, 04/16/24 2:25:00 PM EST, Partial fill upon patient request if the prescription is for a schedule II opioid drug. Start Date: 04/16/24 Status: Ordered Repeat number: 1 Pred Forte acetate 1% suspension 1 drops, 4 times a day, 0 Refills, Maintenance, 04/16/24 2:27:00 PM EST, Partial fill upon patient request if the prescription is for a schedule II opioid drug. Start Date: 04/16/24 Status: Ordered Repeat number: 1 ProAir HFA 90 mcg/inh inhalation aerosol with adapter Refills 0, Maintenance, 11/21/17 7:52:54 AM EDT Start Date: 11/21/17 Status: Ordered Repeat number: 1 Restasis 0.05% ophthalmic emulsion 1 drops, Every 12 hours, 0 Refills, Maintenance, 04/16/24 2:26:00 PM EST, Partial fill upon patient request if the prescription is for a schedule II opioid drug. Start Date: 04/16/24 Status: Ordered Repeat number: 1 tiZANidine 2 [...] 12:27:00 PM EST, Route to Pharmacy Electronically, [facility], Partial fill upon patient request if the prescription is for a schedule II opioid drug., 173, cm, 04/01/24 6:25:00 EST, Height, 67, kg, 03/31/24 17:46:00 EST, Dry Weight Start Date: 04/01/24 Status: Ordered Quantity: 40.0 Unit: tablet Repeat number: 1 Tobradex 0.1%-0.3% ointment 0.5 inches, Eyes, Both, 4 times a day, 0 Refills, Maintenance, 04/16/24 2:27:00 PM EST, Partial fill upon patient request if the prescription is for a schedule II opioid drug. Start Date: 04/16/24 Status: Ordered Repeat number: 1 Problem List Condition Confirmation Course Effective Dates Status Health [facility] Informant Asthma Confirmed Active Behcet's syndrome Confirmed Active Kings-Danlos syndrome Confirmed Active Gestational diabetes mellitus, antepartum Confirmed Active IgA deficiency Confirmed Active Migraine Confirmed Active Sjogren's syndrome Confirmed Active Vital Signs Most recent to oldest [Reference Range]: 1 Height 173 cm (04/16/24 2:30 PM) Weight 69.0 kg (04/16/24 2:30 PM) Pulse Rate [55-90 bpm] 64 bpm (04/16/24 2:30 PM) Body Mass Index [18.5-24.99 kg/m2] 23.05 kg/m2 (04/16/24 2:30 PM) Blood Pressure [90-138/55-84 mm Hg] 123/ 86mm Hg (04/16/24 2:30 PM) Temperature [96.8-100.4 DegF] 97.4 DegF (04/16/24 2:30 PM) Blood pressure sites Arm, left (04/16/24 2:30 PM) Temperature Route Temporal (04/16/24 2:30 PM) Weight Obtained Via Standing scale (04/16/24 2:30 PM) Social History Social History Type Response Smoking Status Former smoker, quit more than 30 days ago; Other: quit 2015; entered on: 01/26/22 Sex Sex Representation Female (finding) Note * Melissa Jaime: PERFORM Event Display: Patient Education/Instruction Authored Date: Ambulatory Adult Visit Summary [facility] [address] [place] [address] Name: JAVIER REYNOLDS : 1990?? Visit: 04/16/2024 14:00?? Ambulatory Visit Instructions ?? Your Care Team Primary Care Provider Not on Staff, PCP?? This Visit Provider Sierra AMADO, Ollie Dave Vitals Signs Temperature: 97.4 DegF Height: 173 cm Pulse Rate: 64 bpm Weight: 69 kg Systolic Blood Pressure: 123 mm Hg Body Mass Index: 23.05 kg/m2 Diastolic Blood Pressure:??86 mm Hg??High Body surface area: 1.82 Medications The list below reflects the information in our records and provided by you today along with any changes made during this visit. Please continue your medications until treatment is completed or stopped by your provider. If this is different from the information you have or there are other questions,please contact the prescribing provider. What How Much When Instructions Unchanged Albuterol (ProAir HFA 90 mcg/ inh inhalation aerosol withadapter) Unchanged Amphetamine-Dextroamphetamine (amphetamine-dextroamphetamine 20 mg oral tablet) 1 tab(s) Oral Twice a day Unchanged apremilast (Otezla Starter Pack oral tablet) Unchanged Celecoxib (celecoxib 200 mg oral capsule) 1 capsule Oral Twice a day Unchanged Cetirizine (Aller-Dong 10 mg oral tablet) See instructions take 1 tab 12 hours prior to exam, and then again at 2 hours prior to exam ?? Unchanged Clobetasol Topical (clobetasol 0.05% topical gel) Topically Twice a day Unchanged Colchicine (colchicine 0.6 mg oral tablet) Unchanged Cyclosporine Ophthalmic (Restasis 0.05% ophthalmic emulsion) 1 Drops Every 12 hours Unchanged Desoximetasone Topical (desoximetasone 0.25% topical ointment) Topically Twice a day Unchanged Dexamethasone / Tobramycin Ophthalmic (Tobradex 0.1%-0.3% ointment) 0.5 Inch Both eyes 4 times a day Unchanged Dicyclomine (dicyclomine 10 mg oral capsule) 180 capsule, 0 Refill(s) ?? Unchanged Duloxetine (duloxetine 30 mg oral enteric coated capsule) 90 each, 0 Refill(s), TAKE 1 CAPSULE BY MOUTH EVERY DAY IN THE EVENING ?? Unchanged Duloxetine (duloxetine 60 mg oral enteric coated capsule) 90 each, 0 Refill(s), TAKE 1 CAPSULE BY MOUTH EVERY DAY IN THE MORNING ?? Unchanged Gabapentin (gabapentin 300 mg oral capsule) 1 capsule Oral Twice a day as needed for Other Unchanged Gabapentin (gabapentin 300 mg oral capsule) 900 Milligram Oral 3 times a day Unchanged Gabapentin (gabapentin 600 mg oral tablet) Unchanged Lidocaine Topical (Magic Mouth Wash) Unchanged Miscellaneous Rx (COMPOUND DRUG) Unchanged Mupirocin Topical (mupirocin 2% topical cream) Topically 3 times a day Unchanged Ondansetron (ondansetron 4 mg oral tablet, disintegrating) 1 tab(s) Oral Every 8 hours as needed for as needed for nausea/vomiting Unchanged Oxycodone (oxyCODONE 5 mg oral tablet) 30 each, 0 Refill(s), TAKE 1 TO 2 TABLETS BY MOUTH 3 TIMES A DAY NEEDED FOR SEVERE PAIN ?? Unchanged Polyethylene Glycol 3350 (MiraLax oral powder for reconstitution) 17 gram Oral Daily dissolve in 4 to 8 oz of beverage ?? Unchanged PrednisoLONE Ophthalmic (Pred Forte acetate 1% suspension) 1 Drops 4 times a day Unchanged Tizanidine (tiZANidine 2 mg oral tablet) Unchanged Tizanidine (tiZANidine 4 mg oral tablet) 4 Milligram Oral 4 times a day as needed for Spasm not to exceed 3 doses/ day ?? Medications and Immunizations Administered Medications Given During Visit No medications given during this visit.?? Allergies (NKA means No Known Allergies) Adhesive Bandage Contrast Dye??(Hives, Hives) Latex??(Adhesive) erythromycin Common Emergency Awareness Tips IS IT A [...] are strongly encouraged to quit. Please call [facility] at [phone] or [phone]) or log in to [email or web address] for referrals to smoking cessation programs. ?? The National Suicide Prevention Hotline is available 04/09 if you or someone you know needs to find a reason to keep living. By calling 6-981-031-wildcraft (3586) you'll be connected to a skilled, trained counselor at a crisis center in your area. [facility] You can view and manage your care through the patient portal or by using a health care bill of your choosing. [employer] is a website that allows you to securely view your medical information including your hospital discharge summary, office visit summaries, medications and follow-up visits. You can also request appointments, renew medications, and request access to your medical information using a health care bill of your choosing, or just ask a question. You can enroll at [email or web address] or register during your next office visit. [facility], in keeping with [facility] guidance, no longer requires face [...] medical provider or home test kit. ?? Disclaimer: The information provided is of a general nature and is intended to be used in conjunction with the recommendations and advice of your health care practitioner. Every effort has been made to ensure that the information provided is accurate and complete at the time it is provided to you however, as your needs change, or, as new information becomes available, different or additional instructions may be required. ?? If you have questions, please consult with your primary care provider or pharmacist, as appropriate. This information is not intended to serve as substitution for assessment and evaluation by a qualified health care provider. If you do not have a primary care provider, you may find a [facility] provider by calling [facility] at [phone]. Patient Care team information Care Team Personnel Name: Pamela Dorsey MA Position: [facility] Onco RN Member Role: Primary Care Nurse Name: Not on Staff, PCP Position: [facility] Physician (General Medicine) Member Role: PCP Name: Kourtney Nielsen RN Position: [facility] RN Member Role: Primary Care Nurse Care Team Related Persons Name: DANNY REYNOLDS Name: JORGE REYNOLDS Insurance Providers Guarantor name: Health Plan Information #: 1 Payer: [employer] Member Number: [id number] Policy Number: Group Number: Health Plan Information #: 2 Payer: [employer] Member Number: [id number] Policy Number: Group Number: Health Plan Information #: 3 Payer: [employer] Member Number: [id number] Policy Number: Group Number: Health Plan Information #: 4 Payer: [employer] Member Number: Policy Number: Group Number:
== END 2024-05-01 13:47 | disposition home or self-care (01) ==
LOC: HO.HNS 12:39
PROVIDERS: Visit Provider Physician Assistant
DX: G56.01 Carpal tunnel syndrome, right upper limb (principal)
CPT/HCPCS: 99024

== ENCOUNTER → 2024-05-01 12:38 | Outpatient (BNVA) | payer OTHER, SELFPAY | PROVIDERS: Visit Provider Physician Assistant | DX: Z48.811 Encounter for surgical aftercare following surgery on the nervous system (principal); Z98.890 Other specified postprocedural states | CPT/HCPCS: 99212 ==

== ENCOUNTER 2024-05-07 09:44 | Outpatient (REF) | payer OTHER, SELFPAY ==
[2024-05-07 12:53] LABS: MANUAL DIFF FLAG NO
[2024-05-07 13:15] LABS: Basophils Absolute Auto 0.1 X10*3/uL (0.0-0.2); Basophils Percent Auto 0.8 % (0-2); Eosinophils Absolute Auto 0.2 X10*3/uL (0.0-0.4); Hematocrit 36.3 % (37.0-47.0); Hemoglobin 12.2 g/dl (12.0-16.0); Imm Gran Abs Auto 0.02 X10*3/uL (0.00-0.03); Imm Gran Pct Auto 0.3 % (0.0-0.4); Lymphocytes Percent Auto 30.8 % (20-40); Mean Corpuscular HGB Conc 33.6 g/dl (31.0-35.0); Mean Corpuscular Volume 86.2 fL (80.0-98.0); Mean Platelet Volume 9.2 fL (9.4-12.3); Monocytes Absolute Auto 0.4 X10*3/uL (0.1-1.2); Monocytes Percent Auto 5.4 % (2-11); Neutrophils Percent Auto 59.7 % (45-73); Platelet Count 318 X10*3/uL (160-400); Red Blood Count 4.21 X10*6/uL (4.20-5.50); Red Cell Distribution Width 13.4 % (11.0-16.0); White Blood Count 6.6 X10*3/uL (4.8-10.8)
[2024-05-07 13:42] LABS: Alanine Aminotransferase 15 U/L (0-31); Aspartate Amino Transferase 20 U/L (5-31); C Reactive Protein < 0.10 mg/dL (< or = 0.50); Estimated Glomerular Filt Rate > 60
[2024-05-07 13:56] LABS: Erythrocyte Sedimentation Rate 12 MM/HR (0-20)
== END 2024-05-07 09:45 | disposition home or self-care (01) ==
LOC: HO.LAB 09:44
PROVIDERS: Visit Provider Internal Medicine Rheumatology
DX: M35.2 Behcet's disease (principal); G56.01 Carpal tunnel syndrome, right upper limb; Z79.60 Long term (current) use of unspecified immunomodulators and immunosuppressants; Z79.899 Other long term (current) drug therapy
CPT/HCPCS: 36415; 82565; 84450; 84460; 85025; 85652; 86140; 99212

== ENCOUNTER 2024-05-07 09:44 | Outpatient (AMB) | payer OTHER, SELFPAY ==
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
[2024-05-07 09:57] VITALS: BP 140/90; PULSE 74; TEMP 23.3; O2SAT 100
== END 2024-05-07 10:37 | disposition home or self-care (01) ==
LOC: HO.RHES 09:45
PROVIDERS: Visit Provider Internal Medicine Rheumatology
DX: M35.2 Behcet's disease (principal); G56.01 Carpal tunnel syndrome, right upper limb
CPT/HCPCS: 99215; G2211

== ENCOUNTER 2024-05-27 11:06 | Outpatient (AMB) | payer OTHER, SELFPAY ==
--- NOTE | 2024-05-27 11:10 | MHC.PC.OV ---
Vital Signs 05/27/24 11:13 Height 5 ft 4.57 in Weight 150 lb 5.684 oz BMI 25.4 BP 110/70 Blood Pressure Location Lt brachial Position Sitting Pulse 78 Pulse Source Pulse Oximeter Temp 97.3 F Temp Source Temporal Artery Scan Pulse Oximetry (%) 99 Oxygen Delivery Method Room Air Intake Visit Reasons: ptient looking for palliative care Intake Note: Patient is a new patient here to establish care for Bechets Disease, Ehler Danlos disease, IGA deficiency, Osteoarthritis, Head melanoma, Chronic pain, Myopathy, Neuropathy, Migraine (sever), Sever Bladder issues, GI issues. Transferring care from [facility]. Medical records have been requested and have not received. Hand Clipper Required: No Hydrochloric Manufacturing Supervisor: Not Required per policy Accompanied by: Self / Same As Patient Allergies hydroxychloroquine [From Plaquenil] Allergy (Intermediate, Verified 05/27/24 11:32) Vomiting leflunomide Allergy (Intermediate, Verified 05/27/24 11:32) Diarrhea adhesive tape Allergy (Unknown, Verified 05/27/24 11:32) Unknown erythromycin base [ERYTHROMYCIN BASE] Allergy (Unknown, Verified 05/27/24 11:32) UNKNOWN latex [LATEX] Allergy (Unknown, Verified 05/27/24 11:32) UNKNOWN acetaminophen [From Tylenol] Adverse Reaction (Unknown, Verified 05/27/24 11:32) Unknown Medication List - Last Reconciled 05/27/24 by Jo Ann Hebert PA-C apremilast (Otezla) 30 mg PO BID azelastine 1 spray intranasal BID colchicine 0.6 mg PO DAILY 30 days dextroamphetamine-amphetamine 20 mg 1 tab PO BID diazepam 5 mg PO TID PRN dicyclomine 10 mg PO BID PRN 90 days duloxetine 60 mg PO DAILY duloxetine 30 mg PO DAILY famotidine 20 mg PO BID gabapentin 900 mg (1.5 x 600 mg) PO TID glucosamine-chondroitin 250-200 mg (Osteo Bi-Flex) 2 tabs PO TID Magic Mouthwash Diphen/Lido/Antacid 1:1:1 240 mL orally; Lidocaine Viscous 2 % 80mL; diphenhydramine 12.5 mg/5 mL 80mL; aluminum-mag hydrox-simeth [id number]/5mL 80mL Swish, gargle and split 5 mL every 4-6 hours as needed. mupirocin 2% 1 appl topical BID PRN neomycin-polymyxin B-dexameth 3.5mg/mL-10,000 unit/mL-0.1 % 1 drp ophthalmic (eye) Q12H ondansetron 4 mg PO BID PRN oxycodone 5 mg PO TID PRN prucalopride (Motegrity) 1 mg PO DAILY 90 days tizanidine 2 mg PO Q8H PRN turmeric 400 mg PO DAILY Tobacco use date assessed: 05/27/24 Dental Screening Dental Screen Date: 05/27/24 Did you have a dental visit in the last 12 months?: Yes Did you have a dental problem in the last 6 months where you did not have access to dental care?: No Was dental information given to patient?: Patient has dentist HPI ptient looking for palliative care HPI Details 34-year-old female with past medical history of migraine, asthma, biliary dyskinesia, myelopathy, Behcet disease, fibromyalgia coming to the office for the 1st time. In review of the notes, patient follows with multiple specialists. She was seen by rheumatology 04/2024 requesting palliative consultation for home assessment, aids and additional resources to assist with ADLs.?She follows with [facility] for chronic back pain, following with Ophthalmology in [place] and follows with orthopedics for carpal tunnel syndrome.?She was continued on Otezla, reduced colchicine and considering leflunomide. She was seen by Cardiology 02/2024 for tachycardia ordered for Holter monitor, echocardiogram and ECG tilt-table test. She was seen by Gastroenterology 01/2024 for atrophic gastritis obtain small-bowel imaging with gastric emptying study and CT enterography. Patient follows with a psychiatrist through [facility] for counseling and for Psychiatry. She is working with physical therapy at this time for strength training. She also sees a golf player assistant, outside collector, sociology teacher, urologist, hot stick man, product examiner, neurologist and pain management. 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 She reports chronic instability in her knees and hips due to frequent dislocations and subluxations. She manages persistent pain with reduced dose oxycodone and has not found it effective. The instability of her right knee has resulted in daily dislocations. She also reports severe gastrointestinal issues, profound weight loss, and regular incidents of infections. She is experiencing extensive fatigue, sleep disturbances due to pain, and depression resulting from chronic pain and physical limitations. 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] Personal history of malignant melanoma of skin Muscle spasm of back Chronic pain syndrome Generalized anxiety disorder Major depressive disorder, single episode, in full remission Surgical History H/O right wrist surgery Hx laparoscopic cholecystectomy (10/22/23) Hx of tonsillectomy History of appendectomy Social History Household Members: Spouse and Family Housing: House Are you a primary toddler caregiver to a significant other at home: No Do you presently have visiting nurse or other home services: No Alcohol intake: current Alcohol intake frequency: holidays/special occasions only Patient Tobacco Use Status: Former Tobacco user Tobacco use type: Cigarette e-Cigarette/Vaping Use: Currently Using Second Hand Smoke Exposure: Yes Substance Use Type: Other and Caffiene Advance Directives Date on File: 10/29/23 service: No Current occupational status: disabled Cognitive needs: Yes (Walker, Cane) Hearing needs: No Vision needs: Yes (Glasses) Questionnaire PHQ-9 Over the last 2 weeks, how often have you been bothered by any of the following problems? 1. Little interest or pleasure in doing things: not at all 2. Feeling down, depressed, or hopeless: not at all 3. Trouble falling or staying asleep, or sleeping too much: not at all 4. Feeling tired or having little energy: not at all 5. Poor appetite or overeating: not at all 6. Feeling bad about yourself - or that you are a failure or have let yourself or your family down: not at all 7. Trouble concentrating on things, such as reading the newspaper or watching television: not at all 8. Moving or speaking so slowly that other people could have noticed. Or the opposite - being so fidgety or restless that you have been moving around a lot more than usual: not at all 9. Thoughts that you would be better off or of hurting yourself in some way: not at all Total score: 0 Depression Screening Interpretation: Negative Depression Screening Done: Yes Source: Developed by Drs. Mikael Maher, Saritha Us, David Ramos and colleagues, with an educational gigi from [employer]. Thrive Questionnaire Date Thrive assessed: 05/27/24 I am a: Patient What is your living situation today?: I have a steady place to live Within the past 12 months, did the food you bought not last and you didn't have the money to get more?: Never true Within the past 12 months, did you worry whether your food would run out before you got money to buy more?: Never true Do you have trouble paying for medicines?: No Do you have trouble getting transportation to medical appointments?: No Do you have trouble paying your heating and electricity bill?: No Do you have trouble taking care of your child, family member or friend?: No Do you have trouble with day-to-day activities such as bathing, preparing meals, shopping, managing finances, etc.?: No Are you currently unemployed and looking for a job?: No Are you interested in more education?: No Please select the resources that you would like help with: None Currently or been in a relationship where the following occur: No concerns reported THRIVE Score: 0 AUDIT C Alcohol Use Questionnaire (AUDIT-C) 1. How often do you have a drink containing alcohol?: Never Total Score: 0 ISAC-7 AMB Questionnaire ISAC-7 Date ISAC - 7 assessed: 05/27/24 Feeling nervous, anxious, or on edge: 0 = Not at all Not being able to stop or control worryin = Not at all Worrying too much about different things: 0 = Not at all Trouble relaxin = Not at all Being so restless that it is hard to sit still: 0 = Not at all Becoming easily annoyed or irritable: 0 = Not at all Feeling afraid as if something awful might happen: 0 = Not at all Total ISAC-7 score (0-4 normal; 5-9 mild; 10-14 moderate; 15-21 severe): 0 Source: Developed by Drs. Mikael Maher, Saritha Us, David Ramos and colleagues, with an educational gigi from [employer]. ISAC-7 Assessment Billing ISAC-7 Assessment Tool: ISAC-7 Assessment 02887 Review of Systems Const Denies body aches, Denies chills, Denies fever(s), Reports headache(s) and Denies poor appetite Eyes Reports no additional complaints ENT Denies dysphagia, Denies dizziness, Reports headache(s) and Denies odynophagia Card Denies chest pain, Denies syncope, Denies edema, Denies irregular heart rhythm, Denies lightheadedness and Denies dyspnea Resp Denies cough and Denies dyspnea GI Denies abdominal pain, Denies constipation, Denies dysphagia, Denies diarrhea, Denies nausea, Denies odynophagia and Denies vomiting Reports as per HPI Musc Details: Hypermobility of bilateral knees and hips Reports abnormal gait Skin/Breast Reports system reviewed and no additional complaints, except as documented Neuro Reports abnormal gait, Denies dizziness, Denies syncope and Reports headache(s) Psych Reports no additional complaints Physical exam (Primary Care) Vital Signs: Last Vital Signs Temp 97.3 F 05/27/24 11:13 Pulse 78 05/27/24 11:13 BP 110/70 05/27/24 11:13 Pulse Ox 99 05/27/24 11:13 Oxygen Delivery Method Room Air 05/27/24 11:13 BMI result Body Mass Index 25.4 Tobacco/Smoking Status: Tobacco use Status Tobacco use date assessed 05/27/24 05/27/24 11:19 Patient Tobacco Use Status Former Tobacco user 05/27/24 11:11 Tobacco use type Cigarette 05/27/24 11:11 e-Cigarette/Vaping Use Currently Using 05/27/24 11:11 PHQ-9: PHQ-9 Score PHQ-9: Total score 0 05/27/24 14:10 Depression Screening Interpretation: Negative Thrive Assessment: Date of Thrive Assessment Date Thrive assessed 05/27/24 05/27/24 11:11 Currently or been in a relationship where the following occur: No concerns reported Const General: cooperative, healthy appearing, comfortable and no acute distress Orientation/consciousness: patient oriented x3 HENMT Head: Yes normocephalic Ears: hearing grossly normal bilaterally General nose exam: Normal external nose present Eyes General: appearance normal, both eyes and all related structures Conjunctivae: conjunctivae normal Neck Neck: Yes full ROM and Yes no lymphadenopathy Resp Effort & Inspection: normal respiratory effort Auscultation: clear to auscultation bilaterally, no crackles, no rales, no rhonchi and no wheezes Cardio Rate: regular rate Rhythm: regular rhythm Skin General skin exam: no rashes or lesions noted Neuro General: patient oriented x3 Gait exam (Neuro): Normal gait present Extrem General: Yes normal to inspection, Yes full ROM and No edema Psych Affect: normal affect Attitude: cooperative Insight: Good insight present (Psych) Judgement: Good judgement present (Psych) Coding Level of Care Code New Pt Level 4 (82435) Diagnoses Polyarthralgia M25.50 Carpal tunnel syndrome, right G56.01 Hematuria, unspecified type R31.9 Hematuria type: unspecified type Fibromyalgia M79.7 Uveitis H20.9 Behcet disease with multisystem involvement M35.2 Thoracic compression fracture S22.000A Asthma J45.909 Intractable migraine without status migrainosus, unspecified migraine type G43.919 Intractability: intractable Migraine type: unspecified Status migrainosus presence: without status migrainosus Benign joint hypermobility syndrome M35.7 Depression F32.A Anxiety F41.9 Prolapse of female pelvic organs N81.9 Osteoarthritis of knees, bilateral M17.0 Additional Codes ISAC-7 Assessment Billing - ISAC-7 Assessment Tool: ISAC-7 Assessment 26171 ([id number]) Assessment & Plan Assessment & Plan (1) Polyarthralgia: Code(s): M25.50 - Pain in unspecified joint Category: Medical Plan: Patient complaining of polyarthralgia in relation to her Kings-Danlos syndrome recommend following up with pain management and continuing with [facility]. (2) Carpal tunnel syndrome, right: Comment: Carpal tunnel releasex2 with recent surgery complicated with infection treated with Keflex. Wound is healing well. Code(s): G56.01 - Carpal tunnel syndrome, right upper limb Category: Medical Plan: Patient currently following with spinal center for carpal tunnel syndrome. (3) Hematuria: Comment: On recent urinalysis. Urine culture has been negative so far. She was treated for UTI 01/2024 presenting with dysuria, urinary frequency, abdominal pain and mid back pain with resolution of urinary frequency and foul-smelling urine after antibiotic treatment, which consisted of IV antibiotics in the ER. She continues to have dysuria, suprapubic pain and mid back pain. I am requesting urgent urology evaluation for further workup to prevent recurrent ER visits. She has uncontrolled pain and is unable to sit for prolonged periods of time. She requested palliative consultation for pain control as her quality of life is very limited with all of her symptoms. I recommended that at this time it is best for her to get further workup to determine if there is a specific cause for her symptoms that is treatable. Code(s): R31.9 - Hematuria, unspecified Category: Medical Qualifiers: Hematuria type: unspecified type Qualified Code(s): R31.9 - Hematuria, unspecified Plan: She is following with Urology for hematuria. She has an appointment coming up in June. Denies any gross hematuria at this time. I did send her home with a urine sample as she has been having symptoms of urinary burning. (4) Fibromyalgia: Comment: not address this visit Code(s): M79.7 - Fibromyalgia Category: Medical Plan: Patient following with [facility] at this time. Advised her to follow up with management as well. Continue to follow up with Rheumatology (5) Uveitis: Comment: recent diagnosis on topical steroids. she did not tolerate hydroxychloroquine Prescribed by product examiner Dr. Michel. Code(s): H20.9 - Unspecified iridocyclitis Category: Medical Plan: Patient is currently following with [facility] [facility] for uveitis. (6) Behcet disease with multisystem involvement: Comment: Skin and oral ulcers have responded to Otezla. She would like to taper off of colchicine. I recommended decreasing colchicine to 0.6 mg daily from b.i.d. She continues to have polyarthralgias without clinical findings of synovitis on exam. This visit her fibromyalgia is not as active as it has been in the past. There may be a component of polyarthralgias from Behcet's syndrome. Celebrex provides pain relief but with her underlying history of chronic atrophic gastritis, I recommended discontinuing it as NSAIDs can contribute to it. To help treat her polyarthralgias, I am recommending trying DMARD therapy leflunomide. Discussed side effects, benefits and drug monitoring. She continues to have imbalance, requires walker to ambulate and has had falls. 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 Partial control with colchicine 0.6mg BID for oral ulcers with side effect of diarrhea (when she discontinued it, ulcers increased). Otezla 02/2024-controls oral ulcers and cutaneous disease. Low-dose prednisone causes agitation. No benefit in controlling joint pain with methylprednisolone. Cortisone injections to bilateral knees from pain management PSSP caused increased pain. MTX caused diarrhea. She has MTHFR mutation. She has history of dry eyes (SSA/SSB negative) treated with prednisolone topical, punctate plugs by Dr. Michel. She did not tolerate hydroxychloroquine due to vomiting started by Ophthalmology for dry eye syndrome. She saw Dr. Luther Villavicencio Opthalmologist 03/14/2024 who did not see any clinical signs of systemic inflammation in her eyes. She has history of Raynaud's syndrome and benign hypermobility syndrome. History of uterine and rectal prolapse. She was referred to Genetics at [facility] but no showed to appointment as patient did not have a ride. Neurological evaluation with imaging and EMGs have not revealed neurological involvement of Behcet's syndrome. She has had bilateral upper and R lower extremity EMG is that revealed bilateral carpal tunnel syndrome (03/2023 [facility] note), EMGs bilateral lower extremities [facility] 11/02/2023 normal, CT brain December 2022 and MRI C to T-spine 08/22/2022, MRI L-spine January 2021 has been negative. MRI brain May 2023 ordered by neurologist at [facility] was negative. Code(s): M35.2 - Behcet's disease Category: Medical Plan: Patient has extensive history of Behcet's disease and is currently following with Rheumatology. She has systemic problems in relation to this disease is currently being managed by a multitude specialists as well as her hot stick man. (7) Thoracic compression fracture: Code(s): S22.000A - Wedge compression fracture of unspecified thoracic vertebra, initial encounter for closed fracture Category: Medical Plan: Continue to follow with spinal center and [facility]. (8) Asthma: Code(s): J45.909 - Unspecified asthma, uncomplicated Category: Medical Plan: Asthma currently controlled on present medications. Avoid triggers such as allergies. (9) Migraine headache: Comment: Chronic. Exacerbated since being on methotrexate. She has discoordination, gait instability, frequent falls, symptoms of neuropathy in lower extremities with negative EMG for significant finding and prior brain imaging unrevealing. I was unable to locate recent brain MRI in [facility]'s EMR CIS. She has benefit on gabapentin in helping to control neuropathy. She denies any side effects from gabapentin. Code(s): G43.909 - Migraine, unspecified, not intractable, without status migrainosus Category: Medical Qualifiers: Intractability: intractable Migraine type: unspecified Status migrainosus presence: without status migrainosus Qualified Code(s): G43.919 - Migraine, unspecified, intractable, without status migrainosus Plan: Patient has a history of migraine headache she has an appointment coming up with Neurology in July to manage this concern. (10) Benign joint hypermobility syndrome: Code(s): M35.7 - Hypermobility syndrome Category: Medical Plan: Patient has hypermobility of hips and knees. She reports dislocations of the right knee on a regular basis. I reached out to Orthopedics to see if this patient would be a good candidate for the practice who agreed to take on the patient. Referral was placed to Orthopedics today for evaluation and treatment. I sent a new prescription for her Rollator walker as the 1 she has a currently damage in the breaks are not working effectively which makes it dangerous for ambulation. (11) Depression: Comment: [facility] for counseling and for Psychiatry. Code(s): F32.A - Depression, unspecified Category: Medical Plan: Currently undergoing treatment at this time. She does mentioned having increased depression guarding her current health status. She denies any thoughts of self-harm at this time and agrees to reach out if this changes. (12) Anxiety: Comment: [facility] for counseling and for Psychiatry Code(s): F41.9 - Anxiety disorder, unspecified Category: Medical Plan: See above (13) Prolapse of female pelvic organs: Code(s): N81.9 - Female genital prolapse, unspecified Category: Medical Plan: Patient reporting pelvic organ prolapse when bearing down to have a bowel movement. Referral was placed to gynecology at this time. (14) Osteoarthritis of knees, bilateral: Code(s): M17.0 - Bilateral primary osteoarthritis of knee Category: Medical Plan: Referral was placed to orthopedics for further evaluation. Plan Patient is requesting a palliative care consultation due to her chronic conditions that are not well managed. She believes the palliative care and we will help her improve her quality of life which at this time is poor. Referral was placed to palliative Care Medicine today. To manage her chronic pain and optimize her quality of life, the plan will involve quick referrals to both palliative care and pain management, prioritizing holistic and non-opioid treatment pathways. Orthopedic consultation will be arranged to address chronic knee instability, with the consideration of braces or potential surgical options. Ongoing monitoring with gastroenterology to address severe GI symptoms and ensure continuity with rheumatology for systemic disease management will be maintained. Follow-up with cardiology is essential, focusing on arrhythmia episodes, and tracking pending diagnostic outcomes. Replacement of broken mobility aids, including the provision of a functional wheelchair, will be expedited alongside the continued support of VNA services to better facilitate home adaptations and promote functional independence and family support. Psychiatric input will continue to be essential in mental health stabilization and addressing the psychological impact of chronic disease. This note was constructed using voice recognition software. While every effort has been made to ensure accuracy and folding machine setter, still areas may have been included sometimes these areas may affect the content or meeting of the given symptoms. Total time spent caring for the patient today was 30 minutes. This includes time spent before the visit reviewing the chart, time spent during the visit, and time spent after the visit and documentation. Patient was informed and verbally consented to the use of an ambient scribe for clinic note documentation during this visit. Orders: Referrals [facility]ER Referral Jo Ann Hebert PA-C N81.9 - Female genital prolapse, unspecified Orthopedics Referral Jo Ann Hebert PA-C M17.0 - Bilateral primary osteoarthritis of knee, M25.551 - Pain in right hip, M25.552 - Pain in left hip, M35.7 - Hypermobility syndrome Palliative Care Referral Jo Ann Hebert PA-C M35.2 - Behcet's disease, M35.7 - Hypermobility syndrome Pain Management Referral Jo Ann Hebert PA-C M17.0 - Bilateral primary osteoarthritis of knee, M25.50 - Pain in unspecified joint, M35.7 - Hypermobility syndrome, M79.7 - Fibromyalgia Medications: New [wheelchair] As directed 1 ea 0RF Jo Ann Hebert PA-C M17.0 - Bilateral primary osteoarthritis of knee, M35.7 - Hypermobility syndrome, S22.000A - Wedge compression fracture of unspecified thoracic vertebra, initial encounter for closed fracture walker (Ultra-Light Rollator [facility] As directed 1 ea 0WILEY Hebert PA-C Changed From oxycodone Partial Fill upon patient request. 10 mg (2 x 5 mg) PO Q6H PRN 7 tabs 0RF Pain, Moderate(Pain Scale 4-6) To oxycodone Partial Fill upon patient request. 5 mg PO TID PRN Pain, Moderate(Pain Scale 4-6) ALONSO Nath
[2024-05-27 11:13] VITALS: BP 110/70; PULSE 78; TEMP 36.3; O2SAT 99; BMI 25.4
--- OUTSIDE RECORDS SUMMARY | 2024-05-27 13:39 | XMS_ITS | Clinical Summary ---
Author Organization [address] Address [address] [place] [phone] Phone Care Team Providers Care Company Manager Name Role Phone Genesis Davis MD Primary Care Provider [phone] Allergies Active Allergy Reactions Criticality Noted Date [...] Diagnosed Date Morbid obesity with BMI of 4 0.0-44.9, adult ([facility] [place], [facility]) 11/23/2023 Allergic conjunctivitis of both eyes 06/19/2019 Perennial allergic rhinitis 06/19/2019 Arthralgia 04/09/2019 Lower abdominal pain 04/09/2019 IgA deficiency ([facility], [facility]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 Melanoma in situ ([facility], [facility] V28) 03/2018 Nevus 08/12/2018 Insulin controlled gestation al diabetes [...] APPENDECTOMY PROCEDURE: HISTORICAL APPENDECTOMY ESOPHAGOGASTRODUODENOSCOPY 03/29/15 PROCEDURE: CA EGD TRANSORAL BIOPSY SINGLE/MULTIPLE; COMMENT: mild distal [...] Care Team (Late st Contact Info) Description 07/15/2024 2:30 PM EDT Appointment [facility] Xray [address] [place] [address] Health Maintenance Due Date Last [...] Screening (Lipid Panel) 04/19/2023 04/18/2018 Influenza Vaccine (Season Ended) 2024 DTaP,Tdap,and Td Vaccines (2 - Td or [...] age to complete this topic Meningococcal B Vaccine Aged Out No l onger eligible based on patient's age to complete [...] Maintenance Results * (ABNORMAL) Lipid panel (04/18/2018) LDL/HDL Ratio 4 0 - 4 Triglycerides 97 0 - 150 mg/dL Cholesterol 179 0 - 200 mg/dL HDL 42 >=40 mg/dL LDL Cholesterol 118(A) 0 - 100 mg/dL Blood Venous blood specimen / Unknown Historical Provider LAB BLOOD ORDERABLES Candis l Result * HIV Screening (06/14/2017) HIV Screening abstracted us Historical Provider HEALTH MAINTENANCE Final Result * Pap smear (06/13/2017) 06/13/2017 Narrative HISTORICAL TESTING LAB RESULTING AGENCY - 06/20/2017 4:55 PM EDT [id number] THINPREP PAP, IMAGED AND CELL BLOCK: NEGATIVE [...] HX: NEGATIVE 06/09/2017, [place] CNM LAB CYTOLOGY ORDERA BLES Final Result HISTORICAL TESTING LAB RESULTING AGENCY from Last 3 Months or Most Recently Relevant to Health Maintenance Insurance [facility] [employer] Care Teams Company Manager Relationship Specialty Start Date End Date Genesis Davis MD [address] [place] [id number] [facility] - General 08/31/23
--- OUTSIDE RECORDS SUMMARY | 2024-05-27 13:39 | XMS_ITS | Encounter Summary ---
Author Organization [facility] Address [address] [place] [address] Care Team Providers Care Cold Patcher Name Role Phone Ana Cortez Primary Care Provider [phone] Encounter Details Date Type Department Care Team (Late st Contact Info) Description 08/11/2022 Orders Only [facility] [address] [place] [address] Brenda Willard, DO [address] [place], [place] [id number] Social History Tobacco Use Types Packs/Day Years [...] on filedocumented in this encounter Care Teams Cold Patcher Relationship Specialty Start Date End Date Ana Cortez [address] [place] [address] PCP - General 04/10/23 documented as of this encounter
--- OUTSIDE RECORDS SUMMARY | 2024-05-27 13:39 | XMS_ITS | Clinical Summary ---
Author Organization [facility] Address [address] [place] [address] Care Team Providers Care Airplane Rental Clerk Name Role Phone Ana Cortez Primary Care Provider [phone] Allergies Active Allergy Reactions Criticality Noted Date [...] 100 mg by mouth 2 times daily. 03/06/19 Active EPINEPHrine (EPIPEN) 0.3 mg/0.3 mL injection syringe Inject 0.3 mg into the shoulder, thigh, or buttocks muscle as directed once daily as needed. 08/03/19 22 Active famotidine (PEPCID) 40 mg tablet 03/16/19 23 Active ondansetron (ZOFRAN ODT) 4 mg disintegrating tablet Dissolve 4 mg in the mouth every 8 hours as needed. 03/22/19 23 Active LORazepam (ATIVAN) 0.5 mg tablet Take 1 tablet (0.5 mg total) by mouth Pre-medication (MRI pre-med) for up to 2 doses. 2 tablet 08/04/19 Active baclofen (LIORESAL) 20 mg tablet TAKE 1 TABLET BY MOUTH 3 TIMES A DAY FOR MUSCLE SPASTICITY FOR 30 DAYS 09/08/19 23 Active albuterol (PROAIR HFA,VENTOLIN HFA) 90 mcg inhaler SMARTSI Puff(s) By Mouth Every 6 Hours PRN 11/19/19 22 Active busPIRone (BUSPAR) 15 mg tablet SMARTSI Tablet(s) By Mouth Twice Daily 09/13/19 23 Active mirtazapine (REMERON) 7.5 mg tablet SMARTSI Tablet(s) By Mouth Every Night 09/13/19 23 Active senna 8.6 mg tablet SMARTSI Tablet(s) By Mouth Daily PRN 03/06/19 23 Active cholecalciferol (VITAMIN D3) 1,250 mcg (50,000 unit) capsule TAKE 1 CAPSULE BY MOUTH ONE TIME PER WEEK 12 capsule 01/23/20 23 Active azelastine (ASTELIN) 137 mcg (0.1 %) nasal spray Administer 2 sprays into each nostril 2 times a day. 30 mL 11 05/15/19 24 025 Active Problems Problem Noted Date Diagnosed Date [...] Assessment & Plan: Will be scheduled with [facility] GI. Saw Dr. Reyes who [...] - PCV) 01/07/2008 COVID-19 Vaccine (1 - ) 10/14/2023 Alcohol/Substance Use Screening 02/13/2024 Depression Screening and Follow-Up 02/13/2024 Social Drivers of Health Annual Screening 02/13/2024 Influenza Vaccine (Season Ended) 2024 DTaP,Tdap,and Td Vaccines (2 - Td or Tdap) 10/12/2025 10/13/2015 RSV Vaccine (60+ years old a nd patients) (1 - 1-dose 75+ series) 01/07/2064 Insurance [employer] Care Teams Airplane Rental Clerk Relationship Specialty Start Date End Date Ana Cortez [address] [place] [address] PCP - General 04/10/23
--- OUTSIDE RECORDS SUMMARY | 2024-05-27 13:39 | XMS_ITS | Referral Summary ---
Author Organization [facility] Address [address] [place] [address] Care Team Providers Care Fitter Armament Name Role Phone Ana Cortez Primary Care Provider [phone] Allergies Active Allergy Reactions Criticality Noted Date [...] Assessment & Plan: Will be scheduled with [facility] GI. Saw Dr. Reyes who [...] Insurance [employer] Care Teams Fitter Armament Relationship Specialty Start Date End Date Ana Cortez [address] [place], [place] [address] PCP - General 04/10/23
--- OUTSIDE RECORDS SUMMARY | 2024-05-27 13:39 | XMS_ITS | Clinical Summary ---
Author Organization [facility] Address [address] [place] [address] Care Team Providers Care Rat Exterminator Name Role Phone Ana Cortez NP Primary Care Provider [phone] Allergies Active Allergy Reactions Criticality Noted Date [...] age to complete this topic Care Teams Rat Exterminator Relationship Specialty Start Date End Date Ana Cortez NP [address] [address] PCP - General Family Medicine 09/21/22
== END 2024-05-27 12:24 | disposition home or self-care (01) ==
LOC: HO.HMCH 11:06
DX: G56.01 Carpal tunnel syndrome, right upper limb (principal); M35.2 Behcet's disease; S22.000A Wedge compression fracture of unspecified thoracic vertebra, initial encounter for closed fracture; M25.50 Pain in unspecified joint; R31.9 Hematuria, unspecified; M79.7 Fibromyalgia; H20.9 Unspecified iridocyclitis; J45.909 Unspecified asthma, uncomplicated; G43.919 Migraine, unspecified, intractable, without status migrainosus; M35.7 Hypermobility syndrome; F32.A Depression, unspecified; F41.9 Anxiety disorder, unspecified

== ENCOUNTER → 2024-05-27 11:06 | Outpatient (BNVA) | payer OTHER, SELFPAY | DX: G43.909 Migraine, unspecified, not intractable, without status migrainosus (principal); J45.909 Unspecified asthma, uncomplicated; M79.7 Fibromyalgia; M35.2 Behcet's disease; M54.50 Low back pain, unspecified; G56.01 Carpal tunnel syndrome, right upper limb; R31.9 Hematuria, unspecified; H20.9 Unspecified iridocyclitis; G43.919 Migraine, unspecified, intractable, without status migrainosus; M35.7 Hypermobility syndrome; F32.A Depression, unspecified; F41.9 Anxiety disorder, unspecified; N81.9 Female genital prolapse, unspecified; M17.0 Bilateral primary osteoarthritis of knee; S22.000A Wedge compression fracture of unspecified thoracic vertebra, initial encounter for closed fracture; X58.XXXA Exposure to other specified factors, initial encounter; Y93.9 Activity, unspecified; Y92.9 Unspecified place or not applicable; Y99.9 Unspecified external cause status | CPT/HCPCS: 96127; 99202 ==

== ENCOUNTER 2024-06-09 13:43 | Outpatient (AMB) | payer OTHER, SELFPAY ==
--- NOTE | 2024-06-09 13:43 | A.OFFVIS_ITS ---
Intake Visit Reasons: f/u rescheduled from 04/07 Intake Note: Ilia CC: Nausea, Vomiting, Severe abdominal pains - she states the pains in the stomach come and go. If she bends over or does anything that requires her muscles in the abdomen she gets a pain in the place where her gall bladder used to be. She states there is no inbetween - she either has constipation or diarrhea. Dicyclomine helps with pains after eating but the pains are so bad she has issues keeping food down at times. 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 Pt was seen for inpatietn consultation 10/2023 for RUQ pain. W/up was significant for abnormal HIDA scan, and gastritis/duodenitis. Pt is s/p cholecystectomy 10/22/23. Reports near resolution of R sided abd pain but continues to endorse diffuse abd pain and bloating with nausea paula 10-20 mins after eating. This is assoc with constipation. Prev was struggling with diarrhea but now bowel movements have shifted to constipation. Pain gets worse with the urge to defecate. Prev has been seen by [facility]. Dr Colon. Has had extensive w/up including EGD/colo 2022. 06/09/24: Continues to have same symptoms including abd discomfort, bloating paula post prandial. Sometimes feel has a tough time belching to feel better. Again reports feeling of fullness for a prolonged period of time after eating. GES not done yet. More recently has also noted R upper abd pain on core exercises and bending certain way. Pt does not see a dedicated specialist for Ehler Danlos but established with Rheum for possible behcets. 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] Personal history of malignant melanoma of skin Muscle spasm of back Chronic pain syndrome Generalized anxiety disorder Major depressive disorder, single episode, in full remission Surgical History H/O right wrist surgery Hx laparoscopic cholecystectomy (10/22/23) Hx of tonsillectomy History of appendectomy Social History Household Members: Spouse and Family Housing: House Are you a primary assurance services manager health care to a significant other at home: No Do you presently have visiting nurse or other home services: No Alcohol intake: current Alcohol intake frequency: holidays/special occasions only Patient Tobacco Use Status: Former Tobacco user Tobacco use type: Cigarette e-Cigarette/Vaping Use: Currently Using Second Hand Smoke Exposure: Yes Substance Use Type: Other and Caffiene Advance Directives Date on File: 10/29/23 service: No Current occupational status: disabled Cognitive needs: Yes (Walker, Cane) Hearing needs: No Vision needs: Yes (Glasses) Review of Systems Const All systems reviewed & are unremarkable except as noted in HPI and below Physical Exam Vital Signs: Video visit: No acute distress No icterus noted No facial asymmetry Speaking in full sentences Telehealth Telehealth Telehealth Platform: [employer] Location of provider rendering services: practice address Location of patient: address on file Patient Identification confirmed using: Name, : Yes Telehealth method: video Patient verbally consented to treatment: Yes Patient verbally consented to billing insurance company: Yes Patient informed of any privacy concerns related to visit: Yes Minutes spent on Phone/Video with Pt.: 20 Assessment & Plan Assessment & Plan (1) Atrophic gastritis: Code(s): K29.40 - Chronic atrophic gastritis without bleeding Category: Medical (2) Change in bowel habit: Code(s): R19.4 - Change in bowel habit Category: Medical (3) Abdominal bloating: Code(s): R14.0 - Abdominal distension (gaseous) Category: Medical Plan DDx includes postprandial distress 2/2 atrophic gastritis vs delayed gastric emptying. Also ? no burp syndrome Retrograde Cricopharyngeus Dysfunction (R- CPD) given report of difficulty belching which causes worsening pain and bloating, IBS-mixed, vs IMO due to constipation. Plan: - Barium swallow Rxed - Trial of reglan 5 ml QID x 5 days - Pt aware to HOLD this x 1 week before GES - GES pending - She also requests increased bentyl dose which was Rxed - she is aware that this may make constipation worse Follow up after imaging is done. Pt aware to leave us a msg on the portal when she books these with centralized scheduling. Orders: Orders [place] barium swallow Today R14.0 - Abdominal distension (gaseous) Medications: New metoclopramide HCl 5 mg (5 mL) PO TID 5 days 75 mL 1RF Changed From dicyclomine 10 mg PO BID 90 days PRN 180 caps 0RF abdominal pain To dicyclomine 20 mg (2 x 10 mg) PO BID 90 days PRN 180 caps 1RF abdominal pain Coding Level of Care Code Tele Est Pt Level 4 (91951) Diagnoses Atrophic gastritis K29.40 Change in bowel habit R19.4 Abdominal bloating R14.0
--- OUTSIDE RECORDS SUMMARY | 2024-06-09 16:25 | XMS_ITS | Referral Summary ---
Author Organization [facility] Address [address] [place] [address] Care Team Providers Care Gas Refrigerator Servicer Name Role Phone nAa Cortez Primary Care Provider [phone] Encounters Date Type Department Care Team Description 05/28/2024 Refill [facility] [address] [place] [address] [id number] Erecting Crane Operator: Pushpa Amin, ALONSO Dean from Last 3 Months Allergies Active Allergy Reactions Criticality Noted Date [...] mg by mouth 2 times daily. 03/06/19 23 Active EPINEPHrine (EPIPEN) 0.3 mg/0.3 mL injection [...] up to 2 doses. 2 tablet 08/04/19 23 Active baclofen (LIORESAL) 20 mg tablet TAKE [...] Assessment & Plan: Will be scheduled with [facility] GI. Saw Dr. Reyes who recommended [...] Insurance [employer] Care Teams Gas Refrigerator Servicer Relationship Specialty Start Date End Date Ana Cortez [address] [place] [address] PCP - General 04/10/23
--- OUTSIDE RECORDS SUMMARY | 2024-06-09 16:25 | XMS_ITS | Patient Health Record ---
Author Organization [facility] Address [address] [place] [phone] Support Name Relationship Address Phone JAVIER REYNOLDS [...] [facility] [address] [place] [address] [id number] JAVIER REYNOLDS Self - patient is the insured
--- OUTSIDE RECORDS SUMMARY | 2024-06-09 16:25 | XMS_ITS | Clinical Summary ---
Author Organization [facility] Address [address] [place] [address] Care Team Providers Care Tapper Operator Name Role Phone Ana Cortez Primary Care Provider [phone] Allergies Active Allergy Reactions Criticality Noted Date [...] Assessment & Plan: Will be scheduled with [facility] GI. Saw Dr. Reyes who recommended work up of potential GI causes of her pain prior to diagnostic laparoscopy. Asthma 09/24/2013 Encounters Date Type Department Care Team Description 05/28/2024 Refill [facility] [address] [place] [phone] Distance Learning Technician: Pushpa Amin, ALONSO Dean from Last 3 Months Family History Medical History Relation Name Comments [...] of 2 - PCV) 01/07/2008 COVID-19 Vaccine ( - season) 2023 Alcohol/Substance Use Screening 02/13/2024 Depression Screening and Follow-Up 02/13/2024 Social Drivers of Health Annual Screening 02/13/2024 Influenza Vaccine (Season Ended) 2024 DTaP,Tdap,and Td Vaccines (2 - Td or Tdap) 10/12/2025 10/13/2015 RSV Vaccine (60+ years old a nd patients) (1 - 1-dose 75+ series) 01/07/2064 Insurance [facility] MEDICA[facility] Care Teams Tapper Operator Relationship Specialty Start Date End Date Ana Cortez [address] [place] [address] PCP - General 04/10/23
--- OUTSIDE RECORDS SUMMARY | 2024-06-09 16:26 | XMS_ITS | Clinical Summary ---
Author Organization [address] Address [address] [place] [phone] Phone Care Team Providers Care Journeyman Power Plant Operator Name Role Phone Genesis Davis MD Primary [...] obesity with BMI of 4 0.0-44.9, adult ([facility], [facility] V28) 11/23/2023 Allergic conjunctivitis of both eyes 06/19/2019 Perennial allergic rhinitis 06/19/2019 Arthralgia 04/09/2019 Lower abdominal pain 04/09/2019 IgA deficiency ([facility], [facility]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 Melanoma in situ ([facility], [facility] V28) 03/2018 Nevus 08/12/2018 Insulin controlled gestation [...] APPENDECTOMY PROCEDURE: HISTORICAL APPENDECTOMY ESOPHAGOGASTRODUODENOSCOPY 03/29/15 PROCEDURE: [place] EGD TRANSORAL BIOPSY SINGLE/MULTIPLE; COMMENT: mild distal [...] Info) Description 07/15/2024 2:30 PM EDT Appointment [facility] Xray [address] [place] [address] Health Maintenance Due Date Last [...] RESULTING AGENCY - 06/20/2017 4:55 PM EDT [id number] THINPREP PAP, IMAGED AND CELL BLOCK: NEGATIVE [...] Most Recently Relevant to Health Maintenance Insurance [facility] [facility] Care Teams Journeyman Power Plant Operator Relationship Specialty Start Date End Date Genesis Davis MD [address] [place] [id number] [facility] - General 08/31/23
--- OUTSIDE RECORDS SUMMARY | 2024-06-09 16:26 | XMS_ITS | Encounter Summary ---
Author Organization [facility] Address [address] [place] [address] Care Team Providers Care House Builder Name Role Phone Ana Cortez Primary Care Provider [phone] Encounter Details Date Type Department Care Team (Late st Contact Info) Description 08/11/2022 Orders Only [facility] Neurology Clinic [address] [place] [address] Brenda Willard, DO [address] [place], [place] [phone] Social History Tobacco Use Types Packs/Day Years [...] on filedocumented in this encounter Care Teams House Builder Relationship Specialty Start Date End Date Ana Cortez [address] [place] [address] PCP - General 04/10/23 documented as of this encounter
--- OUTSIDE RECORDS SUMMARY | 2024-06-09 16:26 | XMS_ITS | Clinical Summary ---
Author Organization [facility] Address [address] [place] [address] Care Team Providers Care Plate And Weld Inspector Name Role Phone Ana Cortez NP Primary Care Provider [phone] Allergies Active Allergy Reactions Criticality Noted Date [...] age to complete this topic Care Teams Plate And Weld Inspector Relationship Specialty Start Date End Date Ana Cortez NP [address] [address] PCP - General Family Medicine 09/21/22
== END 2024-06-09 16:32 | disposition home or self-care (01) ==
LOC: HO.HGI 13:43
PROVIDERS: Visit Provider Internal Medicine
DX: K29.40 Chronic atrophic gastritis without bleeding (principal); R19.4 Change in bowel habit; R14.0 Abdominal distension (gaseous)
CPT/HCPCS: 99214

== ENCOUNTER 2024-06-10 13:43 | Outpatient (AMB) | payer OTHER, SELFPAY ==
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
[2024-06-10 14:03] VITALS: BP 110/74; PULSE 71; TEMP 37.7; O2SAT 100
--- OUTSIDE RECORDS SUMMARY | 2024-06-10 15:54 | XMS_ITS | Encounter Summary ---
Author Organization [facility] Address [address] [place] [address] Care Team Providers Care Business Intelligence Etl Developer Name Role Phone Ana Cortez Primary Care Provider [phone] Encounter Details Date Type Department Care Team (Late st Contact Info) Description 08/11/2022 Orders Only [facility] Neu[facility] [address] [place] [address] Brenda Willard, DO [address] [place], [place] [phone] Social History Tobacco Use Types Packs/Day Years [...] on filedocumented in this encounter Care Teams Business Intelligence Etl Developer Relationship Specialty Start Date End Date Ana Cortez [address] [place] [address] PCP - General 04/10/23 documented as of this encounter
--- OUTSIDE RECORDS SUMMARY | 2024-06-10 15:54 | XMS_ITS | Clinical Summary ---
Author Organization [facility] Address [address] [place] [address] Care Team Providers Care Manager Business Intelligence Name Role Phone Ana Cortez Primary Care Provider [phone] Allergies Active Allergy Reactions Criticality Noted Date [...] & Plan: Will be scheduled with [facility] GI. Saw Dr. Reyes who recommended work up of potential GI causes of her pain prior to diagnostic laparoscopy. Asthma 09/24/2013 Encounters Date Type Department Care Team Description 05/28/2024 Refill [facility] Otolaryngology Clinic [address] [place] [phone] Trading Manager: Pushpa Amin, ALONSO Dean from Last 3 [...] (1 - 1-dose 75+ series) 01/07/2064 Insurance [facility] MEDICAID [facility] MEDICAID Care Teams Manager Business Intelligence Relationship Specialty Start Date End Date Ana Cortez [address] [place] [id number] PCP - General 04/10/23
--- OUTSIDE RECORDS SUMMARY | 2024-06-10 15:54 | XMS_ITS | Clinical Summary ---
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 X[facility] [address] [place] [address] Health Maintenance Due Date Last [...] RESULTING AGENCY - 06/20/2017 4:55 PM EDT [id number] THINPREP PAP, IMAGED AND CELL BLOCK: NEGATIVE [...] Most Recently Relevant to Health Maintenance Insurance [facility] Care Teams Health Aid Relationship Specialty Start Date End Date Genesis Davis MD [address] [place] [phone] [facility] - General 08/31/23
--- OUTSIDE RECORDS SUMMARY | 2024-06-10 15:54 | XMS_ITS | Referral Summary ---
Author Organization [facility] Address [address] [place] [address] Care Team Providers Care Imaging Manager Name Role Phone Ana Cortez Primary Care Provider [phone] Encounters Date Type Department Care Team Description 05/28/2024 Refill [facility] Otol[facility]ology Clinic [address] [place] [phone] Accounting Manager: Pushpa Amin, ALONSO Dean from Last [...] Assessment & Plan: Will be scheduled with [facility] GI. Saw Dr. Reyes who recommended [...] Insurance [employer] Care Teams Imaging Manager Relationship Specialty Start Date End Date Ana Cortez [address] [place] [address] PCP - General 04/10/23
--- OUTSIDE RECORDS SUMMARY | 2024-06-10 15:54 | XMS_ITS | Clinical Summary ---
Author Organization [facility] Address [address] [place] [address] Care Team Providers Care Operator Specialist Communications Name Role Phone Ana Cortez NP Primary Care Provider [phone] Allergies Active Allergy Reactions Criticality Noted Date [...] age to complete this topic Care Teams Operator Specialist Communications Relationship Specialty Start Date End Date Ana Cortez NP [address] [phone] PCP - General Family Medicine 09/21/22
== END 2024-06-10 14:39 | disposition home or self-care (01) ==
LOC: HO.RHES 13:44
PROVIDERS: PCP Internal Medicine; Visit Provider Internal Medicine Rheumatology
DX: M35.2 Behcet's disease (principal); M25.50 Pain in unspecified joint
CPT/HCPCS: 99214; G2211

== ENCOUNTER → 2024-06-10 13:43 | Outpatient (BNVA) | payer OTHER, SELFPAY | PROVIDERS: PCP Internal Medicine; Visit Provider Internal Medicine Rheumatology | DX: M35.2 Behcet's disease (principal); M25.50 Pain in unspecified joint | CPT/HCPCS: 99212 ==

== ENCOUNTER 2024-06-17 15:16 | Outpatient (REF) | payer OTHER, SELFPAY ==
--- NOTE | ~2024-06-17 | XR_ITS ---
EXAMINATION: XR HAND, LEFT CLINICAL INFORMATION: M25.50 - Pain in unspecified joint COMPARISON: None available. TECHNIQUE: PA, lateral, and oblique views of the left hand. FINDINGS: No acute cortical disruption. No malalignment. No bony erosions. No lytic or blastic lesions. No joint space narrowing. No metallic or radiopaque foreign body. No subcutaneous emphysema. XR/XR hand LT min 3V IMPRESSION: Normal x-ray left hand. Electronically signed by: Kevin Saeed MD 06/17/2024 03:43 PM EDT
--- NOTE | ~2024-06-17 | XR_ITS ---
EXAMINATION: XR HAND, RIGHT CLINICAL INFORMATION: M25.50 - Pain in unspecified joint COMPARISON: None available. TECHNIQUE: PA, lateral, and oblique views of the right hand. FINDINGS: No acute cortical disruption. No malalignment. No lytic or blastic lesions. No bony erosions. No joint space narrowing. No subcutaneous emphysema. Metallic or radiopaque foreign body. XR/XR hand RT min 3V IMPRESSION: Normal x-ray right hand. Electronically signed by: Kevin Saeed MD 06/17/2024 03:42 PM EDT
--- OUTSIDE RECORDS SUMMARY | 2024-06-17 16:27 | XMS_ITS | Clinical Summary ---
Author Organization [facility] Address [address] [place] [address] Care Team Providers Care Pocket Stitcher Name Role Phone Ana Cortez Primary Care Provider [phone] Allergies Active Allergy Reactions Criticality Noted Date [...] TIME PER WEEK 12 capsule 3 Active Active Problems Problem Noted Date Diagnosed [...] Assessment & Plan: Will be scheduled with [facility] GI. Saw Dr. Reyes who recommended work up of potential GI causes of her pain prior to diagnostic laparoscopy. Asthma 09/24/2013 Encounters Date Type Department Care Team Description 05/28/2024 Refill [facility] Otolaryngology Clinic [address] [place] [phone] Business Development Sales Executive: Pushpa Amin, ALONSO Dean from Last 3 [...] COVID-19 Vaccine (1 - 2023- season) 2023 Alcohol/Substance Use Screening 02/13/2024 Depression Screening and Follow-Up 02/13/2024 Social Drivers of Health Annual Screening 02/13/2024 Influenza Vaccine (Season Ended) 2024 DTaP,Tdap,and Td Vaccines (2 - Td or Tdap) 10/12/2025 10/13/2015 RSV Vaccine (60+ years old a nd patients) (1 - 1-dose 75+ series) 01/07/2064 Insurance [employer] Care Teams Pocket Stitcher Relationship Specialty Start Date End Date Ana Cortez [address] [place] [address] PCP - General 04/10/23
--- OUTSIDE RECORDS SUMMARY | 2024-06-17 16:27 | XMS_ITS | Encounter Summary ---
Author Organization [facility] Address [address] [place] [address] Care Team Providers Care Doctor Of Nursing Practice Name Role Phone Ana Cortez Primary Care Provider Encounter Details Date Type Department Care Team (Late st Contact Info) Description 08/11/2022 Orders Only [facility] Neurology Clinic [address] [place] [address] Brenda Willard, DO [address] [place], [place] [phone] Social History Tobacco Use Types Packs/Day Years [...] on filedocumented in this encounter Care Teams Doctor Of Nursing Practice Relationship Specialty Start Date End Date Ana Cortez [address] [place] [address] PCP - General 04/10/23 documented as of this encounter
--- OUTSIDE RECORDS SUMMARY | 2024-06-17 16:27 | XMS_ITS | Clinical Summary ---
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, [facility]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 Melanoma in situ ([facility] V24, [facility] V28) 03/2018 Nevus 08/12/2018 Insulin controlled gestation [...] Info) Description 07/15/2024 2:30 PM EDT Appointment [facility] Xray [address] [place] [address] Health Maintenance Due Date Last [...] RESULTING AGENCY - 06/20/2017 4:55 PM EDT [id number] THINPREP PAP, IMAGED AND CELL BLOCK: NEGATIVE [...] Most Recently Relevant to Health Maintenance Insurance [facility] Care Teams Hat Blocker Relationship Specialty Start Date End Date Genesis Davis MD [address] [place] [phone] [facility] - General 08/31/23
--- OUTSIDE RECORDS SUMMARY | 2024-06-17 16:27 | XMS_ITS | Clinical Summary ---
Author Organization [facility] Address [address] [place] [address] Care Team Providers Care Marketing Strategist Name Role Phone Ana Cortez NP Primary Care Provider [phone] Allergies Active Allergy Reactions Criticality Noted Date [...] to complete this topic Care Teams Marketing Strategist Relationship Specialty Start Date End Date Ana Cortez NP [address] [phone] PCP - General Family Medicine 09/21/22
--- OUTSIDE RECORDS SUMMARY | 2024-06-17 16:27 | XMS_ITS | Referral Summary ---
Author Organization [facility] Address [address] [place] [address] Care Team Providers Care Thread Weaver Name Role Phone Ana Cortez Primary Care Provider [phone] Encounters Date Type Department Care Team Description 05/28/2024 Refill [facility] Otolaryngology Clinic [address] [place] [phone] Regulator Inspector: Pushpa Amin, ALONSO Dean from Last 3 [...] Assessment & Plan: Will be scheduled with [facility] GI. Saw Dr. Reyes who [...] Insurance [employer] Care Teams Thread Weaver Relationship Specialty Start Date End Date Ana Cortez [address] [place] [address] PCP - General 04/10/23
== END 2024-06-17 15:17 | disposition home or self-care (01) ==
LOC: HO.HMGCX 15:16
PROVIDERS: Visit Provider Internal Medicine Rheumatology
DX: M79.641 Pain in right hand (principal); M79.642 Pain in left hand; M35.2 Behcet's disease
CPT/HCPCS: 73130

== ENCOUNTER → 2024-06-17 15:19 | Outpatient (BNV) | payer OTHER, SELFPAY | PROVIDERS: Visit Provider Radiology Diagnostic Radiology | DX: M79.641 Pain in right hand (principal); M79.642 Pain in left hand | CPT/HCPCS: 73130 ==

== ENCOUNTER 2024-06-23 10:59 | Outpatient (AMB) | payer OTHER, SELFPAY ==
--- NOTE | 2024-06-23 11:07 | MHC.OFFVIS ---
Intake Visit Reasons: Hemturia/dysuria Intake Note: New patient presents today for initial visit for hematuria/dysuria Urology Medication:None Blood Thinner:None Antibiotic Allergies:Erythromycin PVR:12ml Allergies hydroxychloroquine [From Plaquenil] Allergy (Intermediate, Verified 06/23/24 11:30) Vomiting leflunomide Allergy (Intermediate, Verified 06/23/24 11:30) Diarrhea adhesive tape Allergy (Unknown, Verified 06/23/24 11:30) Unknown erythromycin base [ERYTHROMYCIN BASE] Allergy (Unknown, Verified 06/23/24 11:30) UNKNOWN latex [LATEX] Allergy (Unknown, Verified 06/23/24 11:30) UNKNOWN acetaminophen [From Tylenol] Adverse Reaction (Unknown, Verified 06/23/24 11:30) Unknown HPI Comments Details: 34 year old female h/o Bechets Disease, Ehler Danlos disease, IGA deficiency, Osteoarthritis, Head melanoma, Chronic pain, Myopathy, Neuropathy, Migraine, presenting for new patient evaluation, hematuria. She has experienced recurrent urinary tract infections over the past two years, with concurrent difficulties in urination, including incomplete voiding and sporadic urinary leakage. She states that she has pelvic prolapse and we will need to push her bladder back into the vagina to allow adequate emptying of the bladder and sometimes when she is urinating. Urinalysis today reveals 1+ blood, without leukocytes or bacteria. 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 She complains of intermittent pain with urination as well as she has seen dark specks and dark colored urine which she attributes to blood in the urine. I have discussed further evaluation with outpatient office cystoscopy. Additionally, management of pelvic organ prolapse requires further evaluation from urogynecology, and an interim pessary fitting was suggested to alleviate symptoms. She is requesting Prescription for lidocaine jelly to provide relief of pain related to vaginal mucosal tears. Patient has family history of breast cancer, aunt, we will hold on local vaginal estrogen therapy at this time. Feverish sensation during urination; no burning pain noted. Results - Urinalysis: Leukocytes negative, blood 1+. - CT Scan (abdomen and pelvis) from 03/25/24: Kidneys normal, no calculi noted, bladder unremarkable. 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] Personal history of malignant melanoma of skin Muscle spasm of back Chronic pain syndrome Generalized anxiety disorder Major depressive disorder, single episode, in full remission Surgical History H/O right wrist surgery Hx laparoscopic cholecystectomy (10/22/23) Hx of tonsillectomy History of appendectomy Social History Household Members: Spouse and Family Housing: House Are you a primary patient care representative to a significant other at home: No Do you presently have visiting nurse or other home services: No Alcohol intake: current Alcohol intake frequency: holidays/special occasions only Patient Tobacco Use Status: Former Tobacco user Tobacco use type: Cigarette e-Cigarette/Vaping Use: Currently Using Second Hand Smoke Exposure: Yes Substance Use Type: Other and Caffiene Advance Directives Date on File: 10/29/23 service: No Current occupational status: disabled Cognitive needs: Yes (Walker, Cane) Hearing needs: No Vision needs: Yes (Glasses) Review of Systems Const All systems reviewed & are unremarkable except as noted in HPI and below Reports no additional complaints Eyes Reports no additional complaints ENT Reports no additional complaints Card Reports no additional complaints Resp Reports no additional complaints GI Reports no additional complaints Reports as per HPI Musc Reports no additional complaints Skin/Breast Reports system reviewed and no additional complaints, except as documented Neuro Reports no additional complaints Psych Reports no additional complaints Endo Reports no additional complaints Kyler/Lymph Reports no additional complaints Aller/Immun Reports no additional complaints Physical Exam Const General: cooperative, healthy appearing and no acute distress Orientation/consciousness: patient oriented x3 HEENT Head: Yes normal to inspection, Yes normocephalic and Yes atraumatic Eyes Conjunctivae: conjunctivae normal Neck Neck: Yes normal visual inspection and Yes trachea midline Chest Chest palpation & inspection: normal inspection of the chest Resp Effort & Inspection: normal respiratory effort GI Inspection: Yes normal to inspection Neuro General: patient oriented x3 Extrem General: No edema Psych Appearance: grossly normal Office Procedures Post Void Residual Post Residual Void Post Void Residual (PVR): 12 [id number] Void Residual by ultrasound Results AMB Urinalysis, Automated UA Leukoctes 0 Nicole/uL Last Edit by Crista Godwintiz on 06/23/24 16:29 UA Nitrite Negative Last Edit by Crystal Shafer on 06/23/24 16:29 UA Urobilinogen 1 mg/dL Last Edit by Crystal Shafer on 06/23/24 16: UA Protein 15 mg/dL Last Edit by Crystal Shafer on 06/23/24 16:29 UA pH 6.5 Last Edit by Crystal Shafer on 06/23/24 16:29 UA Blood 25 Ankur/uL Last Edit by Crystal Shafer on 06/23/24 16:29 UA Specific [place] 1.015 Last Edit by Crystal Sahfer on 06/23/24 16: UA Ketone Negative Last Edit by Crystal Shafer on 06/23/24 16: UA Bilirubin 0 mg/dL Last Edit by Crystal Shafer on 06/23/24 16: UA Glucose 0 mg/dL Last Edit by Crystal Shafer on 06/23/24 16:29 Results Reviewed Results Reviewed: Date of Service: 03/25/24 EXAMINATION: CT ABDOMEN AND PELVIS WITH CONTRAST CLINICAL INFORMATION: Diffuse abdominal pain, nausea and vomiting, flank pain. COMPARISON: 10/18/2023. TECHNIQUE: Multidetector volumetric images were obtained from the superior aspect of the liver through the pubic symphysis following administration 85 mL of Omnipaque 350 intravenous contrast. Sagittal and coronal reformatted images were obtained on the technologist's workstation. Oral contrast: No This CT examination was performed using dose optimization techniques as appropriate, variously including the following: *Automated exposure control *Adjustment of mA and/or kV according to patient size (this includes techniques or standardized protocols for targeted exams where dose is matched to indication/reason for exam; i.e. extremities or head) *Use of iterative reconstruction technique FINDINGS: LUNG BASES: Diffuse peribronchial thickening in the lung bases, most notable left lower lobe. Associated centrilobular nodular foci of airspace disease right middle lobe, left lower lobe, and to a lesser degree right lower lobe, in keeping with bronchopneumonia. No effusions. LIVER, GALLBLADDER, AND BILIARY TREE: The liver is normal in size, shape, and attenuation. No suspicious focal hepatic lesion. Minimal focal fatty infiltration abutting the falciform ligament. There is mild intra and extrahepatic biliary dilatation, most likely representing post cholecystectomy state. The common bile duct in the pancreatic head region measures 10 mm in diameter. Smooth tapering into the papilla. No change in these findings. Gallbladder is surgically absent. PANCREAS: Unremarkable. SPLEEN: Mildly enlarged measuring 14.0 x 11.7 cm. ADRENAL GLANDS: Unremarkable. KIDNEYS AND URETERS: The kidneys are normal in size, shape, and attenuation. No hydronephrosis, hydroureter, or calculi seen. No perinephric stranding. BLADDER: Unremarkable. GASTROINTESTINAL TRACT: The small and large bowel are unremarkable. The appendix is likely surgically absent. ABDOMINAL WALL: No significant hernia is appreciated. LYMPH NODES: None enlarged by size criteria. VASCULAR: Unremarkable. PELVIC VISCERA: The uterus and adnexa are unremarkable. OSSEOUS STRUCTURES: No suspicious lytic or blastic bone lesions. Mild chronic superior endplate concavities T10 and T9. IMPRESSION: 1. Findings of bronchopneumonia in the lung bases. 2. No acute findings in the abdomen or pelvis. 3. Mild splenic enlargement, uncertain etiology. 4. Stable ancillary findings as discussed. Assessment & Plan Assessment & Plan (1) Prolapse of female pelvic organs: Code(s): N81.9 - Female genital prolapse, unspecified Category: Medical (2) Hematuria: Code(s): R31.9 - Hematuria, unspecified Category: Medical Qualifiers: Hematuria type: unspecified type Qualified Code(s): R31.9 - Hematuria, unspecified (3) Recurrent UTI: Code(s): N39.0 - Urinary tract infection, site not specified Category: Medical (4) History of pyelonephritis: Code(s): Z87.448 - Personal history of other diseases of urinary system Category: Medical Plan - urine cytology as recommended. - Schedule the outpatient cystoscopy. - lidocaine jelly for mucosal discomfort as needed. - Follow-up with urogynecology for prolapse evaluation, trial of pessary fitting on office follow-up. - Report any new or worsening symptoms promptly. Orders: Orders Urine Cytology Today N39.0 - Urinary tract infection, site not specified AMB Urinalysis Automated Today Z13.9 - Encounter for screening, unspecified Patient Instructions: The patient had an opportunity to ask questions regarding treatment plan. The patient expressed understanding and agreement with the above treatment plan. The patient is aware they should contact our office by phone for worsening of their current condition or the appearance of new symptoms. Compliance is encouraged with any medications and followup testing that is ordered. It is a privilege to be allowed the opportunity to participate in the urologic care of your patient. If you have any questions or concerns regarding treatment for the above conditions please do not hesitate to contact me. The office telephone contact is [phone]. This note is constructed in part using voice recognition software. While every effort has been made to ensure accuracy slot manager errors may have been included. Yours sincerely, Maci Gonzalez MD Scribe Plan - Not visible on output: Patient was informed and verbally consented to the use of an ambient scribe for clinic note documentation during this visit. Coding Level of Care Code New Pt Level 4 (42233) Diagnoses Prolapse of female pelvic organs N81.9 Hematuria, unspecified type R31.9 Hematuria type: unspecified type Recurrent UTI N39.0 History of pyelonephritis Z87.448 CPT Codes Post Residual Void - PVR CPT Code: 25064-Ahar Void Residual by ultrasound ([id number])
--- OUTSIDE RECORDS SUMMARY | 2024-06-23 11:47 | XMS_ITS | Encounter Summary ---
Author Organization [facility] Address [address] [place] [address] Care Team Providers Care Senior Principal Name Role Phone Ana Cortez Primary Care Provider [phone] Encounter Details Date Type Department Care Team (Late st Contact Info) Description 08/11/2022 Orders Only [facility] [address] [place] [address] Brenda Willard, DO [address] [place], [place] [id number] Social History Tobacco Use Types Packs/Day Years [...] on filedocumented in this encounter Care Teams Senior Principal Relationship Specialty Start Date End Date Ana Cortez [address] [place] [address] PCP - General 04/10/23 documented as of this encounter
--- OUTSIDE RECORDS SUMMARY | 2024-06-23 11:47 | XMS_ITS | Clinical Summary ---
Author Organization [facility] Address [address] [place] [address] Care Team Providers Care Etl Software Engineer Name Role Phone Ana Cortez Primary Care Provider [phone] Allergies Active Allergy Reactions Criticality Noted Date [...] Assessment & Plan: Will be scheduled with [facility] GI. Saw Dr. Reyes who recommended work up of potential GI causes of her pain prior to diagnostic laparoscopy. Asthma 09/24/2013 Encounters Date Type Department Care Team Description 05/28/2024 Refill [facility] [address] [place] [phone] Employment Trainer: Pushpa Amin, ALONSO Dean from Last 3 [...] Insurance [employer] Care Teams Etl Software Engineer Relationship Specialty Start Date End Date Ana Cortez [address] [place] [address] PCP - General 04/10/23
--- OUTSIDE RECORDS SUMMARY | 2024-06-23 11:47 | XMS_ITS | Clinical Summary ---
Author Organization [facility] Address [address] [place] [address] Care Team Providers Care Storehouse Clerk Name Role Phone Ana Cortez NP Primary [...] age to complete this topic Care Teams Storehouse Clerk Relationship Specialty Start Date End Date Ana Cortez NP [address] [address] PCP - General Family Medicine 09/21/22
--- OUTSIDE RECORDS SUMMARY | 2024-06-23 11:47 | XMS_ITS | Clinical Summary ---
Author Organization [address] Address [address] [place] [phone] Phone Care Team Providers Care Aircraft Fueler Name Role Phone Genesis Davis MD Primary Care Provider [phone] Allergies Active Allergy Reactions Criticality Noted Date [...] obesity with BMI of 4 0.0-44.9, adult ([facility] [place], [facility] [place]) 11/23/2023 Allergic conjunctivitis of both eyes 06/19/2019 Perennial allergic rhinitis 06/19/2019 Arthralgia 04/09/2019 Lower abdominal pain 04/09/2019 IgA deficiency ([facility] [place], [facility]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 Melanoma in situ ([facility] [place], [facility] [place]) 03/2018 Nevus 08/12/2018 Insulin controlled gestation [...] APPENDECTOMY PROCEDURE: HISTORICAL APPENDECTOMY ESOPHAGOGASTRODUODENOSCOPY 03/29/15 PROCEDURE: SD EGD TRANSORAL BIOPSY SINGLE/MULTIPLE; COMMENT: mild distal [...] Info) Description 07/15/2024 2:30 PM EDT Appointment [facility] Xray [address] [place] [address] Health Maintenance Due Date Last [...] RESULTING AGENCY - 06/20/2017 4:55 PM EDT [id number] THINPREP PAP, IMAGED AND CELL BLOCK: NEGATIVE [...] Relevant to Health Maintenance Insurance [facility] Care Teams Aircraft Fueler Relationship Specialty Start Date End Date Genesis Davis MD [address] [place] [phone] [facility] - General 08/31/23
--- OUTSIDE RECORDS SUMMARY | 2024-06-23 11:47 | XMS_ITS | Referral Summary ---
Author Organization [facility] Address [address] [place] [address] Care Team Providers Care Lacquer Sprayer Name Role Phone Ana Cortez Primary Care Provider [phone] Encounters Date Type Department Care Team Description 05/28/2024 Refill [facility] [address] [place] [address] [phone] Crown Ironer: Pushpa Amin, ALONSO Dean from Last 3 [...] & Plan: Will be scheduled with [facility] GI. Saw Dr. Reyes who [...] Insurance [employer] Care Teams Lacquer Sprayer Relationship Specialty Start Date End Date Ana Cortez [address] [place] [address] PCP - General 04/10/23
== END 2024-06-23 12:00 | disposition home or self-care (01) ==
LOC: HO.HUSH 10:59
PROVIDERS: PCP Internal Medicine; Visit Provider Urology
DX: Z13.9 Encounter for screening, unspecified (principal)

== ENCOUNTER 2024-06-23 10:59 | Outpatient (REF) | payer OTHER, SELFPAY ==
--- OUTSIDE RECORDS SUMMARY | 2024-06-23 14:05 | XMS_ITS | Clinical Summary ---
Author Organization [address] Address [address] [place] [phone] Phone Care Team Providers Care Cathode Maker Name Role Phone Genesis Davis MD Primary Care Provider [phone] Allergies Active Allergy Reactions Criticality Noted Date [...] obesity with BMI of 4 0.0-44.9, adult ([facility] V24, [facility] V28) 11/23/2023 Allergic conjunctivitis of both eyes 06/19/2019 Perennial allergic rhinitis 06/19/2019 Arthralgia 04/09/2019 Lower abdominal pain 04/09/2019 IgA deficiency ([facility] V24, [facility]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 Melanoma in situ ([facility] V24, [facility] V28) 03/2018 Nevus 08/12/2018 Insulin controlled gestation [...] APPENDECTOMY PROCEDURE: HISTORICAL APPENDECTOMY ESOPHAGOGASTRODUODENOSCOPY 03/29/15 PROCEDURE: [place] EGD TRANSORAL BIOPSY SINGLE/MULTIPLE; COMMENT: mild distal [...] Info) Description 07/15/2024 2:30 PM EDT Appointment [facility] Xray [address] [place] [address] Health Maintenance Due Date Last [...] RESULTING AGENCY - 06/20/2017 4:55 PM EDT [id number] THINPREP PAP, IMAGED AND CELL BLOCK: NEGATIVE [...] Most Recently Relevant to Health Maintenance Insurance [facility] Care Teams Cathode Maker Relationship Specialty Start Date End Date Genesis Davis MD [address] [place] [id number] [facility] - General 08/31/23
--- OUTSIDE RECORDS SUMMARY | 2024-06-23 14:05 | XMS_ITS | Clinical Summary ---
Author Organization [facility] Address [address] [place] [address] Care Team Providers Care Senior Sales Operations Analyst Name Role Phone Ana Cortez NP Primary Care Provider [phone] Allergies Active Allergy Reactions Criticality Noted Date [...] age to complete this topic Care Teams Senior Sales Operations Analyst Relationship Specialty Start Date End Date Ana Cortez NP [address] [phone] PCP - General Family Medicine 09/21/22
--- OUTSIDE RECORDS SUMMARY | 2024-06-23 14:05 | XMS_ITS | Clinical Summary ---
Author Organization [facility] Address [address] [place] [address] Care Team Providers Care Operation Agent Name Role Phone Ana Cortez Primary Care Provider [phone] Allergies Active Allergy Reactions Criticality Noted Date [...] Assessment & Plan: Will be scheduled with [facility] GI. Saw Dr. Reyes who recommended work up of potential GI causes of her pain prior to diagnostic laparoscopy. Asthma 09/24/2013 Encounters Date Type Department Care Team Description 05/28/[address] [facility] [address] [place] [phone] Integrated Circuit Design Engineer: Pushpa Amin, ALONSO Dean from Last 3 [...] Insurance [employer]ICAID [employer] Care Teams Operation Agent Relationship Specialty Start Date End Date Ana Cortez [address] [place] [address] PCP - General 04/10/23
--- OUTSIDE RECORDS SUMMARY | 2024-06-23 14:05 | XMS_ITS | Encounter Summary ---
Author Organization [facility] Address [address] [place] [address] Care Team Providers Care Assistant Executive Housekeeper Name Role Phone Ana Cortez Primary Care Provider [phone] Encounter Details Date Type Department Care Team (Late st Contact Info) Description 08/11/2022 Orders Only [facility] [address] [place] [address] Brenda Willard, DO [address] [place], [place] [phone] Social History Tobacco Use Types Packs/Day Years [...] on filedocumented in this encounter Care Teams Assistant Executive Housekeeper Relationship Specialty Start Date End Date Ana Cortez [address] [place] [address] PCP - General 04/10/23 documented as of this encounter
--- OUTSIDE RECORDS SUMMARY | 2024-06-23 14:05 | XMS_ITS | Referral Summary ---
Author Organization [facility] Address [address] [place] [address] Care Team Providers Care Automatic Glove Former Name Role Phone Ana Cortez Primary Care Provider [phone] Encounters Date Type Department Care Team Description 05/28/2024 Refill [facility] [address] [place] [address] [phone] Sports Equipment Repairer: Pushpa Amin, ALONSO Dean from Last 3 [...] Assessment & Plan: Will be scheduled with [facility] GI. Saw Dr. Reyes who recommended [...] Insurance [employer] MEDICAID WE[employer]ICAID Care Teams Automatic Glove Former Relationship Specialty Start Date End Date Ana Cortez [address] [place] [address] PCP - General 04/10/23
[2024-06-23 16:30] LABS: Urine Cytology See Pathology rpt
== END 2024-06-23 11:00 | disposition home or self-care (01) ==
LOC: HO.LAB 10:59
PROVIDERS: PCP Internal Medicine; Visit Provider Urology
DX: N39.0 Urinary tract infection, site not specified (principal)
CPT/HCPCS: 51798; 81003; 88112

== ENCOUNTER 2024-07-20 17:09 | Outpatient (REF) | payer OTHER, SELFPAY ==
--- NOTE | ~2024-07-20 | MR_ITS ---
EXAMINATION: MR KNEE WITHOUT AND WITH CONTRAST, Contrast: 6.5 mm gadolinium based contrast CLINICAL INFORMATION: Ehler-Danlos syndrome, chronic pain, frequent falls, assisted walking, symptoms worsening the last 3 weeks, not improved with steroid COMPARISON: None available. TECHNIQUE: Multiplanar multisequence imaging was performed on a high-field scanner before and after contrast injection. FINDINGS: Menisci: There is oblique intermediate signal in the posterior horn of the medial meniscus extending to the peripheral margin where there is a multiloculated para meniscal cyst. Signal probably extends to the undersurface. Anterior horn lateral meniscus demonstrates oblique intermediate signal extending to the undersurface. ACL/PCL: ACL is intact. There is a small cyst near the tibial insertion of the ACL demonstrates low T1 signal and high signal on fluid sensitive sequences likely representing small ganglia. There is a 3 x 7 mm ganglion on the superior surface of the proximal portion of PCL. PCL is otherwise unremarkable. Extensor mechanism: There is a physiologic volume of joint fluid. There is moderate edema like signal in the superior lateral fat pad of Hoffa. Extensor mechanism is otherwise unremarkable. MCL/LCL: MCL is intact and unremarkable. LCL complex is intact and unremarkable. Articular cartilage: Punctate high signal in the articular cartilage in the median ridge at the junction of middle third and third patella likely represents small surface fissure involving less than half the thickness of cartilage. Patellar cartilage is intact otherwise. Trochlear cartilage is intact. Lateral compartment articular cartilage is intact. Medial compartment articular cartilage is intact. Bones/Marrow: There are no marrow replacing lesions. Soft tissues: Nonspecific edema like signal reticulates the subcutaneous soft tissues anterior to patellar tendon and the medial femoral condyle and medial tibial plateau. Contrast: There is mild hyperenhancement of edema like signal superior lateral upper thigh and in the subcutaneous soft tissues. MR/MR knee RT wo/w con IMPRESSION: There is an oblique tear (meniscal cyst involving posterior horn the medial meniscus that probably extends to the undersurface, but this extends to the peripheral margin. There is an oblique tear of the anterior horn of the lateral meniscus that extends to the undersurface. Patellar tendon-lateral femoral condyle friction syndrome: There is edema like signal in the superior lateral fat of Hoffa. There is a small shallow fissure in the articular cartilage involving the medial retropatellar, at the junction of mid third upper third patella. Electronically signed by: Quinten Ruff MD 07/21/2024 11:13 AM EDT
--- OUTSIDE RECORDS SUMMARY | 2024-07-20 17:12 | XMS_ITS | Referral Summary ---
Author Organization [facility] Address [address] [place] [address] Care Team Providers Care Babcock Tester Name Role Phone Ana Cortez Primary Care Provider [phone] Encounters Date Type Department Care Team Description 05/28/2024 Refill [facility] [address] [place] [address] [phone] Test Hole Driller: Pushpa Amin, ALONSO Dean from Last 3 [...] Assessment & Plan: Will be scheduled with [facility] GI. Saw Dr. Reyes who [...] Insurance [employer] MEDICAID [employer]ICA[employer] Care Teams Babcock Tester Relationship Specialty Start Date End Date Ana Cortez [address] [place] [address] PCP - General 04/10/23
[2024-07-20] MEDS: gadobutroL 7.5 ML VIAL IVPUSH (17:53)
== END 2024-07-20 17:10 | disposition home or self-care (01) ==
LOC: HO.MRI 17:09
PROVIDERS: Visit Provider Internal Medicine Rheumatology
DX: M35.7 Hypermobility syndrome (principal); M17.0 Bilateral primary osteoarthritis of knee; M35.2 Behcet's disease
CPT/HCPCS: 73723; A9585

== ENCOUNTER → 2024-07-20 17:17 | Outpatient (BNV) | payer OTHER, SELFPAY | PROVIDERS: Visit Provider Radiology Diagnostic Radiology | DX: S83.281A Other tear of lateral meniscus, current injury, right knee, initial encounter (principal); M22.2X1 Patellofemoral disorders, right knee | CPT/HCPCS: 73723 ==

== ENCOUNTER 2024-07-25 13:13 | Outpatient (AMB) | payer OTHER, SELFPAY ==
--- NOTE | 2024-07-25 13:24 | A.OFFVIS_ITS ---
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 Patient reports she constantly has repeat injuries to her knees. She usually wears hinged knee braces to keep them stable and prevent them from popping put of place and reports this helps. Without her knee braces she would have at least 5-10 dislocations a day, with the brace she has it 1-3 times a day. Hx of Ehler's- Danlos syndrome. She applies lidocaine cream on her knees which gives mild relief. Oxycodone provides her relief in the knees as well. She says the last 3 weeks have worsened, in the last 3 days she has not been able to applies pressure in the right knee. She expresses ice and elevation as much as possible. She utilized a cane at home for ambulation which helps her not apply full pre ssure on the knee which exacerbates the pain. She reports she has also experiences foot drop in the right foot. when he leg is at a 90 degree angle she feels some discomfort, with no movement her pain is dull on the anterior and posterior aspect of right knee. If she applies any pressure, tries to ambulate with full weight, or fully extend her land she says she has 10 out of 10 pain in the right knee. She is having pins and needles in the right toes and foot when she feels her discolorations and her right foot has been dragging more these past 3 days. Her foot will catch on the steps causing her to trip and bang her knees. MR/MR knee RT wo/w con IMPRESSION: There is an oblique tear (meniscal cyst involving posterior horn the medial meniscus that probably extends to the undersurface, but this extends to the peripheral margin. There is an oblique tear of the anterior horn of the lateral meniscus that extends to the undersurface. Patellar tendon-lateral femoral condyle friction syndrome: There is edema like signal in the superior lateral fat of Hoffa. There is a small shallow fissure in the articular cartilage involving the medial retropatellar, at the junction of mid third upper third patella. Allergies hydroxychloroquine [From Plaquenil] Allergy (Intermediate, Verified 07/25/24 13:37) Vomiting leflunomide Allergy (Intermediate, Verified 07/25/24 13:37) Diarrhea adhesive tape Allergy (Unknown, Verified 07/25/24 13:37) Unknown erythromycin base [ERYTHROMYCIN BASE] Allergy (Unknown, Verified 07/25/24 13:37) UNKNOWN latex [LATEX] Allergy (Unknown, Verified 07/25/24 13:37) UNKNOWN acetaminophen [From Tylenol] Adverse Reaction (Unknown, Verified 07/25/24 13:37) Unknown Medication List - Last Reconciled 07/25/24 by Fredy Vogel PA-C apremilast (Otezla) 30 mg PO BID azelastine 1 spray intranasal BID colchicine 0.6 mg PO BID 30 days dextroamphetamine-amphetamine 20 mg 1 tab PO BID diazepam 5 mg PO TID PRN dicyclomine 20 mg (2 x 10 mg) PO BID PRN 90 days duloxetine 60 mg PO DAILY duloxetine 30 mg PO DAILY epinephrine (EpiPen) 0.3 mg (0.3 mL) IM Q10M PRN famotidine 20 mg PO BID gabapentin 900 mg (1.5 x 600 mg) PO TID glucosamine-chondroitin 250-200 mg (Osteo Bi-Flex) 2 tabs PO TID leg brace (Knee Support Brace) wear as directed. Bilateral knee hinged brace with patella stabilization. Dx: Kings-Danlos Syndrome lidocaine HCl 2% 1 appl topical BID-TID PRN Magic Mouthwash Diphen/Lido/Antacid 1:1:1 240 mL orally; Lidocaine Viscous 2 % 80mL; diphenhydramine 12.5 mg/5 mL 80mL; aluminum-mag hydrox-simeth [id number]/5mL 80mL Swish, gargle and split 5 mL every 4-6 hours as needed. 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 She typically uses hinge knee braces but the lately the pressure of the brace has been too much and uncomfortable. The braces do help reduce the dislocations. She states approx 3 weeks ago she was in a deep squat she felt a severe pain in the knee and this has causes significant limitations . She is currently in PT for strengthing of her lower legs and has been improving, but with the recent incident the right knee has been causing increased pain , weakness, and she has a sharp pain that does cause ongoing limitations. 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] Personal history of malignant melanoma of skin Muscle spasm of back Chronic pain syndrome Generalized anxiety disorder Major depressive disorder, single episode, in full remission Surgical History H/O right wrist surgery Hx laparoscopic cholecystectomy (10/22/23) Hx of tonsillectomy History of appendectomy Social History Household Members: Spouse and Family Housing: House Are you a primary acute care clinical nurse specialist to a significant other at home: No Do you presently have visiting nurse or other home services: No Alcohol intake: current Alcohol intake frequency: holidays/special occasions only Patient Tobacco Use Status: Former Tobacco user Tobacco use type: Cigarette e-Cigarette/Vaping Use: Currently Using Second Hand Smoke Exposure: Yes Substance Use Type: Other and Caffiene Advance Directives Date on File: 10/29/23 service: No Current occupational status: disabled Cognitive needs: Yes (Walker, Cane) Hearing needs: No Vision needs: Yes (Glasses) Review of Systems Const All systems reviewed & are unremarkable except as noted in HPI and below Physical Exam Vital Signs: BMI result Body Mass Index 23.4 Const General: cooperative and no acute distress Orientation/consciousness: patient oriented x3 Resp Effort & Inspection: normal respiratory effort and able to speak in complete sentences Cardio Peripheral pulses: Peripheral pulses 2+ throughout Neuro General: patient oriented x3 Extrem Other: Right knee normal to inspection with hypermobile patella. Tenderness over the medial joint line. Full ROM . Calf supple nontender, NVI. Results Reviewed Results Reviewed: MR knee RT wo/w con IMPRESSION: There is an oblique tear (meniscal cyst involving posterior horn the medial meniscus that probably extends to the undersurface, but this extends to the peripheral margin. There is an oblique tear of the anterior horn of the lateral meniscus that extends to the undersurface. Patellar tendon-lateral femoral condyle friction syndrome: There is edema like signal in the superior lateral fat of Hoffa. There is a small shallow fissure in the articular cartilage involving the medial retropatellar, at the junction of mid third upper third patella. Assessment & Plan Assessment & Plan (1) Tear of meniscus of right knee as current injury: Code(s): S83.206A - Unspecified tear of unspecified meniscus, current injury, right knee, initial encounter Category: Medical Plan: I discussed with the patient the findings on her MRI which include some patellofemoral disease along with a meniscus tear. She appears to be symptomatic with the meniscus tear which is limiting her ability to progress in physical therapy for her EDS. I explained to the patient surgical intervention for a meniscus tear would be a knee arthroscopy which would help to alleviate the meniscus type symptoms however she may still have some mechanical symptoms along the patellofemoral joint and this will not improve her instability. She does express understanding and is interested in this procedure. I will discuss the case with Dr. Gay further given her past medical history to see if she is a surgical candidate. The patient does express understanding and will follow up as planned. Coding Level of Care Code New Pt Level 3 (88626) Complex EM visit Add On G2211 Diagnoses Tear of meniscus of right knee as current injury S83.206A
--- OUTSIDE RECORDS SUMMARY | 2024-07-25 13:33 | XMS_ITS | Referral Summary ---
Author Organization [facility] Address [address] [place] [address] Care Team Providers Care Ethylene Plant Helper Name Role Phone Ana Cortez Primary Care Provider [phone] Encounters Date Type Department Care Team Description 05/28/2024 Refill [facility] [address] [place] [address] [id number] Linting Machine Operator: Pushpa Amin, ALONSO Dean from Last [...] Assessment & Plan: Will be scheduled with [facility] GI. Saw Dr. Reyes who [...] Insurance [employer] Care Teams Ethylene Plant Helper Relationship Specialty Start Date End Date Ana Cortez [address] [place] [address] PCP - General 04/10/23
[2024-07-25 13:36] VITALS: BMI 23.4
== END 2024-07-25 14:50 | disposition home or self-care (01) ==
LOC: HO.HOS 13:13
PROVIDERS: Visit Provider Physician Assistant
DX: S83.206A Unspecified tear of unspecified meniscus, current injury, right knee, initial encounter (principal)
CPT/HCPCS: 99203; G2211

== ENCOUNTER → 2024-07-25 13:13 | Outpatient (BNVA) | payer OTHER, SELFPAY | PROVIDERS: Visit Provider Physician Assistant | DX: M25.561 Pain in right knee (principal); S83.206A Unspecified tear of unspecified meniscus, current injury, right knee, initial encounter; R53.1 Weakness | CPT/HCPCS: 99202 ==

== ENCOUNTER 2024-08-01 14:58 | Outpatient (AMB) | payer OTHER, SELFPAY ==
--- NOTE | 2024-08-01 14:39 | A.OFFVIS_ITS ---
Intake Visit Reasons: TH- RT knee injury, discuss options Intake Note: Marie is a 34 year old female who presents today for a right knee MRI review. Patient mentions that her pain is getting worse. Allergies hydroxychloroquine (From Plaquenil) Allergy (Intermediate, Verified 08/01/24 15:01) Vomiting leflunomide Allergy (Intermediate, Verified 08/01/24 15:01) Diarrhea adhesive tape Allergy (Unknown, Verified 08/01/24 15:01) Unknown erythromycin base (ERYTHROMYCIN BASE) Allergy (Unknown, Verified 08/01/24 15:01) UNKNOWN latex (LATEX) Allergy (Unknown, Verified 08/01/24 15:01) UNKNOWN acetaminophen (From Tylenol) Adverse Reaction (Unknown, Verified 08/01/24 15:01) Unknown Medication List - Last Reviewed 08/01/24 by Blanca Braun apremilast (Otezla) 30 mg PO BID azelastine 1 spray intranasal BID colchicine 0.6 mg PO BID 30 days dextroamphetamine-amphetamine 20 mg 1 tab PO BID diazepam 5 mg PO TID PRN dicyclomine 20 mg (2 x 10 mg) PO BID PRN 90 days duloxetine 60 mg PO DAILY duloxetine 30 mg PO DAILY epinephrine (EpiPen) 0.3 mg (0.3 mL) IM Q10M PRN famotidine 20 mg PO BID gabapentin 900 mg (1.5 x 600 mg) PO TID glucosamine-chondroitin 250-200 mg (Osteo Bi-Flex) 2 tabs PO TID leg brace (Knee Support Brace) wear as directed. Bilateral knee hinged brace with patella stabilization. Dx: Kings-Danlos Syndrome lidocaine HCl 2% 1 appl topical BID-TID PRN Magic Mouthwash Diphen/Lido/Antacid 1:1:1 240 mL orally; Lidocaine Viscous 2 % 80mL; diphenhydramine 12.5 mg/5 mL 80mL; aluminum-mag hydrox-simeth [id number]/5mL 80mL Swish, gargle and split 5 mL every 4-6 hours as needed. metoclopramide HCl 5 mg (5 mL) PO TID 5 days mupirocin 2% 1 appl topical BID PRN nabumetone 500 mg PO BID 30 days neomycin-polymyxin B-dexameth 3.5mg/mL-10,000 unit/mL-0.1 % 1 drp ophthalmic (eye) Q12H ondansetron 4 mg PO BID PRN prednisolone acetate 1% drps ophthalmic (eye) prucalopride (Motegrity) 1 mg PO DAILY 90 days Shower Chair As directed tizanidine 2 mg PO Q8H PRN [transfer bench As directed] turmeric 400 mg PO DAILY walker (Ultra-Light Rollator misc) As directed [wheelchair As directed] HPI HPI TH- RT knee injury, discuss options: Details: 34-year-old female presents for right knee telehealth MRI review. The patient states the injury happened 3 months ago where she had a deep bending tearing sensation and it was approximately 3-4 weeks ago when she had her patella dislocate and she had worsening symptoms. She does state these symptoms in the knee are preventing her from performing daily activities and even attending physical therapy for her EDS. 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] Personal history of malignant melanoma of skin Muscle spasm of back Chronic pain syndrome Generalized anxiety disorder Major depressive disorder, single episode, in full remission Surgical History H/O right wrist surgery Hx laparoscopic cholecystectomy (10/22/23) Hx of tonsillectomy History of appendectomy Social History Household Members: Spouse and Family Housing: House Are you a primary home care nurse to a significant other at home: No Do you presently have visiting nurse or other home services: No Alcohol intake: current Alcohol intake frequency: holidays/special occasions only Patient Tobacco Use Status: Former Tobacco user Tobacco use type: Cigarette e-Cigarette/Vaping Use: Currently Using Second Hand Smoke Exposure: Yes Substance Use Type: Other and Caffiene Advance Directives Date on File: 10/29/23 service: No Current occupational status: disabled Cognitive needs: Yes (Walker, Cane) Hearing needs: No Vision needs: Yes (Glasses) Review of Systems Const All systems reviewed & are unremarkable except as noted in HPI and below Physical Exam Resp Effort & Inspection: normal respiratory effort and able to speak in complete sentences Telehealth Telehealth Telehealth Platform: Telephone Location of provider rendering services: practice address Location of patient: address on file Patient Identification confirmed using: Name, : Yes Telehealth method: voice only Patient verbally consented to treatment: Yes Patient verbally consented to billing insurance company: Yes Patient informed of any privacy concerns related to visit: Yes Minutes spent on Phone/Video with Pt.: 10 Results Reviewed Results Reviewed: MR knee RT wo/w con IMPRESSION: There is an oblique tear (meniscal cyst involving posterior horn the medial meniscus that probably extends to the undersurface, but this extends to the peripheral margin. There is an oblique tear of the anterior horn of the lateral meniscus that extends to the undersurface. Patellar tendon-lateral femoral condyle friction syndrome: There is edema like signal in the superior lateral fat of Hoffa. There is a small shallow fissure in the articular cartilage involving the medial retropatellar, at the junction of mid third upper third patella. Assessment & Plan Assessment & Plan (1) Tear of meniscus of right knee as current injury: Code(s): S83.206A - Unspecified tear of unspecified meniscus, current injury, right knee, initial encounter Category: Medical Plan: I discussed the extent of the injury to the patient and options available which include surgical intervention. I explained the procedure in detail along with the length of recovery and rehab course. I explained the risk, benefits and alternatives. Risk including, but not limited to infection, blood clots, bl eeding, ongoing pain and stiffness. I answered all their questions and with their understanding they have consented to move forward with right knee arthroscopy with Dr Gay. The patient will be booked accordingly. Coding Level of Care Code Tele Est Pt Level 4 (95869) Complex EM visit Add On G2211 Diagnoses Tear of meniscus of right knee as current injury S83.206A
--- OUTSIDE RECORDS SUMMARY | 2024-08-01 15:00 | XMS_ITS | Referral Summary ---
Author Organization [facility] Address [address] [place] [address] Care Team Providers Care Blender Laborer Name Role Phone Ana Cortez Primary Care Provider [phone] Encounters Date Type Department Care Team Description 05/28/2024 Refill [facility] Ot[facility] [address] [place] [address] [phone] Cryptological Technician: Pushpa Amin, ALONSO Dean from Last [...] Assessment & Plan: Will be scheduled with [facility] GI. Saw Dr. Reyes who [...] 96 09/28/2022 1:14 PM EDT Temperature 36.1 C (96.9 F) 07/19/2022 9:43 AM EDT Respiratory Rate 18 07/19/2022 9:43 AM EDT Oxygen Saturation - - Inhaled Oxygen Concentration - - Weight 71 kg (156 lb 8.4 oz) 07/19/2022 9:43 AM EDT Height 162.6 cm (5' 4 ) 07/19/2022 9:43 AM EDT Body Mass Index 26.87 07/19/2022 9:43 AM EDT Plan of Treatment Not on file Insurance [employer] [place] [id number] [employer] Care Teams Blender Laborer Relationship Specialty Start Date End Date Ana Cortez [address] [place] [address] PCP - General 04/10/23
== END 2024-08-01 16:05 | disposition home or self-care (01) ==
LOC: HO.HOS 14:58
PROVIDERS: Visit Provider Physician Assistant
DX: S83.206A Unspecified tear of unspecified meniscus, current injury, right knee, initial encounter (principal)
CPT/HCPCS: 99214; G2211

== ENCOUNTER → 2024-08-01 14:58 | Outpatient (BNVA) | payer OTHER, SELFPAY | PROVIDERS: Visit Provider Physician Assistant ==

== ENCOUNTER 2024-08-04 14:32 | Outpatient (REF) | payer OTHER, SELFPAY ==
[2024-08-04 16:34] LABS: MANUAL DIFF FLAG NO
[2024-08-04 17:07] LABS: Basophils Percent Auto 0.6 % (0-2); Eosinophils Absolute Auto 0.4 X10*3/uL (0.0-0.4); Eosinophils Percent Auto 5.1 % (0-4); Hematocrit 33.5 % (37.0-47.0); Hemoglobin 11.5 g/dl (12.0-16.0); Imm Gran Abs Auto 0.02 X10*3/uL (0.00-0.03); Imm Gran Pct Auto 0.3 % (0.0-0.4); Lymphocytes Absolute Auto 1.8 X10*3/uL (1.2-4.9); Lymphocytes Percent Auto 25.5 % (20-40); Mean Corpuscular HGB Conc 34.3 g/dl (31.0-35.0); Mean Corpuscular Hemoglobin 28.4 pg (27.0-33.0); Mean Corpuscular Volume 82.7 fL (80.0-98.0); Mean Platelet Volume 9.2 fL (9.4-12.3); Monocytes Absolute Auto 0.4 X10*3/uL (0.1-1.2); Monocytes Percent Auto 6.2 % (2-11); Neutrophils Absolute Auto 4.4 x10*3/uL (2.0-8.3); Neutrophils Percent Auto 62.3 % (45-73); Platelet Count 235 X10*3/uL (160-400); Red Blood Count 4.05 X10*6/uL (4.20-5.50); Red Cell Distribution Width 12.8 % (11.0-16.0); White Blood Count 7.1 X10*3/uL (4.8-10.8)
[2024-08-04 17:51] LABS: Alanine Aminotransferase 11 U/L (0-31); Aspartate Amino Transferase 17 U/L (5-31); Estimated Glomerular Filt Rate > 60; Iron 42 mcg/dL (30-160); Percent Iron Saturation 15 % (15-50); Total Iron Binding Capacity 284 mcg/dL (228-428); Unsaturated Iron Binding 242 ug/dL
[2024-08-04 18:07] LABS: TSH reflex Free T4 3.43 uIU/mL (0.32-4.0)
[2024-08-04 18:41] LABS: Cortisol Random 1.9 ug/dL
[2024-08-05 05:03] LABS: Follicle Stimulating Hormone 3.9 mIU/mL; Lutenizing Hormone 1.4 mIU/mL
[2024-08-05 06:58] LABS: Triiodothyronine T3 Free 4.2 pg/mL (2.3-4.2)
== END 2024-08-04 14:33 | disposition home or self-care (01) ==
LOC: HO.LAB 14:32
PROVIDERS: Internal Medicine Rheumatology
DX: F32.A Depression, unspecified (principal); F41.9 Anxiety disorder, unspecified; N81.9 Female genital prolapse, unspecified; M35.7 Hypermobility syndrome; M35.2 Behcet's disease; S83.206D Unspecified tear of unspecified meniscus, current injury, right knee, subsequent encounter; G43.919 Migraine, unspecified, intractable, without status migrainosus; L65.9 Nonscarring hair loss, unspecified; D80.2 Selective deficiency of immunoglobulin A [IgA]; R30.0 Dysuria; Z00.00 Encounter for general adult medical examination without abnormal findings
CPT/HCPCS: 36415; 81002; 82533; 82565; 83001; 83002; 83540; 84439; 84443; 84450; 84460; 84481; 85025; 99212

== ENCOUNTER 2024-08-04 14:32 | Outpatient (AMB) | payer OTHER, SELFPAY ==
--- NOTE | 2024-08-04 14:41 | MHC.PC.OV ---
Vital Signs 08/04/24 14:44 Height 5 ft 4.57 in Weight 151 lb 14.376 oz BMI 25.6 BP 120/70 Blood Pressure Location Lt brachial Position Sitting Pulse 73 Pulse Source Pulse Oximeter Temp 97.1 F Temp Source Temporal Artery Scan Pulse Oximetry (%) 97 Oxygen Delivery Method Room Air Intake Visit Reasons: 1 month f/u Intake Note: Patient is here to follow up on Polyarthralgia. Director Of Primary Required: No Buyer Agent: Not Required per policy Accompanied by: Self / Same As Patient Allergies hydroxychloroquine (From Plaquenil) Allergy (Intermediate, Verified 08/04/24 14:44) Vomiting leflunomide Allergy (Intermediate, Verified 08/04/24 14:44) Diarrhea adhesive tape Allergy (Unknown, Verified 08/04/24 14:44) Unknown erythromycin base (ERYTHROMYCIN BASE) Allergy (Unknown, Verified 08/04/24 14:44) UNKNOWN latex (LATEX) Allergy (Unknown, Verified 08/04/24 14:44) UNKNOWN acetaminophen (From Tylenol) Adverse Reaction (Unknown, Verified 08/04/24 14:44) Unknown Medication List - Last Reconciled 08/04/24 by Jo Ann Hebert PA-C apremilast (Otezla) 30 mg PO BID azelastine 1 spray intranasal BID colchicine 0.6 mg PO BID 30 days dextroamphetamine-amphetamine 10 mg ER (Adderall XR) 1 cap PO QAM dextroamphetamine-amphetamine 20 mg 1 tab PO BID diazepam 5 mg PO TID PRN dicyclomine 20 mg (2 x 10 mg) PO BID PRN 90 days duloxetine 60 mg PO DAILY duloxetine 30 mg PO DAILY epinephrine (EpiPen) 0.3 mg (0.3 mL) IM Q10M PRN famotidine 20 mg PO BID gabapentin 900 mg (1.5 x 600 mg) PO TID glucosamine-chondroitin 250-200 mg (Osteo Bi-Flex) 2 tabs PO TID leg brace (Knee Support Brace) wear as directed. Bilateral knee hinged brace with patella stabilization. Dx: Kings-Danlos Syndrome lidocaine 5% 1 appl topical QID PRN lidocaine HCl 2% 1 appl topical BID-TID PRN Magic Mouthwash Diphen/Lido/Antacid 1:1:1 240 mL orally; Lidocaine Viscous 2 % 80mL; diphenhydramine 12.5 mg/5 mL 80mL; aluminum-mag hydrox-simeth [id number]/5mL 80mL Swish, gargle and split 5 mL every 4-6 hours as needed. metoclopramide HCl 5 mg (5 mL) PO TID 5 days minoxidil 1.25 mg PO DAILY mupirocin 2% 1 appl topical BID PRN nabumetone 500 mg PO BID 30 days neomycin-polymyxin B-dexameth 3.5mg/mL-10,000 unit/mL-0.1 % 1 drp ophthalmic (eye) Q12H ondansetron 4 mg PO BID PRN prednisolone acetate 1% drps ophthalmic (eye) prucalopride (Motegrity) 1 mg PO DAILY 90 days Shower Chair As directed tizanidine 2 mg PO Q8H PRN [transfer bench As directed] turmeric 400 mg PO DAILY walker (Ultra-Light Rollator misc) As directed [wheelchair As directed] Tobacco use date assessed: 08/04/24 Dental Screening Dental Screen Date: 05/27/24 HPI 1 month f/u HPI Details 34-year-old female with a past medical history of polyarthralgia, asthma, Behcet's disease, myelopathy, anxiety, depression last seen 05/2024 coming in for follow up. Patient was seen by Rheumatology 05/2024 colchicine was increased to twice daily, leg braces ordered and patient was given nabumetone for pain, patient was continued on Otezla and bilateral hand x-rays were ordered. She was seen by Orthopedics 07/2024 plan to undergo meniscus tear arthroscopy. She was seen by Urology outpatient cystoscopy was ordered, urogynecology follow up planned for prolapse and pessary fitting. Patient was seen by Gastroenterology 05/2024 plan for barium swallow, trial of Reglan. Arthralgia: The patient reports severe pain in the middle knuckle, initially very painful and swollen, making it difficult to touch or move. The pain has slightly improved but persists, especially at night, causing a sensation of needing to crack the knuckles, which is painful due to swelling. Foot drop: The patient experiences cramping in the feet and ankles at night, with worsening foot drop causing tripping. A foot brace is used at night, and occasionally during the day, which provides some relief. Knee pain: The patient reports significant knee pain, impacting mobility and requiring crutches. Knee surgery is scheduled for the end of September. Hair loss: The patient has experienced significant hair loss, requiring the use of minoxidil. The hair loss is severe, with large clumps falling out, and is accompanied by thin, brittle nails. IgA deficiency: The patient has a history of IgA deficiency, with lifelong nondetectable IgA levels, and is seeking a referral to an adjunct philosophy faculty. Urinary abnormalities: The patient reports cloudy urine with white, chunky particles, despite adequate hydration. There is a plan to provide a urine sample for further analysis. [facility] Medical History Kings-Danlos disease Migraine Asthma Behcet disease with multisystem involvement TMJ (temporomandibular joint syndrome) Other specified disorders of bladder 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] Personal history of malignant melanoma of skin Muscle spasm of back Chronic pain syndrome Generalized anxiety disorder Major depressive disorder, single episode, in full remission Surgical History H/O right wrist surgery Hx laparoscopic cholecystectomy (10/22/23) Hx of tonsillectomy History of appendectomy Social History Household Members: Spouse and Family Housing: House Are you a primary home care nurse to a significant other at home: No Do you presently have visiting nurse or other home services: No Alcohol intake: current Alcohol intake frequency: holidays/special occasions only Patient Tobacco Use Status: Former Tobacco user Tobacco use type: Cigarette e-Cigarette/Vaping Use: Currently Using Second Hand Smoke Exposure: Yes Substance Use Type: Other and Caffiene Advance Directives Date on File: 10/29/23 service: No Current occupational status: disabled Cognitive needs: Yes (Wheelchair, Walker, Cane) Hearing needs: No Vision needs: Yes (Glasses) Questionnaire Thrive Questionnaire Date Thrive assessed: 05/27/24 ISAC-7 AMB Questionnaire ISAC-7 Date ISAC - 7 assessed: 05/27/24 Source: Developed by Saritha Coleman B.W. Magen, David Ramos and colleagues, with an educational gigi from [employer]. Review of Systems Const Denies body aches, Denies chills, Denies fever(s), Reports headache(s) and Denies poor appetite Eyes Details: bilateral red eyes and double vision in the right ENT Reports dizziness and Reports headache(s) Card Denies chest pain, Denies lightheadedness and Denies dyspnea Resp Denies dyspnea GI Denies nausea and Denies vomiting Reports no additional complaints Musc Reports no additional complaints and Reports abnormal gait Skin/Breast Reports system reviewed and no additional complaints, except as documented Neuro Reports abnormal gait, Reports dizziness and Reports headache(s) Psych Reports no additional complaints Physical exam (Primary Care) Vital Signs: Last Vital Signs Temp 97.1 F 08/04/24 14:44 Pulse 73 08/04/24 14:44 BP 120/70 08/04/24 14:44 Pulse Ox 97 08/04/24 14:44 Oxygen Delivery Method Room Air 08/04/24 14:44 BMI result Body Mass Index 25.6 Tobacco/Smoking Status: Tobacco use Status Tobacco use date assessed 08/04/24 08/04/24 14:54 Patient Tobacco Use Status Former Tobacco user 08/04/24 14:42 Tobacco use type Cigarette 08/04/24 14:42 e-Cigarette/Vaping Use Currently Using 08/04/24 14:42 Thrive Assessment: Date of Thrive Assessment Date Thrive assessed 05/27/24 08/04/24 14:42 Const General: cooperative, healthy appearing, comfortable and no acute distress Orientation/consciousness: patient oriented x3 HENKS Head: Yes normocephalic Ears: hearing grossly normal bilaterally General nose exam: Normal external nose present Eyes General: appearance normal, both eyes and all related structures Conjunctivae: conjunctival abnormal bilateral (erythema) Neck Neck: Yes full ROM and Yes no lymphadenopathy Resp Effort & Inspection: normal respiratory effort Auscultation: clear to auscultation bilaterally, no crackles, no rales, no rhonchi and no wheezes Cardio Rate: regular rate Rhythm: regular rhythm Skin General skin exam: no rashes or lesions noted Neuro General: patient oriented x3 Gait exam (Neuro): Normal gait present Extrem General: Yes normal to inspection, Yes full ROM and No edema Psych Affect: normal affect Attitude: cooperative Insight: Good insight present (Psych) Judgement: Good judgement present (Psych) Results AMB Urinalysis Dipstick UR Leukocytes Negative Last Edit by CHANDRIKA Arevalo on 08/04/24 15:39 UR Nitrite Negative Last Edit by Aubrey Bai A on 08/04/24 15:39 UR Urobilinogen Normal Last Edit by Aubrey Bai A on 08/04/24 15:39 UR Protein Negative Last Edit by Aubrey Bai A on 08/04/24 15:39 UR Ph 6.0 Last Edit by Aubrey Bai A on 08/04/24 15:39 UR Blood Large Last Edit by Aubrey Bai A on 08/04/24 15:39 UR Specific [place] 1.020 Last Edit by Aubrey Bai A on 08/04/24 15:39 UR Ketone Negative Last Edit by Aubrey Bai A on 08/04/24 15:39 UR Bilirubin Negative Last Edit by Aubrey Bai A on 08/04/24 15:39 UR Glucose Negative Last Edit by Aubrey Bai A on 08/04/24 15:39 Results Reviewed Results Reviewed: Laboratory Last Values Urine pH (Clinic) 6.0 08/04/24 15:27 Specific [place] (Clinic) 1.020 08/04/24 15:27 Ur Protein (Clinic) Negative 08/04/24 15:27 Ur Ketones (Clinic) Negative 08/04/24 15:27 Urine Blood (Clinic) Large A* 08/04/24 15:27 Urine Nitrite Negative 08/04/24 15:27 Urine Bilirubin (Clinic) Negative 08/04/24 15:27 Urobilinogen (Clinic) Normal 08/04/24 15:27 Leukocyte Esterase (Clinic) Negative 08/04/24 15:27 Urine Glucose (Clinic) Negative 08/04/24 15:27 Coding Level of Care Code Est Pt Level 4 (93177) Diagnoses Depression F32.A Anxiety F41.9 Prolapse of female pelvic organs N81.9 Benign joint hypermobility syndrome M35.7 Behcet disease with multisystem involvement M35.2 Tear of meniscus of right knee as current injury S83.206A Intractable migraine without status migrainosus, unspecified migraine type G43.919 Intractability: intractable Migraine type: unspecified Status migrainosus presence: without status migrainosus Hair loss L65.9 IgA deficiency D80.2 Dysuria R30.0 Assessment & Plan Assessment & Plan (1) Depression: Comment: [facility] for counseling and for Psychiatry. Code(s): F32.A - Depression, unspecified Category: Medical Plan: Patient is currently following with [facility] for counseling and for Psychiatry. Continue on current medication regimen (2) Anxiety: Comment: [facility] for counseling and for Psychiatry Code(s): F41.9 - Anxiety disorder, unspecified Category: Medical Plan: See above (3) Prolapse of female pelvic organs: Code(s): N81.9 - Female genital prolapse, unspecified Category: Medical Plan: Patient was found to have prolapse of female pelvic organs. She has seen the urologist and the telephone answering service operator and is making an appointment with the uro telephone answering service operator for further evaluation and treatment likely a pessary fitting. (4) Benign joint hypermobility syndrome: Code(s): M35.7 - Hypermobility syndrome Category: Medical Plan: Patient having Kings-Danlos syndrome is currently following with orthopedics for knee braces. (5) Behcet disease with multisystem involvement: Comment: Skin and oral ulcers are controlled on current regimen of Otezla and colchicine. She has a flare every 3-4 months. 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 She had initial relief in controlling her joint pain on Celebrex but I discontinued it due to her history of chronic atrophic gastritis, which can be attributed due to chronic NSAID use. We discussed considering an alternative NSAID that is also GI protective (less GI side effects) such as nabumetone. Patient agrees with plan. She is aware that if she has worsening GI symptoms to discontinue nabumetone. My hope is with using an alternative NSAID that she will have better control of her polyarthralgias. 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 Partial control with colchicine 0.6mg BID for oral ulcers with side effect of diarrhea (when she discontinued it, ulcers increased). Otezla 02/2024-controls oral ulcers and cutaneous disease. Low-dose prednisone causes agitation. No benefit in controlling joint pain with methylprednisolone. Cortisone injections to bilateral knees from pain management PSSP caused increased pain. MTX caused diarrhea. She has MTHFR mutation. 4 days on Leflunomide caused headache, nausea, dizziness, abdominal pain and hair loss. She has history of dry eyes (SSA/SSB negative) treated with prednisolone topical, punctate plugs by Dr. Michel. She did not tolerate hydroxychloroquine due to vomiting started by Ophthalmology for dry eye syndrome. She saw Dr. Luther Villavicencio Opthalmologist 03/14/2024 who did not see any clinical signs of systemic inflammation in her eyes. She has history of Raynaud's syndrome and benign hypermobility syndrome. History of uterine and rectal prolapse. She was referred to Genetics at [facility] but no showed to appointment as patient did not have a ride. Neurological evaluation with imaging and EMGs have not revealed neurological involvement of Behcet's syndrome. She has had bilateral upper and R lower extremity EMG is that revealed bilateral carpal tunnel syndrome (03/2023 [facility] note), EMGs bilateral lower extremities [facility] 11/02/2023 normal, CT brain December 2022 and MRI C to T-spine 08/22/2022, MRI L-spine January 2021 has been negative. MRI brain May 2023 ordered by neurologist at [facility] was negative. Code(s): M35.2 - Behcet's disease Category: Medical Plan: Patient is currently following with Rheumatology in his having a flare in symptoms. She has sores in her mouth as well as bilateral eye redness. She is seeing her eye doctor tomorrow for further evaluation of her double vision and bilateral eye redness. She also reach out to her residential glazier and was given lidocaine and magic mouthwash for mouth sores. (6) Tear of meniscus of right knee as current injury: Code(s): S83.206A - Unspecified tear of unspecified meniscus, current injury, right knee, initial encounter Category: Medical Plan: Continue to follow with orthopedics. Scheduled to undergo meniscus surgery in September. (7) Migraine headache: Comment: Chronic. Exacerbated since being on methotrexate. She has discoordination, gait instability, frequent falls, symptoms of neuropathy in lower extremities with negative EMG for significant finding and prior brain imaging unrevealing. I was unable to locate recent brain MRI in [facility] EMR [facility]. She has benefit on gabapentin in helping to control neuropathy. She denies any side effects from gabapentin. Code(s): G43.909 - Migraine, unspecified, not intractable, without status migrainosus Category: Medical Qualifiers: Intractability: intractable Migraine type: unspecified Status migrainosus presence: without status migrainosus Qualified Code(s): G43.919 - Migraine, unspecified, intractable, without status migrainosus Plan: Patient having history of migraine headaches she is seeing pain management as well as Neurology coming up for this concern. (8) Hair loss: Code(s): L65.9 - Nonscarring hair loss, unspecified Category: Medical Plan: Patient is currently following with her salvationist and was started on minoxidil for hair thinning. Plan to obtain blood work for further evaluation and advised patient to follow up with Dermatology for possible biopsy (9) IgA deficiency: Code(s): D80.2 - Selective deficiency of immunoglobulin A [IgA] Category: Medical Plan: Referral was placed to immunology at patient request. (10) Dysuria: Comment: Recurrent suspected Code(s): R30.0 - Dysuria Category: Medical Plan: Urinalysis in the office today is negative for infection. It does redemonstrate hematuria and she is currently undergoing a workup with Urology including cystoscopy and urine cytology for further evaluation. Plan The patient will provide a urine sample for analysis to investigate the reported urinary abnormalities. A comprehensive thyroid panel will be ordered to assess for potential thyroid dysfunction, given the family history of Graves' disease and the patient's symptoms of fatigue and dizziness. A referral to an adjunct philosophy faculty will be made to address the patient's IgA deficiency. The patient will continue using a foot brace for foot drop and will be monitored for any progression of symptoms. The patient is scheduled for knee surgery at the end of September and will continue physical therapy to manage knee pain and improve mobility. Hair loss will be managed with minoxidil, and further evaluation by a salvationist may be considered if symptoms persist. This note was constructed using voice recognition software. While every effort has been made to ensure accuracy and building admin, still areas may have been included sometimes these areas may affect the content or meeting of the given symptoms. Total time spent caring for the patient today was 30 minutes. This includes time spent before the visit reviewing the chart, time spent during the visit, and time spent after the visit and documentation. Patient was informed and verbally consented to the use of an ambient scribe for clinic note documentation during this visit. Orders: Orders Follicle Stimulating Hormone 08/04/24 L65.9 - Nonscarring hair loss, unspecified IRON PROFILE 08/04/24 L65.9 - Nonscarring hair loss, unspecified AMB Urinalysis Dipstick 08/04/24 Z13.9 - Encounter for screening, unspecified TSH reflex Free T4 08/04/24 L65.9 - Nonscarring hair loss, unspecified, Z00.00 - Encounter for general adult medical examination without abnormal findings Free T4 (Free Thyroxine) 08/04/24 L65.9 - Nonscarring hair loss, unspecified, Z00.00 - Encounter for general adult medical examination without abnormal findings Triiodothyronine T3 Free 08/04/24 L65.9 - Nonscarring hair loss, unspecified Lutenizing Hormone 08/04/24 L65.9 - Nonscarring hair loss, unspecified Cortisol Random 08/04/24 L65.9 - Nonscarring hair loss, unspecified Referrals Allergy & Immunology Referral D80.2 - Selective deficiency of immunoglobulin A [IgA]
[2024-08-04 14:44] VITALS: BP 120/70; PULSE 73; TEMP 36.2; O2SAT 97; BMI 25.6
== END 2024-08-04 15:35 | disposition home or self-care (01) ==
LOC: HO.HMCH 14:33
DX: Z13.9 Encounter for screening, unspecified (principal)

== ENCOUNTER 2024-08-06 13:01 | Outpatient (AMB) | payer OTHER, SELFPAY ==
--- NOTE | 2024-08-06 13:09 | A.OFFVIS_ITS ---
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 Allergies hydroxychloroquine (From Plaquenil) Allergy (Intermediate, Verified 08/06/24 13:13) Vomiting leflunomide Allergy (Intermediate, Verified 08/06/24 13:13) Diarrhea adhesive tape Allergy (Unknown, Verified 08/06/24 13:13) Unknown erythromycin base (ERYTHROMYCIN BASE) Allergy (Unknown, Verified 08/06/24 13:13) UNKNOWN latex (LATEX) Allergy (Unknown, Verified 08/06/24 13:13) UNKNOWN acetaminophen (From Tylenol) Adverse Reaction (Unknown, Verified 08/06/24 13:13) Unknown HPI HPI 3 Months: Details: Loosing clumps of hair. She started noticing it after she took leflunomide but she only took it for a week. She had to discontinue it due to side effects. PCP started minoxidil She has oral ulcers and skin ulcers last week. Healed. She double dose of colchicine to 1.2 mg twice a day for 4 days, which contributed to quicker resolution of flare. Fevers 101 F few times a week with chills, eyes feel hot. She had Blurry vision with redness in eyes. She is scheduled to see project analyst in [place] this Sunday. Blurred vision has improved. She is also experiencing night sweats in his losing weight. Her weight then we will fluctuate with increase weight. She bounces between a weight of 130 to 150 lb. Toes are numb in bilateral feet. Gabapentin is helping. She reduced the dose of try to get off of gabapentin but reports that paraesthesia returns. She is now on gabapentin 900 mg 3 times a day. She sees pain management at [facility] who is prescribing oxycodone 5 mg t.i.d. with benefit. She has improved quality of life. She still requires assistance with ADLs and cooking. She requires a wheelchair to ambulate. Pain management is working on getting a pump for patient. She had a discussion about radiofrequency ablation with her physician but reports that the assistant food service manager did not feel she would benefit from radiofrequency ablation to help control back pain. She tried nabumetone for 1 month but then did not receive prescription. She is back on Celebrex. She felt that there was improve pain relief on nabumetone compared to Celebrex. She continues to wear knee braces and tries to participate in physical therapy. Orthopedic surgeon is planning to repair ligament tears in her left knee in September. Chronic microscopic hematuria for the last 6 months. 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] Personal history of malignant melanoma of skin Muscle spasm of back Chronic pain syndrome Generalized anxiety disorder Major depressive disorder, single episode, in full remission Surgical History H/O right wrist surgery Hx laparoscopic cholecystectomy (10/22/23) Hx of tonsillectomy History of appendectomy Social History Household Members: Spouse and Family Housing: House Are you a primary transitional care liaison to a significant other at home: No Do you presently have visiting nurse or other home services: No Alcohol intake: current Alcohol intake frequency: holidays/special occasions only Patient Tobacco Use Status: Former Tobacco user Tobacco use type: Cigarette e-Cigarette/Vaping Use: Currently Using Second Hand Smoke Exposure: Yes Substance Use Type: Other and Caffiene Advance Directives Date on File: 10/29/23 service: No Current occupational status: disabled Cognitive needs: Yes (Wheelchair, Walker, Cane) Hearing needs: No Vision needs: Yes (Glasses) Physical Exam Vital Signs: Last Vital Signs Pulse 89 08/06/24 13:10 BP 132/72 08/06/24 13:10 Pulse Ox 98 08/06/24 13:10 Oxygen Delivery Method Room Air 08/06/24 13:10 BMI result Body Mass Index 25.8 Const Other: General: Comfortable CVS: RRR Respiratory: clear to auscultation bilaterally. Good respiratory effort Skin: Bruising on bilateral patella MSK: Tender to palpate left PIP with slight synovitis. She also has swelling in her left knee with tenderness on palpation. Normal range of motion of upper extremity. Patient is examined in wheelchair. Range of motion of lower extremities was not examined. She has bilateral knee braces on. Assessment & Plan Assessment & Plan (1) Behcet disease with multisystem involvement: Comment: She had a recent flare of her oral and skin ulcerations now better controlled with temporary increase in colchicine. She also developed synovitis left 3rd PIP (hand x-rays normal). While on nabumetone she had better control of polyarthralgias. I am concerned that inflammatory arthritis from Behcet's disease is playing a role to her joint pain with the new development of synovitis of left 3rd PIP. She has an upcoming appointment for bilateral knee MRIs with and without contrast for further evaluation of inflammatory arthritis contributing to her knee pain. 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 Partial control with colchicine 0.6mg BID for oral ulcers with side effect of diarrhea (when she discontinued it, ulcers increased). Otezla 02/2024-controls oral ulcers and cutaneous disease. Low-dose prednisone causes agitation. No benefit in controlling joint pain with methylprednisolone. Cortisone injections to bilateral knees from pain management PSSP caused increased pain. MTX caused diarrhea. She has MTHFR mutation. 4 days on Leflunomide caused headache, nausea, dizziness, abdominal pain and hair loss. She has history of dry eyes (SSA/SSB negative) treated with prednisolone topical, punctate plugs by Dr. Michel. She did not tolerate hydroxychloroquine due to vomiting started by Ophthalmology for dry eye syndrome. She saw Dr. Luther Villavicencio Opthalmologist 03/14/2024 who did not see any clinical signs of systemic inflammation in her eyes. She has history of Raynaud's syndrome and benign hypermobility syndrome. History of uterine and rectal prolapse. She was referred to Genetics at [facility] but no showed to appointment as patient did not have a ride. Neurological evaluation with imaging and EMGs have not revealed neurological involvement of Behcet's syndrome. She has had bilateral upper and R lower extremity EMG is that revealed bilateral carpal tunnel syndrome (03/2023 [facility] note), EMGs bilateral lower extremities [facility] 11/02/2023 normal, CT brain December 2022 and MRI C to T-spine 08/22/2022, MRI L-spine January 2021 has been negative. MRI brain May 2023 ordered by neurologist at [facility] [place] was negative. Code(s): M35.2 - Behcet's disease Category: Medical Plan: Continue Otezla 30 mg daily Continue colchicine to 0.6 mg b.i.d. She will increase dose of colchicine to 1.2 mg b.i.d. during flares of ocular and skin ulcers then resume back to maintenance dose of 0.6 mg b.i.d. when flare resolves. Restart nabumetone 500 mg b.i.d. with food Discontinue Celebrex Inflammatory markers ordered Labs for drug monitoring up-to-date from 07/2024 reviewed in expanse. MRI bilateral knees are scheduled 08/08/2024 She will contact insurance to set up MANAGER LVN. I also recommended getting in touch with PCP for supporting MANAGER LVN application. She will contact my office if she needs a letter from me. Return to clinic in 3 months Follow up with Ophthalmology in [place] Dr. Tripp 08/08/2024 for recent episode of blurry vision and red eyes Neurology evaluation 08/2024. We discussed increasing gabapentin dose to better control neuropathy symptoms in her feet. She will further discuss with neurologist at her new patient appointment. May need to consider repeating EMG of lower extremities due to progression of neuropathy Continue to follow up with Dr. Ashlyn Abraham at [facility] for pain management who was prescribing oxycodone. Patient is currently participating in physical therapy for lower extremity strengthening at [facility]. Clinic note from June 2024 reviewed. 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: Code(s): Z79.899 - Other pest control worker helper (current) drug therapy Category: Medical Plan: See above Orders: Orders Erythrocyte Sedimentation Rate Today M25.50 - Pain in unspecified joint, M35.2 - Behcet's disease, Z79.899 - Other correction (current) drug therapy C Reactive Protein Today M25.50 - Pain in unspecified joint, M35.2 - Behcet's disease, Z79.899 - Other correction (current) drug therapy Medications: Refilled nabumetone Take with food 500 mg PO BID 60 tabs 2RF 30 days Coding Level of Care Code Est Pt Level 5 (72551) Diagnoses Behcet disease with multisystem involvement M35.2 Polyarthralgia M25.50 Other correction (current) drug therapy Z79.899 Time Spent (min) 40
[2024-08-06 13:10] VITALS: BP 132/72; PULSE 89; O2SAT 98; BMI 25.8
--- OUTSIDE RECORDS SUMMARY | 2024-08-06 15:11 | XMS_ITS | Referral Summary ---
Author Organization [facility] Address [address] [place] [address] Care Team Providers Care Manager Of Financial Reporting Name Role Phone Ana Cortez Primary Care Provider [phone] Encounters Date Type Department Care Team Description 05/28/2024 Refill [facility] [address] [place] [address] [phone] Shelter Supervisor: Pushpa Amin, ALONSO Dean from Last 3 [...] Assessment & Plan: Will be scheduled with [facility] GI. Saw Dr. Reyes who recommended [...] Treatment Not on file Insurance [employer] [place] [id number] [employer] Care Teams Manager Of Financial Reporting Relationship Specialty Start Date End Date Ana Cortez [address] [place] [address] PCP - General 04/10/23
== END 2024-08-06 14:13 | disposition home or self-care (01) ==
PROVIDERS: PCP Internal Medicine; Visit Provider Internal Medicine Rheumatology
DX: M35.2 Behcet's disease (principal); M25.59 Pain in other specified joint; Z79.899 Other long term (current) drug therapy
CPT/HCPCS: 99215

== ENCOUNTER → 2024-08-06 13:01 | Outpatient (BNVA) | payer OTHER, SELFPAY | PROVIDERS: PCP Internal Medicine; Visit Provider Internal Medicine Rheumatology | DX: M35.2 Behcet's disease (principal); M25.50 Pain in unspecified joint; Z79.899 Other long term (current) drug therapy | CPT/HCPCS: 99212 ==

== ENCOUNTER 2024-08-07 12:45 | Outpatient (REF) | payer OTHER, SELFPAY ==
[2024-08-07 14:59] LABS: Erythrocyte Sedimentation Rate 16 MM/HR (0-20)
--- OUTSIDE RECORDS SUMMARY | 2024-08-07 15:10 | XMS_ITS | Referral Summary ---
Author Organization [facility] Address [address] [place] [address] Care Team Providers Care Ad Copy Writer Name Role Phone Ana Cortez Primary Care Provider [phone] Encounters Date Type Department Care Team Description 05/28/2024 Refill [facility] [address] [place] [address] [phone] Personal Lines Sales Rep: Pushpa Amin, ALONSO Dean from Last 3 [...] Assessment & Plan: Will be scheduled with [facility] GI. Saw Dr. Reyes who recommended [...] Treatment Not on file Insurance [employer] [place] [id number] [employer] Care Teams Ad Copy Writer Relationship Specialty Start Date End Date Ana Cortez [address] [place] [address] PCP - General 04/10/23
== END 2024-08-07 12:46 | disposition home or self-care (01) ==
LOC: HO.LAB 12:45
PROVIDERS: Visit Provider Internal Medicine Rheumatology
DX: M25.50 Pain in unspecified joint (principal); M35.2 Behcet's disease; Z79.899 Other long term (current) drug therapy
CPT/HCPCS: 36415; 85652; 86140

== ENCOUNTER 2024-08-14 13:34 | Outpatient (AMB) | payer OTHER, SELFPAY ==
--- NOTE | 2024-08-14 13:42 | MHC.OFFVIS ---
Vital Signs 08/14/24 13:45 Height 5 ft 4 in Weight 150 lb BMI 25.7 BP 94/62 Blood Pressure Location Rt brachial Position Sitting Intake Visit Reasons: INP-Behcet's disease/Migraine Allergies hydroxychloroquine (From Plaquenil) Allergy (Intermediate, Verified 08/14/24 13:43) Vomiting leflunomide Allergy (Intermediate, Verified 08/14/24 13:43) Diarrhea adhesive tape Allergy (Unknown, Verified 08/14/24 13:43) Unknown erythromycin base (ERYTHROMYCIN BASE) Allergy (Unknown, Verified 08/14/24 13:43) UNKNOWN latex (LATEX) Allergy (Unknown, Verified 08/14/24 13:43) UNKNOWN acetaminophen (From Tylenol) Adverse Reaction (Unknown, Verified 08/14/24 13:43) Unknown Medication List - Last Reconciled 08/14/24 by Nury Up MD apremilast (Otezla) 30 mg PO BID atogepant (Qulipta) 30 mg PO DAILY azelastine 1 spray intranasal BID colchicine 0.6 mg PO BID 30 days dextroamphetamine-amphetamine 10 mg ER (Adderall XR) 1 cap PO QAM dextroamphetamine-amphetamine 20 mg 1 tab PO BID diazepam 5 mg PO TID PRN dicyclomine 20 mg (2 x 10 mg) PO BID PRN 90 days duloxetine 60 mg PO DAILY duloxetine 30 mg PO DAILY epinephrine (EpiPen) 0.3 mg (0.3 mL) IM Q10M PRN famotidine 20 mg PO BID gabapentin 900 mg (1.5 x 600 mg) PO TID glucosamine-chondroitin 250-200 mg (Osteo Bi-Flex) 2 tabs PO TID leg brace (Knee Support Brace) wear as directed. Bilateral knee hinged brace with patella stabilization. Dx: Kings-Danlos Syndrome lidocaine 5% 1 appl topical BID PRN lidocaine HCl 2% 1 appl topical BID-TID PRN Magic Mouthwash Diphen/Lido/Antacid 1:1:1 240 mL orally; Lidocaine Viscous 2 % 80mL; diphenhydramine 12.5 mg/5 mL 80mL; aluminum-mag hydrox-simeth [id number]/5mL 80mL Swish, gargle and split 5 mL every 4-6 hours as needed. metoclopramide HCl 5 mg (5 mL) PO TID 5 days minoxidil 1.25 mg PO DAILY mupirocin 2% 1 appl topical BID PRN nabumetone 500 mg PO BID 30 days neomycin-polymyxin B-dexameth 3.5mg/mL-10,000 unit/mL-0.1 % 1 drp ophthalmic (eye) Q12H ondansetron 4 mg PO BID PRN oxycodone 10 mg PO Q8H prednisolone acetate 1% drps ophthalmic (eye) prucalopride (Motegrity) 1 mg PO DAILY 90 days Shower Chair As directed tizanidine 2 mg PO Q8H PRN [transfer bench As directed] turmeric 400 mg PO DAILY ubrogepant (Ubrelvy) 50 mg PO ONCE PRN walker (Ultra-Light Rollator misc) As directed [wheelchair As directed] HPI Comments Details: 34y/o female comes for evaluation of Migraines. she started having significant headaches for over 10 years. The headaches are typically in bioccipital and bitemporal region usually preceded by visual aura ( flashing lights ). The headaches are pounding pressure, photophobia, phonophobia , nausea, blurry vision , vomiting, eye pain. . the migraines are 1-2 /week and last 1-2 days she also has regular headaches- milder throbbing headaches everyday. she treats with ibuprofen . she used to be fioricet , ubrelvy- both helped and insurance did not cover. she takes gabapentin for paresthesias . Sumatriptan , rizatriptan and almotriptan - she could not tolerate Propranolol did not help- she also has low blood pressure and heart rate she was seen at [facility] for migraines in the past. she has episodes , feels like her face is droopy and unilateral ptosis with migraines she was diagnosed with Behcets 2 years ago by Manager Membership. 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 and uses wheelchair or walker to prevent falls she sees [facility] for chronic back pain she has right Carpal tunnel and had 2 surgeries. 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] Personal history of malignant melanoma of skin Muscle spasm of back Chronic pain syndrome Generalized anxiety disorder Major depressive disorder, single episode, in full remission Surgical History H/O right wrist surgery Hx laparoscopic cholecystectomy (10/22/23) Hx of tonsillectomy History of appendectomy Social History Household Members: Spouse and Family Housing: House Are you a primary healthcare account manager to a significant other at home: No Do you presently have visiting nurse or other home services: No Alcohol intake: current Alcohol intake frequency: holidays/special occasions only Patient Tobacco Use Status: Former Tobacco user Tobacco use type: Cigarette e-Cigarette/Vaping Use: Currently Using Second Hand Smoke Exposure: Yes Substance Use Type: Other and Caffiene Advance Directives Date on File: 10/29/23 service: No Current occupational status: disabled Cognitive needs: Yes (Wheelchair, Walker, Cane) Hearing needs: No Vision needs: Yes (Glasses) Physical Exam Vital Signs: Last Vital Signs BP 94/62 08/14/24 13:45 BMI result Body Mass Index 25.7 Const General: cooperative and comfortable Nutritional Appearance: average body habitus Orientation/consciousness: patient oriented x3 Eyes Pupils: Equal, round and reactive pupils present Neuro Other: Limited exam due to pain Mild yair eyelid drooping diffiuclty with upgaze General: patient oriented x3, tone normal, moves all extremities, no focal motor deficits and Unable to assess gait Cranial nerves: Yes Equal, round and reactive pupils present, Yes Nystagmus not present and Yes Normal facial strength present Cognition (Neuro): normal cognition Gait exam (Neuro): Unable to assess gait Motor exam (neuro): 5/5 motor strength present throughout and Normal motor muscle tone present throughout Deep tendon reflexes (DTR's): Right triceps reflex intensity grade: 2+, Left triceps reflex intensity grade: 2+, Rt Biceps (C5, C6): 2+, Left biceps reflex intensity grade: 2+, Right brachioradialis reflex intensity grade: 2+, Left brachioradialis reflex intensity grade: 2+, Right patellar reflex intensity grade: 2+ and Left patellar reflex intensity grade: 2+ Coordination: [id number] test normal Results Reviewed Results Reviewed: Feb 2024 This is an abnormal study. 2. There is electrodiagnostic evidence for right moderate-severe median neuropathy at the wrist, consistent with carpal tunnel syndrome. 3. There is no electrodiagnostic evidence for ulnar neuropathy, brachial plexopathy, or cervical radiculopathy. Assessment & Plan Assessment & Plan (1) Chronic migraine with aura: Comment: with epsidoes of ptosis and right face weakness complex medical history- Behcets , Ehler Danlos Code(s): G43.E09 - Chronic migraine with aura, not intractable, without status migrainosus Category: Medical Qualifiers: Status migrainosus presence: without status migrainosus Intractability: intractable Qualified Code(s): G43.E19 - Chronic migraine with aura, intractable, without status migrainosus (2) Behcet disease with multisystem involvement: Comment: ? neuropathy Code(s): M35.2 - Behcet's disease Category: Medical Plan I will evaluate her with MRI brain to r/o structural causes Labs- ACHR antibodies for ? myasthenia Medications tried - Abortive- ibuprofen tylenol fiorciet ubrelvy sumatriptan Rizatriptan Prophylactic medications- propranolol gabapentin cymbalta I will trial her on quipta 30mg qd for migraine prophylaxis and ubrelcy 50mg prn for migraines Schedule for emg LE to evaluate neuropathy Orders: Orders MR head/brain wo con Today G43.E19 - Chronic migraine with aura, intractable, without status migrainosus, M35.2 - Behcet's disease NE nerve conduction velocity Today G62.9 - Polyneuropathy, unspecified NE electromyogram (EMG) Today G62.9 - Polyneuropathy, unspecified Acetylcholine Physical Therapy Assistant Modulating Today H02.409 - Unspecified ptosis of unspecified eyelid Acetylcholine Recept. Blocking Today H02.409 - Unspecified ptosis of unspecified eyelid Acetylcholine Receptor Binding Today H02.409 - Unspecified ptosis of unspecified eyelid Medications: New ubrogepant (Ubrelvy) 1 tab at onset and repeat in 2 hrs for headaches max 4 tabs per day 50 mg PO ONCE PRN 14 tabs 6RF migraine headache atogepant (Qulipta) 30 mg PO DAILY 30 tabs 6RF Coding Level of Care Code New Pt Level 4 (14088) Complex EM visit Add On G2211 Diagnoses Intractable chronic migraine with aura and without status migrainosus G43.E19 Status migrainosus presence: without status migrainosus Intractability: intractable Behcet disease with multisystem involvement M35.2
--- OUTSIDE RECORDS SUMMARY | 2024-08-14 13:42 | XMS_ITS | Clinical Summary ---
Author Organization [facility] Address [address] [place] [address] Care Team Providers Care Hip Hop Dance Instructor Name Role Phone Ana Cortez NP Primary Care Provider [phone] Allergies Active Allergy Reactions Criticality Noted Date [...] 79 09/21/2022 10:00 PM EDT Temperature 36.7 C (98.1 F) 09/21/2022 10:00 PM EDT Respiratory Rate 18 09/21/2022 10:00 PM EDT [...] Screening (P ap Smear) 2010 Influenza Vaccine (Season Ended) 2024 DTap / Tdap / Td (2 - Td or Tdap) 10/12/2025 016 Pneumococcal Vaccine Aged Out No long er eligible based on patient's age to complete this topic RSV Ped < 20 months Aged Out No longe r eligible based on patient's age to complete this topic Care Teams Hip Hop Dance Instructor Relationship Specialty Start Date End Date Ana Cortez NP [address] [id number] PCP - General Family Medicine 09/21/22
--- OUTSIDE RECORDS SUMMARY | 2024-08-14 13:42 | XMS_ITS | Referral Summary ---
Author Organization [facility] Address [address] [place] [address] Care Team Providers Care Integration Analyst Name Role Phone Ana Cortez Primary Care Provider [phone] Encounters Date Type Department Care Team Description 05/28/2024 Refill [facility] [address] [place] [address] [phone] Floorleader: Pushpa Amin, ALONSO Dean from Last 3 [...] & Plan: Will be scheduled with [facility]. Saw Dr. Reyes who recommended work [...] Treatment Not on file Insurance [employer] [place] [id number] [employer] Care Teams Integration Analyst Relationship Specialty Start Date End Date Ana Cortez [address] [place] [address] PCP - General 04/10/23
--- OUTSIDE RECORDS SUMMARY | 2024-08-14 13:42 | XMS_ITS ---
Author Name [facility] Organization Unknown Encounters Encounter Type Encounter Reason Primary Diagnosis Location Date Emergency Myalgia, unspecified site Myalgia, unspecified site [facility] 09/21/2022 Care Team Organization Name Specialty Phone Email Start Date End Juanito wilson [facility] 03/04/2023 [facility] 2022 [facility] 09/2109/21/2022
[2024-08-14 13:45] VITALS: BP 94/62; BMI 25.7
== END 2024-08-14 14:29 | disposition home or self-care (01) ==
LOC: HO.HSMS 13:34
PROVIDERS: Visit Provider Psychiatry & Neurology Neurology
DX: G43.E19 Chronic migraine with aura, intractable, without status migrainosus (principal); M35.2 Behcet's disease
CPT/HCPCS: 99204; G2211

== ENCOUNTER → 2024-08-14 13:34 | Outpatient (BNVA) | payer OTHER, SELFPAY | PROVIDERS: Visit Provider Psychiatry & Neurology Neurology | DX: G43.E19 Chronic migraine with aura, intractable, without status migrainosus (principal); M35.2 Behcet's disease | CPT/HCPCS: 99202 ==

== ENCOUNTER 2024-08-20 13:39 | Outpatient (REF) | payer OTHER, SELFPAY ==
--- NOTE | ~2024-08-20 | MR_ITS ---
EXAMINATION: MRI LEFT KNEE WITHOUT CONTRAST HISTORY: M17.0 - Bilateral primary osteoarthritis of knee; Behcet's disease COMPARISON: Correlation is made with plain films of the left knee dated 03/07/2024. TECHNIQUE: Coronal T1 and fat-suppressed proton density, sagittal proton density and fat-suppressed proton density, and axial fat suppressed T2 weighted MR images of the left knee were obtained. Subsequently, sagittal, axial, and coronal fat-suppressed T1-weighted images were obtained after the intravenous administration of 6.5 mm Gadavist. FINDINGS: Bone marrow: There is a small focus of marrow edema involving the posterior aspect of the medial femoral condyle insertion of the gastrocnemius tendon. Joint effusion: There is no joint effusion. Jhaveri's cyst: There is no Jhaveri's cyst. Articular cartilage: There is a tiny cartilage fissure involving the medial patellar facet. The cartilage is otherwise intact. Muscles/soft tissues: The visualized muscles demonstrate normal signal intensity. There is edema of Hoffa's fat pad and the subcutaneous fat anterior to the patellar tendon. Anterior cruciate ligament: Intact Posterior cruciate ligament: Intact Medial collateral ligament: Intact Lateral collateral ligament: Intact Medial meniscus: There is a small focus of increased signal intensity in the posterior horn of the medial meniscus. This does not contact the joint surface. No tear is seen. Lateral meniscus: Intact Flexor mechanism: There is increased T2 signal intensity at the origin of the gastrocnemius tendon with surrounding soft tissue edema consistent with a tear. The popliteus and hamstring tendons are intact. Quadriceps tendon: Intact Patellar tendon: Intact Patellar retinacula: Intact Contrast enhancement: There is contrast enhancement of edema anterior to the patella and in Hoffa's fat pad. There is also enhancement of the bone marrow edema involving the posterior aspect of the medial femoral condyle. MR/MR knee LT wo/w con IMPRESSION: 1. Tear of the origin of the gastrocnemius tendon with surrounding soft tissue edema and adjacent bone marrow edema. 2. Tiny cartilage fissure involving the medial patellar facet. 3. Edema of Hoffa's fat pad and of the subcutaneous fat anterior to the patellar tendon. Electronically signed by: Mikael Méndez MD 08/21/2024 08:30 AM EDT
--- OUTSIDE RECORDS SUMMARY | 2024-08-20 14:29 | XMS_ITS | Clinical Summary ---
Author Organization [address] Address [address] [place] [address] [place] [address] Phone Care Team Providers Care Customer Management Specialist Name Role Phone Genesis Davis MD Primary Care Provider [phone] Allergies Active Allergy Reactions Criticality Noted Date [...] obesity with BMI of 4 0.0-44.9, adult ([facility] V24, [facility] V28) 11/23/2023 Allergic conjunctivitis of both eyes 06/19/2019 Perennial allergic rhinitis 06/19/2019 Arthralgia 04/09/2019 Lower abdominal pain 04/09/2019 IgA deficiency ([facility] V24, [facility]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 Melanoma in situ ([facility] V24, [facility] V28) 03/2018 Nevus 08/12/2018 Insulin controlled gestation [...] APPENDECTOMY PROCEDURE: HISTORICAL APPENDECTOMY ESOPHAGOGASTRODUODENOSCOPY 03/29/15 PROCEDURE: [place] EGD TRANSORAL BIOPSY SINGLE/MULTIPLE; COMMENT: mild distal [...] 5 Years) and At-Risk Patients (6 to 49 Years) (1 of 2 - PCV) 01/07/2008 Cervical Cancer Screening: P ap Smear 06/13/2020 06/13/2017, 06/13/2017, 06/13/2017 Depression Screening 01/14/2022 Hepatitis C Screening 01/14/2022 Social Influencers of Health Screening 01/14/2022 Cholesterol Screening (Lipid Panel) 04/19/2023 04/18/2018 Influenza Vaccine (#1) 2024 DTaP,Tdap,and Td Vaccines (2 - Td [...] Results * (ABNORMAL) Lipid panel (04/18/2018) Pathologist [facility] LDL/HDL Ratio 4 0 - 4 Triglycerides 97 0 - 150 mg/dL Cholesterol 179 0 - 200 mg/dL HDL 42 >=40 mg/dL LDL Cholesterol 118(A) 0 - 100 mg/dL Blood Venous blood specimen / Unknown Historical Provider LAB BLOOD ORDERABLES Candis l Result * HIV Screening (06/14/2017) Pathologist [facility] HIV Screening abstracted Historical Provider HEALTH MAINTENANCE Final Result * Pap smear (06/13/2017) 06/13/2017 Narrative HISTORICAL TESTING LAB RESULTING AGENCY - 06/20/2017 4:55 PM EDT [id number] THINPREP PAP, IMAGED AND CELL BLOCK: NEGATIVE FOR SQUAMOUS INTRAEPITHELIAL LESION AND MALIGNANCY . PARTIALLY OBSCURING LUBRICANT IS PRESENT. BORDERLINE/LIMITED SQUAMOUS CELLULARITY. LYNDA SNYDER, ELIZABETH(ASCP) (CASE SCREENED 06 18 2017) BROOKLYN MANSFIELD M.D., PATHOLOGIST (CASE ELECTRONICALLY SIGNED 06 19 2017) ADEQUACY: SATISFACTORY. ENDOCERVICAL/TRANSFORMATION ZONE COMPONENT PRESENT. SOURCE: THINPREP PAP HPV IF ASCUS, CERVICAL, IMAGED: CLINICAL INFORMATION: HPV IF DIAGNOSIS OF ASCUS. Z12.4, Z34.81, PAP HX: NEGATIVE 06/09/2017, [place] [facility] LAB CYTOLOGY ORDERA BLES Final Result HISTORICAL TESTING LAB RESULTING AGENCY from Last 3 Months or Most Recently Relevant to Health Maintenance Insurance [facility] HEALTH PLAN MEDICAID - [place] Care Teams Customer Management Specialist Relationship Specialty Start Date End Date Genesis Davis MD [address] [place] [id number] PCP - General 08/31/23
--- OUTSIDE RECORDS SUMMARY | 2024-08-20 14:29 | XMS_ITS | Referral Summary ---
Author Organization [facility] Address [address] [place] [address] Care Team Providers Care Harvest Field Ticketer Name Role Phone Ana Cortez Primary Care Provider [phone] Encounters Date Type Department Care Team Description 05/28/2024 Refill [facility] [address] [place] [address] [id number] Desulfurizer Operator: Pushpa Amin, ALONSO Dean from Last [...] Assessment & Plan: Will be scheduled with [facility] GI. Saw Dr. Reyes who recommended [...] Treatment Not on file Insurance [employer] [place] [id number] [employer] Care Teams Harvest Field Ticketer Relationship Specialty Start Date End Date Ana Cortez [address] [place] [address] PCP - General 04/10/23
[2024-08-24 07:59] LABS: Acetylcholine Recept. Blocking <15 (<15)
== END 2024-08-20 13:40 | disposition home or self-care (01) ==
LOC: HO.MRI 13:39
PROVIDERS: Absent Provider Psychiatry & Neurology Neurology; Visit Provider Internal Medicine Rheumatology
DX: H02.409 Unspecified ptosis of unspecified eyelid (principal); M17.0 Bilateral primary osteoarthritis of knee; M35.2 Behcet's disease; M35.7 Hypermobility syndrome
CPT/HCPCS: 36415; 73723; 86041; 86042; 86043; A9585

== ENCOUNTER → 2024-08-20 13:46 | Outpatient (BNV) | payer OTHER, SELFPAY | PROVIDERS: Absent Provider Psychiatry & Neurology Neurology; Visit Provider Radiology Diagnostic Radiology | DX: S86.111A Strain of other muscle(s) and tendon(s) of posterior muscle group at lower leg level, right leg, initial encounter (principal) | CPT/HCPCS: 73723 ==

== ENCOUNTER → 2024-08-25 10:02 | Outpatient (REF) | payer OTHER, SELFPAY ==
--- NOTE | 2024-08-25 10:07 | HM_ITS ---
Conclusion: 1. Patient was monitored for total period of 3 days and 17 hours 2. Baseline was normal sinus rhythm with average heart of 65 beats per minute 3. No significant pauses or arrhythmias noted 4. Patient marked the counter 4 times without reported symptoms correlating with sinus rhythm MTDD
== END ==
LOC: HO.CARD 10:02
PROVIDERS: Visit Provider Internal Medicine Cardiovascular Disease
DX: R00.0 Tachycardia, unspecified (principal)
CPT/HCPCS: 93242

== ENCOUNTER → 2024-08-25 10:07 | Outpatient (BNV) | payer OTHER, SELFPAY | PROVIDERS: Visit Provider Internal Medicine Cardiovascular Disease | DX: R00.0 Tachycardia, unspecified (principal) | CPT/HCPCS: 93244 ==

== ENCOUNTER 2024-08-26 | Outpatient (REF) | payer OTHER, SELFPAY ==
--- OUTSIDE RECORDS SUMMARY | 2024-09-04 08:50 | XMS_ITS | Referral Summary ---
Author Organization [facility] Address [address] [place] [address] Care Team Providers Care Maintenance And Custodian Supervisor Name Role Phone Ana Cortez Primary Care Provider [phone] Allergies Active Allergy Reactions Criticality Noted Date [...] Assessment & Plan: Will be scheduled with [facility] GI. Saw Dr. Reyes who recommended [...] Plan of Treatment Not on file Insurance [employer] MEDICA[employer] Care Teams Maintenance And Custodian Supervisor Relationship Specialty Start Date End Date Ana Cortez [address] [place] [address] PCP - General 04/10/23
--- OUTSIDE RECORDS SUMMARY | 2024-09-04 08:51 | XMS_ITS | Clinical Summary ---
Author Organization [facility] Address [address] [place] [address] Care Team Providers Care Electrostatic Painter Name Role Phone Ana Cortez NP Primary Care Provider [phone] Allergies Active Allergy Reactions Criticality Noted Date [...] age to complete this topic Care Teams Electrostatic Painter Relationship Specialty Start Date End Date Ana Cortez NP [address] [address] PCP - General Family Medicine 09/21/22
--- OUTSIDE RECORDS SUMMARY | 2024-09-04 08:51 | XMS_ITS | Encounter Summary ---
Author Organization [facility] Address [facility] [employer] [address] [place] [id number] Phone Care Team Providers Care Regional Office Coordinator Name Role Phone Pcp, Unknown Primary Care Provider Unavailabl e Encounter Details Date Type Department Care Team (Late st Contact Info) Description 04/12/2023 Procedure Pass [facility], Ct Scan - [address] [address] Social History Tobacco Use Types Packs/Day Years Used Date Smoking Tobacco: Former Cigarettes 1 2014 Smokeless Tobacco: Never Alcohol Use Standard Drinks/Week Comments Not Currently 0 (1 standard drink = 0.6 oz pur e alcohol) very occasional Education Answer Date Recorded Are you interested in more education? Not on homar e 06/09/2022 Are you concerned about learning? Not on file 06/09/2022 No 06/09/2022 No 06/09/2022 Digital Access Answer Date Recorded No 07/10/2022 No 07/10/2022 Reliable internet access at home? Not on file 07/10/2022 Device with a working camera? Not on file Intimate Partner Violence Answer Date R ecorded Are you denied basic needs s uch as food, clothing, or medical care? No 04/12/2023 In the past 12 months have y ou been in a relationship with a person who hurts, threatens, or tries to control you? No 04/12/2023 Are you denied basic needs s uch as food, clothing, or medical care? No 04/12/2023 In the past 12 months have y ou been in a relationship with a person who hurts, threatens, or tries to control you? No 04/12/2023 Comments No Sex and Gender Information Value Date Recorded Sex Assigned at Female 03/09/2019 6:53 PM EST Legal Sex Female 9:05 PM EDT Gender Identity Female 03/09/2019 6:53 PM EST Sexual Orientation Straight 03/09/2019 6: 53 PM EST documented as of this encounter Functional Status * Calculated C-SSRS Risk Score (Lifetime/Recent) Answer Date of Assessment Author No Risk Indicated 04/12/2023 9:23 PM Lucille Shah RN * [place] Suicide Severity Rating Scale (Screener/Recent Self-Report) Question Answer Date of Assessment Author 1. Wish to be (Past 1 Month) No 024 9:23 PM Lucille Leung, DELORIS 2. Non-Specific Active Suici antonette Thoughts (Past 1 Month) No 04/12/2023 9:23 PM Jaime Leung, DELORIS 6. Suicidal Behavior (Lifetime) No 4 9:23 PM Lucille Leung, DELORIS documented as of this encounter Plan of Treatment Not on file documented as of this encounter Visit Diagnoses Not on filedocumented in this encounter Additional Health Concerns Assessment Noted Time PHQ-2 Depression Total Score: 1 04/17/19 20 1:38 PM EST documented as of this encounter Care Teams Regional Office Coordinator Relationship Specialty Start Date End Date Pcp, Unknown PCP - General 04/12/23 documented as of this encounter Additional Source Comments The information contained in this document represents components of the legal health record. It is not the complete legal health record.[facility]
--- OUTSIDE RECORDS SUMMARY | 2024-09-04 08:51 | XMS_ITS | Clinical Summary ---
Author Organization [address] Address [address] [place] [address] [place] [address] Phone Care Team Providers Care Heat Treating Bluer Name Role Phone Jo Ann Hebert Primary Care Provider [phone] Allergies Active Allergy Reactions Criticality Noted Date Comments Adhesive Tape-Silicones Rash 05/04/2011 localized Erythromycin Rash 01/18/2006 Iodinated Contrast Media 09/20/2018 Latex Rash 07/04/2016 Localized;Pt reports latex sensitivity, gets rash with use Other 11/12/2018 Other (No Interaction Warnings)-Blood product alert: patient with IgA deficiency Medications LORazepam (ATIVAN) 1 mg tablet Take 1 tablet (1 mg total) by mouth. 0 Active DULoxetine (Drizalma Sprinkle) 30 mg capsule, [...] Active METHYLPREDNISOL ONE ORAL Take by mouth. Activ e tiZANidine (ZANAFLEX) 2 mg capsule Take 1 capsule (2 mg total) by mouth 3 (three) times a day. Active diazePAM (VALIUM) 2 mg tablet Take 1 tablet (2 mg total) by mouth every 8 (eight) hours if needed for anxiety. Max Daily Amount: 6 mg Active tacrolimus (ENVARSUS XR) 0.75 mg extended release tablet Take 0.14 mg/kg by mouth 1 (one) time each day. Active desoximetasone (TOPICORT) 0.05 % cream Apply topically 2 (two) times a day. Active Active Problems Problem Noted Date Diagnosed Date Abdominal pannus 08/27/2024 Morbid obesity with BMI of 4 0.0-44.9, adult ([facility] V24, [facility] V28) 11/23/2023 Allergic conjunctivitis of both eyes 06/19/2019 Perennial allergic rhinitis 06/19/2019 Arthralgia 04/09/2019 Lower abdominal pain 04/09/2019 IgA deficiency ([facility] V24, [facility]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 Melanoma in situ ([facility] V24, [facility] V28) 0703/2018 Nevus 08/12/2018 Insulin controlled gestation al diabetes mellitus (GDM) during , antepartum 04/17/2018 Uterine size-date discrepancy in third trimester 11/08/2017 Rubella non-immune status, antepartum 07/13/2016 Overview (11/23/2023): Needs pp vaccine Non-ulcer dyspepsia 04/02/2015 Overview (11/23/2023): EGD 03/30/15 - mild esophageal erythema, gastritis with neg. Biopsies Abdominal ultrasound 03/31/17 wnl Asthma 09/24/2013 Encounters Date Type Department Care Team Description 08/29/2024 Telephone General Surgery - [place] [address] [place] [address] Arturo Albarran DO procedure letter (08/29/2024 mailed letter) 08/27/2024 11:00 AM EDT Consult Plastic & Reconstructive Surgery - [place] [address] [place] [address] [place] Abdominal pannus (Primary Dx); Intertrigo; Abrasion of labia minora, sequela; IgA deficiency (CMS/HCC V24, CMS/HCC V28) from Last 3 Months Immunizations Name Administration [...] Mass Index 22.98 08/27/2024 11:14 AM EDT Plan of Treatment Upcoming Encounters Date Type Department Care Team (Late st Contact Info) Description 09/18/2024 1:00 PM EDT Procedure visit Plastic & Reconstructive Surgery [facility] [address] [address] Arturo Albarran DO [address] [address] 09/24/2024 1:00 PM EDT Office Visit Plastic & Reconstructive Surgery [facility] [address] [address] [place] [address] [address] Scheduled Procedures Name Priority Associated Diagnoses Date/Ti me PANNICULECTOMY Abdominal pannus Health Maintenance Due Date Last Done Comments COVID-19 Vaccine (#1) 1994 Hepatitis B Vaccines (1 of 3 - 19+ 3-dose series) 01/07/2008 Pneumococcal Vaccine: Pediatrics (0 to 5 Years) and At-Risk Patients (6 to 49 Years) (1 of 2 - PCV) 01/07/2008 Cervical Cancer Screening: P ap Smear 06/13/2020 06/13/2017, 06/13/2017, 06/13/2017 Hepatitis C Screening 01/14/2022 Social Influencers of Health Screening 01/14/2022 Cholesterol Screening (Lipid Panel) 04/19/2023 04/18/2018 Depression Screening 02/13/2024 Influenza Vaccine (#1) 2024 DTaP,Tdap,and Td Vaccines [...] blood specimen / Unknown us Historical Provider LAB BLOOD ORDERABLES Candis l Result * HIV Screening (06/14/2017) Pathologist [facility] HIV Screening abstracted Historical Provider HEALTH MAINTENANCE Final Result * Pap smear (06/13/2017) 06/13/2017 Narrative HISTORICAL TESTING LAB RESULTING AGENCY - 06/20/2017 4:55 PM EDT [id number] THINPREP PAP, IMAGED AND CELL BLOCK: NEGATIVE [...] to Health Maintenance Insurance [facility] MEDICAID - [place] Care Teams Heat Treating Bluer Relationship Specialty Start Date End Date Jo Ann Hebert PA [address] [place] [address], [address] [place] [address] PCP - General 08/25/24
== END 2024-08-26 00:01 | disposition home or self-care (01) ==
LOC: CF
PROVIDERS: Visit Provider Advanced Practice Midwife
DX: G43.E19 Chronic migraine with aura, intractable, without status migrainosus (principal); M35.2 Behcet's disease
CPT/HCPCS: 81002; 99202

== ENCOUNTER 2024-08-26 14:13 | Outpatient (AMB) | payer OTHER, SELFPAY ==
--- NOTE | 2024-08-26 14:14 | MHC.OFFVIS ---
Vital Signs 08/26/24 14:39 Height 5 ft 4 in Weight 150 lb BMI 25.7 BP 114/72 Intake Visit Reasons: genital prolapse Intake Note: Last pap smear 2018, one abnormal pap smear after 1st son. Electric Stove Mechanic: Electric Stove Mechanic Present (Mary) Accompanied by: Self / Same As Patient Allergies hydroxychloroquine (From Plaquenil) Allergy (Intermediate, Verified 08/26/24 14:38) Vomiting leflunomide Allergy (Intermediate, Verified 08/26/24 14:38) Diarrhea adhesive tape Allergy (Unknown, Verified 08/26/24 14:38) Unknown erythromycin base (ERYTHROMYCIN BASE) Allergy (Unknown, Verified 08/26/24 14:38) UNKNOWN latex (LATEX) Allergy (Unknown, Verified 08/26/24 14:38) UNKNOWN acetaminophen (From Tylenol) Adverse Reaction (Unknown, Verified 08/26/24 14:38) Unknown Is last menstrual period known: Yes Last menstrual period: 08/05/24 Post menopausal: No Patient : No HPI Comments Details: Marie is here today for new patient consult. History of uterine prolapse, Erlers- Danlos syndrome, Bechets disease. She reports she has to push in her cervix in order to urinate. History of cervical and chronic pelvic pain. Frequent painful labial fissures due to Bechet's. Last Pap [address] [place] [address]. Abnormal pap years ago. Regular cycles. History of hematuria follow up by Urology. Is seeking to have a hysterectomy for her symptoms. 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] Personal history of malignant melanoma of skin Muscle spasm of back Chronic pain syndrome Generalized anxiety disorder Major depressive disorder, single episode, in full remission Surgical History H/O right wrist surgery Hx laparoscopic cholecystectomy (10/22/23) Hx of tonsillectomy History of appendectomy Social History Household Members: Spouse and Family Housing: House Are you a primary care connector to a significant other at home: No Do you presently have visiting nurse or other home services: No Alcohol intake: current Alcohol intake frequency: holidays/special occasions only Patient Tobacco Use Status: Former Tobacco user Tobacco use type: Cigarette e-Cigarette/Vaping Use: Currently Using Second Hand Smoke Exposure: Yes Substance Use Type: Other and Caffiene Advance Directives Date on File: 10/29/23 service: No Current occupational status: disabled Cognitive needs: Yes (Wheelchair, Walker, Cane) Hearing needs: No Vision needs: Yes (Glasses) Female Reproductive History Menstrual Age of Menarche: 10 Duration of menses: <3 days Date of last menstrual period: 08/05/24 control method: none Total pregnancies: 8 Full term: 4 Review of Systems Const All systems reviewed & are unremarkable except as noted in HPI and below Physical Exam Vital Signs: Last Vital Signs BP 114/72 08/26/24 14:39 BMI result Body Mass Index 25.7 Const General: cooperative, healthy appearing and no acute distress Orientation/consciousness: patient oriented x3 GI Inspection: Yes normal to inspection Palpation (GI): Soft to palpation and Other GI palpation findings present (Nontender) Rectal Exam - Female: visual inspection normal Other: vulva-shaven, no lesions or fissues. General: Yes bladder normal to palpation External Female Exam: normal appearance of the urethra Speculum Exam - Vagina: normal appearance of the vagina, normal palpation and normal vaginal discharge Speculum Exam - Cervix: normal appearance of the cervix and normal palpation Bimanual exam- vagina & uterus: normal bimanual exam, normal palpation, uterine size normal, bladder normal to palpation, normal palpation, uterine shape normal and non-tender Bimanual Exam- Adnexa, other: normal adnexae, rectocele and cystocele Neuro General: patient oriented x3 Results AMB Urinalysis Dipstick UR Leukocytes Trace Last Edit by Kaykay Polk CMA on 08/26/24 15:25 UR Nitrite Negative Last Edit by Kaykay Polk CMA on 08/26/24 15:25 UR Urobilinogen Normal Last Edit by Kaykay Polk CMA on 08/26/24 15:25 UR Protein Negative Last Edit by Kaykay Polk CMA on 08/26/24 15:25 UR Ph 7.5 Last Edit by Kaykay Polk CMA on 08/26/24 15:25 UR Blood Large Last Edit by Kaykay Polk CMA on 08/26/24 15:25 UR Specific Bowers 1.010 Last Edit by Kaykay Polk CMA on 08/26/24 15:25 UR Ketone Negative Last Edit by Kaykay Polk CMA on 08/26/24 15:25 UR Bilirubin Negative Last Edit by Kaykay Polk CMA on 08/26/24 15:25 UR Glucose Negative Last Edit by Kaykay Polk CMA on 08/26/24 15:25 Assessment & Plan Assessment & Plan (1) Prolapse of female pelvic organs: Code(s): N81.9 - Female genital prolapse, unspecified Category: Medical Qualifiers: Prolapse type: unspecified female genital prolapse Qualified Code(s): N81.9 - Female genital prolapse, unspecified Plan Pap obtained, GC chlamydia and BV panel collected. Await results for final plan of care. Referral placed to Urogynecology for further evaluation in and treatment plan. Advised to schedule annual. Follow up with Urology for hematuria. UA/culture sent, await results for final plan of care. The patient expressed understanding and agreement with the plan of care. All of her questions and concerns were addressed to the best of my ability. This note is constructed using voice recognition software. While every effort has been made to ensure accuracy, residential assistant errors may have been included. Orders: Orders Urine Culture Today R30.0 - Dysuria HPV High risk Today Z01.419 - Encounter for gynecological examination (general) (routine) without abnormal findings CT NG by PCR Vag/Cerv Today Z01.419 - Encounter for gynecological examination (general) (routine) without abnormal findings AMB Urinalysis Dipstick Today R30.0 - Dysuria Pap Smear Today Z01.419 - Encounter for gynecological examination (general) (routine) without abnormal findings Bacterial Vaginosis Panel Today Z01.419 - Encounter for gynecological examination (general) (routine) without abnormal findings Referrals Urogynecology Referral N81.9 - Female genital prolapse, unspecified Coding Level of Care Code New Pt Level 3 (68354) Diagnoses Female genital prolapse, unspecified type N81.9 Prolapse type: unspecified female genital prolapse
[2024-08-26 14:39] VITALS: BP 114/72; BMI 25.7
--- OUTSIDE RECORDS SUMMARY | 2024-08-26 15:29 | XMS_ITS | Clinical Summary ---
Author Organization [address] Address [address] [place] [address] [place] [address] Phone Care Team Providers Care Charge Loader Name Role Phone Jo Ann Hebert Primary Care Provider [phone] Allergies Active Allergy Reactions Criticality Noted Date [...] obesity with BMI of 4 0.0-44.9, adult ([facility] V24, [facility] V28) 11/23/2023 Allergic conjunctivitis of both eyes 06/19/2019 Perennial allergic rhinitis 06/19/2019 Arthralgia 04/09/2019 Lower abdominal pain 04/09/2019 IgA deficiency ([facility] V24, [facility]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 Melanoma in situ ([facility] V24, [facility] V28) 03/2018 Nevus 08/12/2018 Insulin controlled gestation [...] APPENDECTOMY PROCEDURE: HISTORICAL APPENDECTOMY ESOPHAGOGASTRODUODENOSCOPY 03/29/15 PROCEDURE: [place] EGD TRANSORAL BIOPSY SINGLE/MULTIPLE; COMMENT: mild distal [...] Care Team (Late st Contact Info) Description 08/27/2024 11:00 AM EDT Consult Plastic & Re[facility] [place] [address] [place] [id number] Sherice MarrerohALONSO [address] [place] [address] Health Maintenance Due Date Last Done Comments [...] Associated Diagnosis Comments LIPID PANEL Routine 04/18/2018 HM HIV SCREENING [...] l Result * Hm HIV Screening (06/14/2017) HIV Screening abstracted Historical Provider HEALTH MAINTENANCE Final Result * Pap smear (06/13/2017) 06/13/2017 Narrative HISTORICAL TESTING LAB RESULTING AGENCY - 06/20/2017 4:55 PM EDT [id number] THINPREP PAP, IMAGED AND CELL BLOCK: NEGATIVE [...] Most Recently Relevant to Health Maintenance Insurance [facility] HEALTH PLAN MEDICAID - [place] Care Teams Charge Loader Relationship Specialty Start Date End Date Jo Ann Hebert PA [address] [place] [address], [address] [place] [address] PCP - General 08/25/24
--- OUTSIDE RECORDS SUMMARY | 2024-08-26 15:29 | XMS_ITS | Clinical Summary ---
Author Organization [facility] Address [address] [place] [address] Care Team Providers Care Metal Coater Name Role Phone Ana Cortez NP Primary Care Provider [phone] Allergies Active Allergy Reactions Criticality Noted Date [...] (P ap Smear) 2010 Influenza Vaccine (#1) 2024 DTap / Tdap / Td (2 - Td or Tdap) 10/12/2025 016 Pneumococcal Vaccine Aged Out No long er eligible based on patient's age to complete this topic RSV Ped < 20 months Aged Out No longe r eligible based on patient's age to complete this topic Care Teams Metal Coater Relationship Specialty Start Date End Date Ana Cortez NP [address] [address] PCP - General Family Medicine 09/21/22
--- OUTSIDE RECORDS SUMMARY | 2024-08-26 15:29 | XMS_ITS | Referral Summary ---
Author Organization [facility] Address [address] [place] [address] Care Team Providers Care Boilermaker Mechanic Name Role Phone Ana Cortez Primary Care Provider [phone] Encounters Date Type Department Care Team Description 05/28/2024 Refill [facility] [address] [place] [address] [phone] Utility Systems Repairer Operator: Pushpa Amin, ALONSO Dean from Last [...] Assessment & Plan: Will be scheduled with [facility] GI. Saw Dr. [...] Treatment Not on file Insurance [employer] [place] [id number] [employer] Care Teams Boilermaker Mechanic Relationship Specialty Start Date End Date Ana Cortez [address] [place] [address] PCP - General 04/10/23
== END 2024-08-26 16:24 ==
LOC: HO.HWS 14:13
PROVIDERS: Visit Provider Advanced Practice Midwife
DX: R30.0 Dysuria (principal); N81.9 Female genital prolapse, unspecified
CPT/HCPCS: 99203

== ENCOUNTER 2024-08-26 15:16 | Outpatient (REF) | payer OTHER, SELFPAY ==
[2024-08-26 20:57] LABS: Bacterial Vaginosis PCR NEGATIVE (Negative); Candida Group PCR DETECTED (Not Detect); Candida glab krusei PCR NOT DETECTED (Not Detect); Trichomonas vaginalis PCR NOT DETECTED (Not Detect)
[2024-08-26 22:10] LABS: CT PCR NOT DETECTED (Not Detect.); NG PCR NOT DETECTED (Not Detect.)
== END 2024-08-26 15:17 | disposition home or self-care (01) ==
LOC: HO.LNP 15:16
PROVIDERS: Visit Provider Advanced Practice Midwife
DX: Z01.419 Encounter for gynecological examination (general) (routine) without abnormal findings (principal); R30.0 Dysuria
CPT/HCPCS: 81515; 87086; 87491; 87591; 87626; 88175

== ENCOUNTER 2024-09-03 18:59 | Outpatient (REF) | payer OTHER, SELFPAY ==
--- NOTE | ~2024-09-03 | MR_ITS ---
EXAMINATION: MR BRAIN WITHOUT CONTRAST CLINICAL INFORMATION: Chronic migraine with aura. COMPARISON: June 21, 2018. TECHNIQUE: MRI of the brain was obtained using routine sequences without contrast. FINDINGS: No restricted diffusion. No acute intracranial hemorrhage, mass effect, midline shift, hydrocephalus or herniation. Pedersen-white matter differentiation is normal. Posterior cranial fossa contents demonstrated no signal abnormality or gross mass effect. Craniocervical junction demonstrates normal position of the cerebellar tonsils. Sellar/suprasellar region is normal. Flow-void signal within the main cerebral vessels is normal. There is a 9 mm prominent lymph nodes, left retropharyngeal compartment with restricted diffusion. Polypoid left maxillary sinus disease. Mucosal thickening, ethmoid air cells and right maxillary sinus. MR/MR head/brain wo con IMPRESSION: No acute or structural brain abnormality. Polypoid paranasal sinus disease involving mostly left maxillary sinus. 9 mm restricted diffusion left retropharyngeal lymph node. Electronically signed by: Kevin Saeed MD 09/04/2024 07:06 AM EDT
== END 2024-09-03 19:00 | disposition home or self-care (01) ==
LOC: HO.MRI 18:59
PROVIDERS: Visit Provider Psychiatry & Neurology Neurology
DX: G43.E19 Chronic migraine with aura, intractable, without status migrainosus (principal); M35.2 Behcet's disease
CPT/HCPCS: 70551

== ENCOUNTER → 2024-09-03 18:59 | Outpatient (BNV) | payer OTHER, SELFPAY | PROVIDERS: Visit Provider Radiology Diagnostic Radiology | DX: J34.89 Other specified disorders of nose and nasal sinuses (principal) | CPT/HCPCS: 70551 ==

== ENCOUNTER 2024-09-08 14:02 | Outpatient (AMB) | payer OTHER, SELFPAY ==
[2024-09-08 14:03] VITALS: BP 92/60; PULSE 76; O2SAT 99; BMI 25.7
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
--- OUTSIDE RECORDS SUMMARY | 2024-09-08 14:46 | XMS_ITS | Clinical Summary ---
Author Organization [address] Address [address] [place] [address] [place] [address] Phone Care Team Providers Care Police Chief Deputy Name Role Phone Jo Ann Hebert Primary Care Provider [phone] Allergies Active Allergy Reactions Criticality Noted Date [...] obesity with BMI of 4 0.0-44.9, adult ([facility] V24, [facility] V28) 11/23/2023 Allergic conjunctivitis of both eyes 06/19/2019 Perennial allergic rhinitis 06/19/2019 Arthralgia 04/09/2019 Lower abdominal pain 04/09/2019 IgA deficiency ([facility] V24, [facility]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 Melanoma in situ ([facility] V24, [facility] V28) 0703/2018 Nevus 08/12/2018 Insulin controlled gestation [...] Team Description 08/29/2024 Telephone General Surgery - [place] [address] [place] [address] Arturo Albarran DO procedure letter (08/29/2024 mailed letter) 08/27/2024 11:00 AM EDT Consult Plastic & Reconstructive Surgery - [place] [address] [place] [address] [place] Abdominal pannus [...] EDT Procedure visit Plastic & Reconstructive Surgery [place] [facility] [address] [address] Arturo Albarran DO [address] [address] 09/24/2024 1:00 PM EDT Office Visit Plastic & Reconstructive Surgery [place] [facility] [address] [address] [place] [address] [address] Scheduled Procedures Name Priority Associated Diagnoses Date/Ti [...] Result * HIV Screening (06/14/2017) Pathologist [facility] HIV Screening abstracted Historical Provider HEALTH MAINTENANCE Final Result * Pap smear (06/13/2017) 06/13/2017 Narrative HISTORICAL TESTING LAB RESULTING AGENCY - 06/20/2017 4:55 PM EDT [id number] THINPREP PAP, IMAGED AND CELL BLOCK: NEGATIVE [...] Maintenance Insurance [facility] [employer] [facility] MEDICAID - [place] Care Teams Police Chief Deputy Relationship Specialty Start Date End Date Jo Ann Hebert PA [address] [place] [address], [address] [place] [address] PCP - General 08/25/24
--- OUTSIDE RECORDS SUMMARY | 2024-09-08 14:46 | XMS_ITS | Referral Summary ---
Author Organization [facility] Address [address] [place] [address] Care Team Providers Care Human Resources Coordinator Name Role Phone Ana Cortez Primary Care Provider [phone] Allergies Active Allergy Reactions Criticality Noted Date [...] Assessment & Plan: Will be scheduled with [facility] GI. Saw Dr. Reyes who recommended work [...] Plan of Treatment Not on file Insurance [facility] MEDICAID [employer] Care Teams Human Resources Coordinator Relationship Specialty Start Date End Date Ana Cortez [address] [place] [address] PCP - General 04/10/23
--- OUTSIDE RECORDS SUMMARY | 2024-09-08 14:46 | XMS_ITS | Encounter Summary ---
Author Organization [facility] Address Formerly [facility] [employer] [address] [place] [address] Phone Care Team Providers Care Industry Analyst Name Role Phone Pcp, Unknown Primary Care Provider Unavailabl e Encounter Details Date Type Department Care Team (Late st Contact Info) Description 04/12/2023 Procedure Pass [facility], Ct Scan - [address] [address] Social History Tobacco Use Types Packs/Day Years [...] 04/12/2023 9:23 PM Lucille Shah RN * [place] Suicide Severity Rating Scale (Screener/Recent Self-Report) Question [...] documented as of this encounter Care Teams Industry Analyst Relationship Specialty Start Date End Date Pcp, Unknown PCP - General 04/12/23 documented as of this encounter Additional Source Comments The information contained in this document represents components of the legal health record. It is not the complete legal health record.[facility]
--- OUTSIDE RECORDS SUMMARY | 2024-09-08 14:46 | XMS_ITS | Clinical Summary ---
Author Organization [facility] Address [address] [place] [address] Care Team Providers Care Adhesive Bandage Machine Operator Name Role Phone Ana Cortez NP Primary Care Provider [phone] Allergies Active Allergy Reactions Criticality Noted Date [...] age to complete this topic Care Teams Adhesive Bandage Machine Operator Relationship Specialty Start Date End Date Ana Cortez NP [address] [address] PCP - General Family Medicine 09/21/22
== END 2024-09-08 14:52 | disposition home or self-care (01) ==
PROVIDERS: Visit Provider Nurse Practitioner Family
DX: R00.2 Palpitations (principal); R00.0 Tachycardia, unspecified; Z01.810 Encounter for preprocedural cardiovascular examination
CPT/HCPCS: 93010; 99213; G2211

== ENCOUNTER → 2024-09-08 14:02 | Outpatient (BNVA) | payer OTHER, SELFPAY | PROVIDERS: Visit Provider Nurse Practitioner Family | DX: Z01.810 Encounter for preprocedural cardiovascular examination (principal); R00.2 Palpitations; R00.0 Tachycardia, unspecified | CPT/HCPCS: 93005; 99212 ==

== ENCOUNTER 2024-09-09 11:41 | Day surgery (SDC) | payer OTHER, SELFPAY ==
[2024-09-05 16:25] VITALS: BMI 24.8
--- NOTE | 2024-09-08 11:19 | HO.ANESPROP2 ---
Documented by User: Madelin White NP 09/08/24 11:23 HPI - Anesthesia Eval Consult details Narrative: 34yo F for Cystoscopy Hydrodistention of Bladder,with possible biopsy Cardiac preop eval pendin09/08/24 s/p Right Carpal Tunnel Release 04/2024 with MAC Behcet disease ?POTS - [place] [facility] Active Problems Active Problems: All Active Problems Chronic migraine with aura (Acute) IgA deficiency (Acute) Hair loss (Acute) Tear of meniscus of right knee as current injury (Acute) History of pyelonephritis (Acute) Recurrent UTI (Acute) Prolapse of female pelvic organs (Acute) Anxiety (Acute) Depression (Acute) S/P carpal tunnel release (Acute) Benign joint hypermobility syndrome (Acute) Osteoarthritis of knees, bilateral (Acute) Polyarthralgia (Acute) Carpal tunnel syndrome, right (Acute) Hematuria (Acute) Dysuria (Acute) Dizziness (Acute) Tachycardia (Acute) Elbow pain (Acute) Change in bowel habit (Acute) Abdominal bloating (Acute) Vomiting (Acute) Urinary retention (Acute) Dry eyes (Acute) Transaminitis (Acute) Fibromyalgia (Acute) Uveitis (Acute) Other care home (current) drug therapy (Acute) Back pain (Acute) Behcet disease with multisystem involvement (Acute) Thoracic compression fracture (Acute) Myelopathy (Acute) Atrophic gastritis (Acute) Status post laparoscopic cholecystectomy (Acute) Biliary dyskinesia (Acute) Cervicalgia (Acute) Bilateral hip pain (Acute) Muscle spasticity (Acute) Asthma (Acute) Migraine headache (Acute) 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] (Acute) Past Medical History Medical History Melanoma Chronic migraine with aura Kings-Danlos disease Migraine Asthma Behcet disease with multisystem involvement TMJ (temporomandibular joint syndrome) Other specified disorders of bladder 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] Personal history of malignant melanoma of skin Muscle spasm of back Chronic pain syndrome Generalized anxiety disorder Major depressive disorder, single episode, in full remission Family History Family history of problems with anesthesia: No Surgical History Surgical History H/O right wrist surgery Hx laparoscopic cholecystectomy (10/22/23) Hx of tonsillectomy History of appendectomy History of Problems with Anesthesia: No Social History Social History Household Members: Spouse and Family Housing: House Are you a primary nanny caregiver to a significant other at home: No Do you presently have visiting nurse or other home services: No Alcohol intake: current Alcohol intake frequency: holidays/special occasions only Patient Tobacco Use Status: Former Tobacco user Tobacco use type: Cigarette e-Cigarette/Vaping Use: Currently Using Frequency of e-Cigarette/Vaping Use: daily Second Hand Smoke Exposure: Yes Use of substances other than those prescribed or required for medical reasons: No Substance Use Type: Marijuana Substance Use Type Other:: vapes marijuana Substance Use Frequency: Daily Have you been hit, kicked, punched, or otherwise hurt by someone within the past year? If so, by whom?: No Are you DNR?: No Advance Directives: Yes Advance Directives Information Provided: Yes Advance Directives on File: No Advance Directives Date on File: 10/29/23 Poor oral hygiene: No service: No Current occupational status: disabled Cognitive needs: Yes (Wheelchair, Walker, Cane) Hearing needs: No Vision needs: Yes (Glasses) Meds Allergies Allergy/AdvReac Type Severity Reaction Status Date / Time hydroxychloroquine (From Allergy Intermediate Vomiting Verified 09/08/24 14:09 Plaquenil) leflunomide Allergy Intermediate Diarrhea Verified 09/08/24 14:09 adhesive tape Allergy Unknown Unknown Verified 09/08/24 14:09 erythromycin base Allergy Unknown UNKNOWN Verified 09/08/24 14:09 (ERYTHROMYCIN BASE) latex (LATEX) Allergy Unknown UNKNOWN Verified 09/08/24 14:09 acetaminophen (From Tylenol) AdvReac Unknown elevates Verified 09/08/24 14:09 LFT's Home Medications ?Medication ?Instructions ?Recorded ?Confirmed ?Last Taken ?Type duloxetine 30 mg capsule,delayed 30 mg PO DAILY 08/04/22 09/08/24 10/18/23 History release duloxetine 60 mg capsule,delayed 60 mg PO DAILY 10/18/23 09/08/24 10/18/23 History release mupirocin 2 % topical ointment 1 appl topical BID PRN Rash 10/18/23 09/08/24 Unknown History dlyfbeva-xmaodtiqw-ktowwesc 3.5 1 drp ophthalmic (eye) Q12H 01/02/24 09/08/24 Unknown History mg/mL-10,000 unit/mL-0.1% eye drops turmeric 400 mg capsule 400 mg PO DAILY 01/02/24 09/08/24 Unknown History glucosamine-chondroitin 250 mg-200 2 tab PO TID 01/03/24 09/08/24 Unknown History mg tablet (Osteo Bi-Flex) diazepam 5 mg tablet 5 mg PO TID PRN Anxiety 02/22/24 09/08/24 Unknown History azelastine 137 mcg (0.1 %) nasal 1 spray intranasal BID 05/27/24 09/08/24 Unknown History spray dextroamphetamine-amphetamine 20 1 tab PO BID 05/27/24 09/08/24 Unknown History mg tablet prednisolone acetate 1 % eye drp ophthalmic (eye) 06/09/24 09/08/24 Unknown History drops,suspension dextroamphetamine-amphetamine ER 1 cap PO QAM 08/04/24 09/08/24 Unknown History 10 mg 24hr capsule,extend release (Adderall XR) minoxidil 2.5 mg tablet 1.25 mg PO DAILY 08/04/24 09/08/24 Unknown History oxycodone 10 mg tablet 10 mg PO Q8H 08/14/24 09/08/24 Unknown History tizanidine 2 mg tablet 4 mg PO Q8H PRN for muscle spasm 09/05/24 09/08/24 Unknown History Exam Height,Weight and Vital Signs: Height 5 ft 3 in Weight 63.503 kg Pertinent Lab Results Pertinent Lab Results: Laboratory Tests 03/25/24 06:13 WBC 7.5 Hgb 13.4 Hct 36.5 L Plt Count 252 Sodium 135 Potassium 3.9 Chloride 99 Carbon Dioxide 24 BUN 8 L Creatinine 0.60 Laboratory Tests 08/04/24 16:33 WBC 7.1 Hgb 11.5 L Hct 33.5 L Plt Count 235 D Narrative Narrative: ECHO 03/2024 Conclusions: - Normal study EKG 02/2024 EKG Details: Sinus rhythm 74 beats per minute, normal axis, normal ECG, QTC 439 milliseconds. Holter 2024 1. Patient was monitored for total period of 2 days and 22 hours 2. Baseline was normal sinus rhythm with average heart of 68 beats per minute 3. Frequent sinus bradycardia with 32.5% of time heart rate below 60 beats per minute 4. No significant bradycardia or pauses noted 5. Rare PACs noted 6. No patient reported events MR head/brain wo con 2024 IMPRESSION: No acute or structural brain abnormality. Polypoid paranasal sinus disease involving mostly left maxillary sinus. 9 mm restricted diffusion left retropharyngeal lymph node. Airway Mallampati Class: II TM Dist: >3cm Neck ROM: Full Loose/Missing/Broken Teeth: Yes (multiple chipped teeth but nothing loose) Heart: S1S2 Lungs: CTAB Assessment and Plan Assessment Anesthesia Assessment: Chart Reviewed Final Anesthetic Review Family History of Problems with Anesthesia: No History of Problems with Anesthesia: No Documented by User: Ramírez Vang MD 09/09/24 12:05 [facility] Past Medical History Medical History Melanoma Chronic migraine with aura Kings-Danlos disease Migraine Asthma Behcet disease with multisystem involvement TMJ (temporomandibular joint syndrome) Other specified disorders of bladder 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] Personal history of malignant melanoma of skin Muscle spasm of back Chronic pain syndrome Generalized anxiety disorder Major depressive disorder, single episode, in full remission Patient : No Surgical History Surgical History H/O right wrist surgery Hx laparoscopic cholecystectomy (10/22/23) Hx of tonsillectomy History of appendectomy Social History Social History Household Members: Spouse and Family Housing: House Are you a primary nanny caregiver to a significant other at home: No Do you presently have visiting nurse or other home services: No Alcohol intake: current Alcohol intake frequency: holidays/special occasions only Patient Tobacco Use Status: Former Tobacco user Tobacco use type: Cigarette e-Cigarette/Vaping Use: Currently Using Frequency of e-Cigarette/Vaping Use: daily Second Hand Smoke Exposure: Yes Use of substances other than those prescribed or required for medical reasons: No Substance Use Type: Marijuana Substance Use Type Other:: vapes marijuana Substance Use Frequency: Daily Have you been hit, kicked, punched, or otherwise hurt by someone within the past year? If so, by whom?: No Are you DNR?: No Advance Directives: Yes Advance Directives Information Provided: Yes Advance Directives on File: No Advance Directives Date on File: 10/29/23 Poor oral hygiene: No service: No Current occupational status: disabled Cognitive needs: Yes (Wheelchair, Walker, Cane) Hearing needs: No Vision needs: Yes (Glasses) Meds Allergies Allergy/AdvReac Type Severity Reaction Status Date / Time hydroxychloroquine (From Allergy Intermediate Vomiting Verified 09/08/24 14:09 Plaquenil) leflunomide Allergy Intermediate Diarrhea Verified 09/08/24 14:09 adhesive tape Allergy Unknown Unknown Verified 09/08/24 14:09 erythromycin base Allergy Unknown UNKNOWN Verified 09/08/24 14:09 (ERYTHROMYCIN BASE) latex (LATEX) Allergy Unknown UNKNOWN Verified 09/08/24 14:09 acetaminophen (From Tylenol) AdvReac Unknown elevates Verified 09/08/24 14:09 LFT's Home Medications ?Medication ?Instructions ?Recorded ?Confirmed ?Last Taken ?Type duloxetine 30 mg capsule,delayed 30 mg PO DAILY 08/04/22 09/08/24 10/18/23 History release duloxetine 60 mg capsule,delayed 60 mg PO DAILY 10/18/23 09/08/24 10/18/23 History release mupirocin 2 % topical ointment 1 appl topical BID PRN Rash 10/18/23 09/08/24 Unknown History ivirdqqq-rllftwvgm-shmtahpa 3.5 1 drp ophthalmic (eye) Q12H 01/02/24 09/08/24 Unknown History mg/mL-10,000 unit/mL-0.1% eye drops turmeric 400 mg capsule 400 mg PO DAILY 01/02/24 09/08/24 Unknown History glucosamine-chondroitin 250 mg-200 2 tab PO TID 01/03/24 09/08/24 Unknown History mg tablet (Osteo Bi-Flex) diazepam 5 mg tablet 5 mg PO TID PRN Anxiety 02/22/24 09/08/24 Unknown History azelastine 137 mcg (0.1 %) nasal 1 spray intranasal BID 05/27/24 09/08/24 Unknown History spray dextroamphetamine-amphetamine 20 1 tab PO BID 05/27/24 09/08/24 Unknown History mg tablet prednisolone acetate 1 % eye drp ophthalmic (eye) 06/09/24 09/08/24 Unknown History drops,suspension dextroamphetamine-amphetamine ER 1 cap PO QAM 08/04/24 09/08/24 Unknown History 10 mg 24hr capsule,extend release (Adderall XR) minoxidil 2.5 mg tablet 1.25 mg PO DAILY 08/04/24 09/08/24 Unknown History oxycodone 10 mg tablet 10 mg PO Q8H 08/14/24 09/08/24 Unknown History tizanidine 2 mg tablet 4 mg PO Q8H PRN for muscle spasm 09/05/24 09/08/24 Unknown History Assessment and Plan Assessment Anesthesia Assessment: Anesthesia Plan Discussed Final Anesthetic Review NPO: Yes ASA Class: III Final Preanesthetic Review: No Changes in Pt Med Stat, Meds/Allgs Chart Reviewed, Consent Obtained/Reviewed and Anes Risks/Benef Reviewed Patient Risk: Intermediate Procedure Risk: Low Anesthetic Plan Anesthetic Plan: GA and Agree w/ Assess. and Plan Disposition: Standard PACU
[2024-09-09] VITALS (7 sets, daily range): BP systolic 96–116; BP diastolic 52–78; PULSE 42–50; RESP 16; TEMP 36.2–36.9; O2SAT 98–99
[2024-09-09 11:59] LABS: UPreg QC Valid YES
--- NOTE | 2024-09-09 12:07 | MHC.SHP ---
Pre-Procedural Eval Section A - 24 Hr Update-Section A only Date of Service: 09/09/24 The patient is an INPATIENT: No The patient has been examined within 24 hours of the surgical procedure. The History & Physical has been completed within 30 days and I have reviewed it.: Yes Section B - Complete if H&P > 30 days Chief Complaint: Hematuria, unspecified Allergies: Allergies Allergy/AdvReac Type Severity Reaction Status Date / Time hydroxychloroquine (From Allergy Intermediate Vomiting Verified 09/08/24 14:09 Plaquenil) leflunomide Allergy Intermediate Diarrhea Verified 09/08/24 14:09 adhesive tape Allergy Unknown Unknown Verified 09/08/24 14:09 erythromycin base Allergy Unknown UNKNOWN Verified 09/08/24 14:09 (ERYTHROMYCIN BASE) latex (LATEX) Allergy Unknown UNKNOWN Verified 09/08/24 14:09 acetaminophen (From Tylenol) AdvReac Unknown elevates Verified 09/08/24 14:09 LFT's Plan Diagnosis/Plan: Unchanged I have reviewed the history and physical and performed a pertinent physical examination on my patient. No changes have occurred unless specified. Cystoscopy Hydrodistension, possible bladder biopsy. Discussed risks to include but not limited to, blood in the urine, burning with urination, urgency. Time Spent With Patient Time: Total time managing care of this patient today ____ minutes.
--- NOTE | 2024-09-09 12:08 | W.PM.OPN ---
Operative Note Operative Note Date of Service: 09/09/24 Narrative: PREOP DIAGNOSIS: pelvic pain, microscopic hematuria POSTOP DIAGNOSIS: Interstitial cystitis, pelvic pain, microscopic hematuria, PROCEDURE: CYSTOSCOPY HYDRODISTENTION Anethesia: General Surgeon: Dr. Maci Gonzalez Details of procedure: The patient was brought into the operating room placed on the OR table in supine position. 2 g of Ancef IV. General anesthesia was administered. The patient was repositioned into lithotomy position, prepped and draped in the usual sterile fashion. Time-out was done per protocol. A 22 fr cystoscope was placed transurethrally into the bladder. Urine was drained from the bladder -neglible. The right and left ureteral orifices were visualized. The entire bladder was visualized. There were no suspicious bladder lesions seen. There were mild trabeculations noted. The bladder was filled with sterile water at 80 cm of water pressure under gravity. The bladder was distended for 2 minutes. Bladder capacity measured 600 mL. Revisualization of the bladder, noted minimal glomerulations. No hunner ulcerations. The bladder was refilled with sterile water again at 80 cm of water pressure under gravity. The bladder was distended for 3 minutes. The fluid was drained from the bladder and measured 675 mL. The cystoscope was removed. 2% lidocaine urojet was passed transurethrally, Solution of 1% lidocaine plain, 30 mL, instilled transurethrally into the bladder. The patient was brought out of anesthesia and taken to recovery in stable condition. Complications: None EBL: minimal (<5 mL) Drains: none
[2024-09-09] MEDS: Lactated Ringers 1,000 ML 80 ML IVCONT (12:14)
== END 2024-09-09 14:04 | disposition home or self-care (01) ==
PROVIDERS: Anesthesiology; Visit Provider Urology
PROC: 0T7B7ZZ Dilation of Bladder, Via Natural or Artificial Opening (ICD-10-PCS; CPT 52260; principal; 2024-09-09 13:30)
DX: N30.10 Interstitial cystitis (chronic) without hematuria (principal); R10.2 Pelvic and perineal pain; R31.29 Other microscopic hematuria; N32.89 Other specified disorders of bladder; R30.0 Dysuria; N81.9 Female genital prolapse, unspecified; Z87.448 Personal history of other diseases of urinary system; M35.2 Behcet's disease; Q79.60 Ehlers-Danlos syndrome, unspecified; D80.2 Selective deficiency of immunoglobulin A [IgA]; G89.4 Chronic pain syndrome; G43.909 Migraine, unspecified, not intractable, without status migrainosus; G62.9 Polyneuropathy, unspecified; G72.9 Myopathy, unspecified; Z91.81 History of falling; Z85.820 Personal history of malignant melanoma of skin; F32.5 Major depressive disorder, single episode, in full remission; F41.1 Generalized anxiety disorder; Z79.899 Other long term (current) drug therapy; Z99.89 Dependence on other enabling machines and devices; Z88.1 Allergy status to other antibiotic agents; Z88.8 Allergy status to other drugs, medicaments and biological substances; L23.1 Allergic contact dermatitis due to adhesives; Z91.040 Latex allergy status; Z87.891 Personal history of nicotine dependence
CPT/HCPCS: 52260; 81025; J0690; J1644; J2003; J2704; J3010

== ENCOUNTER → 2024-09-09 11:41 | Outpatient (BNV) | payer OTHER, SELFPAY | PROVIDERS: Visit Provider Urology | DX: N30.10 Interstitial cystitis (chronic) without hematuria (principal); R31.29 Other microscopic hematuria; R10.2 Pelvic and perineal pain | CPT/HCPCS: 52260 ==

== ENCOUNTER 2024-09-19 14:23 | Outpatient (AMB) | payer OTHER, SELFPAY ==
--- OUTSIDE RECORDS SUMMARY | 2024-09-19 14:25 | XMS_ITS | Referral Summary ---
Author Organization [facility] Address [address] [place] [address] Care Team Providers Care Program Director Group Work Name Role Phone Ana Cortez Primary Care Provider [phone] Allergies Active Allergy Reactions Criticality Noted Date [...] Assessment & Plan: Will be scheduled with [facility] GI. Saw Dr. Reyes who [...] Plan of Treatment Not on file Insurance [facility] MEDICAID [employer] MED[employer]ID Care Teams Program Director Group Work Relationship Specialty Start Date End Date Ana Cortez [address] [place] [address] PCP - General 04/10/23
--- OUTSIDE RECORDS SUMMARY | 2024-09-19 14:25 | XMS_ITS | Encounter Summary ---
Author Organization [facility] Address [facility] [employer] [address] [place] [address] Phone Care Team Providers Care Client Care Representative Name Role Phone Pcp, Unknown Primary Care Provider Unavailabl e Encounter Details Date Type Department Care Team (Late st Contact Info) Description 04/12/2023 Procedure Pass [facility], Ct Scan - [address] [address] Social History Tobacco Use Types Packs/Day Years [...] 04/12/2023 9:23 PM Lucille Shah RN * [place] Suicide Severity Rating Scale (Screener/Recent Self-Report) Question [...] documented as of this encounter Care Teams Client Care Representative Relationship Specialty Start Date End Date Pcp, Unknown PCP - General 04/12/23 documented as of this encounter Additional Source Comments The information contained in this document represents components of the legal health record. It is not the complete legal health record.[facility]
--- OUTSIDE RECORDS SUMMARY | 2024-09-19 14:25 | XMS_ITS | Clinical Summary ---
Author Organization [address] Address [address] [place] [address] [place] [address] Phone Care Team Providers Care Director Of Research Name Role Phone Jo Ann Hebert Primary Care Provider [phone] Allergies Active Allergy Reactions Criticality Noted Date [...] obesity with BMI of 4 0.0-44.9, adult ([facility] V24, [facility] V28) 11/23/2023 Allergic conjunctivitis of both eyes 06/19/2019 Perennial allergic rhinitis 06/19/2019 Arthralgia 04/09/2019 Lower abdominal pain 04/09/2019 IgA deficiency ([facility] V24, [facility]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 Melanoma in situ ([facility] V24, [facility] V28) 0703/2018 Nevus 08/12/2018 Insulin controlled gestation [...] Team Description 08/29/2024 Telephone General Surgery - [place] [address] [place] [address] Arturo Albarran DO procedure letter (08/29/2024 mailed letter) 08/27/2024 11:00 AM EDT Consult Plastic & Reconstructive Surgery - [place] [address] [place] [address] [place] Abdominal pannus [...] APPENDECTOMY PROCEDURE: HISTORICAL APPENDECTOMY ESOPHAGOGASTRODUODENOSCOPY 03/29/15 PROCEDURE: NC EGD TRANSORAL BIOPSY SINGLE/MULTIPLE; COMMENT: mild distal [...] Care Team (Late st Contact Info) Description 10/09/2024 2:00 PM EDT Procedure visit Plastic & Reconstructive Surgery [facility] [address] [phone] Arturo Albarran DO [address] [address] 10/17/2024 1:00 PM EDT Office Visit Plastic & Reconstructive Surgery [facility] [address] [address] [place] [address] [address] 12/09/2024 1:00 PM EDT Appointment [facility] [address] [place] [phone] Scheduled Procedures Name Priority Associated Diagnoses Date/Ti [...] RESULTING AGENCY - 06/20/2017 4:55 PM EDT [id number] THINPREP PAP, IMAGED AND CELL BLOCK: NEGATIVE [...] Z12.4, Z34.81, PAP HX: NEGATIVE 06/09/2017, Long [facility] ORDERA BLES Final Result HISTORICAL TESTING LAB RESULTING AGENCY from Last 3 Months or Most Recently Relevant to Health Maintenance Insurance [facility] MEDICAID - [place] Care Teams Director Of Research Relationship Specialty Start Date End Date Jo Ann Hebert PA [address] [place] [address], [address] [place] [address] PCP - General 08/25/24
--- OUTSIDE RECORDS SUMMARY | 2024-09-19 14:25 | XMS_ITS | Clinical Summary ---
Author Organization [facility] Address [address] [place] [address] Care Team Providers Care Body Finisher Name Role Phone Ana Cortez NP Primary Care Provider [phone] Allergies Active Allergy Reactions Criticality Noted Date [...] age to complete this topic Care Teams Body Finisher Relationship Specialty Start Date End Date Ana Cortez NP [address] [address] PCP - General Family Medicine 09/21/22
[2024-09-19 14:30] VITALS: BP 100/56; PULSE 81; TEMP 36.9; O2SAT 97; BMI 24.8
--- NOTE | 2024-09-19 14:30 | AM.OFFWIN_ITS ---
Intake Vital Signs 09/19/24 14:30 Height 5 ft 3 in Weight 140 lb BMI 24.8 BP 100/56 L Blood Pressure Location Lt brachial Position Sitting Pulse 81 Pulse Source Pulse Oximeter Temp 98.4 F Temp Source Oral Pulse Oximetry (%) 97 Oxygen Delivery Method Room Air Intake Visit Reasons: EP Stye, eye infection, migraine Patient Tobacco Use Status: Former Tobacco user Hand Frame Surgical Elastic Knitter Required: No Allergies hydroxychloroquine (From Plaquenil) Allergy (Intermediate, Verified 09/19/24 14:38) Vomiting leflunomide Allergy (Intermediate, Verified 09/19/24 14:38) Diarrhea adhesive tape Allergy (Unknown, Verified 09/19/24 14:38) Unknown erythromycin base (ERYTHROMYCIN BASE) Allergy (Unknown, Verified 09/19/24 14:38) UNKNOWN latex (LATEX) Allergy (Unknown, Verified 09/19/24 14:38) UNKNOWN acetaminophen (From Tylenol) Adverse Reaction (Unknown, Verified 09/19/24 14:38) elevates LFT's Do you need a note to return to daycare/school/sports/work: No HPI HPI Comments History of Present Illness Details This is a 34-year-old female with a past medical history of Behcet disease and Ehrlos Danlos syndrome presenting for evaluation of a left eye stye. Patient states she has been using warm compresses but noted purulent discharge from her eye this morning. Patient denies having any fevers or chills and denies any visual changes. [facility] Medical History (Updated 09/19/24 @ 15:27 by Shyanne Smith PA-C) Acid reflux Gastritis Neuropathy Weakness Cough Melanoma Chronic migraine with aura Kings-Danlos disease Migraine Asthma Behcet disease with multisystem involvement TMJ (temporomandibular joint syndrome) Other specified disorders of bladder 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] Personal history of malignant melanoma of skin Muscle spasm of back Chronic pain syndrome Generalized anxiety disorder Major depressive disorder, single episode, in full remission Surgical History (Updated 09/17/24 @ 09:51 by Kat Villegas RN) Hx of cystoscopy History of facial surgery H/O colonoscopy Hx of local excision of skin lesion History of esophagogastroduodenoscopy (EGD) H/O right wrist surgery Hx laparoscopic cholecystectomy (10/22/23) Hx of tonsillectomy History of appendectomy Social History Household Members: Spouse and Family Housing: House Are you a primary nurse wound care to a significant other at home: No Do you presently have visiting nurse or other home services: No Alcohol intake: current Alcohol intake frequency: does not drink Patient Tobacco Use Status: Former Tobacco user Tobacco use type: Cigarette e-Cigarette/Vaping Use: Currently Using Second Hand Smoke Exposure: Yes Substance Use Type: Marijuana Advance Directives Date on File: 10/29/23 service: No Current occupational status: disabled Cognitive needs: Yes (Wheelchair, Walker, Cane) Hearing needs: No Vision needs: Yes (Glasses) Female Reproductive History Menstrual Age of Menarche: 10 Review of Systems Const All systems reviewed & are unremarkable except as noted in HPI and below Denies chills and Denies fever(s) Eyes Denies blurry vision, Denies exophthalmos, Denies change in vision, Reports eye pain (left upper eyelid), Denies seeing flashes and Denies photophobia ENT Reports no additional complaints Card Reports no additional complaints Resp Reports no additional complaints Musc Reports no additional complaints Skin/Breast Details: Redness and swelling of left upper eyelid. Neuro Reports no additional complaints Psych Reports no additional complaints Physical Exam Vital Signs: Last Vital Signs Temp 98.4 F 09/19/24 14:30 Pulse 81 09/19/24 14:30 BP 100/56 L 09/19/24 14:30 Pulse Ox 97 09/19/24 14:30 Oxygen Delivery Method Room Air 09/19/24 14:30 BMI result Body Mass Index 24.8 Patient is afebrile. Const General: cooperative, comfortable, no acute distress, well developed, alert, awake and Physically active Nutritional Appearance: average body habitus Orientation/consciousness: patient oriented x3 Limitations: no limitations HEENT Face and sinus: Yes normal facial exam, Yes face symmetric and No sinus tenderness Mouth: Normal oral and palatal mucosa present and moist mucous membranes Eyes Visual Ortega: normal visual ortega by confrontation Alignment and Position: alignment normal and position normal Periorbital: periorbital findings normal Eyelids: No eyelids normal (There is erythema, edema and tenderness to touch of the left upper eyelid) Conjunctivae: conjunctivae normal Sclerae: sclerae normal Corneas: corneas normal Pupils: Equal, round and reactive pupils present EOM: EOMs intact bilaterally Direct Ophthalmoscopy: normal light reflex, no photophobia and No photophobia Neuro General: patient oriented x3 Cranial nerves: Yes Equal, round and reactive pupils present Psych Appearance: grossly normal Mental Status: mental status grossly normal Insight: Good insight present (Psych) Judgement: Good judgement present (Psych) Assessment & Plan Assessment & Plan (1) Hordeolum externum (stye): Comment: There is no evidence of an underlying conjunctivitis and no discharge noted from the left eye. Code(s): H00.019 - Hordeolum externum unspecified eye, unspecified eyelid Qualifiers: Laterality: left Eyelid: upper Qualified Code(s): H00.014 - Hordeolum externum left upper eyelid Plan: Warm compresses up to 5 times daily. Follow up with PCP as needed. Antibiotic therapy is not warranted at this time. Coding Level of Care Code Est Pt Level 3 (39465) Diagnoses Hordeolum externum of left upper eyelid H00.014 Laterality: left Eyelid: upper Time Spent (min) 20
== END 2024-09-19 15:24 | disposition home or self-care (01) ==
PROVIDERS: Visit Provider Physician Assistant
DX: H00.014 Hordeolum externum left upper eyelid (principal)

== ENCOUNTER → 2024-09-19 14:23 | Outpatient (BNVA) | payer OTHER, SELFPAY | PROVIDERS: Visit Provider Physician Assistant | DX: H00.014 Hordeolum externum left upper eyelid (principal); G43.909 Migraine, unspecified, not intractable, without status migrainosus; M35.2 Behcet's disease; Q79.60 Ehlers-Danlos syndrome, unspecified | CPT/HCPCS: 99212 ==

== ENCOUNTER 2024-09-25 09:08 | Outpatient (AMB) | payer OTHER, SELFPAY ==
--- NOTE | 2024-09-25 09:15 | MHC.OFFVIS ---
Vital Signs 09/25/24 09:21 BP 90/50 L Blood Pressure Location Rt brachial Position Sitting Pulse 63 Pulse Source Pulse Oximeter Pulse Oximetry (%) 100 Oxygen Delivery Method Room Air Intake Visit Reasons: 3 months Intake Note: PT presents today for a follow up for Bechet's disease. Accompanied by: Self / Same As Patient Allergies hydroxychloroquine (From Plaquenil) Allergy (Intermediate, Verified 09/25/24 09:21) Vomiting leflunomide Allergy (Intermediate, Verified 09/25/24 09:21) Diarrhea adhesive tape Allergy (Unknown, Verified 09/25/24 09:21) Unknown erythromycin base (ERYTHROMYCIN BASE) Allergy (Unknown, Verified 09/25/24 09:21) UNKNOWN latex (LATEX) Allergy (Unknown, Verified 09/25/24 09:21) UNKNOWN acetaminophen (From Tylenol) Adverse Reaction (Unknown, Verified 09/25/24 09:21) elevates LFT's Medication List - Last Reconciled 09/25/24 by Rhys Turcios MD apremilast (Otezla) 30 mg PO BID atogepant (Qulipta) 30 mg PO DAILY cephalexin 500 mg PO BID 7 days colchicine 0.6 mg PO BID 30 days dextroamphetamine-amphetamine 10 mg ER (Adderall XR) 1 cap PO QAM dextroamphetamine-amphetamine 20 mg 1 tab PO BID diazepam 5 mg PO TID PRN dicyclomine 20 mg (2 x 10 mg) PO BID PRN 90 days duloxetine 60 mg PO DAILY duloxetine 30 mg PO DAILY epinephrine (EpiPen) 0.3 mg (0.3 mL) IM Q10M PRN famotidine 20 mg PO BID gabapentin 300 mg PO TID glucosamine-chondroitin 250-200 mg (Osteo Bi-Flex) 2 tabs PO BID leg brace (Knee Support Brace) wear as directed. Bilateral knee hinged brace with patella stabilization. Dx: Kings-Danlos Syndrome lidocaine 5% 1 appl topical BID PRN lidocaine HCl 2% 1 appl topical BID-TID PRN Magic Mouthwash Diphen/Lido/Antacid 1:1:1 240 mL orally; Lidocaine Viscous 2 % 80mL; diphenhydramine 12.5 mg/5 mL 80mL; aluminum-mag hydrox-simeth 466bd-[id number]-45kw/5mL 80mL Swish, gargle and split 5 mL every 4-6 hours as needed. metoclopramide HCl 5 mg PO TID PRN minoxidil 1.25 mg PO BEDTIME mupirocin 2% 1 appl topical BID PRN nabumetone 500 mg PO BID 30 days ondansetron 4 mg PO BID PRN oxycodone 10 mg PO Q8H oxycodone 5 mg PO Q6H PRN 7 days prednisolone acetate 1% 1 drp ophthalmic (eye) DAILY prucalopride (Motegrity) 1 mg PO DAILY 90 days Shower Chair As directed tizanidine 4 mg PO Q8H PRN [transfer bench As directed] ubrogepant (Ubrelvy) 50 mg PO ONCE PRN walker (Ultra-Light Rollator misc) As directed [wheelchair As directed] HPI HPI 3 months: Details: She has self decreased gabapentin from 900 mg t.i.d. to 600 mg b.i.d. to t.i.d. depending on the day because she felt judged when she told different providers that she was on gabapentin. They gave her feedback that she was on too high a dose and she felt bad. She has been experiencing increased numbness and pain. Hands are swollen. She had difficulty getting her rings off this morning. She is participating in physical therapy. Oral ulcers have increased in her mouth in the last week. She is on colchicine 1.2 mg b.i.d. for the last week with a little bit of benefit. [facility] Medical History Acid reflux Gastritis Neuropathy Weakness Cough Melanoma Chronic migraine with aura Kings-Danlos disease Migraine Asthma Behcet disease with multisystem involvement TMJ (temporomandibular joint syndrome) Other specified disorders of bladder 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] Personal history of malignant melanoma of skin Muscle spasm of back Chronic pain syndrome Generalized anxiety disorder Major depressive disorder, single episode, in full remission Surgical History Hx of cystoscopy History of facial surgery H/O colonoscopy Hx of local excision of skin lesion History of esophagogastroduodenoscopy (EGD) H/O right wrist surgery Hx laparoscopic cholecystectomy (10/22/23) Hx of tonsillectomy History of appendectomy Social History Household Members: Spouse and Family Housing: House Are you a primary college and career counselor to a significant other at home: No Do you presently have visiting nurse or other home services: No Alcohol intake: current Alcohol intake frequency: does not drink Patient Tobacco Use Status: Former Tobacco user Tobacco use type: Cigarette e-Cigarette/Vaping Use: Currently Using Second Hand Smoke Exposure: Yes Substance Use Type: Marijuana Advance Directives Date on File: 10/29/23 service: No Current occupational status: disabled Cognitive needs: Yes (Wheelchair, Walker, Cane) Hearing needs: No Vision needs: Yes (Glasses) Female Reproductive History Menstrual Age of Menarche: 10 Physical Exam Vital Signs: Last Vital Signs Pulse 63 09/25/24 09:21 BP 90/50 L 09/25/24 09:21 Pulse Ox 100 09/25/24 09:21 Oxygen Delivery Method Room Air 09/25/24 09:21 Const Other: General: Comfortable CVS: RRR Respiratory: clear to auscultation bilaterally. Good respiratory effort Skin: Bruising on bilateral patella Oral: She has multiple aphthous ulcers MSK: Tender to palpate bilateral wrists, elbows, shoulders, knees, ankles, right 2nd and 3rd MCP, right IP, left PIPs without synovitis. She has synovitis of right 2nd, 3rd, 4th PIPs. Normal range of motion of upper extremity. Patient is examined in wheelchair. Range of motion of lower extremities was not examined. Diffuse allodynia of extremities and back. She has tenderness to palpate cervical spinous process, paraspinal muscles and mid back. She has limited extension, flexion and rotation of her cervical spine. Results Reviewed Results Reviewed: MRI left knee August 20/2025 IMPRESSION: 1. Tear of the origin of the gastrocnemius tendon with surrounding soft tissue edema and adjacent bone marrow edema. 2. Tiny cartilage fissure involving the medial patellar facet. 3. Edema of Hoffa's fat pad and of the subcutaneous fat anterior to the patellar tendon. 07/20/2024 MR/MR knee RT wo/w con IMPRESSION: There is an oblique tear (meniscal cyst involving posterior horn the medial meniscus that probably extends to the undersurface, but this extends to the peripheral margin. There is an oblique tear of the anterior horn of the lateral meniscus that extends to the undersurface. Patellar tendon-lateral femoral condyle friction syndrome: There is edema like signal in the superior lateral fat of Hoffa. There is a small shallow fissure in the articular cartilage involving the medial retropatellar, at the junction of mid third upper third patella. Assessment & Plan Assessment & Plan (1) Behcet disease with multisystem involvement: Comment: Oral ulcers are not controlled on her current regimen. She has developed chronic inflammatory arthritis with synovitis of right PIPs. We discussed next steps of treatment with TNF inhibitor. Discuss side effects, benefits and drug monitoring. She prefers infusion over subcutaneous injection. Neurology evaluation 08/2024 reviewed. MRI brain reviewed. She is being worked up for neuropathy with EMGs of lower extremities. She has had benefit on gabapentin 900 mg t.i.d. but self decrease to 600 mg b.i.d. to t.i.d. due to concern that gabapentin may be contributing to her short-term memory loss and brain fog. By doing so it has increased her pain from neuropathy and fibromyalgia. 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 Partial control with colchicine 0.6mg BID for oral ulcers with side effect of diarrhea (when she discontinued it, ulcers increased). Otezla 02/2024-controls oral ulcers and cutaneous disease. Low-dose prednisone causes agitation. No benefit in controlling joint pain with methylprednisolone. Cortisone injections to bilateral knees from pain management PSSP caused increased pain. MTX caused diarrhea. She has MTHFR mutation. 4 days on Leflunomide caused headache, nausea, dizziness, abdominal pain and hair loss. She has history of dry eyes (SSA/SSB negative) treated with prednisolone topical, punctate plugs by Dr. Michel. She did not tolerate hydroxychloroquine due to vomiting started by Ophthalmology for dry eye syndrome. She saw Dr. Luther Villavicencio Opthalmologist 03/14/2024 who did not see any clinical signs of systemic inflammation in her eyes. She has history of Raynaud's syndrome and benign hypermobility syndrome. History of uterine and rectal prolapse. She was referred to Genetics at [facility] but no showed to appointment as patient did not have a ride. Neurological evaluation with imaging and EMGs have not revealed neurological involvement of Behcet's syndrome. She has had bilateral upper and R lower extremity EMG is that revealed bilateral carpal tunnel syndrome (03/2023 [facility] note), EMGs bilateral lower extremities [facility] 11/02/2023 normal, CT brain December 2022 and MRI C to T-spine 08/22/2022, MRI L-spine January 2021 has been negative. MRI brain May 2023 ordered by neurologist at [facility] was negative. Code(s): M35.2 - Behcet's disease Category: Medical Plan: Continue Otezla 30 mg daily Continue colchicine 1.2 mg b.i.d. during flares of ocular and skin ulcers then resume back to maintenance dose of 0.6 mg b.i.d. when flare resolves. Continue nabumetone 500 mg b.i.d. with food Labs for drug monitoring ordered Infliximab 3 milligram/kilogram PA with induction at weeks 0, 2, 6 then maintenance every 8 weeks. When approved, infliximab will replace Otezla. Return to clinic in 3 months Requesting clinic note from follow up with Ophthalmology in [place] Dr. Tripp 08/08/2024 for episode of blurry vision and red eyes. She has an appointment with pain management at the end of the month. She will discuss changing gabapentin to Lyrica for control of neuropathy and fibromyalgia due to side effect of memory loss and brain fog since starting gabapentin. Continue to follow up with Dr. Ashlyn Abraham at [facility] for pain management who was prescribing oxycodone. Patient is currently participating in physical therapy for lower extremity strengthening at [facility]. Nuclear bone scan report requested from 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 Intra-articular cortisone injection caused increased pain. MRI bilateral knees with and without contrast did not reveal inflammatory arthritis. She has right knee medial and lateral meniscal tear. She has left knee tear of the origin of the gastrocnemius tendon. She does not have significant arthritis on imaging to contribute to her pain. Benign hypermobility syndrome is contributing to instability of her knees. Caution is advised with consideration of surgery due to the increased laxity of her tendons. She has an appointment with Orthopedic surgery today and will discuss surgical options. I recommended that she seek opinion of orthopedic surgeon who is experienced with performing surgery on patients with benign hypermobility syndrome. Code(s): M25.561 - Pain in right knee; M25.562 - Pain in left knee Category: Medical Qualifiers: Chronicity: chronic Qualified Code(s): M25.561 - Pain in right knee; M25.562 - Pain in left knee; G89.29 - Other chronic pain Plan: Follow up with orthopedic surgery (4) Back pain: Comment: Predominantly affecting mid back. She has myofascial strain contributing to neck pain. Prior imaging with nuclear bone scan has revealed degenerative changes affecting T-spine. Temporary relief with using heating pad but it has caused erythema ab igne. Failed multiple muscle relaxers, acetaminophen, Tylenol, cortisone injection. Cortisone injection caused increased pain. She is seeing pain management and is considering spinal stimulator. Code(s): M54.9 - Dorsalgia, unspecified Category: Medical Plan: I have ordered imaging of her spine to evaluate for axial inflammatory arthritis Nuclear bone scan requested from [facility] x3 request Follow up with pain management for consideration of spinal stimulator. She will also discuss with pain management switching gabapentin to Lyrica for better control of fibromyalgia and neuropathy as she has been experiencing memory loss and brain fog since being on gabapentin. (5) Cervicalgia: Comment: Limited cervical range of motion. She has myofascial strain from paraspinal muscles contributing to her pain. 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 therapy C Reactive Protein Today Z79.899 - Other m[facility] (current) drug therapy Erythrocyte Sedimentation Rate Today Z79.899 - 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 (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) drug therapy XR lumbar spine 2-3V Today M19.90 - Unspecified osteoarthritis, unspecified site, M35.2 - Behcet's disease XR thoracic spine 3V Today M19.90 - Unspecified osteoarthritis, unspecified site, M35.2 - Behcet's disease Aspartate Amino Transferase Today Z79.899 - 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
[2024-09-25 09:21] VITALS: BP 90/50; PULSE 63; O2SAT 100
--- OUTSIDE RECORDS SUMMARY | 2024-09-25 09:35 | XMS_ITS | Clinical Summary ---
Author Organization [facility] Address [address] [place] [address] Care Team Providers Care Corn Lab Technician Name Role Phone Ana Cortez Primary Care Provider [phone] Allergies Active Allergy Reactions Criticality Noted Date [...] Plan: Will be scheduled with [facility] GI. Saw Dr. Reyes [...] - PCV) 01/07/2008 COVID-19 Vaccine ( - ) 10/14/2023 Alcohol/Substance Use Screening 02/13/2024 Depression Screening and Follow-Up 02/13/2024 Social Drivers of Health Annual Screening 02/13/2024 Influenza Vaccine (#1) 2024 DTaP,Tdap,and Td Vaccines (2 - Td or Tdap) 10/12/2025 10/13/2015 RSV Vaccine (60+ years old a nd patients) (1 - 1-dose 75+ series) 01/07/2064 Insurance [employer] Care Teams Corn Lab Technician Relationship Specialty Start Date End Date Ana Cortez [address] [place] [address] PCP - General 04/10/23
--- OUTSIDE RECORDS SUMMARY | 2024-09-25 09:36 | XMS_ITS | Clinical Summary ---
Author Organization [facility] Address [address] [place] [address] Care Team Providers Care Pediatric Cardiologist Name Role Phone Ana Cortez NP Primary Care Provider [phone] Allergies Active Allergy Reactions Criticality Noted Date [...] age to complete this topic Care Teams Pediatric Cardiologist Relationship Specialty Start Date End Date Ana Cortez NP [address] [address] PCP - General Family Medicine 09/21/22
--- OUTSIDE RECORDS SUMMARY | 2024-09-25 09:36 | XMS_ITS | Clinical Summary ---
Author Organization [address] Address [address] [place] [address] [place] [address] Phone Care Team Providers Care Balance Engineer Name Role Phone Jo Ann Hebert Primary Care Provider [phone] Allergies Active Allergy Reactions Criticality Noted Date [...] with BMI of 4 0.0-44.9, adult ([facility] V24, [facility] V28) 11/23/2023 Allergic conjunctivitis of both eyes 06/19/2019 Perennial allergic rhinitis 06/19/2019 Arthralgia 04/09/2019 Lower abdominal pain 04/09/2019 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, [facility]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 Melanoma in situ ([facility] V24, [facility] V28) 0703/2018 Nevus 08/12/2018 Insulin controlled [...] Team Description 08/29/2024 Telephone General Surgery - [place] [address] [place] [address] Arturo Albarran DO procedure letter (08/29/2024 mailed letter) 08/27/2024 11:00 AM EDT Consult Plastic & Reconstructive Surgery - [place] [address] [place] [address] [place] Abdominal pannus [...] APPENDECTOMY PROCEDURE: HISTORICAL APPENDECTOMY ESOPHAGOGASTRODUODENOSCOPY 03/29/15 PROCEDURE: WI EGD TRANSORAL BIOPSY SINGLE/MULTIPLE; COMMENT: mild distal [...] EDT Procedure visit Plastic & Reconstructive Surgery [facility] [address] [phone] Arturo Albarran DO [address] [address] 10/17/2024 1:00 PM EDT Office Visit Plastic & Reconstructive Surgery [facility] [address] [phone] [place] [address] [address] 12/09/2024 1:00 PM EDT Appointment [facility] [address] [place] [phone] Scheduled Procedures Name Priority Associated Diagnoses Date/Ti [...] RESULTING AGENCY - 06/20/2017 4:55 PM EDT [id number] THINPREP PAP, IMAGED AND CELL BLOCK: NEGATIVE [...] Recently Relevant to Health Maintenance Insurance [facility] MEDICAID - [place] Care Teams Balance Engineer Relationship Specialty Start Date End Date Jo Ann Hebert PA [address] [place] [address], [address] [place] [address] PCP - General 08/25/24
--- OUTSIDE RECORDS SUMMARY | 2024-09-25 09:36 | XMS_ITS | Encounter Summary ---
Author Organization [facility] Address [facility] [employer] [address] [place] [address] Phone Care Team Providers Care Blackjack Supervisor Name Role Phone Pcp, Unknown Primary Care Provider Unavailabl e Encounter Details Date Type Department Care Team (Late st Contact Info) Description 04/12/2023 Procedure Pass [facility], Ct Scan - [address] [address] Social History Tobacco Use Types Packs/Day Years [...] 04/12/2023 9:23 PM Lucille Shah RN * [place] Suicide Severity Rating Scale (Screener/Recent Self-Report) Question [...] documented as of this encounter Care Teams Blackjack Supervisor Relationship Specialty Start Date End Date Pcp, Unknown PCP - General 04/12/23 documented as of this encounter Additional Source Comments The information contained in this document represents components of the legal health record. It is not the complete legal health record.[facility]
== END 2024-09-25 09:56 | disposition home or self-care (01) ==
LOC: HO.RHES 09:11
PROVIDERS: Visit Provider Internal Medicine Rheumatology
DX: M35.2 Behcet's disease (principal); Z79.899 Other long term (current) drug therapy; M25.561 Pain in right knee; M25.562 Pain in left knee; G89.29 Other chronic pain; M54.9 Dorsalgia, unspecified; M54.2 Cervicalgia
CPT/HCPCS: 99215

== ENCOUNTER → 2024-09-25 09:08 | Outpatient (BNVA) | payer OTHER, SELFPAY | PROVIDERS: Visit Provider Internal Medicine Rheumatology | DX: S83.206A Unspecified tear of unspecified meniscus, current injury, right knee, initial encounter (principal); M25.561 Pain in right knee; Q79.60 Ehlers-Danlos syndrome, unspecified | CPT/HCPCS: 99212 ==

== ENCOUNTER 2024-09-25 15:03 | Outpatient (AMB) | payer OTHER, SELFPAY ==
--- NOTE | 2024-09-25 15:04 | A.OFFVIS_ITS ---
Vital Signs 09/25/24 15:10 BP 116/59 L Blood Pressure Location Rt brachial Position Sitting Pulse 67 Intake Visit Reasons: Pre-Rt Knee 10/01/24 NE Intake Note: Marie is a 34 year old female who presents today for a pre operative visit for a scheduled right knee done by Dr Mahendra Gay DOS: 10/01/24. Pain management forms completed and signed. Patient stated that she called on 09/22 stating that she had a fall and landed on her right knee/leg. Allergies hydroxychloroquine (From Plaquenil) Allergy (Intermediate, Verified 09/25/24 09:21) Vomiting leflunomide Allergy (Intermediate, Verified 09/25/24 09:21) Diarrhea adhesive tape Allergy (Unknown, Verified 09/25/24 09:21) Unknown erythromycin base (ERYTHROMYCIN BASE) Allergy (Unknown, Verified 09/25/24 09:21) UNKNOWN latex (LATEX) Allergy (Unknown, Verified 09/25/24 09:21) UNKNOWN acetaminophen (From Tylenol) Adverse Reaction (Unknown, Verified 09/25/24 09:21) elevates LFT's HPI HPI Pre-Rt Knee 10/01/24 NE: Details: The patient is a 34 y/o female presenting with a long history of right knee pain, swelling, and mechanical symptoms such as clicking, locking, catching. Of note patient does have a past medical history significant for EDS and reports that this syndrome causes her hips and knees to sublux and dislocate regularly. She reports that she was performing squat exercises roughly 3 months ago and she felt severe pain. Ever since then she has been having difficulty with ambulation, weight-bearing, pivoting or twisting. Patient also reports roughly 2 weeks ago she sustained a 2nd fall and since then her his pain has been significantly worse and she is unable to pivot at all. Pain is localized to the medial aspect of the knee, worsened with twisting, squatting, or prolonged activity. Conservative measures?including rest, activity modification, NSAIDs, bracing, and physical therapy?have failed to provide adequate relief. Consideration for surgical intervention in the setting of EDS for this patient has been made with careful consideration. Surgery for a right knee arthroscopy is so that the patient is able to have less pain and able to progress with her physical therapy for EDS. MRI of the right knee obtained on 07/20/2024: There is an oblique tear (meniscal cyst involving posterior horn the medial meniscus that probably extends to the undersurface, but this extends to the peripheral margin. There is an oblique tear of the anterior horn of the lateral meniscus that extends to the undersurface. Patellar tendon-lateral femoral condyle friction syndrome: There is edema like signal in the superior lateral fat of Hoffa. There is a small shallow fissure in the articular cartilage involving the medial retropatellar, at the junction of mid third upper third patella. [facility] Medical History Acid reflux Gastritis Neuropathy Weakness Cough Melanoma Chronic migraine with aura Kings-Danlos disease Migraine Asthma Behcet disease with multisystem involvement TMJ (temporomandibular joint syndrome) Other specified disorders of bladder 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] Personal history of malignant melanoma of skin Muscle spasm of back Chronic pain syndrome Generalized anxiety disorder Major depressive disorder, single episode, in full remission Surgical History Hx of cystoscopy History of facial surgery H/O colonoscopy Hx of local excision of skin lesion History of esophagogastroduodenoscopy (EGD) H/O right wrist surgery Hx laparoscopic cholecystectomy (10/22/23) Hx of tonsillectomy History of appendectomy Social History Household Members: Spouse and Family Housing: House Are you a primary care rep to a significant other at home: No Do you presently have visiting nurse or other home services: No Alcohol intake: current Alcohol intake frequency: does not drink Patient Tobacco Use Status: Former Tobacco user Tobacco use type: Cigarette e-Cigarette/Vaping Use: Currently Using Second Hand Smoke Exposure: Yes Substance Use Type: Marijuana Advance Directives Date on File: 10/29/23 service: No Current occupational status: disabled Cognitive needs: Yes (Wheelchair, Walker, Cane) Hearing needs: No Vision needs: Yes (Glasses) Female Reproductive History Menstrual Age of Menarche: 10 Review of Systems Const All systems reviewed & are unremarkable except as noted in HPI and below Physical Exam Vital Signs: Last Vital Signs Pulse 67 09/25/24 15:10 BP 116/59 L 09/25/24 15:10 Const General: cooperative and no acute distress Orientation/consciousness: patient oriented x3 Resp Effort & Inspection: normal respiratory effort and able to speak in complete sentences Cardio Peripheral pulses: Peripheral pulses 2+ throughout Neuro General: patient oriented x3 Extrem Other: Right knee normal to inspection with hypermobile patella. Tenderness over the m edial joint line. Full ROM. Extreme pain to the medial side with Isaiah's. Calf supple nontender. NVI. Assessment & Plan Assessment & Plan (1) Tear of meniscus of right knee as current injury: Code(s): S83.206A - Unspecified tear of unspecified meniscus, current injury, right knee, initial encounter Category: Medical Plan The risks, benefits, and alternatives were discussed in detail with the patient. Risks include but are not limited to: bleeding, infection, blood clots (DVT/PE), stiffness, persistent pain, nerve/vessel injury, anesthesia risks, recurrence of symptoms, and need for further surgery. Benefits: pain relief, improved function, removal/repair of torn cartilage, improved mobility. Alternatives: continued non-operative management (physical therapy, medications, injections). Dr. Gay was available to meet the patient in the office today. He discussed the goals and expectations of surgery the patient. The patient had ample opportunity to ask questions. All questions were answered to the patient's satisfaction. 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 Therefore, Keflex 500 mg p.o. b.i.d. for 7 days was sent to the [facility] pharmacy for delivery to the PACU after surgery. Additionally, oxycodone 5 mg p.o. Q 6 hours p.r.n. pain was also sent to the [facility] pharmacy to ensure delivery to the PACU on the date of surgery. Follow up will be on 10/07/2024 at 02:45 with myslef, sooner if needed. Medications: New cephalexin Pharmacy to please bring to PACU on date of surgery 10/01/2024 500 mg PO BID 14 caps 0RF 7 days oxycodone Partial Fill upon patient request. Pharmacy to please bring to PACU on date of surgery 10/01/2024 5 mg PO Q6H PRN 42 tabs 0RF pain 7 days Coding Level of Care Code Global (68325) Diagnoses Tear of meniscus of right knee as current injury S83.206A
[2024-09-25 15:10] VITALS: BP 116/59; PULSE 67
== END 2024-09-25 15:35 | disposition home or self-care (01) ==
LOC: HO.HOS 15:03
PROVIDERS: Visit Provider Physician Assistant
DX: S83.206A Unspecified tear of unspecified meniscus, current injury, right knee, initial encounter (principal)
CPT/HCPCS: 99024

== ENCOUNTER 2024-09-26 10:05 | Outpatient (REF) | payer OTHER, SELFPAY ==
--- NOTE | ~2024-09-26 | XR_ITS ---
EXAMINATION: XR THORACIC SPINE CLINICAL INFORMATION: M35.2 - Behcet's disease COMPARISON: February 28, 2010 TECHNIQUE: AP and lateral views FINDINGS: S-shaped curvature of the thoracic spine with a dextroconvex curvature apex at T5-6 and levoconvex curvature apex at T10-11. Superior endplate compression deformity representing 20% volume loss at T10, and T11. No gross malalignment. No lytic or blastic lesions. Vascular clips right upper quadrant abdomen likely prior laparoscopic cholecystectomy. XR/XR thoracic spine 2V IMPRESSION: Scoliosis, mild to moderate. Subacute to old superior endplate compression deformities, T10 and T11. Electronically signed by: Kevin Saeed MD 09/26/2024 10:47 AM EDT
--- NOTE | ~2024-09-26 | XR_ITS ---
EXAMINATION: XR LUMBOSACRAL SPINE CLINICAL INFORMATION: M35.2 - Behcet's disease COMPARISON: February 28, 2010. Prior CT lumbar spine dated December 15, 2023 reported a nondisplaced coccygeal fracture. TECHNIQUE: AP and lateral views FINDINGS: Small marginal osteophyte formation throughout the vertebral bodies of the lower thoracic and upper lumbar spine. Facet joint hypertrophy at L5-S1. No acute cortical disruption or gross malalignment. No lytic or blastic lesions. Vascular clips right upper quadrant abdomen and likely prior laparoscopic cholecystectomy.. XR/XR lumbar spine 2-3V IMPRESSION: Mild multilevel lower thoracic and lumbar spondylosis. Electronically signed by: Kevin Saeed MD 09/26/2024 11:03 AM EDT
--- NOTE | ~2024-09-26 | XR_ITS ---
EXAMINATION: XR SACROILIAC JOINTS CLINICAL INFORMATION: M35.2 - Behcet's disease COMPARISON: Correlated to CT abdomen pelvis dated March 25, 2024. TECHNIQUE: AP and oblique views of the sacroiliac joints FINDINGS: No acute cortical disruption. No gross lytic or blastic lesions. XR/XR sacroiliac joint min 3V IMPRESSION: No acute fracture. No gross sacroiliitis. Electronically signed by: Kevin Saeed MD 09/26/2024 10:50 AM EDT
--- NOTE | ~2024-09-26 | XR_ITS ---
EXAMINATION: XR CERVICAL SPINE CLINICAL INFORMATION: M35.2 - Behcet's disease COMPARISON: Correlated to MRI cervical spine dated December 19, 2023. TECHNIQUE: AP and lateral views FINDINGS: Craniocervical junction is intact. Grade 1 retrolisthesis C4-5 and C5-6 level. No acute cortical disruption. No lytic or blastic lesions. Facet joint hypertrophy at C5-6 and incomplete fusion of the facet joints at C2-3. S-shaped curvature of the cervical spine which could be related to positioning. Upper airway is patent. XR/XR cervical spine 2V IMPRESSION: Grade 1 retrolisthesis C4-5 and C5-6. Spondylosis C5-6. Electronically signed by: Kevin Saeed MD 09/26/2024 11:01 AM EDT
--- OUTSIDE RECORDS SUMMARY | 2024-09-26 10:17 | XMS_ITS | Clinical Summary ---
Author Organization [facility] Address [address] [place] [address] Care Team Providers Care Lineman Service Or Work Dispatcher Name Role Phone Ana Cortez Primary Care Provider [phone] Allergies Active Allergy Reactions Criticality Noted Date [...] Will be scheduled with [facility]. Saw Dr. Reyes who recommended work [...] Insurance [employer] Care Teams Lineman Service Or Work Dispatcher Relationship Specialty Start Date End Date Ana Cortez [address] [place] [address] PCP - General 04/10/23
--- OUTSIDE RECORDS SUMMARY | 2024-09-26 10:17 | XMS_ITS | Encounter Summary ---
Author Organization [facility] Address [facility] [employer] [address] [place] [address] Phone Care Team Providers Care Cream Tester Name Role Phone Pcp, Unknown Primary Care Provider Unavailabl e Encounter Details Date Type Department Care Team (Late st Contact Info) Description 04/12/2023 Procedure Pass [facility], Ct Scan - [address] [address] Social History Tobacco Use Types Packs/Day Years [...] 04/12/2023 9:23 PM Lucille Shah RN * [place] Suicide Severity Rating Scale (Screener/Recent Self-Report) Question [...] documented as of this encounter Care Teams Cream Tester Relationship Specialty Start Date End Date Pcp, Unknown PCP - General 04/12/23 documented as of this encounter Additional Source Comments The information contained in this document represents components of the legal health record. It is not the complete legal health record.[facility]
--- OUTSIDE RECORDS SUMMARY | 2024-09-26 10:17 | XMS_ITS | Clinical Summary ---
Author Organization [address] Address [address] [place] [address] [place] [address] Phone Care Team Providers Care Dry Ice Maker Name Role Phone Jo Ann Hebert Primary Care Provider [phone] Allergies Active Allergy Reactions Criticality Noted Date [...] obesity with BMI of 4 0.0-44.9, adult ([facility] V24, [facility] V28) 11/23/2023 Allergic conjunctivitis of both eyes 06/19/2019 Perennial allergic rhinitis 06/19/2019 Arthralgia 04/09/2019 Lower abdominal pain 04/09/2019 IgA deficiency ([facility] V24, [facility]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 Melanoma in situ ([facility] V24, [facility] V28) 0703/2018 Nevus 08/12/2018 Insulin controlled gestation [...] Team Description 08/29/2024 Telephone General Surgery - [place] [address] [place] [address] Arturo Albarran DO procedure letter (08/29/2024 mailed letter) 08/27/2024 11:00 AM EDT Consult Plastic & Reconstructive Surgery - [place] [address] [place] [address] [place] Abdominal pannus [...] EDT Procedure visit Plastic & Reconstructive Surgery [facility] [address] [phone] Arturo Albarran DO [address] [address] 10/17/2024 1:00 PM EDT Office Visit Plastic & Reconstructive Surgery [facility] [address] [phone] [place] [address] [address] 12/09/2024 1:00 PM EDT Appointment [facility] [address] [place] [phone] Scheduled Procedures Name Priority Associated Diagnoses Date/Ti [...] RESULTING AGENCY - 06/20/2017 4:55 PM EDT [id number] THINPREP PAP, IMAGED AND CELL BLOCK: NEGATIVE [...] Most Recently Relevant to Health Maintenance Insurance [facility] [employer] MEDICAID - [place] Care Teams Dry Ice Maker Relationship Specialty Start Date End Date Jo Ann Hebert PA [address] [place] [address], [address] [place] [address] PCP - General 08/25/24
--- OUTSIDE RECORDS SUMMARY | 2024-09-26 10:17 | XMS_ITS | Clinical Summary ---
Author Organization [facility] Address [address] [place] [address] Care Team Providers Care Surgical Supervisor Name Role Phone Ana Cortez NP Primary Care Provider [phone] Allergies Active Allergy Reactions Criticality Noted Date [...] age to complete this topic Care Teams Surgical Supervisor Relationship Specialty Start Date End Date Ana Cortez NP [address] [address] PCP - General Family Medicine 09/21/22
[2024-09-26 13:22] LABS: MANUAL DIFF FLAG NO
[2024-09-26 13:48] LABS: Hematocrit 35.6 % (37.0-47.0); Hemoglobin 11.8 g/dl (12.0-16.0); Imm Gran Abs Auto 0.02 X10*3/uL (0.00-0.03); Imm Gran Pct Auto 0.3 % (0.0-0.4); Lymphocytes Absolute Auto 1.7 X10*3/uL (1.2-4.9); Mean Corpuscular HGB Conc 33.1 g/dl (31.0-35.0); Mean Corpuscular Hemoglobin 28.4 pg (27.0-33.0); Mean Corpuscular Volume 85.8 fL (80.0-98.0); NRBC Abs Auto 0.000 X10*3/uL (0.0-0.012); NRBC Pct Auto 0.0 /100WBC (0.0-0.2); Platelet Count 205 X10*3/uL (160-400); Red Blood Count 4.15 X10*6/uL (4.20-5.50); White Blood Count 5.9 X10*3/uL (4.8-10.8)
[2024-09-26 14:12] LABS: Alanine Aminotransferase 13 U/L (0-31); Aspartate Amino Transferase 19 U/L (5-31); Estimated Glomerular Filt Rate > 60
== END 2024-09-26 10:06 | disposition home or self-care (01) ==
LOC: HO.HMGCX 10:05
PROVIDERS: Visit Provider Internal Medicine Rheumatology
DX: M35.2 Behcet's disease (principal); M19.90 Unspecified osteoarthritis, unspecified site; Z79.899 Other long term (current) drug therapy
CPT/HCPCS: 36415; 51798; 72040; 72070; 72100; 72202; 82565; 84450; 84460; 85025; 85652; 86140

== ENCOUNTER → 2024-09-26 10:13 | Outpatient (BNV) | payer OTHER, SELFPAY | PROVIDERS: Visit Provider Radiology Diagnostic Radiology | DX: M35.2 Behcet's disease (principal); M47.812 Spondylosis without myelopathy or radiculopathy, cervical region; M41.34 Thoracogenic scoliosis, thoracic region | CPT/HCPCS: 72040; 72070; 72100; 72202 ==

== ENCOUNTER 2024-10-02 09:40 | Outpatient (AMB) | payer OTHER, SELFPAY ==
--- NOTE | 2024-10-02 09:43 | A.OFFVIS_ITS ---
Vital Signs 10/02/24 09:48 Height 5 ft 3 in Weight 140 lb BMI 24.8 Intake Visit Reasons: OV: brace fitting/referral discussion Intake Note: Marie is a 34 year old female who presents today for a follow up of right knee to discuss referral and knee bracing. Patient reports having a fall today. She also states her pain becomes so bad that it brings tears to her eyes. Allergies hydroxychloroquine (From Plaquenil) Allergy (Intermediate, Verified 10/02/24 09:48) Vomiting leflunomide Allergy (Intermediate, Verified 10/02/24 09:48) Diarrhea adhesive tape Allergy (Unknown, Verified 10/02/24 09:48) Unknown erythromycin base (ERYTHROMYCIN BASE) Allergy (Unknown, Verified 10/02/24 09:48) UNKNOWN latex (LATEX) Allergy (Unknown, Verified 10/02/24 09:48) UNKNOWN acetaminophen (From Tylenol) Adverse Reaction (Unknown, Verified 10/02/24 09:48) elevates LFT's Medication List - Last Reconciled 10/02/24 by Fredy Vogel PA-C [AFO As directed] apremilast (Otezla) 30 mg PO BID atogepant (Qulipta) 30 mg PO DAILY colchicine 0.6 mg PO BID 30 days dextroamphetamine-amphetamine 10 mg ER (Adderall XR) 1 cap PO QAM dextroamphetamine-amphetamine 20 mg 1 tab PO BID diazepam 5 mg PO TID PRN dicyclomine 20 mg (2 x 10 mg) PO BID PRN 90 days duloxetine 60 mg PO DAILY duloxetine 30 mg PO DAILY epinephrine (EpiPen) 0.3 mg (0.3 mL) IM Q10M PRN famotidine 20 mg PO BID gabapentin 300 mg PO TID glucosamine-chondroitin 250-200 mg (Osteo Bi-Flex) 2 tabs PO BID leg brace (Knee Support Brace) wear as directed. Bilateral knee hinged brace with patella stabilization. Dx: Kings-Danlos Syndrome lidocaine 5% 1 appl topical BID PRN lidocaine HCl 2% 1 appl topical BID-TID PRN Magic Mouthwash Diphen/Lido/Antacid 1:1:1 240 mL orally; Lidocaine Viscous 2 % 80mL; diphenhydramine 12.5 mg/5 mL 80mL; aluminum-mag hydrox-simeth [id number]/5mL 80mL Swish, gargle and split 5 mL every 4-6 hours as needed. metoclopramide HCl 5 mg PO TID PRN minoxidil 1.25 mg PO BEDTIME mupirocin 2% 1 appl topical BID PRN nabumetone 500 mg PO BID 30 days ondansetron 4 mg PO BID PRN oxycodone 10 mg PO Q8H oxycodone 5 mg PO Q6H PRN 7 days prednisolone acetate 1% 1 drp ophthalmic (eye) DAILY prucalopride (Motegrity) 1 mg PO DAILY 90 days Shower Chair As directed tizanidine 4 mg PO Q8H PRN [transfer bench As directed] ubrogepant (Ubrelvy) 50 mg PO ONCE PRN walker (Ultra-Light Rollator misc) As directed [wheelchair As directed] HPI HPI OV: brace fitting/referral discussion: Details: 34-year-old female presents to the office today for a follow-up bilateral knee pain. She was recently booked for knee arthroscopy which was then canceled by Dr. Gay with concerns the risks far outweigh the benefit of proceeding with surgery. The patient has been quite frustrated by this decision given her ongoing pain and limitations with daily activities given her EDS. [facility] Medical History Acid reflux Gastritis Neuropathy Weakness Cough Melanoma Chronic migraine with aura Kings-Danlos disease Migraine Asthma Behcet disease with multisystem involvement TMJ (temporomandibular joint syndrome) Other specified disorders of bladder 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] Personal history of malignant melanoma of skin Muscle spasm of back Chronic pain syndrome Generalized anxiety disorder Major depressive disorder, single episode, in full remission Surgical History Hx of cystoscopy History of facial surgery H/O colonoscopy Hx of local excision of skin lesion History of esophagogastroduodenoscopy (EGD) H/O right wrist surgery Hx laparoscopic cholecystectomy (10/22/23) Hx of tonsillectomy History of appendectomy Social History Household Members: Spouse and Family Housing: House Are you a primary care management coordinator to a significant other at home: No Do you presently have visiting nurse or other home services: No Alcohol intake: current Alcohol intake frequency: does not drink Patient Tobacco Use Status: Former Tobacco user Tobacco use type: Cigarette e-Cigarette/Vaping Use: Currently Using Second Hand Smoke Exposure: Yes Substance Use Type: Marijuana Advance Directives Date on File: 10/29/23 service: No Current occupational status: disabled Cognitive needs: Yes (Wheelchair, Walker, Cane) Hearing needs: No Vision needs: Yes (Glasses) Female Reproductive History Menstrual Age of Menarche: 10 Review of Systems Const All systems reviewed & are unremarkable except as noted in HPI and below Physical Exam Vital Signs: BMI result Body Mass Index 24.8 Extrem Other: Patient presents with knee braces on both knees today. Able to perform full range of motion. Neurovascularly intact. Assessment & Plan Assessment & Plan (1) Tear of meniscus of right knee as current injury: Code(s): S83.206A - Unspecified tear of unspecified meniscus, current injury, right knee, initial encounter Category: Medical (2) Osteoarthritis of knees, bilateral: Code(s): M17.0 - Bilateral primary osteoarthritis of knee Category: Medical (3) Bilateral hip pain: Code(s): M25.551 - Pain in right hip; M25.552 - Pain in left hip Category: Medical Plan I again explained to the patient at length decision behind cancelling her surgery as the risks of surgery in a patient with Behcet disease and EDS far outweigh the benefits. The patient does express understanding despite her frustration. She is requesting bilateral knee braces to help with her stability. She was fit for a knee immobilizer in the office today. She does understand she is to not wear these at all times but only when she needs the sta bility for ambulation. I also placed an order for an AFO which she will get at a medical supply store for her right foot drop. I also placed a referral for the patient to be seen at [facility] for further evaluation of her knee pain in the setting of EDS. patient expresses understanding and all questions were answered. Orders: Referrals Orthopedics Referral M17.0 - Bilateral primary osteoarthritis of knee, M25.551 - Pain in right hip, M25.552 - Pain in left hip, Q79.60 - Kings-Danlos syndrome, unspecified, S83.206A - Unspecified tear of unspecified meniscus, current injury, right knee, initial encounter Medications: New [AFO] As directed 1 ea 0RF drop foot right Coding Level of Care Code Est Pt Level 3 (48104) Complex EM visit Add On G2211 Diagnoses Tear of meniscus of right knee as current injury S83.206A Osteoarthritis of knees, bilateral M17.0 Bilateral hip pain M25.551; M25.552
[2024-10-02 09:48] VITALS: BMI 24.8
--- OUTSIDE RECORDS SUMMARY | 2024-10-02 10:59 | XMS_ITS | Clinical Summary ---
Author Organization [facility] Address [address] [place] [address] Care Team Providers Care Live Source Operator Name Role Phone Ana Cortez Primary Care Provider [phone] Allergies Active Allergy Reactions Criticality Noted Date [...] Assessment & Plan: Will be scheduled with [facility]. Saw Dr. Reyes who [...] Insurance [employer] Care Teams Live Source Operator Relationship Specialty Start Date End Date Ana Cortez [address] [place] [address] PCP - General 04/10/23
--- OUTSIDE RECORDS SUMMARY | 2024-10-02 10:59 | XMS_ITS | Encounter Summary ---
Author Organization [facility] Address [facility] [employer] [address] [place] [phone] Phone Care Team Providers Care Sprinkler Helper Name Role Phone Pcp, Unknown Primary Care Provider Unavailabl e Encounter Details Date Type Department Care Team (Late st Contact Info) Description 04/12/2023 Procedure Pass [facility], Ct Scan - [address] [address] Social History Tobacco Use Types Packs/Day Years [...] 04/12/2023 9:23 PM Lucille Shah RN * [place] Suicide Severity Rating Scale (Screener/Recent Self-Report) Question [...] documented as of this encounter Care Teams Sprinkler Helper Relationship Specialty Start Date End Date Pcp, Unknown PCP - General 04/12/23 documented as of this encounter Additional Source Comments The information contained in this document represents components of the legal health record. It is not the complete legal health record.[facility]
--- OUTSIDE RECORDS SUMMARY | 2024-10-02 11:00 | XMS_ITS | Encounter Summary ---
Author Organization [facility] Address [address] [place] [address] Care Team Providers Care Marina Manager Name Role Phone Jo Ann Hebert Primary Care Provider [phone] Reason for Visit * Reason Onset Date Comments aUTH 09/30/2024 09/30/2024 Gurpreet fang Encounter Details Date Type Department Care Team (Late st Contact Info) Description 09/30/2024 Telephone General Surgery - [place] [address] [place] [address] Arturo Albarran, DO [address] [place] [address] aUTH (09/30/2024 Ken) Social History Tobacco Use Types Packs/Day Years [...] on file documented as of this encounter Progress Notes * Elham Wagner - 09/30/2024 2:03 PM EDT [id number] 09/26/2024-12/27/2024 [id number] APPROVED documented in this encounter Plan of Treatment Upcoming Encounters Date Type Department Care Team (Latest Contact Info) Description 10/06/2024 11:00 AM EDT Consult Plastic & Reconstructive Surgery [facility] [address] [address] Arturo Albarran DO [address] [address] 10/09/2024 2:00 PM EDT Procedure visit Plastic & Reconstructive Surgery [facility] [address] [address] Arturo Albarran DO [address] [address] 10/16/2024 7:30 AM EDT Hospital Encounter [facility] [place] [address] [place] [address] Arturo Albarran DO [address] [address] 10/16/2024 7:30 AM EDT - 10/16/2024 10:[address] [facility] [place] [address] [place] [address] Arturo Albarran, [address] [address] PANNICULECTOMY [[id number] (CPT )] 10/17/2024 1:00 PM EDT Office Visit Plastic & Reconstructive Surgery [address] [address] [place] [address] [address] 10/24/2024 1:30 PM EDT Office Visit Plastic & Reconstructive Surgery [address] [address] [place] [address] [address] 12/09/2024 1:[address] [facility] Xray [address] [place] [address] Scheduled Procedures Name Priority Associated Diagnoses Date/Ti me PANNICULECTOMY Abdominal pannus 10/16/2024 7:30 AM EDT documented as of this encounter Visit Diagnoses Not on filedocumented in this encounter Care Teams Marina Manager Relationship Specialty Start Date End Date Jo Ann Hebert PA 2 [facility], [address] [place] [address] PCP - General 08/25/24 documented as of this encounter
--- OUTSIDE RECORDS SUMMARY | 2024-10-02 11:00 | XMS_ITS | Clinical Summary ---
Author Organization [facility] Address [address] [place] [address] Care Team Providers Care Human Resources District Manager Name Role Phone Ana Cortez NP Primary Care Provider [phone] Allergies Active Allergy Reactions Criticality Noted Date [...] age to complete this topic Care Teams Human Resources District Manager Relationship Specialty Start Date End Date Ana Cortez NP [address] [address] PCP - General Family Medicine 09/21/22
== END 2024-10-02 10:09 | disposition home or self-care (01) ==
LOC: HO.HOS 09:40
PROVIDERS: Visit Provider Physician Assistant
DX: S83.206A Unspecified tear of unspecified meniscus, current injury, right knee, initial encounter (principal); M17.0 Bilateral primary osteoarthritis of knee; M25.551 Pain in right hip; M25.552 Pain in left hip
CPT/HCPCS: 99213

== ENCOUNTER → 2024-10-02 09:40 | Outpatient (BNVA) | payer OTHER, SELFPAY | PROVIDERS: Visit Provider Physician Assistant | DX: M17.0 Bilateral primary osteoarthritis of knee (principal); M25.551 Pain in right hip; M25.552 Pain in left hip; S83.206A Unspecified tear of unspecified meniscus, current injury, right knee, initial encounter; W18.30XA Fall on same level, unspecified, initial encounter; Y93.9 Activity, unspecified; Y92.9 Unspecified place or not applicable; Y99.9 Unspecified external cause status; Q79.60 Ehlers-Danlos syndrome, unspecified; M35.2 Behcet's disease; G89.4 Chronic pain syndrome | CPT/HCPCS: 99212 ==

== ENCOUNTER 2024-10-07 15:00 | Outpatient (AMB) | payer OTHER, SELFPAY ==
--- OUTSIDE RECORDS SUMMARY | 2024-08-27 11:00 | XMS_ITS | Encounter Summary ---
Author Organization [facility] Address [address] [place] [address] Care Team Providers Care Consumer Insight Analyst Name Role Phone Jo Ann Hebert Primary Care Provider [phone] Reason for Visit * Reason Comments Consult ADVERTISING CONSULTANT-pannus Encounter Details Date Type Department Care Team (Late st Contact Info) Description 08/27/2024 11:00 AM EDT Consult Plastic & Reconstructive Surgery - [place] [address] [place] [address] [place] [address] [place] [address] Abdominal pannus (Primary Dx); Intertrigo; Abrasion of labia minora, sequela; IgA deficiency ([facility] V24, [facility] V28) Social History Tobacco Use Types Packs/Day [...] HAVE ANY QUESTIONS PLEASE CALL THE OFFICE [phone] POTENTIAL SURGICAL COMPLICATIONS include but are not [...] 4 weeks. When to call the office ([phone]) If you have increased swelling and redness [...] included. PATIENT: Marie Pandya ENCOUNTER: 08/27/2024 EMRN: [id number] : 1990 Plastic Surgery Consultation CHIEF COMPLAINT: Consult (ADVERTISING CONSULTANT-pannus) The patient was given the opportunity to have a wastewater operator present during a sensitive examination attoday's visit. She accepted this offer of a wastewater operator. HPI: This 34 y.o. 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 Was i nitially shocked but now happy. Pt lives with spouce and children. 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 Ethic background above. Past Surgical History: Procedure Laterality Date ADENOIDECTOMY PROCEDURE: HISTORICAL ADENOIDECTOMY APPENDECTOMY PROCEDURE: HISTORICAL APPENDECTOMY ESOPHAGOGASTRODUODENOSCOPY 03/29/15 PROCEDURE: [place] EGD TRANSORAL BIOPSY SINGLE/MULTIPLE; COMMENT: mild distal [...] alert: patient with IgA deficiency PHYSICAL EXAM: Histology Technologist present during exam Weight: Wt Readings from [...] Description 10/16/2024 7:30 AM EDT Hospital Encounter [facility] OR [address] [place] [phone] Avel Albarran DO [address] [place] [address] 10/16/2024 7:30 AM EDT - 10/16/2024 10:00 AM EDT Surgery [facility] OR [address] [place] [phone] Avel Albarran DO [address] [place] [address] PANNICULECTOMY [[id number] (CPT )] 10/24/2024 1:30 PM EDT Office Visit [facility] [place] [address] [place] [phone] [place] [address] [place] [phone] 12/09/2024 1:00 PM EDT Appointment [facility] Xray [address] [place] [address] Scheduled Orders Name Type Priority [...] Associated Diagnoses Date/Ti me PANNICULECTOMY Abdominal pannus 10/16/2024 7:30 AM EDT PANNICULECTOMY Abdominal pannus Intertrigo Abrasion of labia minora, sequela LABIAPLASTY Abdominal pannus Intertrigo Abrasion of labia minora, sequela documented as of this encounter Visit Diagnoses Diagnosis Abdominal pannus- Primary Intertrigo Other specified erythematous condition Abrasion of labia minora, sequela IgA deficiency ([facility] V24, [facility] V28) Selective IgA immunodeficiency Abdominal pannus documented in this encounter Historical Medications * [...] 08/27/2024 documented in this encounter Care Teams Consumer Insight Analyst Relationship Specialty Start Date End Date Jo Ann Hebert PA [address] [place] [address], [address] [place] [address] PCP - General 08/25/24 documented as of this encounter
--- OUTSIDE RECORDS SUMMARY | 2024-10-06 11:00 | XMS_ITS | Encounter Summary ---
Author Organization [facility] Address [address] [place] [address] Care Team Providers Care Director Federal Name Role Phone Jo Ann Hebert Primary Care Provider [phone] Reason for Referral * Medications - Closed Specialty Diagnoses / Procedures Referred By Rob salamanca Referred To Contact Diagnoses Abdominal pannus Arturo Albarran DO [address] [place] [address] Referral ID Status Reason Start Date Expiration Date Visits Re quested Visits Authorized [id number] Closed 1 1 Reason for Visit * Reason Comments Pre-op Exam Panniculectomy Encounter Details Date Type Department Care Team (Late st Contact Info) Description 10/06/2024 11:00 AM EDT Consult Plastic & Reconstructive Surgery - [place] [address] [place] [address] Arturo Albarran DO [address] [place] [address] Abdominal pannus (Primary Dx) Social History Tobacco Use Types Packs/Day Years [...] Sign Reading Time Taken Comments Blood Pressure 117/69 10/06/2024 11:18 AM EDT Pulse 73 10/06/2024 11:18 AM EDT Temperature - - Respiratory Rate - - Oxygen Saturation - - Inhaled Oxygen Concentration - - Weight 63.4 kg (139 lb 12.8 oz) 025 11:18 AM EDT Height 160 cm (5' 3 ) 10/06/2024 11:18 AM EDT Body Mass Index 24.76 10/06/2024 11:18 AM EDT documented in this encounter Ordered Prescriptions Prescription Sig Dispense Quantity Refills Last Filled Start Date End Date cephalexin (KEFLEX) 500 mg capsule Take 1 capsule (500 mg total) by mouth 4 (four) times a day for 14 days. 56 each 10/06/2024 5 oxyCODONE (ROXICODONE) 5 mg immediate release tabletIndications: Abdominal pannus Take 1 tablet (5 mg total) by mouth every 4 (four) hours if needed for severe pain for up to 10 days. Max Daily Amount: 30 mg 40 each 10/06/2024 5 ondansetron (ZOFRAN) 4 mg tablet Take 1 tablet (4 mg total) by mouth every 8 (eight) hours if needed for nausea or vomiting for up to 7 days. 20 tablet 10/06/2024 5 docusate sodium (COLACE) 100 mg capsule Take 1 capsule (100 mg total) by mouth 2 (two) times a day for 10 days. 20 each 10/06/2024 5 cephalexin (KEFLEX) 500 mg capsule Take 1 capsule (500 mg total) by mouth 4 (four) times a day for 7 days. 28 each 10/06/2024 5 documented in this encounter Progress Notes * Arturo Albarran, - 10/06/2024 11:00 AM EDT PANNICULECTOMY POST-OP INSTRUCTIONS Get plenty of rest following your surgery [...] 4 weeks. When to call the office ([phone]) If you have increased swelling and redness [...] 1 month post-op, and 3 months post-op Drain Sheet Please bring with you to your follow up appointment! Drain 1 Day 1 2 3 4 5 6 7 AM PM Total Drain 2 Day 1 2 3 4 5 6 7 AM PM Total Drain 3 Day 1 2 3 4 5 6 7 AM PM Total Drain 4 Day 1 2 3 4 5 6 7 AM PM Total Still awaiting final approval from insurance for labiaplasty- will proceed as if approval will be obtained before surgery date- if denied then will defer just the labiaplasty and proceed with panniculectomy and file appeal documented in this encounter Plan of Treatment Upcoming Encounters Date Type Department Care Team (Latest Contact Info) Description 10/16/2024 7:30 AM EDT Hospital Encounter [facility] Main OR [address] [place] [phone] Arturo Albarran, DO [address] [place] [address] 10/16/2024 7:30 AM EDT - 10/16/2024 10:00 AM EDT Surgery [facility] Main [place] [address] [place] [phone] Arturo Albarran, DO [address] [place] [address] PANNICULECTOMY [[id number] (CPT )] 10/24/2024 1:30 PM EDT Office Visit Plastic & Reconstructive Surgery - [place] [address] [place] [phone] [place] [address] [place] [address] 12/09/2024 1:00 PM EDT Appointment [facility] Xray [address] [place] [phone] Scheduled Procedures Name Priority Associated Diagnoses Date/Ti me PANNICULECTOMY Abdominal pannus 10/16/2024 7:30 AM EDT PANNICULECTOMY Abdominal pannus Intertrigo Abrasion of labia minora, sequela LABIAPLASTY Abdominal pannus Intertrigo Abrasion of labia minora, sequela documented as of this encounter Visit Diagnoses Diagnosis Abdominal pannus- Primary Abdominal pannus documented in this encounter Discontinued Medications Medication Sig Discontinue Reason Start Date End Da te cephalexin (KEFLEX) 500 mg capsule Take 1 capsule (500 mg total) by mouth 4 (four) times a day for 7 days. 10/06/2024 10/06/2024 documented as of this encounter Care Teams Director Federal Relationship Specialty Start Date End Date Jo Ann Hebert PA 2 [facility], [address] [place] [address] PCP - General 08/25/24 documented as of this encounter
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
[2024-10-07 15:08] VITALS: BP 109/56; PULSE 60; O2SAT 97; BMI 24.4
--- OUTSIDE RECORDS SUMMARY | 2024-10-07 15:55 | XMS_ITS | Encounter Summary ---
Author Organization [facility] Address [facility] [employer] [address] [place] [address] Phone Care Team Providers Care Forest Science Professor Name Role Phone Glenny Dyson NP Primary Care Provider + Pcp, Unknown Primary Care Provider Unavailabl e Pcp, Unknown Primary Care Provider Unavailindiana e Jo Ann Hebert Primary Care Provide r Encounter Details Date Type Department Care Team (Late st Contact Info) Description 03/22/2022 Procedure Pass [facility], Ct Scan - [address] [address] Social History Tobacco Use Types Packs/Day Years Used Date Smoking Tobacco: Former Cigarettes 1 10 2 - 2014 Smokeless Tobacco: Never Alcohol Use Standard Drinks/Week Comments Not Currently 0 (1 standard drink = 0.6 oz pur e alcohol) very occasional Comments No Sex and Gender Information Value Date Recorded Sex Assigned at Female 03/09/2019 6:53 PM EST Legal Sex Female 9:05 PM EDT Gender Identity Female 03/09/2019 6:53 PM EST Sexual Orientation Straight 03/09/2019 6: 53 PM EST documented as of this encounter Functional Status * Calculated C-SSRS Risk Score (Lifetime/Recent) Answer Date of Assessment Author No Risk Indicated 03/22/2022 2:47 AM EST Kevin Luo RN * [place] Suicide Severity Rating Scale (Screener/Recent Self-Report) Question Answer Date of Assessment Author 1. Wish to be (Past 1 Month) No 023 2:47 AM Kevin Nevarez RN 2. Non-Specific Active Suici antonette Thoughts (Past 1 Month) No 03/22/2022 2:47 AM Prashant Nevarez RN 6. Suicidal Behavior (Lifetime) No 3 2:47 AM Kevin Nevarez RN documented as of this encounter Plan of Treatment Not on file documented as of this encounter Visit Diagnoses Not on filedocumented in this encounter Additional Health Concerns Assessment Noted Time PHQ-2 Depression Total Score: 1 04/17/19 20 1:38 PM EST documented as of this encounter Care Teams Forest Science Professor Relationship Specialty Start Date End Date Glenny Dyson NP [address] [place] [address] PCP - General Nurse Practitioner 03/17/22 04/14/22 Pcp, Unknown PCP - General 04/15/22 04/11/23 Pcp, Unknown PCP - General 04/12/23 10/02/24 Jo Ann Hebert PA [address] [place] [address] PCP - General Physician Batch Room Technician 10/03/24 documented as of this encounter Additional Source Comments The information contained in this document represents components of the legal health record. It is not the complete legal health record.[facility]
--- OUTSIDE RECORDS SUMMARY | 2024-10-07 15:55 | XMS_ITS | Encounter Summary ---
Author Organization [facility] Address [facility] [employer] [facility] [address] [place] [address] Phone Care Team Providers Care Assistant Dean Of Students Name Role Phone Nilda Watson Unavailable Octavio Castillo MD Primary Care Provider [phone] Octavio Castillo MD Unavailable Maryam Wu MD Primary Care Provid er Glenny Dyson NP Primary Care Provider + Juan F Gallo MD Primary Care Provider + Glenny Dyson VENETIAN BLIND ASSEMBLER Primary Care Provider + Pcp, Unknown Primary Care Provider Unavailabl e Pcp, Unknown Primary Care Provider Unavailabl e Jo Ann Hebert Primary Care Provide r Encounter Details Date Type Department Care Team (Late st Contact Info) Description 04/26/2020 Ancillary Orders Virtual Department [address] [place] [address] Falguni Valerio [address] [id number] [email or web address] Social History Tobacco Use Types Packs/Day Years Used Date Smoking Tobacco: Former Cigarettes 1 2 - 2014 Smokeless Tobacco: Never Alcohol Use Standard Drinks/Week Comments Not Currently 0 (1 standard drink = 0.6 oz pur e alcohol) very occasional Comments Yes Sex and Gender Information Value Date Recorded Sex Assigned at Female 03/09/2019 6:53 PM EST Legal Sex Female 9:05 PM EDT Gender Identity Female 03/09/2019 6:53 PM EST Sexual Orientation Straight 03/09/2019 6: 53 PM EST documented as of this encounter Plan of Treatment Not on file documented as of this encounter Results * US ABDOMEN LIMITED RIGHT UPPER QUADRANT (04/26/2020 3:36 PM EDT) Anatomical Region Laterality Modality Abdomen Ultrasound 04/26/2020 3:43 PM EDT Impressions 04/26/2020 3:48 PM EDT No apparent significant abnormality. However, evaluation is limited due to the patient's general body habitus. Particularly a potential gallbladder neck calculus is difficult to exclude and repeat imaging may be considered as indicated for this reason. Narrative 04/26/2020 3:48 PM EDT US ABDOMEN LIMITED RIGHT UPPER QUADRANT TECHNIQUE: Limited ultrasound evaluation of the abdomen focused on the right upper quadrant. Volumetric sweeps were obtained and reviewed. COMPARISON: None FINDINGS: LIVER: No focal lesions. PORTAL VEIN: Portal vein is patent. BILIARY: Gallbladder: within normal limits. Common bile duct measures 0.3 cm in diameter. PERITONEUM: No free fluid. Procedure Note Zana James MD - 04/26/2020 US ABDOMEN LIMITED RIGHT UPPER QUADRANT TECHNIQUE: Limited ultrasound evaluation of the abdomen focused on theright upper quadrant. Volumetric sweeps were obtained and reviewed. COMPARISON: None FINDINGS: LIVER: No focal lesions. PORTAL VEIN: Portal vein is patent. BILIARY: Gallbladder: within normal limits. Common bile duct measures 0.3 cm in diameter. PERITONEUM: No free fluid. IMPRESSION: No apparent significant abnormality. However, evaluation is limited due tothe patient's general body habitus. Particularly a potential gallbladderneck calculus is difficult to exclude and repeat imaging may be consideredas indicated for this reason. Falguni L Valerio CNM IMG US ABDOMEN Final Resu lt documented in this encounter Visit Diagnoses Diagnosis RUQ pain Abdominal pain, right upper quadrant RUQ pain Abdominal pain, right upper quadrant documented in this encounter Additional Health Concerns Infection Onset Date Last Indicated Resolved Time CoV-Risk 08/17/2021 08/17/2021 08/28/2021 1:22 AM EDT Assessment Noted Time PHQ-2 Depression Total Score: 1 04/17/19 1:38 PM EST documented as of this encounter Care Teams Assistant Dean Of Students Relationship Specialty Start Date End Date Nilda Watson PA [address] [place] [id number] [email or web address] PCP - Resident PCP 04/11/19 07/14/21 Octavio Castillo MD [address] [place] [address], [address] [place] [address] [email or web address] PCP - General Internal Medicine 07/10/19 07/14/21 Maryam Wu MD [address] [place] [address] [place] [id number] [email or web address] PCP - General Family Medicine 07/15/21 03/05/22 Glenny Dyson NP [address] [place] [address] PCP - General Nurse Practitioner 03/06/22 03/15/22 Juan F Gallo MD [address] [place] [address] PCP - General Internal Medicine 03/16/22 03/16/22 Gl[place] [address] PCP - General Nurse Practitioner 03/17/22 04/14/22 Pcp, Unknown PCP - General 04/15/22 04/11/23 Pcp, Unknown PCP - General 04/12/23 10/02/24 Jo Ann Hebert PA [address] [place] [address] PCP - General Physician Patient Care Secretary 10/03/24 Octavio Castillo MD [address] [place] [address], [address] [place] [address] [email or web address] Insurance Assigned Provider 08/18/19 11/20/20 documented as of this encounter Additional Source Comments The information contained in this document represents components of the legal health record. It is not the complete legal health record.[facility]
--- OUTSIDE RECORDS SUMMARY | 2024-10-07 15:55 | XMS_ITS | Encounter Summary ---
Author Organization [facility] Address [address] [place] [address] Care Team Providers Care Real Estate Operations Manager Name Role Phone Ana Cortez Primary Care Provider [phone] Encounter Details Date Type Department Care Team (Late st Contact Info) Description 08/11/2022 Orders Only [facility] [address] [place] [address] Brenda Willard, DO [address] [place], [place] [phone] Social History Tobacco Use Types Packs/Day Years [...] on filedocumented in this encounter Care Teams Real Estate Operations Manager Relationship Specialty Start Date End Date Ana Cortez [address] [place] [address] PCP - General 04/10/23 documented as of this encounter
--- OUTSIDE RECORDS SUMMARY | 2024-10-07 15:55 | XMS_ITS | Encounter Summary ---
Author Organization [facility] Address [facility] [employer] [address] [place] [address] Phone Care Team Providers Care Audio Video Repairer Name Role Phone Pcp, Unknown Primary Care Provider Unavailabl e Pcp, Unknown Primary Care Provider Unavailabl e Jo Ann Hebert Primary Care Provide r Encounter Details Date Type Department Care Team (Late st Contact Info) Description 04/15/2022 Procedure Pass [facility], Ct Scan - [address] [address] Social History Tobacco Use Types Packs/Day Years Used Date Smoking Tobacco: Former Cigarettes 1 10 2 2014 Smokeless Tobacco: Never Alcohol Use Standard [...] Date of Assessment Author No Risk Indicated 04/15/2022 7:37 PM Glenny Brothers RN * [place] Suicide Severity Rating Scale (Screener/Recent Self-Report) Question Answer Date of Assessment Author 1. Wish to be (Past 1 Month) No 04/15/2022 7:37 PM Glenny Brothers RN 2. Non-Specific Active Suici antonette Thoughts (Past 1 Month) No 04/15/2022 7:37 PM Pham Brothers RN 6. Suicidal Behavior (Lifetime) No 7:37 PM EST Glenny Francisco RN documented as of this encounter Plan of Treatment Not on file documented as of this encounter Visit Diagnoses Not on filedocumented in this encounter Additional Health Concerns Assessment Noted Time PHQ-2 Depression Total Score: 1 04/17/19 20 1:38 PM EST documented as of this encounter Care Teams Audio Video Repairer Relationship Specialty Start Date End Date Pcp, Unknown PCP - General 04/15/22 04/11/23 Pcp, Unknown PCP - General 04/12/23 10/02/24 Jo Ann Hebert PA [address] [place] [address] [place] [address] PCP - General Physician Test Fixture Assembler 10/03/24 documented as of this encounter Additional Source Comments The information contained in this document represents components of the legal health record. It is not the complete legal health record.[facility]
--- OUTSIDE RECORDS SUMMARY | 2024-10-07 15:55 | XMS_ITS | Clinical Summary ---
Author Organization [facility] Address [address] [place] [address] Care Team Providers Care Wax Ball Knock Out Worker Name Role Phone Ana Cortez NP Primary Care Provider [phone] Allergies Active Allergy Reactions Criticality Noted Date [...] age to complete this topic Care Teams Wax Ball Knock Out Worker Relationship Specialty Start Date End Date Ana Cortez NP [address] [address] PCP - General Family Medicine 09/21/22
--- OUTSIDE RECORDS SUMMARY | 2024-10-07 15:55 | XMS_ITS | Clinical Summary ---
Author Organization [facility] Address [address] [place] [address] Care Team Providers Care Latcher Name Role Phone Ana Cortez Primary Care Provider [phone] Allergies Active Allergy Reactions Criticality Noted Date [...] Assessment & Plan: Will be scheduled with [facility] GI. Saw Dr. Reyes who recommended [...] Insurance [employer] Care Teams Latcher Relationship Specialty Start Date End Date Ana Cortez [address] [place] [address] PCP - General 04/10/23
--- OUTSIDE RECORDS SUMMARY | 2024-10-07 15:55 | XMS_ITS | Clinical Summary ---
Author Organization [facility] Address [facility] [employer] [address] [address] Phone Care Team Providers Care Director Group Sales Name Role Phone Jo Ann Hebert Primary Care Provide r Allergies Active Allergy Reactions Criticality Noted Date Comments Adhesive Rash High 03/09/2019 Erythromycin Rash Low 01/18/2006 Gadolinium-Containing Contrast Media 03/17/2022 Iodine Hives 08/03/2022 Latex Hives,Rash High 03/09/2019 Medications EPINEPHrine 0.3 mg/0.3 mL auto-injector Inject 0.3 mL (0.3 mg total) into the muscle as needed for anaphylaxis. 2 each 08/03/19 22 Active docusate sodium (COLACE) 100 MG capsule Take 1 capsule (100 mg total) by mouth 2 (two) times a day. 30 capsule 03/06/19 23 Active famotidine (PEPCID) 40 MG tablet 03/16/19 23 Active methylPREDNISolone (MEDROL) 16 MG tablet See Instructions, Take 2 tablets [address] scan then again [address] scan[address] # 4 tablet, 0 Refills, Maintenance, 03/06/22 14:34:00 [id number], Partial fill upon patient request if the prescription is for a joaquin... 03/06/19 23 Active ketorolac (TORADOL) 10 mg tablet 12/27/19 22 Active ondansetron (ZOFRAN-ODT) 4 MG disintegrating tablet Take 1 tablet (4 mg total) by mouth every 8 (eight) hours as needed. 20 tablet 03/22/19 Active morphine (MSIR) 15 MG tablet Take 0.5 tablets (7.5 mg total) by mouth every 6 (six) hours as needed for pain (specific location in comments). Partial fill ok 5 tablet 03/22/19 Active Active Problems Problem Noted Date Diagnosed Date Chronic pelvic pain in female 08/29/2019 Overview (08/29/2019): Since 2018 Migraine without aura and wi thout status migrainosus, not intractable 08/29/2019 Assessment & Plan (08/29/2019 1:34 PM EDT): A history today of her migraines is taken; she reports no aura. She states that during the headache, she does have some nausea and visual spots/lights and photophobia. No symptoms precede the headache. 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 Conservative therapy not effective. Patient noting decreased sas developer strength and progressive pain. -will refer to orthopedics for consult. Patient prefers to continue using topical pain relieving cream over adding any new medications. Anxiety with depression 04/20/2019 Assessment & Plan (04/20/2019 2:01 PM EDT): Recent increase in zoloft to 100mg daily with noted improvement -will refill today Right lower quadrant pain 04/20/2019 Assessment & Plan (07/11/2019 9:20 AM EDT): Will be scheduled with [facility] GI. Saw Dr. Reyes who recommended work up of potential GI causes of her pain prior to diagnostic laparoscopy. Assessment & Plan (05/12/2019 3:53 PM EDT): We reviewed broad differential for pelvic pain. Discussed that normal pelvic imaging has ruled out structural abnormalities. Reviewed that PCOS does not result in pelvic pain and menstrual history is not consistent with this diagnosis. We discussed endometriosis - reviewed that first line treatment for endometriosis is hormonal contraception that suppresses ovulation. Given that her pain has not responded to ovulation suppression, endometriosis is less likely although cannot be ruled out. We discussed consideration for diagnostic laparoscopy once pending GI evaluation is completed. Reviewed that due to COVID-19, we are not scheduling elective surgeries for at least 6-8 weeks. Recommend continuation with [employer] for now. Can use OTC analgesics and symptomatic comfort measures. Pt will f/u PRN upon completion of remaining eval. Assessment & Plan (04/20/2019 2:05 PM EDT): Possible GI vs VARNISHING UNIT OPERATOR etiology. S/p appendectomy-possible adhesion formation, endometriosis. -will obtain CT abdomen/pelvis. Has not had one since onset of pain -urgent referral to VARNISHING UNIT OPERATOR to discuss pain/recent u/s with possible retained products, completed 2 weeks doxy and 1 week of augmentin -discussed likely needs referral to GI and/or general surgery pending CT scan, will wait for those results prior to placing referrals -masspat checked. Will do small amount of tramadol for severe pain, otherwise she will continue to use ibuprofen and tylenol. Patient counseled on risks of addiction, tolerance, dependence, sedation and that she should not drive/operate heavy machinery while taking medication and she voices understanding. -plan to follow up in 2-3 weeks to review. Will hopefully have all records from previous pcp at that point Allergic reaction to contrast dye 04/20/2019 Assessment & Plan (04/20/2019 2:01 PM EDT): Prednisone and rx for benadryl with directions for dosing prior to CT scan History of melanoma 04/20/2019 Assessment & Plan (04/20/2019 2:06 PM EDT): S/p mohs surgery in July 2017. She would like referral to new repairer kiln car given her recent bad experience with [facility] -ne derm referral placed Asthma 09/24/2013 Resolved Problems Problem Noted Date Diagnosed Date Resolved Date Moderate vaginal bleeding 03/09/2019 Assessment & Plan (03/09/2019 10:32 PM EST): Delayed bleeding and pain secondary to induced medical . Advised patient it is possible with clotting and bleeding that she experienced today that tissue passed. Ultrasound findings confirm no IUP. Advised patient it is possible there could be a very small amount of POC remaining. Most likely this will pass spontaneously. Option of D&C, repeat dose misoprostol, expectant management reviewed with patient. She prefers expectant management at this time. Overall patient states she is feeling a bit better. Has had good relief of pain in the ER although some cramping is persisting. She states bleeding has subsided and is really no worse than when she has a menstrual flow. She worries about continued pain. [facility]. Patient provided with prescription for oxycodone. Patient has Phenergan and ibuprofen at home. Immunizations Immunization Administration Dates Next Due Tdap 10/13/2015 Family History Medical History Relation Comments No Known Problems Father Ovarian cancer Maternal Aunt Rheumatoid arthritis Maternal Grandmother Graves' disease Mother Thyroid disease Mother Relation Status Comments Father Maternal Aunt Maternal Grandmother Mother Social History Tobacco Use Types Packs/Day Years Used Date Smoking Tobacco: Former Cigarettes 1 10 2 005 - 2015 Smokeless Tobacco: Never Alcohol Use Standard Drinks/Week [...] Orientation Straight 03/09/2019 6: 53 PM EST Last Filed Vital Signs Vital Sign Reading Time Taken Comments Blood Pressure 103/62 04/12/2023 11:25 PM EST Pulse 54 04/12/2023 11:25 PM EST Temperature 36.4 C (97.5 F) 04/12/2023 11:30 PM EST Respiratory Rate 16 04/12/2023 11:25 PM EST Oxygen Saturation 95% 04/12/2023 11:25 PM EST Inhaled Oxygen Concentration - - Weight 79.4 kg (175 lb) 04/12/2023 6:05 PM EST Height 162.6 cm (5' 4 ) 04/12/2023 6:05 PM EST Body Mass Index 30.04 04/12/2023 6:05 PM EST Plan of Treatment Health Maintenance Due Date Last Done Comments SMOKING Hx and SMOKELESS TOBACCO SCREENING 2002 HEPATITIS C SCREENING 2007 HIV ONE-TIME SCREENING (18-6 5 YEARS) 2007 PNEUMOCOCCAL VACCINES (0-49 years) (1 of 2 - PCV) 01/07/2008 PAP SMEAR 2010 DEPRESSION SCREENING 04/16/2020 04/17/2019 COVID-19 VACCINE (1 - 2023-2 5 season) 2023 INFLUENZA VACCINE (#1) 2024 Adult Td,Tdap Booster 10/12/2025 10/13/2015 SCREENING FOR DIABETES 04/11/2026 4, 12/05/2019 HEPATITIS A VACCINES Aged Out No long er eligible based on patient's age to complete this topic HIB VACCINES Aged Out No longer eligi ble based on patient's age to complete this topic MENINGOCOCCAL VACCINES (ACWY) Aged Out No longer eligible based on patient's age to complete this topic MENINGOCOCCAL VACCINES (B) Aged Out N o longer eligible based on patient's age to complete this topic Medical Devices Not on file [place] [address] [place] [address] [place] [address] [place] [address] [place] [address] [place] [address] [place] [address] [place] [address] [facility] [facility] [employer] [facility] [employer] Care Teams Director Group Sales Relationship Specialty Start Date End Date Jo Ann Hebert PA [address] [place] [address] [place] [address] PCP - General Physician Director Customer 10/03/24 Additional Source Comments The information contained in this document represents components of the legal health record. It is not the complete legal health record.[facility]
--- OUTSIDE RECORDS SUMMARY | 2024-10-07 15:55 | XMS_ITS | Encounter Summary ---
Author Organization [facility] Address [facility] [employer] [facility] [address] [place] [address] Phone Care Team Providers Care Operations Scheduler Name Role Phone Glenny Dyson NP Primary Care Provider + Pcp, Unknown Primary Care Provider Unavailabl e Pcp, Unknown Primary Care Provider Unavailabl e Jo Ann Hebert Primary Care Provide r Encounter Details Date Type Department Care Team (Late st Contact Info) Description 03/17/2022 Procedure Pass [facility]oscopy Admitting Dept Virtual Department [address] [place] [address] Social History Tobacco Use Types Packs/Day Years [...] documented as of this encounter Care Teams Operations Scheduler Relationship Specialty Start Date End Date Glenny Dyson NP [address] [place] [address] PCP - General Nurse Practitioner 03/17/22 04/14/22 Pcp, Unknown PCP - General 04/15/22 04/11/23 Pcp, Unknown PCP - General 04/12/23 10/02/24 Jo Ann Hebert PA [address] [facility] [place] [address] PCP - General Physician Program Specialist 10/03/24 documented as of this encounter Additional Source Comments The information contained in this document represents components of the legal health record. It is not the complete legal health record.[facility]
--- OUTSIDE RECORDS SUMMARY | 2024-10-07 15:55 | XMS_ITS | Encounter Summary ---
Author Organization [facility] Address [address] [place] [address] Phone Care Team Providers Care Natural Gas Inspector Name Role Phone Pcp, Unknown Primary Care Provider Jo Ann Mg Primary Care Provide r Encounter Details Date Type Department Care Team (Late st Contact Info) Description 04/12/2023 Procedure Pass [facility], Ct Scan - [facility] [address] [place] [address] Social History Tobacco Use Types Packs/Day Years [...] 04/12/2023 9:23 PM Lucille Shah RN * [place] Suicide Severity Rating Scale (Screener/Recent Self-Report) Question [...] documented as of this encounter Care Teams Natural Gas Inspector Relationship Specialty Start Date End Date Pcp, Unknown PCP - General 04/12/23 10/02/24 Jo Ann Hebert PA [address] [place] [address] [place] [address] PCP - General Physician Java Software Engineer 10/03/24 documented as of this encounter Additional Source Comments The information contained in this document represents components of the legal health record. It is not the complete legal health record.[facility]
--- OUTSIDE RECORDS SUMMARY | 2024-10-07 15:55 | XMS_ITS | Clinical Summary ---
Author Organization [address] Address [address] [place] [address] [place] [address] Phone Care Team Providers Care Weighmaster Name Role Phone Jo Ann Hebert Primary Care Provider [phone] Allergies Active Allergy Reactions Criticality Noted Date Comments Adhesive Tape-Silicones Rash 05/04/2011 localized Erythromycin Rash 01/18/2006 Latex Rash 07/04/2016 Localized;Pt reports latex sensitivity, gets rash with use Other 11/12/2018 Other (No Interaction Warnings)-Blood product alert: patient with IgA deficiency Acetaminophen Liver function tests abnormal 10/02/2024 Medications DULoxetine (Drizalma Sprinkle) 30 mg capsule, delayed rel sprinkle Take by mouth 1 (one) time each day. Active DULoxetine (CYMBALTA) [address] capsule Take 1 capsule (60 mg total) by mouth 1 (one) time each day. Active amphetamine-de xtroamphetamin e (ADDERALL) 10 mg tablet Take 1 tablet (10 mg total) by mouth 2 (two) times a day. Active gabapentin (NEURONTIN) 600 mg tablet Take 1 tablet (600 mg total) by mouth 3 (three) times a day. Active colchicine (COLCRYS) 0.6 mg tablet Take 1 tablet (0.6 mg total) by mouth 1 (one) time each day. Active tiZANidine (ZANAFLEX) 2 mg capsule Take 1 capsule (2 mg total) by mouth 4 (four) times a day. Active diazePAM (VALIUM) 5 mg tablet Take 2 mg by mouth every 8 (eight) hours if needed for anxiety. Active tacrolimus (ENVARSUS XR) 0.75 mg extended release tablet Take 0.14 mg/kg by mouth 1 (one) time each day. Active desoximetasone (TOPICORT) 0.05 % cream Apply topically 2 (two) times a day. Active nabumetone (RELAFEN) 500 mg tablet Take 1 tablet (500 mg total) by mouth 2 (two) times a day. Active apremilast (Otezla) 30 mg tablet Take 30 mg by mouth 2 (two) times a day. Active dicyclomine (BENTYL) 10 mg capsule Take 1 capsule (10 mg total) by mouth 4 (four) times a day (before meals and nightly). Active oxyCODONE (ROXICODONE) 10 mg immediate release tablet Take 1 tablet (10 mg total) by mouth 3 (three) times a day if needed for severe pain. Max Daily Amount: 30 mg Active docusate sodium (COLACE) 100 mg capsule Take 1 capsule (100 mg total) by mouth 2 (two) times a day for 10 days. 20 each 10/07/19 25 025 Active ondansetron (ZOFRAN) 4 mg tablet Take 1 tablet (4 mg total) by mouth every 8 (eight) hours if needed for nausea or vomiting for up to 7 days. 20 tablet 10/07/19 25 025 Active oxyCODONE (ROXICODONE) 5 mg immediate release tabletIndicati ons:Abdominal pannus Take 1 tablet (5 mg total) by mouth every 4 (four) hours if needed for severe pain for up to 10 days. Max Daily Amount: 30 mg 40 each 10/07/19 25 025 Active cephalexin (KEFLEX) 500 mg capsule Take 1 capsule (500 mg total) by mouth 4 (four) times a day for 14 days. 56 each 10/07/19 25 025 Active LORazepam (ATIVAN) 1 mg tablet Take 1 tablet (1 mg total) by mouth. 10/14/19 20 025 Discontinued busPIRone (BUSPAR) 15 mg tablet Take 1 tablet (15 mg total) by mouth 3 (three) times a day. 025 Discontinued dextroamphetam ine/amphetamin e (ADDERALL ORAL) Take 5 mg by mouth daily as needed. 025 Discontinued baclofen (LIORESAL) 10 mg tablet Take 1 tablet (10 mg total) by mouth 3 (three) times a day. 025 Discontinued naproxen (NAPROSYN) 500 mg tablet Take 1 tablet (500 mg total) by mouth 2 (two) times a day with meals. 025 Discontinued METHYLPREDNISO LONE ORAL Take by mouth. 025 Discontinued cephalexin (KEFLEX) 500 mg capsule Take 1 capsule (500 mg total) by mouth 4 (four) times a day for 7 days. 28 each 10/07/19 25 025 Discontinued Active Problems Problem Noted Date Diagnosed Date Abdominal pannus 08/27/2024 Intertrigo 08/27/2024 Abrasion of labia minora 08/27/2024 Morbid obesity with BMI of 4 0.0-44.9, adult ([facility] V24, [facility] V28) 11/23/2023 Allergic conjunctivitis of both eyes 06/19/2019 Perennial allergic rhinitis 06/19/2019 Arthralgia 04/09/2019 Lower abdominal pain 04/09/2019 IgA deficiency ([facility] V24, [facility]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 Melanoma in situ ([facility] V24, [facility] V28) 03/2018 Nevus 08/12/2018 Insulin controlled gestation al diabetes mellitus (GDM) during , antepartum 04/17/2018 Uterine size-date discrepancy in third trimester 11/08/2017 Rubella non-immune status, antepartum 07/13/2016 Overview (11/23/2023): Needs pp vaccine Non-ulcer dyspepsia 04/02/2015 Overview (11/23/2023): EGD 03/30/15 - mild esophageal erythema, gastritis with neg. Biopsies Abdominal ultrasound 03/31/17 wnl Asthma 09/24/2013 Encounters Date Type Department Care Team Description 10/06/2024 11:00 AM EDT Consult Plastic & Reconstructive Surgery - [place] [address] [facility] [address] [place] [address] Arturo Albarran DO Abdominal pannus (Primary Dx) 09/30/2024 Telephone General Surgery [facility] [address] [facility] [address] [place] [address] Arturo Albarran DO 08/29/2024 Telephone [facility] Surgery [facility] [address] [facility] [address] [place] [address] Arturo Albarran DO 08/27/2024 11:00 AM EDT Consult Plastic & Reconstructive Surgery [facility] [address] [place] [phone] [place] Abdominal pannus (Primary Dx); [...] APPENDECTOMY PROCEDURE: HISTORICAL APPENDECTOMY ESOPHAGOGASTRODUODENOSCOPY 03/29/15 PROCEDURE: FL EGD TRANSORAL BIOPSY SINGLE/MULTIPLE; COMMENT: mild distal esophagitis, antritis and duodenitis. bxs of all - bx all negative ADENOIDECTOMY PROCEDURE: HISTORICAL ADENOIDECTOMY CHOLECYSTECTOMY Medical History Medical History Date Comments History of migraine DX:History o f migraine Obesity DX:Obesity Family history of hyperthyroidism 01/20/2019 DX:Family history of hyperthyroidism Fibromyalgia DJD (degenerative joint disease) Bradycardia Family History Medical History Relation Name Comments [...] Mass Index 24.76 10/06/2024 11:18 AM EDT Plan of Treatment Upcoming Encounters Date Type Department Care Team (Latest Contact Info) Description 10/16/2024 7:30 AM EDT Hospital Encounter [facility] Main OR [address] [place] [address] Arturo Albarran DO [address] [place] [address] 10/16/2024 7:30 AM EDT - 10/16/2024 10:00 AM EDT Surgery [facility] Main OR [address] [place] [address] Arturo Albarran DO [address] [place] [address] PANNICULECTOMY [[id number] (CPT )] 10/24/2024 1:30 PM EDT Office Visit [facility] & [facility] - [place] [address] [place] [address] [place] [address] [place] [address] 12/09/2024 1:00 PM EDT Appointment [facility] Xray [address] [place] [address] Scheduled Procedures Name Priority Associated Diagnoses Date/Ti me PANNICULECTOMY Abdominal pannus 10/16/2024 7:30 AM EDT PANNICULECTOMY Abdominal pannus Intertrigo Abrasion of labia minora, sequela LABIAPLASTY Abdominal pannus Intertrigo Abrasion of labia minora, sequela Health Maintenance Due Date Last Done Comments [...] Venous blood specimen / Unknown Historical Provider MD LAB BLOOD ORDERABLES Candis l Result * Hm HIV Screening (06/14/2017) HIV Screening abstracted Historical Provider HEALTH MAINTENANCE Final Result * Pap smear (06/13/2017) 06/13/2017 Narrative HISTORICAL TESTING LAB RESULTING AGENCY - 06/20/2017 4:55 PM EDT [id number] THINPREP PAP, IMAGED AND CELL BLOCK: NEGATIVE [...] Most Recently Relevant to Health Maintenance Insurance [facility] MEDICAID - [place] Care Teams Weighmaster Relationship Specialty Start Date End Date Jo Ann Hebert PA [address] [place] [address], [address] [place] [address] PCP - General 08/25/24
== END 2024-10-07 15:44 | disposition home or self-care (01) ==
LOC: HO.PMC 15:01
PROVIDERS: Visit Provider Nurse Practitioner Family
DX: M54.2 Cervicalgia (principal); M25.551 Pain in right hip; M25.552 Pain in left hip; S22.000A Wedge compression fracture of unspecified thoracic vertebra, initial encounter for closed fracture; M25.561 Pain in right knee; M25.562 Pain in left knee; G89.29 Other chronic pain; M25.50 Pain in unspecified joint; M79.7 Fibromyalgia; M54.50 Low back pain, unspecified; M54.6 Pain in thoracic spine
CPT/HCPCS: 99214

== ENCOUNTER → 2024-10-07 15:00 | Outpatient (BNVA) | payer OTHER, SELFPAY | PROVIDERS: Visit Provider Nurse Practitioner Family | DX: G89.4 Chronic pain syndrome (principal) | CPT/HCPCS: 99212 ==

== ENCOUNTER → 2024-10-12 14:07 | Outpatient (BNV) | payer OTHER, SELFPAY | PROVIDERS: Visit Provider Radiology Diagnostic Radiology | DX: M43.8X4 Other specified deforming dorsopathies, thoracic region (principal) | CPT/HCPCS: 72146 ==

== ENCOUNTER 2024-10-12 14:08 | Outpatient (REF) | payer OTHER, SELFPAY ==
--- OUTSIDE RECORDS SUMMARY | 2024-08-27 11:00 | XMS_ITS | Encounter Summary ---
Author Organization [facility] Address [address] [place] [address] Care Team Providers Care Technology Auditor Name Role Phone Jo Ann Hebert Primary Care Provider [phone] Reason for Visit * Reason Comments Consult SMALL ENGINE TECHNICIAN-pannus Encounter Details Date Type Department Care Team (Late st Contact Info) Description 08/27/2024 11:00 AM EDT Consult Plastic & Reconstructive Surgery - [place] [address] [place] [address] [place] [address] [place] [address] Abdominal pannus (Primary Dx); Intertrigo; Abrasion of labia minora, sequela; IgA deficiency ([facility] V24, [facility] V28) Social History Tobacco Use Types Packs/Day Years [...] on file Sexual Orientation Not on file documented as of this encounter Last Filed Vital Signs Vital Sign Reading Time Taken Comments Blood Pressure 107/64 08/27/2024 11:14 AM EDT Pulse 70 08/27/2024 11:14 AM EDT Temperature - - Respiratory Rate - - Oxygen Saturation - - Inhaled Oxygen Concentration - - Weight 63.6 kg (140 lb 3.2 oz) 08/27/2024 11:14 AM EDT Height 166.4 cm (5' 5.5 ) 08/27/2024 11:14 AM ED T Body Mass Index 22.98 08/27/2024 11:14 AM EDT documented in this encounter Progress Notes * ALONSO Echevarria - 08/27/2024 11:00 AM EDT PANNICULECTOMY SURGERY INFORMATION We are submitting to insurance for paniculectomy We are also submitting to insurance for Labioplasty We will call you to let you know when we hear back from Insurance You are considering having a panniculectomy surgery with Dr. Albarran. This surgery removes the excessskin in front of the abdomen. During this surgery you are asleep, and when you wake up you are discharged home that day. If we think you are a good surgical candidate, we will submit to insurance and call you to schedulesurgery if you are approved. IF YOU HAVE ANY QUESTIONS PLEASE CALL THE OFFICE [phone] POTENTIAL SURGICAL COMPLICATIONS include but are not limited to: - Infection - Postoperative hematoma - Postoperative seroma - Tissue necrosis - Fat necrosis After Surgery: Get plenty of rest following your surgery Sleep with two pillows elevating your head and 1-2 pillows under your knees. Wear your abdominal binder at all times for 4 weeks Avoid vigorous activity Take antibiotics as prescribed- you will be taking the antibiotics the entire time your drains are in! The first few days will be the most uncomfortable - your abdomen will feel tight. You should walk slightly hunched over for this time allowing your abdomen to gradually stretch. Take pain medication as prescribed - do not drink alcohol while taking pain medications Empty and record the output of your drains daily as instructed, and bring with you to each follow-up appointment DO NOT SHOWER until both drains are removed - usually 2-3 weeks Do not take aspirin or aspirin containing products DO NOT SMOKE or use ANY NICOTINE products - smoking delays healing and increases the chance for complications You may return to exercise in about 4-6 weeks. You should be able to return to work around 4 weeks. When to call the office ([phone]) If you have increased swelling and redness persisting more than a few days If you have increased redness or yellow/green/foul smelling discharge along your incision If you have severe or increased pain not relived by pain medication If you have any side effects to the medications (rash, severe nausea, severe headache, vomiting) If you have a temperature over 100.4 degrees If you have severe bleeding from the incisions that is difficult to control with light pressure - some bleeding is normal. 1 Week Post Op: This appointment is to check the incisions and check for any complications that may have arisen The water proof tape over your incisions will stay on until your next appointment We will be removing one drain at this visit 2 Week Post Op: At this appointment we will remove the water proof tape and further check the incision sites This is also a time to answer any further questions you may have. If your remaining drain is ready, we will remove it. If not, we will have you come in the followingweek for drain removal We will also be seeing you 1 month post-op, and 3 months post-op * Avel Albarran DO - 08/27/2024 11:00 AM EDTAddended by: AVEL ALBARRAN on: 10/02/2024 11:55 AM Modules accepted: Orders * ALONSO Echevarria - 08/27/2024 11:00 AM EDT Images from the original note were not included. PATIENT: Marie Pandya ENCOUNTER: 08/27/2024 EMRN: [id number] : 1990 Plastic Surgery Consultation CHIEF COMPLAINT: Consult (SMALL ENGINE TECHNICIAN-pannus) The patient was given the opportunity to have a mixing machine tender cork rod present during a sensitive examination attoday's visit. She accepted this offer of a mixing machine tender cork rod. HPI: This 34 y.o. female presents for evaluation of abdominal pannus. Patient has a PMH of IgA deficiency, Bechet's disease, and Kings danlos syndrome. She states that due to these issues, she had a bout of atrophic gastritis, causing her to lose a significant amount of weight. She states she has lost around 100 lbs. She has been weight stable for approximately 6 months. She now has a pannus that hangs down to her vagina and there is a fungal rash underneath the abdomen. She has been suffering with continuous rashes and skin infections due to the pannus. The IgA deficiency also makes her more susceptible to infection. Patient has attempted and failed antifungal treatment. They are interested in surgery to reduce the skin in the front of the abdomen. She also complains of long/painful Labia minora. She is requesting resection/labiaplasty. She states that her labia minora have grown longer, and, especially her right labia, it is in the way of daily activities. It commonly gets torn/scratched/stretched, causing her pain. She states that it interferes with intercourse because it makes intercourse painful. It is painful to wear certain underwear.When she sits down she sits on her labia causing pain. It is difficult to keep good hygiene after using the restroom. It is causing her significant functional impairment. Also, she is interested in removing her tattoo on her lower back. She got it when she was 15 years old. When she had the tattoo, it caused a skin reaction, and due to this, no one is willing to remove with a laser. She is interested in surgical resection and believes there is enough skin to remove that would also give her a bit of a skin lift in the lower back region. Patient comes in today with a wheelchair, but states that she can ambulate with a cane. She has balance issues and joint issues. She is currently waiting to have a bilateral knee replacement, she is currently on a Holter monitor for medical clearance for knee surgery because she has some bouts of bradycardia. She states that she is able to ambulate at home with a cane. Other abdominal surgical history includes appendectomy, lower back surgery Former smoker quit in 2017 ROS: CONSTITUTIONAL: no malaise, no significant weight changes, no excessive fatigue, no fevers or chills EYES: no visual complaints ENT: no changes in hearing vision nasal problems or hoarseness CARDIOVASCULAR:no chest pain and leg swelling or palpitations RESPIRATORY: no chronic cough wheezing or shortness of breath GI: no abdominal pain nausea vomiting or diarrhea : no dysuria frequency or incontinence NEUROLOGICAL: no stated paresthesias PSYCHIATRIC: no change from baseline ENDOCRINE: no heat or cold intolerance HEMATOLOGIC: no excessive bleeding MUSCULOSKELETAL: Neck and upper back pain INTEGUMENTARY: Rash along the abdomen and underneath the breasts bilaterally. I have reviewed the following sections of the chart: Past Medical History: Diagnosis Date Family history of hyperthyroidism 01/20/2019 DX:Family history of hyperthyroidism History of migraine DX:History of migraine Obesity DX:Obesity Family History Problem Relation Name Age of Onset Hypertension Mother Other (Other: autoimmune disorders) Mother Other (Other: graves disease) Mother No Known Problems Father no contact Heart attack Maternal Grandmother other associated heart issues Basal cell carcinoma Maternal Grandmother Diabetes Maternal Grandfather Prostate cancer Maternal Grandfather Alzheimer's disease Maternal Grandfather Hyperlipidemia Maternal Grandfather Hypertension Maternal Grandfather No Known Problems Paternal Grandmother diabetes and cancer- she is doing research about this No Known Problems Paternal Grandfather Melanoma Aunt maternal Squamous cell carcinoma Aunt maternal Melanoma Other cousin Social History Socioeconomic History Marital status: Spouse name: Not on file Number of children: Not on file Years of education: Not on file Highest education level: Not on file Occupational History Not on file Tobacco Use Smoking status: Former Current packs/day: 0.00 Types: Cigarettes Quit date: 03/15/2016 Years since quittin.4 Smokeless tobacco: Never Substance and Sexual Activity Alcohol use: No Drug use: No Sexual activity: Not on file Other Topics Concern Not on file Social History Narrative 06/2016 pt arrived alone to appt for obwork up 5th Planned :YES Lives with: with souce/FOB#2 and her son almost 10yo (different FOB) Other Children: FOB #2 has a child from a previous [id number], pts almost 10yr old is from previous relationship/FOB#[address]:YES Pets:YES-3 dogs 1 cat 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 Was i nitially shocked but now happy. Pt lives with spouce and children. 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 Ethic background above. Past Surgical History: Procedure Laterality Date ADENOIDECTOMY PROCEDURE: HISTORICAL ADENOIDECTOMY APPENDECTOMY PROCEDURE: HISTORICAL APPENDECTOMY ESOPHAGOGASTRODUODENOSCOPY 03/29/15 PROCEDURE: [place] EGD TRANSORAL BIOPSY SINGLE/MULTIPLE; COMMENT: mild distal esophagitis, antritis and duodenitis. bxs of all - bx all negative OTHER SURGICAL HISTORY PROCEDURE: REMOVAL OF TMJ CONDYLE TONSILLECTOMY PROCEDURE: HISTORICAL TONSILLECTOMY Current Outpatient Medications: amphetamine-dextroamphetamine (ADDERALL) 10 mg tablet, Take 1 tablet (10 mg total) by mouth 2 (two)times a day., Disp: , Rfl: baclofen (LIORESAL) 10 mg tablet, Take 1 tablet (10 mg total) by mouth 3 (three) times a day., Disp: , Rfl: desoximetasone (TOPICORT) 0.05 % cream, Apply topically 2 (two) times a day., Disp: , Rfl: diazePAM (VALIUM) 2 mg tablet, Take 1 tablet (2 mg total) by mouth every 8 (eight) hours if needed for anxiety. Max Daily Amount: 6 mg, Disp: , Rfl: DULoxetine (CYMBALTA) [address] capsule, Take 1 capsule (60 mg total) by mouth 1 (one) time each day., Disp: , Rfl: DULoxetine (Drizalma Sprinkle) 30 mg capsule, delayed rel sprinkle, Take by mouth 1 (one) time eachday., Disp: , Rfl: gabapentin (NEURONTIN) 600 mg tablet, Take 1 tablet (600 mg total) by mouth 3 (three) times a day.,Disp: , Rfl: tiZANidine (ZANAFLEX) 2 mg capsule, Take 1 capsule (2 mg total) by mouth 3 (three) times a day., Disp: , Rfl: busPIRone (BUSPAR) 15 mg tablet, Take 1 tablet (15 mg total) by mouth 3 (three) times a day., Disp:, Rfl: colchicine (COLCRYS) 0.6 mg tablet, Take 1 tablet (0.6 mg total) by mouth 1 (one) time each day., Disp: , Rfl: dextroamphetamine/amphetamine (ADDERALL ORAL), Take 5 mg by mouth daily as needed., Disp: , Rfl: LORazepam (ATIVAN) 1 mg tablet, Take 1 tablet (1 mg total) by mouth., Disp: , Rfl: METHYLPREDNISOLONE ORAL, Take by mouth., Disp: , Rfl: naproxen (NAPROSYN) 500 mg tablet, Take 1 tablet (500 mg total) by mouth 2 (two) times a day with meals., Disp: , Rfl: tacrolimus (ENVARSUS XR) 0.75 mg extended release tablet, Take 0.14 mg/kg by mouth 1 (one) time each day., Disp: , Rfl: Allergies Allergen Reactions Adhesive Tape-Silicones Rash localized Erythromycin Rash Iodinated Contrast Media Latex Rash Localized;Pt reports latex sensitivity, gets rash with use Other Other (No Interaction Warnings)-Blood product alert: patient with IgA deficiency PHYSICAL EXAM: Security Field Supervisor present during exam Weight: Wt Readings from Last 1 Encounters: 08/27/24 63.6 kg (140 lb 3.2 oz) BMI: BMI Readings from Last 1 Encounters: 08/27/24 22.98 kg/m?? Visit Vitals BP 107/64 Pulse 70 Ht 1.664 m (65.5 ) Wt 63.6 kg (140 lb 3.2 oz) BMI 22.98 kg/m?? Smoking Status Former BSA 1.71 m?? Grade 2 abdominal pannus, Pannus hangs to vagina Stigmata of intertrigo along infra pannicular crease Mild odor noted emanating from infra Panicular crease Laparoscopic scars noted on abdomen Lipodystrophy noted Abdomen flanks axilla No palpable hernia Suprapubic skin laxity notice with lipodystrophy focally in the mons area Lower back with tattoo Labia minora evaluated, asymmetrical APPEARANCE: Normal EYES: Pupils, conjunctiva and sclera normal. EARS: normal MOUTH/THROAT: normal without lesions NECK: Neck supple LUNG: no acute respiratory distress LYMPH NODES: grossly normal ABDOMEN: soft and non-tender NEURO: Awake, alert and oriented x 3; cranial nerves II-XII grossly intact PSYCHIATRIC: Mood and affect are normal MUSCULOSKELETAL: normal SKIN: as noted above LABS / PATHOLOGY: IMAGING: IMPRESSION: 1. Abdominal pannus 2. Intertrigo 3. Abrasion of labia minora, sequela 4. IgA deficiency (CMS/HCC V24, CMS/HCC V28) PLAN: 1. 34 y.o. female with grade 2 abdominal pannus Discussion of the natural pathophysiology of abdominal pannus is the nidus for fungal rash. Brieflyreviewed surgical indications from an insurance standpoint for post-bariatric panniculectomy. I did discuss with patient that the abdomen is a grade 2 pannus and may or may not meet insurance requirements. Patient is weight stable for 6 months. Shows evidence of a recurrent rash underneath the abdomen that has failed prescription antifungal treatments. Discussed the risks and benefits of abdominal panniculectomy. Including but not limited to skin necrosis, flap necrosis, fat necrosis, infection, seroma, hematoma, less than ideal aesthetic outcome, contour defects, and need for revision surgery. Had a steven discussion that the anterior abdomen is the only area that is addressed with the insurance based surgery. The patient's questions were encouraged and answered to their satisfaction. The patient expressed clear understanding our discussion as well as all operative and conservative managem ent plans. Also discussed the risks of labioplasty. Patient has elected to proceed with insurance review, as it is causing significant functional impairment. Will discuss with surgeon regarding lower back tattoo removal Will discuss with Dr. Albarran. documented in this encounter Plan of Treatment Upcoming Encounters Date Type Department Care Team (Latest Contact Info) Description 10/16/2024 7:30 AM EDT Hospital Encounter [facility] [place] [address] [place] [phone] Avel Albarran DO [address] [place] [address] 10/16/2024 7:30 AM EDT - 10/16/2024 11:[address] [facility] [place] [address] [place] [phone] Avel Albarran DO [address] [place] [address] PANNICULECTOMY [[id number] (CPT )] 10/24/2024 1:30 PM EDT Office Visit Plastic & Re[facility]ive Surgery - [place] [address] [place] [phone] [place] [address] [place] [phone] 12/09/2024 1:00 PM EDT Appointment [facility] X[facility] [address] [place] [address] Scheduled Orders Name Type Priority Associated Diagnoses Orde r Schedule BMP Lab Routine Abdominal pannus Abrasion of labia minora, sequela 1 Occurrences starting 10/02/2024 until 10/02/2025 ECG 12 lead - Procedural (No Charge) ECG Routine Abdominal pannus Abrasion of labia minora, sequela 1 Occurrences starting 10/02/2024 until 10/02/2025 Activated partial thromboplastin time Lab Routine Abdominal pannus Abrasion of labia minora, sequela 1 Occurrences starting 10/02/2024 until 10/02/2025 Prothrombin time with INR Lab Routine Abdominal pannus Abrasion of labia minora, sequela 1 Occurrences starting 10/02/2024 until 10/02/2025 Scheduled Procedures Name Priority Associated Diagnoses Date/Ti me PANNICULECTOMY Abdominal pannus Erythema intertrigo 10/16/2024 7:30 AM EDT LABIAPLASTY Abdominal pannus Erythema intertrigo 10/16/2024 7:30 AM EDT PANNICULECTOMY Abdominal pannus Intertrigo Abrasion of labia minora, sequela LABIAPLASTY Abdominal pannus Intertrigo Abrasion of labia minora, sequela documented as of this encounter Visit Diagnoses Diagnosis Abdominal pannus- Primary Intertrigo Other specified erythematous condition Abrasion of labia minora, sequela IgA deficiency ([facility] V24, [facility] V28) Selective IgA immunodeficiency Abdominal pannus Erythema intertrigo Other specified erythematous condition documented in this encounter Historical Medications * This list may reflect changes made after this encounter. desoximetasone (TOPICORT) 0.05 % cream Apply topically 2 (two) times a day. tacrolimus (ENVARSUS XR) 0.75 mg extended release tablet Take 0.14 mg/kg by mouth 1 (one) time each day. diazePAM (VALIUM) 5 mg tablet Take 2 mg by mouth every 8 (eight) hours if needed for anxiety. tiZANidine (ZANAFLEX) 2 mg capsule Take 1 capsule (2 mg total) by mouth 4 (four) times a day. added in this encounter Orders Case Request Count Last Ordered Date First Orde red Date CASE REQUEST OPERATING ROOM 2 10/02/2024 08/27/2024 documented in this encounter Care Teams Technology Auditor Relationship Specialty Start Date End Date Jo Ann Hebert PA [address] [place] [address], [address] [place] [address] PCP - General 08/25/24 documented as of this encounter
--- NOTE | ~2024-10-12 | MR_ITS ---
CLINICAL HISTORY: S22.000A - Wedge compression fracture of unspecified thoracic vertebra, ... --- Additional Notes or Special Instructions: Subacute versus old compression fracture T10 and T11. Please evaluate for MR thoracic spine without contrast. COMPARISON: XR thoracic spine dated 09/26/24 at 10:28 EDT MR thoracic spine dated 12/14/23 at 19:44 EDT FINDINGS: Normal alignment of the anterior and posterior elements without evidence of subluxation. Mild superior endplate compression fracture of the T10 and T11 vertebral bodies with less than 20 percent height loss, similar to prior imaging performed in 2023. No associated edema or adjacent soft tissue swelling. No retropulsion into the canal. No acute fracture. Mild S shaped scoliosis. Modic type 1 degenerative endplate changes of the inferior endplate of T8 and superior endplate of T9. No abnormal signal within the normal caliber thoracic spinal cord. Mild posterior disc bulge at T9-T10 and T10-T11. There is mild neural foraminal narrowing on the left at T9-T10. Otherwise no significant degenerative changes throughout the cervical spine. The visualized paraspinal musculature and soft tissues are unremarkable. IMPRESSION: 1. No evidence of acute injury to the thoracic spine. 2. Stable chronic superior endplate compression deformities of the T10 and T11 since imaging dated 12/14/2023. 3. Mild S shaped scoliosis. 4. Mild degenerative changes in the lower thoracic spine. This document has been electronically signed by: Vijay Jo MD on 10/12/2024 15:34:26
--- OUTSIDE RECORDS SUMMARY | 2024-10-12 14:18 | XMS_ITS | Encounter Summary ---
Author Organization [facility] Address [facility] [employer] [address] [place] [address] Phone Care Team Providers Care Etl Lead Name Role Phone Glenny Dyson NP Primary Care Provider + Pcp, Unknown Primary Care Provider Unavailabl e Pcp, Unknown Primary Care Provider Unavailindiana e Jo Ann Hebert Primary Care Provide r Encounter Details Date Type Department Care Team (Late st Contact Info) Description 03/22/2022 Procedure Pass [facility], Ct Scan - [address] [address] Social History Tobacco Use Types Packs/Day Years [...] 2:47 AM EST Kevin Luo RN * [place]ey[place] Suicide Severity Rating Scale (Screener/Recent Self-Report) Question [...] documented as of this encounter Care Teams Etl Lead Relationship Specialty Start Date End Date Glenny Dyson NP [address] [place] [address] PCP - General Nurse Practitioner 03/17/22 04/14/22 Pcp, Unknown PCP - General 04/15/22 04/11/23 Pcp, Unknown PCP - General 04/12/23 10/02/24 Jo Ann Hebert PA [address] [place] [address] PCP - General Physician Clin Application Specialist 10/03/24 documented as of this encounter Additional Source Comments The information contained in this document represents components of the legal health record. It is not the complete legal health record.[facility]
--- OUTSIDE RECORDS SUMMARY | 2024-10-12 14:18 | XMS_ITS | Encounter Summary ---
Author Organization [facility] Address [facility] [address] [place] [address] Phone Care Team Providers Care Sanitation Engineer Name Role Phone Nilda Watson Unavailable Octavio Castillo MD Primary Care Provider [phone] Octavio Castillo MD Unavailable [phone] Maryam Wu MD Primary Care Provid er Glenny Dyson NP Primary Care Provider + Juan F Gallo MD Primary Care Provider + Glenny Dyson HR RECRUITER Primary Care Provider + Pcp, Unknown Primary Care Provider Unavailabl e Pcp, Unknown Primary Care Provider Unavailabl e Jo Ann Hebert Primary Care Provide r Encounter Details Date Type Department Care Team (Late st Contact Info) Description 04/26/2020 Ancillary Orders Virtual Department [address] [place] [address] [address] [id number] viral [email or web address] Social History Tobacco Use Types [...] documented as of this encounter Care Teams Sanitation Engineer Relationship Specialty Start Date End Date Nilda Watson PA [address] [place] [address] [email or web address] PCP - Resident PCP 04/11/19 07/14/21 Octavio Castillo MD [address] [place] [address], [address] [place] [address] [email or web address] PCP - General Internal Medicine 07/10/19 07/14/21 Maryam Wu MD [address] [place] [address] [place] [id number] [email or web address] PCP - General Family Medicine 07/15/21 03/05/22 Glenny Dyson NP [address] [place] [address] PCP - General Nurse Practitioner 03/06/22 03/15/22 Juan F Gallo MD [address] [place] [address] PCP - General Internal Medicine 03/16/22 03/16/22 Gl[place] [address] PCP - General Nurse Practitioner 03/17/22 04/14/22 Pcp, Unknown PCP - General 04/15/22 04/11/23 Pcp, Unknown PCP - General 04/12/23 10/02/24 Jo Ann Hebert PA [address] [place] [address] PCP - General Physician Central Sterile Supply Technician 10/03/24 Octavio Castillo MD [address] [place] [address], [address] [place] [address] [email or web address] Insurance Assigned Provider 08/18/19 11/20/20 documented as of this encounter Additional Source Comments The information contained in this document represents components of the legal health record. It is not the complete legal health record.[facility]
--- OUTSIDE RECORDS SUMMARY | 2024-10-12 14:18 | XMS_ITS | Encounter Summary ---
Author Organization [facility] Address [address] [employer] [address] [place] [address] Phone Care Team Providers Care Chronometer Repairer Name Role Phone Pcp, Unknown Primary Care Provider Jo Ann Mg Primary Care Provide r Encounter Details Date Type Department Care Team (Late st Contact Info) Description 04/12/2023 Procedure Pass [facility], Ct Scan - [facility] [address] [place] [address] Social History Tobacco Use Types Packs/Day Years [...] 04/12/2023 9:23 PM Lucille Shah RN * Corinne Suicide Severity Rating Scale (Screener/Recent Self-Report) Question [...] documented as of this encounter Care Teams Chronometer Repairer Relationship Specialty Start Date End Date Pcp, Unknown PCP - General 04/12/23 10/02/24 Jo Ann Hebert PA [address] [place] [address] [place] [address] PCP - General Physician Gum Machine Operator 10/03/24 documented as of this encounter Additional Source Comments The information contained in this document represents components of the legal health record. It is not the complete legal health record.[facility]
--- OUTSIDE RECORDS SUMMARY | 2024-10-12 14:18 | XMS_ITS | Clinical Summary ---
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 Abdominal pannus 08/27/2024 Intertrigo 08/27/2024 Abrasion of labia minora 08/27/2024 Erythema intertrigo 08/27/2024 Morbid obesity with BMI of 4 0.0-44.9, adult ([facility] V24, [facility] V28) 11/23/2023 Allergic conjunctivitis of both eyes 06/19/2019 Perennial allergic rhinitis 06/19/2019 Arthralgia 04/09/2019 Lower abdominal pain 04/09/2019 IgA deficiency ([facility] V24, [facility]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 Melanoma in situ ([facility] V24, [facility] V28) 03/2018 Nevus 08/12/2018 Insulin controlled gestation [...] EDT Consult Plastic & Reconstructive Surgery - [place] [address] [facility] [address] [place] [address] Arturo Albarran DO Abdominal pannus (Primary Dx) 09/30/2024 Telephone [facility] [address] [facility] [address] [place] [phone] Arturo Albarran DO 08/29/2024 Telephone [facility] Surgery [facility] [address] [facility] [address] [place] [phone] Arturo Albarran DO 08/27/2024 11:00 AM EDT Consult Plastic & Reconstructive Surgery [facility] [address] [facility] [address] [place] [address] [place] Abdominal pannus (Primary Dx); Intertrigo; Abrasion of labia minora, sequela; IgA deficiency (CMS/HCC V24, [facility] V28) from Last 3 Months Immunizations Name [...] Description 10/16/2024 7:30 AM EDT Hospital Encounter [facility] OR [address] [place] [phone] Arturo Albarran DO [address] [place] [address] 10/16/2024 7:30 AM EDT - 10/16/2024 11:00 AM EDT Surgery [address] [phone] Arturo Albarran DO [address] [place] [address] PANNICULECTOMY [[id number] (CPT )] 10/24/2024 1:30 PM EDT Office Visit [facility] - [place] [address] [place] [address] [place] [facility] [place] [address] 12/09/2024 1:00 PM EDT Appointment [facility] Xray [address] [place] [address] Scheduled Procedures Name Priority Associated [...] * HIV Screening (06/14/2017) HIV Screening abstracted Historical Provider HEALTH MAINTENANCE Final Result * Pap smear (06/13/2017) 06/13/2017 Narrative HISTORICAL TESTING LAB RESULTING AGENCY - 06/20/2017 4:55 PM EDT [id number] THINPREP PAP, IMAGED AND CELL BLOCK: NEGATIVE [...] Most Recently Relevant to Health Maintenance Insurance [facility] MEDICAID - [place] Care Teams Sawmill Worker Relationship Specialty Start Date End Date Jo Ann Hebert PA [address] [place] [address], [address] [place] [address] PCP - General 08/25/24
--- OUTSIDE RECORDS SUMMARY | 2024-10-12 14:18 | XMS_ITS | Encounter Summary ---
Author Organization [facility] Address [address] [place] [address] Care Team Providers Care Dental Insurance Coordinator Name Role Phone Ana Cortez Primary Care Provider [phone] Encounter Details Date Type Department Care Team (Late st Contact Info) Description 08/11/2022 Orders Only [facility] [address] [place] [address] Brenda Willard, DO [address] [place], [place] [phone] Social History Tobacco Use Types Packs/Day Years [...] on filedocumented in this encounter Care Teams Dental Insurance Coordinator Relationship Specialty Start Date End Date Ana Cortez [address] [place] [address] PCP - General 04/10/23 documented as of this encounter
--- OUTSIDE RECORDS SUMMARY | 2024-10-12 14:18 | XMS_ITS | Encounter Summary ---
Author Organization [facility] Address [facility] [place] [facility] [address] [place] [address] Phone Care Team Providers Care Annealing Furnace Tender Name Role Phone Glenny Dyson NP Primary Care Provider + Pcp, Unknown Primary Care Provider Unavailabl e Pcp, Unknown Primary Care Provider Unavailabl e Jo Ann Hebert Primary Care Provide r Encounter Details Date Type Department Care Team (Late st Contact Info) Description 03/17/2022 Procedure Pass [facility] Admitting Dept Virtual Department [address] [place] [address] Social History Tobacco Use Types Packs/Day Years [...] documented as of this encounter Care Teams Annealing Furnace Tender Relationship Specialty Start Date End Date Glenny Dyson NP [address] [place] [address] PCP - General Nurse Practitioner 03/17/22 04/14/22 Pcp, Unknown PCP - General 04/15/22 04/11/23 Pcp, Unknown PCP - General 04/12/23 10/02/24 Jo Ann Hebert PA [address] [place] [address] PCP - General Physician Wage And Hour Investigator 10/03/24 documented as of this encounter Additional Source Comments The information contained in this document represents components of the legal health record. It is not the complete legal health record.[facility]
--- OUTSIDE RECORDS SUMMARY | 2024-10-12 14:18 | XMS_ITS | Clinical Summary ---
Author Organization [facility] Address [address] [place] [address] Care Team Providers Care Bilingual Social Worker Name Role Phone Ana Cortez Primary Care [...] Assessment & Plan: Will be scheduled with [facility] GI. Saw Dr. Reyes who [...] Insurance [employer] Care Teams Bilingual Social Worker Relationship Specialty Start Date End Date Ana oCrtez [address] [place] [address] PCP - General 04/10/23
--- OUTSIDE RECORDS SUMMARY | 2024-10-12 14:18 | XMS_ITS | Clinical Summary ---
Author Organization [facility] Address [facility] [employer] [address] [address] Phone Care Team Providers Care Second Rigger Name Role Phone Jo Ann Hebert Primary [...] 4 tablet, 0 Refills, Maintenance, 03/06/22 14:34:00 [id number], Partial fill upon patient request if the [...] Conservative therapy not effective. Patient noting decreased sales specialist strength and progressive pain. -will refer to [...] 9:20 AM EDT): Will be scheduled with [facility] GI. Saw Dr. Reyes who recommended work [...] (04/20/2019 2:05 PM EDT): Possible GI vs VALIDATION ANALYST etiology. S/p appendectomy-possible adhesion formation, endometriosis. -will obtain CT abdomen/pelvis. Has not had one since onset of pain -urgent referral to VALIDATION ANALYST to discuss pain/recent u/s with possible retained [...] 2017. She would like referral to new rn homecare given her recent bad experience with criss [...] topic Medical Devices Not on file [place] [address] [place] [address] [place] [address] [place] [address] [place] [address] [place] [address] [place] [address] [place] [address] [facility] ACO [facility] ACO Care Teams Second Rigger Relationship Specialty Start Date End Date Jo Ann Hebert PA [address] [place] [address] [place] [address] PCP - General Physician Economics Teacher 10/03/24 Additional Source Comments The information contained in this document represents components of the legal health record. It is not the complete legal health record.[facility]
--- OUTSIDE RECORDS SUMMARY | 2024-10-12 14:18 | XMS_ITS | Encounter Summary ---
Author Organization [facility] Address [facility] [employer] [address] [place] [address] Phone Care Team Providers Care Gas Distribution And Emergency Clerk Name Role Phone Pcp, Unknown Primary Care Provider Unavailabl e Pcp, Unknown Primary Care Provider Unavailabl e Jo Ann Hebert Primary Care Provide r Encounter Details Date Type Department Care Team (Late st Contact Info) Description 04/15/2022 Procedure Pass [facility], Ct Scan - [address] [address] Social History Tobacco Use Types Packs/Day Years [...] 04/15/2022 7:37 PM Glenny Brothers RN * [place] Suicide Severity Rating Scale (Screener/Recent Self-Report) Question [...] documented as of this encounter Care Teams Gas Distribution And Emergency Clerk Relationship Specialty Start Date End Date Pcp, Unknown PCP - General 04/15/22 04/11/23 Pcp, Unknown PCP - General 04/12/23 10/02/24 Jo Ann Hebert PA [address] [place] [address] [place] [address] PCP - General Physician Maintenance Supervisor 10/03/24 documented as of this encounter Additional Source Comments The information contained in this document represents components of the legal health record. It is not the complete legal health record.[facility]
--- OUTSIDE RECORDS SUMMARY | 2024-10-12 14:18 | XMS_ITS | Clinical Summary ---
Author Organization [facility] Address [address] [place] [address] Care Team Providers Care Logger Driving Horses Name Role Phone Ana Cortez NP Primary Care Provider [phone] Allergies Active Allergy Reactions Criticality Noted Date [...] age to complete this topic Care Teams Logger Driving Horses Relationship Specialty Start Date End Date Ana Cortez NP [address] [address] PCP - General Family Medicine 09/21/22
== END 2024-10-12 14:09 | disposition home or self-care (01) ==
LOC: HO.MRI 14:08
PROVIDERS: Visit Provider Internal Medicine Rheumatology
DX: S22.070A Wedge compression fracture of T9-T10 vertebra, initial encounter for closed fracture (principal); S22.080A Wedge compression fracture of T11-T12 vertebra, initial encounter for closed fracture
CPT/HCPCS: 72146

== ENCOUNTER 2024-10-21 12:30 | Outpatient (AMB) | payer OTHER, SELFPAY ==
--- OUTSIDE RECORDS SUMMARY | 2024-10-16 06:15 | XMS_ITS | Encounter Summary ---
Author Organization [facility] Address [address] [place] [address] Care Team Providers Care Bilingual Branch Manager Name Role Phone Jo Ann Hebert Primary Care Provider [phone] Reason for Visit * Auth/Cert (Routine) Specialty Diagnoses / Procedures Referred By Contac t Referred To Contact Diagnoses Abdominal pannus Erythema intertrigo Abdominal pannus [E65], intertrigo Procedures OR EXCISION EXCESSIVE SKIN SUBQ TISSUE ABD INFRAUMBILICAL PANNICULECTOMY OR EXCISION EXCESSIVE SKIN/SUBCUTANEOUS TISSUE OTHER AREA PANNICULECTOMY LABIAPLASTY Arturo Albarran DO [address] [place] [address] Phone: tel: fax: Referral ID Status Reason Start Date Expiration Date Visits Re quested Visits Authorized [id number] 08/27/2024 1 1 Encounter Details Date Type Department Care Team (Latest Contact Info) Description 10/16/2024 6:15 AM EDT - 10/16/2024 2:26 PM EDT Hospital Encounter [facility] Main OR [address] [place] [phone] Arturo Albarran DO [address] [place] [address] Abdominal pannus; Abrasion of labia minora, sequela; Erythema intertrigo Discharge Disposition: Home or Self Care Social History Tobacco Use Types Packs/Day Years Used Date Smoking Tobacco: Former Cigarettes Q uit: 03/15/2016 Smokeless Tobacco: Never Alcohol Use Standard Drinks/Week Comments No 0 (1 standard drink = 0.6 oz pur e alcohol) Interpersonal Safety Answer Date Record ed Physical Abuse 10/16/2024 Verbal Abuse 10/16/2024 Comments No Sex and Gender Information Value Date Recorded Sex Assigned at Not on file Legal Sex Female 8:54 PM EST Gender Identity Not on file Sexual Orientation Not on file documented as of this encounter Last Filed Vital Signs Vital Sign Reading Time Taken Comments Blood Pressure 136/81 10/16/2024 12:04 PM EDT Pulse 55 10/16/2024 12:04 PM EDT Temperature 36.4 C (97.5 F) 10/16/2024 12:04 PM EDT Respiratory Rate 20 10/16/2024 12:04 PM EDT Oxygen Saturation 100% 10/16/2024 12:04 PM EDT Inhaled Oxygen Concentration - - Weight 63 kg (139 lb) 10/16/2024 6:53 AM EDT Height 160 cm (5' 3 ) 10/16/2024 6:53 AM EDT Body Mass Index 24.62 10/16/2024 6:53 AM EDT documented in this encounter Discharge Summaries * ALONSO Thorpe - 10/16/2024 10:23 AM EDT DISCHARGE SUMMARY Patient: Marie Pandya : 1990 (34 y.o. female) Admit Date: 10/16/2024 Discharge Date: 10/16/2024 Location: [facility] MAIN OR Pool Room/M* Dictating Provider: ALONSO Thorpe Attending Physician: Arturo Albarran DO Primary Care Provider: LAONSO Triplett Discharge Disposition: Stable Primary Diagnosis: Principal Problem: Abdominal pannus Active Problems: Erythema intertrigo Secondary Diagnoses: Patient Active Problem List Diagnosis Allergic conjunctivitis of both eyes Arthralgia Asthma IgA deficiency ([facility] V24, [facility] V28) Insulin controlled gestational diabetes mellitus (GDM) during , antepartum Low serum IgG2 subclass level Lower abdominal pain Melanoma in situ ([facility] V24, [facility] V28) Nevus Non-ulcer dyspepsia Perennial allergic rhinitis Rubella non-immune status, antepartum Uterine size-date discrepancy in third trimester Morbid obesity with BMI of 40.0-44.9, adult (CMS/HCC V24, [facility] V28) Abdominal pannus Intertrigo Abrasion of labia minora Behcet's disease (CMS/HCC V24, CMS/[facility] V28) Kings-Danlos disease Erythema intertrigo Procedures: Panniculectomy and right labiaplasty (Dr. Albarran, DO) Allergies: Allergies Allergen Reactions Adhesive Tape-Silicones Rash Localized-JUST ADHESIVE TAPE Erythromycin Rash Latex Rash Localized;Pt reports latex sensitivity, gets rash with use Other Other (No Interaction Warnings)-Blood product alert: patient with IgA deficiency Tylenol [Acetaminophen] Liver function tests abnormal Medications: Medications Prior to Admission Medication Sig Dispense Refill Last Dose/Taking amphetamine-dextroamphetamine (ADDERALL) 10 mg tablet Take 1 tablet (10 mg total) by mouth 1 (one) time each day. 10/15/2024 amphetamine-dextroamphetamine (ADDERALL) 20 mg tablet Take 1 tablet (20 mg total) by mouth 2 (two) times a day. Max Daily Amount: 40 mg 10/15/2024 apremilast (Otezla) 30 mg tablet Take 30 mg by mouth 2 (two) times a day. Past Month colchicine (COLCRYS) 0.6 mg tablet Take 1 tablet (0.6 mg total) by mouth 1 (one) time each day. 10/15/2024 desoximetasone (TOPICORT) 0.05 % cream Apply topically 2 (two) times a day. 10/15/2024 diazePAM (VALIUM) 5 mg tablet Take 1 tablet (5 mg total) by mouth every 8 (eight) hours if needed for anxiety. 10/16/2024 at 4:00 AM dicyclomine (BENTYL) 10 mg capsule Take 1 capsule (10 mg total) by mouth 4 (four) times a day (before meals and nightly). 10/15/2024 DULoxetine (CYMBALTA) [address] capsule Take 1 capsule (60 mg total) by mouth 1 (one) time each day.10/15/2024 DULoxetine (Drizalma Sprinkle) 30 mg capsule, delayed rel sprinkle Take by mouth 1 (one) time each day. 10/15/2024 gabapentin (NEURONTIN) 600 mg tablet Take 1 tablet (600 mg total) by mouth 3 (three) times a day. 10/15/2024 nabumetone (RELAFEN) 500 mg tablet Take 1 tablet (500 mg total) by mouth 2 (two) times a day. 10/10/2024 oxyCODONE (ROXICODONE) 10 mg immediate release tablet Take 1 tablet (10 mg total) by mouth 3 (three) times a day if needed for severe pain. 10/16/2024 at 4:00 AM tacrolimus (PROTOPIC) 0.1 % ointment Apply topically 2 (two) times a day. 10/15/2024 tiZANidine (ZANAFLEX) 2 mg capsule Take 1 capsule (2 mg total) by mouth 4 (four) times a day. 1-2 CAPSULES 10/16/2024 at 4:00 AM cephalexin (KEFLEX) 500 mg capsule Take 1 capsule (500 mg total) by mouth 4 (four) times a day for 14 days. 56 each 0 docusate sodium (COLACE) 100 mg capsule Take 1 capsule (100 mg total) by mouth 2 (two) times a day for 10 days. 20 each 0 [] ondansetron (ZOFRAN) 4 mg tablet Take 1 tablet (4 mg total) by mouth every 8 (eight) hours if needed for nausea or vomiting for up to 7 days. 20 tablet 0 oxyCODONE (ROXICODONE) 5 mg immediate release tablet Take 1 tablet (5 mg total) by mouth every 4 (four) hours if needed for severe pain for up to 10 days. Max Daily Amount: 30 mg 40 each 0 Your medication list CONTINUE taking these medications Instructions Last Dose Given Next Dose Due amphetamine-dextroamphetamine 20 mg tablet Commonly known as: ADDERALL Take 1 tablet (20 mg total) by mouth 2 (two) times a day. Max Daily Amount: 40 mg amphetamine-dextroamphetamine 10 mg tablet Commonly known as: ADDERALL Take 1 tablet (10 mg total) by mouth 1 (one) time each day. cephalexin 500 mg capsule Commonly known as: KEFLEX Take 1 capsule (500 mg total) by mouth 4 (four) times a day for 14 days. colchicine 0.6 mg tablet Commonly known as: COLCRYS Take 1 tablet (0.6 mg total) by mouth 1 (one) time each day. desoximetasone 0.05 % cream Commonly known as: TOPICORT Apply topically 2 (two) times a day. diazePAM 5 mg tablet Commonly known as: VALIUM Take 1 tablet (5 mg total) by mouth every 8 (eight) hours if needed for anxiety. dicyclomine 10 mg capsule Commonly known as: BENTYL Take 1 capsule (10 mg total) by mouth 4 (four) times a day (before meals and nightly). docusate sodium 100 mg capsule Commonly known as: COLACE Take 1 capsule (100 mg total) by mouth 2 (two) times a day for 10 days. Drizalma Sprinkle 30 mg capsule, delayed rel sprinkle Generic drug: DULoxetine Take by mouth 1 (one) time each day. DULoxetine [address] capsule Commonly known as: CYMBALTA Take 1 capsule (60 mg total) by mouth 1 (one) time each day. gabapentin 600 mg tablet Commonly known as: NEURONTIN Take 1 tablet (600 mg total) by mouth 3 (three) times a day. nabumetone 500 mg tablet Commonly known as: RELAFEN Take 1 tablet (500 mg total) by mouth 2 (two) times a day. Otezla 30 mg tablet Generic drug: apremilast Take 30 mg by mouth 2 (two) times a day. oxyCODONE 10 mg immediate release tablet Commonly known as: ROXICODONE Take 1 tablet (10 mg total) by mouth 3 (three) times a day if needed for severe pain. oxyCODONE 5 mg immediate release tablet Commonly known as: ROXICODONE Take 1 tablet (5 mg total) by mouth every 4 (four) hours if needed for severe pain for up to 10 days. Max Daily Amount: 30 mg tacrolimus 0.1 % ointment Commonly known as: PROTOPIC Apply topically 2 (two) times a day. tiZANidine 2 mg capsule Commonly known as: ZANAFLEX Take 1 capsule (2 mg total) by mouth 4 (four) times a day. 1-2 CAPSULES ASK your doctor about these medications Instructions Last Dose Given Next Dose Due ondansetron 4 mg tablet Commonly known as: ZOFRAN Ask about: Should I take this medication? Take 1 tablet (4 mg total) by mouth every 8 (eight) hours if needed for nausea or vomiting for up to 7 days. Hospital Course: Past Medical History: Past Medical History: Diagnosis Date Bradycardia DJD (degenerative joint disease) Family history of hyperthyroidism 01/20/2019 DX:Family history of hyperthyroidism Fibromyalgia History of migraine DX:History of migraine Obesity DX:Obesity Past Surgical History: Past Surgical History: Procedure Laterality Date ADENOIDECTOMY PROCEDURE: HISTORICAL ADENOIDECTOMY APPENDECTOMY PROCEDURE: HISTORICAL APPENDECTOMY CHOLECYSTECTOMY ESOPHAGOGASTRODUODENOSCOPY 03/29/15 PROCEDURE: OR EGD TRANSORAL BIOPSY SINGLE/MULTIPLE; COMMENT: mild distal esophagitis, antritis and duodenitis. bxs of all - bx all negative OTHER SURGICAL HISTORY PROCEDURE: REMOVAL OF TMJ CONDYLE TONSILLECTOMY PROCEDURE: HISTORICAL TONSILLECTOMY HPI: (obtained from History & Physical on admission) In chart Hospital Course: Uneventful Discharge Instructions: In AVS New Orders: Orders Placed This Encounter Procedures BMP Activated partial thromboplastin time Prothrombin time with INR Place sequential compression device Vital Signs (specify frequency) Pulse Oximetry Maintain IV access Full code - Default POC , urine manually resulted Insert peripheral IV Saline lock IV Discharge patient Tissue exam Follow-up Referrals: With plastic surgery team next week Time Spent with Patient: Less than 30 minutes Condition on Discharge: Stable documented in this encounter Discharge Instructions * Discharge Instructions* ALONSO Thorpe - 10/16/2024 10:28 AM EDT PANNICULECTOMY AND LABIAPLASTY POST-OP INSTRUCTIONS Get plenty of rest following your surgery Sleep with two pillows elevating your head and 1-2 pillows under your knees. Wear your abdominal binder at all times for 4 weeks Wear a sanitary pad for the next week until seen in the office. Change daily or several times dailyif needed. Apply ointment (vaseline or aquaphor) application to the labial area twice daily Keep the area as clean as possible after urination and bowel movements. Avoid vigorous activity Take antibiotics as prescribed- [...] 4 weeks. When to call the office ([phone]) If you have increased swelling and redness [...] 4 5 6 7 AM PM Total IF YOUR DRAIN IS CLOGGED: Do not panic! A clogged drain is common, and there is a technique called stripping the drain thatresolves the issue. To strip the drain: Wash your hands Pinch the tubing near the insertion site (body) to prevent pulling, then use your other hand to pinch and slide a finger down the tubing TOWARDS the bulb to dislodge the blockage. Release the tubing near the body, so the fluid moves toward the bulb Repeat multiple times down towards the bulb to remove debris There is a helpful Youtube video that instructs you how to do this. Go on Youtube and search DRAINCARE 101: How to UNCLOG your postoperative surgical drain If you are unsuccessful, but the other drain is working well, we can take care of this in the office. It is not an emergency. * Attachments The following attachments cannot be sent through Care Everywhere. * General Anesthesia (Israeli) * Panniculectomy: Post op (Israeli) * Surgical Drain Care (Israeli) documented in this encounter Medications at Time of Discharge amphetamine-dext roamphetamine (ADDERALL) 10 mg tablet Take 1 tablet (10 mg total) by mouth 1 (one) time each day. amphetamine-dext roamphetamine (ADDERALL) 20 mg tablet Take 1 tablet (20 mg total) by mouth 2 (two) times a day. Max Daily Amount: 40 mg apremilast (Otezla) 30 mg tablet Take 30 mg by mouth 2 (two) times a day. colchicine (COLCRYS) 0.6 mg tablet Take 1 tablet (0.6 mg total) by mouth 1 (one) time each day. desoximetasone (TOPICORT) 0.05 % cream Apply topically 2 (two) times a day. diazePAM (VALIUM) 5 mg tablet Take 1 tablet (5 mg total) by mouth every 8 (eight) hours if needed for anxiety. dicyclomine (BENTYL) 10 mg capsule Take 1 capsule (10 mg total) by mouth 4 (four) times a day (before meals and nightly). DULoxetine (CYMBALTA) [address] capsule Take 1 capsule (60 mg total) by mouth 1 (one) time each day. DULoxetine (Drizalma Sprinkle) 30 mg capsule, delayed rel sprinkle Take by mouth 1 (one) time each day. gabapentin (NEURONTIN) 600 mg tablet Take 1 tablet (600 mg total) by mouth 3 (three) times a day. nabumetone (RELAFEN) 500 mg tablet Take 1 tablet (500 mg total) by mouth 2 (two) times a day. oxyCODONE (ROXICODONE) 10 mg immediate release tablet Take 1 tablet (10 mg total) by mouth 3 (three) times a day if needed for severe pain. tacrolimus (PROTOPIC) 0.1 % ointment Apply topically 2 (two) times a day. tiZANidine (ZANAFLEX) 2 mg capsule Take 1 capsule (2 mg total) by mouth 4 (four) times a day. 1-2 CAPSULES cephalexin (KEFLEX) 500 mg capsule Take 1 capsule (500 mg total) by mouth 4 (four) times a day for 14 days. 56 each 10/06/2024 5 docusate sodium (COLACE) 100 mg capsule Take 1 capsule (100 mg total) by mouth 2 (two) times a day for 10 days. 20 each 10/06/2024 5 oxyCODONE (ROXICODONE) 5 mg immediate release tabletIndication s:Abdominal pannus Take 1 tablet (5 mg total) by mouth every 4 (four) hours if needed for severe pain for up to 10 days. Max Daily Amount: 30 mg 40 each 10/06/2024 5 documented as of this encounter Discharge Disposition Disposition Code Departure Means Destination Comment s Home or Self Care Wheelchair Home documented in this encounter H&P Notes * Arturo Albarran DO - 10/16/2024 7:30 AM EDT No changes to h p Source Note - Arturo Albarran DO - 10/06/2024 11:00 AM EDT Images from the original note were not included. PATIENT: Marie Pandya ENCOUNTER: 10/08/2024 EMRN: [id number] : 1990 CHIEF COMPLAINT: Pre-op Exam (Panniculectomy) The patient was given the opportunity to have a plaster model and mold maker present during a sensitive examination at today's visit. She accepted this offer of a plaster model and mold maker. HPI: This 34 y.o. female presents for further discussion of potential panniculectomy. She states her medical history is unchanged. She presents in a wheelchair but can she walk short distances and stand. 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 And she is aware of the risks with skin reduction surgery and the poor scarring. She also expresses that her labia are still large and she would like to have them removed. She does understand that the insurance submission is still pending as the the CPT code needed to be changed. She understands we may or may not be able to proceed with labioplasty at the same time. Depending on insurance approval. She states she has a lot of help at home. She is a non-smoker nondiabetic she is not overweight with a BMI of 24. She has a carries a diagnosis ofIgA deficiency, Bechet's disease, and Kings danlos ROS: CONSTITUTIONAL: no malaise, no significant weight [...] cold intolerance HEMATOLOGIC: no excessive bleeding MUSCULOSKELETAL: INTEGUMENTARY: Redundant skin lower abdomen as well as labial hypertrophy on the right only PAST MEDICAL HISTORY: Patient Active Problem List Diagnosis Allergic conjunctivitis of both eyes Arthralgia Asthma IgA deficiency ([facility] V24, [facility] V28) Insulin controlled gestational diabetes mellitus (GDM) during , antepartum Low serum IgG2 subclass level Lower abdominal pain Melanoma in situ ([facility] V24, [facility] V28) Nevus Non-ulcer dyspepsia Perennial allergic rhinitis Rubella non-immune status, antepartum Uterine size-date discrepancy in third trimester Morbid obesity with BMI of 40.0-44.9, adult ([facility] V24, [facility] V28) Abdominal pannus Intertrigo Abrasion of labia minora PAST SURGICAL HISTORY: Past Surgical History: Procedure Laterality Date ADENOIDECTOMY PROCEDURE: HISTORICAL ADENOIDECTOMY APPENDECTOMY PROCEDURE: HISTORICAL APPENDECTOMY CHOLECYSTECTOMY ESOPHAGOGASTRODUODENOSCOPY 03/29/15 PROCEDURE: OR EGD TRANSORAL BIOPSY SINGLE/MULTIPLE; COMMENT: mild distal esophagitis, antritis and duodenitis. bxs of all - bx all negative OTHER SURGICAL HISTORY PROCEDURE: REMOVAL OF TMJ CONDYLE TONSILLECTOMY PROCEDURE: HISTORICAL TONSILLECTOMY SOCIAL HISTORY: Social History Tobacco Use Smoking status: Former Current packs/day: 0.00 Types: Cigarettes Quit date: 03/15/2016 Years since quittin.5 Smokeless tobacco: Never Substance Use Topics Alcohol use: No Drug use: No FAMILY HISTORY: Family History Problem Relation Name Age of [...] cell carcinoma Aunt maternal Melanoma Other cousin I have reviewed the following sections of the chart: Past medical history, surgical history, socialhistory and family history via records and directly with the patient. MEDICATIONS: No outpatient medications have been marked as taking for the 10/06/24 encounter (Consult) with Delia Albarran DO. ALLERGIES: Allergies Allergen Reactions Adhesive Tape-Silicones Rash localized Erythromycin Rash Latex Rash Localized;Pt reports latex sensitivity, gets rash with use Other Other (No Interaction Warnings)-Blood product alert: patient with IgA deficiency Tylenol [Acetaminophen] Liver function tests abnormal PHYSICAL EXAM: Visit Vitals BP 117/69 Pulse 73 Ht 1.6 m (63 ) Wt 63.4 kg (139 lb 12.8 oz) BMI 24.76 kg/m?? Smoking Status Former BSA 1.66 m?? APPEARANCE: Normal EYES: Pupils, conjunctiva and sclera normal. EARS: normal MOUTH/THROAT: normal without lesions NECK: Neck supple, no adenopathy HEART: RRR with no murmurs appreciated LUNG: clear to auscultation LYMPH NODES: grossly normal ABDOMEN: soft and non-tender NEURO: Awake, alert and oriented x 3; cranial nerves II-XII grossly intact PSYCHIATRIC: Mood and affect are normal MUSCULOSKELETAL: normal, SKIN: as noted above, Grade 2 abdominal pannus, Pannus hangs to vagina Stigmata of intertrigo along infra pannicular crease Mild odor noted emanating from infra Panicular crease Laparoscopic scars noted on abdomen Lipodystrophy noted Abdomen flanks axilla No palpable hernia Suprapubic skin laxity notice with lipodystrophy focally in the mons area Lower back with tattoo Labia minora significantly larger on the right. Hypertrophy on the right only LABS / PATHOLOGY: Primary care provider's note reviewed. IMAGING: No new imaging to review. IMPRESSION: 1. Abdominal pannus PLAN: 1. 34 y.o. female with abdominal pannus, intertrigo, right labia minora hypertrophy Discussion of the natural pathophysiology of abdominal pannus is the nidus for fungal infections. And that treatment is panniculectomy surgically. Regarding her labia of the right labia minora is significantly larger resulting in pain with intercourse pain with activities difficulty with hygiene and pinching and pain with walking. We discussed a wedge resection of the right in order to reduce thesize to make it more symmetrical to the left and hopefully alleviate her symptoms Discussed the risks and benefits of panniculectomy Including but not limited to flap necrosis fat necrosis hematoma and seroma need for revision procedures poor scarring diminished sensation of her abdomen and a incisional skin. Also discussed that this is insurance based surgery and done for medical reasons. No anesthetic or cosmetic concerns will be addressed during the surgery. The overall appearance of her abdomen and how she feels about her abdomen and contour are not addressed during the surgery. This was expressed repeatedly and the patient expressed clear understanding of this being amedical surgery. Regarding the labioplasty/partial vulvectomy we discussed sensation changes including potential clitoris desensitization resulting in inability to achieve climax. Infection seroma hematoma wound dehiscence need for revision surgeries and in general pain with intercourse and less than ideal aesthetic outcome. The patient's questions were encouraged and answered to their satisfaction. The patient expressed clear understanding our discussion as well as all operative and conservative management plans. After hearing all of the risks and benefits, she has elected to proceed with panniculectomy, and labioplasty pending insurance approval. Has been resubmitted with expediency. We will decide the day of surgery if she has insurance approval whether not to proceed with labioplasty on this occasion Postoperative meds ordered and sent to her pharmacy Postop instructions ordered Surgical consent signed We will proceed Acceptable sugical candidate Arturo Albarran DO. FACOS [facility] Laser [facility] A Member of [facility] W [phone] F [phone] [place] [address] [email or web address]: Ritu Muñoz PA documented in this encounter Procedure Notes * Jayashree Frances RN - 10/16/2024 2:[address] Albarran in to see patient. * Jayashree Frances RN - 10/16/2024 12:38 PM EDT Patient voided in bathroom. Mesh underwear had to be removed and reapplied because they were place under abdominal binders. No labial edema noted. Minimal bloody drainage. * Arturo Albarran DO - 10/16/2024 8:14 AM EDT OPERATIVE NOTE Date: 10/16/2024 Name: Marie Pandya : 1990 Preoperative Diagnosis: Pre-Op Diagnosis Codes: * Abdominal pannus [E65] * Erythema intertrigo [L30.4] Right labial hypertrophy Postoperative Diagnosis: Post-op Diagnosis * Abdominal pannus [E65] * Erythema intertrigo [L30.4] Right labial hypertrophy Procedures: PANNICULECTOMY 08084 - OR EXCISION EXCESSIVE SKIN SUBQ TISSUE ABD INFRAUMBILICAL PANNICULECTOMY LABIAPLASTY 23614 - OR EXCISION EXCESSIVE SKIN/SUBCUTANEOUS TISSUE OTHER AREA Surgeon(s) & Advanced Research Programs Director(s) * Arturo Albarran DO - Primary Advanced Research Programs Director: Sierra Isidro PA-C the surgical services tech was responsible for tissue manipulation, hemostasis, wound closure and assisting with exposure. Anesthesia: general ASA: III Estimated Blood Loss: 25 mL Drains: Closed/Suction Drain Right;Left Abdomen Bulb 7 Fr. (Active) Closed/Suction Drain Lower;Midline Abdomen Bulb 7 Fr. (Active) Site Description Clean;Dry;Intact 10/16/24 1030 Dressing Status Clean;Dry;Intact 10/16/24 1030 Drainage Appearance Serosanguineous 10/16/24 1030 Closed/Suction Drain Abdomen 7 Fr. (Active) Site Description Clean;Dry;Intact 10/16/24 1030 Dressing Status Clean;Dry;Intact 10/16/24 1030 Drainage Appearance Serosanguineous 10/16/24 1030 Specimen: ID Type Source Tests Collected by Time 1 : right labia minora skin Tissue Vagina TISSUE EXAM Arturo Albarran, 10/16/2024 0946 Indications: Marie Pandya is a 34 y.o. female who symptomatic abdominal pannus and right labial hypertrophy Findings: #1 abdominal pannus 1372 g #2 labial hypertrophy right skin Procedure Details: Patient brought to the operating room placed in supine position and intubated. Gen. endotracheal tube intubation after Venodyne boots are confirmed on and working. Entire abdomen and groin were prepped and draped in sterile fashion and then the previously marked panniculectomy markings were reinforced and midline was drawn and after thorough timeout was completed 20 mL of quarter percent Marcainewith epinephrine were injected along the low abdomen crease.A period of 9 minutes late for epinephrine effect and 10 blade scalpel was used to make the entire the incision through skin and electrocautery was used to dissect down to the abdominal fascia this was found superiorly up to below the umbilicus. Next 2 single skin hooks placed the 12 and 6:00 positions of the umbilicus were used to elevate the umbilicus and a 15 blade scalpel used to circumscribe the umbilicus and free from the surrounding skin. Iris scissors and Metzenbaum scissors were used to dissect this down to the abdominal fascia and then the inferiorly skin flap was bisected with a 10 blade scalpel. Reflected superiorly thedissection continued superior to the umbilicus along the abdominal fascia dorsally and ended well below the xiphoid process The entirety of the wound was irrigated with 200 mL of normal saline with bacitracin and the superior skin flap was advanced and tacked together with a stapler to the inferiorly based skin flap A Anne-Marie clamp was used to define the inferiorly based skin to be resected and it was resected with a 10 blade scalpel, and electrocautery. The skin was approximated for marking purposes and then a 1 1/2 cm horizontal incision was made in the midline directly overlying the umbilicus and the umbilicus was delivered through this new opening with the marking 12 o'clock position with a single 3-0 silk suture. The abdomen was divided in 4 quadrants and 0.25% Marcaine with epinephrine was injected equally across 4 quadrants. The superior skin flap was advanced inferiorly and again tacked with jody and then 2, 7 Georgian drains were brought out through 2 stab incisions in the suprapubic area secured with a 3-0 silk sutures and the replacement pressure satisfaction across the lower abdomen series of 2-0,and 3-0 Vicryl sutures secured the incision and then ultimately closed with 4-0 Monocryl the umbilicus was delivered through the opening secured in place with 3-0 Vicryl sutures and 4-0 Monocryl Steri-Strips and Mastisol were placed across the umbilicus. Dermabond glue tape was applied across the lo wer abdominal incision special dressings were placed. Next attention was turned to the right labialhypertrophy. The drapes were taken down and the area was prepped and draped in sterile fashion. Theinferior wedge resection was drawn in order to reconstruct the right labia to match the left labia.And then injected with a total of 10 cc of 0.25% Marcaine with epinephrine. A 15 blade scalpel was used to make the skin incision and the skin was then resected utilizing a forcep and iris scissors. Hemostasis was obtained with electrocautery on the needle tip. Next several advancing 4 oh buried Vicryl sutures reapproximated the deep space both centrally and then medial and lateral. And then ultimately a 4- 0 chromic suture was sewn in order to close the skin in layers. Implements a Vaseline kailee bandage was placed as well as an ice pack. And abdominal binders were placed, patient was kept roxana flexed position and then extubated and taken to PACU in stable condition. Care was maintained throughout the entire procedure to minimize risk of joint damage given her connective tissue disorder. When she was placed in the [facility] care was maintained not to flex or externally or internally rotate her hips. Same care was taken during transfers. Complications: None Disposition: PACU, anticipate home Condition: Stable * Maribel Mcpherson RN - 10/16/2024 6:55 AM EDT [facility] [phone] documented in this encounter Plan of Treatment Upcoming Encounters Date Type Department Care Team (Late st Contact Info) Description 10/24/2024 1:30 PM EDT Office Visit Plastic & Re[facility] [place] [address] [place] [phone] [address] [phone] 12/09/2024 1:00 PM EDT Appointment [facility] Xray [address] [place] [id number] documented as of this encounter Procedures Procedure Name Priority Date/Time Associated Diagnosis Comments TISSUE EXAM Routine 10/16/2024 9:46 AM EDT Erythema intertrigo Abdominal pannus OR EXCISION EXCESSIVE SKIN/SUBCUTANEOUS TISSUE OTHER AREA 10/16/2024 7:39 AM EDT Abdominal pannus Erythema intertrigo Special Needs 2HRS WITH 30 MIN CLEAN OR EXCISION EXCESSIVE SKIN SUBQ TISSUE ABD INFRAUMBILICAL PANNICULECTOMY 10/16/2024 7:39 AM EDT Abdominal pannus Erythema intertrigo Special Needs 2HRS WITH 30 MIN CLEAN ACTIVATED PARTIAL THROMBOPLASTIN TIME Routine 10/16/2024 6:44 AM EDT Abdominal pannus Abrasion of labia minora, sequela PROTHROMBIN TIME WITH INR Routine 10/16/2024 6:44 AM EDT Abdominal pannus Abrasion of labia minora, sequela BASIC METABOLIC PANEL Routine 10/16/2024 6:44 AM EDT Abdominal pannus Abrasion of labia minora, sequela documented in this encounter Results * Tissue exam (10/16/2024 9:46 AM EDT) Final Diagnosis Vulva, right labia minora, labiaplasty: Benign squamous epithelial-lined tissue without hair follicles, consistent with labium minus No significant pathologic change identified 10/17/2024 10:57 AM EDT [facility] Gross Description A. Vulva, right labia minora skin: Labeled vagina, right lab . Received in formalin is a 4.4 x 1.7 x 0.8 cm irregular wells-white rubbery portion of skin and subcutaneous tissue. The cut surfaces are wells-white and edematous. No mass lesions are appreciated. Non Ferrous Material Handler sections are submitted in one cassette, two pieces. LEONA 10/17/2024 10:57 AM EDT [facility] Disclaimer Unless otherwise specified, all tissue is 10% NB formalin fixed and paraffin embedded. 10/17/2024 10:57 AM T [facility] Tissue Vulval structure / Unknown 10/16/2024 9:46 AM EDT 10/16/2024 12:21 PM EDT us Arturo Albarran DO LAB PATHOLOGY ORDERABLES Fin al Result [facility] [address] [place] [address], * Prothrombin time with INR (10/16/2024 6:44 AM EDT) Protime 11.7 10.6 - 13.9 sec LAB COAGULATION METHOD 10/16/2024 7:09 AM EDT [facility] INR 0.9 LAB COAGULATION METHOD 10/16/2024 7:09 AM EDT [facility] Blood Venous blood specimen / Unknown Venipuncture / Unknown 10/16/2024 6:44 AM EDT 10/16/2024 6:51 AM EDT Arturo Albarran LAB BLOOD ORDERABLES Final R esult Performing Organization Address City/[facility]/ZIP Co de Phone Number [facility] [address] [place] [address], [place] [phone] * Activated partial thromboplastin time (10/16/2024 6:44 AM EDT) Pathologist [facility] aPTT 35.0 24.1 - 39.3 sec LAB COAGULATION METHOD 10/16/2024 7:09 AM EDT [facility] Blood Venous blood specimen / Unknown Venipuncture / Unknown 10/16/2024 6:44 AM EDT 10/16/2024 6:51 AM EDT Arturo Albarran DO LAB BLOOD ORDERABLES Final R esult Performing Organization Address City/[facility]/ZIP Co de Phone Number [facility] [address] [place] [address], [place] [phone] * BMP (10/16/2024 6:44 AM EDT) Sodium 140 133 - 145 mmol/L LAB CHEMISTRY METHOD 10/16/2024 7:14 AM EDT [facility] Potassium 4.1 3.5 - 5.5 mmol/L LAB CHEMISTRY METHOD 10/16/2024 7:14 AM EDT [facility] Chloride 105 96 - 110 mmol/L LAB CHEMISTRY METHOD 10/16/2024 7:14 AM EDT [facility] CO2 31 21 - 32 mmol/L LAB CHEMISTRY METHOD 10/16/2024 7:14 AM EDT [facility] Anion Gap 4 3 - 11 LAB CHEMISTRY METHOD 10/16/2024 7:14 AM EDT [facility] Glucose 78 70 - 100 mg/dL LAB CHEMISTRY METHOD 10/16/2024 7:[address] [facility] BUN 11 5 - 25 mg/dL LAB CHEMISTRY METHOD 10/16/2024 7:[address] [facility] Creatinine 0.69 0.50 - 1.10 mg/dL LAB CHEMISTRY METHOD [facility] 116 >=60 mL/min/1. 73m2 LAB CHEMISTRY METHOD 10/16/2024 7:14 AM EDT [facility] Comment:Calculation based on the Chronic Kidney Disease Epidemiology Collaboration (CKD-EPI) equation refit without adjustment for race. BUN/Creatinine Ratio 15.9 LAB CHEMISTRY METHOD 10/16/2024 7:[address] [facility] Calcium 9.3 8.5 - 10.5 mg/dL LAB CHEMISTRY METHOD 10/16/2024 7:14 AM T [facility] Blood Venous blood specimen / Unknown Venipuncture / Unknown 10/16/2024 6:44 AM EDT 10/16/2024 6:51 AM EDT us Arturo Albarran DO LAB BLOOD ORDERABLES Final R esult [facility] [address] [place] [address], documented in this encounter Visit Diagnoses Diagnosis Abdominal pannus- Primary Abrasion of labia minora, sequela Erythema intertrigo Other specified erythematous condition documented in this encounter Admitting Diagnoses Diagnosis Abdominal pannus Erythema intertrigo Other specified erythematous condition documented in this encounter Administered Medications Inactive Administered Medications - up to 3 most recent administrations Medication Order MAR Action Action Date Dose Rate Site celecoxib (CeleBREX) capsule 100 mg 100 mg, oral, Once, On Nikia 10/16/24 at 0645, For 1 dose, Preprocedure Given 10/16/2024 7:11 AM EDT 100 mg diphenhydrAMINE (BENADRYL) injection 12.5 mg 12.5 mg, intravenous, Once as needed, nausea and vomitting, Starting on Nikia 10/16/24 at 1252, For 1 dose, Phase II/On Unit, Give as THIRD antiemetic in order set. Only if this has not been given in the operating room or in PACU. gabapentin (NEURONTIN) capsule 100 mg 100 mg, oral, Once, On Nikia 10/16/24 at 0645, For 1 dose, Preprocedure Given 10/16/2024 7:11 AM EDT 100 mg haloperidol lactate (HALDOL) injection 1 mg 1 mg, intravenous, Once as needed, nausea and vomitting, Starting on Nikia 10/16/24 at 1252, For 1 dose, Phase II/On Unit, Give as SECOND antiemetic in order set. Only if this has not been given in the operating room or in PACU. May be ordered via either intramuscular or intravenous route. If ordered IV, maximum of 5 mg/minute. HYDROmorphone (DILAUDID) injection 0.5 mg 0.5 mg, intravenous, Every 5 min PRN, severe pain, Pain, Starting on Nikia 10/16/24 at 1049, For 4 doses, Recovery (only) Given 10/16/2024 11:17 AM EDT 0.5 mg lactated Ringer's infusion 75 mL/hr, intravenous, Continuous, Starting on Nikia 10/16/24 at 0700, Preprocedure New Bag 10/16/2024 10:09 AM EDT Restarted 10/16/2024 7:39 AM EDT New Bag 10/16/2024 7:33 AM EDT 75 mL/hr 75 mL/hr Le ft Hand ondansetron (PF) (ZOFRAN) injection 4 mg 4 mg, intravenous, Once as needed, nausea, vomiting, Starting on Nikia 10/16/24 at 1252, For 1 dose, Phase II/On Unit, Give as FIRST antiemetic in order set Infuse over 2 minutes. oxyCODONE (ROXICODONE) immediate release tablet 5 mg 5 mg, oral, Once as needed, mild pain, Starting on Nikia 10/16/24 at 1049, For 1 dose, Recovery (only) Given 10/16/2024 11:18 AM EDT 5 mg oxyCODONE (ROXICODONE) immediate release tablet 5 mg 5 mg, oral, Once as needed, moderate pain, Starting on Nikia 10/16/24 at 1252, For 1 dose, Phase II/On Unit sodium chloride 0.9 % flush 10 mL 10 mL, intravenous, 2 times daily, First dose on Nikia 10/16/24 at 0900, Preprocedure sodium chloride 0.9 % flush 10 mL 10 mL, intravenous, As needed, line care, Starting on Nikia 10/16/24 at 0636, Preprocedure documented in this encounter Discontinued Medications Medication Sig Discontinue Reason Start Date End Da te baclofen (LIORESAL) 10 mg tablet Take 1 tablet (10 mg total) by mouth 3 (three) times a day. 10/02/2024 busPIRone (BUSPAR) 15 mg tablet Take 1 tablet (15 mg total) by mouth 3 (three) times a day. 10/02/2024 dextroamphetamine/amphet amine (ADDERALL ORAL) Take 5 mg by mouth daily as needed. 10/02/2024 LORazepam (ATIVAN) 1 mg tablet Take 1 tablet (1 mg total) by mouth. 10/14/2019 10/02/2024 METHYLPREDNISOLONE ORAL Take by mouth. 10/03/19 naproxen (NAPROSYN) 500 mg tablet Take 1 tablet (500 mg total) by mouth 2 (two) times a day with meals. 10/02/2024 tacrolimus (ENVARSUS XR) 0.75 mg extended release tablet Take 0.14 mg/kg by mouth 1 (one) time each day. Entered in Error 10/16/2024 documented as of this encounter Historical Medications * This list may reflect changes made after this encounter. tacrolimus (PROTOPIC) 0.1 % ointment Apply topically 2 (two) times a day. amphetamine-dext roamphetamine (ADDERALL) 20 mg tablet Take 1 tablet (20 mg total) by mouth 2 (two) times a day. Max Daily Amount: 40 mg oxyCODONE (ROXICODONE) 10 mg immediate release tablet Take 1 tablet (10 mg total) by mouth 3 (three) times a day if needed for severe pain. dicyclomine (BENTYL) 10 mg capsule Take 1 capsule (10 mg total) by mouth 4 (four) times a day (before meals and nightly). apremilast (Otezla) 30 mg tablet Take 30 mg by mouth 2 (two) times a day. nabumetone (RELAFEN) 500 mg tablet Take 1 tablet (500 mg total) by mouth 2 (two) times a day. added in this encounter Active and Recently Administered Medications Times are shown in EDT. Scheduled Medication Order 10/14/2024 10/15/2024 10/16/2024 acetaminophen (TYLENOL) tablet 1,000 mg 1,000 mg, oral, Once, On Nikia 10/16/24 at 0645, For 1 dose, Preprocedure, Give 1 hour prior to surgery 0712 (Not Given - Pr ovider: Maribel Mcpherson RN - Reason: Other - Comment: PT REFUSED) ceFAZolin (ANCEF) 2 g in sterile water 20 mL IV syringe (COMPLETED) 2 g, intravenous, Administer over 3 Minutes, Once, On Nikia 10/16/24 at 0645, For 1 dose, Preprocedure, -IV Push over 3 minutes -Administer within 60 minutes of incision, Indication: Prophylaxis-Surgical 0725 (Handoff - Prov ider: Maribel Mcphreson RN)0757 (New Bag - Provider: Brooks Mello CRNA) celecoxib (CeleBREX) capsule 100 mg (COMPLETED) 100 mg, oral, Once, On Nikia 10/16/24 at 0645, For 1 dose, Preprocedure 0711 (Given - Provid er: Maribel Mcpherson RN) gabapentin (NEURONTIN) capsule 100 mg (COMPLETED) 100 mg, oral, Once, On Nikia 10/16/24 at 0645, For 1 dose, Preprocedure 0711 (Given - Provid er: Maribel Mcpherson RN) sodium chloride 0.9 % flush 10 mL(Linked Group 1) 10 mL, intravenous, 2 times daily, First dose on Nikia 10/16/24 at 0900, Preprocedure 0900 (Canceled Entry - Provider: Automatic Discharge Provider - Comment: Automatically canceled at discontinue of medication order) Continuous Medication Order 10/14/2024 10/15/202410/1610/16/2024 lactated Ringer's infusion 75 mL/hr, intravenous, Continuous, Starting on Nikia 10/16/24 at 0700, Preprocedure 0733 (New Bag - Prov ider: Maribel Mcphersno RN)0738 (Paused - Provider: Brooks Mello CRNA - Comment: Switch to gravity)0739 (Restarted - Provider: Brooks Mello CRNA)1009 (New Bag - Provider: Brooks Mello CRNA)1035 (Stopped - Provider: Tenzin Angulo DO)1633 (Due: Stopped) PRN Medication Order 10/14/2024 10/15/2024 10/16/2024 bupivacaine-EPINEPHrine (PF) (MARCAINE w/EPI) 0.25 %-1:200,000 injection (CANCELED) As needed, Starting on Nikia 10/16/24 at 0820, Intraprocedure 0820 (Given - Provid er: Arturo Albarran DO) diphenhydrAMINE (BENADRYL) injection 12.5 mg 12.5 mg, intravenous, Once as needed, nausea and vomitting, Starting on Nikia 10/16/24 at 1252, For 1 dose, Phase II/On Unit, Give as THIRD antiemetic in order set. Only if this has not been given in the operating room or in PACU. haloperidol lactate (HALDOL) injection 1 mg 1 mg, intravenous, Once as needed, nausea and vomitting, Starting on Nikia 10/16/24 at 1252, For 1 dose, Phase II/On Unit, Give as SECOND antiemetic in order set. Only if this has not been given in the operating room or in PACU. May be ordered via either intramuscular or intravenous route. If ordered IV, maximum of 5 mg/minute. HYDROmorphone (DILAUDID) injection 0.5 mg (CANCELED) 0.5 mg, intravenous, Every 5 min PRN, severe pain, Pain, Starting on Nikia 10/16/24 at 1049, For 4 doses, Recovery (only) 1117 (Given - Provid er: Edith Becker RN) ondansetron (PF) (ZOFRAN) injection 4 mg 4 mg, intravenous, Once as needed, nausea, vomiting, Starting on Nikia 10/16/24 at 1252, For 1 dose, Phase II/On Unit, Give as FIRST antiemetic in order set Infuse over 2 minutes. oxyCODONE (ROXICODONE) immediate release tablet 5 mg (COMPLETED) 5 mg, oral, Once as needed, mild pain, Starting on Nikia 10/16/24 at 1049, For 1 dose, Recovery (only) 1118 (Given - Provid er: Edith Becker RN) oxyCODONE (ROXICODONE) immediate release tablet 5 mg 5 mg, oral, Once as needed, moderate pain, Starting on Nikia 10/16/24 at 1252, For 1 dose, Phase II/On Unit sodium chloride 0.9 % flush 10 mL(Linked Group 1) 10 mL, intravenous, As needed, line care, Starting on Nikia 10/16/24 at 0636, Preprocedure vancomycin (VANCOCIN) vial for injection (CANCELED) As needed, Starting on Nikia 10/16/24 at 0820, Intraprocedure 0820 (Given - Provid er: Arturo Albarran, DO - Comment: IRRIGATION) Linked Groups Order Group 1: Insert peripheral IV (CANCELED) STAT, Once, On Nikia 10/16/24 at 0637, For 1 occurrence, Preprocedure And Maintain IV access (CANCELED) Until discontinued, Starting on Nikia 10/16/24 at 0637, Until Specified, Preprocedure And Saline lock IV (CANCELED) Routine, Once, On Nikia 10/16/24 at 0637, For 1 occurrence, Preprocedure And sodium chloride 0.9 % flush 10 mLJump to med 10 mL, intravenous, 2 times daily, First dose on Nikia 10/16/24 at 0900, Preprocedure And sodium chloride 0.9 % flush 10 mLJump to med 10 mL, intravenous, As needed, line care, Starting on Nikia 10/16/24 at 0636, Preprocedure documented in this encounter Orders Medications Ordered That Elvis ht Not Have Been Administered Count Last Ordered Date First Ordered Date acetaminophen (TYLENOL) tablet 1,000 mg 1 0 10/16/2024 bupivacaine-EPINEPHrine (PF) (MARCAINE w/EPI) 0.25 %-1:200,000 injection 1 10/16/2024 ceFAZolin (ANCEF) 2 g in tramaine rile water 20 mL IV syringe 1 10/16/2024 diphenhydrAMINE (BENADRYL) i njection 12.5 mg 2 10/16/2024 fentaNYL (PF) (SUBLIMAZE) injection 50 mcg 1 10/16/2024 haloperidol lactate (HALDOL) injection 1 mg 2 10/16/2024 lactated Ringer's infusion 1 10/16/2024 ondansetron (PF) (ZOFRAN) injection 4 mg 1 10/16/2024 oxyCODONE (ROXICODONE) immed iate release tablet 5 mg 1 10/16/2024 sodium chloride 0.9 % flush 10 mL 2 025 vancomycin (VANCOCIN) vial for injection 1 10/16/2024 Discharge Count Last Ordered Date First Orde red Date DISCHARGE PATIENT 1 10/16/2024 documented in this encounter Care Teams Bilingual Branch Manager Relationship Specialty Start Date End Date Jo Ann Hebert PA [address] [place] [address], [address] [place] [address] PCP - General 08/25/24 documented as of this encounter
--- OUTSIDE RECORDS SUMMARY | 2024-10-16 07:30 | XMS_ITS | Encounter Summary ---
Author Organization [facility] Address [address] [place] [address] Care Team Providers Care Eye Physician Name Role Phone Jo Ann Hebert Primary Care Provider [phone] Reason for Visit * Auth/Cert (Routine) Specialty Diagnoses / Procedures Referred By Contac t Referred To Contact Diagnoses Abdominal pannus Erythema intertrigo Abdominal pannus [E65], intertrigo Procedures NV EXCISION EXCESSIVE SKIN SUBQ TISSUE ABD INFRAUMBILICAL PANNICULECTOMY NV EXCISION EXCESSIVE SKIN/SUBCUTANEOUS TISSUE OTHER AREA PANNICULECTOMY LABIAPLASTY Arturo Albarran DO [address] [place] [address] Phone: tel: fax: Referral ID Status Reason Start Date Expiration Date Visits Re quested Visits Authorized [id number] 08/27/2024 1 1 Encounter Details Date Type Department Care Team (Late st Contact Info) Description 10/16/2024 7:30 AM EDT - 10/16/2024 11:00 AM EDT Surgery [facility] Main OR [address] [place] [phone] Arturo Albarran DO [address] [place] [address] PANNICULECTOMY [67103 (CPT )] Surgery Details Date/Time Status Location OR Service Patient Class Case Cl ass Case Type Trauma Case? 10/16/2024 7:30 AM Posted [facility] OR OR [address] [place] [address] Outpatient Surgery F - Elective Panel 1 Procedure LRB Anes Op Region Wound Class Comments PANNICULECTOMY N/A general Abdomen Class I/ Clean LABIAPLASTY N/A general Vulva Class I/ Clean Surgeon Surgeon Role Service Panel Arturo Albarran DO Primary Plastics 1 Special Needs 2HRS WITH 30 MIN CLEAN documented in this encounter Social History Tobacco Use Types Packs/Day Years [...] Sign Reading Time Taken Comments Blood Pressure 137/77 10/16/2024 10:45 AM EDT Pulse 55 10/16/2024 11:00 AM EDT Temperature 36.4 C (97.6 F) 10/16/2024 11:00 AM EDT Respiratory Rate 14 10/16/2024 11:00 AM EDT Oxygen Saturation 100% 10/16/2024 11:00 AM EDT Inhaled Oxygen Concentration - - Weight [...] Admit Date: 10/16/2024 Discharge Date: 10/16/2024 Location: [facility] MAIN OR Pool Room/M* Dictating Provider: ALONSO Thorpe Attending Physician: Arturo Albarran DO Primary Care Provider: ALONSO Triplett Discharge Disposition: Stable Primary Diagnosis: Principal Problem: Abdominal pannus Active Problems: Erythema intertrigo Secondary Diagnoses: Patient Active Problem List Diagnosis Allergic conjunctivitis of both eyes Arthralgia Asthma IgA deficiency ([facility] V24, [facility] V28) Insulin controlled gestational diabetes mellitus (GDM) during , antepartum Low serum IgG2 subclass level Lower abdominal pain Melanoma in situ ([facility] V24, [facility] V28) Nevus Non-ulcer dyspepsia Perennial allergic rhinitis Rubella non-immune status, antepartum Uterine size-date discrepancy in third trimester Morbid obesity with BMI of 40.0-44.9, adult ([facility] V24, [facility] V28) Abdominal pannus Intertrigo Abrasion of labia minora Behcet's disease ([facility] V24, [facility] V28) Kings-Danlos disease Erythema intertrigo Procedures: Panniculectomy [...] PROCEDURE: HISTORICAL APPENDECTOMY CHOLECYSTECTOMY ESOPHAGOGASTRODUODENOSCOPY 03/29/15 PROCEDURE: NV EGD TRANSORAL BIOPSY [...] 4 weeks. When to call the office ([phone]) If you have increased swelling and redness [...] sent through Care Everywhere. * General Anesthesia ([place]icaraguan) * Panniculectomy: Post op ([place]icaraguan) * Surgical Drain Care ([place]icaraguan) documented in this encounter Medications at Time [...] included. PATIENT: Marie Pandya ENCOUNTER: 10/08/2024 EMRN: [id number] : 1990 CHIEF COMPLAINT: Pre-op Exam (Panniculectomy) The patient was given the opportunity to have a neurological physiotherapist present during a sensitive examination at today's visit. She accepted this offer of a neurological physiotherapist. HPI: This 34 y.o. female presents for further discussion of potential panniculectomy. She states her medical history is unchanged. She presents in a wheelchair but can she walk short distances and stand. 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 And she is aware of [...] of both eyes Arthralgia Asthma IgA deficiency ([facility] V24, [facility] V28) Insulin controlled gestational diabetes mellitus (GDM) during , antepartum Low serum IgG2 subclass level Lower abdominal pain Melanoma in situ ([facility] V24, [facility] V28) Nevus Non-ulcer dyspepsia Perennial allergic rhinitis Rubella non-immune status, antepartum Uterine size-date discrepancy in third trimester Morbid obesity with BMI of 40.0-44.9, adult ([facility] V24, [facility] V28) Abdominal pannus Intertrigo Abrasion of labia minora PAST SURGICAL HISTORY: Past Surgical History: Procedure Laterality Date ADENOIDECTOMY PROCEDURE: HISTORICAL ADENOIDECTOMY APPENDECTOMY PROCEDURE: HISTORICAL APPENDECTOMY CHOLECYSTECTOMY ESOPHAGOGASTRODUODENOSCOPY 03/29/15 PROCEDURE: NV EGD TRANSORAL BIOPSY [...] Plastic and Reconstructive, Cosmetic and Laser Surgery [facility] A Member of [facility] W [phone] F [phone] [place] [address] [email or web address] cc: Ritu Muñoz PA documented in [...] intertrigo [L30.4] Right labial hypertrophy Procedures: PANNICULECTOMY 73335 - NV EXCISION EXCESSIVE SKIN SUBQ TISSUE ABD INFRAUMBILICAL PANNICULECTOMY LABIAPLASTY 40412 - NV EXCISION EXCESSIVE SKIN/SUBCUTANEOUS TISSUE OTHER AREA Surgeon(s) & Superintendent [employer](s) * Arturo Albarran DO - Primary Superintendent [employer]: Sierra Isidro PA-C the director surgical was responsible for tissue manipulation, hemostasis, wound [...] minora skin Tissue Vagina TISSUE EXAM Arturo Albarran DO 10/16/2024 0946 Indications: Marie Pandya is a [...] tacked with jody and then 2, 7 [place] drains were brought out through 2 stab [...] disorder. When she was placed in the stirrups care was maintained not to flex or externally or internally rotate her hips. Same care was taken during transfers. Complications: None Disposition: PACU, anticipate home Condition: Stable * Marbiel Mcpherson RN - 10/16/2024 6:55 AM EDT [facility] [phone] documented in this encounter Plan of Treatment Upcoming Encounters Date Type Department Care Team (Late st Contact Info) Description 10/24/2024 1:30 PM EDT Office Visit Plastic & Reconstructive Surgery [place] [address] [place] [phone] [phone] 12/09/2024 1:00 PM EDT Appointment [facility] X[facility] [address] [place] [phone] documented as of this encounter Procedures Procedure Name Priority Date/Time Associated Diagnosis Comments TISSUE EXAM Routine 10/16/2024 9:46 AM EDT Erythema intertrigo Abdominal pannus NV EXCISION EXCESSIVE SKIN/SUBCUTANEOUS TISSUE OTHER AREA 10/16/2024 7:39 AM EDT Abdominal pannus Erythema intertrigo Special Needs 2HRS WITH 30 MIN CLEAN NV EXCISION EXCESSIVE SKIN SUBQ TISSUE ABD INFRAUMBILICAL [...] pathologic change identified 10/17/2024 10:57 AM EDT [facility] Gross Description A. Vulva, right labia minora skin: Labeled vagina, right lab . Received in formalin is a 4.4 x 1.7 x 0.8 cm irregular wells-white rubbery portion of skin and subcutaneous tissue. The cut surfaces are wells-white and edematous. No mass lesions are appreciated. Public Address Announcer sections are submitted in one cassette, two pieces. LEONA 10/17/2024 10:57 AM EDT [facility] Disclaimer Unless otherwise specified, all tissue is 10% NB formalin fixed and paraffin embedded. 10/17/2024 10:57 AM EDT [facility] Tissue Vulval structure / Unknown 10/16/2024 9:46 AM EDT 10/16/2024 12:21 PM EDT us Arturo Albarran DO LAB PATHOLOGY ORDERABLES Fin al Result [facility] [address] [place] [address], * Prothrombin time with INR (10/16/2024 6:44 AM EDT) Protime 11.7 10.6 - 13.9 sec LAB COAGULATION METHOD 10/16/2024 7:09 AM EDT [facility] INR 0.9 LAB COAGULATION METHOD 10/16/2024 7:09 AM EDT [facility] Blood Venous blood specimen / Unknown Venipuncture / Unknown 10/16/2024 6:44 AM EDT 10/16/2024 6:51 AM EDT Arturo Albarran DO LAB BLOOD ORDERABLES Final R esult Performing Organization Address City/[facility]/ZIP Co de Phone Number [facility] [address] [place] [address], [place] [phone] * Activated partial thromboplastin time (10/16/2024 6:44 AM EDT) aPTT 35.0 24.1 - 39.3 sec LAB COAGULATION METHOD 10/16/2024 7:09 AM EDT [facility] Blood Venous blood specimen / Unknown Venipuncture / Unknown 10/16/2024 6:44 AM EDT 10/16/2024 6:51 AM EDT Arturo Albarran DO LAB BLOOD ORDERABLES Final R esult [facility] [address] [place] [address], [place] [phone] * BMP (10/16/2024 6:44 AM EDT) Sodium 140 133 - 145 mmol/L LAB CHEMISTRY METHOD 10/16/2024 7:14 AM EDT [facility] Potassium 4.1 3.5 - 5.5 mmol/L LAB CHEMISTRY METHOD 10/16/2024 7:14 AM [facility] Chloride 105 96 - 110 mmol/L LAB CHEMISTRY METHOD 10/16/2024 7:14 AM [facility] CO2 31 21 - 32 mmol/L LAB CHEMISTRY METHOD 10/16/2024 7:14 AM [facility] Anion Gap 4 3 - 11 LAB CHEMISTRY METHOD 10/16/2024 7:14 AM [facility] Glucose 78 70 - 100 mg/dL LAB CHEMISTRY METHOD 10/16/2024 7:14 AM [facility] BUN 11 5 - 25 mg/dL LAB CHEMISTRY METHOD 10/16/2024 7:14 AM [facility] Creatinine 0.69 0.50 - 1.10 mg/dL LAB CHEMISTRY METHOD 10/16/2024 7:14 AM [facility] eGFR 116 >=60 mL/min/1. 73m2 LAB CHEMISTRY METHOD 10/16/2024 7:14 AM [facility] Comment:Calculation based on the Chronic Kidney Disease Epidemiology Collaboration (CKD-EPI) equation refit without adjustment for race. BUN/Creatinine Ratio 15.9 LAB CHEMISTRY METHOD 10/16/2024 7:14 AM [facility] Calcium 9.3 8.5 - 10.5 mg/dL LAB CHEMISTRY METHOD 10/16/2024 7:14 AM [facility] Blood Venous blood specimen / Unknown Venipuncture / Unknown 10/16/2024 6:44 AM EDT 10/16/2024 6:51 AM EDT Arturo Albarran DO LAB BLOOD ORDERABLES Final R esult [facility] [address] [place] [address], [place] [phone] documented in this encounter Visit Diagnoses Diagnosis Abdominal pannus- Primary Abrasion of labia minora, sequela Erythema intertrigo Other specified erythematous condition Abdominal pannus Erythema intertrigo Other specified erythematous condition documented in this encounter Admitting Diagnoses Diagnosis Abdominal pannus Erythema intertrigo Other specified erythematous condition documented in this encounter Administered Medications Inactive Administered Medications - up to 3 most recent administrations Medication Order MAR Action Action Date Dose Rate Site bupivacaine-EPINEPHrine (PF) (MARCAINE w/EPI) 0.25 %-1:200,000 injection As needed, Starting on Nikia 10/16/24 at 0820, Intraprocedure Given 10/16/2024 8:20 AM EDT 60 mL Abdominal Tissue celecoxib (CeleBREX) capsule 100 mg 100 mg, [...] 0636, Preprocedure vancomycin (VANCOCIN) vial for injection As needed, Starting on Nikia 10/16/24 at 0820, Intraprocedure Given 10/16/2024 8:20 AM EDT 1 g Abdominal Tissue documented in this encounter Discontinued Medications Medication [...] 10/02/2024 METHYLPREDNISOLONE ORAL Take by mouth. 10/03/19 25 naproxen (NAPROSYN) 500 mg tablet Take 1 [...] Prophylaxis-Surgical 0725 (Handoff - Prov ider: Maribel Mcpherson RN)0757 (New Bag - Provider: Brooks Mello [...] of medication order) Continuous Medication Order 10/14/2024 10/15/2024 10/16/2024 lactated Ringer's infusion 75 mL/hr, intravenous, Continuous, Starting on Nikia 10/16/24 at 0700, Preprocedure 0733 (New Bag - Prov ider: Maribel Mcpherson RN)0738 (Paused - Provider: Brooks Mello CRNA [...] (TYLENOL) tablet 1,000 mg 1 0 10/16/2024 ceFAZolin (ANCEF) 2 g in tramaine [...] 0.9 % flush 10 mL 2 025 Discharge Count Last Ordered Date First Orde red Date DISCHARGE PATIENT 1 10/16/2024 documented in this encounter Care Teams Eye Physician Relationship Specialty Start Date End Date Jo Ann Hebert PA [address] [place] [address], [address] [place] [address] PCP - General 08/25/24 documented as of this encounter
--- OUTSIDE RECORDS SUMMARY | 2024-10-16 07:39 | XMS_ITS | Encounter Summary ---
Author Organization [facility] Address [address] [place] [address] Care Team Providers Care Logistics Account Manager Name Role Phone Jo Ann Hebert Primary Care Provider [phone] Reason for Visit * Auth/Cert (Routine) Specialty Diagnoses / Procedures Referred By Contac t Referred To Contact Diagnoses Abdominal pannus Erythema intertrigo Abdominal pannus [E65], intertrigo Procedures CT EXCISION EXCESSIVE SKIN SUBQ TISSUE ABD INFRAUMBILICAL PANNICULECTOMY CT EXCISION EXCESSIVE SKIN/SUBCUTANEOUS TISSUE OTHER AREA PANNICULECTOMY LABIAPLASTY Arturo Albarran DO [address] [place] [address] Phone: tel: fax: Referral ID Status Reason Start Date Expiration Date Visits Re quested Visits Authorized [id number] 08/27/2024 1 1 Encounter Details Date Type Department Care Team (Late st Contact Info) Description 10/16/2024 7:39 AM EDT Anesthesia Event [facility] Main OR [address] [place] [phone] Tenzin Angulo DO [address] [place] [id number] Anesthesia Record Procedure Summary Procedure Name Responsible Anesthesiologist Anesthesia Start Time Anesthesia Stop Time PANNICULECTOMY (Abdomen) Tenzin Angulo DO 10/16/24 0739 10/16/24 1035 Events Date Time Event Comment 10/16/2024 0700 0739 In Room 0739 An Start 0739 An Start Data The patient wa s reevaluated immediately before moderate or deep sedation use and before anesthesia induction. 0747 An Induction 0748 An Intubation 0752 Anesthesia Ready 0814 Proc Start 1015 Proc Fin 1023 An Extubation 1026 an stop data 1026 Out of Room 1035 Handoff to RN I completed my handoff to the receiving nurse during which we: 1. Identified the patient 2. Identified the responsible provider 3. Reviewed the pertinent medical history 4. Discussed the surgical course 5. Reviewed intra-op anesthesia management and issues during anesthesia 6. Set expectations for post-procedure period 7. Allowed opportunity for questions and acknowledgement of understanding. 1035 An Stop Meds Name Total midazolam 1 mg/mL 2 mg fentaNYL (SUBLIMAZE) injection 100 mcg propofol (DIPRIVAN) injection 10 mg/mL 2 00 mg rocuronium 100 mg ondansetron 2 mg/mL 4 mg glycopyrrolate 0.2 mg/mL 0.3 mg dexamethasone (DECADRON) injection 4 mg/ mL 4 mg lidocaine PF (XYLOCAINE-MPF) local injec tion 2% 100 mg ceFAZolin (ANCEF) 2 g in sterile water 2 0 mL IV syringe 2 g diphenhydrAMINE (BENADRYL) injection 25 mg metoclopramide (REGLAN) injection 10 mg HYDROmorphone (DILAUDID) injection 1 mg/ mL 1 mg ketamine (KETALAR) injection 50 mg/mL sy ringe 50 mg sugammadex (BRIDION) injection 100 mg/mL 200 mg lactated Ringer's infusion 1,000 mL * Agents Name O2 N2O Air Sevoflurane Isoflurane Inspired Isoflurane Inspired Sevoflurane * Blood No blood administrations on file. Lines, Drains, and Airways Type Details Placement Removal Wound Incision; Abdomen; Medial, Upper 10/16/24 0816 by Closed/Suction Drain 10/16/24; 0904; Yes ; 2; Right, Left; Abdomen; Bulb; 7 Fr. 10/16/24 0904 by Amy Curtis RN Closed/Suction Drain 10/16/24; 0912; Low er, Midline; Abdomen; Bulb; 7 Fr. 10/16/24 0912 by Amy Curtis RN Closed/Suction Drain 10/16/24; 15; Abdomen; 7 Fr. 10/16/24 09 by Amy Curtis RN Peripheral IV Placement Date: 10/16/24; Placement Time: 07; Orientation: Left, Posterior; Location: Hand; Site Prep: Chlorhexidine; Local Anesth: None; Inserted by: DAXA PUENTES; Insertion Attempts: 2; Removal Date: 10/16/24; Removal Time: 14110/16/24 0732 by Maribel Mcpherson RN 10/16/24 1419 by Jayashree Frances RN ETT Placement Date: 10/16/24; Placement Time: 08 (created via procedure documentation); Mask Ventilation: 1; Technique: Direct laryngoscopy; Type: ETT; Cuffed: Yes; Blade Size: 3; Location: Oral; Insertion Attempts: 1; Placement Verification: Auscultation, Capnometry; Removal Date: 10/16/24; Removal Time: 1023 10/16/24 0812 by Brooks Mello CRNA 10/16/24 1023 by Brooks Mello CRNA documented in this encounter Social History Tobacco [...] as of this encounter Progress Notes * Brooks Mello CRNA - 10/16/2024 10:35 AM EDT Patient: Marie Pandya Procedure Summary Date: 10/16/24 Room / Location: [facility] OR 08 / [facility] OR Anesthesia Start: 738 Anesthesia Stop: Procedures: PANNICULECTOMY (Abdomen) LABIAPLASTY (Vulva) Diagnosis: Abdominal pannus Erythema intertrigo (Abdominal pannus [E65], intertrigo) Surgeons: Arturo Albarran DO Responsible Provider: Tenzin Angulo DO Anesthesia Type: general ASA Status: 3 Anesthesia Plan: general Last Vitals: Vitals Value Taken Time BP 117/68 10/16/24 1030 Temp 36.4 ??C (97.6 ??F) 10/16/24 1030 Pulse 64 10/16/24 1030 Resp 12 10/16/24 1030 SpO2 100 % 10/16/24 1030 Pain Score: 0 - No pain Anesthesia Post Evaluation Patient location during evaluation: PACU Patient participation: complete - patient participated Level of consciousness: awake and alert Pain score: 0 Pain management: adequate Airway patency: patent Anesthetic complications: no Cardiovascular status: acceptable and hemodynamically stable Respiratory status: acceptable and face mask Hydration status: acceptable Nausea: No Vomiting: No No notable events documented. * Tenzin Angulo DO - 10/16/2024 8:08 AM EDTAssociated Order(s): Intubation General Information and Staff Patient location during procedure: OR Anesthesiologist: Tenzin Angulo DO Resident/BRYOLOGIST: Brooks Mello CRNA Performed: resident/BRYOLOGIST/CAA Performed by: Brooks Mello CRNA Authorized by: Tenzin Angulo DO Intubation Airway not difficult Urgency: elective Final Airway Details Successful airway: ETT Cuffed: yes Successful intubation technique: direct laryngoscopy Facilitating devices/methods: intubating stylet Endotracheal tube insertion site: oral Blade: Mehul Blade size: #3 ETT size (mm): 7.0 Cormack-Lehane Classification: grade I - full view of glottis Placement verified by: chest auscultation and capnometry Cuff volume (mL): 7 Measured from: lips ETT to lips (cm): 21 Number of attempts at approach: 1Final airway type: endotracheal airway Indications and Patient Condition Indications for airway management: anesthesia Spontaneous Ventilation: absent Sedation level: Yes Preoxygenated: yes Soft Tissue Damage: No Dentition Unchanged: Yes Patient position: sniffing MILS maintained throughout Mask difficulty assessment: 1 - vent by mask * Tenzin Angulo DO - 10/16/2024 6:34 AM EDT Relevant Problems Cardio (+) Behcet's disease ([facility] V24, [facility] V28) Pulmonary (+) Asthma Other (+) Melanoma in situ ([facility] V24, [facility] V28) (+) Nevus Clinical information reviewed: Tobacco Allergies Meds Med Hx Surg Hx Fam Hx Soc Hx Anesthesia Plan ASA 3 Anesthesia Plan: general General Anesthesia Considerations: ETT Anesthesia Risks Discussed dental injury, allergic reaction, serious complications, nausea, pain, sore throat and corneal abrasion Plan Factors Patient is not a current smoker Induction method: intravenous Postoperative administration of opioids is intended. Anesthetic plan and risks discussed with patient. Use of blood products discussed with patient who consented to blood products. Anesthesia Plan discussed with attending. 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 She dislocates and subluxes joints ) (-) hypertension, past MS, CAD, angina ECG reviewed Rhythm: regular Rate: normal ROS comment: EKG Sinus bradycardia Pt follows with cardiology due to kings danlos. 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 Abdominal PONV RISK SCORE: 3 Vitals: 10/02/24 1200 Weight: 63.5 kg (140 lb) Height: 1.6 m (63 ) SpO2 Readings from Last 1 Encounters: No data found for SpO2 No results found for: WBC , RBC , HGB , HCT , PLT , MCV Allergies Allergen Reactions Adhesive Tape-Silicones Rash localized Erythromycin Rash Latex Rash Localized;Pt reports latex sensitivity, gets rash with use Other Other (No Interaction Warnings)-Blood product alert: patient with IgA deficiency Tylenol [Acetaminophen] Liver function tests abnormal STOP BANG: No data recorded NPO Status: Time of Last Liquid: 2358 Time of Last Solid: 2199 documented in this encounter Plan of Treatment Upcoming Encounters Date Type Department Care Team (Late st Contact Info) Description 10/24/2024 1:30 PM EDT Office Visit Plastic & Reconstructive Surgery [facility] [address] [place] [phone] [address]h [address] [phone] 12/09/2024 1:00 PM EDT Appointment [facility] Xray [address] [place] [phone] documented as of this encounter Procedures Procedure Name Priority Date/Time Associated Diagnosis Comments TH AN ENDOTRACHEAL(NO CHARGE) Routine 10/16/2024 8:08 AM EDT documented in this encounter Results * TH AN ENDOTRACHEAL(NO CHARGE) (10/16/2024 8:08 AM EDT) Tenzin Rodriguez DO - 10/16/2024 8:08 AM EDT Tenzin Angulo DO 10/17/2024 8:20 AM General Information and Staff Patient location during procedure: OR Anesthesiologist: Tenzin Angulo DO Resident/BRYOLOGIST: Brooks Mello CRNA Performed: resident/BRYOLOGIST/CAA Performed by: Brooks Mello CRNA Authorized by: Tenzin Angulo DO Intubation Airway not difficult Urgency: elective Final Airway Details Successful airway: ETT Cuffed: yes Successful intubation technique: direct laryngoscopy Facilitating devices/methods: intubating stylet Endotracheal tube insertion site: oral Blade: Mehul Blade size: #3 ETT size (mm): 7.0 Cormack-Lehane Classification: grade I - full view of glottis Placement verified by: chest auscultation and capnometry Cuff volume (mL): 7 Measured from: lips ETT to lips (cm): 21 Number of attempts at approach: 1Final airway type: endotracheal airway Indications and Patient Condition Indications for airway management: anesthesia Spontaneous Ventilation: absent Sedation level: Yes Preoxygenated: yes Soft Tissue Damage: No Dentition Unchanged: Yes Patient position: sniffing MILS maintained throughout Mask difficulty assessment: 1 - vent by mask Tenzin Angulo DO ANESTHESIA ORDERABLES Edited Re sult - Final documented in this encounter Visit Diagnoses Not on filedocumented in this encounter Administered Medications Inactive Administered Medications - up to 3 most recent administrations Medication Order MAR Action Action Date Dose Rate Site ceFAZolin (ANCEF) 2 g in sterile water 20 mL IV syringe 2 g, intravenous, Administer over 3 Minutes, Once, On Nikia 10/16/24 at 0645, For 1 dose, Preprocedure, -IV Push over 3 minutes -Administer within 60 minutes of incision, Indication: Prophylaxis-Surgical New Bag 10/16/2024 7:57 AM EDT 2 g dexAMETHasone (DECADRON) injection intravenous, As needed, Starting on Nikia 10/16/24 at 0753, Anesthesia Intraprocedure Given 10/16/2024 7:53 AM EDT 4 mg diphenhydrAMINE (BENADRYL) injection intravenous, As needed, Starting on Nikia 10/16/24 at 0758, Anesthesia Intraprocedure Given 10/16/2024 7:58 AM EDT 25 mg fentaNYL (PF) (SUBLIMAZE) injection intravenous, As needed, Starting on Nikia 10/16/24 at 0743, Anesthesia Intraprocedure Given 10/16/2024 7:43 AM EDT 100 mcg glycopyrrolate (ROBINUL) injection intravenous, As needed, Starting on Nikia 10/16/24 at 0746, Anesthesia Intraprocedure Given 10/16/2024 7:46 AM EDT 0.3 mg HYDROmorphone (DILAUDID) injection intravenous, As needed, Starting on Nikia 10/16/24 at 0842, Anesthesia Intraprocedure Given 10/16/2024 8:42 AM EDT 1 mg ketamine (KETALAR) injection intravenous, As needed, Starting on Nikia 10/16/24 at 0906, Anesthesia Intraprocedure Given 10/16/2024 9:06 AM EDT 50 mg lactated Ringer's infusion 75 mL/hr, intravenous, Continuous, Starting on Nikia 10/16/24 at 0700, Preprocedure New Bag 10/16/2024 10:09 AM EDT Restarted 10/16/2024 7:39 AM EDT New Bag 10/16/2024 7:33 AM EDT 75 mL/hr 75 mL/hr Le ft Hand lidocaine (PF) (XYLOCAINE-MPF) 2 % injection injection, As needed, Starting on Nikia 10/16/24 at 0747, Anesthesia Intraprocedure Given 10/16/2024 7:47 AM EDT 100 mg metoclopramide (REGLAN) injection intravenous, As needed, Starting on Nikia 10/16/24 at 0830, Anesthesia Intraprocedure Given 10/16/2024 8:30 AM EDT 10 mg midazolam (VERSED) injection intravenous, As needed, Starting on Nikia 10/16/24 at 0737, Anesthesia Intraprocedure Given 10/16/2024 7:37 AM EDT 2 mg ondansetron (PF) (ZOFRAN) injection intravenous, As needed, Starting on Nikia 10/16/24 at 0753, Anesthesia Intraprocedure Given 10/16/2024 7:53 AM EDT 4 mg propofoL (DIPRIVAN) injection intravenous, As needed, Starting on Nikia 10/16/24 at 0747, Anesthesia Intraprocedure Given 10/16/2024 7:47 AM EDT 20 0 mg rocuronium (ZEMURON) injection intravenous, As needed, Starting on Nikia 10/16/24 at 0747, Anesthesia Intraprocedure Given 10/16/2024 8:27 AM EDT 50 mg Given 10/16/2024 7:47 AM EDT 50 mg sugammadex (BRIDION) 100 mg/mL injection intravenous, As needed, Starting on Nikia 10/16/24 at 1008, Anesthesia Intraprocedure Given 10/16/2024 10:08 AM EDT 2 00 mg documented in this encounter Care Teams Logistics Account Manager Relationship Specialty Start Date End Date Jo Ann Hebert PA [address] [place] [address], [address] [place] [address] PCP - General 08/25/24 documented as of this encounter
[2024-10-21 12:33] VITALS: BP 106/64; PULSE 58; O2SAT 95
--- NOTE | 2024-10-21 12:33 | A.OFFVIS_ITS ---
Vital Signs 10/21/24 12:33 Height 5 ft 3 in BP 106/64 Blood Pressure Location Rt brachial Position Sitting Pulse 58 Pulse Source Pulse Oximeter Pulse Oximetry (%) 95 Oxygen Delivery Method Room Air Intake Visit Reasons: Urgent - daily migraines Intake Note: Migraines Paper Box Cutter Required: No Accompanied by: Sister Allergies hydroxychloroquine (From Plaquenil) Allergy (Intermediate, Verified 10/21/24 12:33) Vomiting leflunomide Allergy (Intermediate, Verified 10/21/24 12:33) Diarrhea adhesive tape Allergy (Unknown, Verified 10/21/24 12:33) Unknown erythromycin base (ERYTHROMYCIN BASE) Allergy (Unknown, Verified 10/21/24 12:33) UNKNOWN latex (LATEX) Allergy (Unknown, Verified 10/21/24 12:33) UNKNOWN acetaminophen (From Tylenol) Adverse Reaction (Unknown, Verified 10/21/24 12:33) elevates LFT's Medication List - Last Reconciled 10/21/24 by Nury Up MD [AFO As directed] apremilast (Otezla) 30 mg PO BID atogepant (Qulipta) 60 mg PO DAILY cephalexin 500 mg PO QID colchicine 0.6 mg PO BID 30 days cyclosporine 0.05% (Restasis) 1 drp ophthalmic (eye) BID dextroamphetamine-amphetamine 10 mg ER (Adderall XR) 1 cap PO QAM dextroamphetamine-amphetamine 20 mg 1 tab PO BID diazepam 5 mg PO TID PRN dicyclomine 20 mg (2 x 10 mg) PO BID PRN 90 days docusate sodium 100 mg PO BID duloxetine 60 mg PO DAILY duloxetine 30 mg PO DAILY epinephrine (EpiPen) 0.3 mg (0.3 mL) IM Q10M PRN famotidine 20 mg PO BID gabapentin 1 tab at bedtime 3 days and titrate to bid for 3 days then tid orally 3 times a day; glucosamine-chondroitin 250-200 mg (Osteo Bi-Flex) 2 tabs PO BID leg brace (Knee Support Brace) wear as directed. Bilateral knee hinged brace with patella stabilization. Dx: Kings-Danlos Syndrome lidocaine 5% 1 appl topical BID PRN lidocaine HCl 2% 1 appl topical BID-TID PRN Magic Mouthwash Diphen/Lido/Antacid 1:1:1 240 mL orally; Lidocaine Viscous 2 % 80mL; diphenhydramine 12.5 mg/5 mL 80mL; aluminum-mag hydrox-simeth [id number]/5mL 80mL Swish, gargle and split 5 mL every 4-6 hours as needed. metoclopramide HCl 5 mg PO TID PRN minoxidil 1.25 mg PO BEDTIME mupirocin 2% 1 appl topical BID PRN nabumetone 500 mg PO BID 30 days ondansetron 4 mg PO BID PRN oxycodone 10 mg PO Q8H prednisolone acetate 1% 1 drp ophthalmic (eye) DAILY prucalopride (Motegrity) 1 mg PO DAILY 90 days Shower Chair As directed tizanidine 4 mg PO Q8H PRN [transfer bench As directed] ubrogepant (Ubrelvy) 50 mg PO ONCE PRN walker (Ultra-Light Rollator misc) As directed [wheelchair As directed] HPI Comments Details: 34y/o female comes for urgent f/u of Migraines. She reports daily headaches , severe photophobia. phonophobia , nausea, vomiting.Her gabapentin was tapered off as she thought it was affecting her cognition. she has been completely off gabapentin for past 2 years. Her fibromyalgia pain has worsened. she had panniculectomy last week and still has a drain and is on antibiotics History from initial visit 08/14/24 -she started having significant headaches for over 10 years. The headaches are typically in bioccipital and bitemporal region usually preceded by visual aura ( flashing lights ). The headaches are pounding pressure, photophobia, phonophobia , nausea, blurry vision , vomiting, eye pain. . the migraines are 1-2 /week and last 1-2 days she also has regular headaches- milder throbbing headaches everyday. she treats with ibuprofen . she used to be fioricet , ubrelvy- both helped and insurance did not cover. she takes gabapentin for paresthesias . Sumatriptan , rizatriptan and almotriptan - she could not tolerate Propranolol did not help- she also has low blood pressure and heart rate she was seen at [facility] for migraines in the past. she has episodes , feels like her face is droopy and unilateral ptosis with migraines she was diagnosed with Behcets 2 years ago by [employer]. 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 and uses wheelchair or walker to prevent falls she sees [facility] for chronic back pain she has right Carpal tunnel and had 2 surgeries. 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] Personal history of malignant melanoma of skin Muscle spasm of back Generalized anxiety disorder Major depressive disorder, single episode, in full remission Surgical History Hx of cystoscopy History of facial surgery H/O colonoscopy Hx of local excision of skin lesion History of esophagogastroduodenoscopy (EGD) H/O right wrist surgery Hx laparoscopic cholecystectomy (10/22/23) Hx of tonsillectomy History of appendectomy Social History Household Members: Spouse and Family Housing: House Are you a primary pharmacist critical care to a significant other at home: No Do you presently have visiting nurse or other home services: No Alcohol intake: current Alcohol intake frequency: does not drink Patient Tobacco Use Status: Former Tobacco user Tobacco use type: Cigarette e-Cigarette/Vaping Use: Currently Using Second Hand Smoke Exposure: Yes Substance Use Type: Marijuana Advance Directives Date on File: 10/29/23 service: No Current occupational status: disabled Cognitive needs: Yes (Wheelchair, Walker, Cane) Hearing needs: No Vision needs: Yes (Glasses) Female Reproductive History Menstrual Age of Menarche: 10 Physical Exam Vital Signs: Last Vital Signs Pulse 58 10/21/24 12:33 BP 106/64 10/21/24 12:33 Pulse Ox 95 10/21/24 12:33 Oxygen Delivery Method Room Air 10/21/24 12:33 Assessment & Plan Assessment & Plan (1) Chronic migraine with aura: Comment: with epsidoes of ptosis and right face weakness complex medical history- Behcets , Ehler Danlos Code(s): G43.E09 - Chronic migraine with aura, not intractable, without status migrainosus Category: Medical Qualifiers: Status migrainosus presence: without status migrainosus Intractability: intractable Qualified Code(s): G43.E19 - Chronic migraine with aura, intractable, without status migrainosus (2) Behcet disease with multisystem involvement: Code(s): M35.2 - Behcet's disease Category: Medical Plan MRI brain to r/o structural causes- reviewed - non focal Restart gabapentin 800mg qhs and titrate tid qulipta 60mg qd for prophylaxis ubrelvy 50 mg prn Medications tried - Abortive- ibuprofen tylenol fiorciet ubrelvy sumatriptan Rizatriptan Prophylactic medications- propranolol gabapentin cymbalta Schedule for emg LE to evaluate neuropathy Medications: New atogepant (Qulipta) 60 mg PO DAILY 60 tabs 1RF gabapentin 1 tab at bedtime 3 days and titrate to bid for 3 days then tid orally 3 times a day; 90 tabs 3RF Discontinued atogepant (Qulipta) Discontinued Reason: Stopped on Transfer 30 mg PO DAILY 30 tabs 3RF Coding Level of Care Code Est Pt Level 4 (11880) Diagnoses Intractable chronic migraine with aura and without status migrainosus G43.E19 Status migrainosus presence: without status migrainosus Intractability: intractable Behcet disease with multisystem involvement M35.2
--- OUTSIDE RECORDS SUMMARY | 2024-10-21 14:50 | XMS_ITS | Clinical Summary ---
Author Organization [facility] Address [address] [place] [address] Care Team Providers Care Area Loss Prevention Manager Name Role Phone Ana Cortez Primary [...] Assessment & Plan: Will be scheduled with [facility] GI. Saw Dr. Reyes who [...] Years) (1 of 2 - PCV) 01/07/2008 Alcohol/Substance Use Screening 02/13/2024 Depression Screening and Follow-Up 02/13/2024 Social Drivers of Health Annual Screening 02/13/2024 COVID-19 Vaccine (1 - 2023- season) 2024 Influenza Vaccine (#1) 2024 DTaP,Tdap,and Td Vaccines (2 - Td or Tdap) 10/12/2025 10/13/2015 RSV Vaccine (60+ years old a nd patients) (1 - 1-dose 75+ series) 01/07/2064 Insurance [employer] Care Teams Area Loss Prevention Manager Relationship Specialty Start Date End Date Ana Cortez [address] [place] [address] PCP - General 04/10/23
--- OUTSIDE RECORDS SUMMARY | 2024-10-21 14:50 | XMS_ITS | Encounter Summary ---
Author Organization [facility] Address [facility] [address] [place] [phone] Phone Care Team Providers Care Still Operator Name Role Phone Pcp, Unknown Primary Care Provider Unavailabl e Pcp, Unknown Primary Care Provider Unavailabl e Jo Ann Hebert Primary Care Provide r Encounter Details Date Type Department Care Team (Late st Contact Info) Description 04/15/2022 Procedure Pass [facility], Ct Scan - [address] [address] Social History Tobacco Use Types Packs/Day Years [...] 04/15/2022 7:37 PM Glenny Brothers RN * [place] Suicide Severity Rating Scale (Screener/Recent Self-Report) Question [...] documented as of this encounter Care Teams Still Operator Relationship Specialty Start Date End Date Pcp, Unknown PCP - General 04/15/22 04/11/23 Pcp, Unknown PCP - General 04/12/23 10/02/24 Jo Ann Hebert PA [address] [place] [address] [place] [address] PCP - General Physician Payable Processor 10/03/24 documented as of this encounter Additional Source Comments The information contained in this document represents components of the legal health record. It is not the complete legal health record.[facility]
--- OUTSIDE RECORDS SUMMARY | 2024-10-21 14:50 | XMS_ITS | Clinical Summary ---
Author Organization [facility] Address [facility] [address] Phone Care Team Providers Care Gas Inspector Name Role Phone Jo Ann Hebert Primary [...] 4 tablet, 0 Refills, Maintenance, 03/06/22 14:34:00 [id number], Partial fill upon patient request if the [...] Conservative therapy not effective. Patient noting decreased turbo generator oiler strength and progressive pain. -will refer to [...] 9:20 AM EDT): Will be scheduled with [facility] GI. Saw Dr. Reyes who recommended [...] (04/20/2019 2:05 PM EDT): Possible GI vs BILL COLLECTOR etiology. S/p appendectomy-possible adhesion formation, endometriosis. -will obtain CT abdomen/pelvis. Has not had one since onset of pain -urgent referral to BILL COLLECTOR to discuss pain/recent u/s with possible retained [...] 2017. She would like referral to new fiberglass container winding operator given her recent bad experience with criss [...] PAP SMEAR 2010 DEPRESSION SCREENING 04/16/2020 04/17/2019 INFLUENZA VACCINE (#1) 2024 COVID-19 VACCINE (1 - 2023-2 5 season) 2024 Adult Td,Tdap Booster 10/12/2025 10/13/2015 SCREENING [...] topic Medical Devices Not on file [place] [address] [place] [address] [place] [address] [place] [address] [place] [address] [place] [address] [place] [address] [facility] ACO Care Teams Gas Inspector Relationship Specialty Start Date End Date Jo Ann Hebert PA [address] [place] [address] [place] [address] PCP - General Physician Spare Person 10/03/24 Additional Source Comments The information contained in this document represents components of the legal health record. It is not the complete legal health record.[facility]
--- OUTSIDE RECORDS SUMMARY | 2024-10-21 14:50 | XMS_ITS | Clinical Summary ---
Author Organization [facility] Address [address] [place] [address] Care Team Providers Care Needle Loom Operator Helper Name Role Phone Ana Cortez NP Primary Care Provider [phone] Allergies Active Allergy Reactions Criticality Noted Date [...] age to complete this topic Care Teams Needle Loom Operator Helper Relationship Specialty Start Date End Date Ana Cortez NP [address] [address] PCP - General Family Medicine 09/21/22
--- OUTSIDE RECORDS SUMMARY | 2024-10-21 14:50 | XMS_ITS | Encounter Summary ---
Author Organization [facility] Address [address] [place] [address] Phone Care Team Providers Care Community Coordinator For [employer] Name Role Phone Pcp, Unknown Primary Care Provider Jo Ann Mg Primary Care Provide r Encounter Details Date Type Department Care Team (Late st Contact Info) Description 04/12/2023 Procedure Pass [facility], Ct Scan - [facility] [address] [place] [address] Social History Tobacco Use Types Packs/Day Years [...] 04/12/2023 9:23 PM Lucille Shah RN * [place] Suicide Severity Rating Scale (Screener/Recent Self-Report) Question [...] documented as of this encounter Care Teams Community Coordinator [employer] Relationship Specialty Start Date End Date Pcp, Unknown PCP - General 04/12/23 10/02/24 Jo Ann Hebert PA [address] [place] [address] [place] [address] PCP - General Physician Carpet Inspector 10/03/24 documented as of this encounter Additional Source Comments The information contained in this document represents components of the legal health record. It is not the complete legal health record.[facility]
--- OUTSIDE RECORDS SUMMARY | 2024-10-21 14:51 | XMS_ITS | Encounter Summary ---
Author Organization [facility] Address [facility] [facility] [address] [place] [address] Phone Care Team Providers Care Small Engine Mechanic Name Role Phone Nilda Watson Unavailable Octavio Castillo MD Primary Care Provider [phone] Octavio Castillo MD Unavailable [phone] Maryam Wu MD Primary Care Provid er Glenny Dyson NP Primary Care Provider + Yair Gallo MD Primary Care Provider Glenny Dyson HARD ROCK MINER BLASTING Primary Care Provider + Pcp, Unknown Primary Care Provider Unavailabl e Pcp, Unknown Primary Care Provider Unavailabl e Jo Ann Hebert Primary Care Provide r Encounter Details Date Type Department Care Team (Late st Contact Info) Description 04/26/2020 Ancillary Orders Virtual Department [address] [place] [address] [address] [phone] viral [email or web address] Social History Tobacco Use Types [...] documented as of this encounter Care Teams Small Engine Mechanic Relationship Specialty Start Date End Date Nilda Watson PA [address] [place] [phone] [email or web address] PCP - Resident PCP 04/11/19 07/14/21 Octavio Castillo MD [address] [place] [address], [address] [place] [address] [email or web address] PCP - General Internal Medicine 07/10/19 07/14/21 Maryam Wu MD [address] [place] [address] [place] [phone] [email or web address] PCP - General Family Medicine 07/15/21 03/05/22 Glenny Dyson NP [address] [place] [address] PCP - General Nurse Practitioner 03/06/22 03/15/22 Yair Gallo MD [address] [place] [address] PCP - General Internal Medicine 03/16/22 03/16/22 [place] [address] PCP - General Nurse Practitioner 03/17/22 04/14/22 Pcp, Unknown PCP - General 04/15/22 04/11/23 Pcp, Unknown PCP - General 04/12/23 10/02/24 Jo Ann Hebert PA [address] [place] [address] PCP - General Physician Business Account Executive 10/03/24 Octavio Castillo MD [address] [place] [address], [address] [place] [address] [email or web address] Insurance Assigned Provider 08/18/19 11/20/20 documented as of this encounter Additional Source Comments The information contained in this document represents components of the legal health record. It is not the complete legal health record.[facility]
--- OUTSIDE RECORDS SUMMARY | 2024-10-21 14:51 | XMS_ITS | Encounter Summary ---
Author Organization [facility] Address [facility] [address] [place] [address] Phone Care Team Providers Care Psychologist Developmental Name Role Phone Glenny Dyson NP Primary Care Provider + Pcp, Unknown Primary Care Provider Unavailabl e Pcp, Unknown Primary Care Provider Unavailabl e Jo Ann Hebert Primary Care Provide r Encounter Details Date Type Department Care Team (Late st Contact Info) Description 03/17/2022 Procedure Pass [facility] Admitting Dept Virtual Department [address] [place] [phone] Social History Tobacco Use Types Packs/Day Years [...] documented as of this encounter Care Teams Psychologist Developmental Relationship Specialty Start Date End Date Glenny Dyson NP [address] [place] [address] PCP - General Nurse Practitioner 03/17/22 04/14/22 Pcp, Unknown PCP - General 04/15/22 04/11/23 Pcp, Unknown PCP - General 04/12/23 10/02/24 Jo Ann Hebert PA [address] [place] [address] PCP - General Physician Chainstitch Pants Outseamer 10/03/24 documented as of this encounter Additional Source Comments The information contained in this document represents components of the legal health record. It is not the complete legal health record.[facility]
--- OUTSIDE RECORDS SUMMARY | 2024-10-21 14:51 | XMS_ITS | Clinical Summary ---
Author Organization [address] Address [address] [place] [phone] Phone Care Team Providers Care Communication Lecturer Name Role Phone Jo Ann Hebert Primary Care Provider [phone] Allergies Active Allergy Reactions Criticality Noted Date Comments Adhesive Tape-Silicones Rash 05/04/2011 Localized-JUST ADHESIVE TAPE Erythromycin Rash 01/18/2006 Latex Rash 07/04/2016 Localized;Pt [...] mouth 1 (one) time each day. Active gabapentin (NEURONTIN) 600 mg tablet Take 1 tablet (600 mg total) by mouth 3 (three) times a day. Active colchicine (COLCRYS) 0.6 mg tablet Take 1 tablet (0.6 mg total) by mouth 1 (one) time each day. Active tiZANidine (ZANAFLEX) 2 mg capsule Take 1 capsule (2 mg total) by mouth 4 (four) times a day. 1-2 CAPSULES Active diazePAM (VALIUM) 5 mg tablet Take 1 tablet (5 mg total) by mouth every 8 (eight) hours if needed for anxiety. Active desoximetasone (TOPICORT) 0.05 % cream Apply [...] a day if needed for severe pain. Active amphetamine-de xtroamphetamin e (ADDERALL) 20 mg tablet Take 1 tablet (20 mg total) by mouth 2 (two) times a day. Max Daily Amount: 40 mg Active tacrolimus (PROTOPIC) 0.1 % ointment Apply topically 2 (two) times a day. Active LORazepam (ATIVAN) 1 mg tablet Take [...] LONE ORAL Take by mouth. 025 Discontinued tacrolimus (ENVARSUS XR) 0.75 mg extended release tablet Take 0.14 mg/kg by mouth 1 (one) time each day. 025 Discontinued(En tered in Error) cephalexin (KEFLEX) 500 mg capsule Take 1 capsule (500 mg total) by mouth 4 (four) times a day for 7 days. 28 each 10/07/19 25 025 Discontinued docusate sodium (COLACE) 100 mg capsule Take 1 capsule (100 mg total) by mouth 2 (two) times a day for 10 days. 20 each 10/07/19 25 025 ondansetron (ZOFRAN) 4 mg tablet Take 1 tablet (4 mg total) by mouth every 8 (eight) hours if needed for nausea or vomiting for up to 7 days. 20 tablet 10/07/19 25 025 oxyCODONE (ROXICODONE) 5 mg immediate release tabletIndicati ons:Abdominal pannus Take 1 tablet (5 mg total) by mouth every 4 (four) hours if needed for severe pain for up to 10 days. Max Daily Amount: 30 mg 40 each 10/07/19 25 025 cephalexin (KEFLEX) 500 mg capsule Take 1 capsule (500 mg total) by mouth 4 (four) times a day for 14 days. 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 Abdominal pannus 08/27/2024 Intertrigo 08/27/2024 Abrasion of labia minora 08/27/2024 Erythema intertrigo 08/27/2024 Morbid obesity with BMI of 4 0.0-44.9, adult ([facility] V24, [facility] V28) 11/23/2023 Allergic conjunctivitis of both eyes 06/19/2019 Perennial allergic rhinitis 06/19/2019 Arthralgia 04/09/2019 Lower abdominal pain 04/09/2019 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, [facility]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 Biopsies Abdominal ultrasound 03/31/17 wnl Asthma 09/24/2013 Encounters Date Type Department Care Team Description 10/16/2024 7:39 AM EDT Anesthesia Event [facility] Main OR [address] [place] [address] Tenzin Angulo DO 10/16/2024 7:30 AM EDT - 10/16/2024 11:[address] [facility] [place] [address] [place] [address] Arturo Albarran DO PANNICULECTOMY [01394 (CPT )] 10/16/2024 6:15 AM EDT - 10/16/2024 2:26 PM EDT Hospital Encounter [facility] [place] [address] [place] [address] Arturo Albarran DO Abdominal pannus; Abrasion of labia minora, sequela; Erythema intertrigo Discharge Disposition: Home or Self Care 10/06/2024 11:00 AM EDT Consult Plastic & Reconstructive Surgery [facility] [address] [address] Arturo Albarran DO Abdominal pannus (Primary Dx) 09/30/2024 Telephone General Surgery [facility] [address] [address] Arturo Albarran DO 08/29/2024 Telephone General Surgery [facility] [address] [address] Arturo Albarran DO 08/27/2024 11:00 AM EDT Consult Plastic & Reconstructive Surgery [facility] [address] [address] [place] Abdominal pannus (Primary Dx); Intertrigo; Abrasion of labia minora, sequela; IgA deficiency ([facility] V24, [facility] V28) from Last 3 Months Immunizations Name Administration Dates Next Due Tdap Tetanus diptheria acell ular pertussis (Boostrix; Adacel) 7yo and older 10/13/2015 Surgical History Surgery Date Site/Laterality Comments TONSILLECTOMY PROCEDURE: HISTORICAL TONSILLECTOMY OTHER SURGICAL HISTORY PROCEDURE: REMOVAL OF TMJ CONDYLE APPENDECTOMY PROCEDURE: HISTORICAL APPENDECTOMY ESOPHAGOGASTRODUODENOSCOPY 03/29/15 PROCEDURE: KS EGD TRANSORAL BIOPSY SINGLE/MULTIPLE; COMMENT: mild distal [...] Mass Index 24.62 10/16/2024 6:53 AM EDT Plan of Treatment Upcoming Encounters Date Type Department Care Team (Late st Contact Info) Description 10/24/2024 1:30 PM EDT Office Visit Plastic & Reconstructive Surgery [facility] [address] [place] [phone] [phone] 12/09/2024 1:00 PM EDT Appointment [facility] Xray [address] [place] [phone] Health Maintenance Due Date Last Done Comments [...] 9:46 AM EDT Erythema intertrigo Abdominal pannus TH AN ENDOTRACHEAL(NO CHARGE) Routine 10/16/2024 8:08 AM EDT KS EXCISION EXCESSIVE SKIN/SUBCUTANEOUS TISSUE OTHER AREA 10/16/2024 7:39 AM EDT Abdominal pannus Erythema intertrigo Special Needs 2HRS WITH 30 MIN CLEAN KS EXCISION EXCESSIVE SKIN SUBQ TISSUE ABD INFRAUMBILICAL PANNICULECTOMY 10/16/2024 7:39 AM EDT Abdominal pannus Erythema intertrigo Special Needs 2HRS WITH 30 MIN CLEAN PROTHROMBIN TIME WITH INR Routine 10/16/2024 6:44 AM EDT Abdominal pannus Abrasion of labia minora, sequela ACTIVATED PARTIAL THROMBOPLASTIN TIME Routine 10/16/2024 6:44 AM EDT Abdominal pannus Abrasion of labia minora, sequela BASIC METABOLIC PANEL Routine 10/16/2024 6:44 AM EDT Abdominal pannus Abrasion of labia minora, sequela LIPID PANEL Routine 04/18/2018 HM HIV SCREENING Routine 06/14/2017 PAP SMEAR Routine 06/13/2017 from Last 3 Months or Most Recently Relevant to Health Maintenance Results * Tissue exam (10/16/2024 9:46 AM EDT) Final Diagnosis Vulva, right labia minora, labiaplasty: Benign squamous epithelial-lined tissue without hair follicles, consistent with labium minus No significant pathologic change identified 10/17/2024 10:57 AM EDT [facility] Gross Description A. Vulva, right labia minora skin: Labeled vagina, right lab . Received in formalin is a 4.4 x 1.7 x 0.8 cm irregular wells-white rubbery portion of skin and subcutaneous tissue. The cut surfaces are wells-white and edematous. No mass lesions are appreciated. Security Program Manager sections are submitted in one cassette, two pieces. LEONA 10/17/2024 10:57 AM EDT [facility] Disclaimer Unless otherwise specified, all tissue is 10% NB formalin fixed and paraffin embedded. 10/17/2024 10:57 AM EDT [facility] Tissue Vulval structure / Unknown 10/16/2024 9:46 AM EDT 10/16/2024 12:21 PM EDT us Arturo Albarran DO LAB PATHOLOGY ORDERABLES Fin al Result [facility] [address] [place] [address], * TH AN ENDOTRACHEAL(NO CHARGE) (10/16/2024 8:08 AM EDT) Tenzin Rodriguez DO - 10/16/2024 8:08 AM EDT Tenzin Angulo DO 10/17/2024 8:20 AM General Information and Staff Patient location during procedure: OR Anesthesiologist: Tenzin Angulo DO Resident/HELPER/DRIVER: Brooks Mello CRNA Performed: resident/HELPER/DRIVER/CAA Performed by: Brooks Mello CRNA Authorized by: [...] ANESTHESIA ORDERABLES Edited Re sult - Final * Activated partial thromboplastin time (10/16/2024 6:44 AM EDT) aPTT 35.0 24.1 - 39.3 sec LAB COAGULATION METHOD 10/16/2024 7:09 AM EDT [facility] Blood Venous blood specimen / Unknown Venipuncture / Unknown 10/16/2024 6:44 AM EDT 10/16/2024 6:51 AM EDT Arturo Albarran DO LAB BLOOD ORDERABLES Final R esult [facility] [address] [place] [address], [place] [phone] * Prothrombin time with INR (10/16/2024 6:44 AM EDT) Protime 11.7 10.6 - 13.9 sec LAB COAGULATION METHOD 10/16/2024 7:09 AM EDT [facility] INR 0.9 LAB COAGULATION METHOD 10/16/2024 7:09 AM [facility] Blood Venous blood specimen / Unknown Venipuncture / Unknown 10/16/2024 6:44 AM EDT 10/16/2024 6:51 AM EDT Arturo Albarran DO LAB BLOOD ORDERABLES Final R esult [facility] [address] [place] [address], * BMP (10/16/2024 6:44 AM EDT) Sodium 140 133 - 145 mmol/L LAB CHEMISTRY METHOD 10/16/2024 7:14 AM [facility] Potassium 4.1 3.5 - 5.5 mmol/L LAB CHEMISTRY METHOD 10/16/2024 7:14 AM [facility] Chloride 105 96 - 110 mmol/L LAB CHEMISTRY METHOD 10/16/2024 7:14 AM [facility] CO2 31 21 - 32 mmol/L LAB CHEMISTRY METHOD 10/16/2024 7:14 AM [facility] Anion Gap 4 3 - 11 LAB CHEMISTRY METHOD 10/16/2024 7:14 AM [facility] Glucose 78 70 - 100 mg/dL LAB CHEMISTRY METHOD 10/16/2024 7:14 AM [facility] BUN 11 5 - 25 mg/dL LAB CHEMISTRY METHOD 10/16/2024 7:14 AM [facility] Creatinine 0.69 0.50 - 1.10 mg/dL LAB CHEMISTRY METHOD 10/16/2024 7:14 AM [facility] eGFR 116 >=60 mL/min/1. 73m2 LAB CHEMISTRY METHOD 10/16/2024 7:14 AM [facility] Comment:Calculation based on the Chronic Kidney Disease Epidemiology Collaboration (CKD-EPI) equation refit without adjustment for race. BUN/Creatinine Ratio 15.9 LAB CHEMISTRY METHOD 10/16/2024 7:14 AM EDT [facility] Calcium 9.3 8.5 - 10.5 mg/dL LAB CHEMISTRY METHOD 10/16/2024 7:14 AM EDT [facility] Blood Venous blood specimen / Unknown Venipuncture / Unknown 10/16/2024 6:44 AM EDT 10/16/2024 6:51 AM EDT Arturo Albarran DO LAB BLOOD ORDERABLES Final R esult [facility] [address] [place] [address], [place] [phone] * (ABNORMAL) Lipid panel (04/18/2018) LDL/HDL Ratio [...] RESULTING AGENCY - 06/20/2017 4:55 PM EDT [id number] THINPREP PAP, IMAGED AND CELL BLOCK: NEGATIVE [...] Most Recently Relevant to Health Maintenance Insurance [facility] PL[facility] MEDICAID - [place] Advance Directives * Full Code - Default (Latest Code Status on File) Date Activated Date Inactivated Comments 10/16/2024 6:27 AM 10/16/2024 4:28 PM This is order is used when code status has not been discussed with the patient, or code status is otherwise unknown/unconfirmed To update the patient's code status, place a code status order. Do not modify or discontinue any currently active code status orders. Care Teams Communication Lecturer Relationship Specialty Start Date End Date Jo Ann Hebert PA [address] [place] [address], [address] [place] [address] PCP - General 08/25/24
--- OUTSIDE RECORDS SUMMARY | 2024-10-21 14:51 | XMS_ITS | Encounter Summary ---
Author Organization [facility] Address [address] [place] [address] Care Team Providers Care Ruffling Hemmer Automatic Name Role Phone Ana Cortez Primary Care Provider [phone] Encounter Details Date Type Department Care Team (Late st Contact Info) Description 08/11/2022 Orders Only [facility] [address] [place] [address] Brenda Willard, DO [address] [place], [place] [phone] Social History Tobacco Use Types Packs/Day Years [...] on filedocumented in this encounter Care Teams Ruffling Hemmer Automatic Relationship Specialty Start Date End Date Ana Cortez [address] [place] [address] PCP - General 04/10/23 documented as of this encounter
--- OUTSIDE RECORDS SUMMARY | 2024-10-21 14:51 | XMS_ITS | Encounter Summary ---
Author Organization [facility] Address [facility] [employer] [address] [place] [address] Phone Care Team Providers Care Machine Chain Maker Name Role Phone Glenny Dyson NP Primary Care Provider + Pcp, Unknown Primary Care Provider Unavailabl e Pcp, Unknown Primary Care Provider Unavailindiana e Jo Ann Hebert Primary Care Provide r Encounter Details Date Type Department Care Team (Late st Contact Info) Description 03/22/2022 Procedure Pass [facility], Ct Scan - [address] [address] Social History Tobacco Use Types Packs/Day Years [...] 2:47 AM EST Kevin Luo RN * [place] Suicide Severity Rating Scale (Screener/Recent Self-Report) Question [...] documented as of this encounter Care Teams Machine Chain Maker Relationship Specialty Start Date End Date Glenny Dyson NP [address] [place] [address] PCP - General Nurse Practitioner 03/17/22 04/14/22 Pcp, Unknown PCP - General 04/15/22 04/11/23 Pcp, Unknown PCP - General 04/12/23 10/02/24 Jo Ann Hebert PA [address] [place] [address] PCP - General Physician Agency Owner 10/03/24 documented as of this encounter Additional Source Comments The information contained in this document represents components of the legal health record. It is not the complete legal health record.[facility]
== END 2024-10-21 14:33 | disposition home or self-care (01) ==
LOC: HO.HSMS 12:30
PROVIDERS: Visit Provider Psychiatry & Neurology Neurology
DX: G43.E19 Chronic migraine with aura, intractable, without status migrainosus (principal); M35.2 Behcet's disease
CPT/HCPCS: 99214

== ENCOUNTER → 2024-10-21 12:30 | Outpatient (BNVA) | payer OTHER, SELFPAY | PROVIDERS: Visit Provider Psychiatry & Neurology Neurology | DX: G43.E19 Chronic migraine with aura, intractable, without status migrainosus (principal); M35.2 Behcet's disease | CPT/HCPCS: 99212 ==

== ENCOUNTER 2024-11-04 | Outpatient (REF) | payer OTHER, SELFPAY ==
--- OUTSIDE RECORDS SUMMARY | 2024-11-24 10:14 | XMS_ITS | Encounter Summary ---
Author Organization [facility] Address [facility] hospital [facility] [employer] [facility] [address] [place] [address] Phone Care Team Providers Care Multimedia Artist Name Role Phone Glenny Dyson NP Primary Care Provider + Pcp, Unknown Primary Care Provider Unavailabl e Pcp, Unknown Primary Care Provider Unavailabl e Jo Ann Hebert Primary Care Provide r Encounter Details Date Type Department Care Team (Late st Contact Info) Description 03/17/2022 Procedure Pass [facility] Endoscopy Admitting Dept Virtual Department [address] [place] [address] Social History Tobacco Use Types Packs/Day Years [...] Care Team (Late st Contact Info) Description 12/04/2024 1:30 PM EDT Office Visit [facility] Orthopedics [facility] [address] [place] [address] Cr Kidd MD [address] [place] [address] [email or web address] documented as of this encounter Visit Diagnoses Not on filedocumented in this encounter Additional Health Concerns Assessment Noted Time PHQ-2 Depression Total Score: 1 04/17/19 20 1:38 PM EST documented as of this encounter Care Teams Multimedia Artist Relationship Specialty Start Date End Date Glenny Dyson NP [address] [place] [address] PCP - General Nurse Practitioner 03/17/22 04/14/22 Pcp, Unknown PCP - General 04/15/22 04/11/23 Pcp, Unknown PCP - General 04/12/23 10/02/24 Jo Ann Hebert PA [address] [place] [address] [place] [address] PCP - General Physician Events Traffic Controller 10/03/24 documented as of this encounter Additional Source Comments The information contained in this document represents components of the legal health record. It is not the complete legal health record.[facility]
--- OUTSIDE RECORDS SUMMARY | 2024-11-24 10:14 | XMS_ITS | Clinical Summary ---
Author Organization [facility] Address [facility] mySBX [address] [address] Phone Care Team Providers Care Coping Machine Operator Name Role Phone Jo Ann Hebert [...] 4 tablet, 0 Refills, Maintenance, 03/06/22 14:34:00 [id number], Partial fill upon patient request if the [...] Conservative therapy not effective. Patient noting decreased boot lace cutter machine strength and progressive pain. -will refer to [...] 9:20 AM EDT): Will be scheduled with [facility] GI. Saw Dr. Reyes who [...] (04/20/2019 2:05 PM EDT): Possible GI vs PEN MAKER etiology. S/p appendectomy-possible adhesion formation, endometriosis. -will obtain CT abdomen/pelvis. Has not had one since onset of pain -urgent referral to PEN MAKER to discuss pain/recent u/s with possible retained [...] 2017. She would like referral to new supervisor inspection and testing given her recent bad experience with criss [...] Encounters Date Type Department Care Team Description 11/11/2024 2:00 PM EDT Office Visit [facility] Department of Orthopaedic Surgery, Sports Medicine Service [address], [address] [place] [address] Jeremiah Leal MD Patellar instability of right knee (Primary Dx); Chronic pain of right knee; Patellar instability of left knee; Old tear of meniscus of right knee, unspecified meniscus, unspecified tear type; EDS (Kings-Danlos syndrome); POTS (postural orthostatic tachycardia syndrome); Behcet's disease; Right foot drop 11/11/2024 1:30 PM EDT - 11/11/2024 11:59 PM EDT Hospital Encounter [facility] [place] [address] Jeremiah Leal MD Discharge Disposition: Home or Self Care 11/11/2024 1:15 PM EDT - 11/11/2024 1:29 PM EDT Hospital Encounter [facility] [place] [address] [place] [address] Jeremiah Leal MD Discharge Disposition: Home or Self Care 11/11/2024 Ancillary Orders [facility] [address] [place] [address] Jeremiah Leal MD 11/11/2024 Ancillary Orders [facility] [address] [place] [address] Jeremiah Leal MD 11/11/2024 Ancillary Orders [facility] [address] [place] [address] Jeremiah Leal MD 11/10/2024 Orders Only [facility] Department of Orthopaedics [address] [place] [address] Jeremiah Leal MD Right knee pain, unspecified chronicity (Primary Dx); Left knee pain, unspecified chronicity 10/12/2024 - 10/12/2024 11:59 PM EDT Hospital Encounter [facility] [address] [place] [address] Jeremiah Leal MD Discharge Disposition: Home or Self Care from Last 3 Months Immunizations Immunization Administration [...] Description 12/04/2024 1:30 PM EDT Office Visit [facility] Orthopedics [facility] [address] [place] [address] Cr Kidd MD [address] [place] [address] [email or web address] Health Maintenance Due Date Last Done Comments SMOKING Hx and SMOKELESS TOBACCO SCREENING 2002 HEPATITIS C SCREENING 2007 HIV ONE-TIME SCREENING (18-6 5 YEARS) 2007 PNEUMOCOCCAL VACCINES (0-49 years) (1 of 2 - PCV) 01/07/2008 DEPRESSION SCREENING 04/16/2020 04/17/2019 PAP SMEAR 06/13/2020 06/13/2017 INFLUENZA VACCINE (#1) 2024 COVID-19 VACCINE (1 - 2024-2 6 season) 2024 Adult Td,Tdap Booster 10/12/2025 10/13/2015 [...] this topic Medical Devices Not on file Procedures Procedure Name Priority Date/Time Associated Diagnosis Comments XR KNEE 3 VIEW (RIGHT) Routine 1:57 PM EDT Right knee pain, unspecified chronicity XR KNEE 1-2 VIEWS (LEFT) Routine 11/11/2024 1:56 PM EDT Left knee pain, unspecified chronicity MRI SPINE MUSCULOSKELETAL FOCUS OUTSIDE (NO INTERPRETATION) Routine 10/12/2024 12:00 AM EDT from Last 3 Months Results * XR KNEE 3 VIEW (RIGHT) (11/11/2024 1:57 PM EDT) Anatomical Region Laterality Modality Knee Right Radiographic Karine ging 11/11/2024 4:22 PM EDT Impressions 11/11/2024 4:29 PM EDT No acute osseous abnormality. Mild right knee patellofemoral joint degenerative change. Moderate joint effusion. ATTESTATION: I, Dr. Spenser Madrigal as teaching physician, have reviewed the images for this case and if necessary edited the report originally created by Medina Dickens. Narrative 11/11/2024 4:29 PM EDT XR KNEE 3 VIEW (RIGHT), XR KNEE 1-2 VIEWS (LEFT) Referring clinician's provided indication for this examination in Epic: Pain COMPARISON: None available. FINDINGS: Left knee: No fracture. Normal alignment. Normal joint spaces. No effusion. Right knee: No fracture. Normal alignment. Minimal patellofemoral joint degenerative change. Moderate effusion. Procedure Note Spenser Madrigal MBBCh BAO - 11/11/2024 XR KNEE 3 VIEW (RIGHT), XR KNEE 1-2 VIEWS (LEFT) Referring clinician's provided indication for this examination in Epic:Pain COMPARISON: None available. FINDINGS: Left knee: No fracture. Normal alignment. Normal joint spaces. No effusion. Right knee: No fracture. Normal alignment. Minimal patellofemoral jointdegenerative change. Moderate effusion. IMPRESSION: No acute osseous abnormality. Mild right knee patellofemoral joint degenerative change. Moderate jointeffusion. ATTESTATION: Dr. Spenser Stinson as teaching physician, have reviewedthe images for this case and if necessary edited the report originallycreated by Medina Dickens. us Jeremiah Leal MD IMG XR LOWER EXTREMITY Final R esult * XR KNEE 1-2 VIEWS (LEFT) (11/11/2024 1:56 PM EDT) Anatomical Region Laterality Modality Knee Left Radiographic Karine ging 11/11/2024 4:22 PM EDT Impressions 11/11/2024 4:29 PM EDT No acute osseous abnormality. Mild right knee patellofemoral joint degenerative change. Moderate joint effusion. ATTESTATION: Dr. Spenser Stinson as teaching physician, have reviewed the images for this case and if necessary edited the report originally created by Medina Dickens. Narrative 11/11/2024 4:29 PM EDT XR KNEE 3 VIEW (RIGHT), XR KNEE 1-2 VIEWS (LEFT) Referring clinician's provided indication for this examination in [facility]: Pain COMPARISON: None available. FINDINGS: Left knee: No fracture. Normal alignment. Normal joint spaces. No effusion. Right knee: No fracture. Normal alignment. Minimal patellofemoral joint degenerative change. Moderate effusion. Procedure Note Spenser Madrigal MBBCh BAO - 11/11/2024 XR KNEE 3 VIEW (RIGHT), XR KNEE 1-2 VIEWS (LEFT) Referring clinician's provided indication for this examination in Epic:Pain COMPARISON: None available. FINDINGS: Left knee: No fracture. Normal alignment. Normal joint spaces. No effusion. Right knee: No fracture. Normal alignment. Minimal patellofemoral jointdegenerative change. Moderate effusion. IMPRESSION: No acute osseous abnormality. Mild right knee patellofemoral joint degenerative change. Moderate jointeffusion. ATTESTATION: I, Dr. Spenser Madrigal as teaching physician, have reviewedthe images for this case and if necessary edited the report originallycreated by Medina Dickens. Jeremiah Leal MD IMG XR LOWER EXTREMITY Final R esult * MRI Spine (Bone) Outside (No Interpretation) (10/12/2024 12:00 AM EDT) Narrative [facility] IMG INTERFACES - 11/11/2024 2:42 PM EDT This study is for PACS storage only and not for interpretation. Jeremiah Leal MD IMG OUTSIDE IMAGING W/OUT INTE RPRETATION Final Result [facility] IMG INTERFACES from Last [address] [place] [address] [place] [address] [place] [address] [place] [address] [place] [address] [place] [address] [place] [address] [place] [address] [place] [address] ACO [facility] ACO Care Teams Coping Machine Operator Relationship Specialty Start Date End Date Jo Ann Hebert PA [address] [place] [address] [place] [address] PCP - General Physician Licensed Embalmer 10/03/24 Additional Source Comments The information contained in this document represents components of the legal health record. It is not the complete legal health record.[facility]
--- OUTSIDE RECORDS SUMMARY | 2024-11-24 10:14 | XMS_ITS | Encounter Summary ---
Author Organization [facility] Address [facility] [employer] [address] [place] [address] Phone Care Team Providers Care Dioramist Name Role Phone Glenny Dyson NP Primary Care Provider + Pcp, Unknown Primary Care Provider Unavailabl e Pcp, Unknown Primary Care Provider Unavailindiana e Jo Ann Hebert Primary Care Provide r Encounter Details Date Type Department Care Team (Late st Contact Info) Description 03/22/2022 Procedure Pass [facility], Ct Scan - [address] [address] Social History Tobacco Use Types Packs/Day Years [...] 2:47 AM EST Kevin Luo RN * [place] Suicide Severity Rating Scale (Screener/Recent Self-Report) Question [...] Description 12/04/2024 1:30 PM EDT Office Visit [facility] Orthopedics [facility] [address] [place] [address] Cr Kidd MD [address] [place] [address] [email or web address] documented as of this encounter Visit Diagnoses Not on filedocumented in this encounter Additional Health Concerns Assessment Noted Time PHQ-2 Depression Total Score: 1 04/17/19 20 1:38 PM EST documented as of this encounter Care Teams Dioramist Relationship Specialty Start Date End Date Glenny Dyson NP [address] [place] [address] PCP - General Nurse Practitioner 03/17/22 04/14/22 Pcp, Unknown PCP - General 04/15/22 04/11/23 Pcp, Unknown PCP - General 04/12/23 10/02/24 Jo Ann Hebert PA [address] [place] [address] [place] [address] PCP - General Physician Mud Jack Nozzleman 10/03/24 documented as of this encounter Additional Source Comments The information contained in this document represents components of the legal health record. It is not the complete legal health record.[facility]
--- OUTSIDE RECORDS SUMMARY | 2024-11-24 10:14 | XMS_ITS | Clinical Summary ---
Author Organization [facility] Address [address] [place] [address] Care Team Providers Care Breading Machine Tender Name Role Phone Ana Cortez NP Primary Care Provider [phone] Allergies Active Allergy Reactions Criticality Noted Date [...] age to complete this topic Care Teams Breading Machine Tender Relationship Specialty Start Date End Date Ana Cortez NP [address] [address] PCP - General Family Medicine 09/21/22
--- OUTSIDE RECORDS SUMMARY | 2024-11-24 10:14 | XMS_ITS | Encounter Summary ---
Author Organization [facility] Address [facility] [employer] [address] [place] [address] Phone Care Team Providers Care Ballistics Tester Name Role Phone Pcp, Unknown Primary Care Provider Unavailabl e Pcp, Unknown Primary Care Provider Unavailabl e Jo Ann Hebert Primary Care Provide r Encounter Details Date Type Department Care Team (Late st Contact Info) Description 04/15/2022 Procedure Pass [facility], Ct Scan - [address] [address] Social History Tobacco Use Types Packs/Day Years [...] 04/15/2022 7:37 PM Glenny Brothers RN * [place] Suicide Severity Rating Scale (Screener/Recent Self-Report) Question [...] Description 12/04/2024 1:30 PM EDT Office Visit [facility] Orthopedics [facility] [address] [place] [address] Cr Kidd MD [address] [place] [address] [email or web address] documented as of this encounter Visit Diagnoses Not on filedocumented in this encounter Additional Health Concerns Assessment Noted Time PHQ-2 Depression Total Score: 1 04/17/19 20 1:38 PM EST documented as of this encounter Care Teams Ballistics Tester Relationship Specialty Start Date End Date Pcp, Unknown PCP - General 04/15/22 04/11/23 Pcp, Unknown PCP - General 04/12/23 10/02/24 Jo Ann Hebert PA [address] [place] [address] [place] [address] PCP - General Physician Utility Lineman 10/03/24 documented as of this encounter Additional Source Comments The information contained in this document represents components of the legal health record. It is not the complete legal health record.[facility]
--- OUTSIDE RECORDS SUMMARY | 2024-11-24 10:14 | XMS_ITS | Encounter Summary ---
Author Organization [facility] Address [address] [place] [address] Care Team Providers Care Advertiser Name Role Phone Ana Cortez Primary Care Provider [phone] Encounter Details Date Type Department Care Team (Late st Contact Info) Description 08/11/2022 Orders Only [facility] [address] [place] [address] Brenda Willard, DO [address] [place], [place] [id number] Social History Tobacco Use Types Packs/Day Years [...] on filedocumented in this encounter Care Teams Advertiser Relationship Specialty Start Date End Date Ana Coretz [address] [place] [address] PCP - General 04/10/23 documented as of this encounter
--- OUTSIDE RECORDS SUMMARY | 2024-11-24 10:14 | XMS_ITS | Clinical Summary ---
Author Organization [address] Address [address] [place] [phone] Phone Care Team Providers Care Egg Pasteurizer Name Role Phone Jo Ann Hebert Primary Care Provider [phone] Allergies Active Allergy Reactions Criticality Noted Date [...] mouth 1 (one) time each day. Active amphetamine-dex troamphetamine (ADDERALL) 10 mg [...] a day (before meals and nightly). Active amphetamine-dex troamphetamine (ADDERALL) 20 mg tablet Take 1 tablet (20 mg total) by mouth 2 (two) times a day. Max Daily Amount: 40 mg Active tacrolimus (PROTOPIC) 0.1 % ointment Apply topically 2 (two) times a day. Active oxyCODONE (ROXICODONE) 5 mg immediate release tabletIndicatio ns:Abdominal pannus Take 1 tablet (5 mg total) by mouth every 4 (four) hours if needed for severe pain for up to 7 days. Max Daily Amount: 30 mg 28 each 5 10/31/19 25 cephalexin (KEFLEX) 500 mg capsule Take 1 capsule (500 mg total) by mouth 4 (four) times a day for 14 days. 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 Biopsies Abdominal ultrasound 03/31/17 wnl Asthma 09/24/2013 Encounters Date Type Department Care Team Description 11/18/2024 10:30 AM EDT Office Visit [facility] [address] [phone] Sierra Isidro PA Status post panniculectomy (Primary Dx) 11/03/2024 9:00 AM EDT Office Visit [facility] [address] [phone] Sierra Isidro PA Status post panniculectomy (Primary Dx) 10/30/2024 1:00 PM EDT Office Visit [facility] [address] [address] Sierra Isidro PA Status post panniculectomy (Primary Dx) 10/27/2024 1:30 PM EDT Office Visit [facility] [address] [address] Sierra Isidro PA Status post panniculectomy (Primary Dx) 10/27/2024 Telephone [facility] [address] [address] Gail Chavez MA 10/23/2024 1:30 PM EDT Office Visit [facility] [address] [address] Sierra Isidro PA Status post panniculectomy (Primary Dx); Abdominal pannus 10/16/2024 7:39 AM EDT Anesthesia Event [facility] [place] [address] [place] [phone] AdeleTenzinDO 10/16/2024 7:30 AM EDT - 10/16/2024 11:00 AM EDT Surgery [facility] OR [address] [place] [phone] Arturo Albarran DO PANNICULECTOMY [05711 (CPT )] 10/16/2024 6:15 AM EDT - 10/16/2024 2:26 PM EDT Hospital Encounter [facility] [place] [address] [place] [phone] Arturo Albarran DO Abdominal pannus; Abrasion of labia minora, sequela; Erythema intertrigo Discharge Disposition: Home or Self Care 10/06/2024 11:00 AM EDT Consult [facility] & Re[facility]ive Surgery [address] [address] Arturo Albarran DO Abdominal pannus (Primary Dx) 09/30/2024 Telephone General [address] [address] Arturo Albarran DO 08/29/[address] [phone] Arturo Albarran DO 08/27/2024 11:00 AM EDT Consult Plastic & Reconstructive Surgery [facility] [address] [address] [place] PA Abdominal pannus (Primary Dx); Intertrigo; Abrasion of labia minora, sequela; IgA deficiency (CMS/HCC V24, CMS/HCC V28) from Last 3 Months Immunizations Immunization [...] Care Team (Late st Contact Info) Description 11/24/2024 11:30 AM EDT Office Visit [facility] [place] [address] [place] [phone] [place] [address] [place] [address] 12/09/2024 1:00 PM EDT Appointment [facility] [address] [place] [phone] Health Maintenance Due Date Last Done Comments COVID-19 Vaccine (#1) 1994 Hepatitis B Vaccines (1 of 3 - 19+ 3-dose series) 01/07/2008 Pneumococcal Vaccine: Pediatrics (0 to 5 Years) and At-Risk Patients (6 to 49 Years) (1 of 2 - PCV) 01/07/2008 HPV Vaccines (1 - Risk 3-dos e SCDM series) 01/07/2016 Cervical Cancer Screening: P ap Smear 06/13/2020 [...] Procedure Name Priority Date/Time Associated Diagnosis Comments CULTURE WOUND DEEP Routine 11/18/2024 11:12 AM EDT Status post panniculectomy TISSUE EXAM Routine 10/16/2024 9:46 AM EDT Erythema intertrigo Abdominal pannus TH AN ENDOTRACHEAL(NO CHARGE) Routine 10/16/2024 8:08 AM EDT OK EXCISION EXCESSIVE SKIN/SUBCUTANEOUS TISSUE OTHER AREA 10/16/2024 7:39 AM EDT Abdominal pannus Erythema intertrigo Special Needs 2HRS WITH 30 MIN CLEAN [place] EXCISION EXCESSIVE SKIN SUBQ TISSUE ABD INFRAUMBILICAL [...] Recently Relevant to Health Maintenance Results * Culture wound deep (11/18/2024 11:12 AM EDT) Culture, Wound No growth at 3 days 11/21/2024 9:49 AM EDT [facility] Gram Stain Result Rare Polymorphonuclear leukocytes 11/21/2024 9:49 AM EDT [facility] Gram Stain Result No epithelial cells seen 11/21/2024 9:49 AM EDT [facility] Gram Stain Result No organisms seen 11/21/2024 9:49 AM EDT [facility] Swab Structure of abdominopelvic wall / Unknown Non-blood Collection / Unknown 11/18/2024 11:12 AM EDT 11/18/2024 11:12 AM EDT us Sierra GUPTA LAB MICROBIOLOGY - GENERAL ORDER AHSAN Final Result [facility] [address] [place] [address], [place] [phone] * Tissue exam (10/16/2024 9:46 AM EDT) Final Diagnosis Vulva, right labia minora, labiaplasty: Benign squamous epithelial-lined tissue without hair follicles, consistent with labium minus No significant pathologic change identified 10/17/2024 10:57 AM EDT [facility] Gross Description A. Vulva, right labia minora skin: Labeled vagina, right lab . Received in formalin is a 4.4 x 1.7 x 0.8 cm irregular wells-white rubbery portion of skin and subcutaneous tissue. The cut surfaces are wells-white and edematous. No mass lesions are appreciated. Sensory Scientist sections are submitted in one cassette, two pieces. LEONA 10/17/2024 10:57 AM EDT [facility] Disclaimer Unless otherwise specified, all tissue is 10% NB formalin fixed and paraffin embedded. 10/17/2024 10:57 AM EDT [facility] Tissue Vulval structure / Unknown 10/16/2024 9:46 AM EDT 10/16/2024 12:21 PM EDT Arturo Albarran DO LAB PATHOLOGY ORDERABLES Fin al Result [facility] [address] [place] [address], [place] [phone] * TH AN ENDOTRACHEAL(NO CHARGE) (10/16/2024 8:08 AM EDT) Tenzin Rodriguez DO - 10/16/2024 8:08 AM EDT Tenzin Angulo DO 10/17/2024 8:20 AM General Information and Staff Patient location during procedure: OR Anesthesiologist: Tenzin Angulo DO Resident/SANITATION TRUCK CLEANER: Brooks Mello CRNA Performed: resident/SANITATION TRUCK CLEANER/CAA Performed by: Brooks Mello CRNA Authorized by: [...] LAB COAGULATION METHOD 10/16/2024 7:09 AM EDT [facility] Blood Venous blood specimen / Unknown Venipuncture / Unknown 10/16/2024 6:44 AM EDT 10/16/2024 6:51 AM EDT Arturo Albarran DO LAB BLOOD ORDERABLES Final R esult Performing Organization Address [facility] Co de Phone Number [facility] [address] [place] [address], [place] [phone] * Prothrombin time with INR (10/16/2024 6:44 AM EDT) Pathologist [facility] Protime 11.7 10.6 - 13.9 sec LAB COAGULATION METHOD 10/16/2024 7:09 AM EDT [facility] INR 0.9 LAB COAGULATION METHOD 10/16/2024 7:09 AM EDT [facility] Blood Venous blood specimen / Unknown Venipuncture / Unknown 10/16/2024 6:44 AM EDT 10/16/2024 6:51 AM EDT us Arturo Albarran DO LAB BLOOD ORDERABLES Final R esult Performing Organization Address [facility]/ZIP Co de Phone Number [facility] [address] [place] [address], [place] [phone] * BMP (10/16/2024 6:44 AM EDT) Pathologist [facility] Sodium 140 133 - 145 mmol/L LAB CHEMISTRY METHOD 10/16/2024 7:14 AM EDT [facility] Potassium 4.1 3.5 - 5.5 mmol/L LAB CHEMISTRY METHOD 10/16/2024 7:14 AM EDT [facility] Chloride 105 96 [...] DO LAB BLOOD ORDERABLES Final R esult [facility] [address] [place] [address], * (ABNORMAL) Lipid panel (04/18/2018) LDL/HDL Ratio [...] RESULTING AGENCY - 06/20/2017 4:55 PM EDT [id number] THINPREP PAP, IMAGED AND CELL BLOCK: NEGATIVE [...] Most Recently Relevant to Health Maintenance Insurance [facility] [employer] Advance Directives * Full Code [...] currently active code status orders. Care Teams Egg Pasteurizer Relationship Specialty Start Date End Date Jo Ann Hebert PA [address] [place] [address], [address] [place] [address] PCP - General 08/25/24
--- OUTSIDE RECORDS SUMMARY | 2024-11-24 10:14 | XMS_ITS | Encounter Summary ---
Author Organization [facility] Address [facility] [address] [place] [address] Phone Care Team Providers Care Director Case Management Name Role Phone Nilda Watson Unavailable Octavio Castillo MD Primary Care Provider [phone] Octavio Castillo MD Unavailable [phone] Maryam Wu MD Primary Care Provid er Glenny Dyson NP Primary Care Provider + Yair Gallo MD Primary Care Provider [phone] Glenny Dyson ASSOCIATE PROFESSOR OF COUNSELING Primary Care Provider + Pcp, Unknown Primary Care Provider Unavailabl e Pcp, Unknown Primary Care Provider Unavailabl e Jo Ann Hebert Primary Care Provide r Encounter Details Date Type Department Care Team (Late st Contact Info) Description 04/26/2020 Ancillary Orders Virtual Department [address] [place] [address] [address] [phone] viral [email or web address] [email or web address] pain Social History Tobacco Use Types [...] 12/04/2024 1:30 PM EDT Office [facility] Orthopedics [facility] [address] [place] [address] Cr Kidd MD 20 [place] [address] [email or web address] documented as of this encounter Results * [...] as of this encounter Care Teams Director Case Management Relationship Specialty Start Date End Date Nilda Watson PA [address] [place] [address] [email or web address] PCP - Resident PCP 04/11/19 07/14/21 Octavio Castillo MD [address] [place] [address], [address] [place] [address] [email or web address] PCP - General Internal Medicine 07/10/19 07/14/21 Maryam Wu MD [address] [place] [address] [place] [address] [email or web address] PCP - General Family Medicine 07/15/21 03/05/22 Glenny Dyson NP [address] [place] [address] PCP - General Nurse Practitioner 03/06/22 03/15/22 Yair Gallo MD [address] [place] [address] PCP - General Internal Medicine 03/16/22 03/16/22 Glenny Dyson NP [address] [place] [address] PCP - General Nurse Practitioner 03/17/22 04/14/22 Pcp, Unknown PCP - General 04/15/22 04/11/23 Pcp, Unknown PCP - General 04/12/23 10/02/24 Jo Ann Hebert PA [address] [place] [address] [place] [address] PCP - General Physician Social Worker Psychiatric 10/03/24 Octavio Castillo MD [address] [place] [address], [address] [place] [address] [email or web address] Insurance Assigned Provider 08/18/19 11/20/20 documented as of this encounter Additional Source Comments The information contained in this document represents components of the legal health record. It is not the complete legal health record.[facility]
--- OUTSIDE RECORDS SUMMARY | 2024-11-24 10:14 | XMS_ITS | Clinical Summary ---
Author Organization [facility] Address [address] [place] [address] Care Team Providers Care Sewing Pattern Layout Technician Name Role Phone Ana Cortez Primary Care Provider [phone] Allergies Active Allergy Reactions Criticality Noted Date [...] Assessment & Plan: Will be scheduled with [facility] GI. Saw Dr. Reyes who recommended [...] Insurance [employer] Care Teams Sewing Pattern Layout Technician Relationship Specialty Start Date End Date Ana Cortez [address] [place] [address] PCP - General 04/10/23
--- OUTSIDE RECORDS SUMMARY | 2024-11-24 10:14 | XMS_ITS | Encounter Summary ---
Author Organization [facility] Address [address] [place] [address] Phone Care Team Providers Care Endocrinology Specialist Name Role Phone Pcp, Unknown Primary Care Provider Jo Ann Mg Primary Care Provide r Encounter Details Date Type Department Care Team (Late st Contact Info) Description 04/12/2023 Procedure Pass [facility], Ct Scan - [facility] [address] [place] [address] Social History Tobacco Use Types Packs/Day Years Used Date Smoking Tobacco: Former Cigarettes 1 2 2014 Smokeless Tobacco: Never Alcohol Use [...] Author No Risk Indicated 04/12/2023 9:23 PM EST Lucille Lara RN * [place] Suicide Severity Rating Scale (Screener/Recent Self-Report) Question [...] Description 12/04/2024 1:30 PM EDT Office Visit [facility] Orthopedics [facility] 20 [place] [address] Cr Kidd MD 20 [place] [address] [email or web address] documented as of this encounter Visit Diagnoses Not on filedocumented in this encounter Additional Health Concerns Assessment Noted Time PHQ-2 Depression Total Score: 1 04/17/19 20 1:38 PM EST documented as of this encounter Care Teams Endocrinology Specialist Relationship Specialty Start Date End Date Pcp, Unknown PCP - General 04/12/23 10/02/24 Jo Ann Hebert PA [address] [place] [address] [place] [address] PCP - General Physician Supervisor [employer] 10/03/24 documented as of this encounter Additional Source Comments The information contained in this document represents components of the legal health record. It is not the complete legal health record.[facility]
== END 2024-11-04 00:01 | disposition home or self-care (01) ==
LOC: CF
DX: M35.2 Behcet's disease (principal); G62.9 Polyneuropathy, unspecified; R00.2 Palpitations; M35.7 Hypermobility syndrome; J34.9 Unspecified disorder of nose and nasal sinuses; G43.E19 Chronic migraine with aura, intractable, without status migrainosus; S83.206D Unspecified tear of unspecified meniscus, current injury, right knee, subsequent encounter; S03.00XD Dislocation of jaw, unspecified side, subsequent encounter; Z79.2 Long term (current) use of antibiotics; Z79.891 Long term (current) use of opiate analgesic; Z79.899 Other long term (current) drug therapy
CPT/HCPCS: 99212

== ENCOUNTER 2024-11-04 13:16 | Outpatient (AMB) | payer OTHER, SELFPAY ==
--- OUTSIDE RECORDS SUMMARY | 2024-10-30 13:00 | XMS_ITS | Encounter Summary ---
Author Organization [employer] Address [address] [place] [address] Care Team Providers Care Ncr Operator Name Role Phone Jo Ann Hebert Primary Care Provider [phone] Encounter Details Date Type Department Care Team (Latest Contact Info) Description 10/30/2024 1:00 PM EDT Office Visit Plastic & Reconstructive Surgery - [address] [address] [place] [address] [place] [address] [phone] Status post panniculectomy (Primary Dx) Social History Tobacco Use Types [...] on file documented as of this encounter Ordered Prescriptions Prescription Sig Dispense Quantity Refills Last Filled Start Date End Date cephalexin (KEFLEX) 500 mg capsule Take 1 capsule (500 mg total) by mouth 4 (four) times a day for 14 days. 56 each 10/30/2024 documented in this encounter Progress Notes * ALONSO Thorpe - 10/30/2024 1:00 PM EDT PATIENT: Marie Pandya ENCOUNTER: 10/30/2024 EMRN: [id number] : 1990 CHIEF COMPLAINT: No chief complaint on file. The patient is here for post-op visit after panniculectomy and right labiaplasty. The patient was given the opportunity to have a electrical plumbing supervisor present during a sensitive examination attoday's visit. She declined this offer of a electrical plumbing supervisor. HPI: This 34 y.o. female presents for 2 week follow-up status post panniculectomy and right labiaplasty.Feeling much better, less pain. Less drainage daily. About 40- 50 ccs. No issues with labia incision. She is very happy with improving contour of abdomen and improved contour of labia. Still walking in a flexed position. PAST MEDICAL HISTORY: Patient Active Problem List Diagnosis Allergic conjunctivitis of both eyes Arthralgia Asthma IgA deficiency ([facility] V24, [facility] V28) Insulin controlled gestational diabetes mellitus (GDM) during , antepartum Low serum IgG2 subclass level Lower abdominal pain Melanoma in situ ([facility] V24, [facility] V28) Nevus Non-ulcer dyspepsia Perennial allergic rhinitis Rubella non-immune status, antepartum Uterine size-date discrepancy in third trimester Morbid obesity with BMI of 40.0-44.9, adult ([facility] V24, [facility] V28) Abdominal pannus Intertrigo Abrasion of labia minora Behcet's disease ([facility] V24, [facility] V28) Kings-Danlos disease Erythema intertrigo PAST SURGICAL HISTORY: Past Surgical History: Procedure Laterality Date ADENOIDECTOMY PROCEDURE: HISTORICAL ADENOIDECTOMY APPENDECTOMY PROCEDURE: HISTORICAL APPENDECTOMY CHOLECYSTECTOMY ESOPHAGOGASTRODUODENOSCOPY 03/29/15 PROCEDURE: [place] EGD TRANSORAL BIOPSY SINGLE/MULTIPLE; COMMENT: mild distal esophagitis, antritis and duodenitis. bxs of all - bx all negative OTHER SURGICAL HISTORY PROCEDURE: REMOVAL OF TMJ CONDYLE TONSILLECTOMY PROCEDURE: HISTORICAL TONSILLECTOMY SOCIAL HISTORY: Social History Tobacco Use Smoking status: Former Current packs/day: 0.00 Types: Cigarettes Quit date: 03/15/2016 Years since quittin.6 Smokeless tobacco: Never Substance Use Topics Alcohol use: No Drug use: No MEDICATIONS: No outpatient medications have been marked as taking for the 10/30/24 encounter (Office Visit) with ALONSO Thorpe. ALLERGIES: Allergies Allergen Reactions Adhesive Tape-Silicones Rash Localized-JUST ADHESIVE TAPE Erythromycin Rash Latex Rash Localized;Pt reports latex sensitivity, gets rash with use Other Other (No Interaction Warnings)-Blood product alert: patient with IgA deficiency Tylenol [Acetaminophen] Liver function tests abnormal PHYSICAL EXAM: Visit Vitals OB Status Having periods Smoking Status Former Dermabond tape removed. Incision clean, dry, and intact. Drain remains in place. Improved contour of abdomen. No residual pannus. Labial incision is pink and healing appropriately. No signs of infection or irritation. Improved contour of labia. One suture removed. ASSESSMENT: 1. Status post panniculectomy PLAN: 1. 34 y.o. female 2 week follow-up status post panniculectomy and labiaplasty. Drain does not meet requirements for removal. Still no shower. Continue PO antibiotics. Continue wearing abdominal binder at all times. Continue walking and sleeping in a flexed position. Continue with light activity. Continue ointment to labia daily. Nothing in the vagina. Healing well. Follow up next week for drain removal. Will discuss with Dr. Albarran. documented in this encounter Plan of Treatment Upcoming Encounters Date Type Department Care Team (Late st Contact Info) Description 11/17/2024 10:30 AM EDT Office Visit Plastic & Reconstructive Surgery [facility] [address] [phone] [place] [address] [place] [phone] 12/09/2024 1:00 PM EDT Appointment [facility] Xray [address] [place] [phone] documented as of this encounter Visit Diagnoses Diagnosis Status post panniculectomy- Primary documented in this encounter Care Teams Ncr Operator Relationship Specialty Start Date End Date Jo Ann Hebert PA [address] [facility], [address] [place] [address] PCP - General 08/25/24 documented as of this encounter
--- OUTSIDE RECORDS SUMMARY | 2024-11-03 09:00 | XMS_ITS | Encounter Summary ---
Author Organization [employer] Address [address] [place] [address] Care Team Providers Care Rug Cleaning Supervisor Name Role Phone Jo Ann Hebert Primary Care Provider [phone] Encounter Details Date Type Department Care Team (Latest Contact Info) Description 11/03/2024 9:00 AM EDT Office Visit Plastic & Reconstructive Surgery - [address] [phone] [place] [facility] [address] [place] [phone] Status post panniculectomy (Primary Dx) Social History [...] as of this encounter Progress Notes * ALONSO Thorpe - 11/03/2024 9:00 AM EDT Continue ointment to labia daily. Continue scar massage to all areas daily. Continue light activity for 2 weeks. * ALONSO Thorpe - 11/03/2024 9:00 AM EDT PATIENT: Marie Pandya ENCOUNTER: 11/03/2024 EMRN: [id number] : 1990 CHIEF COMPLAINT: No chief complaint on file. The patient is here for post-op visit after panniculectomy and right labiaplasty. The patient was given the opportunity to have a regional marketing director present during a sensitive examination attoday's visit. She declined this offer of a regional marketing director. HPI: This 34 y.o. female presents for 3 week follow-up status post panniculectomy. Doing well with goodpain control. Ambulating well at home. Happy with improving contour of abdomen. Still walking in a flexed position. Drain output has been less than 30 ccs since her last visit. She is having an area of pain along the labiaplasty incision. Feels that a stitch may be poking through. PAST MEDICAL HISTORY: Patient Active Problem List Diagnosis Allergic conjunctivitis of both eyes Arthralgia Asthma IgA deficiency ([facility] V24, [facility] V28) Insulin controlled gestational diabetes mellitus (GDM) during , antepartum Low serum IgG2 subclass level Lower abdominal pain Melanoma in situ ([facility] V24, [facility] V28) Nevus Non-ulcer dyspepsia Perennial allergic rhinitis Rubella non-immune status, antepartum Uterine size-date discrepancy in third trimester Morbid obesity with BMI of 40.0-44.9, adult ([facility] V24, [facility] V28) Abdominal pannus Intertrigo Abrasion of labia minora Behcet's disease ([facility] V24, [facility] V28) Kings-Danlos disease Erythema intertrigo PAST SURGICAL HISTORY: Past Surgical History: Procedure Laterality Date ADENOIDECTOMY PROCEDURE: HISTORICAL ADENOIDECTOMY APPENDECTOMY PROCEDURE: HISTORICAL APPENDECTOMY CHOLECYSTECTOMY ESOPHAGOGASTRODUODENOSCOPY 03/29/15 PROCEDURE: [place] EGD TRANSORAL BIOPSY [...] have been marked as taking for the 11/03/24 encounter (Office Visit) with ALONSO Thorpe. ALLERGIES: Allergies Allergen Reactions Adhesive Tape-Silicones Rash Localized-JUST ADHESIVE TAPE Erythromycin Rash Latex Rash Localized;Pt reports latex sensitivity, gets rash with use Other Other (No Interaction Warnings)-Blood product alert: patient with IgA deficiency Tylenol [Acetaminophen] Liver function tests abnormal PHYSICAL EXAM: Visit Vitals OB Status Having periods Smoking Status Former Abdomen incision pink and healing appropriately. Drain removed with no issues. Excellent contour ofabdomen. No residual pannus. Labial incision is pink and healing appropriately. No signs of infection or irritation. Improved contour of labia. At the distal corner of the flap there is a small breakthrough suture. This was removed and ointment applied. ASSESSMENT: 1. Status post panniculectomy PLAN: 1. 34 y.o. female 3 week follow-up status post panniculectomy and right labiaplasty. All drains are removed. Patient may shower. Continue wearing abdominal binder at all times. Continue walking and sleeping in a flexed position. Can gradually increse to moderate physical activity only. Still nothing in vagina for 2 more weeks. Healing well. Follow up in [address] weeks[address] Will discuss with Dr[address] Albarran. cc: Jo Ann Hebert PA documented in this encounter Plan of Treatment Upcoming Encounters Date Type Department Care Team (Late st Contact Info) Description 11/17/2024 10:30 AM EDT Office Visit Plastic & Reconstructive Surgery - [place] [address] [place] [phone] [place] [facility] [place] [phone] 12/09/2024 1:00 PM EDT Appointment [facility] Xray [address] [place] [phone] documented as of this encounter Visit Diagnoses Diagnosis Status post panniculectomy- Primary documented in this encounter Care Teams Rug Cleaning Supervisor Relationship Specialty Start Date End Date Jo Ann Hebert PA [address] [place] [address], [address] [place] [address] PCP - General 08/25/24 documented as of this encounter
[2024-11-04 13:21] VITALS: BP 112/68; PULSE 58; TEMP 36.2; O2SAT 99; BMI 24.7
--- NOTE | 2024-11-04 13:21 | A.OFFPC_ITS ---
Vital Signs 3 11/04/24 13:21 Height 5 ft 3 in Weight 139 lb 6 oz BMI 24.7 BP 112/68 Blood Pressure Location Lt brachial Position Sitting Pulse 58 Pulse Source Pulse Oximeter Temp 97.1 F Temp Source Temporal Artery Scan Pulse Oximetry (%) 99 Oxygen Delivery Method Room Air Intake Visit Reasons: New Patient Technician Support Association Required: No Accompanied by: Self / Same As Patient Allergies hydroxychloroquine (From Plaquenil) Allergy (Intermediate, Verified 11/04/24 13:34) Vomiting leflunomide Allergy (Intermediate, Verified 11/04/24 13:34) Diarrhea adhesive tape Allergy (Unknown, Verified 11/04/24 13:34) Unknown erythromycin base (ERYTHROMYCIN BASE) Allergy (Unknown, Verified 11/04/24 13:34) UNKNOWN latex (LATEX) Allergy (Unknown, Verified 11/04/24 13:34) UNKNOWN acetaminophen (From Tylenol) Adverse Reaction (Unknown, Verified 11/04/24 13:34) elevates LFT's Medication List - Last Reconciled 11/04/24 by Jo Ann Hebert PA-C [AFO As directed] apremilast (Otezla) 30 mg PO BID atogepant (Qulipta) 60 mg PO DAILY cephalexin 500 mg PO QID colchicine 0.6 mg PO BID 30 days cyclosporine 0.05% (Restasis) 1 drp ophthalmic (eye) BID dextroamphetamine-amphetamine 10 mg ER (Adderall XR) 1 cap PO QAM dextroamphetamine-amphetamine 20 mg 1 tab PO BID diazepam 5 mg PO TID PRN dicyclomine 20 mg (2 x 10 mg) PO BID PRN 90 days docusate sodium 100 mg PO BID duloxetine 60 mg PO DAILY duloxetine 30 mg PO DAILY epinephrine (EpiPen) 0.3 mg (0.3 mL) IM Q10M PRN famotidine 20 mg PO BID gabapentin 1 tab at bedtime 3 days and titrate to bid for 3 days then tid orally 3 times a day; glucosamine-chondroitin 250-200 mg (Osteo Bi-Flex) 2 tabs PO BID leg brace (Knee Support Brace) wear as directed. Bilateral knee hinged brace with patella stabilization. Dx: Kings-Danlos Syndrome lidocaine 5% 1 appl topical BID PRN lidocaine HCl 2% 1 appl topical BID-TID PRN Magic Mouthwash Diphen/Lido/Antacid 1:1:1 240 mL orally; Lidocaine Viscous 2 % 80mL; diphenhydramine 12.5 mg/5 mL 80mL; aluminum-mag hydrox-simeth [id number]/5mL 80mL Swish, gargle and split 5 mL every 4-6 hours as needed. metoclopramide HCl 5 mg PO TID PRN minoxidil 1.25 mg PO BEDTIME mupirocin 2% 1 appl topical BID PRN nabumetone 500 mg PO BID 30 days ondansetron 4 mg PO BID PRN oxycodone 10 mg PO Q8H prednisolone acetate 1% 1 drp ophthalmic (eye) DAILY prucalopride (Motegrity) 1 mg PO DAILY 90 days Shower Chair As directed tizanidine 4 mg PO Q8H PRN [transfer bench As directed] ubrogepant (Ubrelvy) 50 mg PO ONCE PRN walker (Ultra-Light Rollator misc) As directed [wheelchair As directed] Tobacco use date assessed: 11/04/24 Dental Screening Dental Screen Date: 11/04/24 Did you have a dental visit in the last 12 months?: Yes Did you have a dental problem in the last 6 months where you did not have access to dental care?: No HPI New Patient 2 HPI0 Details 34-year-old female with past medical his tory of polyarthralgia, asthma, Behcet's disease, myelopathy, anxiety and depression last seen 07/2024 coming in for follow up. In review of the notes, patient was seen by Plastic surgery 10/27/2024 s/p panniculectomy and labioplasty doing well postoperatively and follow up in 1 week. Seen by neurology 10/2024 ordered for MRI restarted on gabapentin 800 mg t.i.d. and started on Qulipta and Ubrelvy. Seen by pain management 09/2024 considering IT DD pain pump trial and ordered for bone density scan. Seen by orthopedics 10/02/2024 prescription sent for AFO and referral was placed for Kings-Danlo at [facility]. Seen by Cardiology 08/2024 for palpitations concerning for POTS ordered for tilt-table test and plan to repeat Holter monitor in 2 months. Presenting with chronic pain management issues and postoperative recovery concerns. The patient is three weeks postoperative from abdominal surgery aimed at reducing recurrent infections due to excess skin folds. The incision sites are healing well with minimal leakage managed by hydrocolloid patches. The patient reports severe pain requiring narcotic management, currently prescribed oxycodone, but is seeking a new painter interior finish due to contract limitations with the current provider. Reports headaches, memory issues, and nerve pain described as electrical shocks starting from the ear and radiating down the face and neck. She is following with a neurologist for these concerns. She is experiencing severe knee pain and is awaiting surgical intervention, with previous surgery canceled unexpectedly. She experiences electrical shock-like pain associated with TMJ, managed with muscle relaxants and heat application. The patient reports chronic sinus infections and nasal polyps, with a perforated septum likely exacerbated by Beh?et's disease-related ulcers. 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 Father No problems noted. Social History Household Members: Spouse and Family Housing: House Are you a primary career center advisor to a significant other at home: No Do you presently have visiting nurse or other home services: No Alcohol intake: current Alcohol intake frequency: does not drink Patient Tobacco Use Status: Former Tobacco user Tobacco use type: Cigarette e-Cigarette/Vaping Use: Currently Using Second Hand Smoke Exposure: Yes Substance Use Type: Marijuana Advance Directives Date on File: 10/29/23 service: No Current occupational status: disabled Cognitive needs: Yes (Wheelchair, Walker, Cane) Hearing needs: No Vision needs: Yes (Glasses) Female Reproductive History Menstrual Age of Menarche: 10 Questionnaire PHQ-9 Over the last 2 weeks, how often have you been bothered by any of the following problems? 1. Little interest or pleasure in doing things: not at all 2. Feeling down, depressed, or hopeless: nearly every day (severe anxiety) 3. Trouble falling or staying asleep, or sleeping too much: nearly every day 4. Feeling tired or having little energy: nearly every day 5. Poor appetite or overeating: nearly every day 6. Feeling bad about yourself - or that you are a failure or have let yourself or your family down: nearly every day 7. Trouble concentrating on things, such as reading the newspaper or watching television: nearly every day 8. Moving or speaking so slowly that other people could have noticed. Or the opposite - being so fidgety or restless that you have been moving around a lot more than usual: not at all 9. Thoughts that you would be better off or of hurting yourself in some way: not at all Total score: 18 Source: Developed by Drs. Mikael Maher, Saritha Us, David Ramos and colleagues, with an educational gigi from [employer]. Thrive Questionnaire Date Thrive assessed: 11/04/24 I am a: Patient Within the past 12 months, did the food you bought not last and you didn't have the money to get more?: Never true Within the past 12 months, did you worry whether your food would run out before you got money to buy more?: Never true Do you have trouble paying for medicines?: No Do you have trouble getting transportation to medical appointments?: No Do you have trouble paying your heating and electricity bill?: No Do you have trouble taking care of your child, family member or friend?: No Do you have trouble with day-to-day activities such as bathing, preparing meals, shopping, managing finances, etc.?: No Are you currently unemployed and looking for a job?: No Are you interested in more education?: No THRIVE Score: 0 AUDIT C Alcohol Use Questionnaire (AUDIT-C) 1. How often do you have a drink containing alcohol?: Never 3. How often do you have six or more drinks on one occasion?: Never Total Score: 0 ISAC-7 AMB Questionnaire ISAC-7 Date ISAC - 7 assessed: 11/04/24 Feeling nervous, anxious, or on edge: 3 = Nearly every day Not being able to stop or control worryin = Not at all Worrying too much about different things: 0 = Not at all Trouble relaxin = Not at all Being so restless that it is hard to sit still: 0 = Not at all Becoming easily annoyed or irritable: 0 = Not at all Feeling afraid as if something awful might happen: 0 = Not at all Total ISAC-7 score (0-4 normal; 5-9 mild; 10-14 moderate; 15-21 severe): 3 Source: Developed by Drs. Mikael Maher, Saritha Us, David Ramos and colleagues, with an educational gigi from [employer]. Review of Systems Const Denies body aches, Denies chills, Denies fever(s), Reports headache(s) and Denies poor appetite Eyes Reports no additional complaints ENT Denies dizziness and Reports headache(s) Card Denies chest pain, Denies syncope, Denies edema and Denies dyspnea Resp Denies cough and Denies dyspnea GI Denies abdominal pain, Denies nausea and Denies vomiting Reports no additional complaints Musc Reports as per HPI Skin/Breast Reports system reviewed and no additional complaints, except as documented Neuro Denies dizziness, Denies syncope and Reports headache(s) Psych Reports no additional complaints Physical exam (Primary Care) Vital Signs: Last Vital Signs Temp 97.1 F 11/04/24 13:21 Pulse 58 11/04/24 13:21 BP 112/68 11/04/24 13:21 Pulse Ox 99 11/04/24 13:21 Oxygen Delivery Method Room Air 11/04/24 13:21 BMI result Body Mass Index 24.7 Tobacco/Smoking Status: Tobacco use Status Tobacco use date assessed 11/04/24 11/04/24 13:24 Patient Tobacco Use Status Former Tobacco user 11/04/24 13:24 Tobacco use type Cigarette 11/04/24 13:24 e-Cigarette/Vaping Use Currently Using 11/04/24 13:24 PHQ-9: PHQ-9 Score PHQ-9: Total score 18 11/05/24 08:09 Thrive Assessment: Date of Thrive Assessment Date Thrive assessed 11/04/24 11/04/24 13:24 Const General: cooperative, healthy appearing, comfortable and no acute distress Orientation/consciousness: patient oriented x3 HENMT Head: Yes normocephalic Ears: hearing grossly normal bilaterally General nose exam: Normal external nose present Eyes General: appearance normal, both eyes and all related structures Conjunctivae: conjunctivae normal Neck Neck: Yes full ROM and Yes no lymphadenopathy Resp Effort & Inspection: normal respiratory effort Auscultation: clear to auscultation bilaterally, no crackles, no rales, no rhonchi and no wheezes Cardio Rate: regular rate Rhythm: regular rhythm GI Abdomen image: 2 1. Incision site is clean dry and intact without drainage erythema or warmth - no evidence of infection Skin General skin exam: no rashes or lesions noted Neuro General: patient oriented x3 Extrem General: Yes normal to inspection, Yes full ROM and No edema Psych Affect: normal affect Attitude: cooperative Insight: Good insight present (Psych) Judgement: Good judgement present (Psych) Coding Level of Care Code Est Pt Level 4 (71056) Diagnoses Palpitations R00.2 Benign joint hypermobility syndrome M35.7 Behcet disease with multisystem involvement M35.2 Tear of meniscus of right knee as current injury S83.206A Intractable chronic migraine with aura and without status migrainosus G43.E19 Intractability: intractable Status migrainosus presence: without status migrainosus Sinus disease J34.9 TMJ (dislocation of temporomandibular joint) S03.00XA Assessment & Plan Assessment & Plan (1) Palpitations: Code(s): R00.2 - Palpitations Category: Medical Plan: She is currently working with Cardiology for intermittent palpitations and has been worked up for POTS disease and has tilt-table testing coming up in the next few months. Continue to follow with Cardiology (2) Benign joint hypermobility syndrome: Code(s): M35.7 - Hypermobility syndrome Category: Medical Plan: The patient is experiencing severe knee pain and is awaiting surgical intervention, with previous surgery canceled unexpectedly. She is currently being seen by [facility] and needs a new pain management provider and referral was placed to clinic at her request today. (3) Behcet disease with multisystem involvement: Code(s): M35.2 - Behcet's disease Category: Medical Plan: The patient is awaiting initiation of infliximab infusions to manage joint pain associated with Beh?et's disease. Continue to follow up with Rheumatology (4) Tear of meniscus of right knee as current injury: Code(s): S83.206A - Unspecified tear of unspecified meniscus, current injury, right knee, initial encounter Category: Medical Plan: Awaiting surgical evaluation from [facility] (5) Chronic migraine with aura: Comment: with epsidoes of ptosis and right face weakness complex medical history- Behcets , Ehler Danlos Code(s): G43.E09 - Chronic migraine with aura, not intractable, without status migrainosus Category: Medical Qualifiers: Intractability: intractable Status migrainosus presence: without status migrainosus Qualified Code(s): G43.E19 - Chronic migraine with aura, intractable, without status migrainosus Plan: For chronic migraines she is working with a neurologist at this time and to continue on the current medication regimen as prescribed by Neurology (6) Sinus disease: Code(s): J34.9 - Unspecified disorder of nose and nasal sinuses Category: Medical Plan: The patient reports chronic sinus infections and nasal polyps, with a perforated septum likely exacerbated by Beh?et's disease-related ulcers. She is requesting a referral to ENT which was placed today (7) TMJ (dislocation of temporomandibular joint): Code(s): S03.00XA - Dislocation of jaw, unspecified side, initial encounter Category: Medical Plan: The patient experiences electrical shock-like pain associated with TMJ, managed with muscle relaxants and heat application. Prescription for tizanidine sent today Plan This note was constructed using voice recognition software. While every effort has been made to ensure accuracy and assistant child care teacher, still areas may have been included sometimes these areas may affect the content or meeting of the given symptoms. Total time spent caring for the patient today was 30 minutes. This includes time spent before the visit reviewing the chart, time spent during the visit, and time spent after the visit and documentation. Patient was informed and verbally consented to the use of an ambient scribe for clinic note documentation during this visit. Orders: Referrals 2 Pain Management Referral G89.4 - Chronic pain syndrome, G95.9 - Disease of spinal cord, unspecified, M35.7 - Hypermobility syndrome, S22.000A - Wedge compression fracture of unspecified thoracic vertebra, initial encounter for closed fracture, S83.206A - Unspecified tear of unspecified meniscus, current injury, right knee, initial encounter Ear/Nose/Throat Referral J34.9 - Unspecified disorder of nose and nasal sinuses Medications: New 2 tizanidine 4 mg PO Q8H 90 tabs 0RF muscle spasticity 30 days
--- OUTSIDE RECORDS SUMMARY | 2024-11-04 16:18 | XMS_ITS | Clinical Summary ---
Author Organization [facility] Address [facility] [employer] [address] [address] Phone Care Team Providers Care Nutrition Assistant Name Role Phone Jo Ann Hebert Primary [...] 4 tablet, 0 Refills, Maintenance, 03/06/22 14:34:00 [id number], Partial fill upon patient request if the [...] Conservative therapy not effective. 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 -will refer to [...] 9:20 AM EDT): Will be scheduled with [facility] GI. Saw Dr. Reyes who [...] (04/20/2019 2:05 PM EDT): Possible GI vs NETWORK CONTROL TECHNICIAN etiology. S/p appendectomy-possible adhesion formation, endometriosis. -will obtain CT abdomen/pelvis. Has not had one since onset of pain -urgent referral to NETWORK CONTROL TECHNICIAN to discuss pain/recent u/s with possible retained [...] 2017. She would like referral to new drug room clerk given her recent bad experience with criss [...] 04/12/2023 6:05 PM EST Plan of Treatment Upcoming Encounters Date Type Department Care Team (Late st Contact Info) Description 11/11/2024 2:00 PM EDT [place] [facility] [place], [place] Medicine Service [address] [facility], [address] [place] [address] Jeremiah Leal MD [address] [place] [id number] [email or web address] Due Date Last Done Comments SMOKING Hx and SMOKELESS TOBACCO SCREENING 2002 HEPATITIS C SCREENING 2007 HIV ONE-TIME SCREENING (18-6 5 YEARS) 2007 PNEUMOCOCCAL VACCINES (0-49 years) (1 of 2 - PCV) 01/07/2008 PAP SMEAR 2010 DEPRESSION SCREENING 04/16/2020 04/17/2019 INFLUENZA VACCINE (#1) 2024 COVID-19 VACCINE (1 - 2023-2 5 season) 2024 Adult Td,Tdap Booster 10/12/2025 10/13/2015 SCREENING FOR DIABETES 04/11/2026, 12/05/2019 HEPATITIS A VACCINES Aged Out No [...] topic Medical Devices Not on [place] [address] [place] [address] [place] [address] [place] [address] [place] [address] [place] [address] ACO [facility] ACO Care Teams Nutrition Assistant Relationship Specialty Start Date End Date Jo Ann Hebert PA [address] [place] [address] [place] [address] PCP - General Physician Photo Tech 10/03/24 Additional Source Comments The information contained in this document represents components of the legal health record. It is not the complete legal health record.[facility]
--- OUTSIDE RECORDS SUMMARY | 2024-11-04 16:18 | XMS_ITS | Clinical Summary ---
Author Organization [facility] Address [address] [place] [address] Care Team Providers Care Computer Programmer Analyst Name Role Phone Ana Cortez Primary Care Provider [phone] Allergies Active Allergy Reactions Criticality Noted Date [...] Insurance [employer] Care Teams Computer Programmer Analyst Relationship Specialty Start Date End Date Ana Cortez [address] [place] [address] PCP - General 04/10/23
--- OUTSIDE RECORDS SUMMARY | 2024-11-04 16:18 | XMS_ITS | Encounter Summary ---
Author Organization [facility] Address [address] [place] [address] Care Team Providers Care Dope And Fabric Worker Name Role Phone Jo Ann Hebert Primary Care Provider [phone] Reason for Visit * Reason Onset Date Comments Post-op Problem 10/27/2024 Pain redness pos t panniculectomy Encounter Details Date Type Department Care Team (Late st Contact Info) Description 10/27/2024 Telephone [facility] [place] [address] [place] [id number] Gail Chavez MA Social History Tobacco Use Types Packs/Day Years [...] as of this encounter Progress Notes * Gail Chavez MA - 10/27/2024 8:41 AM EDT Patient called in stating she had a panniculectomy done 10/16/24. She says she has been doing fine until Yogi AM when she had a fall. At the time, it was bleeding slightly with some blood clots that were concerning her. Since then, it has stopped bleeding but the abdomen had become red and swollen. She has been using ice compresses and taking an antiinflammatory. I have scheduled her for an appointment for today with [facility] at 1:30. If she needs to be seen sooner please advise. documented in this encounter Plan of Treatment Upcoming Encounters Date Type Department Care Team (Late st Contact Info) Description 11/17/2024 10:30 AM EDT Office Visit [facility] [place] [address] [place] [address] [place] PA [address] [place] [address] 12/09/2024 1:00 PM EDT Appointment [facility] [address] [place] [id number] documented as of this encounter Visit Diagnoses Not on filedocumented in this encounter Care Teams Dope And Fabric Worker Relationship Specialty Start Date End Date Jo Ann Hebert PA [address] [facility], [address] [place] [address] PCP - General 08/25/24 documented as of this encounter
--- OUTSIDE RECORDS SUMMARY | 2024-11-04 16:18 | XMS_ITS | Encounter Summary ---
Author Organization [facility] Address [address] [place] [id number] Phone Care Team Providers Care Management Technician Name Role Phone Pcp, Unknown Primary Care Provider Jo Ann Mg Primary Care Provide r Encounter Details Date Type Department Care Team (Late st Contact Info) Description 04/12/2023 Procedure Pass [facility], Ct Scan - [facility] [address] [place] [address] Social History Tobacco Use Types Packs/Day Years [...] 04/12/2023 9:23 PM Lucille Shah RN * [place] Suicide Severity Rating Scale (Screener/Recent Self-Report) Question Answer Date of Assessment Author 1. Wish to be (Past 1 Month) No 024 9:23 PM Lucille Leung, DELORIS 2. Non-Specific Active Suici antonette Thoughts (Past 1 Month) No 04/12/2023 9:23 PM Jaime Leung, DELORIS 6. Suicidal Behavior (Lifetime) No 4 9:23 PM Lucille Leung, DELORIS documented as of this encounter Plan of Treatment Upcoming Encounters Date Type Department Care Team (Late st Contact Info) Description 11/11/2024 2:00 PM EDT Office Visit [facility] [place] Department of [place]opaedic Surgery, Sports Medicine Service [address] [facility], [address] [place] [address] Jeremiah Leal MD [address] [place] [address] [email or web address] documented as of this encounter Visit Diagnoses Not on filedocumented in this encounter Additional Health Concerns Assessment Noted Time PHQ-2 Depression Total Score: 1 04/17/19 20 1:38 PM EST documented as of this encounter Care Teams Management Technician Relationship Specialty Start Date End Date Pcp, Unknown PCP - General 04/12/23 10/02/24 Jo Ann Hebert PA [address] [place] [address] [place] [address] PCP - General Physician Consumer Studies Professor 10/03/24 documented as of this encounter Additional Source Comments The information contained in this document represents components of the legal health record. It is not the complete legal health record.[facility]
--- OUTSIDE RECORDS SUMMARY | 2024-11-04 16:18 | XMS_ITS | Encounter Summary ---
Author Organization [facility] Address [facility]ly [facility] [employer] [address] [place] [address] Phone Care Team Providers Care Gas Flow Regulator Name Role Phone Pcp, Unknown Primary Care Provider Unavailabl e Pcp, Unknown Primary Care Provider Unavailabl e Jo Ann Hebert Primary Care Provide r Encounter Details Date Type Department Care Team (Late st Contact Info) Description 04/15/2022 Procedure Pass [facility], Ct Scan - [address] [address] Social History Tobacco Use Types Packs/Day Years [...] 04/15/2022 7:37 PM Glenny Brothers RN * [place] Suicide Severity Rating Scale (Screener/Recent Self-Report) Question Answer Date of Assessment Author 1. Wish to be (Past 1 Month) No 04/15/2022 7:37 PM Glenny Brothers RN 2. Non-Specific Active Suici antonette Thoughts (Past 1 Month) No 04/15/2022 7:37 PM EST Pham Francisco RN 6. Suicidal Behavior (Lifetime) No 7:37 PM EST Glenny Francisco RN documented as of this encounter Plan of Treatment Upcoming Encounters Date Type Department Care Team (Late st Contact Info) Description 11/11/2024 2:00 PM EDT Office Visit [facility] Department of Orthopaedic Surgery, Sports Medicine Service [address] [place] [address], [address] [place] [address] Jeremiah Leal MD [address] [place] [phone] [email or web address] documented as of this encounter Visit Diagnoses Not on filedocumented in this encounter Additional Health Concerns Assessment Noted Time PHQ-2 Depression Total Score: 1 04/17/19 20 1:38 PM EST documented as of this encounter Care Teams Gas Flow Regulator Relationship Specialty Start Date End Date Pcp, Unknown PCP - General 04/15/22 04/11/23 Pcp, Unknown PCP - General 04/12/23 10/02/24 Jo Ann Hebert PA [address] [place] [address] [place] [address] PCP - General Physician Client Business Manager 10/03/24 documented as of this encounter Additional Source Comments The information contained in this document represents components of the legal health record. It is not the complete legal health record.[facility]
--- OUTSIDE RECORDS SUMMARY | 2024-11-04 16:18 | XMS_ITS | Clinical Summary ---
Author Organization [facility] Address [address] [place] [address] Care Team Providers Care Injection Molding Engineer Name Role Phone Ana Cortez NP Primary Care Provider [phone] Allergies Active Allergy Reactions Criticality Noted Date [...] age to complete this topic Care Teams Injection Molding Engineer Relationship Specialty Start Date End Date Ana Cortez NP [address] [address] PCP - General Family Medicine 09/21/22
--- OUTSIDE RECORDS SUMMARY | 2024-11-04 16:19 | XMS_ITS | Encounter Summary ---
Author Organization [facility] Address [address] [place] [address] Care Team Providers Care Business Analytics Intern Name Role Phone Ana Cortez Primary Care Provider [phone] Encounter Details Date Type Department Care Team (Late st Contact Info) Description 08/11/2022 Orders Only [facility] [address] [place] [address] Brenda Willard, DO [address] [place], [place] [id number] Social History Tobacco Use Types Packs/Day Years [...] filedocumented in this encounter Care Teams Business Analytics Intern Relationship Specialty Start Date End Date Ana Cortez [address] [place] [address] PCP - General 04/10/23 documented as of this encounter
--- OUTSIDE RECORDS SUMMARY | 2024-11-04 16:19 | XMS_ITS | Encounter Summary ---
Author Organization [facility] Address [facility] [employer] [facility] [address] [place] [address] Phone Care Team Providers Care Director Business Systems Name Role Phone Nilda Watson Unavailable Octavio Castillo MD Primary Care Provider [phone] Octavio Castillo MD Unavailable [phone] Maryam Wu MD Primary Care Provid er Glenny Dyson NP Primary Care Provider + Yair Gallo MD Primary Care Provider Glenny Dyson RUGBY LEAGUE FOOTBALLER Primary Care Provider + Pcp, Unknown Primary Care Provider Unavailabl e Pcp, Unknown Primary Care Provider Unavailabl e Jo Ann Hebert Primary Care Provide r Encounter Details Date Type Department Care Team (Late st Contact Info) Description 04/26/2020 Ancillary Orders Virtual Department [address] [place] [address] [address] [phone] viral [email or web address] Social History Tobacco Use Types [...] Description 11/11/2024 2:00 PM EDT Office Visit [facility] Department of Orthopaedic Surgery, Sports Medicine Service [address] [facility], [address] [place] [address] Jeremiah Leal MD [address] [place] [address] [email or web address] documented as of this encounter Results * [...] may be consideredas indicated for this reason. us Falguni Valerio CN IMG US ABDOMEN Final Resu lt documented [...] as of this encounter Care Teams Director Business Systems Relationship Specialty Start Date End Date Nilda Watson PA [address] [place] [address] [email or web address] PCP - Resident PCP 04/11/19 07/14/21 Octavio Castillo MD [address] [place] [address], [address] [place] [address] [email or web address] PCP - General Internal Medicine 07/10/19 07/14/21 Maryam Wu MD [address] [place] [address] [place] [address] [email or web address] PCP - General Family Medicine 07/15/21 03/05/22 Glenny Dyson NP [address] [place] [address] PCP - General Nurse Practitioner 03/06/22 03/15/22 Yair Gallo MD [address] [place] [address] PCP - General Internal Medicine 03/16/22 03/16/22 Glenny Dyson NP [address] [place] [address] PCP - General Nurse Practitioner 03/17/22 04/14/22 Pcp, Unknown PCP - General 04/15/22 04/11/23 Pcp, Unknown PCP - General 04/12/23 10/02/24 Jo Ann Hebert PA [address] [place] [address] [place] [address] PCP - General Physician Geography Instructor 10/03/24 Octavio Castillo MD [address] [place] [address], [address] [place] [address] [email or web address] Insurance Assigned Provider 08/18/19 11/20/20 documented as of this encounter Additional Source Comments The information contained in this document represents components of the legal health record. It is not the complete legal health record.[facility]
--- OUTSIDE RECORDS SUMMARY | 2024-11-04 16:19 | XMS_ITS | Clinical Summary ---
Author Organization [address] Address [address] [place] [phone] Phone Care Team Providers Care Oracle Webcenter Consultant Name Role Phone Jo Ann Hebert Primary Care Provider [phone] Allergies Active Allergy Reactions Criticality Noted Date [...] mouth 1 (one) time each day. Active amphetamine-dextr oamphetamine (ADDERALL) 10 mg tablet Take 1 tablet [...] a day (before meals and nightly). Active amphetamine-dextr oamphetamine (ADDERALL) 20 mg tablet Take 1 tablet (20 mg total) by mouth 2 (two) times a day. Max Daily Amount: 40 mg Active tacrolimus (PROTOPIC) 0.1 % ointment Apply topically 2 (two) times a day. Active cephalexin (KEFLEX) 500 mg capsule Take 1 capsule (500 mg total) by mouth 4 (four) times a day for 14 days. 56 each 10/31/19 25 2024 Active tacrolimus (ENVARSUS XR) 0.75 mg extended release tablet Take 0.14 mg/kg by mouth 1 (one) time each day. 2024 Discontinued(E ntered in Error) oxyCODONE (ROXICODONE) 10 mg immediate release tablet Take 1 tablet (10 mg total) by mouth 3 (three) times a day if needed for severe pain. 2024 Discontinued cephalexin (KEFLEX) 500 mg capsule Take 1 capsule (500 mg total) by mouth 4 (four) times a day for 7 days. 28 each 10/07/19 25 2024 Discontinued docusate sodium (COLACE) 100 mg capsule Take 1 capsule (100 mg total) by mouth 2 (two) times a day for 10 days. 20 each 10/07/19 25 2024 ondansetron (ZOFRAN) 4 mg tablet Take 1 tablet (4 mg total) by mouth every 8 (eight) hours if needed for nausea or vomiting for up to 7 days. 20 tablet 10/07/19 25 2024 oxyCODONE (ROXICODONE) 5 mg immediate release tabletIndications :Abdominal pannus Take 1 tablet (5 mg total) by mouth every 4 (four) hours if needed for severe pain for up to 10 days. Max Daily Amount: 30 mg 40 each 10/07/19 25 2024 Discontinued(R eorder) cephalexin (KEFLEX) 500 mg capsule Take 1 capsule (500 mg total) by mouth 4 (four) times a day for 14 days. 56 each 10/07/19 25 2024 oxyCODONE-acetami nophen (PERCOCET) 5-325 mg per tabletIndications :Status post panniculectomy Take 1 tablet by mouth every 6 (six) hours if needed for severe pain for up to 8 days. Max Daily Amount: 4 tablets 30 tablet 10/24/19 25 2024 Discontinued(E ntered in Error) oxyCODONE (ROXICODONE) 5 mg immediate release tabletIndications :Abdominal pannus Take 1 tablet (5 mg total) by mouth every 4 (four) hours if needed for severe pain for up to 7 days. 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 Abdominal pannus 08/27/2024 Intertrigo 08/27/2024 Abrasion of labia minora 08/27/2024 Erythema intertrigo 08/27/2024 Morbid obesity with BMI of 4 0.0-44.9, adult ([facility] V24, [facility] V28) 11/23/2023 Allergic conjunctivitis of both eyes 06/19/2019 Perennial allergic rhinitis 06/19/2019 Arthralgia 04/09/2019 Lower abdominal pain 04/09/2019 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 Biopsies Abdominal ultrasound 03/31/17 wnl Asthma 09/24/2013 Encounters Date Type Department Care Team Description 11/03/2024 9:00 AM EDT Office Visit [facility] [address] [address] Sierra Isidro PA Status post panniculectomy (Primary Dx) 10/30/2024 1:00 PM EDT Office Visit [facility] [address] [address] Sierra Isidro PA Status post panniculectomy (Primary Dx) 10/27/2024 1:30 PM EDT Office Visit [facility] [address] [address] Sierra Isidro PA Status post panniculectomy (Primary Dx) 10/27/2024 Telephone Plastic & Reconstructive Surgery [address] [address] Gail Chavez MA 10/23/2024 1:30 PM EDT Office Visit Plastic & Reconstructive [address] [address] Sierra Isidro PA Status post panniculectomy (Primary Dx); Abdominal pannus 10/16/2024 7:39 AM EDT Anesthesia Event [facility] Main OR [address] [place] [address] AdeleTenzin, DO 10/16/2024 7:30 AM EDT - 10/16/2024 11:00 AM EDT Surgery [facility] OR [address] [place] [phone] Arturo Albarran DO PANNICULECTOMY [74099 (CPT )] 10/16/2024 6:15 AM EDT - 10/16/2024 2:26 PM EDT Hospital Encounter [facility] OR [address] [place] [address] Arturo Albarran DO Abdominal pannus; Abrasion of labia minora, sequela; Erythema intertrigo Discharge Disposition: Home or Self Care 10/06/2024 11:00 AM EDT Consult Plastic & Reconstructive Surgery [address] [address] Arturo Albarran DO Abdominal pannus (Primary Dx) 09/30/2024 Telephone General Surgery [facility] [address] [address] Arturo Albarran DO 08/29/2024 Telephone General Surgery [address] [address] Arturo Albarran DO 08/27/2024 11:00 AM EDT Consult Plastic & Reconstructive Surgery [address] [address] [place] Abdominal pannus (Primary Dx); [...] [facility] [address] [place] [phone] [place] PA [address] [place] [address] 12/09/2024 1:00 PM EDT Appointment [facility] Xray [address] [place] [address] Health Maintenance Due Date Last [...] - Td or Tdap) 10/12/2025 10/13/2015 RSV Immunization Adult Patients (1 - 1-dose 75+ series) 01/07/2064 HIV Screening Completed 06/14/2017 HIB Vaccines Aged [...] ENDOTRACHEAL(NO CHARGE) Routine 10/16/2024 8:08 AM EDT IA EXCISION EXCESSIVE SKIN/SUBCUTANEOUS TISSUE OTHER AREA 10/16/2024 7:39 AM EDT Abdominal pannus Erythema intertrigo Special Needs 2HRS WITH 30 MIN CLEAN IA EXCISION EXCESSIVE SKIN SUBQ TISSUE ABD INFRAUMBILICAL [...] pathologic change identified 10/17/2024 10:57 AM EDT [facility] Gross Description A. Vulva, right labia minora skin: Labeled vagina, right lab . Received in formalin is a 4.4 x 1.7 x 0.8 cm irregular wells-white rubbery portion of skin and subcutaneous tissue. The cut surfaces are wells-white and edematous. No mass lesions are appreciated. Fruit Washer sections are submitted in one cassette, two pieces. LEONA 10/17/2024 10:57 AM EDT [facility] Disclaimer Unless otherwise specified, all tissue is 10% NB formalin fixed and paraffin embedded. 10/17/2024 10:57 AM EDT [facility] Tissue Vulval structure / Unknown 10/16/2024 9:46 AM EDT 10/16/2024 12:21 PM EDT Arturo Albarran DO LAB PATHOLOGY ORDERABLES Fin al Result [facility] [address] [place] [address], * TH AN ENDOTRACHEAL(NO CHARGE) (10/16/2024 8:08 AM EDT) Narrative Tenzin Angulo DO - 10/16/2024 8:08 AM EDT Tenzin Angulo DO 10/17/2024 8:20 AM General Information and Staff Patient location during procedure: OR Anesthesiologist: Tenzin Angulo DO Resident/DIGITAL AD TRAFFICKER: Brooks Mello CRNA Performed: resident/DIGITAL AD TRAFFICKER/CAA Performed by: Brooks Mello CRNA Authorized by: [...] LAB COAGULATION METHOD 10/16/2024 7:09 AM EDT [facility] Blood Venous blood specimen / Unknown Venipuncture / Unknown 10/16/2024 6:44 AM EDT 10/16/2024 6:51 AM EDT Arturo Albarran DO LAB BLOOD ORDERABLES Final R esult Performing Organization Address City/[facility]/ZIP Co de Phone Number [facility] [address] [place] [address], [place] [phone] * Prothrombin time with INR (10/16/2024 6:44 AM EDT) Protime 11.7 10.6 - 13.9 sec LAB COAGULATION METHOD 10/16/2024 7:09 AM EDT [facility] INR 0.9 LAB COAGULATION METHOD 10/16/2024 7:09 AM EDT [facility] Blood Venous blood specimen / Unknown Venipuncture / Unknown 10/16/2024 6:44 AM EDT 10/16/2024 6:51 AM EDT Arturo Albarran DO LAB BLOOD ORDERABLES Final R esult Performing Organization Address City/[facility]/ZIP Co de Phone Number [facility] [address] [place] [address], [place] [phone] * BMP (10/16/2024 6:44 AM EDT) Sodium 140 133 - 145 mmol/L LAB CHEMISTRY METHOD 10/16/2024 7:14 AM [facility] Potassium 4.1 3.5 - 5.5 mmol/L LAB CHEMISTRY METHOD 10/16/2024 7:14 AM [facility] Chloride 105 96 - 110 mmol/L LAB CHEMISTRY METHOD 10/16/2024 7:14 AM [facility] CO2 31 21 - 32 mmol/L LAB CHEMISTRY METHOD 10/16/2024 7:14 AM [facility] Anion Gap 4 3 - 11 LAB CHEMISTRY METHOD 10/16/2024 7:14 AM [facility] Glucose 78 70 - 100 mg/dL LAB CHEMISTRY METHOD 10/16/2024 7:14 AM [facility] BUN 11 5 - 25 mg/dL LAB CHEMISTRY METHOD 10/16/2024 7:14 AM [facility] Creatinine 0.69 0.50 - 1.10 mg/dL LAB CHEMISTRY METHOD 10/16/2024 7:14 AM [facility] eGFR 116 >=60 mL/min/1. 73m2 LAB CHEMISTRY METHOD 10/16/2024 7:14 AM [facility] Comment:Calculation based on the Chronic Kidney Disease Epidemiology Collaboration (CKD-EPI) equation refit without adjustment for race. BUN/Creatinine Ratio 15.9 LAB CHEMISTRY METHOD 10/16/2024 7:14 AM [facility] Calcium 9.3 8.5 - 10.5 mg/dL LAB CHEMISTRY METHOD 10/16/2024 7:14 AM [facility] Blood Venous blood specimen / Unknown Venipuncture / Unknown 10/16/2024 6:44 AM EDT 10/16/2024 6:51 AM EDT Arturo Albarran DO LAB BLOOD ORDERABLES Final R esult [facility] [address] [place] [address], [place] [phone] * (ABNORMAL) Lipid panel (04/18/2018) LDL/HDL Ratio 4 0 - 4 Triglycerides 97 0 - 150 mg/dL Cholesterol 179 0 - 200 mg/dL HDL 42 >=40 mg/dL LDL Cholesterol 118(A) 0 - 100 mg/dL Blood Venous blood specimen / Unknown Result [facility] Historical Provider LAB BLOOD ORDERABLES Candis l Result * Hm HIV Screening (06/14/2017) HIV Screening abstracted Historical Provider HEALTH MAINTENANCE Final Result * Pap smear (06/13/2017) 06/13/2017 Narrative HISTORICAL TESTING LAB RESULTING AGENCY - 06/20/2017 4:55 PM EDT [id number] THINPREP PAP, IMAGED AND CELL BLOCK: NEGATIVE [...] Z12.4, Z34.81, PAP HX: NEGATIVE 06/09/2017, Long [facility] LAB CYTOLOGY ORDERA BLES Final Result HISTORICAL TESTING LAB RESULTING AGENCY from Last 3 Months or Most Recently Relevant to Health Maintenance Insurance [facility] [employer] Advance Directives * Full Code - Default [...] currently active code status orders. Care Teams [employer] Consultant Relationship Specialty Start Date End Date Jo Ann Hebert PA [address] [facility], [address] [place] [address] PCP - General 08/25/24
--- OUTSIDE RECORDS SUMMARY | 2024-11-04 16:19 | XMS_ITS | Encounter Summary ---
Author Organization [facility] Address [facility] [address] [place] [phone] Phone Care Team Providers Care Arts Manager Name Role Phone Glenny Dyson NP Primary Care Provider + Pcp, Unknown Primary Care Provider Unavailabl e Pcp, Unknown Primary Care Provider Unavailindiana e Jo Ann Hebert Primary Care Provide r Encounter Details Date Type Department Care Team (Late st Contact Info) Description 03/22/2022 Procedure Pass [facility], Ct Scan - [address] [address] Social History Tobacco Use Types Packs/Day Years [...] 2:47 AM EST Kevin Luo RN * [place] Suicide Severity Rating Scale (Screener/Recent Self-Report) Question Answer Date of Assessment Author 1. Wish to be (Past 1 Month) No 023 2:47 AM Kevin Nevarez, RN 2. Non-Specific Active Suici antonette Thoughts (Past 1 Month) No 03/22/2022 2:47 AM Prashant Nevarez RN 6. Suicidal Behavior (Lifetime) No 3 2:47 AM Kevin Nevarez RN documented as of this encounter Plan of Treatment Upcoming Encounters Date Type Department Care Team (Late st Contact Info) Description 11/11/2024 2:00 PM EDT Office Visit [facility] Department of Orthopaedic Surgery, Sports Medicine Service [address] [facility], [address] [place] [address] Jeremiah Leal MD [address] [place] [address] [email or web address] documented as of this encounter Visit Diagnoses Not on filedocumented in this encounter Additional Health Concerns Assessment Noted Time PHQ-2 Depression Total Score: 1 04/17/19 20 1:38 PM EST documented as of this encounter Care Teams Arts Manager Relationship Specialty Start Date End Date Glenny Dyson NP [address] [place] [address] PCP - General Nurse Practitioner 03/17/22 04/14/22 Pcp, Unknown PCP - General 04/15/22 04/11/23 Pcp, Unknown PCP - General 04/12/23 10/02/24 Jo Ann Hebert PA [address] [place] [address] [place] [address] PCP - General Physician Deburring And Tooling Machine Operator 10/03/24 documented as of this encounter Additional Source Comments The information contained in this document represents components of the legal health record. It is not the complete legal health record.[facility]
--- OUTSIDE RECORDS SUMMARY | 2024-11-04 16:19 | XMS_ITS | Encounter Summary ---
Author Organization [facility] Address [facility] [address] [place] [address] Phone Care Team Providers Care Die Maker Trim Name Role Phone Glenny Dyson NP Primary Care Provider + Pcp, Unknown Primary Care Provider Unavailabl e Pcp, Unknown Primary Care Provider Unavailabl e Jo Ann Hebert Primary Care Provide r Encounter Details Date Type Department Care Team (Late st Contact Info) Description 03/17/2022 Procedure Pass [facility]oscopy Admitting Dept Virtual Department [address] [place] [address] Social History Tobacco Use Types Packs/Day Years [...] Description 11/11/2024 2:00 PM EDT Office [place] [facility] Department of Orthopaedic Surgery, Sports Medicine Service [address] [facility], [address] [place] [phone] Jeremiah Leal MD [address] [place] [address] [email or web address] documented as of this encounter Visit Diagnoses Not on filedocumented in this encounter Additional Health Concerns Assessment Noted Time PHQ-2 Depression Total Score: 1 04/17/19 20 1:38 PM EST documented as of this encounter Care Teams Die Maker Trim Relationship Specialty Start Date End Date Glenny Dyson NP [address] [place] [address] PCP - General Nurse Practitioner 03/17/22 04/14/22 Pcp, Unknown PCP - General 04/15/22 04/11/23 Pcp, Unknown PCP - General 04/12/23 10/02/24 Jo Ann Hebert PA [address] [place] [address] [place] [address] PCP - General Physician Paradichlorobenzene Tender 10/03/24 documented as of this encounter Additional Source Comments The information contained in this document represents components of the legal health record. It is not the complete legal health record.[facility]
== END 2024-11-04 14:13 | disposition home or self-care (01) ==
LOC: HO.HMCH 13:17
DX: R00.2 Palpitations (principal); M35.7 Hypermobility syndrome; M35.2 Behcet's disease; S83.206A Unspecified tear of unspecified meniscus, current injury, right knee, initial encounter; G43.E19 Chronic migraine with aura, intractable, without status migrainosus; J34.9 Unspecified disorder of nose and nasal sinuses; S03.00XA Dislocation of jaw, unspecified side, initial encounter

== ENCOUNTER → 2024-11-10 12:39 | Outpatient (REF) | payer OTHER, SELFPAY ==
--- OUTSIDE RECORDS SUMMARY | 2024-11-10 13:49 | XMS_ITS | Encounter Summary ---
Author Organization [facility] Address [address] [place] [address] [place] [address] Phone Care Team Providers Care It Solutions Architect Name Role Phone Glenny Dyson NP Primary Care Provider + Pcp, Unknown Primary Care Provider Unavailabl e Pcp, Unknown Primary Care Provider Unavailabl e Jo Ann Hebert Primary Care Provide r Encounter Details Date Type Department Care Team (Late st Contact Info) Description 03/17/2022 Procedure Pass [facility]oscopy Admitting Dept Virtual Department [address] [place] [address] Social History Tobacco Use Types Packs/Day Years [...] Team (Late st Contact Info) Description 11/11/2024 1:15 PM EDT Appointment [address] [address] Jeremiah Leal MD [address] [place] [address] [email or web address] 11/11/2024 1:30 PM EDT Appointment [facility] [place] [address] [place] [address] Jeremiah Leal MD [address] [place] [address] [email or web address] 11/11/2024 2:00 PM EDT Office [place] [facility] Department of Orthopaedic Surgery, Sports Medicine Service [address], [address] [place] [address] Jeremiah Leal MD [address] [place] [address] [email or web address] documented as of this encounter Visit Diagnoses Not on filedocumented in this encounter Additional Health Concerns Assessment Noted Time PHQ-2 Depression Total Score: 1 04/17/19 20 1:38 PM EST documented as of this encounter Care Teams It Solutions Architect Relationship Specialty Start Date End Date Glenny Dyson NP [address] [place] [address] PCP - General Nurse Practitioner 03/17/22 04/14/22 Pcp, Unknown PCP - General 04/15/22 04/11/23 Pcp, Unknown PCP - General 04/12/23 10/02/24 Jo Ann Hebert PA [address] [place] [address] [place] [address] PCP - General Physician Software Engineering Specialist 10/03/24 documented as of this encounter Additional Source Comments The information contained in this document represents components of the legal health record. It is not the complete legal health record.[facility]
--- OUTSIDE RECORDS SUMMARY | 2024-11-10 13:49 | XMS_ITS | Encounter Summary ---
Author Organization [facility] Address [facility] [address] [place] [address] Phone Care Team Providers Care Tubing Drier Name Role Phone Glenny Dyson NP Primary Care Provider + Pcp, Unknown Primary Care Provider Unavailabl e Pcp, Unknown Primary Care Provider Unavailindiana e Jo Ann Hebert Primary Care Provide r Encounter Details Date Type Department Care Team (Late st Contact Info) Description 03/22/2022 Procedure Pass [facility] Ct Scan - [address] [address] Social History Tobacco Use Types Packs/Day Years [...] 2:47 AM EST Kevin Luo RN * [place] Suicide Severity Rating Scale (Screener/Recent Self-Report) Question [...] Info) Description 11/11/2024 1:15 PM EDT Appointment [facility] [address] [address] Jeremiah Leal MD [address] [place] [address] [email or web address] 11/11/2024 1:30 PM EDT Appointment [facility] [address] [address] Jeremiah Leal MD [address] [place] [address] [email or web address] 11/11/2024 2:00 PM EDT Office Visit [facility] Department of Orthopaedic Surgery, Sports Medicine Service [address] [place] [address], [address] [place] [address] Jeremiah Leal MD [address] [place] [address] [email or web address] documented as of this encounter Visit Diagnoses Not on filedocumented in this encounter Additional Health Concerns Assessment Noted Time PHQ-2 Depression Total Score: 1 04/17/19 20 1:38 PM EST documented as of this encounter Care Teams Tubing Drier Relationship Specialty Start Date End Date Glenny Dyson NP [address] [place] [address] PCP - General Nurse Practitioner 03/17/22 04/14/22 Pcp, Unknown PCP - General 04/15/22 04/11/23 Pcp, Unknown PCP - General 04/12/23 10/02/24 Jo Ann Hebert PA [address] [place] [address] [place] [address] PCP - General Physician Tape Duplicator 10/03/24 documented as of this encounter Additional Source Comments The information contained in this document represents components of the legal health record. It is not the complete legal health record.[facility]
--- OUTSIDE RECORDS SUMMARY | 2024-11-10 13:49 | XMS_ITS | Clinical Summary ---
Author Organization [address] Address [address] [place] [phone] Phone Care Team Providers Care Subsurface Augmentee Elint Operator Name Role Phone Jo Ann Hebert Primary Care Provider [phone] Allergies Active Allergy Reactions Criticality Noted Date [...] if needed for severe pain. 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 Abdominal pannus 08/27/2024 Intertrigo 08/27/2024 Abrasion of labia minora 08/27/2024 Erythema intertrigo 08/27/2024 Morbid obesity with BMI of 4 0.0-44.9, adult ([facility] V24, [facility] V28) 11/23/2023 Allergic conjunctivitis of both eyes 06/19/2019 Perennial allergic rhinitis 06/19/2019 Arthralgia 04/09/2019 Lower abdominal pain 04/09/2019 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, [facility]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 Melanoma in situ ([facility] V24, [facility] V28) 03/2018 Nevus 08/12/2018 Insulin controlled gestation [...] EDT Office [facility] [address] [address] Sierra Isidro PA Status post panniculectomy (Primary Dx) 10/30/2024 1:00 PM EDT Office Visit [facility] [address] [address] Sierra Isidro PA Status post panniculectomy (Primary Dx) 10/27/2024 1:30 PM EDT Office Visit [facility] [address] [address] Sierra Isidro PA Status post panniculectomy (Primary Dx) 10/27/2024 Telephone [facility] [address] [address] Gail Chavez MA 10/23/2024 1:30 PM EDT Office Visit [facility] [address] [address] Sierra Isidro PA Status post panniculectomy (Primary Dx); Abdominal pannus 10/16/2024 7:39 AM EDT Anesthesia Event [facility] [place] [address] [place] [address] Tenzin Angulo DO 10/16/2024 7:30 AM EDT - 10/16/2024 11:00 AM EDT Surgery [facility] [place] [address] [place] [phone] Arturo Albarran DO PANNICULECTOMY [[id number] (CPT )] 10/16/2024 6:15 AM EDT - 10/16/2024 2:26 PM EDT Hospital Encounter [facility] [place] [address] [place] [phone] Arturo Albarran DO Abdominal pannus; Abrasion of labia minora, sequela; Erythema intertrigo Discharge Disposition: Home or Self Care 10/06/2024 11:00 AM EDT Consult Plastic & Reconstructive Surgery [facility] [address] [address] Arturo Albarran DO Abdominal pannus (Primary Dx) 09/30/2024 Telephone General Surgery [facility] [address] [address] Arturo Albarran DO 08/29/2024 Telephone [facility] [address] [address] Arturo Albarran DO 08/27/2024 11:00 AM EDT Consult Plastic & Reconstructive [address] [address] [place] PA Abdominal pannus (Primary Dx); Intertrigo; Abrasion of labia minora, sequela; IgA deficiency ([facility] V24, [facility] V28) from Last 3 Months Immunizations Immunization Administration Dates Next Due Tdap Tetanus diptheria [...] Safety Answer Date Record ed Physical Abuse Unrecognized value 10/16/2024 Verbal Abuse Unrecognized value 10/16/2024 Comments No Sex and Gender Information [...] Office Visit [facility] [place] [address] [place] [address] [place] PA [address] [place] [phone] 12/09/2024 1:00 PM EDT Appointment [facility] Xray [address] [place] [phone] Health Maintenance Due Date Last Done Comments [...] ENDOTRACHEAL(NO CHARGE) Routine 10/16/2024 8:08 AM EDT [place] EXCISION EXCESSIVE SKIN/SUBCUTANEOUS TISSUE OTHER AREA 10/16/2024 7:39 AM EDT Abdominal pannus Erythema intertrigo Special Needs 2HRS WITH 30 MIN CLEAN [place] EXCISION EXCESSIVE SKIN SUBQ TISSUE ABD INFRAUMBILICAL [...] pathologic change identified 10/17/2024 10:57 AM EDT [facility]) [facility] Gross Description A. Vulva, right labia minora skin: Labeled vagina, right lab . Received in formalin is a 4.4 x 1.7 x 0.8 cm irregular wells-white rubbery portion of skin and subcutaneous tissue. The cut surfaces are wells-white and edematous. No mass lesions are appreciated. Area Operations Manager sections are submitted in one cassette, two pieces. LEONA 10/17/2024 10:57 AM EDT [facility] Disclaimer Unless otherwise specified, all tissue is 10% NB formalin fixed and paraffin embedded. 10/17/2024 10:57 AM EDT [facility] Tissue Vulval structure / Unknown 10/16/2024 9:46 AM EDT 10/16/2024 12:21 PM EDT Arturo Albarran DO LAB PATHOLOGY ORDERABLES Fin al Result [facility]) [facility] [address] [place] [address], * TH AN ENDOTRACHEAL(NO CHARGE) (10/16/2024 8:08 AM EDT) Tenzin Rodriguez DO - 10/16/2024 8:08 AM EDT Tenzin Angulo DO 10/17/2024 8:20 AM General Information and Staff Patient location during procedure: OR Anesthesiologist: Tenzin Angulo DO Resident/STATIONARY EQUIPMENT MECHANIC: Brooks Mello CRNA Performed: resident/STATIONARY EQUIPMENT MECHANIC/CAA Performed by: Brooks Mello CRNA Authorized by: [...] 1 - vent by mask Tenzin Angulo ANESTHESIA ORDERABLES Edited Re sult - Final * Activated partial thromboplastin time (10/16/2024 6:44 AM EDT) aPTT 35.0 24.1 - 39.3 sec LAB COAGULATION METHOD 10/16/2024 7:09 AM EDT [facility] Blood Venous blood specimen / Unknown Venipuncture / Unknown 10/16/2024 6:44 AM EDT 10/16/2024 6:51 AM EDT Arturo Albarran DO LAB BLOOD ORDERABLES Final R esult Performing Organization Address City/[facility]/ZIP Co de Phone Number [facility] [address] [place] [address], [place] [phone] * Prothrombin time with INR (10/16/2024 6:44 AM EDT) Pathologist [facility] Protime 11.7 10.6 - 13.9 sec LAB COAGULATION METHOD 10/16/2024 7:09 AM EDT [facility] INR 0.9 LAB COAGULATION METHOD 10/16/2024 7:09 AM EDT [facility] Blood Venous blood specimen / Unknown Venipuncture / Unknown 10/16/2024 6:44 AM EDT 10/16/2024 6:51 AM EDT Arturo Albarran DO LAB BLOOD ORDERABLES Final R esult Performing Organization Address City/[facility]/ZIP Co de Phone Number [facility] [address] [place] [address], [place] [phone] * BMP (10/16/2024 6:44 AM EDT) Sodium 140 133 - 145 mmol/L LAB CHEMISTRY METHOD 10/16/2024 7:14 AM [facility] Potassium 4.1 3.5 - 5.5 mmol/L LAB CHEMISTRY METHOD 10/16/2024 7:14 AM [facility] Chloride 105 96 - 110 mmol/L LAB CHEMISTRY METHOD 10/16/2024 7:14 AM [facility] CO2 31 21 - 32 mmol/L LAB CHEMISTRY METHOD 10/16/2024 7:14 AM [facility] Anion Gap 4 3 - 11 LAB CHEMISTRY METHOD 10/16/2024 7:14 AM [facility] Glucose 78 70 - 100 mg/dL LAB CHEMISTRY METHOD 10/16/2024 7:14 AM [facility] BUN 11 5 - 25 mg/dL LAB CHEMISTRY METHOD 10/16/2024 7:14 AM [facility] Creatinine 0.69 0.50 - 1.10 mg/dL LAB CHEMISTRY METHOD 10/16/2024 7:14 AM [facility] eGFR 116 >=60 mL/min/1. 73m2 LAB CHEMISTRY METHOD 10/16/2024 7:14 AM [facility] Comment:Calculation based on the Chronic Kidney Disease Epidemiology Collaboration (CKD-EPI) equation refit without adjustment for race. BUN/Creatinine Ratio 15.9 LAB CHEMISTRY METHOD 10/16/2024 7:14 AM [facility] Calcium 9.3 8.5 - 10.5 mg/dL LAB CHEMISTRY METHOD 10/16/2024 7:14 AM [facility] Blood Venous blood specimen / Unknown Venipuncture / Unknown 10/16/2024 6:44 AM EDT 10/16/2024 6:51 AM EDT Arturo Albarran DO LAB BLOOD ORDERABLES Final R esult [facility] [place] [facility] [address] [place] [address], * (ABNORMAL) Lipid panel (04/18/2018) LDL/HDL Ratio [...] RESULTING AGENCY - 06/20/2017 4:55 PM EDT [id number] THINPREP PAP, IMAGED AND CELL BLOCK: NEGATIVE [...] Z34.81, PAP HX: NEGATIVE 06/09/2017, [place] [facility] CYTOLOGY ORDERA BLES Final Result HISTORICAL TESTING LAB RESULTING AGENCY from Last 3 Months or Most Recently Relevant to Health Maintenance Insurance [employer] Advance Directives * Full Code - [...] currently active code status orders. Care Teams Subsurface Augmentee Elint Operator Relationship Specialty Start Date End Date Jo Ann Hebert PA [address] [place] [address], [address] [place], [place] [phone] PCP - General 08/25/24
--- OUTSIDE RECORDS SUMMARY | 2024-11-10 13:49 | XMS_ITS | Encounter Summary ---
Author Organization [facility] Address [facility] [address] [place] [address] Phone Care Team Providers Care Operating Systems Programmer Name Role Phone Nilda Watson Unavailable Octavio Castillo MD Primary Care Provider [phone] Octavio Castillo MD Unavailable [phone] Maryam Wu MD Primary Care Provid er Glenny Dyson NP Primary Care Provider + Yair Gallo MD Primary Care Provider Glenny Dyson EXTENSION SERVICE AGENT Primary Care Provider + Pcp, Unknown Primary Care Provider Unavailabl e Pcp, Unknown Primary Care Provider Unavailabl e Jo Ann Hebert Primary Care Provide r Encounter Details Date Type Department Care Team (Late st Contact Info) Description 04/26/2020 Ancillary Orders Virtual Department [address] [place] [address] Falguni Valer[address] [phone] [email or web address] Social History Tobacco Use Types [...] 1:15 PM EDT Appointment [facility] [address] [address] Jeremiah Leal MD [address] [place] [address] [email or web address] 11/11/2024 1:30 PM EDT Appointment [facility] [address] [address] Jeremiah Leal MD [address] [place] [address] [email or web address] 11/11/2024 2:00 PM EDT Office Visit [facility] Department of Orthopaedic Surgery, Sports Medicine Service [address] [place] [address], [address] [place] [address] Jeremiah Leal MD [address] [place] [address] [email or web address] documented as of this encounter Results [...] be consideredas indicated for this reason. Falguni Valerio [facility] IMG US ABDOMEN Final Resu lt documented [...] documented as of this encounter Care Teams Operating Systems Programmer Relationship Specialty Start Date End Date Nilda Watson PA [address] [place] [address] [email or web address] PCP - Resident PCP 04/11/19 07/14/21 Octavio Castillo MD [address] [place] [address], [address] [place] [address] PCP - General Internal Medicine 07/10/19 07/14/21 Maryam Wu MD [address] [address] [email or web address] PCP - General Family Medicine 07/15/21 03/05/22 Glenny Dyson NP [address] [place] [address] PCP - General Nurse Practitioner 03/06/22 03/15/22 Yair Gallo MD [address] [place] [address] PCP - General Internal Medicine 03/16/22 03/16/22 Glenny Dyson NP [address] [place] [address] [place] [address] PCP - General Nurse Practitioner 03/17/22 04/14/22 Pcp, Unknown PCP - General 04/15/22 04/11/23 Pcp, Unknown PCP - General 04/12/23 10/02/24 Jo Ann Hebert PA [address] [place] [address] PCP - General Physician Electric Switch Repairer 10/03/24 Octavio Castillo MD [address] [place] [address], [address] [place] [address] [email or web address] Insurance Assigned Provider 08/18/19 11/20/20 documented as of this encounter Additional Source Comments The information contained in this document represents components of the legal health record. It is not the complete legal health record.[facility]
--- OUTSIDE RECORDS SUMMARY | 2024-11-10 13:49 | XMS_ITS | Encounter Summary ---
Author Organization [facility] Address [address] [place] [address] Phone Care Team Providers Care Commercial Relief Driver Name Role Phone Jo Ann Hebert Primary Care Provide r Encounter Details Date Type Department Care Team (Late st Contact Info) Description 11/10/2024 Orders Only [facility] Department of Orthopaedics [address] [place] [address] Jeremiah Leal MD [address] [place] [address] [email or web address] Right knee pain, unspecified chronicity (Primary Dx); Left knee pain, unspecified chronicity Social History Tobacco Use Types Packs/Day Years [...] 1:15 PM EDT Appointment [place] [address] Jeremiah Leal MD [address] [place] [address] [email or web address] 11/11/2024 1:30 PM EDT Appointment [facility] [address] [address] Jeremiah Leal MD [address] [place] [address] [email or web address] 11/11/2024 2:00 PM EDT Office Visit [facility] Department of Orthopaedic Surgery, Sports Medicine Service [address] [facility], [address] [place] [address] Jeremiah Leal MD [address] [place] [address] [email or web address] Scheduled Orders Name Type Priority Associated Diagnoses Orde r Schedule XR Knee (Right) Imaging Routine Right knee pain, unspecified chronicity Expected: 11/11/2024, Expires: 02/09/2025 XR Knee (Left) Imaging Routine Left knee pain, unspecified chronicity Expected: 11/11/2024, Expires: 02/09/2025 documented as of this encounter Visit Diagnoses Diagnosis Right knee pain, unspecified chronicity- Primary Left knee pain, unspecified chronicity documented in this encounter Additional Health Concerns Assessment Noted Time PHQ-2 Depression Total Score: 1 04/17/19 20 1:38 PM EST documented as of this encounter Care Teams Commercial Relief Driver Relationship Specialty Start Date End Date Jo Ann Hebert PA [address] [place] [address] [place] [address] PCP - General Physician Pediatric Neurologist 10/03/24 documented as of this encounter Additional Source Comments The information contained in this document represents components of the legal health record. It is not the complete legal health record.[facility]
--- OUTSIDE RECORDS SUMMARY | 2024-11-10 13:49 | XMS_ITS | Clinical Summary ---
Author Organization [facility] Address [facility] [address] [address] Phone Care Team Providers Care Brick Or Block Maker Name Role Phone Jo Ann Hebert [...] tablet, 0 Refills, Maintenance, 03/06/22 14:34:00 [id number], Partial fill upon patient request if the [...] Conservative therapy not effective. Patient noting decreased outside sales consultant strength and progressive pain. -will refer to [...] 9:20 AM EDT): Will be scheduled with [facility] GI. Saw Dr. Reyes who [...] (04/20/2019 2:05 PM EDT): Possible GI vs PIPE FITTER etiology. S/p appendectomy-possible adhesion formation, endometriosis. -will obtain CT abdomen/pelvis. Has not had one since onset of pain -urgent referral to PIPE FITTER to discuss pain/recent u/s with possible retained [...] 2017. She would like referral to new inspector plumbing given her recent bad experience with criss [...] Patient has Phenergan and ibuprofen at home. Encounters Date Type Department Care Team Description 11/10/2024 Orders Only [facility] Department of Orthopaedics [address] [place] [address] Jeremiah Leal MD Right knee pain, unspecified chronicity (Primary Dx); Left knee pain, unspecified chronicity from Last 3 Months Immunizations Immunization Administration [...] 1:15 PM EDT Appointment [facility] [place] [address] [place] [phone] Jeremiah Leal MD [address] [place] [address] [email or web address] 11/11/2024 1:30 PM EDT Appointment [facility] [place] [address] [place] [address] Jeremiah Leal MD [address] [place] [phone] [email or web address] 11/11/2024 2:00 PM EDT Office Visit [facility] Department of Orthopaedic Surgery, Sports Medicine Service [address] [facility], [address] [place] [address] Jeremiah Leal MD [address] [place] [phone] [email or web address] Health Maintenance Due Date Last Done [...] topic Medical Devices Not on [place] [address] [place] [address] [place] [address] [place] [address] [place] [address] [place] [address] [place] [address] [place] [address] [facility] [facility] ACO [facility] ACO Care Teams Brick Or Block Maker Relationship Specialty Start Date End Date Jo Ann Hebert PA [address] [place] [address] [place] [address] PCP - General Physician Cheese Tester 10/03/24 Additional Source Comments The information contained in this document represents components of the legal health record. It is not the complete legal health record.[facility]
--- OUTSIDE RECORDS SUMMARY | 2024-11-10 13:49 | XMS_ITS | Encounter Summary ---
Author Organization [facility] Address [address] [place] [address] Phone Care Team Providers Care Pet Sitting Name Role Phone Pcp, Unknown Primary Care Provider Jo Ann Mg Primary Care Provide r Encounter Details Date Type Department Care Team (Late st Contact Info) Description 04/12/2023 Procedure Pass [facility], Ct Scan - [facility] [address] [place] [address] Social History Tobacco Use Types Packs/Day Years [...] 04/12/2023 9:23 PM Lucille Shah RN * Dawn Suicide Severity Rating Scale (Screener/Recent Self-Report) Question Answer Date of Assessment Author 1. Wish to be (Past 1 Month) No 024 9:23 PM Lucille Leung, DELORIS 2. Non-Specific Active Suici antonette Thoughts (Past 1 Month) No 04/12/2023 9:23 PM Jaime Leung, DELORIS 6. Suicidal Behavior (Lifetime) No 9:23 PM Lucille Leung, DELORIS documented as of this encounter Plan of Treatment Upcoming Encounters Date Type Department Care Team (Late st Contact Info) Description 11/11/2024 1:15 PM EDT Appointment [facility] [address] [place] [address] Jeremiah Leal MD [address] [place] [phone] [email or web address] 11/11/2024 1:30 PM EDT Appointment [facility] General Imaging [address] [place] [address] Jeremiah Leal MD [address] [place] [phone] [email or web address] 11/11/2024 2:00 PM EDT Office Visit [facility] Department of Orthopaedic Surgery, Sports Medicine Service [address] [facility], [address] [place] [address] Jeremiah Leal MD [address] [place] [address] [email or web address] documented as of this encounter Visit Diagnoses Not on filedocumented in this encounter Additional Health Concerns Assessment Noted Time PHQ-2 Depression Total Score: 1 04/17/19 20 1:38 PM EST documented as of this encounter Care Teams Pet Sitting Relationship Specialty Start Date End Date Pcp, Unknown PCP - General 04/12/23 10/02/24 Jo Ann Hebert PA [address] [place] [address] Dr [address] [place] [address] PCP - General Physician Shoulder Pad Molder 10/03/24 documented as of this encounter Additional Source Comments The information contained in this document represents components of the legal health record. It is not the complete legal health record.[facility]
--- OUTSIDE RECORDS SUMMARY | 2024-11-10 13:49 | XMS_ITS | Encounter Summary ---
Author Organization [facility] Address [address] [place] [address] Care Team Providers Care Superintendent Of Schools Name Role Phone Jo Ann Hebert Primary Care Provider [phone] Reason for Visit * Reason Onset Date Comments Post-op Problem 10/27/2024 Pain redness pos t panniculectomy Encounter Details Date Type Department Care Team (Late st Contact Info) Description 10/27/2024 Telephone [facility] [place] [address] [place] [address] Gail Chavez MA Social History Tobacco Use [...] Office Visit [facility] [place] [address] [place] [address] [place] PA [address] [place] [phone] 12/09/2024 1:00 PM EDT Appointment [facility] Xray [address] [place] [phone] documented as of this encounter Visit Diagnoses Not on filedocumented in this encounter Care Teams Superintendent Of Schools Relationship Specialty Start Date End Date Jo Ann Hebert PA [address] [facility], [address] [place] [address] PCP - General 08/25/24 documented as of this encounter
--- OUTSIDE RECORDS SUMMARY | 2024-11-10 13:49 | XMS_ITS ---
Author Organization [facility] Care Team Providers Care Pit Shoveler Name Role Phone Radha Griffiths Unavailable Unavailable Columba Jacques Unavailable Unavailable Kristin Farrell Unavailable Unavailable Philip PLANT ETIOLOGIST, Kasandra Alaniz Unavailable Unavailable Glenny Tabares Unavailable Unavailable Marjan Back Unavailable Unavailable Nilda Hernandez Unavailable Unavailable Jennifer Pat Unavailable Unavailable Allergies and adverse reactions Code CodeSystem Substance Reaction Severity StartDate Concern Status Latex Unknown 10/26/2023 active 4053 RXNORM Erythromycin Unknown 10/26/2023 active Adhesive Tape Unknown 10/26/2023 active Care Team Name Role Address Phone Organization Kayden Jacques PCP [address] [address], [facility] (Office): : [facility] 10/26/2023 - 11/08/2023 [place], [address], [facility] (Office): : [facility] 10/26/2023 - 11/08/2023 Kristin Farrell [address] [facility] [address] [address], [facility] (Office): : [phone] [facility] 10/26/2023 - 11/08/2023 Kasandra Palacios NP [address] [facility] [address] (Office): [facility] 10/26/2023 - 11/08/2023 Glenny Tabares [place], [facility] 10/26/2023 - 11/08/2023 Marjan Back [place], [facility] 10/26/2023 - 11/08/2023 Nilda Hernandez MA, [facility] 10/26/2023 - 11/08/2023 Jennifer Pat [address] [facility] [address], [place], [address], [facility] (Office): : [facility] 10/26/2023 - 11/08/2023 Medications Section Medication Name Status Code CodeSystem Dose Route Frequency Admin Type Sig Text Start Date End Date Indication MiraLax Oral Powder 17 GM/SCOOP active 54730 5 RXNORM 1 scoop Oral one time a day Routin e Give 1 scoop by mouth one time a day for const ipati on mix with 8 oz of water 2023 - constipatio n DULoxetine HCl Oral Capsule Delayed Release Sprinkle 60 MG active 38327 4 RXNORM 1 capsu le Oral one time a day Routin e Give 1 capsu le by mouth one time a day for depre ssion take with 30mg TD 90mg 2023 - depression Amphetamine -Dextroamph etamine Oral Tablet 10 MG active 16104 2 RXNORM 1 table t Oral as needed PRN Give 1 table t by mouth every 24 hours as neede d for ADHD 10mg po daily at 12 noon prn 2023 - ADHD Gabapentin Oral Tablet 800 MG active 46565 4 RXNORM 1 table t Oral every 8 hours Routin e Give 1 table t by mouth every 8 hours for neuro veena 2023 - neuropathy Amphetamine -Dextroamph etamine Oral Tablet 10 MG active 73136 2 RXNORM 2 table t Oral one time a day Routin e Give 2 table t by mouth one time a day for ADHD 2023 - ADHD Mupirocin External Ointment 2 % active 65029 6 RXNORM n/a n/a Topica l as needed PRN Apply to affec karen areas topic ally every 12 hours as neede d for rash 2023 - rash Famotidine Oral Tablet 20 MG active 18183 3 RXNORM 1 table t Oral every morning and at bedtime Routin e Give 1 table t by mouth every morni ng and at bedti me for bilia ry dyski nesia 2023 - biliary dyskinesia DULoxetine HCl Oral Capsule Delayed Release Sprinkle 30 MG active 52447 0 RXNORM 1 capsu le Oral one time a day Routin e Give 1 capsu le by mouth one time a day for depre ssion take with 60mg TD 90mg qd 2023 - depression Fleet Enema Enema 7-19 GM/118ML active 23396 5 RXNORM 1 dose Rectal as needed PRN Inser t 1 dose recta lly as neede d for Const ipati on (Step 3) as neede d if no bowel movem ent for 8 hours after bisac odyl suppo sitor y. 2023 - Constipatio n Milk of Magnesia Suspension 400 MG/5ML active 62621 7 RXNORM 30 ml Oral as needed PRN Give 30 ml by mouth as neede d for Const ipati on (Step 1) As neede d if no bowel movem ent for three days. (Do not use for Hemod ialys is patie nts). 2023 - Constipatio n Bisacodyl Suppository 10 MG active 9 RXNORM 1 suppo sitor y Rectal as needed PRN Inser t 1 suppo sitor y recta lly as neede d for If no bowel movem ent for 8 hours after Milk of Magne flora 2023 - If no bowel movement for 8 hours after Milk of Magnesia busPIRone HCl Oral Tablet 15 MG active 84133 8 RXNORM 1 table t Oral every morning and at bedtime Routin e Give 1 table t by mouth every morni ng and at bedti me for mood disor jose angel 2023 - mood disorder LORazepam Oral Tablet 0.5 MG active 0 RXNORM 1 table t Oral as needed PRN Give 1 table t by mouth every 6 hours as neede d for anxie ty 2023 - anxiety CeleBREX Oral Capsule 100 MG active 02164 8 RXNORM 1 capsu le Oral as needed PRN Give 1 capsu le by mouth every 12 hours as neede d for Pain 2023 - Pain Methocarbam ol Oral Tablet 500 MG active 3 RXNORM 1000 mg Oral three times a day Routin e Give 1000 mg by mouth three times a day for Pain hold for sedat ion 2023 - Pain Tylenol Extra Strength Oral Tablet 500 MG active 9 RXNORM 1000 mg Oral three times a day Routin e Give 1000 mg by mouth three times a day for PAIN DO NOT EXCEE D 3000M G 2023 - PAIN Cetirizine HCl Oral Tablet 5 MG active 14387 76 RXNORM 1 table t Oral as needed PRN Give 1 table t by mouth every 24 hours as neede d for aller gy sympt oms 2023 - allergy symptoms oxyCODONE HCl Oral Tablet 5 MG active 74383 21 RXNORM 5 mg Oral as needed PRN Give 5 mg by mouth every 8 hours as neede d for mild pain AND Give 10 mg by mouth every 8 hours as neede d for moder ate to sever e pain 2023 - mild pain 88614 21 RXNORM 10 mg Oral as needed PRN Give 5 mg by mouth every 8 hours as neede d for mild pain AND Give 10 mg by mouth every 8 hours as neede d for moder ate to sever e pain 2023 - moderate to severe pain Mental Status Section Date Assessment Total Score Description 11/08/2023 BIMS 15 cognitively int act CAM 0 No delirium ind icated PHQ-9 01 minimal depress ion 11/02/2023 BIMS 15 cognitively int act CAM 0 No delirium ind icated PHQ-9 01 minimal depress ion Problems Problem # Description Date of onset Resolved Date Code CodeSystem Concern Status 1 ACQUIRED ABSENCE OF OTHER SPECIFIED PARTS OF DIGESTIVE TRACT [address] active 2 ANXIETY DISORDER, UNSPECIFIED [address] active 3 CHRONIC PAIN SYNDROME [address] active 4 FIBROMYALGIA [address] active 5 MUSCLE WEAKNESS (GENERALIZED) [address] active 6 OTHER ABNORMALITIES OF GAIT AND MOBILITY [address] active 7 OTHER SPECIFIED DISEASES OF GALLBLADDER [address] active 8 POSTCHOLECYSTECTOMY SYNDROME [address] active 9 WEAKNESS [address] active Reason for Referral No Reasons for Referral Entered Social History Social History Observation Description Start Date End Date Code Code System Current Smoking Status Tobacco smoking consumption unknown 810961915 SNOMED CT Sex Assigned At Female 1990 76773-5 [facility] Gender Identity Sexual Orientation Vital Signs Code Code System Vitals Name Values and Units Timing Information 9279-1 [facility] Respiratory Rate Value=18.0 Units=/m in 11/08/2023 8462-4 [facility] Blood Pressure-Diastolic Value=80 Un its=mmHg 11/08/2023 8480-6 [facility] Blood Pressure-Systolic Vjwgi=126 Un its=mmHg 11/08/2023 8310-5 [facility] Body Temperature Value=98.0 Units= F 11/08/2023 8867-4 [facility] Heart rate Value=72.0 Units=/min 72998-1 [facility] O2 % dC Oximetry Value=97.0 Units= % 11/08/2023 91390-7 [facility] Pain Level Value=0.0 11/08/2023 63167-1 [facility] Weight Zrgyc=782.6 Units=Lbs 8302-2 [facility] Height Value=63.0 Units=Inches 10/27/2023
--- OUTSIDE RECORDS SUMMARY | 2024-11-10 13:49 | XMS_ITS | Encounter Summary ---
Author Organization [facility] Address [facility] [address] [place] [address] Phone Care Team Providers Care Wireless Construction Manager Name Role Phone Pcp, Unknown Primary Care Provider Unavailabl e Pcp, Unknown Primary Care Provider Unavailabl e Jo Ann Hebert Primary Care Provide r Encounter Details Date Type Department Care Team (Late st Contact Info) Description 04/15/2022 Procedure Pass [facility], Ct Scan - [address] [address] Social History Tobacco Use Types Packs/Day Years [...] 04/15/2022 7:37 PM Glenny Brothers RN * [place] Suicide Severity Rating Scale (Screener/Recent Self-Report) Question [...] 1:15 PM EDT Appointment [facility] [address] [address] Jeremiah Leal MD [address] [place] [address] [email or web address] 11/11/2024 1:30 PM EDT Appointment [facility] [address] [address] Jeremiah Leal MD [address] [place] [address] [email or web address] 11/11/2024 2:00 PM EDT Office Visit [facility] Department of Orthopaedic Surgery, Sports Medicine Service [address] [place] [address], [address] [place] [address] Jeremiah Leal MD [address] [place] [address] [email or web address] documented as of this encounter Visit Diagnoses Not on filedocumented in this encounter Additional Health Concerns Assessment Noted Time PHQ-2 Depression Total Score: 1 04/17/19 20 1:38 PM EST documented as of this encounter Care Teams Wireless Construction Manager Relationship Specialty Start Date End Date Pcp, Unknown PCP - General 04/15/22 04/11/23 Pcp, Unknown PCP - General 04/12/23 10/02/24 Jo Ann Hebert PA [address] [place] [address] [place] [address] PCP - General Physician Watch Crystal Cutter 10/03/24 documented as of this encounter Additional Source Comments The information contained in this document represents components of the legal health record. It is not the complete legal health record.[facility]
--- OUTSIDE RECORDS SUMMARY | 2024-11-10 13:49 | XMS_ITS | Clinical Summary ---
Author Organization [facility] Address [address] [place] [address] Care Team Providers Care Retirement Administrator Name Role Phone Ana Cortez NP Primary Care Provider [phone] Allergies Active Allergy Reactions Criticality Noted Date [...] age to complete this topic Care Teams Retirement Administrator Relationship Specialty Start Date End Date Ana Cortez NP [address] [address] PCP - General Family Medicine 09/21/22
== END ==
LOC: HO.CARD 12:39
PROVIDERS: Visit Provider Nurse Practitioner Family
DX: R00.2 Palpitations (principal); R00.0 Tachycardia, unspecified
CPT/HCPCS: 93242

== ENCOUNTER 2024-12-25 13:55 | Outpatient (AMB) | payer OTHER, SELFPAY ==
--- NOTE | 2024-12-25 13:55 | A.OFFVIS_ITS ---
Intake Visit Reasons: Cystoscopy Hydrodistension Intake Note: Patient presents today via telehealth for cystoscopy hydrodistention post op Urology Medication:None Blood Thinner:None Antibiotic Allergies:Erythromycin Allergies hydroxychloroquine (From Plaquenil) Allergy (Intermediate, Verified 02/03/25 11:54) Vomiting leflunomide Allergy (Intermediate, Verified 02/03/25 11:54) Diarrhea adhesive tape Allergy (Unknown, Verified 02/03/25 11:54) Unknown erythromycin base (ERYTHROMYCIN BASE) Allergy (Unknown, Verified 02/03/25 11:54) UNKNOWN latex (LATEX) Allergy (Unknown, Verified 02/03/25 11:54) UNKNOWN acetaminophen (From Tylenol) Adverse Reaction (Unknown, Verified 02/03/25 11:54) elevates LFT's HPI Comments Details: 12/26/24-- History of Present Illness The patient is a 34-year-old female presenting with ongoing issues related to interstitial cystitis and associated bladder dysfunction. h/o Bechets Disease, Ehler Danlos disease, IGA deficiency, Osteoarthritis, Head melanoma, Chronic pain, Myopathy, Neuropathy, Migraine, Marie has a history of interstitial cystitis and underwent cystoscopy hydrodistension in August. Since the procedure, she reports that her symptoms have remained unchanged. She experiences difficulty in completely emptying her bladder, often requiring manual manipulation to initiate urination. She is s/p panniculectomy, and labiaplasty by recontructive surgeon 3 months ago. Will continue to monitor IC flares. 06/23/24--34 year old female h/o Bechets Disease, Ehler Danlos disease, IGA deficiency, Osteoarthritis, Head melanoma, Chronic pain, Myopathy, Neuropathy, Migraine, presenting for new patient evaluation, hematuria. She has experienced recurrent urinary tract infections over the past two years, with concurrent difficulties in urination, including incomplete voiding and sporadic urinary leakage. She states that she has pelvic prolapse and we will need to push her bladder back into the vagina to allow adequate emptying of the bladder and sometimes when she is urinating. Urinalysis today reveals 1+ blood, without leukocytes or bacteria. 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 She complains of intermittent pain with urination as well as she has seen dark specks and dark colored urine which she attributes to blood in the urine. I have discussed further evaluation with outpatient office cystoscopy. Additionally, management of pelvic organ prolapse requires further evaluation from urogynecology, and an interim pessary fitting was suggested to alleviate symptoms. She is requesting Prescription for lidocaine jelly to provide relief of pain related to vaginal mucosal tears. Patient has family history of breast cancer, aunt, we will hold on local vaginal estrogen therapy at this time. Feverish sensation during urination; no burning pain noted. Results - Urinalysis: Leukocytes negative, blood 1+. - CT Scan (abdomen and pelvis) from 03/25/24: Kidneys normal, no calculi noted, bladder unremarkable. 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 Father No problems noted. Social History Household Members: Spouse and Family Housing: House Are you a primary acute care nurse practitioner to a significant other at home: No Do you presently have visiting nurse or other home services: No Alcohol intake: current Alcohol intake frequency: does not drink Patient Tobacco Use Status: Former Tobacco user Tobacco use type: Cigarette e-Cigarette/Vaping Use: Currently Using Second Hand Smoke Exposure: Yes Substance Use Type: Marijuana Advance Directives Date on File: 10/29/23 service: No Current occupational status: disabled Cognitive needs: Yes (Wheelchair, Walker, Cane) Hearing needs: No Vision needs: Yes (Glasses) Female Reproductive History Menstrual Age of Menarche: 10 Telehealth Telehealth Telehealth Platform: Telephone Location of provider rendering services: practice address Location of patient: address on file Patient Identification confirmed using: Name, : Yes Telehealth method: voice only Patient verbally consented to treatment: Yes Patient verbally consented to billing insurance company: Yes Patient informed of any privacy concerns related to visit: Yes Assessment & Plan Assessment & Plan (1) Prolapse of female pelvic organs: Code(s): N81.9 - Female genital prolapse, unspecified Category: Medical Qualifiers: Prolapse type: unspecified female genital prolapse Qualified Code(s): N81.9 - Female genital prolapse, unspecified (2) History of pyelonephritis: Code(s): Z87.448 - Personal history of other diseases of urinary system Category: Medical (3) Chronic interstitial cystitis: Code(s): N30.10 - Interstitial cystitis (chronic) without hematuria Category: Medical Plan Will continue to monitor IC flares. Patient Instructions: The patient had an opportunity to ask questions regarding treatment plan. The patient expressed understanding and agreement with the above treatment plan. The patient is aware they should contact our office by phone for worsening of their current condition or the appearance of new symptoms. Compliance is encouraged with any medications and followup testing that is ordered. It is a privilege to be allowed the opportunity to participate in the urologic care of your patient. If you have any questions or concerns regarding treatment for the above conditions please do not hesitate to contact me. The office telephone contact is [phone]. This note is constructed in part using voice recognition software. While every effort has been made to ensure accuracy gold prospector errors may have been included. Yours sincerely, Maci Gonzalez MD Scribe Plan - Not visible on output: Patient was informed and verbally consented to the use of an ambient scribe for clinic note documentation during this visit. Coding Level of Care Code Est Pt Level 3 (37075) Add On Problem Visit Only Diagnoses Female genital prolapse, unspecified type N81.9 Prolapse type: unspecified female genital prolapse History of pyelonephritis Z87.448 Chronic interstitial cystitis N30.10
--- OUTSIDE RECORDS SUMMARY | 2024-12-25 17:19 | XMS_ITS | Encounter Summary ---
Author Organization [facility] Address [facility] [employer] [facility] [address] [place] [address] Phone Care Team Providers Care Corporation Officer Name Role Phone Nilda Watson Unavailable Octavio Castillo MD Primary Care Provider [phone] cOtavio Castillo MD Unavailable [phone] Maryam Wu MD Primary Care Provid er Glenny Dyson NP Primary Care Provider + Juan F Gallo MD Primary Care Provider + Glenny Dyson SWITCHBOARD WIRER Primary Care Provider + Pcp, Unknown Primary Care Provider Unavailabl e Pcp, Unknown Primary Care Provider Unavailabl e Jo Ann Hebert Primary Care Provide r Encounter Details Date Type Department Care Team (Late st Contact Info) Description 04/26/2020 Ancillary Orders Virtual Department [address] [place] [address] Falguni Valerio [address] [phone] viral [email or web address] RUQ pain Social History Tobacco Use Types [...] Care Team (Late st Contact Info) Description 12/18/2024 Procedure Pass [facility] for [facility] - [place] [address] [facility], 6th [place] [address] 01/02/2025 3:00 PM EST Appointment [facility] Outpatient Care - [place] [address] [place] [address], [address] [place] [address] Natalee Dotson PA-C [address] [place] [address] Department [place] [address] [email or web address] documented as of this encounter Results [...] consideredas indicated for this reason. Falguni Valerio CN IMG US ABDOMEN Final [...] documented as of this encounter Care Teams Corporation Officer Relationship Specialty Start Date End Date Nilda Watson PA [address] [place] [address] [email or web address] PCP - Resident PCP 04/11/19 07/14/21 Octavio Castillo MD [address] [place] [address] [email or web address] PCP - General Internal Medicine 07/10/19 07/14/21 Maryam Wu MD [address] [place] [address] [email or web address] PCP - General Family Medicine 07/15/21 03/05/22 Glenny Dyson NP [address] [place] [address] PCP - General Nurse Practitioner 03/06/22 03/15/22 Juan F Gallo MD [address] [place] [address] PCP - General Internal Medicine 03/16/22 03/16/22 Glenny Dyson NP [address] [place] [address] PCP - General Nurse Practitioner 03/17/22 04/14/22 Pcp, Unknown PCP - General 04/15/22 04/11/23 Pcp, Unknown PCP - General 04/12/23 10/02/24 Jo Ann Hebert PA [address] [place] [address] [place] [address] PCP - General Physician Media Technician 10/03/24 Octavio Castillo MD [address] [place] [address], [address] [place] [address] [email or web address] Insurance Assigned Provider 08/18/19 11/20/20 documented as of this encounter Additional Source Comments The information contained in this document represents components of the legal health record. It is not the complete legal health record.[facility]
--- OUTSIDE RECORDS SUMMARY | 2024-12-25 17:19 | XMS_ITS | Clinical Summary ---
Author Organization [facility] Address [address] [place] [address] Care Team Providers Care Machine Castings Plasterer Name Role Phone Ana Cortez Primary Care Provider [phone] Allergies Active Allergy Reactions Criticality Noted Date [...] Assessment & Plan: Will be scheduled with [facility] GI. Saw Dr. [...] Annual Screening 02/13/2024 COVID-19 Vaccine (1 - 2024- season) 2024 Influenza Vaccine (#1) 2024 DTaP,Tdap,and Td Vaccines (2 - Td or Tdap) 10/12/2025 10/13/2015 Insurance [facility] [phone] [employer]ICA[employer] Care Teams Machine Castings Plasterer Relationship Specialty Start Date End Date Ana Cortez [address] [place] [address] PCP - General 04/10/23
--- OUTSIDE RECORDS SUMMARY | 2024-12-25 17:19 | XMS_ITS | Encounter Summary ---
Author Organization [facility] Address [facility] [employer] [address] [place] [address] Phone Care Team Providers Care Recreation Leader Name Role Phone Pcp, Unknown Primary Care Provider Unavailabl e Pcp, Unknown Primary Care Provider Unavailabl e Jo Ann Hebert Primary Care Provide r Encounter Details Date Type Department Care Team (Late st Contact Info) Description 04/15/2022 Procedure Pass [facility], Ct Scan - [address] [address] Social History Tobacco Use Types Packs/Day Years [...] 04/15/2022 7:37 PM Glenny Brothers RN * [place] Suicide Severity Rating Scale (Screener/Recent Self-Report) Question Answer Date of Assessment Author 1. Wish to be (Past 1 Month) No 04/15/2022 7:37 PM EST Cadigan, Glenny H, RN 2. Non-Specific Active Suici antonette Thoughts (Past 1 Month) No 04/15/2022 7:37 PM EST Pham Francisco RN 6. Suicidal Behavior (Lifetime) No 7:37 PM EST Glenny Francisco RN documented as of this encounter Plan of Treatment Upcoming Encounters Date Type Department Care Team (Late st Contact Info) Description 12/18/2024 Procedure Pass [facility] for Outpatient Care - CT [address] [facility], [address] [place] [address] 01/02/2025 3:00 PM EST Appointment [facility] Outpatient Care - CT [address] [place] [address], [address] [place] [address] Natalee Dotson PA-C [address] [place] [address] Department [place] [address] [email or web address] documented as of this encounter Visit Diagnoses Not on filedocumented in this encounter Additional Health Concerns Assessment Noted Time PHQ-2 Depression Total Score: 1 04/17/19 20 1:38 PM EST documented as of this encounter Care Teams Recreation Leader Relationship Specialty Start Date End Date Pcp, Unknown PCP - General 04/15/22 04/11/23 Pcp, Unknown PCP - General 04/12/23 10/02/24 Jo Ann Hebert PA [address] [place] [address] Dr Dennis [address] [place] [address] PCP - General Physician Senior Management Consultant 10/03/24 documented as of this encounter Additional Source Comments The information contained in this document represents components of the legal health record. It is not the complete legal health record.[facility]
--- OUTSIDE RECORDS SUMMARY | 2024-12-25 17:19 | XMS_ITS | Encounter Summary ---
Author Organization [facility] Address [facility] [employer] [facility] [address] [place] [address] Phone Care Team Providers Care Conductor Freight Name Role Phone Glenny Dyson NP Primary Care Provider + Pcp, Unknown Primary Care Provider Unavailabl e Pcp, Unknown Primary Care Provider Unavailabl e Jo Ann Hebert Primary Care Provide r Encounter Details Date Type Department Care Team (Late st Contact Info) Description 03/17/2022 Procedure Pass [facility]oscopy Admitting Dept Virtual Department [address] [place] [address] Social History Tobacco Use Types Packs/Day Years [...] st Contact Info) Description 12/18/2024 Procedure Pass [facility] Outpatient Care - [place] [address] [facility], 6th [place] [address] 01/02/2025 3:00 PM EST Appointment [facility] Outpatient Care - CT [address] [facility], 6th [place] [address] Natalee Dotson PA-C [address] [place] [address] Department [place] [address] [email or web address] documented as of this encounter Visit Diagnoses Not on filedocumented in this encounter Additional Health Concerns Assessment Noted Time PHQ-2 Depression Total Score: 1 04/17/19 20 1:38 PM EST documented as of this encounter Care Teams Conductor Freight Relationship Specialty Start Date End Date Glenny Dyson NP [address] [place] [address] PCP - General Nurse Practitioner 03/17/22 04/14/22 Pcp, Unknown PCP - General 04/15/22 04/11/23 Pcp, Unknown PCP - General 04/12/23 10/02/24 Jo Ann Hebert PA [address] [place] [address] [place] [address] PCP - General Physician Scientific Recruiter 10/03/24 documented as of this encounter Additional Source Comments The information contained in this document represents components of the legal health record. It is not the complete legal health record.[facility]
--- OUTSIDE RECORDS SUMMARY | 2024-12-25 17:19 | XMS_ITS | Encounter Summary ---
Author Organization [facility] Address [facility] [address] [place] [address] Phone Care Team Providers Care Transportation Dispatch Manager Name Role Phone Glenny Dyson NP Primary Care Provider + Pcp, Unknown Primary Care Provider Unavailabl e Pcp, Unknown Primary Care Provider Unavailindiana e Jo Ann Hebert Primary Care Provide r Encounter Details Date Type Department Care Team (Late st Contact Info) Description 03/22/2022 Procedure Pass [facility], Ct Scan - [address] [address] Social History Tobacco Use Types Packs/Day Years [...] 2:47 AM EST Kevin Luo RN * [place] Suicide Severity Rating Scale (Screener/Recent Self-Report) Question Answer Date of Assessment Author 1. Wish to be (Past 1 Month) No 023 2:47 AM Kevin Nevarez, DELORIS 2. Non-Specific Active Suici antonette Thoughts (Past 1 Month) No 03/22/2022 2:47 AM Prashant Nevraez RN 6. Suicidal Behavior (Lifetime) No 3 2:47 AM Kevin Nevarez RN documented as of this encounter Plan of Treatment Upcoming Encounters Date Type Department Care Team (Late st Contact Info) Description 12/18/2024 Procedure Pass [facility] for Outpatient Care - CT [address] [facility], [address] [place] [address] 01/02/2025 3:00 PM EST Appointment [facility] Outpatient Care - CT [address] [facility], [address] [place] [address] Natalee Dotson PA-C [address] [place] [address] Department [place] [address] [email or web address] documented as of this encounter Visit Diagnoses Not on filedocumented in this encounter Additional Health Concerns Assessment Noted Time PHQ-2 Depression Total Score: 1 04/17/19 20 1:38 PM EST documented as of this encounter Care Teams Transportation Dispatch Manager Relationship Specialty Start Date End Date Glenny Dyson NP [address] [place] [address] PCP - General Nurse Practitioner 03/17/22 04/14/22 Pcp, Unknown PCP - General 04/15/22 04/11/23 Pcp, Unknown PCP - General 04/12/23 10/02/24 Jo Ann Hebert PA [address] [place] [address] [place] [address] PCP - General Physician Director Of Math 10/03/24 documented as of this encounter Additional Source Comments The information contained in this document represents components of the legal health record. It is not the complete legal health record.[facility]
--- OUTSIDE RECORDS SUMMARY | 2024-12-25 17:19 | XMS_ITS | Clinical Summary ---
Author Organization [facility] Address [facility] [address] [place] [phone] Phone Care Team Providers Care Marketing Strategy Lead Name Role Phone Jo Ann Hebert Primary Care Provide r Allergies Active Allergy Reactions Criticality Noted Date Comments Adhesive Rash High 03/09/2019 Erythromycin Rash Low 01/18/2006 Gadolinium-Containing Contrast Media 03/17/2022 Iodine Hives 08/03/2022 Patient reports not allergic Latex Hives,Rash High 03/09/2019 Medications EPINEPHrine 0.3 [...] tablet, 0 Refills, Maintenance, 03/06/22 14:34:00 [id number], Partial fill upon patient request if the [...] Partial fill ok 5 tablet 03/22/19 Active Additional Information Patient not taking.Reported on 12/18/2024 DULoxetine (CYMBALTA) 60 MG capsule Take 60 mg by mouth every morning. Active dextroamphetamine- amphetamine (ADDERALL) 30 mg Tab tablet TAKE ONE (1) TABLET BY MOUTH AT BEDTIME AND ONE (1) TABLET EVERY AFTERNOON 11/29/19 Active gabapentin (NEURONTIN) 800 MG tablet Take 800 mg by mouth daily. 10/27/19 24 Active oxyCODONE HCl 10 mg Tab Take 10 mg by mouth every 3 (three) hours as needed. 12/18/19 Active colchicine (COLCRYS) 0.6 mg tablet Take 0.6 mg by mouth daily. Active inFLIXimab (REMICADE) 100 mg injection Inject 3 mg/kg into the vein once. Active diazePAM (VALIUM) 5 MG tablet Take 5 mg by mouth every 6 (six) hours as needed. Active minoxidiL (LONITEN) 2.5 MG tablet Take 0.5 tablets by mouth every morning. 10/08/19 Active tiZANidine (ZANAFLEX) 4 MG tablet Take 4 mg by mouth every 6 (six) hours as needed. 12/09/19 Active nabumetone (RELAFEN) 500 MG tablet Take 500 mg by mouth 2 (two) times a day. Active lidocaine 5 % ointment Apply 1 Application topically daily. 11/14/19 Active RESTASIS 0.05 % suspension Place 1 drop into each eye 2 (two) times a day. 12/09/19 Active XIIDRA 5 % ophthalmic solution Place 1 drop into each eye 2 (two) times a day. 12/09/19 Active AIMOVIG AUTOINJECTOR 140 mg/mL subcutaneous injection Inject 140 mg under the skin every 28 days. 12/18/19 Active Active Problems Problem Noted Date Diagnosed [...] Conservative therapy not effective. 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 -will refer to [...] 9:20 AM EDT): Will be scheduled with [facility] GI. Saw Dr. Reyes who [...] (04/20/2019 2:05 PM EDT): Possible GI vs STONEWORK TRACER etiology. S/p appendectomy-possible adhesion formation, endometriosis. -will obtain CT abdomen/pelvis. Has not had one since onset of pain -urgent referral to STONEWORK TRACER to discuss pain/recent u/s with possible retained [...] 2017. She would like referral to new public interviewer given her recent bad experience with criss [...] Encounters Date Type Department Care Team Description 12/18/2024 2:30 PM EST Office Visit [facility] Orthopedics [address] [address] Cr Kidd MD Patellar instability of right knee (Primary Dx); Patellar instability of left knee; Instability of right knee joint 11/11/2024 2:00 PM EDT Office Visit [facility] Department of Orthopaedic Surgery, Sports Medicine Service [address] [place] [address], [address] [place] [address] Jeremiah Leal MD Patellar instability of right knee (Primary Dx); Chronic pain of right knee; Patellar instability of left knee; Old tear of meniscus of right knee, unspecified meniscus, unspecified tear type; EDS (Kings-Danlos syndrome); POTS (postural orthostatic tachycardia syndrome); Behcet's disease; Right foot drop 11/11/2024 1:30 PM EDT - 11/11/2024 11:59 PM EDT Hospital Encounter [place] [phone] Jeremiah Leal MD Discharge Disposition: Home or Self Care 11/11/2024 1:15 PM EDT - 11/11/2024 1:29 PM EDT Hospital Encounter [place] [phone] Jeremiah Leal MD Discharge Disposition: Home or Self Care 11/11/2024 Ancillary Orders [facility] [address] [place] [address] Jeremiah Leal MD 11/11/2024 Ancillary Orders [facility] [address] [place] [address] Jeremiah Leal MD 11/11/2024 Ancillary Orders [facility] [address] [place] [address] Jeremiah Leal MD 11/10/2024 Orders Only [facility] Department of Orthopaedics [address] [place] [address] Jeremiah Leal MD Right knee pain, unspecified chronicity (Primary Dx); Left knee pain, unspecified chronicity 10/12/2024 - 10/12/2024 11:59 PM EDT Hospital Encounter [facility] [address] [place] [address] Jeremiah Leal MD Discharge Disposition: Home or [...] Date Smoking Tobacco: Former Cigarettes 1 10 2014 Smokeless Tobacco: Never Alcohol Use Standard [...] - - Weight 79.4 kg (175 lb) 12/18/2024 2:36 PM EST Height 162.6 cm (5' 4 ) 12/18/2024 2:36 PM EST Body Mass Index 30.04 12/18/2024 2:36 PM EST Plan of Treatment Upcoming Encounters Date Type Department Care Team (Late st Contact Info) Description 12/18/2024 Procedure Pass [facility] [place] [address] [place] [address], [address] [place] [address] 01/02/2025 3:00 PM EST Appointment [facility] [place] [address] [facility], 6th [place] [address] Natalee Dotson PA-C [address] [place] [address] Department [place] [address] [email or web address] Health Maintenance Due Date Last Done Comments COVID-19 VACCINE (#1) 1994 SMOKING Hx and SMOKELESS TOBACCO SCREENING 2002 HEPATITIS C SCREENING 2007 HIV ONE-TIME SCREENING (18-6 5 YEARS) 2007 PNEUMOCOCCAL VACCINES (0-49 years) (1 of 2 - PCV) 01/07/2008 DEPRESSION SCREENING 04/16/2020 04/17/2019 PAP SMEAR 06/13/2020 06/13/2017 INFLUENZA VACCINE (#1) 2024 Adult Td,Tdap Booster 10/12/2025 10/13/2015 SCREENING FOR DIABETES 04/11/2026 4, 12/05/2019 HEPATITIS A VACCINES Aged Out No long er eligible based on patient's age to complete this topic HIB VACCINES Aged Out No longer eligi ble based on patient's age to complete this topic IPV VACCINES Aged Out No longer eligi ble [...] change. Moderate effusion. Procedure [facility]/2024 XR KNEE 3 VIEW (RIGHT), [...] change. Moderate effusion. Procedure Note [facility] - 11/11/2024 XR KNEE 3 VIEW (RIGHT), [...] (No Interpretation) (10/12/2024 12:00 AM EDT) Narrative [facility] INTERFACES - 11/11/2024 2:42 PM EDT This study is for PACS storage only and not for interpretation. us Jeremiah Leal MD IMG OUTSIDE IMAGING W/OUT INTE RPRETATION Final Result [facility] from Last 3 Months Insurance [facility] [place] [address] [place] [address] [place] [address] [place] [address] [place] [address] [place] [address] [facility] ACO Care Teams Marketing Strategy Lead Relationship Specialty Start Date End Date Jo Ann Hebert PA [address] [place] [address] [place] [address] PCP - General Physician Labor Conciliator 10/03/24 Additional Source Comments The information contained in this document represents components of the legal health record. It is not the complete legal health record.[facility]
--- OUTSIDE RECORDS SUMMARY | 2024-12-25 17:19 | XMS_ITS | Clinical Summary ---
Author Organization [facility] Address [address] [place] [address] Care Team Providers Care Front Maker Name Role Phone Ana Cortez NP Primary Care Provider [phone] Allergies Active Allergy Reactions Criticality Noted Date [...] age to complete this topic Care Teams Front Maker Relationship Specialty Start Date End Date Ana Cortez NP [address] [address] PCP - General Family Medicine 09/21/22
--- OUTSIDE RECORDS SUMMARY | 2024-12-25 17:19 | XMS_ITS | Clinical Summary ---
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 Abdominal pannus 08/27/2024 Intertrigo 08/27/2024 Abrasion of labia minora 08/27/2024 Erythema intertrigo 08/27/2024 Morbid obesity with BMI of 4 0.0-44.9, adult ([facility] V24, [facility] V28) 11/23/2023 Allergic conjunctivitis of both eyes 06/19/2019 Perennial allergic rhinitis 06/19/2019 Arthralgia 04/09/2019 Lower abdominal pain 04/09/2019 IgA deficiency ([facility] V24, [facility]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 Biopsies Abdominal ultrasound 03/31/17 wnl Asthma 09/24/2013 Encounters Date Type Department Care Team Description 12/11/2024 10:15 AM EDT Office [facility] [address] [address] [place] Status post panniculectomy (Primary Dx); Aftercare following surgery of the skin or subcutaneous tissue 12/04/2024 1:07 PM EDT - 12/04/2024 11:59 PM EDT Hospital Encounter [facility] Ultrasound [address] [place] [address] Status post panniculectomy; Abdominal wall seroma, sequela Discharge Disposition: Home or Self Care 11/24/2024 11:30 AM EDT Office Visit [facility] [address] [address] [place] Abdominal wall seroma, sequela (Primary Dx); Status post panniculectomy 11/18/2024 10:30 AM EDT Office Visit [facility] [address] [address] [place] Isidro PA Status post panniculectomy (Primary Dx) 11/03/2024 9:00 AM EDT Office Visit [facility] [address] [address] Sierra Isidro PA Status post panniculectomy (Primary Dx) 10/30/2024 1:00 PM EDT Office Visit [facility] [address] [address] Sierra Isidro PA Status post panniculectomy (Primary Dx) 10/27/2024 1:30 PM EDT Office Visit [facility] [address] [address] Sierra Isidro PA Status post panniculectomy (Primary Dx) 10/27/2024 Telephone Plastic & Reconstructive Surgery [facility] [address] [address] Gail Chavez MA 10/23/2024 1:30 PM EDT Office Visit [facility]astic & Reconstructive Surgery [facility] 300 [facility] [address] [place] [address] Sierra Isidro PA Status post panniculectomy (Primary Dx); Abdominal pannus 10/16/2024 7:39 AM EDT Anesthesia Event [facility] Main OR [address] [place] [phone] Tenzin Angulo DO 10/16/2024 7:30 AM EDT - 10/16/2024 11:00 AM EDT Surgery [facility] OR [address] [place] [phone] Arturo Albarran DO PANNICULECTOMY [23889 (CPT )] 10/16/2024 6:15 AM EDT - 10/16/2024 2:26 PM EDT Hospital Encounter [facility] OR [address] [place] [phone] Arturo Albarran DO Abdominal pannus; Abrasion of labia minora, sequela; Erythema intertrigo Discharge Disposition: Home or Self Care 10/06/2024 11:00 AM EDT Consult Plastic & Reconstructive Surgery [facility] [address] [facility] [address] [place] [address] Arturo Albarran DO Abdominal pannus (Primary Dx) 09/30/2024 Telephone General Surgery [facility] 175 [facility] [address] [place] [phone] Arturo Albarran DO from Last 3 Months Immunizations Immunization Administration Dates Next Due Tdap Tetanus diptheria acell ular pertussis (Boostrix; Adacel) 7yo and older 10/13/2015 Surgical History Surgery Date Site/Laterality Comments TONSILLECTOMY PROCEDURE: HISTORICAL TONSILLECTOMY OTHER SURGICAL HISTORY PROCEDURE: REMOVAL OF TMJ CONDYLE APPENDECTOMY PROCEDURE: HISTORICAL APPENDECTOMY ESOPHAGOGASTRODUODENOSCOPY 03/29/15 PROCEDURE: GA EGD TRANSORAL BIOPSY SINGLE/MULTIPLE; COMMENT: mild distal [...] Years Used Date Smoking Tobacco: Former Cigarettes 0 Q uit: 03/15/2016 Smokeless Tobacco: Never Alcohol [...] Care Team (Late st Contact Info) Description 01/05/2025 11:30 AM EST Office Visit [facility] [place] [address] [place] [address] Sierra Isidro PA [address] [place] [phone] Health Maintenance Due Date Last Done Comments [...] Procedure Name Priority Date/Time Associated Diagnosis Comments US GUIDED SOFT TISSUE FLUID DRAIN Routine 12/04/2024 2:07 PM EDT Status post panniculectomy Abdominal wall seroma, sequela CULTURE WOUND DEEP Routine 11/24/2024 11:35 AM EDT Status post panniculectomy Abdominal wall seroma, sequela CULTURE WOUND DEEP Routine 11/18/2024 11:12 AM EDT Status post panniculectomy TISSUE EXAM Routine 10/16/2024 9:46 AM EDT Erythema intertrigo Abdominal pannus TH AN ENDOTRACHEAL(NO CHARGE) Routine 10/16/2024 8:08 AM EDT GA EXCISION EXCESSIVE SKIN/SUBCUTANEOUS TISSUE OTHER AREA 10/16/2024 7:39 AM EDT Abdominal pannus Erythema intertrigo Special Needs 2HRS WITH 30 MIN CLEAN GA EXCISION EXCESSIVE SKIN SUBQ TISSUE ABD INFRAUMBILICAL [...] Recently Relevant to Health Maintenance Results * US Guided Soft Tissue Fluid Drain (12/04/2024 2:07 PM EDT) Anatomical Region Laterality Modality Body N/A Ultrasound 12/04/2024 2:35 PM EDT Impressions 12/04/2024 2:36 PM EDT Ultrasound-guided abdominal wall collection aspiration yielding 15 mL of serosanguineous fluid. -------- FINAL REPORT -------- Dictated By: Bernabe Lin Dictated Date: 12/04/2024 14:35 ET Assigned Physician: Bernabe Lin Reviewed and Electronically Signed By: Bernabe Lin Signed Date: 12/04/2024 14:36 ET Workstation ID: [id number] Transcribed By: Self Edit Transcribed Date: 12/04/2024 14:35 ET Narrative 12/04/2024 2:36 PM EDT Ultrasound-guided aspiration INDICATION: Patient status post abdominoplasty with residual abdominal wall seroma. Patient has been drained in the office several times. No fevers or chills. Initial ultrasound imaging demonstrates a very small amount of fluid along the incision line extending mostly from the mid line abdomen to the left anterolateral abdomen. Patient provided informed written consent. The overlying skin was prepped and draped in usual and sterile fashion. 5 mL of 1% LIDOCAINE was used for local anesthesia. A 5-Portuguese G.I. [place] catheter was advanced under continuous ultrasound guidance into this thin collection. After the needle was removed a total of 15 mL of serosanguineous fluid was evacuated with resolution of the visualized thin fluid collection. The remainder of the incision was reexamined and no additional substantial pockets were identified. Hemostasis was achieved and sterile dressing applied. Patient tolerated the procedure well with no immediate competitions. Procedure Note Bernabe Lin MD - 12/04/2024 Ultrasound-guided aspiration INDICATION: Patient status post abdominoplasty with residual abdominalwall seroma. Patient has been drained in the office several times. No fevers or chills. Initial ultrasound imaging demonstrates a very small amount of fluid alongthe incision line extending mostly from the mid line abdomen to the leftanterolateral abdomen. Patient provided informed written consent. The overlying skin was preppedand draped in usual and sterile fashion. 5 mL of 1% LIDOCAINE was usedfor local anesthesia. A 5-Portuguese Map Decisions catheter was advanced undercontinuous ultrasound guidance into this thin collection. After theneedle was removed a total of 15 mL of serosanguineous fluid was evacuatedwith resolution of the visualized thin fluid collection. The remainder ofthe incision was reexamined and no additional substantial pockets wereidentified. Hemostasis was achieved and sterile dressing applied. Patient tolerated the procedure well with no immediate competitions. IMPRESSION: Ultrasound-guided abdominal wall collection aspiration yielding 15 mL ofserosanguineous fluid. -------- FINAL REPORT -------- Dictated By: Bernabe Lin Dictated Date: 12/04/2024 14:35 ET Assigned Physician: Bernabe Lin Reviewed and Electronically Signed By: Bernabe Lin Signed Date: 12/04/2024 14:36 ET Workstation ID: [id number] Transcribed By: Self Edit Transcribed Date: 12/04/2024 14:35 ET us Sierra HUYNH US PROCEDURES Final Result * Culture wound deep (11/24/2024 11:35 AM EDT) Only the most recent of2 resultswithin the time period is included. Culture, Wound No growth at 3 days 11/27/2024 8:26 AM EDT [facility] Gram Stain Result No polymorphonuclear leukocytes, No epithelial cells, and No organisms noted 11/27/2024 8:26 AM EDT [facility] Swab Structure of abdominopelvic wall / Unknown Non-blood Collection / Unknown 11/24/2024 11:35 AM EDT 11/24/2024 11:35 AM EDT New GUPTA LAB MICROBIOLOGY - GENERAL OR DERABLES Final Result [facility] [address] [place] [address], [place] [phone] * Tissue exam (10/16/2024 9:46 AM EDT) Final Diagnosis Vulva, right labia minora, labiaplasty: Benign squamous epithelial-lined tissue without hair follicles, consistent with labium minus No significant pathologic change identified 10/17/2024 10:57 AM EDT [facility] Gross Description A. Vulva, right labia minora skin: Labeled vagina, right lab . Received in formalin is a 4.4 x 1.7 x 0.8 cm irregular wells-white rubbery portion of skin and subcutaneous tissue. The cut surfaces are wells-white and edematous. No mass lesions are appreciated. Travel Ticketing Reviewer sections are submitted in one cassette, two pieces. LEONA 10/17/2024 10:57 AM EDT [facility] Disclaimer Unless otherwise specified, all tissue is 10% NB formalin fixed and paraffin embedded. 10/17/2024 10:57 AM EDT [facility] Tissue Vulval structure / Unknown 10/16/2024 9:46 AM EDT 10/16/2024 12:21 PM EDT Arturo Albarran DO LAB PATHOLOGY ORDERABLES Fin al Result [facility] [address] [place] [address], * TH AN ENDOTRACHEAL(NO CHARGE) (10/16/2024 8:08 AM EDT) Tenzin Rodriguez DO - 10/16/2024 8:08 AM EDT Tenzin Angulo DO 10/17/2024 8:20 AM General Information and Staff Patient location during procedure: OR Anesthesiologist: Tenzin Angulo DO Resident/OIL EXTRACTOR: Brooks Mello CRNA Performed: resident/OIL EXTRACTOR/CAA Performed by: Brooks Mello CRNA Authorized by: [...] LAB COAGULATION METHOD 10/16/2024 7:09 AM EDT [facility] Blood Venous blood specimen / Unknown Venipuncture / Unknown 10/16/2024 6:44 AM EDT 10/16/2024 6:51 AM EDT Arturo Albarran DO LAB BLOOD ORDERABLES Final R esult [facility] [address] [place] [address], [place] [phone] * Prothrombin time with INR (10/16/2024 6:44 AM EDT) Protime 11.7 10.6 - 13.9 sec LAB COAGULATION METHOD 10/16/2024 7:09 AM EDT [facility] INR 0.9 LAB COAGULATION METHOD 10/16/2024 7:09 AM EDT [facility] Blood Venous blood specimen / Unknown Venipuncture / Unknown 10/16/2024 6:44 AM EDT 10/16/2024 6:51 AM EDT us Arturo Albarran DO LAB BLOOD ORDERABLES Final R esult [facility] [address] [place] [address], [place] [phone] * BMP (10/16/2024 6:44 AM EDT) Sodium 140 133 - 145 mmol/L LAB CHEMISTRY METHOD 10/16/2024 7:14 AM [facility] Potassium 4.1 3.5 - 5.5 mmol/L LAB CHEMISTRY METHOD 10/16/2024 7:14 AM [facility] Chloride 105 96 - 110 mmol/L LAB CHEMISTRY METHOD 10/16/2024 7:14 AM [facility] CO2 31 21 - 32 mmol/L LAB CHEMISTRY METHOD 10/16/2024 7:14 AM [facility] Anion Gap 4 3 - 11 LAB CHEMISTRY METHOD 10/16/2024 7:14 AM [facility] Glucose 78 70 - 100 mg/dL LAB CHEMISTRY METHOD 10/16/2024 7:14 AM [facility] BUN 11 5 - 25 mg/dL LAB CHEMISTRY METHOD 10/16/2024 7:14 AM [facility] Creatinine 0.69 0.50 - 1.10 mg/dL LAB CHEMISTRY METHOD 10/16/2024 7:14 AM [facility] eGFR 116 >=60 mL/min/1. 73m2 LAB CHEMISTRY METHOD 10/16/2024 7:14 AM [facility] Comment:Calculation based on the Chronic Kidney Disease Epidemiology Collaboration (CKD-EPI) equation refit without adjustment for race. BUN/Creatinine Ratio 15.9 LAB CHEMISTRY METHOD 10/16/2024 7:14 AM EDT [facility] Calcium 9.3 8.5 - 10.5 mg/dL LAB CHEMISTRY METHOD 10/16/2024 7:14 AM EDT [facility] Blood Venous blood specimen / Unknown Venipuncture / Unknown 10/16/2024 6:44 AM EDT 10/16/2024 6:51 AM EDT Arturo Albarran DO LAB BLOOD ORDERABLES Final R esult [facility] [address] [place] [address], [place] [phone] * (ABNORMAL) Lipid panel (04/18/2018) LDL/HDL Ratio 4 0 - 4 Triglycerides 97 0 - 150 mg/dL Cholesterol 179 0 - 200 mg/dL HDL 42 >=40 mg/dL LDL Cholesterol 118(A) 0 - 100 mg/dL Blood Venous blood specimen / Unknown Historical Provider LAB BLOOD ORDERABLES Candis l Result * Hm HIV Screening (06/14/2017) Pathologist [facility] HIV Screening abstracted Historical Provider HEALTH MAINTENANCE Final Result * Pap smear (06/13/2017) 06/13/2017 Narrative HISTORICAL TESTING LAB RESULTING AGENCY - 06/20/2017 4:55 PM EDT [id number] THINPREP PAP, IMAGED AND CELL BLOCK: NEGATIVE [...] Most Recently Relevant to Health Maintenance Insurance [facility] [employer] Advance Directives * Full Code - [...] currently active code status orders. Care Teams Manager Integrity Relationship Specialty Start Date End Date Jo Ann Hebert PA [address] [place] [address], [address] [place], [place] [phone] PCP - General 08/25/24
--- OUTSIDE RECORDS SUMMARY | 2024-12-25 17:19 | XMS_ITS | Encounter Summary ---
Author Organization [facility] Address [address] [place] [address] Care Team Providers Care Emergency Physician Name Role Phone Ana Cortez Primary Care Provider [phone] Encounter Details Date Type Department Care Team (Late st Contact Info) Description 08/11/2022 Orders Only [facility] [address] [place] [address] Brenda Willard, DO [address] [place], [place] [phone] Social History Tobacco Use Types Packs/Day Years [...] on filedocumented in this encounter Care Teams Emergency Physician Relationship Specialty Start Date End Date Ana Cortez [address] [place] [address] PCP - General 04/10/23 documented as of this encounter
--- OUTSIDE RECORDS SUMMARY | 2024-12-25 17:19 | XMS_ITS | Encounter Summary ---
Author Organization [facility] Address [address] [place] [address] Phone Care Team Providers Care Cardiology Associate Name Role Phone Pcp, Unknown Primary Care Provider Jo Ann Mg Primary Care Provide r Encounter Details Date Type Department Care Team (Late st Contact Info) Description 04/12/2023 Procedure Pass [facility], Ct Scan - [facility] [address] [place] [address] Social History Tobacco Use Types Packs/Day Years [...] 9:23 PM EST Lucille Lara RN * [place] Suicide Severity Rating Scale (Screener/Recent Self-Report) Question [...] st Contact Info) Description 12/18/2024 Procedure Pass [facility] [place] [address] [place] [address] 01/02/2025 3:00 PM EST Appointment [facility] [place] 32 [facility], [address] [place] [address] Natalee Dotson PA-C [address] [place] [address] Department [place] [address] [email or web address] documented as of this encounter Visit Diagnoses Not on filedocumented in this encounter Additional Health Concerns Assessment Noted Time PHQ-2 Depression Total Score: 1 04/17/19 20 1:38 PM EST documented as of this encounter Care Teams Cardiology Associate Relationship Specialty Start Date End Date Pcp, Unknown PCP - General 04/12/23 10/02/24 Jo Ann Hebert PA [address] [place] [address] [place] [address] PCP - General Physician Metal Handler 10/03/24 documented as of this encounter Additional Source Comments The information contained in this document represents components of the legal health record. It is not the complete legal health record.[facility]
== END 2024-12-25 16:54 | disposition home or self-care (01) ==
LOC: HO.HUSH 13:55
PROVIDERS: Visit Provider Urology
DX: N81.9 Female genital prolapse, unspecified (principal); Z87.448 Personal history of other diseases of urinary system; N30.10 Interstitial cystitis (chronic) without hematuria
CPT/HCPCS: 99213

== ENCOUNTER → 2024-12-25 13:55 | Outpatient (BNVA) | payer OTHER, SELFPAY | PROVIDERS: Visit Provider Urology | DX: N30.10 Interstitial cystitis (chronic) without hematuria (principal); N81.9 Female genital prolapse, unspecified; Z87.448 Personal history of other diseases of urinary system | CPT/HCPCS: 99212 ==

== ENCOUNTER 2024-12-31 10:45 | Outpatient (AMB) | payer OTHER, SELFPAY ==
--- NOTE | 2024-12-31 10:48 | A.OFFVIS_ITS ---
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 Accompanied by: Self / Same As Patient Allergies hydroxychloroquine (From Plaquenil) Allergy (Intermediate, Verified 12/31/24 10:53) Vomiting leflunomide Allergy (Intermediate, Verified 12/31/24 10:53) Diarrhea adhesive tape Allergy (Unknown, Verified 12/31/24 10:53) Unknown erythromycin base (ERYTHROMYCIN BASE) Allergy (Unknown, Verified 12/31/24 10:53) UNKNOWN latex (LATEX) Allergy (Unknown, Verified 12/31/24 10:53) UNKNOWN acetaminophen (From Tylenol) Adverse Reaction (Unknown, Verified 12/31/24 10:53) elevates LFT's Medication List - Last Reconciled 12/31/24 by Rhys Turcios MD [AFO As directed] atogepant (Qulipta) 60 mg PO DAILY cephalexin 500 mg PO QID colchicine 0.6 mg PO BID 30 days cyclosporine 0.05% (Restasis) 1 drp ophthalmic (eye) BID dextroamphetamine-amphetamine 10 mg ER (Adderall XR) 1 cap PO QAM dextroamphetamine-amphetamine 20 mg 1 tab PO BID diazepam 5 mg PO TID PRN dicyclomine 20 mg (2 x 10 mg) PO BID PRN 90 days docusate sodium 100 mg PO BID duloxetine 60 mg PO DAILY duloxetine 30 mg PO DAILY epinephrine (EpiPen) 0.3 mg (0.3 mL) IM Q10M PRN erenumab-aooe (Aimovig Autoinjector) 140 mg subcut QMONTH famotidine 20 mg PO BID gabapentin 1 tab at bedtime 3 days and titrate to bid for 3 days then tid orally 3 times a day; glucosamine-chondroitin 250-200 mg (Osteo Bi-Flex) 2 tabs PO BID leg brace (Knee Support Brace) wear as directed. Bilateral knee hinged brace with patella stabilization. Dx: Kings-Danlos Syndrome lidocaine 5% 1 appl topical BID PRN lidocaine HCl 2% 1 appl topical BID-TID PRN Magic Mouthwash Diphen/Lido/Antacid 1:1:1 240 mL orally; Lidocaine Viscous 2 % 80mL; diphenhydramine 12.5 mg/5 mL 80mL; aluminum-mag hydrox-simeth [id number]/5mL 80mL Swish, gargle and split 5 mL every 4-6 hours as needed. metoclopramide HCl 5 mg PO TID PRN minoxidil 1.25 mg PO BEDTIME mupirocin 2% 1 appl topical BID PRN nabumetone 500 mg PO BID 30 days ondansetron 4 mg PO BID PRN oxycodone 10 mg PO Q8H prednisolone acetate 1% 1 drp ophthalmic (eye) DAILY prucalopride (Motegrity) 1 mg PO DAILY 90 days Shower Chair As directed tizanidine 4 mg PO Q8H 30 days [transfer bench As directed] ubrogepant (Ubrelvy) 50 mg PO ONCE PRN walker (Ultra-Light Rollator misc) As directed [wheelchair As directed] HPI HPI 3months: Details: She recently started Rituximab 12/02/2024. She had 2 induction doses. She has less joint swelling. Persistent pain. She showed me photos from November revealing swelling in her right ankle with erythema of her whole leg. She also showed me photos of swelling of her hands involving her PIPs. She had to increase frequency of colchicine TID for a few days when oral ulcers increase greater than 10 on 3 occasions. She is now background b.i.d. dosing. She has vomiting dark brown/black material representing coffee-ground emesis in the photo she has showed me. She continues to have abdominal pain and constipation. She is having difficulty with swallowing. SHe had panniculectomy in October. She is healing well from surgery. 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 Father No problems noted. Social History Household Members: Spouse and Family Housing: House Are you a primary manager urgent care to a significant other at home: No Do you presently have visiting nurse or other home services: No Alcohol intake: current Alcohol intake frequency: does not drink Patient Tobacco Use Status: Former Tobacco user Tobacco use type: Cigarette e-Cigarette/Vaping Use: Currently Using Second Hand Smoke Exposure: Yes Substance Use Type: Marijuana Advance Directives Date on File: 10/29/23 service: No Current occupational status: disabled Cognitive needs: Yes (Wheelchair, Walker, Cane) Hearing needs: No Vision needs: Yes (Glasses) Female Reproductive History Menstrual Age of Menarche: 10 Physical Exam Vital Signs: Last Vital Signs Pulse 66 12/31/24 10:49 BP 110/80 12/31/24 10:49 Pulse Ox 99 12/31/24 10:49 Oxygen Delivery Method Room Air 12/31/24 10:49 BMI result Body Mass Index 22.3 Const Other: General: Comfortable CVS: RRR Respiratory: clear to auscultation bilaterally. Good respiratory effort Oral: She has an aphthous ulcer on her right lower gum MSK: Tender to palpate bilateral MCPs, PIPs, wrist and shoulders. Normal range of motion of upper extremity. Patient is examined in wheelchair. Tender to palpate bilateral knees with increased laxity of patella. She has difficulty getting up out of wheelchair. She is able to ambulate with holding my arm while I walk with her. While she ambulates she has valgus deformity in her knees. Assessment & Plan Assessment & Plan (1) Behcet disease with multisystem involvement: Comment: She has been having intermittent flares of oral ulcers being off of Otezla. She is managing recurrent oral ulcers by increasing dose of colchicine 0.6 mg from b.i.d. to t.i.d. temporarily. Synovitis has resolved with 2 induction doses of Remicade. Need more time for full effect. 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 Partial control with colchicine 0.6mg BID for oral ulcers with side effect of diarrhea (when she discontinued it, ulcers increased). Otezla 02/2024-11/2024 when Remicade was started, controlled oral ulcers and cutaneous disease. Low- dose prednisone causes agitation. No benefit in controlling joint pain with methylprednisolone. Cortisone injections to bilateral knees from pain management PSSP caused increased pain. MTX caused diarrhea. She has MTHFR mutation. 4 days on Leflunomide caused headache, nausea, dizziness, abdominal pain and hair loss. She has history of dry eyes (SSA/SSB negative) treated with prednisolone topical, punctate plugs by Dr. Michel. She did not tolerate hydroxychloroquine due to vomiting started by Ophthalmology for dry eye syndrome. She saw Dr. Luther Villavicencio Opthalmologist 03/14/2024 who did not see any clinical signs of systemic inflammation in her eyes. She has history of Raynaud's syndrome and benign hypermobility syndrome. History of uterine and rectal prolapse. She was referred to Genetics at [facility] but no showed to appointment as patient did not have a ride. Neurological evaluation with imaging and EMGs have not revealed neurological involvement of Behcet's syndrome. She has had bilateral upper and R lower extremity EMG is that revealed bilateral carpal tunnel syndrome (03/2023 [facility] note), EMGs bilateral lower extremities [facility] 11/02/2023 normal, CT brain December 2022 and MRI C to T-spine 08/22/2022, MRI L-spine January 2021 has been negative. MRI brain May 2023 ordered by neurologist at [facility] was negative. Remicade started for inflammatory arthritis 12/02/2024- Code(s): M35.2 - Behcet's disease Category: Medical Plan: Continue colchicine 0.6 mg b.i.d maintenance.. She will increase frequency to t.i.d. during flares of oral ulcers temporarily Discontinue nabumetone 500 mg b.i.d. due to episode of coffee-ground emesis. I have asked her to contact GI for further evaluation with consideration of EGD Labs for disease and drug monitoring ordered Continue Infliximab 3 milligram/kilogram last dose of induction schedule next month then maintenance every 8 weeks Return to clinic in 3 months (2) Other assisted (current) drug therapy: Code(s): Z79.899 - Other assisted (current) drug therapy Category: Medical Plan: See above (3) Bilateral knee pain: Comment: Subluxation of patella is contributing to her knee pain in setting of history of hypermobile EDS. Failed physical therapy, knee bracing, acetaminophen, multiple NSAIDs. Intra-articular cortisone injection caused increased pain. MRI bilateral knees (07/2024, 08/2024) with and without contrast did not reveal inf lammatory arthritis. She has right knee medial and lateral meniscal tear. She has left knee tear of the origin of the gastrocnemius tendon. She does not have significant arthritis on imaging to contribute to her pain. Caution is advised with consideration of surgery due to the increased laxity of her tendons. She has seeked academic opinion with orthopedic surgery [facility]. She was not happy with her evaluation. Code(s): M25.561 - Pain in right knee; M25.562 - Pain in left knee Category: Medical Qualifiers: Chronicity: chronic Qualified Code(s): M25.561 - Pain in right knee; M25.562 - Pain in left knee; G89.29 - Other chronic pain Plan: I recommend that she seek opinion from Dr. Palomo at [facility] Orthopedic surgery Department (4) Coffee ground emesis: Comment: With associated abdominal pain Code(s): K92.0 - Hematemesis Category: Medical Plan: I have asked her to contact GI for evaluation with consideration of EGD Discontinue nabumetone. Avoid oral NSAIDs. Orders: Orders Aspartate Amino Transferase Today Z79.899 - Other manager long term care (current) drug therapy Creatinine Today Z79.899 - Other assisted (current) drug therapy Erythrocyte Sedimentation Rate Today Z79.899 - Other manager long term care (current) drug therapy Complete Blood Count Auto Diff Today Z79.899 - Other assisted (current) drug therapy Alanine Aminotransferase Today Z79.899 - Other assisted (current) drug therapy C Reactive Protein Today Z79.899 - Other manager long term care (current) drug therapy Medications: Discontinued nabumetone Take with food Discontinued Reason: Doctor's Order 500 mg PO BID 30 days 60 tabs 0RF Coding Level of Care Code Est Pt Level 4 (91746) Complex EM visit Add On G2211 Diagnoses Behcet disease with multisystem involvement M35.2 Other manager long term care (current) drug therapy Z79.899 Chronic pain of both knees M25.561; M25.562; G89.29 Chronicity: chronic Coffee ground emesis K92.0
[2024-12-31 10:49] VITALS: BP 110/80; PULSE 66; O2SAT 99; BMI 22.3
--- OUTSIDE RECORDS SUMMARY | 2024-12-31 21:10 | XMS_ITS | Clinical Summary ---
Author Organization [facility] Address [address] [place] [address] Care Team Providers Care Ornamental Rail Installer Name Role Phone Ana Cortez Primary Care Provider [phone] Allergies Active Allergy Reactions Criticality Noted Date [...] & Plan: Will be scheduled with [facility] GI. Saw Dr. Reyes who [...] Annual Screening 02/13/2024 Influenza Vaccine (#1) 2024 COVID-19 Vaccine ( - season) 2024 DTaP,Tdap,and Td Vaccines (2 - Td or Tdap) 10/12/2025 10/13/2015 Insurance [facility] [place] [address] [place] [address] Care Teams Ornamental Rail Installer Relationship Specialty Start Date End Date Ana Cortez [address] [place] [address] PCP - General 04/10/23
--- OUTSIDE RECORDS SUMMARY | 2024-12-31 21:10 | XMS_ITS | Encounter Summary ---
Author Organization [facility] Address [facility] [address] [place] [address] Phone Care Team Providers Care Payroll And Benefits Assistant Name Role Phone Glenny Dyson NP Primary Care Provider + Pcp, Unknown Primary Care Provider Unavailabl e Pcp, Unknown Primary Care Provider Unavailindiana e Jo Ann Hebert Primary Care Provide r Encounter Details Date Type Department Care Team (Late st Contact Info) Description 03/22/2022 Procedure Pass [facility], Ct Scan - [address] [address] Social History Tobacco Use Types Packs/Day Years [...] 2:47 AM EST Kevin Luo RN * [place] Suicide Severity Rating Scale (Screener/Recent Self-Report) Question [...] st Contact Info) Description 12/18/2024 Procedure Pass [facility] - [place] 32 [facility], [address] [place] [address] 12/30/2024 Procedure Pass [facility] General Imaging [address] [place] [address] 01/02/2025 3:00 PM EST Appointment [facility] [place] 32 [facility], [address] [place] [address] Natalee Dotson PA-C [address] [place] [address] Department [place] [address] [email or web address] documented as of this encounter Visit Diagnoses Not on filedocumented in this encounter Additional Health Concerns Assessment Noted Time PHQ-2 Depression Total Score: 1 04/17/19 20 1:38 PM EST documented as of this encounter Care Teams Payroll And Benefits Assistant Relationship Specialty Start Date End Date Glenny Dyson NP [address] [place] [address] PCP - General Nurse Practitioner 03/17/22 04/14/22 Pcp, Unknown PCP - General 04/15/22 04/11/23 Pcp, Unknown PCP - General 04/12/23 10/02/24 Jo Ann Hebert PA [address] [place] [address] [place] [address] PCP - General Physician Gasser Machine Operator 10/03/24 documented as of this encounter Additional Source Comments The information contained in this document represents components of the legal health record. It is not the complete legal health record.[facility]
--- OUTSIDE RECORDS SUMMARY | 2024-12-31 21:10 | XMS_ITS | Clinical Summary ---
Author Organization [facility] Address [facility] [address] [place] [address] Phone Care Team Providers Care Epic Willow Analyst Name Role Phone Jo Ann Hebert [...] 4 tablet, 0 Refills, Maintenance, 03/06/22 14:34:00 [id number], Partial fill upon patient request if the [...] Conservative therapy not effective. Patient noting decreased rand butter strength and progressive pain. -will refer to [...] 9:20 AM EDT): Will be scheduled with [facility] GI. Saw Dr. Reyes who recommended work [...] (04/20/2019 2:05 PM EDT): Possible GI vs [facility] etiology. S/p appendectomy-possible adhesion formation, endometriosis. -will obtain CT abdomen/pelvis. Has not had one since onset of pain -urgent referral to [facility] to discuss pain/recent u/s with possible retained [...] 2017. She would like referral to new clip wrapper given her recent bad experience with criss [...] Encounters Date Type Department Care Team Description 12/30/2024 Ancillary Orders [facility] Orthopedics [address] [address] Natalee Dotson PA-C Instability of right knee joint (Primary Dx) 12/18/2024 2:30 PM EST Office Visit [facility] Orthopedics [facility] [address] [place] [address] Cr Kidd MD Patellar instability of right knee (Primary Dx); Patellar instability of left knee; Instability of right knee joint 11/11/2024 2:00 PM EDT Office Visit [facility] Department of Orthopaedic Surgery, Sports Medicine Service [address] [place] [address], [address] [place] [address] Jeremiah Leal MD Patellar instability of right knee (Primary Dx); Chronic pain of right knee; Patellar instability of left knee; Old tear of meniscus of right knee, unspecified meniscus, unspecified tear type; EDS (Kings-Danlos syndrome); POTS (postural orthostatic tachycardia syndrome); Behcet's disease; Right foot drop 11/11/2024 1:30 PM EDT - 11/11/2024 11:59 PM EDT Hospital Encounter [facility] [place] [id number] Jeremiah Leal MD Discharge Disposition: Home or Self Care 11/11/2024 1:15 PM EDT - 11/11/2024 1:29 PM EDT Hospital Encounter [facility] [address] [address] Jeremiah Leal MD Discharge Disposition: Home or Self Care 11/11/2024 Ancillary Orders [facility] [address] [place] [address] Jeremiah Leal MD 11/11/2024 Ancillary Orders [facility] [address] [place] [address] Jeremiah Leal MD 11/11/2024 Ancillary Orders [facility] [address] [place] [address] Jeremiah Leal MD 11/10/2024 Orders Only [facility] Department of Orthopaedics [address] [place] [address] Jeremiah Leal MD Right knee pain, unspecified chronicity (Primary Dx); Left knee pain, unspecified chronicity 10/12/2024 - 10/12/2024 11:59 PM EDT Hospital Encounter [facility] [address] [place] [address] Jeremiah Leal MD Discharge Disposition: Home or [...] st Contact Info) Description 12/18/2024 Procedure Pass [facility] [place] 32 [facility], [address] [place] [address] 12/30/2024 Procedure Pass [facility] General Imaging [address] [place] [address] 01/02/2025 3:00 PM EST Appointment [facility] - [place] 32 [facility], [address] [place] [address] Natalee Dotson PA-C [address] [place] [address] Department [place] [address] [email or web address] Due Date Last Done Comments [...] change. Moderate effusion. Procedure [facility] XR KNEE 3 VIEW (RIGHT), [...] clinician's provided indication for this examination in [facility]: Pain COMPARISON: None available. FINDINGS: Left knee: No fracture. Normal alignment. Normal joint spaces. No effusion. Right knee: No fracture. Normal alignment. Minimal patellofemoral joint degenerative change. Moderate effusion. Procedure Note [facility]11[facility]2024 XR KNEE 3 VIEW (RIGHT), XR KNEE 1-2 VIEWS (LEFT) Referring clinician's provided indication for this examination in [facility]:Pain COMPARISON: None available. FINDINGS: Left knee: No [...] (No Interpretation) (10/12/2024 12:00 AM EDT) Narrative [facility] IMG INTERFACES - 11/11/2024 2:42 PM EDT This study is for PACS storage only and not for interpretation. Jeremiah Leal MD IMG OUTSIDE IMAGING W/OUT INTE RPRETATION Final Result [facility] IMG INTERFACES from Last 3 Months Insurance [facility] [place] [address] [place] [address] [place] [address] [place] [address] [place] [address] [place] [address] ACO [facility] ACO [facility] ACO Care Teams Epic Willow Analyst Relationship Specialty Start Date End Date Jo Ann Hebert PA [address] [place] [address] [place] [address] PCP - General Physician Volcanology Professor 10/03/24 Additional Source Comments The information contained in this document represents components of the legal health record. It is not the complete legal health record.[facility]
--- OUTSIDE RECORDS SUMMARY | 2024-12-31 21:10 | XMS_ITS | Clinical Summary ---
Author Organization [facility] Address [address] [place] [address] Care Team Providers Care Sourcing Specialist Name Role Phone Ana Cortez NP Primary Care Provider [phone] Allergies Active Allergy Reactions Criticality Noted Date [...] age to complete this topic Care Teams Sourcing Specialist Relationship Specialty Start Date End Date Ana Cortez NP [address] [address] PCP - General Family Medicine 09/21/22
--- OUTSIDE RECORDS SUMMARY | 2024-12-31 21:10 | XMS_ITS | Encounter Summary ---
Author Organization [facility] Address [facility] [employer] [address] [place] [address] Phone Care Team Providers Care Quality Auditor Name Role Phone Pcp, Unknown Primary Care Provider Unavailabl e Pcp, Unknown Primary Care Provider Unavailabl e Jo Ann Hebert Primary Care Provide r Encounter Details Date Type Department Care Team (Late st Contact Info) Description 04/15/2022 Procedure Pass [facility], Ct Scan - [address] [address] Social History Tobacco Use Types Packs/Day Years [...] 04/15/2022 7:37 PM Glenny Brothers RN * [place] Suicide Severity Rating Scale (Screener/Recent Self-Report) Question [...] st Contact Info) Description 12/18/2024 Procedure Pass [facility] - [place] [address] [facility], [address] [place] [address] 12/30/[address] [facility] Imaging [address] [place] [address] 01/02/2025 3:00 PM EST Appointment [facility] [place] [address] [facility], [address] [place] [address] Natalee Dotson PA-C [address] [place] [address] Department [place] [address] [email or web address] documented as of this encounter Visit Diagnoses Not on filedocumented in this encounter Additional Health Concerns Assessment Noted Time PHQ-2 Depression Total Score: 1 04/17/19 20 1:38 PM EST documented as of this encounter Care Teams Quality Auditor Relationship Specialty Start Date End Date Pcp, Unknown PCP - General 04/15/22 04/11/23 Pcp, Unknown PCP - General 04/12/23 10/02/24 Jo Ann Hebert PA [address] [place] [address] Dr [address] [place] [address] PCP - General Physician Monitor And Storage Bin Tender 10/03/24 documented as of this encounter Additional Source Comments The information contained in this document represents components of the legal health record. It is not the complete legal health record.[facility]
--- OUTSIDE RECORDS SUMMARY | 2024-12-31 21:10 | XMS_ITS | Encounter Summary ---
Author Organization [facility] Address [address] [place] [address] Phone Care Team Providers Care Associate Professor Physician Name Role Phone Pcp, Unknown Primary Care Provider Jo Ann Mg Primary Care Provide r Encounter Details Date Type Department Care Team (Late st Contact Info) Description 04/12/2023 Procedure Pass [facility], Ct Scan - [facility] [address] [place] [address] Social History Tobacco Use Types Packs/Day Years [...] 9:23 PM EST Lucille Lara RN * Lee Suicide Severity Rating Scale (Screener/Recent Self-Report) Question [...] st Contact Info) Description 12/18/2024 Procedure Pass [facility] - [place] [address] [address] 12/30/2024 Procedure [facility] [address] [place] [address] 01/02/2025 3:00 PM EST Appointment [facility] - [place] 32 [facility], [address] [place] [address] Natalee Dotson PA-C [address] [place] [address] Department [place] [address] [email or web address] documented as of this encounter Visit Diagnoses Not on filedocumented in this encounter Additional Health Concerns Assessment Noted Time PHQ-2 Depression Total Score: 1 04/17/19 20 1:38 PM EST documented as of this encounter Care Teams Associate Professor Physician Relationship Specialty Start Date End Date Pcp, Unknown PCP - General 04/12/23 10/02/24 Jo Ann Hebert PA [address] [place] [address] [place] [address] PCP - General Physician Director Of Pupil Personnel Program 10/03/24 documented as of this encounter Additional Source Comments The information contained in this document represents components of the legal health record. It is not the complete legal health record.[facility]
--- OUTSIDE RECORDS SUMMARY | 2024-12-31 21:11 | XMS_ITS | Clinical Summary ---
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 Abdominal pannus 08/27/2024 [...] AM EDT Office Visit [facility] [address] [address] [place] Status post panniculectomy (Primary Dx); Aftercare following surgery of the skin or subcutaneous tissue 12/04/2024 1:07 PM EDT - 12/04/2024 11:59 PM EDT Hospital Encounter [facility] Ultrasound [address] [place] [address] Status post panniculectomy; Abdominal wall seroma, sequela Discharge Disposition: Home or Self Care 11/24/2024 11:30 AM EDT Office Visit [facility] [address] [address] [place] PA Abdominal wall seroma, sequela (Primary Dx); Status post panniculectomy 11/18/2024 10:30 AM EDT Office Visit [facility] [address] [address] Sierra Isidro PA Status post panniculectomy (Primary Dx) 11/03/2024 9:00 AM EDT Office Visit [facility] [address] [address] Sierra Isidro PA Status post panniculectomy (Primary Dx) 10/30/2024 1:00 PM EDT Office Visit [facility] [address] [address] Sierra Isidro PA Status post panniculectomy (Primary Dx) 10/27/2024 1:30 PM EDT Office Visit [facility] [address] [address] Sierra Isidro PA Status post panniculectomy (Primary Dx) 10/27/2024 Telephone Plastic & Reconstructive Surgery [facility] [address] [address] Gail Chavez [place] 10/23/2024 1:30 PM EDT Office Visit Plastic & Reconstructive Surgery [facility] 300 [facility] [address] [place] [address] Sierra Isidro PA Status post panniculectomy (Primary Dx); Abdominal pannus 10/16/2024 7:39 AM EDT Anesthesia Event [facility] Main OR [address] [place] [phone] Tenzin Angulo DO 10/16/2024 7:30 AM EDT - 10/16/2024 11:00 AM EDT Surgery [facility] OR [address] [place] [phone] Arturo Albarran DO PANNICULECTOMY [60104 (CPT )] 10/16/2024 6:15 AM EDT - 10/16/2024 2:26 PM EDT Hospital Encounter [facility] OR [address] [place] [phone] Arturo Albarran DO Abdominal pannus; Abrasion of labia minora, sequela; Erythema intertrigo Discharge Disposition: Home or Self Care 10/06/2024 11:00 AM EDT Consult Plastic & Reconstructive Surgery [facility] 300 [facility] [address] [place] [address] Arturo Albarran DO Abdominal pannus (Primary Dx) 09/30/[address] [facility] 175 [facility] [address] [place] [phone] Arturo Albarran DO from Last 3 Months Immunizations Immunization Administration Dates Next Due Tdap Tetanus diptheria acell ular pertussis (Boostrix; Adacel) 7yo and older 10/13/2015 Surgical History Surgery Date Site/Laterality Comments TONSILLECTOMY PROCEDURE: HISTORICAL TONSILLECTOMY OTHER SURGICAL HISTORY PROCEDURE: REMOVAL OF TMJ CONDYLE APPENDECTOMY PROCEDURE: HISTORICAL APPENDECTOMY ESOPHAGOGASTRODUODENOSCOPY 03/29/15 PROCEDURE: NH EGD TRANSORAL BIOPSY SINGLE/MULTIPLE; COMMENT: mild distal [...] Office Visit [facility] [address] [place] [address] Sierra Isidro PA [address] [place] [phone] Health Maintenance Due Date Last Done [...] ENDOTRACHEAL(NO CHARGE) Routine 10/16/2024 8:08 AM EDT [place] EXCISION EXCESSIVE SKIN/SUBCUTANEOUS TISSUE OTHER AREA 10/16/2024 7:39 AM EDT Abdominal pannus Erythema intertrigo Special Needs 2HRS WITH 30 MIN CLEAN NH EXCISION EXCESSIVE SKIN SUBQ TISSUE ABD INFRAUMBILICAL [...] Signed Date: 12/04/2024 14:36 ET Workstation ID: [id number] Transcribed By: Self Edit Transcribed Date: 12/04/2024 [...] LIDOCAINE was used for local anesthesia. A 5-Tamazight Techtiumeh catheter was advanced under continuous ultrasound guidance [...] 1% LIDOCAINE was usedfor local anesthesia. A 5-Tamazight SnappyTV catheter was advanced undercontinuous ultrasound guidance into [...] Signed Date: 12/04/2024 14:36 ET Workstation ID: [id number] Transcribed By: Self Edit Transcribed Date: 12/04/2024 14:35 ET us Sierra HUYNH US PROCEDURES Final Result * Culture wound deep (11/24/2024 11:35 AM EDT) Only the most recent of2 resultswithin the time period is included. Culture, Wound No growth at 3 days 11/27/2024 8:26 AM EDT [facility] Gram Stain Result No polymorphonuclear leukocytes, No epithelial cells, and No organisms noted 11/27/2024 8:26 AM EDT [facility] Swab Structure of abdominopelvic wall / Unknown Non-blood Collection / Unknown 11/24/2024 11:35 AM EDT 11/24/2024 11:35 AM EDT New [facility] LAB MICROBIOLOGY - GENERAL OR DERABLES Final Result [facility] [address] [place] [address], [place] [phone] * Tissue exam (10/16/2024 9:46 AM EDT) Final Diagnosis Vulva, right labia minora, labiaplasty: Benign squamous epithelial-lined tissue without hair follicles, consistent with labium minus No significant pathologic change identified 10/17/2024 10:57 AM EDT [facility] Gross Description A. Vulva, right labia minora skin: Labeled vagina, right lab . Received in formalin is a 4.4 x 1.7 x 0.8 cm irregular wells-white rubbery portion of skin and subcutaneous tissue. The cut surfaces are wells-white and edematous. No mass lesions are appreciated. Transportation Lead sections are submitted in one cassette, two pieces. LEONA 10/17/2024 10:57 AM EDT [facility] Disclaimer Unless otherwise specified, all tissue is 10% NB formalin fixed and paraffin embedded. 10/17/2024 10:57 AM EDT [facility] Tissue Vulval structure / Unknown 10/16/2024 9:46 AM EDT 10/16/2024 12:21 PM EDT Arturo Albarran DO LAB PATHOLOGY ORDERABLES Fin al Result [facility] [address] [place] [address], * TH AN ENDOTRACHEAL(NO CHARGE) (10/16/2024 8:08 AM EDT) Tenzin Rodriguez DO - 10/16/2024 8:08 AM EDT Tenzin Angulo DO 10/17/2024 8:20 AM General Information and Staff Patient location during procedure: OR Anesthesiologist: Tenzin Angulo DO Resident/PHOTOENGRAVING PRINTER: Brooks Mello CRNA Performed: resident/PHOTOENGRAVING PRINTER/CAA Performed by: Brooks Mello CRNA Authorized by: [...] LAB COAGULATION METHOD 10/16/2024 7:09 AM EDT [facility] Blood Venous blood specimen / Unknown Venipuncture / Unknown 10/16/2024 6:44 AM EDT 10/16/2024 6:51 AM EDT Arturo Albarran DO LAB BLOOD ORDERABLES Final R esult [facility] [address] [place] [address], [place] [phone] * Prothrombin time with INR (10/16/2024 6:44 AM EDT) Protime 11.7 10.6 - 13.9 sec LAB COAGULATION METHOD 10/16/2024 7:09 AM EDT [facility] INR 0.9 LAB COAGULATION METHOD 10/16/2024 7:09 AM EDT [facility] Blood Venous blood specimen / Unknown Venipuncture / Unknown 10/16/2024 6:44 AM EDT 10/16/2024 6:51 AM EDT us Arturo Albarran DO LAB BLOOD ORDERABLES Final R esult [facility] [address] [place] [address], [place] [phone] * BMP (10/16/2024 6:44 AM EDT) Sodium 140 133 - 145 mmol/L LAB CHEMISTRY METHOD 10/16/2024 7:14 AM [facility] Potassium 4.1 3.5 - 5.5 mmol/L LAB CHEMISTRY METHOD 10/16/2024 7:14 AM [facility] Chloride 105 96 - 110 mmol/L LAB CHEMISTRY METHOD 10/16/2024 7:14 AM [facility] CO2 31 21 - 32 mmol/L LAB CHEMISTRY METHOD 10/16/2024 7:14 AM [facility] Anion Gap 4 3 - 11 LAB CHEMISTRY METHOD 10/16/2024 7:14 AM [facility] Glucose 78 70 - 100 mg/dL LAB CHEMISTRY METHOD 10/16/2024 7:14 AM [facility] BUN 11 5 - 25 mg/dL LAB CHEMISTRY METHOD 10/16/2024 7:14 AM [facility] Creatinine 0.69 0.50 - 1.10 mg/dL LAB CHEMISTRY METHOD 10/16/2024 7:14 AM [facility] eGFR 116 >=60 mL/min/1. 73m2 LAB CHEMISTRY METHOD 10/16/2024 7:14 AM [facility] Comment:Calculation based on the Chronic Kidney Disease Epidemiology Collaboration (CKD-EPI) equation refit without adjustment for race. BUN/Creatinine Ratio 15.9 LAB CHEMISTRY METHOD 10/16/2024 7:14 AM EDT [facility] Calcium 9.3 8.5 - 10.5 mg/dL LAB CHEMISTRY METHOD 10/16/2024 7:14 AM EDT [facility] Blood Venous blood specimen / Unknown Venipuncture / Unknown 10/16/2024 6:44 AM EDT 10/16/2024 6:51 AM EDT Arturo Albarran DO LAB BLOOD ORDERABLES Final R esult [facility] [address] [place] [address], [place] [phone] * (ABNORMAL) Lipid panel (04/18/2018) LDL/HDL Ratio 4 0 - 4 Triglycerides 97 0 - 150 mg/dL Cholesterol 179 0 - 200 mg/dL HDL 42 >=40 mg/dL LDL Cholesterol 118(A) 0 - 100 mg/dL Blood Venous blood specimen / Unknown Historical Provider LAB BLOOD ORDERABLES Candis l Result * Hm HIV Screening (06/14/2017) Pathologist [facility] HIV Screening abstracted Historical Provider HEALTH MAINTENANCE Final Result * Pap smear (06/13/2017) 06/13/2017 Narrative HISTORICAL TESTING LAB RESULTING AGENCY - 06/20/2017 4:55 PM EDT [id number] THINPREP PAP, IMAGED AND CELL BLOCK: NEGATIVE [...] Most Recently Relevant to Health Maintenance Insurance [facility] APROOFED PLAN Advance Directives * Full Code - [...] currently active code status orders. Care Teams Supervisor Gate Services Relationship Specialty Start Date End Date Jo Ann Hebert PA [address] [place] [address], [address] [place], [place] [phone] PCP - General 08/25/24
--- OUTSIDE RECORDS SUMMARY | 2024-12-31 21:11 | XMS_ITS | Encounter Summary ---
Author Organization [facility] Address [facility] [address] [place] [address] Phone Care Team Providers Care Passenger Relations Representative Name Role Phone Glenny Dyson NP Primary Care Provider + Pcp, Unknown Primary Care Provider Unavailabl e Pcp, Unknown Primary Care Provider Unavailabl e Jo Ann Hebert Primary Care Provide r Encounter Details Date Type Department Care Team (Late st Contact Info) Description 03/17/2022 Procedure Pass [facility] Admitting Dept Virtual Department [address] [place] [address] Social History Tobacco Use Types Packs/Day Years [...] st Contact Info) Description 12/18/2024 Procedure Pass [facility] - CT [address] [facility], 6th [place] [address] 12/30/2024 Procedure Pass [facility] [address] [place] [address] 01/02/2025 3:00 PM EST Appointment [facility] for [facility] - [place] 32 [facility], 6th [place] [address] Natalee Dotson PA-C [address] [place] [address] Department [place] [address] [email or web address] documented as of this encounter Visit Diagnoses Not on filedocumented in this encounter Additional Health Concerns Assessment Noted Time PHQ-2 Depression Total Score: 1 04/17/19 20 1:38 PM EST documented as of this encounter Care Teams Passenger Relations Representative Relationship Specialty Start Date End Date Glenny Dysno NP [address] [place] [address] PCP - General Nurse Practitioner 03/17/22 04/14/22 Pcp, Unknown PCP - General 04/15/22 04/11/23 Pcp, Unknown PCP - General 04/12/23 10/02/24 Jo Ann Hebert PA [address] [place] [address] [place] [address] PCP - General Physician Seo Manager 10/03/24 documented as of this encounter Additional Source Comments The information contained in this document represents components of the legal health record. It is not the complete legal health record.[facility]
--- OUTSIDE RECORDS SUMMARY | 2024-12-31 21:11 | XMS_ITS | Encounter Summary ---
Author Organization [facility] Address [facility] [address] [place] [address] Phone Care Team Providers Care Program Director/Traffic Director Name Role Phone Nilda Watson Unavailable [phone] Octavio Castillo MD Primary Care Provider [phone] Octavio Castillo MD Unavailable [phone] Maryam Wu MD Primary Care Provid er Glenny Dyson NP Primary Care Provider + Juan F Gallo MD Primary Care Provider + Glenny Dyson LINUX DEVOPS ENGINEER Primary Care Provider + Pcp, Unknown Primary Care Provider Unavailabl e Pcp, Unknown Primary Care Provider Unavailabl e Jo Ann Hebert Primary Care Provide r Encounter Details Date Type Department Care Team (Late st Contact Info) Description 04/26/2020 Ancillary Orders Virtual Department [address] [place] [address] [address] [id number] [email or web address] Social History Tobacco Use Types [...] st Contact Info) Description 12/18/2024 Procedure Pass [facility] - [place] [address] [facility], [address] [place] [address] 12/30/2024 Procedure Pass [facility] General Imaging [address] [place] [address] 01/02/2025 3:00 PM EST Appointment [facility] - [place] 32 [facility], [address] [place] [address] Natalee Dotson PA-C [address] [place] [address] Department [place] [address] [email or web address] documented as of this encounter Results [...] indicated for this reason. us Falguni Valerio CNM IMG US ABDOMEN Final Resu [...] documented as of this encounter Care Teams Program Director/Traffic Director Relationship Specialty Start Date End Date Nilda Watson PA [address] [place] [address] [email or web address] PCP - Resident PCP 04/11/19 07/14/21 Octavio Castillo MD [address] [place] [address], [address] [place] [address] [email or web address] PCP - General Internal Medicine 07/10/19 07/14/21 Maryam Wu MD [address] [place] [address] [place] [address] [email or web address] PCP - General Family Medicine 07/15/21 03/05/22 Glenny Dyson, INGRIS [address] [place] [address] PCP - General Nurse Practitioner 03/06/22 03/15/22 Juan F Gallo MD [address] [place] [address] PCP - General Internal Medicine 03/16/22 03/16/22 Glenny Dyson NP [address] [place] [address] PCP - General Nurse Practitioner 03/17/22 04/14/22 Pcp, Unknown PCP - General 04/15/22 04/11/23 Pcp, Unknown PCP - General 04/12/23 10/02/24 Jo Ann Hebert PA [address] [place] [address] [place] [address] PCP - General Physician Spray Technician 10/03/24 Octavio Castillo MD [address] [place] [address], [address] [place] [address] [email or web address] Insurance Assigned Provider 08/18/19 11/20/20 documented as of this encounter Additional Source Comments The information contained in this document represents components of the legal health record. It is not the complete legal health record.[facility]
--- OUTSIDE RECORDS SUMMARY | 2024-12-31 21:11 | XMS_ITS | Encounter Summary ---
Author Organization [facility] Address [facility] [address] [place] [address] Phone Care Team Providers Care Packaging Machine Operator Name Role Phone Jo Ann Hebert Primary Care Provide r Reason for Referral * MRI/CAT Scan - Authorized Specialty Diagnoses / Procedures Referred By Rob salamanca Referred To Contact Radiology Diagnoses Instability of right knee joint Procedures CT 3D Reconstruction Knee CHG 3D RENDERING W/INTERP&POSTPROC DIFF WORK STATION Natalee Dotson PA-C [address] [place] [address] Department [place] [address] Phone: tel: fax: [email or web address] Referral ID Status Reason Start Date Expiration Date V isits Requested Visits Authorized [id number] Authorized 12/24/2024 02/22/2025 1 1 Encounter Details Date Type Department Care Team (Late st Contact Info) Description 12/30/2024 Ancillary Orders [facility] Orthopedics [facility] [address] [place] [address] Natalee Dotson PA-C [address] [place] [address] Department [place] [address] [email or web address] Instability of right knee joint (Primary Dx) Social History Tobacco Use Types [...] Center for Outpatient Care - [place] 32 [facility], [address] [place] [address] 12/30/2024 Procedure Pass [facility] General Imaging [address] [place] [address] 01/02/2025 3:00 PM EST Appointment [facility] - CT [address] [facility], [address] [place] [address] Natalee Dotson PA-C [address] [place] [address] Department [place] [address] [email or web address] Scheduled Orders Name Type Priority Associated Diagnoses Orde r Schedule CT 3D Reconstruction Knee Imaging Routine Instability of right knee joint Expected: 12/30/2024, Expires: 04/01/2025 documented as of this encounter Visit Diagnoses Diagnosis Instability of right knee joint- Primary documented in this encounter Additional Health Concerns Assessment Noted Time PHQ-2 Depression Total Score: 1 04/17/19 20 1:38 PM EST documented as of this encounter Care Teams Packaging Machine Operator Relationship Specialty Start Date End Date Jo Ann Hebert PA [address] [place] [address] Dr [place] [address] [place] [id number] PCP - General Physician Atv Mechanic 10/03/24 documented as of this encounter Additional Source Comments The information contained in this document represents components of the legal health record. It is not the complete legal health record.[facility]
--- OUTSIDE RECORDS SUMMARY | 2024-12-31 21:11 | XMS_ITS | Encounter Summary ---
Author Organization [facility] Address [address] [place] [address] Care Team Providers Care Centrifuge Operator Name Role Phone Ana Cortez Primary Care Provider [phone] Encounter Details Date Type Department Care Team (Late st Contact Info) Description 08/11/2022 Orders Only [facility] [address] [place] [address] Brenda Willard, DO [address] [place], [place] [phone] Social History Tobacco Use Types Packs/Day Years [...] on filedocumented in this encounter Care Teams Centrifuge Operator Relationship Specialty Start Date End Date Ana Cortez [address] [place] [address] PCP - General 04/10/23 documented as of this encounter
== END 2024-12-31 11:49 | disposition home or self-care (01) ==
LOC: HO.RHES 10:46
PROVIDERS: Visit Provider Internal Medicine Rheumatology
DX: M35.2 Behcet's disease (principal); Z79.899 Other long term (current) drug therapy; M25.561 Pain in right knee; M25.562 Pain in left knee; G89.29 Other chronic pain; K92.0 Hematemesis
CPT/HCPCS: 99214

== ENCOUNTER → 2024-12-31 10:45 | Outpatient (BNVA) | payer OTHER, SELFPAY | PROVIDERS: Visit Provider Internal Medicine Rheumatology | DX: M35.2 Behcet's disease (principal); M25.561 Pain in right knee; M25.562 Pain in left knee; G89.29 Other chronic pain; K92.0 Hematemesis; Z79.899 Other long term (current) drug therapy | CPT/HCPCS: 99212 ==

== ENCOUNTER 2025-01-02 15:59 | Outpatient (REF) | payer OTHER, SELFPAY ==
--- OUTSIDE RECORDS SUMMARY | 2025-01-02 16:02 | XMS_ITS | Clinical Summary ---
Author Organization [facility] Address [facility] [address] [place] [address] Phone Care Team Providers Care Security Coordinator Name Role Phone Jo Ann Hebert Primary [...] 4 tablet, 0 Refills, Maintenance, 03/06/22 14:34:00 [id number], Partial fill upon patient request if the [...] Conservative therapy not effective. 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 -will refer to [...] 9:20 AM EDT): Will be scheduled with [facility] GI. Saw Dr. Reyes who recommended [...] (04/20/2019 2:05 PM EDT): Possible GI vs KENO CLERK etiology. S/p appendectomy-possible adhesion formation, endometriosis. -will obtain CT abdomen/pelvis. Has not had one since onset of pain -urgent referral to KENO CLERK to discuss pain/recent u/s with possible retained [...] 2017. She would like referral to new rest room maid given her recent bad experience with criss [...] Department Care Team Description 12/30/2024 Ancillary Orders [facility] Orthopedics [address] [address] Natalee Dotson PA-C Instability of right knee joint (Primary Dx) 12/18/2024 2:30 PM EST Office Visit [facility] Orthopedics [facility] [address] [place] [address] Cr Kidd MD Patellar instability of right knee (Primary Dx); Patellar instability of left knee; Instability of right knee joint 11/11/2024 2:00 PM EDT Office Visit [facility] [place] [place] Department of Orthopaedic Surgery, Sports Medicine Service [address] [place] [address], [address] [place] [address] Jeremiah Leal MD Patellar instability of right knee (Primary Dx); Chronic pain of right knee; Patellar instability of left knee; Old tear of meniscus of right knee, unspecified meniscus, unspecified tear type; EDS (Kings-Danlos syndrome); POTS (postural orthostatic tachycardia syndrome); Behcet's disease; Right foot drop 11/11/2024 1:30 PM EDT - 11/11/2024 11:59 PM EDT Hospital Encounter [facility] [place] [id number] Jeremiah Leal MD Discharge Disposition: Home or Self Care 11/11/2024 1:15 PM EDT - 11/11/2024 1:29 PM EDT Hospital Encounter [facility] [address] [address] Jeremiah Leal MD Discharge Disposition: Home or Self Care 11/11/2024 Ancillary Orders [facility] [address] [place] [address] Jeremiah Leal MD 11/11/2024 Ancillary Orders [facility] [address] [place] [address] Jeremiah Leal MD 11/11/2024 Ancillary Orders [facility] [address] [place] [address] Jeremiah Leal MD 11/10/2024 Orders Only [facility] Department of Orthopaedics [address] [place] [address] Jeremiah Leal MD Right knee pain, unspecified chronicity (Primary Dx); Left knee pain, unspecified chronicity 10/12/2024 - 10/12/2024 11:59 PM EDT Hospital Encounter [facility] [address] [place] [address] Jeremiah Leal MD Discharge Disposition: Home or [...] 12/18/2024 2:36 PM EST Plan of Treatment Health Maintenance [...] if necessary edited the report originallycreated by Mdeina Dickens. us Jeremiah Leal MD IMG XR [...] change. Moderate effusion. Procedure [facility]11/2024 XR KNEE 3 VIEW [...] if necessary edited the report originallycreated by Median Dickens. us Jeremiah Leal MD IMG XR LOWER EXTREMITY Final R esult * MRI Spine (Bone) Outside (No Interpretation) (10/12/2024 12:00 AM EDT) Narrative [facility] [place] [place] IMG INTERFACES - 11/11/2024 2:42 PM EDT This study is for PACS storage only and not for interpretation. us Jeremiah Leal MD IMG OUTSIDE IMAGING W/OUT INTE RPRETATION Final Result [facility] INTERFACES from Last [address] [place] [address] [place] [address] [place] [address] [place] [address] [place] [address] [place] [address] A[place] [facility] A[facility] Care Teams Security Coordinator Relationship Specialty Start Date End Date Jo Ann Hebert PA [address] [place] [address] [place] [address] PCP - General Physician Data Processing Clerk 10/03/24 Additional Source Comments The information contained in this document represents components of the legal health record. It is not the complete legal health record.[facility]
--- OUTSIDE RECORDS SUMMARY | 2025-01-02 16:02 | XMS_ITS | Encounter Summary ---
Author Organization [facility] Address [address] [employer] [address] [place] [address] Phone Care Team Providers Care Sales Operations Director Name Role Phone Pcp, Unknown Primary Care Provider Jo Ann Mg Primary Care Provide r Encounter Details Date Type Department Care Team (Late st Contact Info) Description 04/12/2023 Procedure Pass [facility], Ct Scan - [facility] [address] [place] [address] Social History Tobacco Use Types Packs/Day Years [...] 04/12/2023 9:23 PM Lucille Shah RN * [place] Suicide Severity Rating Scale (Screener/Recent Self-Report) Question Answer Date of Assessment Author 1. Wish to be (Past 1 Month) No 024 9:23 PM Lucille Leung, DELORIS 2. Non-Specific Active Suici antonette Thoughts (Past 1 Month) No 04/12/2023 9:23 PM Jaime Leung, DELORIS 6. Suicidal Behavior (Lifetime) No 4 9:23 PM Lucille Leung RN documented as of this encounter Plan of Treatment Not on file documented as of this encounter Visit Diagnoses Not on filedocumented in this encounter Additional Health Concerns Assessment Noted Time PHQ-2 Depression Total Score: 1 04/17/19 20 1:38 PM EST documented as of this encounter Care Teams Sales Operations Director Relationship Specialty Start Date End Date Pcp, Unknown PCP - General 04/12/23 10/02/24 Jo Ann Hebert PA [address] [place] [address] Dr Dennis [address] [place] [address] PCP - General Physician Blood Bank Specialist 10/03/24 documented as of this encounter Additional Source Comments The information contained in this document represents components of the legal health record. It is not the complete legal health record.[facility]
--- OUTSIDE RECORDS SUMMARY | 2025-01-02 16:02 | XMS_ITS | Clinical Summary ---
Author Organization [facility] Address [address] [place] [address] Care Team Providers Care Realty Loan Specialist Name Role Phone Ana Cortez Primary Care Provider [phone] Allergies Active Allergy Reactions Criticality Noted Date [...] Assessment & Plan: Will be scheduled with [facility] GI. Saw Dr. Reyes who [...] - Td or Tdap) 10/12/2025 10/13/2015 Insurance [facility] [place] [address] [employer] Care Teams Realty Loan Specialist Relationship Specialty Start Date End Date Ana Cortez [address] [place] [address] PCP - General 04/10/23
--- OUTSIDE RECORDS SUMMARY | 2025-01-02 16:02 | XMS_ITS | Clinical Summary ---
Author Organization [facility] Address [address] [place] [address] Care Team Providers Care Binder Chainstitch Name Role Phone Ana Cortez NP Primary Care Provider [phone] Allergies Active Allergy Reactions Criticality Noted Date [...] age to complete this topic Care Teams Binder Chainstitch Relationship Specialty Start Date End Date Ana Cortez NP [address] [address] PCP - General Family Medicine 09/21/22
--- OUTSIDE RECORDS SUMMARY | 2025-01-02 16:03 | XMS_ITS | Encounter Summary ---
Author Organization [facility] Address [facility] [address] [place] [address] Phone Care Team Providers Care Optical Store Manager Name Role Phone Glenny Dyson NP Primary Care Provider + Pcp, Unknown Primary Care Provider Unavailabl e Pcp, Unknown Primary Care Provider Unavailabl e Jo Ann Hebert Primary Care Provide r Encounter Details Date Type Department Care Team (Late st Contact Info) Description 03/17/2022 Procedure Pass [facility] Admitting Dept Virtual Department [address] [place] [address] Social History Tobacco Use Types Packs/Day Years [...] documented as of this encounter Care Teams Optical Store Manager Relationship Specialty Start Date End Date Glenny Dyson NP [address] [place] [address] PCP - General Nurse Practitioner 03/17/22 04/14/22 Pcp, Unknown PCP - General 04/15/22 04/11/23 Pcp, Unknown PCP - General 04/12/23 10/02/24 Jo Ann Hebert PA [address] [facility] [place] [address] PCP - General Physician Sheet Fed Printer 10/03/24 documented as of this encounter Additional Source Comments The information contained in this document represents components of the legal health record. It is not the complete legal health record.[facility]
--- OUTSIDE RECORDS SUMMARY | 2025-01-02 16:03 | XMS_ITS | Encounter Summary ---
Author Organization [facility] Address [facility] [employer] [address] [place] [address] Phone Care Team Providers Care Cast Iron Dipper Name Role Phone Glenny Dyson NP Primary Care Provider + Pcp, Unknown Primary Care Provider Unavailabl e Pcp, Unknown Primary Care Provider Unavailindiana e Jo Ann Hebert Primary Care Provide r Encounter Details Date Type Department Care Team (Late st Contact Info) Description 03/22/2022 Procedure Pass [facility], Ct Scan - [address] [address] Social History Tobacco Use Types Packs/Day Years [...] 2:47 AM EST Kevin Luo RN * [place] Suicide Severity Rating Scale (Screener/Recent Self-Report) Question [...] documented as of this encounter Care Teams Cast Iron Dipper Relationship Specialty Start Date End Date Glenny Dyson NP [address] [place] [address] PCP - General Nurse Practitioner 03/17/22 04/14/22 Pcp, Unknown PCP - General 04/15/22 04/11/23 Pcp, Unknown PCP - General 04/12/23 10/02/24 Jo Ann Hebert PA [address] [place] [address] PCP - General Physician Video Games Storywriter 10/03/24 documented as of this encounter Additional Source Comments The information contained in this document represents components of the legal health record. It is not the complete legal health record.[facility]
--- OUTSIDE RECORDS SUMMARY | 2025-01-02 16:03 | XMS_ITS | Encounter Summary ---
Author Organization [facility] Address [facility] [address] [place] [address] Phone Care Team Providers Care Receiving Associate Store Name Role Phone Jo Ann Hebert Primary Care Provide r Reason for Referral * MRI/CAT Scan - Authorized Specialty Diagnoses / Procedures Referred By Rob salamanca Referred To Contact Radiology Diagnoses Instability of right knee joint Procedures CT 3D Reconstruction Knee CHG 3D RENDERING W/INTERP&POSTPROC DIFF WORK STATION Natalee Dotson PA-C [address] [place] [address] Department [place] [address] Phone: tel: fax: [email or web address] Referral ID Status Reason Start Date Expiration Date V isits Requested Visits Authorized [id number] Authorized 12/24/2024 02/22/2025 1 1 Encounter Details Date Type Department Care Team (Late st Contact Info) Description 12/30/2024 Ancillary Orders [facility] Orthopedics [facility] [address] [place] [address] Natalee Dotson PA-C [address] [place] [address] Department [place] [address] [email or web address] Instability of right knee joint (Primary Dx) [...] as of this encounter Plan of Treatment Scheduled Orders Name Type Priority Associated Diagnoses [...] documented as of this encounter Care Teams Receiving Associate Store Relationship Specialty Start Date End Date Jo Ann Hebert PA [address] [place] [address] Dr [place] [phone] PCP - General Physician Weigher Bulker 10/03/24 documented as of this encounter Additional Source Comments The information contained in this document represents components of the legal health record. It is not the complete legal health record.[facility]
--- OUTSIDE RECORDS SUMMARY | 2025-01-02 16:03 | XMS_ITS | Encounter Summary ---
Author Organization [facility] Address [facility] [employer] [address] [place] [address] Phone Care Team Providers Care Under Cutting Machine Operator Name Role Phone Pcp, Unknown Primary Care Provider Unavailabl e Pcp, Unknown Primary Care Provider Unavailabl e Jo Ann Hebert Primary Care Provide r Encounter Details Date Type Department Care Team (Late st Contact Info) Description 04/15/2022 Procedure Pass [facility], Ct Scan - [address] [address] Social History Tobacco Use Types Packs/Day Years [...] 04/15/2022 7:37 PM Glenny Brothers RN * [place] Suicide Severity Rating Scale (Screener/Recent Self-Report) Question Answer Date of Assessment Author 1. Wish to be (Past 1 Month) No 04/15/2022 7:37 PM Glenny Brothers RN 2. Non-Specific Active Suici antonette Thoughts (Past 1 Month) No 04/15/2022 7:37 PM EST Pham Francisco RN 6. Suicidal Behavior (Lifetime) No 3 7:37 PM EST Glenny Francisco RN documented as of this encounter Plan of Treatment Not on file documented as of this encounter Visit Diagnoses Not on filedocumented in this encounter Additional Health Concerns Assessment Noted Time PHQ-2 Depression Total Score: 1 04/17/19 20 1:38 PM EST documented as of this encounter Care Teams Under Cutting Machine Operator Relationship Specialty Start Date End Date Pcp, Unknown PCP - General 04/15/22 04/11/23 Pcp, Unknown PCP - General 04/12/23 10/02/24 Jo Ann Hebert PA [address] [place] [address] [place] [address] PCP - General Physician Water Filterer 10/03/24 documented as of this encounter Additional Source Comments The information contained in this document represents components of the legal health record. It is not the complete legal health record.[facility]
--- OUTSIDE RECORDS SUMMARY | 2025-01-02 16:04 | XMS_ITS | Encounter Summary ---
Author Organization [facility] Address [facility] [employer] [facility] [address] [place] [address] Phone Care Team Providers Care Housekeeping Cleaner Name Role Phone Nilda Watson Unavailable [phone] Octavio Castillo MD Primary Care Provider [phone] Octavio Castillo MD Unavailable [phone] Maryam Wu MD Primary Care Provid er Glenny Dyson NP Primary Care Provider + Juan F Gallo MD Primary Care Provider + Glenny Dyson CASTING AND PASTING SUPERVISOR Primary Care Provider + Pcp, Unknown Primary Care Provider Unavailabl e Pcp, Unknown Primary Care Provider Unavailabl e Jo Ann Hebert Primary Care Provide r Encounter Details Date Type Department Care Team (Late st Contact Info) Description 04/26/2020 Ancillary Orders Virtual Department [address] [place] [address] [address] [phone] [email or web address] Social History Tobacco Use Types [...] documented as of this encounter Care Teams Housekeeping Cleaner Relationship Specialty Start Date End Date Nilda Watson PA [address] [place] [address] [email or web address] PCP - Resident PCP 04/11/19 07/14/21 Octavio Castillo MD [address] [place] [address], [address] [place] [address] [email or web address] PCP - General Internal Medicine 07/10/19 07/14/21 Maryam Wu MD [address] [place] [address] [place] [address] [email or web address] PCP - General Family Medicine 07/15/21 03/05/22 Glenny Dyson NP [address] [place] [address] PCP - General Nurse Practitioner 03/06/22 03/15/22 Juan F Gallo MD [address] [place] [address] PCP - General Internal Medicine 03/16/22 03/16/22 [place] [address] PCP - General Nurse Practitioner 03/17/22 04/14/22 Pcp, Unknown PCP - General 04/15/22 04/11/23 Pcp, Unknown PCP - General 04/12/23 10/02/24 Jo Ann Hebert PA [address] [place] [address] PCP - General Physician Shirt Line Operator 10/03/24 Octavio Castillo MD [address] [place] [address] [address] [place], [place] [phone] [email or web address] Insurance Assigned Provider 08/18/19 11/20/20 documented as of this encounter Additional Source Comments The information contained in this document represents components of the legal health record. It is not the complete legal health record.[facility]
--- OUTSIDE RECORDS SUMMARY | 2025-01-02 16:04 | XMS_ITS | Encounter Summary ---
Author Organization [facility] Address [address] [place] [address] Care Team Providers Care Chrome Tanning Drum Operator Name Role Phone Ana Cortez Primary Care Provider [phone] Encounter Details Date Type Department Care Team (Late st Contact Info) Description 08/11/2022 Orders Only [facility] [address] [place] [address] Brenda Willard, DO [address] [place], [place] [phone] Social History Tobacco Use Types Packs/Day Years [...] on filedocumented in this encounter Care Teams Chrome Tanning Drum Operator Relationship Specialty Start Date End Date Ana Cortez [address] [place] [address] PCP - General 04/10/23 documented as of this encounter
--- OUTSIDE RECORDS SUMMARY | 2025-01-02 16:04 | XMS_ITS | Clinical Summary ---
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 Abdominal pannus 08/27/2024 Intertrigo 08/27/2024 Abrasion of labia minora 08/27/2024 Erythema intertrigo 08/27/2024 Morbid obesity with BMI of 4 0.0-44.9, adult ([facility] V24, [facility] V28) 11/23/2023 Allergic conjunctivitis of both eyes 06/19/2019 Perennial allergic rhinitis 06/19/2019 Arthralgia 04/09/2019 Lower abdominal pain 04/09/2019 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, [facility]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 Melanoma in situ ([facility] V24, [facility] V28) 03/2018 Nevus 08/12/2018 Insulin controlled gestation [...] AM EDT Office Visit Pl[facility] & Reconstructive [address] [address] [place] Status post panniculectomy (Primary Dx); Aftercare following surgery of the skin or subcutaneous tissue 12/04/2024 1:07 PM EDT - 12/04/2024 11:59 PM EDT Hospital Encounter [facility] Ultrasound [address] [place] [address] Status post panniculectomy; Abdominal wall seroma, sequela Discharge Disposition: Home or Self Care 11/24/2024 11:30 AM EDT Office Visit Pl[facility] & Reconstructive [address] [address] [place] Abdominal wall seroma, sequela (Primary Dx); Status post panniculectomy 11/18/2024 10:30 AM EDT Office Visit Plastic & Reconstructive [address] [address] [place] Status post panniculectomy (Primary Dx) 11/03/2024 9:00 AM EDT Office Visit Pl[facility] & Reconstructive [address] [address] [place] Is[place] Status post panniculectomy (Primary Dx) 10/30/2024 1:00 PM EDT Office Visit [facility] & Re[facility]ive [address] [address] [place] Status post panniculectomy (Primary Dx) 10/27/2024 1:30 PM EDT Office Visit Plastic & Reconstructive [address] [address] [place] Is[place] Status post panniculectomy (Primary Dx) 10/27/2024 Telephone Plastic & Reconstructive Surgery [address] [phone] Gail Chavez [place] 10/23/2024 1:30 PM EDT Office Visit Plastic & Reconstructive Surgery [address] [address] [place] Isidro [place] Status post panniculectomy (Primary Dx); Abdominal pannus 10/16/2024 7:39 AM EDT Anesthesia Event [facility] [place] [address] [place] [address] Tenzin Angulo DO 10/16/2024 7:30 AM EDT - 10/16/2024 11:00 AM EDT Surgery [facility] [place] [address] [place] [phone] Arturo Albarran DO PANNICULECTOMY [30027 (CPT )] 10/16/2024 6:15 AM EDT - 10/16/2024 2:26 PM EDT Hospital Encounter [facility] [place] [address] [place] [phone] Arturo Albarran DO Abdominal pannus; Abrasion of labia minora, sequela; Erythema intertrigo Discharge Disposition: Home or Self Care 10/06/2024 11:00 AM EDT Consult Plastic & Reconstructive Surgery [address] [address] Arturo Albarran DO Abdominal pannus (Primary Dx) from Last 3 Months Immunizations Immunization Administration Dates Next Due Tdap Tetanus diptheria acell ular pertussis (Boostrix; Adacel) 7yo and older 10/13/2015 Surgical History Surgery Date Site/Laterality Comments TONSILLECTOMY PROCEDURE: HISTORICAL TONSILLECTOMY OTHER SURGICAL HISTORY PROCEDURE: REMOVAL OF TMJ CONDYLE APPENDECTOMY PROCEDURE: HISTORICAL APPENDECTOMY ESOPHAGOGASTRODUODENOSCOPY 03/29/15 PROCEDURE: CO EGD TRANSORAL BIOPSY SINGLE/MULTIPLE; COMMENT: mild distal [...] Office Visit [facility] [place] [address] [place] [address] [place] Isidro PA [address] [place] [phone] Health Maintenance Due Date Last Done [...] ENDOTRACHEAL(NO CHARGE) Routine 10/16/2024 8:08 AM EDT CO EXCISION EXCESSIVE SKIN/SUBCUTANEOUS TISSUE OTHER AREA 10/16/2024 7:39 AM EDT Abdominal pannus Erythema intertrigo Special Needs 2HRS WITH 30 MIN CLEAN CO EXCISION EXCESSIVE SKIN SUBQ TISSUE ABD INFRAUMBILICAL [...] Signed Date: 12/04/2024 14:36 ET Workstation ID: [id number] Transcribed By: Self Edit Transcribed Date: 12/04/2024 [...] LIDOCAINE was used for local anesthesia. A 5-Montserratian Yueh catheter was advanced under continuous ultrasound guidance [...] 1% LIDOCAINE was usedfor local anesthesia. A 5-Montserratian Yueh catheter was advanced undercontinuous ultrasound guidance into [...] Signed Date: 12/04/2024 14:36 ET Workstation ID: [id number] Transcribed By: Self Edit Transcribed Date: 12/04/2024 14:35 ET us Sierra HUYNH US PROCEDURES Final Result * Culture wound deep (11/24/2024 11:35 AM EDT) Only the most recent of2 resultswithin the time period is included. Culture, Wound No growth at 3 days 11/27/2024 8:26 AM EDT [facility] Gram Stain Result No polymorphonuclear leukocytes, No epithelial cells, and No organisms noted 11/27/2024 8:26 AM EDT [facility] Swab Structure of abdominopelvic wall / Unknown Non-blood Collection / Unknown 11/24/2024 11:35 AM EDT 11/24/2024 11:35 AM EDT New [facility] LAB MICROBIOLOGY - GENERAL OR DERABLES Final Result [facility] [address] [place] [address], [place] [phone] * Tissue exam (10/16/2024 9:46 AM EDT) Final Diagnosis Vulva, right labia minora, labiaplasty: Benign squamous epithelial-lined tissue without hair follicles, consistent with labium minus No significant pathologic change identified 10/17/2024 10:57 AM EDT [facility] Gross Description A. Vulva, right labia minora skin: Labeled vagina, right lab . Received in formalin is a 4.4 x 1.7 x 0.8 cm irregular wells-white rubbery portion of skin and subcutaneous tissue. The cut surfaces are wells-white and edematous. No mass lesions are appreciated. Radiography Technician sections are submitted in one cassette, two pieces. LEONA 10/17/2024 10:57 AM EDT [facility] Disclaimer Unless otherwise specified, all tissue is 10% NB formalin fixed and paraffin embedded. 10/17/2024 10:57 AM EDT [facility] Tissue Vulval structure / Unknown 10/16/2024 9:46 AM EDT 10/16/2024 12:21 PM EDT Arturo Albarran DO LAB PATHOLOGY ORDERABLES Fin al Result [facility] [address] [place] [address], * TH AN ENDOTRACHEAL(NO CHARGE) (10/16/2024 8:08 AM EDT) Narrative Tenzin Angulo DO - 10/16/2024 8:08 AM EDT Tenzin Angulo DO 10/17/2024 8:20 AM General Information and Staff Patient location during procedure: [place] Anesthesiologist: Tenzin Angulo DO Resident/NARROW FABRIC CALENDERER: Brooks Mello CRNA Performed: resident/NARROW FABRIC CALENDERER/CAA Performed by: Brooks Mello CRNA Authorized by: [...] thromboplastin time (10/16/2024 6:44 AM EDT) Pathologist [facility] aPTT 35.0 24.1 - 39.3 sec LAB COAGULATION METHOD 10/16/2024 7:09 AM EDT [facility] Blood Venous blood specimen / Unknown Venipuncture / Unknown 10/16/2024 6:44 AM EDT 10/16/2024 6:51 AM EDT Arturo Albarran DO LAB BLOOD ORDERABLES Final R esult [facility] [address] [place] [address], [place] [phone] * Prothrombin time with INR (10/16/2024 6:44 AM EDT) Protime 11.7 10.6 - 13.9 sec LAB COAGULATION METHOD 10/16/2024 7:09 AM EDT [facility] INR 0.9 LAB COAGULATION METHOD 10/16/2024 7:09 AM EDT [facility] Blood Venous blood specimen / Unknown Venipuncture / Unknown 10/16/2024 6:44 AM EDT 10/16/2024 6:51 AM EDT Arturo Marvin Fessenden DO LAB BLOOD ORDERABLES Final R esult [facility] [address] [place] [address], * BMP (10/16/2024 6:44 AM EDT) Sodium 140 133 - 145 mmol/L LAB CHEMISTRY METHOD 10/16/2024 7:14 AM [facility] Potassium 4.1 3.5 - 5.5 mmol/L LAB CHEMISTRY METHOD 10/16/2024 7:14 AM [facility] Chloride 105 96 - 110 mmol/L LAB CHEMISTRY METHOD 10/16/2024 7:14 AM [facility] CO2 31 21 - 32 mmol/L LAB CHEMISTRY METHOD 10/16/2024 7:14 AM [facility] Anion Gap 4 3 - 11 LAB CHEMISTRY METHOD 10/16/2024 7:14 AM [facility] Glucose 78 70 - 100 mg/dL LAB CHEMISTRY METHOD 10/16/2024 7:14 AM [facility] BUN 11 5 - 25 mg/dL LAB CHEMISTRY METHOD 10/16/2024 7:14 AM [facility] Creatinine 0.69 0.50 - 1.10 mg/dL LAB CHEMISTRY METHOD 10/16/2024 7:14 AM [facility] eGFR 116 >=60 mL/min/1. 73m2 LAB CHEMISTRY METHOD 10/16/2024 7:14 AM [facility] Comment:Calculation based on the Chronic Kidney Disease Epidemiology Collaboration (CKD-EPI) equation refit without adjustment for race. BUN/Creatinine Ratio 15.9 LAB CHEMISTRY METHOD 10/16/2024 7:14 AM [facility] Calcium 9.3 8.5 - 10.5 mg/dL LAB CHEMISTRY METHOD 10/16/2024 7:14 AM [facility] Blood Venous blood specimen / Unknown Venipuncture / Unknown 10/16/2024 6:44 AM EDT 10/16/2024 6:51 AM EDT Arturo Albarran DO LAB BLOOD ORDERABLES Final R esult [facility] [address] [place] [address], * (ABNORMAL) Lipid panel (04/18/2018) LDL/HDL Ratio 4 0 - 4 Triglycerides 97 0 - 150 mg/dL Cholesterol 179 0 - 200 mg/dL HDL 42 >=40 mg/dL LDL Cholesterol 118(A) 0 - 100 mg/dL Blood Venous blood specimen / Unknown Historical Provider LAB BLOOD ORDERABLES Candis l Result * Hm HIV Screening (06/14/2017) Pathologist [facility] HIV Screening abstracted Historical Provider HEALTH MAINTENANCE Final Result * Pap smear (06/13/2017) 06/13/2017 Narrative HISTORICAL TESTING LAB RESULTING AGENCY - 06/20/2017 4:55 PM EDT [id number] THINPREP PAP, IMAGED AND CELL BLOCK: NEGATIVE [...] Most Recently Relevant to Health Maintenance Insurance [facility] Advance Directives * Full Code - [...] currently active code status orders. Care Teams Greenhouse Transplanter Relationship Specialty Start Date End Date Jo Ann Hebert PA [address] [place] [address], [address] [place] [address] PCP - General 08/25/24
[2025-01-02 16:27] LABS: MANUAL DIFF FLAG NO
[2025-01-02 17:07] LABS: Hematocrit 37.4 % (37.0-47.0); Hemoglobin 12.7 g/dl (12.0-16.0); Imm Gran Abs Auto 0.07 X10*3/uL (0.00-0.03); Imm Gran Pct Auto 0.9 % (0.0-0.4); Lymphocytes Absolute Auto 2.6 X10*3/uL (1.2-4.9); Mean Corpuscular HGB Conc 34.0 g/dl (31.0-35.0); Mean Corpuscular Hemoglobin 28.3 pg (27.0-33.0); Mean Corpuscular Volume 83.3 fL (80.0-98.0); NRBC Abs Auto 0.000 X10*3/uL (0.0-0.012); NRBC Pct Auto 0.0 /100WBC (0.0-0.2); Platelet Count 308 X10*3/uL (160-400); Red Blood Count 4.49 X10*6/uL (4.20-5.50); White Blood Count 8.0 X10*3/uL (4.8-10.8)
[2025-01-02 17:50] LABS: Alanine Aminotransferase 13 U/L (0-31); Aspartate Amino Transferase 18 U/L (5-31); Estimated Glomerular Filt Rate > 60
== END 2025-01-02 16:00 | disposition home or self-care (01) ==
LOC: HO.LAB 15:59
PROVIDERS: Visit Provider Internal Medicine Rheumatology
DX: Z79.899 Other long term (current) drug therapy (principal)
CPT/HCPCS: 36415; 82565; 84450; 84460; 85025; 85652; 86140

== ENCOUNTER 2025-01-28 13:06 | Outpatient (AMB) | payer OTHER, SELFPAY ==
--- NOTE | 2025-01-28 13:07 | MHC.OFFVIS ---
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 PAtient states that she is so much pain Accompanied by: Self / Same As Patient Allergies hydroxychloroquine (From Plaquenil) Allergy (Intermediate, Verified 01/28/25 13:08) Vomiting leflunomide Allergy (Intermediate, Verified 01/28/25 13:08) Diarrhea adhesive tape Allergy (Unknown, Verified 01/28/25 13:08) Unknown erythromycin base (ERYTHROMYCIN BASE) Allergy (Unknown, Verified 01/28/25 13:08) UNKNOWN latex (LATEX) Allergy (Unknown, Verified 01/28/25 13:08) UNKNOWN acetaminophen (From Tylenol) Adverse Reaction (Unknown, Verified 01/28/25 13:08) elevates LFT's HPI HPI increasing joint pain: Details: Her pain has gotten worse in her joints. She has been experiencing intermittent fevers for least a month. T-max a 103.3 degrees days ago. Prior to that she had a temperature of a 102 degrees and 101. Her fevers are occurring at night. She she has chills all day. She feels sick. She has been experiencing sinus congestion for the last few days. She has a runny nose. Chronic cough for the last year has not changed. When she breathes she has chest pain localized to her sternum and back. No sick contacts. She fell on her back and has been experiencing more neck and upper back pain. 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 Father No problems noted. Social History Household Members: Spouse and Family Housing: House Are you a primary urgent care technician to a significant other at home: No Do you presently have visiting nurse or other home services: No Alcohol intake: current Alcohol intake frequency: does not drink Patient Tobacco Use Status: Former Tobacco user Tobacco use type: Cigarette e-Cigarette/Vaping Use: Currently Using Second Hand Smoke Exposure: Yes Substance Use Type: Marijuana Advance Directives Date on File: 10/29/23 service: No Current occupational status: disabled Cognitive needs: Yes (Wheelchair, Walker, Cane) Hearing needs: No Vision needs: Yes (Glasses) Female Reproductive History Menstrual Age of Menarche: 10 Physical Exam Vital Signs: Last Vital Signs Pulse 54 01/28/25 13:12 BP 120/80 01/28/25 13:12 Pulse Ox 99 01/28/25 13:12 Oxygen Delivery Method Room Air 01/28/25 13:12 BMI result Body Mass Index 22.3 Const Other: General: Comfortable CVS: RRR Respiratory: clear to auscultation bilaterally. Good respiratory effort. She has pain in mid back with inspiration MSK: Tender to palpate bilateral PIPs, shoulders, knees, ankles. Normal range of motion of upper extremity. Patient is examined in wheelchair. Right 3rd PIP synovitis present with tenderness. Assessment & Plan Assessment & Plan (1) Behcet disease with multisystem involvement: Comment: Recently she developed increased joint pain in setting of URI consisting of intermittent fevers T-max a 103.3 degrees days ago, sinusitis, rhinorrhea, ear fullness. She has had intermittent fevers for 1 month. Since Remicade infusion her symptoms have progressed. We discussed risk of infections with immunosuppression. Her back and neck pain have worsened after a recent fall. 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 Partial control with colchicine 0.6mg BID for oral ulcers with side effect of diarrhea (when she discontinued it, ulcers increased). Otezla 02/2024-11/2024 when Remicade was started, controlled oral ulcers and cutaneous disease. Low-dose prednisone causes agitation. No benefit in controlling joint pain with methylprednisolone. Cortisone injections to bilateral knees from pain management PSSP caused increased pain. MTX caused diarrhea. She has MTHFR mutation. 4 days on Leflunomide caused headache, nausea, dizziness, abdominal pain and hair loss. She has history of dry eyes (SSA/SSB negative) treated with prednisolone topical, punctate plugs by Dr. Michel. She did not tolerate hydroxychloroquine due to vomiting started by Ophthalmology for dry eye syndrome. She saw Dr. Luther Villavicencio Opthalmologist 03/14/2024 who did not see any clinical signs of systemic inflammation in her eyes. She has history of Raynaud's syndrome and benign hypermobility syndrome. History of uterine and rectal prolapse. She was referred to Genetics at [facility] but no showed to appointment as patient did not have a ride. Neurological evaluation with imaging and EMGs have not revealed neurological involvement of Behcet's syndrome. She has had bilateral upper and R lower extremity EMG is that revealed bilateral carpal tunnel syndrome (03/2023 [facility] note), EMGs bilateral lower extremities [facility] 11/02/2023 normal, CT brain December 2022 and MRI C to T-spine 08/22/2022, MRI L-spine January 2021 has been negative. MRI brain May 2023 ordered by neurologist at [facility] was negative. Remicade started for inflammatory arthritis 12/02/2024- Code(s): M35.2 - Behcet's disease Category: Medical Plan: I recommend urgent care evaluation and management of URI I have ordered chest x-ray to rule out infection I have ordered T-spine and C-spine x-ray to rule out new spinal pathology such as compression fracture contributing to worsening neck and back pain after fall Continue colchicine 0.6 mg b.i.d maintenance.. She will increase frequency to t.i.d. during flares of oral ulcers temporarily Continue Infliximab 3 milligram/kilogram last dose of induction schedule next month then maintenance every 8 weeks. Next infusion scheduled for March 10. She is aware to hold infusion if she is sick. 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 Failed physical therapy, knee bracing, acetaminophen, multiple NSAIDs. Intra-articular cortisone injection caused increased pain. MRI bilateral knees (07/2024, 08/2024) with and without contrast did not reveal inflammatory arthritis. She has right knee medial and lateral meniscal tear. She has left knee tear of the origin of the gastrocnemius tendon. She does not have significant arthritis on imaging to contribute to her pain. Caution is advised with consideration of surgery due to the increased laxity of her tendons. She has seeked academic opinion with orthopedic surgery [facility] [place]. She was not happy with her evaluation. Code(s): M25.561 - Pain in right knee; M25.562 - Pain in left knee Category: Medical Qualifiers: Chronicity: chronic Qualified Code(s): M25.561 - Pain in right knee; M25.562 - Pain in left knee; G89.29 - Other chronic pain Plan: I recommend that she seek opinion from Dr. Palomo at [facility] Orthopedic surgery Department. She has a appointment scheduled. (4) Coffee ground emesis: Comment: With associated abdominal pain Code(s): K92.0 - Hematemesis Category: Medical Plan: I have asked her to contact GI for evaluation with consideration of EGD Avoiding oral NSAIDs (5) Pain aggravated by breathing: Code(s): R07.1 - Chest pain on breathing Category: Medical Plan: Chest x-ray ordered to rule out infection Orders: Orders XR chest 2V Today R07.1 - Chest pain on breathing XR thoracic spine 3V Today M54.9 - Dorsalgia, unspecified XR cervical spine 3V Today M54.2 - Cervicalgia Coding Level of Care Code Est Pt Level 3 (93172) Add On Problem Visit Only Diagnoses Behcet disease with multisystem involvement M35.2 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
[2025-01-28 13:12] VITALS: BP 120/80; PULSE 54; O2SAT 99; BMI 22.3
--- OUTSIDE RECORDS SUMMARY | 2025-01-28 17:16 | XMS_ITS | Clinical Summary ---
Author Organization [facility] Address [address] [place] [address] Care Team Providers Care Embossing Press Operator Apprentice Name Role Phone Ana Cortez Primary Care Provider [phone] Allergies Active Allergy Reactions Criticality Noted Date [...] - Td or Tdap) 10/12/2025 10/13/2015 Insurance [facility] MEDICAID [employer] Care Teams Embossing Press Operator Apprentice Relationship Specialty Start Date End Date Ana Cortez [address] [place] [address] PCP - General 04/10/23
--- OUTSIDE RECORDS SUMMARY | 2025-01-28 17:17 | XMS_ITS | Encounter Summary ---
Author Organization [facility] Address [address] [place] [address] Care Team Providers Care Abstract Checker Name Role Phone Ana Cortez Primary Care Provider [phone] Encounter Details Date Type Department Care Team (Late st Contact Info) Description 08/11/2022 Orders Only [facility] [address] [place] [address] Brenda Willard, DO [address], [place] [id number] Social History Tobacco Use Types Packs/Day Years [...] on filedocumented in this encounter Care Teams Abstract Checker Relationship Specialty Start Date End Date Ana Cortez [address] [place] [address] PCP - General 04/10/23 documented as of this encounter
--- OUTSIDE RECORDS SUMMARY | 2025-01-28 17:17 | XMS_ITS | Clinical Summary ---
Author Organization [facility] Address Critical access hospital [employer] [facility] [address] [place] [phone] Phone Care Team Providers Care Director Of Media Name Role Phone Jo Ann Hebert Primary [...] 4 tablet, 0 Refills, Maintenance, 03/06/22 14:34:00 [id number], Partial fill upon patient request if the [...] Conservative therapy not effective. Patient noting decreased drainlayer strength and progressive pain. -will refer to [...] 9:20 AM EDT): Will be scheduled with [facility]. Saw Dr. Reyes who [...] (04/20/2019 2:05 PM EDT): Possible GI vs LIBRARY CATALOGING TECHNICIAN etiology. S/p appendectomy-possible adhesion formation, endometriosis. -will obtain CT abdomen/pelvis. Has not had one since onset of pain -urgent referral to LIBRARY CATALOGING TECHNICIAN to discuss pain/recent u/s with possible [...] 2017. She would like referral to new polysilicon preparation worker given her recent bad experience with criss [...] Department Care Team Description 12/30/2024 Ancillary Orders [facility] [address] [place] [id number] Natalee Dotson PA-C Instability of right knee joint (Primary Dx) 12/18/2024 2:30 PM EST Office Visit [facility] [address] [address] Cr Kidd MD Patellar instability of right knee (Primary Dx); Patellar instability of left knee; Instability of right knee joint 11/11/2024 2:00 PM EDT Office Visit [facility] [address] [place] [address], [address] [place] [address] Jeremiah Leal MD Patellar instability of right knee (Primary Dx); Chronic pain of right knee; Patellar instability of left knee; Old tear of meniscus of right knee, unspecified meniscus, unspecified tear type; EDS (Kings-Danlos syndrome); POTS (postural orthostatic tachycardia syndrome); Behcet's disease; Right foot drop 11/11/2024 1:30 PM EDT - 11/11/2024 11:59 PM EDT Hospital Encounter [facility] [place] [address] Jeremiah Leal MD Discharge Disposition: Home or Self Care 11/11/2024 1:15 PM EDT - 11/11/2024 1:29 PM EDT Hospital Encounter [facility] [address] [address] Jeremiah Leal MD Discharge Disposition: Home or Self Care 11/11/2024 Ancillary Orders [facility] [address] [place] [address] Jeremiah Leal MD 11/11/2024 Ancillary Orders [facility] [address] [place] [address] Jeremiah Leal MD 11/11/2024 Ancillary Orders [facility] [address] [place] [address] Jeremiah Leal MD 11/10/2024 Orders Only [facility] [address] [place] [address] Jeremiah Leal MD Right knee pain, unspecified [...] Comments XR KNEE 3 VIEW (RIGHT) Routine 11/11/2024 1:57 PM EDT Right knee pain, unspecified chronicity XR KNEE 1-2 VIEWS (LEFT) Routine 11/11/2024 1:56 PM EDT Left knee pain, unspecified chronicity from Last 3 Months Results * XR [...] change. Moderate effusion. [facility]/11/2024 XR KNEE 3 [...] change. Moderate effusion. Procedure Note Spenser Madrigal [facility] AARTI - 11/11/2024 XR KNEE 3 VIEW [...] IMG XR LOWER EXTREMITY Final R esult from Last [address] [place] [address] [place] [address] [place] [address] [place] [address] [employer] [facility] [place] [address] [place] [address] [employer] [facility] A[employer] Care Teams Director Of Media Relationship Specialty Start Date End Date Jo Ann Hebert PA [address] [place] [address] [place] [address] PCP - General Physician Assistant Director Of Financial Aid 10/03/24 Additional Source Comments The information contained in this document represents components of the legal health record. It is not the complete legal health record.[facility]
--- OUTSIDE RECORDS SUMMARY | 2025-01-28 17:17 | XMS_ITS | Encounter Summary ---
Author Organization [facility] Address [facility] [address] [place] [phone] Phone Care Team Providers Care Thread Inspector Name Role Phone Nilda Watson Unavailable Octavio Castillo MD Primary Care Provider [phone] Octavio Castillo MD Unavailable [phone] Maryam Wu MD Primary Care Provid er Glenny Dyson NP Primary Care Provider + Yair Gallo MD Primary Care Provider Glenny Dyson SENIOR INTERACTION DESIGNER Primary Care Provider + Pcp, Unknown Primary Care Provider Unavailabl e Pcp, Unknown Primary Care Provider Unavailabl e Jo Ann Hebert Primary Care Provide r Encounter Details Date Type Department Care Team (Late st Contact Info) Description 04/26/2020 Ancillary Orders Virtual Department [address] [place] [address] Falguni Valerio [address] [id number] viral [email or web address] Social History Tobacco Use Types [...] documented as of this encounter Care Teams Thread Inspector Relationship Specialty Start Date End Date Nilda Watson PA [address] [place] [id number] [email or web address] PCP - Resident PCP 04/11/19 07/14/21 Octavio Castillo MD [address] [place] [address], [address] [place] [address] [email or web address] PCP - General Internal Medicine 07/10/19 07/14/21 Maryam Wu MD [address] [place] [address] [place] [phone] [email or web address] PCP - General Family Medicine 07/15/21 03/05/22 Glenny Dyson NP [address] [place] [address] PCP - General Nurse Practitioner 03/06/22 03/15/22 Yair Gallo MD [address] [place] [address] PCP - General Internal Medicine 03/16/22 03/16/22 [place] [address] PCP - General Nurse Practitioner 03/17/22 04/14/22 Pcp, Unknown PCP - General 04/15/22 04/11/23 Pcp, Unknown PCP - General 04/12/23 10/02/24 Jo Ann Hebert PA [address] [place] [address] PCP - General Physician Jet Operator 10/03/24 Octavio Castillo MD [address] [place] [address], [address] [place] [address] [email or web address] Insurance Assigned Provider 08/18/19 11/20/20 documented as of this encounter Additional Source Comments The information contained in this document represents components of the legal health record. It is not the complete legal health record.[facility]
--- OUTSIDE RECORDS SUMMARY | 2025-01-28 17:17 | XMS_ITS | Encounter Summary ---
Author Organization [facility] Address [address] [place] [address] Phone Care Team Providers Care Metal Control Worker Name Role Phone Pcp, Unknown Primary Care Provider Jo Ann Mg Primary Care Provide r Encounter Details Date Type Department Care Team (Late st Contact Info) Description 04/12/2023 Procedure Pass [facility], [facility] Scan - [facility] [address] [place] [address] Social History Tobacco Use Types Packs/Day Years [...] 04/12/2023 9:23 PM Lucille Shah RN * [place] Suicide Severity Rating Scale (Screener/Recent Self-Report) Question [...] documented as of this encounter Care Teams Metal Control Worker Relationship Specialty Start Date End Date Pcp, Unknown PCP - General 04/12/23 10/02/24 Jo Ann Hebert PA [address] [place] [address] Dr [address] [place] [address] PCP - General Physician Storage Management Consultant 10/03/24 documented as of this encounter Additional Source Comments The information contained in this document represents components of the legal health record. It is not the complete legal health record.[facility]
--- OUTSIDE RECORDS SUMMARY | 2025-01-28 17:17 | XMS_ITS | Encounter Summary ---
Author Organization [facility] Address [facility] [employer] [facility] [address] [place] [address] Phone Care Team Providers Care Loading And Unloading Supervisor Name Role Phone Glenny Dyson NP Primary Care Provider + Pcp, Unknown Primary Care Provider Unavailabl e Pcp, Unknown Primary Care Provider Unavailabl e Jo Ann Hebert Primary Care Provide r Encounter Details Date Type Department Care Team (Late st Contact Info) Description 03/17/2022 Procedure Pass [facility] Admitting Dept Virtual Department [address] [place] [phone] Social History Tobacco Use Types Packs/Day Years [...] documented as of this encounter Care Teams Loading And Unloading Supervisor Relationship Specialty Start Date End Date Glenny Dyson NP [address] [place] [address] PCP - General Nurse Practitioner 03/17/22 04/14/22 Pcp, Unknown PCP - General 04/15/22 04/11/23 Pcp, Unknown PCP - General 04/12/23 10/02/24 Jo Ann Hebert PA [address] [facility] [place] [address] PCP - General Physician Contract Negotiator 10/03/24 documented as of this encounter Additional Source Comments The information contained in this document represents components of the legal health record. It is not the complete legal health record.[facility]
--- OUTSIDE RECORDS SUMMARY | 2025-01-28 17:17 | XMS_ITS | Clinical Summary ---
Author Organization [facility] Prior to 07/12/24 Address [address] [place] [address] Care Team Providers Care Punch Press Operator Helper Name Role Phone Ana Cortez NP Primary Care Provider [phone] Allergies Active Allergy Reactions Criticality Noted Date [...] age to complete this topic Care Teams Punch Press Operator Helper Relationship Specialty Start Date End Date Ana Cortez SR. SOCIAL MEDIA & MOBILE MANAGER [address] [address] PCP - General Family Medicine 09/21/22
--- OUTSIDE RECORDS SUMMARY | 2025-01-28 17:17 | XMS_ITS | Clinical Summary ---
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 Biopsies Abdominal ultrasound 2/17/18 wnl Asthma 09/24/2013 Encounters Date Type Department Care Team Description 01/15/2025 2:30 PM EST Office Visit Plastic & Reconstructive Surgery [address] [address] [place] Isidro PA Status post panniculectomy (Primary Dx) 12/11/2024 10:15 AM EDT Office Visit Plastic Reconstructive [address] [address] [place] Status post panniculectomy (Primary Dx); Aftercare following surgery of the skin or subcutaneous tissue 12/04/2024 1:07 PM EDT - 12/04/2024 11:59 PM EDT Hospital Encounter [facility] Ultrasound [address] [place], [place] [address] [address] Status post panniculectomy; Abdominal wall seroma, sequela Discharge Disposition: Home or Self Care 11/24/2024 11:30 AM EDT Office Visit Plastic & Reconstructive Surgery [address] [address] [place] PA Abdominal wall seroma, sequela (Primary Dx); Status post panniculectomy 11/18/2024 10:30 AM EDT Office Visit Plastic & Reconstructive [address] [phone] [facility] Isidro PA Status post panniculectomy (Primary Dx) 11/03/2024 9:00 AM EDT Office Visit Plastic & Reconstructive Surgery [address] [address] [place] Isidro PA Status post panniculectomy (Primary Dx) 10/30/2024 1:00 PM EDT Office Visit Plastic & Reconstructive [address] [address] [place] Isidro PA Status post panniculectomy (Primary Dx) from Last 3 Months Immunizations Immunization Administration Dates Next Due Tdap Tetanus diptheria acell ular pertussis (Boostrix; Adacel) 7yo and older 10/13/2015 Surgical History Surgery Date Site/Laterality Comments TONSILLECTOMY PROCEDURE: HISTORICAL TONSILLECTOMY OTHER SURGICAL HISTORY PROCEDURE: REMOVAL OF TMJ CONDYLE APPENDECTOMY PROCEDURE: HISTORICAL APPENDECTOMY ESOPHAGOGASTRODUODENOSCOPY 03/29/15 PROCEDURE: [place] EGD TRANSORAL BIOPSY SINGLE/MULTIPLE; COMMENT: mild distal [...] on file Sexual Orientation Not on file Last Filed Vital Signs [...] 10/16/2024 6:53 AM EDT Plan of Treatment Health Maintenance [...] Cancer Screening: P ap Smear 06/13/2020 06/13/2017, 06/13/2017 Hepatitis C Screening 01/14/2022 Social [...] seroma, sequela CULTURE WOUND DEEP Routine 11/24/2024 11 :35 AM EDT Status post panniculectomy Abdominal wall seroma, sequela CULTURE WOUND DEEP Routine 11/18/2024 11 :12 AM EDT Status post panniculectomy LIPID PANEL Routine 04/18/2018 HM HIV SCREENING [...] Signed Date: 12/04/2024 14:36 ET Workstation ID: [id number] Transcribed By: Self Edit Transcribed Date: 12/04/2024 [...] LIDOCAINE was used for local anesthesia. A 5-Lithuanian The Glassbox catheter was advanced under continuous ultrasound guidance [...] 1% LIDOCAINE was usedfor local anesthesia. A 5-Lithuanian The Glassbox catheter was advanced undercontinuous ultrasound guidance into [...] Signed Date: 12/04/2024 14:36 ET Workstation ID: [id number] Transcribed By: Self Edit Transcribed Date: 12/04/2024 14:35 ET us [facility]YNH US PROCEDURES Final Result * Culture wound deep (11/24/2024 11:35 AM EDT) Only the most recent of2 resultswithin the time period is included. Culture, Wound No growth at 3 days 11/27/2024 8:26 AM EDT [facility] Gram Stain Result No polymorphonuclear leukocytes, No epithelial cells, and No organisms noted 11/27/2024 8:26 AM EDT [facility] Swab Structure of abdominopelvic wall / Unknown Non-blood Collection / Unknown 11/24/2024 11:35 AM EDT 11/24/2024 11:35 AM EDT [facility] MICROBIOLOGY - GENERAL OR DERABLES Final Result [facility] [address] [place] [address], [place] [phone] * (ABNORMAL) Lipid panel (04/18/2018) LDL/HDL Ratio [...] RESULTING AGENCY - 06/20/2017 4:55 PM EDT [id number] THINPREP PAP, IMAGED AND CELL BLOCK: NEGATIVE [...] [facility] Advance Directives * Full Code [...] currently active code status orders. Care Teams Steamer Gum Candy Relationship Specialty Start Date End Date Jo Ann Hebert PA [address] [place] [address], [address] [place] [address] PCP - General 08/25/24
--- OUTSIDE RECORDS SUMMARY | 2025-01-28 17:17 | XMS_ITS | Encounter Summary ---
Author Organization [facility] Address [facility] [address] [place] [phone] Phone Care Team Providers Care Health Assessment And Treatment Teacher Name Role Phone Jo Ann Hebert Primary Care Provide r Reason for Referral * MRI/CAT Scan - Authorized Specialty Diagnoses / Procedures Referred By Rob salamanca Referred To Contact Radiology Diagnoses Instability of right knee joint Procedures CT 3D Reconstruction Knee CHG 3D RENDERING W/INTERP&POSTPROC DIFF WORK STATION Natalee Dotson PA-C [address] [place] [address] Department [place] [address] Phone: tel: fax: mailto:[email or web address] Referral ID Status Reason Start Date Expiration Date V isits Requested Visits Authorized [id number] Authorized 12/24/2024 02/22/2025 1 1 Encounter Details Date Type Department Care Team (Late st Contact Info) Description 12/30/2024 Ancillary Orders [facility] [address] [place] [phone] Natalee Dotson PA-C [address] [place] [address] Department [place] [address] [email or web address] Instability of right knee joint (Primary Dx) [...] documented as of this encounter Care Teams Health Assessment And Treatment Teacher Relationship Specialty Start Date End Date Jo Ann Hebert PA [address] [place] [address] [address] [address] PCP - General Physician Brake Repair Mechanic 10/03/24 documented as of this encounter Additional Source Comments The information contained in this document represents components of the legal health record. It is not the complete legal health record.[facility]
--- OUTSIDE RECORDS SUMMARY | 2025-01-28 17:17 | XMS_ITS | Encounter Summary ---
Author Organization [facility] Address [facility] [address] [place] [phone] Phone Care Team Providers Care Windows Infrastructure Engineer Name Role Phone Glenny Dyson NP Primary Care Provider + Pcp, Unknown Primary Care Provider Unavailabl e Pcp, Unknown Primary Care Provider Unavailindiana e Jo Ann Hebert Primary Care Provide r Encounter Details Date Type Department Care Team (Late st Contact Info) Description 03/22/2022 Procedure Pass [facility], Ct Scan - [address] [address] Social History Tobacco Use Types Packs/Day Years [...] 2:47 AM EST Kevin Luo RN * Mather Suicide Severity Rating Scale (Screener/Recent Self-Report) Question [...] documented as of this encounter Care Teams Windows Infrastructure Engineer Relationship Specialty Start Date End Date Glenny Dyson NP [address] [place] [address] PCP - General Nurse Practitioner 03/17/22 04/14/22 Pcp, Unknown PCP - General 04/15/22 04/11/23 Pcp, Unknown PCP - General 04/12/23 10/02/24 Jo Ann Hebert PA [address] [place] [address] PCP - General Physician Print Line Operator 10/03/24 documented as of this encounter Additional Source Comments The information contained in this document represents components of the legal health record. It is not the complete legal health record.[facility]
--- OUTSIDE RECORDS SUMMARY | 2025-01-28 17:17 | XMS_ITS | Encounter Summary ---
Author Organization [facility] Address [facility] [employer] [address] [place] [address] Phone Care Team Providers Care Roofer Gypsum Name Role Phone Pcp, Unknown Primary Care Provider Unavailabl e Pcp, Unknown Primary Care Provider Unavailabl e Jo Ann Hebert Primary Care Provide r Encounter Details Date Type Department Care Team (Late st Contact Info) Description 04/15/2022 Procedure Pass [facility], Ct Scan - [address] [address] Social History Tobacco Use Types Packs/Day Years [...] 04/15/2022 7:37 PM Glenny Brothers RN * [place] Suicide Severity Rating Scale (Screener/Recent Self-Report) Question [...] documented as of this encounter Care Teams Roofer Gypsum Relationship Specialty Start Date End Date Pcp, Unknown PCP - General 04/15/22 04/11/23 Pcp, Unknown PCP - General 04/12/23 10/02/24 Jo Ann Hebert PA [address] [place] [address] [place] [address] PCP - General Physician Pattern Wheel Maker 10/03/24 documented as of this encounter Additional Source Comments The information contained in this document represents components of the legal health record. It is not the complete legal health record.[facility]
== END 2025-01-28 14:50 | disposition home or self-care (01) ==
LOC: HO.RHES 13:06
PROVIDERS: Visit Provider Internal Medicine Rheumatology
DX: M35.2 Behcet's disease (principal); Z79.899 Other long term (current) drug therapy; M25.561 Pain in right knee; M25.562 Pain in left knee; G89.29 Other chronic pain; K92.0 Hematemesis; R07.1 Chest pain on breathing
CPT/HCPCS: 99213

== ENCOUNTER 2025-01-28 13:06 | Outpatient (REF) | payer OTHER, SELFPAY ==
--- NOTE | ~2025-01-28 | XR_ITS ---
EXAMINATION: XR THORACIC SPINE CLINICAL INFORMATION: M54.9 - Dorsalgia, unspecified COMPARISON: September 26, 2024 x-ray and MRI October 12, 2024 TECHNIQUE: 3 views of the thoracic spine were obtained. FINDINGS: S-shaped scoliosis has increased since the prior examination. There is scoliosis in the upper thoracic spine measuring 23 degrees, previously 14 degrees, with apex at T6. There is 29 degrees, previous 66 degrees, levoscoliosis involving the thoracolumbar junction with apex at T11-12. There are mild superior endplate compression fractures in the lower thoracic spine, approximately T10 and T11, present on prior MRI. XR/XR thoracic spine 3V IMPRESSION: Increasing S-shaped scoliosis. Stable chronic compression fractures involving superior endplates of T10 and T11. Electronically signed by: Quinten Ruff MD 01/28/2025 05:33 PM EST
--- NOTE | ~2025-01-28 | XR_ITS ---
EXAMINATION: XR CHEST CLINICAL INFORMATION: R07.1 - Chest pain on breathing COMPARISON: 01/22/2025 TECHNIQUE: 2 views of the chest were obtained. FINDINGS: There is 20 degrees dextroscoliosis, previously 13 degrees. There is no pneumothorax. Lungs are clear. Heart size is within normal limits. There is no pleural effusion. XR/XR chest 2V IMPRESSION: No acute disease. Increased mild dextroscoliosis. Electronically signed by: Quinten Ruff MD 01/28/2025 05:28 PM [facility]
--- NOTE | ~2025-01-28 | XR_ITS ---
EXAM: CR Xr Cervical Spine 3v TECHNIQUE: AP, AP odontoid, and lateral x-rays cervical spine INDICATION: Neck pain PRIOR: 09/26/2024 FINDINGS: There is straightening of the cervical lordosis. There is 16 degrees levoscoliosis, decreased from 21 degrees. There is no prevertebral soft tissue swelling. There is subtle retrolisthesis at C4-5, C5-6, and C6-7, unchanged. XR/XR cervical spine 3V IMPRESSION: There is straightening of the expected cervical lordosis. This can be idiopathic, but can also be related to degenerative change, muscle spasm, or posterior soft tissue injury. Mildly decreased levoscoliosis. Electronically signed by: Quinten Ruff MD 01/28/2025 05:36 PM [facility]
[2025-01-28 19:58] LABS: Resp Syncy Virus RNA Qual PCR NEGATIVE (Negative); SARS COV2 PCR INHOUSE NEGATIVE (Negative)
== END 2025-01-28 13:07 | disposition home or self-care (01) ==
LOC: HO.LAB 13:06
PROVIDERS: Physician Assistant; Visit Provider Internal Medicine Rheumatology
DX: N30.01 Acute cystitis with hematuria (principal); J01.90 Acute sinusitis, unspecified; B97.89 Other viral agents as the cause of diseases classified elsewhere; M35.2 Behcet's disease; M25.561 Pain in right knee; M25.562 Pain in left knee; G89.29 Other chronic pain; K92.0 Hematemesis; R07.1 Chest pain on breathing; M54.2 Cervicalgia; M54.9 Dorsalgia, unspecified; R09.89 Other specified symptoms and signs involving the circulatory and respiratory systems; Z79.899 Other long term (current) drug therapy
CPT/HCPCS: 71046; 72040; 72072; 87086; 87637; 99212

== ENCOUNTER 2025-01-28 13:46 | Outpatient (AMB) | payer OTHER, SELFPAY ==
[2025-01-28 13:46] VITALS: BP 115/67; PULSE 56; RESP 20; TEMP 36.6; O2SAT 99; BMI 22.3
--- NOTE | 2025-01-28 13:46 | AM.OFFWIN_ITS ---
Intake Vital Signs 01/28/25 13:46 Height 5 ft 4 in Weight 130 lb BMI 22.3 BP 115/67 Blood Pressure Location Rt brachial Position Sitting Respiration 20 Pulse 56 Pulse Source Pulse Oximeter Temp 97.8 F Temp Source Oral Pulse Oximetry (%) 99 Oxygen Delivery Method Room Air Intake Visit Reasons: EP- Joint Pain, Ear Pain Intake Note: EP complains of lower back pain, urgency and burning (hot) sensation during urination for a week, all joint pain for the last 4 years however it got worst in the last two weeks, and ear blocking sensation for three weeks. Patient Tobacco Use Status: Former Tobacco user Allergies hydroxychloroquine (From Plaquenil) Allergy (Intermediate, Verified 01/28/25 14:11) Vomiting leflunomide Allergy (Intermediate, Verified 01/28/25 14:11) Diarrhea adhesive tape Allergy (Unknown, Verified 01/28/25 14:11) Unknown erythromycin base (ERYTHROMYCIN BASE) Allergy (Unknown, Verified 01/28/25 14:11) UNKNOWN latex (LATEX) Allergy (Unknown, Verified 01/28/25 14:11) UNKNOWN acetaminophen (From Tylenol) Adverse Reaction (Unknown, Verified 01/28/25 14:11) elevates LFT's Do you need a note to return to daycare/school/sports/work: No HPI HPI Comments History of Present Illness Details History - The patient is a 35-year-old female wi th a complex past medical history including Bechet's disease, chronic pain syndrome, inflammatory arthritis, IgA deficiency, recurrent UTIs, pelvic organ prolapse, anxiety, depression, osteoarthritis, fibromyalgia, muscle spasticity, chronic migraines with auras with multiple complaints including urinary tract infection symptoms, lower back pain, and upper respiratory issues. - The patient reports an ear blocking an d popping sensation for about three weeks and a sore throat for one week. - Associated symptoms include sinus pain , headaches that are different from her typical migraines, a runny nose, and a chronic cough for over a year. - Her general symptoms include feeling u nwell for a month, constant fatigue, and night sweats. She also reports swollen lymph nodes on the right side of her neck. - She has a history of Behcet's disease, which causes ulcers in her mouth, throat, and nose, and has resulted in a nasal perforation from prior nose sprays, precluding the use of a Neti pot, though she does use saline sprays. - She has a history of asthma that typic ally flares when she is sick, for which she uses an albuterol rescue inhaler and has a nebulizer at home but is out of the solution. - She reports shortness of breath with h er current illness. - She reports her liver enzymes can beco me elevated with Tylenol use. - she has her baseline nausea with no vo miting or diarrhea. - Regarding her urinary symptoms, she re ports a constant feeling of needing to urinate. - She is prone to infections in general and has been experiencing random fevers at night, with one measured at 102.9? F at 4AM today, which responded to Tylenol, as well as constant chills for the last three weeks. - She reports worsening joint pain for t he last two weeks, which her metallographic technician believes is a flare-up of her inflammatory condition secondary to an URI. Her Rheum would like her swabbed for viruses and ordered a CXR. - She also experiences back pain that hu rts to breathe and move, with a sensation of her lower ribs being broken. Review of Systems - Constitutional: Reports measured fever s at night, chills for three weeks, fatigue, and night sweats. - HEENT: Reports ear blocking sensation and popping for three weeks, sore throat for one week, sinus pain, headaches different from her typical migraines, and a runny nose. History of ulcers in mouth, throat, and nose. - Respiratory: Reports a chronic cough f or over a year and shortness of breath. Denies wheezing. - Gastrointestinal: Reports abdominal pa in. Notes that baseline nausea and diarrhea are not worse than usual. Reports reflux. - Genitourinary: Reports urinary frequen cy and a constant urge to urinate. - Musculoskeletal: Reports worsening aziza nt pain for two weeks and lower back angle n that hurts to breathe and move. - Neurological: Reports headaches and a history of dizziness. - Lymphatic: Reports swollen lymph nodes . All systems reviewed and are unremarkable except as noted in HPI Physical Exam General: Cooperative, healthy appearing, comfortable and no acute distress Orientation/consciousness: Patient oriented x3 Limitations: uses wheelchair Head: Normal to inspection Ears: Hearing grossly normal bilaterally, external ears normal, EAC's normal bilaterally and TM's normal bilaterally Nose: Normal external nose present, Normal nares present and No nasal discharge present Face and sinus: Normal facial exam and frontal sinuses tender Mouth: Normal oral and palatal mucosa present and moist mucous membranes Throat: tonsils absent, uvula midline, posterior oropharynx with mild erythema Eyes: Appearance normal, both eyes and all related structures Neck: Normal visual inspection, full ROM, lymph nodes swollen Respiratory: Clear to auscultation bilaterally. Normal respiratory effort, able to speak in complete sentences, actively coughing, no respiratory distress, not tachypneic, no tripod positioning and no use of accessory muscles Cardiovascular: Regular rate and rhythm. 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 Father No problems noted. Social History Household Members: Spouse and Family Housing: House Are you a primary clinical care coordinator to a significant other at home: No Do you presently have visiting nurse or other home services: No Alcohol intake: current Alcohol intake frequency: does not drink Patient Tobacco Use Status: Former Tobacco user Tobacco use type: Cigarette e-Cigarette/Vaping Use: Currently Using Second Hand Smoke Exposure: Yes Substance Use Type: Marijuana Advance Directives Date on File: 10/29/23 service: No Current occupational status: disabled Cognitive needs: Yes (Wheelchair, Walker, Cane) Hearing needs: No Vision needs: Yes (Glasses) Female Reproductive History Menstrual Age of Menarche: 10 Physical Exam Vital Signs: Last Vital Signs Temp 97.8 F 01/28/25 13:46 Pulse 56 01/28/25 13:46 Resp 20 01/28/25 13:46 BP 115/67 01/28/25 13:46 Pulse Ox 99 01/28/25 13:46 Oxygen Delivery Method Room Air 01/28/25 13:46 BMI result Body Mass Index 22.3 Results AMB Urinalysis, Automated UA Leukoctes 15 Nicole/uL Last Edit by Amanda Agarwal MA on 01/28/25 14:30 Trance Amanda Agarwal 01/28/25 14:30 UA Nitrite Negative Last Edit by Amanda Agarwal MA on 01/28/25 14:30 UA Urobilinogen 0 mg/dL Last Edit by Amanda Agarwal MA on 01/28/25 14:30 UA Protein 15 mg/dL Last Edit by Amanda Agarwal MA on 01/28/25 14:30 Trace Amanda Agarwal 01/28/25 14:30 UA pH 6.5 Last Edit by Amanda Agarwal MA on 01/28/25 14:30 UA Blood 25 Ankur/uL Last Edit by Amanda Agarwal MA on 01/28/25 14:30 1+ Amanda Agarwal 01/28/25 14:30 UA Specific [place] 1.015 Last Edit by Amanda Agarwal MA on 01/28/25 14:3 0 UA Ketone Negative Last Edit by Amanda Agarwal MA on 01/28/25 14:30 UA Bilirubin 0 mg/dL Last Edit by Amanda Agarwal MA on 01/28/25 14:30 UA Glucose 0 mg/dL Last Edit by Amanda Agarwal MA on 01/28/25 14:30 Results Reviewed Results Reviewed: Laboratory Last Values Urine pH (Auto) 6.5 01/28/25 13:56 Specific [place] (Auto) 1.015 01/28/25 13:56 Urine Protein (Auto) 15 mg/dL 01/28/25 13:56 Glucose (UA)(Auto) 0 mg/dL 01/28/25 13:56 Urine Ketones (Auto) Negative 01/28/25 13:56 Urine Blood (Auto) 25 Ankur/uL H* 01/28/25 13:56 Urine Nitrite (Auto) Negative 01/28/25 13:56 Urine Bilirubin (Auto) 0 mg/dL 01/28/25 13:56 Urine Urobilinogen (Auto) 0 mg/dL 01/28/25 13:56 Leukocyte Esterase (Auto) 15 Nicole/uL 01/28/25 13:56 Assessment & Plan Assessment & Plan (1) Acute viral sinusitis: Code(s): J01.90 - Acute sinusitis, unspecified; B97.89 - Other viral agents as the cause of diseases classified elsewhere Plan: Plan Patient was informed and verbally consented to the use of an ambient scribe for clinic note documentation during this visit. - VSS, pt well appearing and PE remarkable for sinus ttp. Lungs were clear. - A nasal swab for influenza, COVID-19, and RSV was collected, with results expected the following day. - The patient was counseled that a negative result could still indicate a viral infection not covered by the panel, such as rhinovirus. - A prescription for albuterol nebulizer solution will be sent to the pharmacy for as-needed use for asthma symptoms and shortness of breath. She should also use her inhaler, as prescribed. - The patient will proceed with a chest X-ray as ordered by her metallographic technician. - Can use OTC meds for her symptoms. (2) Urinary tract infection: Code(s): N39.0 - Urinary tract infection, site not specified Qualifiers: Urinary tract infection type: acute cystitis Hematuria presence: with hematuria Qualified Code(s): N30.01 - Acute cystitis with hematuria Plan: Urinary Tract Infection - Based on symptoms and the urinalysis positive for blood and leukocytes, empiric treatment for a UTI was initiated. - A prescription for cefuroxime one tablet every 12 hours for five days will be sent to the pharmacy. - The choice of antibiotic is based on a prior culture from a year ago showing e coli with susceptibility to cephalosporins. - The patient was instructed to temporarily discontinue famotidine due to a drug interaction and was advised that Tums is an acceptable alternative for reflux. - She was informed that the antibiotic may be changed or discontinued based on culture results. (3) Polyarthralgia: Code(s): M25.50 - Pain in unspecified joint Plan: Worsening Arthralgia And Myalgia - The worsening joint and back pain is thought to be a flare of her underlying inflammatory conditions, possibly triggered by a concurrent infection. - Blood work was deferred, as the patient has an appointment with her PCP in less than a week. - The patient was advised to follow up with her PCP, Jo Ann, for further evaluation and management of her chronic conditions and overall malaise. - It was recommended that she request more frequent follow-up appointments (e.g., every three months) with her specialists due to her complex medical history. I have messaged her PCP about this as well, patient is aware it is up to her PCP to decide how often she is seen by her. Orders: Orders AMB Urinalysis Automated Today N39.0 - Urinary tract infection, site not specified, Z13.9 - Encounter for screening, unspecified Urine Culture Today N39.0 - Urinary tract infection, site not specified SARS-CoV2/FLU/RSV Today R09.89 - Other specified symptoms and signs involving the circulatory and respiratory systems Medications: New cefuroxime axetil 500 mg PO Q12H 10 tabs 0RF albuterol sulfate 1.25 mg (3 mL) inhalation Q4-6H PRN 75 mL 0RF Shortness Of Breath Or Wheezing Coding Level of Care Code Est Pt Level 5 (87872) Diagnoses Acute viral sinusitis J01.90; B97.89 Acute cystitis with hematuria N30.01 Urinary tract infection type: acute cystitis Hematuria presence: with hematuria Polyarthralgia M25.50
== END 2025-01-28 15:21 | disposition home or self-care (01) ==
LOC: HO.HMCWIS 13:46
PROVIDERS: Visit Provider Physician Assistant
DX: J01.90 Acute sinusitis, unspecified (principal); B97.89 Other viral agents as the cause of diseases classified elsewhere; N30.01 Acute cystitis with hematuria; M25.50 Pain in unspecified joint; N39.0 Urinary tract infection, site not specified; Z13.9 Encounter for screening, unspecified

== ENCOUNTER → 2025-01-28 16:47 | Outpatient (BNV) | payer OTHER, SELFPAY | PROVIDERS: Visit Provider Radiology Diagnostic Radiology | DX: S22.080A Wedge compression fracture of T11-T12 vertebra, initial encounter for closed fracture (principal); M41.84 Other forms of scoliosis, thoracic region; M41.82 Other forms of scoliosis, cervical region; R07.1 Chest pain on breathing; M41.80 Other forms of scoliosis, site unspecified | CPT/HCPCS: 71046; 72040; 72072 ==

== ENCOUNTER 2025-02-03 11:45 | Outpatient (AMB) | payer OTHER, SELFPAY ==
--- NOTE | 2025-02-03 11:53 | MHC.PC.OV ---
Vital Signs 02/03/25 11:54 Height 5 ft 4 in Weight 138 lb 3.677 oz BMI 23.7 BP 132/60 Blood Pressure Location Rt brachial Position Sitting Pulse 94 Pulse Source Pulse Oximeter Temp 97.3 F Temp Source Temporal Artery Scan Pulse Oximetry (%) 97 Oxygen Delivery Method Room Air Intake Visit Reasons: Follow Up Central Supply Technician Required: No Dye Reel Operator Helper: Not Required per policy Accompanied by: Self / Same As Patient Allergies hydroxychloroquine (From Plaquenil) Allergy (Intermediate, Verified 02/03/25 11:54) Vomiting leflunomide Allergy (Intermediate, Verified 02/03/25 11:54) Diarrhea adhesive tape Allergy (Unknown, Verified 02/03/25 11:54) Unknown erythromycin base (ERYTHROMYCIN BASE) Allergy (Unknown, Verified 02/03/25 11:54) UNKNOWN latex (LATEX) Allergy (Unknown, Verified 02/03/25 11:54) UNKNOWN acetaminophen (From Tylenol) Adverse Reaction (Unknown, Verified 02/03/25 11:54) elevates LFT's Medication List - Last Reconciled 02/03/25 by Jo Ann Hebert PA-C [AFO As directed] albuterol sulfate 1.25 mg (3 mL) inhalation Q4-6H PRN cefuroxime axetil 500 mg PO Q12H colchicine 0.6 mg PO BID 30 days cyclosporine 0.05% (Restasis) 1 drp ophthalmic (eye) BID dextroamphetamine-amphetamine 20 mg 1 tab PO BID diazepam 5 mg PO TID PRN dicyclomine 20 mg (2 x 10 mg) PO BID PRN 90 days docusate sodium 100 mg PO BID duloxetine 60 mg PO DAILY duloxetine 30 mg PO DAILY epinephrine (EpiPen) 0.3 mg (0.3 mL) IM Q10M PRN erenumab-aooe (Aimovig Autoinjector) 140 mg subcut QMONTH gabapentin 1 tab at bedtime 3 days and titrate to bid for 3 days then tid orally 3 times a day; glucosamine-chondroitin 250-200 mg (Osteo Bi-Flex) 2 tabs PO BID leg brace (Knee Support Brace) wear as directed. Bilateral knee hinged brace with patella stabilization. Dx: Kings-Danlos Syndrome lidocaine 5% 1 appl topical BID PRN lidocaine HCl 2% 1 appl topical BID-TID PRN Magic Mouthwash Diphen/Lido/Antacid 1:1:1 240 mL orally; Lidocaine Viscous 2 % 80mL; diphenhydramine 12.5 mg/5 mL 80mL; aluminum-mag hydrox-simeth [id number]/5mL 80mL Swish, gargle and split 5 mL every 4-6 hours as needed. metoclopramide HCl 5 mg PO TID PRN minoxidil 1.25 mg PO BEDTIME mupirocin 2% 1 appl topical BID PRN ondansetron 4 mg PO BID PRN oxycodone 10 mg PO Q8H prednisolone acetate 1% 1 drp ophthalmic (eye) DAILY prucalopride (Motegrity) 1 mg PO DAILY 90 days Shower Chair As directed tizanidine 4 mg PO Q8H 30 days [transfer bench As directed] ubrogepant (Ubrelvy) 50 mg PO ONCE PRN walker (Ultra-Light Rollator misc) As directed [wheelchair As directed] Tobacco use date assessed: 02/03/25 Dental Screening Dental Screen Date: 11/04/24 HPI Follow Up HPI Details 35-year-old female with past medical history of polyarthralgia, asthma, Behcet's disease, myelopathy, anxiety and depression last seen 10/2024 coming in for follow up. In review of the notes, patient was seen by rheum 01/2025 at which point patient was treated for URI, cervical and thoracic spine XR were ordered. She will continue on colchicin and infliximab infusions every 8 weeks and RTC in 3 months. She was also referred to Dr. Palomo at [facility] ortho. For upper GI bleed she was referred to GI for consideration of EGD. Presenting for management of multiple chronic conditions. The patient reports worsening right-sided musculoskeletal issues, including right arm pain and right knee instability where her knee pops out. She states the knee has not healed on its own for almost a year and feels it requires repair, noting more significant injuries to it recently. She is awaiting appointment with ortho in February. Regarding her gastrointestinal symptoms, she describes vomiting, including occasionally vomiting blood or coffee-ground like material, with the most recent episode a couple of days ago. She complains of severe abdominal pain, alternating constipation and diarrhea, poor appetite, and a sensation of something stuck in her chest. She has a known history of gastritis, and a prior endoscopy did not show signs of reflux, but she feels things have changed. She missed a previous GI appointment due to transportation issues. Neurologically, her migraines have been a little better with her current medication. She missed a follow-up appointment with her neurologist, Dr. Up, because of a medical transportation issue and was awaiting a call back to reschedule. She reports pain and numbness radiating from her neck down her right arm and had a previous EMG order from her carton forming machine adjuster that was not fulfilled. In terms of ENT issues, she developed nasal ulcerations and a perforation about a two months ago following a severe sinusitis episode. She also has nasal polyps and has not been contacted by ENT regarding them. Her respiratory history includes asthma, which typically flares up when she is sick, causing a sensation of breathing through a straw. Her nebulizer is currently not working, and she has not been able to use it. 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 Father No problems noted. Social History Household Members: Spouse and Family Housing: House Are you a primary child care sitter to a significant other at home: No Do you presently have visiting nurse or other home services: No Alcohol intake: current Alcohol intake frequency: does not drink Patient Tobacco Use Status: Former Tobacco user Tobacco use type: Cigarette e-Cigarette/Vaping Use: Currently Using Second Hand Smoke Exposure: Yes Substance Use Type: Marijuana Advance Directives Date on File: 10/29/23 service: No Current occupational status: disabled Cognitive needs: Yes (Wheelchair, Walker, Cane) Hearing needs: No Vision needs: Yes (Glasses) Female Reproductive History Menstrual Age of Menarche: 10 Questionnaire PHQ-9 Over the last 2 weeks, how often have you been bothered by any of the following problems? 1. Little interest or pleasure in doing things: not at all 2. Feeling down, depressed, or hopeless: nearly every day (severe anxiety) 3. Trouble falling or staying asleep, or sleeping too much: nearly every day 4. Feeling tired or having little energy: nearly every day 5. Poor appetite or overeating: nearly every day 6. Feeling bad about yourself - or that you are a failure or have let yourself or your family down: nearly every day 7. Trouble concentrating on things, such as reading the newspaper or watching television: nearly every day 8. Moving or speaking so slowly that other people could have noticed. Or the opposite - being so fidgety or restless that you have been moving around a lot more than usual: not at all 9. Thoughts that you would be better off or of hurting yourself in some way: not at all Total score: 18 Source: Developed by Drs. Mikael Maher, Saritha Us, David Ramos and colleagues, with an educational gigi from [employer]. Thrive Questionnaire Date Thrive assessed: 11/04/24 ISAC-7 AMB Questionnaire ISAC-7 Date ISAC - 7 assessed: 11/04/24 Feeling nervous, anxious, or on edge: 3 = Nearly every day Not being able to stop or control worryin = Not at all Worrying too much about different things: 0 = Not at all Trouble relaxin = Not at all Being so restless that it is hard to sit still: 0 = Not at all Becoming easily annoyed or irritable: 0 = Not at all Feeling afraid as if something awful might happen: 0 = Not at all Total ISAC-7 score (0-4 normal; 5-9 mild; 10-14 moderate; 15-21 severe): 3 Source: Developed by Drs. Mikael Maher, Saritha Us, David Ramos and colleagues, with an educational gigi from [employer]. Review of Systems Const Denies body aches, Denies chills, Denies fever(s), Denies headache(s) and Denies poor appetite Eyes Reports no additional complaints ENT Denies dizziness and Denies headache(s) Card Denies chest pain, Denies lightheadedness and Denies dyspnea Resp Reports cough, Denies hemoptysis, Denies excessive phlegm production and Denies dyspnea GI Reports as per HPI, Reports abdominal pain, Denies constipation, Reports dyspepsia, Reports heartburn, Denies diarrhea, Reports nausea and Denies vomiting Reports no additional complaints Musc Reports no additional complaints and Denies abnormal gait Skin/Breast Reports system reviewed and no additional complaints, except as documented Neuro Denies abnormal gait, Denies dizziness and Denies headache(s) Psych Reports no additional complaints Physical exam (Primary Care) Vital Signs: Last Vital Signs Temp 97.3 F 02/03/25 11:54 Pulse 94 02/03/25 11:54 BP 132/60 02/03/25 11:54 Pulse Ox 97 02/03/25 11:54 Oxygen Delivery Method Room Air 02/03/25 11:54 BMI result Body Mass Index 23.7 Tobacco/Smoking Status: Tobacco use Status Tobacco use date assessed 02/03/25 02/03/25 11:54 Patient Tobacco Use Status Former Tobacco user 02/03/25 11:54 Tobacco use type Cigarette 02/03/25 11:54 e-Cigarette/Vaping Use Currently Using 02/03/25 11:54 PHQ-9: PHQ-9 Score PHQ-9: Total score 18 02/03/25 12:07 Thrive Assessment: Date of Thrive Assessment Date Thrive assessed 11/04/24 02/03/25 11:54 Const General: cooperative, healthy appearing, comfortable and no acute distress Orientation/consciousness: patient oriented x3 HENMT Head: Yes normocephalic Ears: hearing grossly normal bilaterally General nose exam: Normal external nose present Eyes General: appearance normal, both eyes and all related structures Conjunctivae: conjunctivae normal Neck Neck: Yes full ROM and Yes no lymphadenopathy Resp Effort & Inspection: normal respiratory effort Auscultation: clear to auscultation bilaterally, no crackles, no rales, no rhonchi and no wheezes Cardio Rate: regular rate Rhythm: regular rhythm Skin General skin exam: no rashes or lesions noted Neuro General: patient oriented x3 Gait exam (Neuro): Normal gait present Extrem General: Yes normal to inspection, Yes full ROM and No edema Psych Affect: normal affect Attitude: cooperative Insight: Good insight present (Psych) Judgement: Good judgement present (Psych) Coding Level of Care Code Est Pt Level 4 (61400) Diagnoses Palpitations R00.2 Benign joint hypermobility syndrome M35.7 Behcet disease with multisystem involvement M35.2 Intractable chronic migraine with aura and without status migrainosus G43.E19 Intractability: intractable Status migrainosus presence: without status migrainosus Sinus disease J34.9 Nasal septum perforation J34.89 Asthma J45.909 Neuropathy G62.9 Coffee ground emesis K92.0 Tear of meniscus of right knee as current injury S83.206A Assessment & Plan Assessment & Plan (1) Palpitations: Code(s): R00.2 - Palpitations Category: Medical Plan: She is currently working with Cardiology for intermittent palpitations and has been worked up for POTS disease and has tilt-table testing coming up in the next few months. Continue to follow with Cardiology. Holter monitor had previously been ordered however patient has not yet returned it. (2) Benign joint hypermobility syndrome: Code(s): M35.7 - Hypermobility syndrome Category: Medical Plan: The patient is experiencing severe knee pain and is awaiting surgical intervention, with previous surgery canceled unexpectedly. She was referred to [facility] for orthopedics. She is awaiting a PA for a pain pump through [facility] pain management. (3) Behcet disease with multisystem involvement: Comment: Recently she developed increased joint pain in setting of URI consisting of intermittent fevers T-max a 103.3 degrees days ago, sinusitis, rhinorrhea, ear fullness. She has had intermittent fevers for 1 month. Since Remicade infusion her symptoms have progressed. We discussed risk of infections with immunosuppression. Her back and neck pain have worsened after a recent fall. 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 Partial control with colchicine 0.6mg BID for oral ulcers with side effect of diarrhea (when she discontinued it, ulcers increased). Otezla 02/2024-11/2024 when Remicade was started, controlled oral ulcers and cutaneous disease. Low-dose prednisone causes agitation. No benefit in controlling joint pain with methylprednisolone. Cortisone injections to bilateral knees from pain management PSSP caused increased pain. MTX caused diarrhea. She has MTHFR mutation. 4 days on Leflunomide caused headache, nausea, dizziness, abdominal pain and hair loss. She has history of dry eyes (SSA/SSB negative) treated with prednisolone topical, punctate plugs by Dr. Michel. She did not tolerate hydroxychloroquine due to vomiting started by Ophthalmology for dry eye syndrome. She saw Dr. Luther Villavicencio Opthalmologist 03/14/2024 who did not see any clinical signs of systemic inflammation in her eyes. She has history of Raynaud's syndrome and benign hypermobility syndrome. History of uterine and rectal prolapse. She was referred to Genetics at [facility] but no showed to appointment as patient did not have a ride. Neurological evaluation with imaging and EMGs have not revealed neurological involvement of Behcet's syndrome. She has had bilateral upper and R lower extremity EMG is that revealed bilateral carpal tunnel syndrome (03/2023 [facility] note), EMGs bilateral lower extremities [facility] 11/02/2023 normal, CT brain December 2022 and MRI C to T-spine 08/22/2022, MRI L-spine January 2021 has been negative. MRI brain May 2023 ordered by neurologist at [facility] was negative. Remicade started for inflammatory arthritis 12/02/2024- Code(s): M35.2 - Behcet's disease Category: Medical Plan: The patient is awaiting initiation of infliximab infusions to manage joint pain associated with Beh?et's disease. Continue to follow up with Rheumatology (4) Chronic migraine with aura: Comment: with epsidoes of ptosis and right face weakness complex medical history- Behcets , Ehler Danlos Code(s): G43.E09 - Chronic migraine with aura, not intractable, without status migrainosus Category: Medical Qualifiers: Intractability: intractable Status migrainosus presence: without status migrainosus Qualified Code(s): G43.E19 - Chronic migraine with aura, intractable, without status migrainosus Plan: For chronic migraines she is working with a neurologist at this time and to continue on the current medication regimen as prescribed by Neurology. (5) Sinus disease: Code(s): J34.9 - Unspecified disorder of nose and nasal sinuses Category: Medical Plan: The patient reports chronic sinus infections and nasal polyps, with a perforated septum likely exacerbated by Beh?et's disease-related ulcers. She is requesting a referral to ENT which was placed today (6) Nasal septum perforation: Code(s): J34.89 - Other specified disorders of nose and nasal sinuses Category: Medical Plan: See above (7) Asthma: Code(s): J45.909 - Unspecified asthma, uncomplicated Category: Medical Plan: Asthma was well managed on current medication. Continue to use albuterol as needed. She typically only uses the albuterol nebulizer when she is sick and nebulizer machine is broken. Prescription was updated for new machine. (8) Neuropathy: Code(s): G62.9 - Polyneuropathy, unspecified Category: Medical Plan: The patient experiences debilitating back pain and symptoms of radiculopathy, including pain and numbness from her neck down to her arm. A new referral will be placed for an EMG to evaluate her right arm and leg, as a previous order from rheumatology was not processed correctly. The patient is also being set up for a HEAD WAITER/WAITRESS BANQUET services evaluation. (9) Coffee ground emesis: Comment: With associated abdominal pain Code(s): K92.0 - Hematemesis Category: Medical Plan: Due to symptoms of severe abdominal pain, vomiting with blood, and poor appetite, there is a high concern for a peptic ulcer. The patient's famotidine will be discontinued and she will be started on pantoprazole 40 mg for better gastric protection. She was advised to avoid all NSAIDs and follow a low-acid diet. A referral to GI will be placed to reschedule her missed appointment for further evaluation. (10) Tear of meniscus of right knee as current injury: Code(s): S83.206A - Unspecified tear of unspecified meniscus, current injury, right knee, initial encounter Category: Medical Plan: The patient reports severe, chronic right knee pain with instability that has persisted for a year. An MRI of the right knee will be ordered for further evaluation. We are also awaiting prior orthopedic test results that were not forwarded. Plan This note was constructed using voice recognition software. While every effort has been made to ensure accuracy and otter trawler boatswain, still areas may have been included sometimes these areas may affect the content or meeting of the given symptoms. Total time spent caring for the patient today was 30 minutes. This includes time spent before the visit reviewing the chart, time spent during the visit, and time spent after the visit and documentation. Patient was informed and verbally consented to the use of an ambient scribe for clinic note documentation during this visit. Orders: Orders NE electromyogram (EMG) Today G62.9 - Polyneuropathy, unspecified NE nerve conduction velocity Today G62.9 - Polyneuropathy, unspecified TSH reflex Free T4 Today M35.2 - Behcet's disease, Z13.29 - Encounter for screening for other suspected endocrine disorder Comprehensive Met. Panel Today M35.2 - Behcet's disease, Z00.00 - Encounter for general adult medical examination without abnormal findings Free T4 (Free Thyroxine) Today M35.2 - Behcet's disease, Z13.29 - Encounter for screening for other suspected endocrine disorder MR knee RT wo con Today G89.29 - Other chronic pain, M19.90 - Unspecified osteoarthritis, unspecified site, M25.561 - Pain in right knee, M25.562 - Pain in left knee, S83.206A - Unspecified tear of unspecified meniscus, current injury, right knee, initial encounter Vitamin B12 and Folate Today M35.2 - Behcet's disease, Z13.21 - Encounter for screening for nutritional disorder Vitamin D 25-OH Total Today M35.2 - Behcet's disease, Z13.21 - Encounter for screening for nutritional disorder Complete Blood Count Auto Diff Today M35.2 - Behcet's disease, Z13.0 - Encounter for screening for diseases of the blood and blood-forming organs and certain disorders involving the immune mechanism Lipid Panel Today Z13.220 - Encounter for screening for lipoid disorders Referrals Ear/Nose/Throat Referral J34.89 - Other specified disorders of nose and nasal sinuses, J34.9 - Unspecified disorder of nose and nasal sinuses Medications: New pantoprazole 40 mg PO DAILY 90 tabs 0RF [nebulizer w/ mask and supplies] As directed 1 ea 0RF J45.909 - Unspecified asthma, uncomplicated
[2025-02-03 11:54] VITALS: BP 132/60; PULSE 94; TEMP 36.3; O2SAT 97; BMI 23.7
--- OUTSIDE RECORDS SUMMARY | 2025-02-03 13:04 | XMS_ITS | Clinical Summary ---
Author Organization [facility] Address [facility] [employer] [facility] [address] [place] [id number] Phone Care Team Providers Care Crop Farm Helper Name Role Phone Jo Ann Hebert Primary [...] 4 tablet, 0 Refills, Maintenance, 03/06/22 14:34:00 [id number], Partial fill upon patient request if the [...] Conservative therapy not effective. Patient noting decreased chief operator synthesis strength and progressive pain. -will refer to [...] 9:20 AM EDT): Will be scheduled with [facility] GI. Saw Dr. Reyes who [...] (04/20/2019 2:05 PM EDT): Possible GI vs OXIDATION OPERATOR etiology. S/p appendectomy-possible adhesion formation, endometriosis. -will obtain CT abdomen/pelvis. Has not had one since onset of pain -urgent referral to OXIDATION OPERATOR to discuss pain/recent u/s with possible [...] 2017. She would like referral to new pest control supervisor given her recent bad experience with criss [...] Department Care Team Description 12/30/2024 Ancillary Orders [facility] [address] [place] [id number] Natalee Dotson PA-C Instability of right knee joint (Primary Dx) 12/18/2024 2:30 PM EST Office Visit [facility] [address] [address] Cr Kidd MD Patellar instability of right knee (Primary Dx); Patellar instability of left knee; Instability of right knee joint 11/11/2024 2:00 PM EDT Office Visit [facility] [address] [place] [address], [address] [place] [address] Jeremiah Leal MD Patellar instability of right knee (Primary Dx); Chronic pain of right knee; Patellar instability of left knee; Old tear of meniscus of right knee, unspecified meniscus, unspecified tear type; EDS (Kings-Danlos syndrome); POTS (postural orthostatic tachycardia syndrome); Behcet's disease; Right foot drop 11/11/2024 1:30 PM EDT - 11/11/2024 11:59 PM EDT Hospital Encounter [facility] [place] [address] Jeremiah Leal MD Discharge Disposition: Home or Self Care 11/11/2024 1:15 PM EDT - 11/11/2024 1:29 PM EDT Hospital Encounter [facility] [address] [address] Jeremiah Leal MD Discharge Disposition: Home or Self Care 11/11/2024 Ancillary Orders [facility] [address] [place] [address] Jeremiah Leal MD 11/11/2024 Ancillary Orders [facility] [address] [place] [address] Jeremiah Leal MD 11/11/2024 Ancillary Orders [facility] [address] [place] [address] Jeremiah Leal MD 11/10/2024 Orders Only [facility] [address] [place] [address] Jeremiah Leal MD Right knee pain, unspecified [...] change. Moderate effusion. [facility] XR KNEE 3 VIEW [...] R esult from Last [address] [address] [id number] [place] [address] [place] [id number] [facility] [place] [address] [place] [id number] [facility] A[employer] Care Teams Crop Farm Helper Relationship Specialty Start Date End Date Jo Ann Hebert PA [address] [place] [address] [facility] [place] [id number] PCP - General Physician Semiautomatic Stitcher Operator 10/03/24 Additional Source Comments The information contained in this document represents components of the legal health record. It is not the complete legal health record.[facility]
--- OUTSIDE RECORDS SUMMARY | 2025-02-03 13:04 | XMS_ITS | Encounter Summary ---
Author Organization [facility] Address [facility] [employer] [address] [place] [address] Phone Care Team Providers Care Dispensing And Measuring Optician Name Role Phone Pcp, Unknown Primary Care Provider Unavailabl e Pcp, Unknown Primary Care Provider Unavailabl e Jo Ann Hebert Primary Care Provide r Encounter Details Date Type Department Care Team (Late st Contact Info) Description 04/15/2022 Procedure Pass [facility], Ct Scan - [address] [address] Social History Tobacco Use Types Packs/Day Years [...] documented as of this encounter Care Teams Dispensing And Measuring Optician Relationship Specialty Start Date End Date Pcp, Unknown PCP - General 04/15/22 04/11/23 Pcp, Unknown PCP - General 04/12/23 10/02/24 Jo Ann Hebert PA [address] [place] [address] [place] [address] PCP - General Physician University Relations Director 10/03/24 documented as of this encounter Additional Source Comments The information contained in this document represents components of the legal health record. It is not the complete legal health record.[facility]
--- OUTSIDE RECORDS SUMMARY | 2025-02-03 13:04 | XMS_ITS | Clinical Summary ---
Author Organization [facility] Prior to 07/12/24 Address [address] [place] [address] Care Team Providers Care Transportation Security Officer Name Role Phone Ana Cortez NP Primary Care Provider [phone] Allergies Active Allergy Reactions Criticality Noted Date [...] age to complete this topic Care Teams Transportation Security Officer Relationship Specialty Start Date End Date Ana Cortez FURNITURE ASSEMBLER [address] [address] PCP - General Family Medicine 09/21/22
--- OUTSIDE RECORDS SUMMARY | 2025-02-03 13:04 | XMS_ITS | Encounter Summary ---
Author Organization [facility] Address [facility] [employer] [facility] [address] [place] [address] Phone Care Team Providers Care Consumer Recruiter Name Role Phone Jo Ann Hebert Primary Care Provide r Reason for Referral * MRI/CAT Scan - Authorized Specialty Diagnoses / Procedures Referred By Rob salamanca Referred To Contact Radiology Diagnoses Instability of right knee joint Procedures CT 3D Reconstruction Knee CHG 3D RENDERING W/INTERP&POSTPROC DIFF WORK STATION Natalee Dotson PA-C [address] [place] [address] Department [place] [address] Phone: tel: fax: [email or web address] Referral ID Status Reason Start Date Expiration Date V isits Requested Visits Authorized [id number] Authorized 12/24/2024 02/22/2025 1 1 Encounter Details Date Type Department Care Team (Late st Contact Info) Description 12/30/2024 Ancillary Orders [facility] [address] [place] [address] Natalee Dotson PA-C [address] [place] [address] Department [place] [address] [email or web address] Instability of right knee joint (Primary Dx) [...] Routine Instability of right knee joint Expected: 03/16/2025, Expires: 04/01/2025 documented as of this encounter Visit Diagnoses Diagnosis Instability of right knee joint- Primary documented in this encounter Additional Health Concerns Assessment Noted Time PHQ-2 Depression Total Score: 1 04/17/19 20 1:38 PM EST documented as of this encounter Care Teams Consumer Recruiter Relationship Specialty Start Date End Date Jo Ann Hebert PA [address] [place] [address] Dr Dennis [facility] DAQUAN MENDEZ [address] PCP - General Physician Operator Maintainer 10/03/24 documented as of this encounter Additional Source Comments The information contained in this document represents components of the legal health record. It is not the complete legal health record.[facility]
--- OUTSIDE RECORDS SUMMARY | 2025-02-03 13:04 | XMS_ITS | Clinical Summary ---
Author Organization [address] Address [address] [place] [phone] Phone Care Team Providers Care Environmental Tech Name Role Phone Jo Ann Hebert Primary Care Provider Allergies Active Allergy Reactions [...] EST Office Visit [facility] Re[facility] Surgery [address] [address] Sierra Isidro PA Status post panniculectomy (Primary Dx) 12/11/2024 10:15 AM EDT Office Visit Plastic Reconstructive [address] [address] [place]ro PA Status post panniculectomy (Primary Dx); Aftercare following surgery of the skin or subcutaneous tissue 12/04/2024 1:07 PM EDT - 12/04/2024 11:59 PM EDT Hospital Encounter [facility] Ultrasound [address] [place] [address] Status post panniculectomy; Abdominal wall seroma, sequela Discharge Disposition: Home or Self Care 11/24/2024 11:30 AM EDT Office Visit Plastic & Reconstructive Surgery [address] [address] [place]ro PA Abdominal wall seroma, sequela (Primary Dx); Status post panniculectomy 11/18/2024 10:30 AM EDT Office Visit Plastic & Reconstructive [address] [address] Sierra Isidro PA Status post panniculectomy (Primary Dx) from Last 3 Months Immunizations Immunization Administration Dates Next Due Tdap Tetanus diptheria acell ular pertussis (Boostrix; Adacel) 7yo and older 10/13/2015 Surgical History Surgery Date Site/Laterality Comments TONSILLECTOMY PROCEDURE: HISTORICAL TONSILLECTOMY OTHER SURGICAL HISTORY PROCEDURE: REMOVAL OF TMJ CONDYLE APPENDECTOMY PROCEDURE: HISTORICAL APPENDECTOMY ESOPHAGOGASTRODUODENOSCOPY 03/29/15 PROCEDURE: MD EGD TRANSORAL BIOPSY SINGLE/MULTIPLE; COMMENT: mild distal [...] Health Maintenance Due Date Last Done Comments Drug Screen 1989 Non-Opioid Controlled Substance Agreement 1989 COVID-19 Vaccine (#1) 1994 Hepatitis B Vaccines [...] Dictated Date: 12/04/2024 14:35 ET Assigned Physician: Beranbe Lin Reviewed and Electronically Signed By: Bernabe Lin Signed Date: 12/04/2024 14:36 ET Workstation ID: [id number] Transcribed By: Self Edit Transcribed Date: 12/04/2024 [...] LIDOCAINE was used for local anesthesia. A 5-Icelandic OleOleeh catheter was advanced under continuous ultrasound guidance [...] 1% LIDOCAINE was usedfor local anesthesia. A 5-Icelandic OleOleeh catheter was advanced undercontinuous ultrasound guidance into [...] Signed Date: 12/04/2024 14:36 ET Workstation ID: [id number] Transcribed By: Self Edit Transcribed Date: 12/04/2024 14:35 ET us Sierra HUYNH US PROCEDURES Final Result * Culture wound deep (11/24/2024 11:35 AM EDT) Only the most recent of2 resultswithin the time period is included. Culture, Wound No growth at 3 days 11/27/2024 8:26 AM EDT [facility] Gram Stain Result No polymorphonuclear leukocytes, No epithelial cells, and No organisms noted 11/27/2024 8:26 AM EDT [facility] Swab Structure of abdominopelvic wall / Unknown Non-blood Collection / Unknown 11/24/2024 11:35 AM EDT 11/24/2024 11:35 AM EDT [facility] MICROBIOLOGY - GENERAL OR DERABLES Final Result [facility] [address] [place] [address], [place] [phone] * (ABNORMAL) Lipid panel (04/18/2018) LDL/HDL Ratio [...] RESULTING AGENCY - 06/20/2017 4:55 PM EDT [id number] THINPREP PAP, IMAGED AND CELL BLOCK: NEGATIVE [...] Z34.81, PAP HX: NEGATIVE 06/09/2017, [facility] CYTOLOGY ORDERA BLES Final Result HISTORICAL TESTING LAB RESULTING AGENCY from Last 3 Months or Most Recently Relevant to Health Maintenance Insurance [facility] [place] [address] Advance Directives * Full Code - Default [...] currently active code status orders. Care Teams Environmental Tech Relationship Specialty Start Date End Date Jo nAn Hebert PA [address] [place] [address], [address] [place] [address] PCP - General 08/25/24
--- OUTSIDE RECORDS SUMMARY | 2025-02-03 13:04 | XMS_ITS | Encounter Summary ---
Author Organization [facility] Address [facility] [address] [place] [address] Phone Care Team Providers Care Clam Shucking Machine Tender Name Role Phone Nilda Watson Unavailable Octavio Castillo MD Primary Care Provider [phone] Octavio Castillo MD Unavailable [phone] Maryma Wu MD Primary Care Provid er Glenny Dyson NP Primary Care Provider + Yair Gallo MD Primary Care Provider Glenny Dyson TROUBLE SHOOTING MECHANIC Primary Care Provider + Pcp, Unknown Primary Care Provider Unavailabl e Pcp, Unknown Primary Care Provider Unavailabl e Jo Ann Hebert Primary Care Provide r Encounter Details Date Type Department Care Team (Late st Contact Info) Description 04/26/2020 Ancillary Orders Virtual Department [address] [place] [address] [address] [id number] viral [email or web address] Social History Tobacco Use Types [...] documented as of this encounter Care Teams Clam Shucking Machine Tender Relationship Specialty Start Date End Date Nilda Watson PA [address] [place] [address] [email or web address] PCP - Resident PCP 04/11/19 07/14/21 Octavio Castillo MD [address] [place] [address], [address] [place] [address] [email or web address] PCP - General Internal Medicine 07/10/19 07/14/21 Maryam Wu MD [address] [place] [address] [place] [address] [email or web address] PCP - General Family Medicine 07/15/21 03/05/22 Glenny Dyson NP [address] [place] [address] PCP - General Nurse Practitioner 03/06/22 03/15/22 Yair Gallo MD [address] [place] [address] PCP - General Internal Medicine 03/16/22 03/16/22 Glenny [place] [address] PCP - General Nurse Practitioner 03/17/22 04/14/22 Pcp, Unknown PCP - General 04/15/22 04/11/23 Pcp, Unknown PCP - General 04/12/23 10/02/24 Jo Ann Hebert PA [address] [place] [address] PCP - General Physician French Folder 10/03/24 Octavio Castillo MD [address] [place] [address], [address] [place] [address] [email or web address] Insurance Assigned Provider 08/18/19 11/20/20 documented as of this encounter Additional Source Comments The information contained in this document represents components of the legal health record. It is not the complete legal health record.[facility]
--- OUTSIDE RECORDS SUMMARY | 2025-02-03 13:04 | XMS_ITS | Encounter Summary ---
Author Organization [facility] Address [address] [place] [address] Phone Care Team Providers Care Drug Safety Associate Name Role Phone Pcp, Unknown Primary Care Provider Jo Ann Mg Primary Care Provide r Encounter Details Date Type Department Care Team (Late st Contact Info) Description 04/12/2023 Procedure Pass [facility], Ct Scan - [facility] [address] [place] [address] Social History Tobacco Use Types Packs/Day Years [...] documented as of this encounter Care Teams Drug Safety Associate Relationship Specialty Start Date End Date Pcp, Unknown PCP - General 04/12/23 10/02/24 Jo Ann Hebert PA [address] [place] [address] [place] [address] PCP - General Physician Odd Shoe Examiner 10/03/24 documented as of this encounter Additional Source Comments The information contained in this document represents components of the legal health record. It is not the complete legal health record.[facility]
--- OUTSIDE RECORDS SUMMARY | 2025-02-03 13:04 | XMS_ITS | Encounter Summary ---
Author Organization [facility] Address [facility] [employer] [facility] [address] [place] [address] Phone Care Team Providers Care Wrap Knitting Machine Operator Name Role Phone Glenny Dyson NP Primary Care Provider + Pcp, Unknown Primary Care Provider Unavailabl e Pcp, Unknown Primary Care Provider Unavailabl e Jo Ann Hebert Primary Care Provide r Encounter Details Date Type Department Care Team (Late st Contact Info) Description 03/17/2022 Procedure Pass [facility] Admitting Dept Virtual Department [address] [place] [address] Social History Tobacco Use Types Packs/Day Years [...] documented as of this encounter Care Teams Wrap Knitting Machine Operator Relationship Specialty Start Date End Date Glenny Dyson NP [address] [place] [address] PCP - General Nurse Practitioner 03/17/22 04/14/22 Pcp, Unknown PCP - General 04/15/22 04/11/23 Pcp, Unknown PCP - General 04/12/23 10/02/24 Jo Ann Hebert PA [address] [place] [address] PCP - General Physician Cement And Concrete Plant Worker 10/03/24 documented as of this encounter Additional Source Comments The information contained in this document represents components of the legal health record. It is not the complete legal health record.[facility]
--- OUTSIDE RECORDS SUMMARY | 2025-02-03 13:04 | XMS_ITS | Encounter Summary ---
Author Organization [facility] Address [facility] POS on [facility] [address] [place] [address] Phone Care Team Providers Care Medical Office Manager Name Role Phone Glenny Dyson NP Primary Care Provider + Pcp, Unknown Primary Care Provider Unavailabl e Pcp, Unknown Primary Care Provider Unavailabl e Jo Ann Hebert Primary Care Provide r Encounter Details Date Type Department Care Team (Late st Contact Info) Description 03/22/2022 Procedure Pass [facility], Ct Scan - [address] [address] Social History Tobacco Use Types Packs/Day Years [...] documented as of this encounter Care Teams Medical Office Manager Relationship Specialty Start Date End Date Glenny Dyson NP [address] [place] [address] PCP - General Nurse Practitioner 03/17/22 04/14/22 Pcp, Unknown PCP - General 04/15/22 04/11/23 Pcp, Unknown PCP - General 04/12/23 10/02/24 Jo Ann Hebert PA [address] [facility] [place] [address] PCP - General Physician Cook Taco 10/03/24 documented as of this encounter Additional Source Comments The information contained in this document represents components of the legal health record. It is not the complete legal health record.[facility]
--- OUTSIDE RECORDS SUMMARY | 2025-02-03 13:04 | XMS_ITS | Clinical Summary ---
Author Organization [facility] Address [address] [place] [address] Care Team Providers Care Museum Docent Name Role Phone Ana Cortez Primary Care Provider [phone] Allergies Active Allergy Reactions Criticality Noted Date [...] Assessment & Plan: Will be scheduled with [facility]. Saw Dr. Reyes who recommended work [...] - Td or Tdap) 10/12/2025 10/13/2015 Insurance [facility] [place] [address] [employer] Care Teams Museum Docent Relationship Specialty Start Date End Date Ana Cortez [address] [place] [address] PCP - General 04/10/23
--- OUTSIDE RECORDS SUMMARY | 2025-02-03 13:05 | XMS_ITS | Encounter Summary ---
Author Organization [facility] Address [address] [place] [address] Care Team Providers Care Food Demonstrator Name Role Phone Ana Cortez Primary Care Provider [phone] Encounter Details Date Type Department Care Team (Late st Contact Info) Description 08/11/2022 Orders Only [facility] Clinic [address] [place] [address] Brenda Willard, DO [address] [place], [place] [phone] Social History Tobacco Use Types Packs/Day Years [...] on filedocumented in this encounter Care Teams Food Demonstrator Relationship Specialty Start Date End Date Ana Cortez [address] [place] [address] PCP - General 04/10/23 documented as of this encounter
== END 2025-02-03 12:33 | disposition home or self-care (01) ==
LOC: HO.HMCH 11:46
DX: R00.2 Palpitations (principal); M35.7 Hypermobility syndrome; M35.2 Behcet's disease; G43.E19 Chronic migraine with aura, intractable, without status migrainosus; J34.9 Unspecified disorder of nose and nasal sinuses; J34.89 Other specified disorders of nose and nasal sinuses; J45.909 Unspecified asthma, uncomplicated; G62.9 Polyneuropathy, unspecified; K92.0 Hematemesis; S83.206A Unspecified tear of unspecified meniscus, current injury, right knee, initial encounter

== ENCOUNTER → 2025-02-03 11:45 | Outpatient (BNVA) | payer OTHER, SELFPAY | DX: R00.2 Palpitations (principal); M35.7 Hypermobility syndrome; M35.2 Behcet's disease; G43.E19 Chronic migraine with aura, intractable, without status migrainosus; J34.9 Unspecified disorder of nose and nasal sinuses; J34.89 Other specified disorders of nose and nasal sinuses; J45.909 Unspecified asthma, uncomplicated; K92.0 Hematemesis; S83.206A Unspecified tear of unspecified meniscus, current injury, right knee, initial encounter; Z79.899 Other long term (current) drug therapy; Z13.31 Encounter for screening for depression | CPT/HCPCS: 96127; 99212 ==

== ENCOUNTER 2025-02-06 16:05 | Outpatient (REF) | payer OTHER, SELFPAY ==
--- OUTSIDE RECORDS SUMMARY | 2025-02-06 16:08 | XMS_ITS | Clinical Summary ---
Author Organization [facility] Prior to 07/12/24 Address [address] [place] [address] Care Team Providers Care Manifest/Order Organizer Print Orders Name Role Phone Ana Cortez NP Primary Care Provider [phone] Allergies Active Allergy Reactions Criticality Noted Date [...] age to complete this topic Care Teams Manifest/Order Organizer Print Orders Relationship Specialty Start Date End Date Ana Cortez CORPORATE AIRCRAFT MECHANIC [address] [address] PCP - General Family Medicine 09/21/22
--- OUTSIDE RECORDS SUMMARY | 2025-02-06 16:08 | XMS_ITS | Clinical Summary ---
Author Organization [facility] Address [facility] [employer] [facility] [address] [place] [address] Phone Care Team Providers Care Advertisement Distributor Name Role Phone Jo Ann Hebert Primary [...] 4 tablet, 0 Refills, Maintenance, 03/06/22 14:34:00 [id number], Partial fill upon patient request if the [...] Conservative therapy not effective. Patient noting decreased foil wrapper strength and progressive pain. -will refer to [...] 9:20 AM EDT): Will be scheduled with [facility]. Saw Dr. Reyes who [...] (04/20/2019 2:05 PM EDT): Possible GI vs PEDIATRIC HOSPITALIST etiology. S/p appendectomy-possible adhesion formation, endometriosis. -will obtain CT abdomen/pelvis. Has not had one since onset of pain -urgent referral to PEDIATRIC HOSPITALIST to discuss pain/recent u/s with possible retained [...] 2017. She would like referral to new legislative advocate given her recent bad experience with criss [...] Department Care Team Description 12/30/2024 Ancillary Orders [facility] [address] [place] [address] Natalee Dotson PA-C Instability of right knee joint (Primary Dx) 12/18/2024 2:30 PM EST Office Visit [facility] [address] [address] Cr Kidd MD Patellar instability of right knee (Primary Dx); Patellar instability of left knee; Instability of right knee joint 11/11/2024 2:00 PM EDT Office Visit [facility] Orthopaedic Surgery Sports Medicine Service [address] [place] [address], [address] [place] [address] Jeremiah Leal MD Patellar instability of right knee (Primary Dx); Chronic pain of right knee; Patellar instability of left knee; Old tear of meniscus of right knee, unspecified meniscus, unspecified tear type; EDS (Kings-Danlos syndrome); POTS (postural orthostatic tachycardia syndrome); Behcet's disease; Right foot drop 11/11/2024 1:30 PM EDT - 11/11/2024 11:59 PM EDT Hospital Encounter [facility] [place] [address] Jeremiah Leal MD Discharge Disposition: Home or Self Care 11/11/2024 1:15 PM EDT - 11/11/2024 1:29 PM EDT Hospital Encounter [facility] [address] [address] Jeremiah Leal MD Discharge Disposition: Home or Self Care 11/11/2024 Ancillary Orders [facility] [address] [place] [address] Jeremiah Leal MD 11/11/2024 Ancillary Orders [facility] [address] [place] [address] Jeremiah Leal MD 11/11/2024 Ancillary Orders [facility] [address] [place] [address] Jeremiah Leal MD 11/10/2024 Orders Only [facility] [address] [place] [address] Jeremiah Leal MD Right knee pain, unspecified [...] change. Moderate effusion. Procedure Note [facility] - 11/11/2024 XR KNEE 3 [...] R esult from Last [address] [place] [address] [address] [place] [address] [place] [address] [place] [facility] [place] [address] [address] [address] A[employer] [facility] A[employer] Care Teams Advertisement Distributor Relationship Specialty Start Date End Date Jo Ann Hebert PA [address] [place] [address] [place] [address] PCP - General Physician Embalmer/Funeral Director 10/03/24 Additional Source Comments The information contained in this document represents components of the legal health record. It is not the complete legal health record.[facility]
--- OUTSIDE RECORDS SUMMARY | 2025-02-06 16:08 | XMS_ITS | Encounter Summary ---
Author Organization [facility] Address [address] [place] [address] Phone Care Team Providers Care Mental Health Worker Name Role Phone Pcp, Unknown Primary Care Provider Jo Ann Mg Primary Care Provide r Encounter Details Date Type Department Care Team (Late st Contact Info) Description 04/12/2023 Procedure Pass [facility], Ct Scan - [facility] [address] [place] [address] Social History Tobacco Use Types Packs/Day Years [...] documented as of this encounter Care Teams Mental Health Worker Relationship Specialty Start Date End Date Pcp, Unknown PCP - General 04/12/23 10/02/24 Jo Ann Hebert PA [address] [place] [address] [place] [address] PCP - General Physician Stone Unloader 10/03/24 documented as of this encounter Additional Source Comments The information contained in this document represents components of the legal health record. It is not the complete legal health record.[facility]
--- OUTSIDE RECORDS SUMMARY | 2025-02-06 16:08 | XMS_ITS | Encounter Summary ---
Author Organization [facility] Address Critical access hospital [facility] [address] [place] [address] Phone Care Team Providers Care Collections Clerk Name Role Phone Glenny Dyson NP Primary Care Provider + Pcp, Unknown Primary Care Provider Unavailabl e Pcp, Unknown Primary Care Provider Unavailabl e Jo Ann Hebert Primary Care Provide r Encounter Details Date Type Department Care Team (Late st Contact Info) Description 03/22/2022 Procedure Pass [facility], Ct Scan - [address] [address] Social History Tobacco Use Types Packs/Day Years [...] documented as of this encounter Care Teams Collections Clerk Relationship Specialty Start Date End Date Glenny Dyson NP [address] [place] [address] PCP - General Nurse Practitioner 03/17/22 04/14/22 Pcp, Unknown PCP - General 04/15/22 04/11/23 Pcp, Unknown PCP - General 04/12/23 10/02/24 Jo Ann Hebert PA [address] [facility] [place] [address] PCP - General Physician Manager Product 10/03/24 documented as of this encounter Additional Source Comments The information contained in this document represents components of the legal health record. It is not the complete legal health record.[facility]
--- OUTSIDE RECORDS SUMMARY | 2025-02-06 16:08 | XMS_ITS | Encounter Summary ---
Author Organization [facility] Address [facility] [employer] [address] [place] [address] Phone Care Team Providers Care Scientist Engineer Name Role Phone Pcp, Unknown Primary Care Provider Unavailabl e Pcp, Unknown Primary Care Provider Unavailabl e Jo Ann Hebert Primary Care Provide r Encounter Details Date Type Department Care Team (Late st Contact Info) Description 04/15/2022 Procedure Pass [facility], Ct Scan - [address] [address] Social History Tobacco Use Types Packs/Day Years [...] documented as of this encounter Care Teams Scientist Engineer Relationship Specialty Start Date End Date Pcp, Unknown PCP - General 04/15/22 04/11/23 Pcp, Unknown PCP - General 04/12/23 10/02/24 Jo Ann Hebert PA [address] [place] [address] [place] [address] PCP - General Physician Cnc Field Service Engineer 10/03/24 documented as of this encounter Additional Source Comments The information contained in this document represents components of the legal health record. It is not the complete legal health record.[facility]
--- OUTSIDE RECORDS SUMMARY | 2025-02-06 16:08 | XMS_ITS | Clinical Summary ---
Author Organization [facility] Address [address] [place] [address] Care Team Providers Care Matrix Supervisor Name Role Phone Ana Cortez Primary Care Provider [phone] Allergies Active Allergy Reactions Criticality Noted Date [...] Assessment & Plan: Will be scheduled with [facility] GI. Saw Dr. Reyes who [...] - Td or Tdap) 10/12/2025 10/13/2015 Insurance [facility] MEDICAID [employer] Care Teams Matrix Supervisor Relationship Specialty Start Date End Date Ana Cortez [address] [place] [address] PCP - General 04/10/23
--- OUTSIDE RECORDS SUMMARY | 2025-02-06 16:09 | XMS_ITS | Encounter Summary ---
Author Organization [facility] Address [address] [place] [address] Care Team Providers Care Blindstitch Lapel Padder Name Role Phone Ana Cortez Primary Care Provider Encounter Details Date Type Department Care Team (Late st Contact Info) Description 08/11/2022 Orders Only [facility] [address] [place] [address] Brenda Willard, DO [address] [place], [place] [id number] Social History Tobacco Use Types Packs/Day Years [...] on filedocumented in this encounter Care Teams Blindstitch Lapel Padder Relationship Specialty Start Date End Date Ana Cortez [address] [place] [address] PCP - General 04/10/23 documented as of this encounter
--- OUTSIDE RECORDS SUMMARY | 2025-02-06 16:09 | XMS_ITS | Encounter Summary ---
Author Organization [facility] Address [facility] [address] [place] [address] Phone Care Team Providers Care Twister Operator Name Role Phone Jo Ann Hebert Primary Care Provide r Reason for Referral * MRI/CAT Scan - Authorized Specialty Diagnoses / Procedures Referred By Rob salamanca Referred To Contact Radiology Diagnoses Instability of right knee joint Procedures CT 3D Reconstruction Knee CHG 3D RENDERING W/INTERP&POSTPROC DIFF WORK STATION Natalee Dotson PA-C [address] [place] [address] Department [place] [address] Phone: tel: fax: [email or web address] Referral ID Status Reason Start Date Expiration Date V isits Requested Visits Authorized [id number] Authorized 12/24/2024 02/22/2025 1 1 Encounter Details Date Type Department Care Team (Late st Contact Info) Description 12/30/2024 Ancillary Orders [facility] [address] [place] [address] Natalee Dotson PA-C [address] [place] [address] Department [place] [address] [email or web address] Instability of right knee joint (Primary Dx) [...] documented as of this encounter Care Teams Twister Operator Relationship Specialty Start Date End Date Jo Ann Hebert PA [address] [place] [address] Dr Dennis [facility] DAQUAN MENDEZ [address] PCP - General Physician Real Estate Director 10/03/24 documented as of this encounter Additional Source Comments The information contained in this document represents components of the legal health record. It is not the complete legal health record.[facility]
--- OUTSIDE RECORDS SUMMARY | 2025-02-06 16:09 | XMS_ITS | Encounter Summary ---
Author Organization [facility] Address [facility] [address] [place] [address] Phone Care Team Providers Care Sales Closer Name Role Phone Glenny Dyson NP Primary Care Provider + Pcp, Unknown Primary Care Provider Unavailabl e Pcp, Unknown Primary Care Provider Unavailabl e Jo Ann Hebert Primary Care Provide r Encounter Details Date Type Department Care Team (Late st Contact Info) Description 03/17/2022 Procedure Pass [facility] Endoscopy Admitting Dept Virtual Department [address] [place] [phone] Social History Tobacco Use Types Packs/Day Years [...] as of this encounter Care Teams Sales Closer Relationship Specialty Start Date End Date Glenny Dyson NP [address] [place] [address] PCP - General Nurse Practitioner 03/17/22 04/14/22 Pcp, Unknown PCP - General 04/15/22 04/11/23 Pcp, Unknown PCP - General 04/12/23 10/02/24 Jo Ann Hebert PA [address] [place] [address] PCP - General Physician Surveillance Inspector 10/03/24 documented as of this encounter Additional Source Comments The information contained in this document represents components of the legal health record. It is not the complete legal health record.[facility]
--- OUTSIDE RECORDS SUMMARY | 2025-02-06 16:09 | XMS_ITS | Clinical Summary ---
Author Organization [address] Address [address] [place] [phone] Phone Care Team Providers Care Skiver Box Toe Name Role Phone Jo Ann Hebert Primary Care Provider [phone] Allergies Active Allergy Reactions Criticality Noted Date [...] EST Office Visit Plastic & Reconstructive Surgery [address] [address] [place] Is[place] PA Status post panniculectomy (Primary Dx) 12/11/2024 10:15 AM EDT Office Visit Plastic Reconstructive [address] [address] [place] Status post panniculectomy (Primary Dx); Aftercare following surgery of the skin or subcutaneous tissue 12/04/2024 1:07 PM EDT - 12/04/2024 11:59 PM EDT Hospital Encounter [facility] Ultrasound [address] [place] [address] Status post panniculectomy; Abdominal wall seroma, sequela Discharge Disposition: Home or Self Care 11/24/2024 11:30 AM EDT Office Visit Plastic & Reconstructive Surgery [address] [address] [place] Abdominal wall seroma, sequela (Primary Dx); Status post panniculectomy 11/18/2024 10:30 AM EDT Office Visit Plastic & Reconstructive [address] [address] [place] Is[place] PA Status post panniculectomy (Primary Dx) from Last 3 Months Immunizations Immunization Administration Dates Next Due Tdap Tetanus diptheria acell ular pertussis (Boostrix; Adacel) 7yo and older 10/13/2015 Surgical History Surgery Date Site/Laterality Comments TONSILLECTOMY PROCEDURE: HISTORICAL TONSILLECTOMY OTHER SURGICAL HISTORY PROCEDURE: REMOVAL OF TMJ CONDYLE APPENDECTOMY PROCEDURE: HISTORICAL APPENDECTOMY ESOPHAGOGASTRODUODENOSCOPY 03/29/15 PROCEDURE: MO EGD TRANSORAL BIOPSY SINGLE/MULTIPLE; COMMENT: mild distal [...] Signed Date: 12/04/2024 14:36 ET Workstation ID: [id number] Transcribed By: Self Edit Transcribed Date: 12/04/2024 [...] was used for local anesthesia. A 5-Portuguese [employer] catheter was advanced under continuous ultrasound guidance [...] LIDOCAINE was usedfor local anesthesia. A 5-Portuguese [employer] catheter was advanced undercontinuous ultrasound guidance into [...] Signed Date: 12/04/2024 14:36 ET Workstation ID: [id number] Transcribed By: Self Edit Transcribed Date: 12/04/2024 [...] No organisms noted 11/27/2024 8:26 AM EDT [facility] Swab Structure of abdominopelvic wall / Unknown Non-blood Collection / Unknown 11/24/2024 11:35 AM EDT 11/24/2024 11:35 AM EDT New [facility] MICROBIOLOGY - GENERAL OR DERABLES Final Result [facility] [address] [place] [address], [place] [phone] * (ABNORMAL) Lipid panel (04/18/2018) LDL/HDL Ratio [...] RESULTING AGENCY - 06/20/2017 4:55 PM EDT [id number] THINPREP PAP, IMAGED AND CELL BLOCK: NEGATIVE [...] Z34.81, PAP HX: NEGATIVE 06/09/2017, [place] [facility] CYTOLOGY ORDERA BLES Final Result HISTORICAL TESTING LAB RESULTING AGENCY from Last 3 Months or Most Recently Relevant to Health Maintenance Insurance [facility] Advance Directives * Full Code - [...] currently active code status orders. Care Teams Skiver Box Toe Relationship Specialty Start Date End Date Jo Ann Hebert PA [address] [place] [address], [address] [place] [address] PCP - General 08/25/24
--- OUTSIDE RECORDS SUMMARY | 2025-02-06 16:09 | XMS_ITS | Encounter Summary ---
Author Organization [facility] Address [facility] [employer] [facility] [address] [place] [address] Phone Care Team Providers Care Monorail Charger Operator Name Role Phone Nilda Watson Unavailable [phone] Octavio Castillo MD Primary Care Provider [phone] Octavio Castillo MD Unavailable [phone] Maryam Wu MD Primary Care Provid er Glenny Dyson NP Primary Care Provider + Yair Gallo MD Primary Care Provider [phone] Glenny Dyson RISK MANAGEMENT CONSULTANT Primary Care Provider + Pcp, Unknown Primary Care Provider Unavailabl e Pcp, Unknown Primary Care Provider Unavailabl e Jo Ann Hebert Primary Care Provide r Encounter Details Date Type Department Care Team (Late st Contact Info) Description 04/26/2020 Ancillary Orders Virtual Department [address] [place] [address] [address] [id number] viral [email or web address] Social History Tobacco Use Types [...] documented as of this encounter Care Teams Monorail Charger Operator Relationship Specialty Start Date End Date Nilda Watson PA [address] [place] [address] [email or web address] PCP - Resident PCP 04/11/19 07/14/21 Octavio Castillo MD [address] [place] [address], [address] [place] [address] [email or web address] PCP - General Internal Medicine 07/10/19 07/14/21 Maryam Wu MD [address] [place] [address] [place] [address] [email or web address] PCP - General Family Medicine 07/15/21 03/05/22 Glenny Dyson NP [address] [place] [address] PCP - General Nurse Practitioner 03/06/22 03/15/22 Yair Gallo MD [address] [place] [address] PCP - General Internal Medicine 03/16/22 03/16/22 [place] [address] PCP - General Nurse Practitioner 03/17/22 04/14/22 Pcp, Unknown PCP - General 04/15/22 04/11/23 Pcp, Unknown PCP - General 04/12/23 10/02/24 Jo Ann Hebert PA [address] [place] [address] PCP - General Physician Property Maintenance Supervisor 10/03/24 Octavio Castillo MD [address] [place] [address], [address] [place] [address] [email or web address] Insurance Assigned Provider 08/18/19 11/20/20 documented as of this encounter Additional Source Comments The information contained in this document represents components of the legal health record. It is not the complete legal health record.[facility]
[2025-02-06 16:17] LABS: MANUAL DIFF FLAG NO
[2025-02-06 17:21] LABS: Hematocrit 35.1 % (37.0-47.0); Hemoglobin 12.1 g/dl (12.0-16.0); Imm Gran Abs Auto 0.02 X10*3/uL (0.00-0.03); Imm Gran Pct Auto 0.3 % (0.0-0.4); Lymphocytes Absolute Auto 1.4 X10*3/uL (1.2-4.9); Mean Corpuscular HGB Conc 34.5 g/dl (31.0-35.0); Mean Corpuscular Hemoglobin 29.0 pg (27.0-33.0); Mean Corpuscular Volume 84.2 fL (80.0-98.0); NRBC Abs Auto 0.000 X10*3/uL (0.0-0.012); NRBC Pct Auto 0.0 /100WBC (0.0-0.2); Platelet Count 153 X10*3/uL (160-400); Red Blood Count 4.17 X10*6/uL (4.20-5.50); White Blood Count 7.3 X10*3/uL (4.8-10.8)
[2025-02-06 18:02] LABS: Alanine Aminotransferase 16 U/L (0-31); Albumin Level 4.1 g/dL (3.5-5.0); Alkaline Phosphatase 65 U/L (39-117); Anion Gap 9 (12-20); Aspartate Amino Transferase 35 U/L (5-31); Blood Urea Nitrogen 8 mg/dL (9-16); Calcium 8.5 mg/dL (8.4-10.2); Carbon Dioxide 29 mmol/L (22-29); Chloride 100 mmol/L (96-108); Cholesterol 136 mg/dL (<200); Estimated Glomerular Filt Rate > 60; HDL Cholesterol 38 mg/dL (>40); Potassium 3.1 mmol/L (3.3-5.1); Sodium 135 mmol/L (135-145); Total Protein 6.2 g/dL (6.5-8.0); Triglycerides 71 mg/dL (<150)
[2025-02-06 18:20] LABS: Free T4 (Free Thyroxine) 0.80 ng/dL (0.71-1.85)
[2025-02-06 18:32] LABS: Folate 5.4 ng/mL (> or = 4.0); Vitamin B12 862 pg/mL (200-900)
== END 2025-02-06 16:06 | disposition home or self-care (01) ==
LOC: HO.LAB 16:05
DX: Z00.00 Encounter for general adult medical examination without abnormal findings (principal); M35.2 Behcet's disease; Z13.29 Encounter for screening for other suspected endocrine disorder; Z13.21 Encounter for screening for nutritional disorder; Z13.220 Encounter for screening for lipoid disorders; Z13.0 Encounter for screening for diseases of the blood and blood-forming organs and certain disorders involving the immune mechanism
CPT/HCPCS: 36415; 80053; 80061; 82306; 82607; 82746; 84439; 84443; 85025